=== PATIENT | male | born 1960 | race Caucasian/White ===

== ENCOUNTER 2023-11-18 19:12 | Emergency (ER) | payer MEDICAID, SELFPAY ==
--- NOTE | 2023-11-18 19:25 | PC.NURSE ---
SEEN LEAVING ER .
--- NOTE | 2023-11-18 19:45 | PC.NURSE ---
NO ANSWER AT ER LOBBY OR OUTSIDE TO BE V/S.
== END 2023-11-18 19:46 | disposition left against medical advice (07) ==
LOC: SERX 20:07
PROVIDERS: Emergency Provider Emergency Medicine
DX: Z53.21 Procedure and treatment not carried out due to patient leaving prior to being seen by health care provider (principal)

== ENCOUNTER 2024-02-22 01:50 | Emergency (ER) | payer MEDICAID, SELFPAY ==
[2024-02-22 01:51] VITALS: BMI 22.9
[2024-02-22 01:55] VITALS: BP 151/81; PULSE 88; RESP 20; TEMP 36.7; O2SAT 98
[2024-02-22] MEDS: LIDOCAINE JELLY 2% (Urojet) 10 ML TUBE TOP (02:23)
[2024-02-22 02:49] LABS: Collection Type, Urine Clean Catch; Squamous Epithelial Cell,Urine 0 /hpf (0-5)
[2024-02-22 02:54] LABS: Bilirubin,Urine Negative (Negative); Blood,Urine 3+ (Negative); Budding Yeast,Urine Present; Color,Urine Yellow (Lt Yel-Yel); Glucose, Urine Negative (Negative); Ketones,Urine Negative (Negative); Leukocyte Esterase,Urine Positive (Negative); Nitrite,Urine Negative (Negative); PH,Urine 7.5 (5.0-7.0); Protein,Urine 3+ (Neg - Trace); RBC,Urine 841 /hpf (0-3); Specific Gravity,Urine 1.021 (1.001-1.035); Urobilinogen,Urine Negative mg/dL (0.0-1.0); WBC,Urine 610 /hpf (0-5)
[2024-02-22 02:57] LABS: Clarity,Urine Turbid (Clear/Hazy)
--- NOTE | 2024-02-22 03:25 | EDNOTE_ITS ---
ED Male Genitalurinary RME/HPI General Chief complaint: Urogenital-Male Stated complaint: UNABLE TO URINATE Time Seen by Provider: 02/22/24 01:54 Arrival date/time: 02/22/24 01:50 RME / HPI RME / HPI Narrative: This section includes all my notes and documentations, including HPI, PE, and ED course. Naun Alexandra MD HPI: 63-year-old male here to be evaluated with urinary retention. Has indwelling Melgar catheter. He reports no output for about 10 hours. He reports worsening suprapubic pain. No other complaints. ROS: Gastrointestinal: negative except as documented in HPI. Genitourinary: negative except as documented in HPI. Musculoskeletal: negative except as documented in HPI. Skin: negative except as documented in HPI. Neurological: negative except as documented in HPI. Physical Exam: General: Alert and oriented. In severe pain. Eyes: Conjunctivae and lids clear. Lungs: No respiratory distress. Abdomen: Soft and nontender. Normal bowel sounds. No distension. No rebound or guarding. Back: No CVA tenderness. Skin: Warm and dry. Neuro: Alert and oriented X 3. UA remarkable for leukocyte Estrace, RBC, WBC, and yeast. At this point, diagnoses include urinary retention and UTI. Treatment here included Melgar catheter. Prescribed cefdinir and Diflucan and recommended more outpatient care. Based on my best medical judgment, made decision no further evaluation or treatment indicated at this time. Patient understands and agrees to the discharge instructions customized and printed, see below. Discharge instructions from Dr. Alexandra: 1. Unfortunately, new Melgar catheter relieves your urinary retention. But you have a urinary tract infection. 2. Take cefdinir and Diflucan to kill the germs causing the infection.? Increase oral fluid to flush it out.? Maintain clear urine.? If dark or yellow, increase oral fluid. 3. Care of the Melgar catheter as instructed in the attached handout. 4. See a private doctor on 02/25/24 for recheck.? Ask to check the final urine c ulture results from today to make sure cefdinir doesn't need to be changed due to resistance. 5. Seek immediate medical care with worsening, fever, or with any concerns. Naun Alexandra MD Related Data Home Medications ?Medication ?Instructions ?Recorded ?Confirmed tamsulosin 0.4 mg capsule 0.4 mg PO DAILY 01/19/21 07/02/21 Previous Rx's ?Medication ?Instructions ?Recorded sulfamethoxazole 800 1 tab PO BID #14 tabs 04/04/23 mg-trimethoprim 160 mg tablet acetaminophen 500 mg capsule 1,000 mg (2 x 500 mg) PO TID #30 04/23/23 caps tamsulosin 0.4 mg capsule 0.4 mg PO QDAY #14 caps 11/01/23 sulfamethoxazole 800 1 tab PO BID #14 tabs 12/28/23 mg-trimethoprim 160 mg tablet (Bactrim DS) cefdinir 300 mg capsule 300 mg PO BID #14 caps 02/22/24 fluconazole 200 mg tablet 200 mg PO QDAY #7 tabs 02/22/24 (Diflucan) Allergies Allergy/AdvReac Type Severity Reaction Status Date / Time No Known Allergies Allergy Verified 02/03/24 11:21 Course Quality Measures none Orders Category Date Time Status Melgar [Urinary Catheter, Remove] ONCE Care 02/22/24 02:35 Completed Melgar [Urinary Catheter] QS Care 02/22/24 02:35 Active Melgar to Leg Bag Routine Care 02/22/24 01:55 Ordered UA [Urinalysis] Stat Lab 02/22/24 02:30 Completed Lidocaine Jelly 2% Urojet [Xylocaine Jelly 2% Urojet] Med 02/22/24 02:18 Discontinued See Dose Instructions TOP X1 ONE Vital Signs Vital signs: Vital Signs Temperature 98.0 F 02/22/24 01:55 Pulse Rate 88 02/22/24 01:55 Respiratory Rate 20 02/22/24 01:55 Blood Pressure 151/81 H 02/22/24 01:55 Pulse Oximetry (%) 98 02/22/24 01:55 Oxygen Delivery Method Room Air 02/22/24 01:55 Urogenital - Male Patient data External records reviewed:: [facility] previous records Clinical information provided by:: patient Social determinants that could affect healthcare access:: none Patient has the following chronic illnesses:: Indwelling Melgar catheter How is presenting disease/condition affected by chronic disease/condition?: exacerbated by Evaluation data The following diagnostics were reviewed and interpreted by me:: lab results Lab and/or radiology exams considered but not ordered:: None Interpretation Summary: UTI Medications / Prescriptions Medications or Prescriptions considered but not ordered:: None Medication administrations:: Medication Administration History Discontinued Medications Lidocaine HCl (Lidocaine Jelly 2% (Urojet) 10 Ml Tube) 0 ml TOP X1 ONE Stop: 02/22/24 02:19 Last Admin: 02/22/24 02:23 Dose: 10 ml Documented By: DB None Consultations Consultation(s) initiated? (list below): No Diagnosis Urogenital Male Differential Diagnosis: urinary tract infection and acute retention of urine Most likely diagnosis given after review of the tests above:: Urinary retention and UTI Admission Indicated Admission indicated?: not indicated Explain why admission is indicated or not indicated:: Admission criteria not met Admission Request Was there a request for admission?: No Disposition Plan Disposition Plan: Discharge Discharge Attestation Discharge Attestation: The patient and all family members were given an opportunity to ask questions and understood the discharge instructions. Discharge instructions specifically effects, indications for sooner follow up or return to the emergency department, and the expected course of current diagnosis. Patient condition: Stable Discharge Plan Plan Patient Disposition: HOME (Self Care) Prescriptions/Referrals Prescriptions/Med Rec: New cefdinir 300 mg capsule 300 mg PO BID Qty: 14 0RF fluconazole [Diflucan] 200 mg tablet 200 mg PO QDAY Qty: 7 0RF No Action tamsulosin 0.4 mg capsule 0.4 mg PO DAILY sulfamethoxazole-trimethoprim [Bactrim DS] 800-160 mg tablet 1 tab PO BID Qty: 14 0RF sulfamethoxazole-trimethoprim 800-160 mg tablet 1 tab PO BID Qty: 14 0RF acetaminophen 500 mg capsule 1,000 mg PO TID Qty: 30 0RF tamsulosin 0.4 mg capsule 0.4 mg PO QDAY Qty: 14 0RF Problem List Clinical Impression: Acute urinary retention, Urinary tract infection Patient/Caregiver Discharge Instructions Discharge Activity: activity as tolerated Education Materials: ED Melgar Catheter, Care, ED Bladder Infection, Male (Adult) Additional Instructions: Discharge instructions from Dr. Alexandra: 1. Unfortunately, new Melgar catheter relieves your urinary retention. But you have a urinary tract infection. 2. Take cefdinir and Diflucan to kill the germs causing the infection.? Increase oral fluid to flush it out.? Maintain clear urine.? If dark or yellow, increase oral fluid. 3. Care of the Melgar catheter as instructed in the attached handout. 4. See a private doctor on 02/25/24 for recheck.? Ask to check the final urine culture results from today to make sure cefdinir doesn't need to be changed due to resistance. 5. Seek immediate medical care with worsening, fever, or with any concerns. Print Language: Polish Stand Alone Forms: Latoya Award Info., Patient Portal Info Letter
== END 2024-02-22 03:40 | disposition home or self-care (01) ==
LOC: SERX 03:54
PROVIDERS: Emergency Provider Emergency Medicine; PCP Family Medicine
DX: N39.0 Urinary tract infection, site not specified (principal)
CPT/HCPCS: 51702; 81001; 99283

== ENCOUNTER 2024-03-02 19:10 | Emergency (ER) | payer MEDICAID, SELFPAY ==
[2024-03-02 19:11] VITALS: BMI 22.9
[2024-03-02 19:47] VITALS: BP 143/68; PULSE 88; RESP 17; TEMP 37.1; O2SAT 96
--- NOTE | 2024-03-02 19:51 | PC.NURSE ---
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 PROVIDER MADE AWARE
== END 2024-03-02 19:50 | disposition left against medical advice (07) ==
LOC: SERX 19:55
PROVIDERS: Emergency Provider Emergency Medicine
DX: Z53.21 Procedure and treatment not carried out due to patient leaving prior to being seen by health care provider (principal)
CPT/HCPCS: 99281

== ENCOUNTER 2024-03-03 20:26 | Emergency (ER) | payer MEDICAID, SELFPAY ==
[2024-03-03 20:27] VITALS: BMI 24.1
--- NOTE | 2024-03-03 20:45 | PC.NURSE ---
no answer in lobby when called for vital signs
--- NOTE | 2024-03-03 21:00 | PC.NURSE ---
no answer in lobby when called for vital signs
--- NOTE | 2024-03-03 21:37 | PC.NURSE ---
no answer in lobby when called for vital signs
== END 2024-03-04 04:01 | disposition left against medical advice (07) ==
PROVIDERS: Emergency Provider Emergency Medicine
DX: Z53.21 Procedure and treatment not carried out due to patient leaving prior to being seen by health care provider (principal)

== ENCOUNTER 2024-03-14 18:49 | Emergency (ER) | payer MEDICAID, SELFPAY ==
[2024-03-14 18:50] VITALS: BMI 22.9
--- NOTE | 2024-03-14 19:18 | PC.NURSE ---
pt did not answer when name was called and was not found outside.
--- NOTE | 2024-03-14 19:53 | PC.NURSE ---
Pt called back to room and no answer
--- NOTE | 2024-03-14 20:10 | PC.NURSE ---
PT CALLED BACK TO A ROOM AND NO ANSWER
== END 2024-03-14 20:10 | disposition left against medical advice (07) ==
PROVIDERS: Emergency Provider Emergency Medicine
DX: Z53.21 Procedure and treatment not carried out due to patient leaving prior to being seen by health care provider (principal)

== ENCOUNTER 2024-03-15 12:52 | Emergency (ER) | payer MEDICAID, SELFPAY ==
[2024-03-15 12:53] VITALS: BMI 22.9
--- NOTE | 2024-03-15 13:05 | PD.EDMALE ---
ED Male Genitalurinary RME/HPI General Chief complaint: Medical Clearance Stated complaint: Needs turner catheter changed Time Seen by Provider: 03/15/24 13:00 Arrival date/time: 03/15/24 12:52 63-year-old male presents the emergency department today requesting Turner catheter change patient comes often for the same Limitations: no limitations Related Data Home Medications ?Medication ?Instructions ?Recorded ?Confirmed tamsulosin 0.4 mg capsule 0.4 mg PO DAILY 01/19/21 07/02/21 Previous Rx's ?Medication ?Instructions ?Recorded sulfamethoxazole 800 1 tab PO BID #14 tabs 04/04/23 mg-trimethoprim 160 mg tablet acetaminophen 500 mg capsule 1,000 mg (2 x 500 mg) PO TID #30 04/23/23 caps tamsulosin 0.4 mg capsule 0.4 mg PO QDAY #14 caps 11/01/23 sulfamethoxazole 800 1 tab PO BID #14 tabs 12/28/23 mg-trimethoprim 160 mg tablet (Bactrim DS) cefdinir 300 mg capsule 300 mg PO BID #14 caps 02/22/24 fluconazole 200 mg tablet 200 mg PO QDAY #7 tabs 02/22/24 (Diflucan) Allergies Allergy/AdvReac Type Severity Reaction Status Date / Time No Known Allergies Allergy Verified 03/14/24 18:52 Review of Systems Review of Systems Systems Reviewed: All systems reviewed, normal except as documented Constitutional Constitutional: Reports system reviewed and no additional complaints, except as documented, Denies fever(s) and Denies headache(s) Eyes Eyes: Reports system reviewed and no additional complaints, except as documented and Denies blurry vision ENT Ears, Nose, Mouth, and Throat: Reports system reviewed and no additional complaints, except as documented, Denies headache(s), Denies nasal congestion and Denies nasal discharge Cardiovascular Cardiovascular: Reports system reviewed and no additional complaints, except as documented, Denies chest pain and Denies dyspnea Respiratory Respiratory: Reports system reviewed and no additional complaints, except as documented, Denies chest congestion, Denies cough and Denies dyspnea Gastrointestinal Gastrointestinal: Reports system reviewed and no additional complaints, except as documented and Denies abdominal pain Genitourinary Genitourinary: Reports system reviewed and no additional complaints, except as documented and Reports other (Turner catheter problem) Integumentary/Breasts Skin/Breast: Reports system reviewed and no additional complaints, except as documented and Denies rash Neurologic Neurologic: Reports system reviewed and no additional complaints, except as documented, Reports as per HPI and Denies headache(s) Past Medical History Past Medical History NEUROLOGIC: Negative Neurological Disorders CARDIAC: Negative Cardiac Disorders ED Exam General Limitations: Present no limitations General appearance: Present alert and in no apparent distress Head Head exam: Present atraumatic Eye Eye exam: Present normal appearance, PERRL and EOMI ENT ENT exam: Present normal exam, normal oropharynx and mucous membranes moist Neck Neck exam: Present normal inspection, full ROM and trachea midline Chest Chest inspection: Present normal inspection and symmetric chest wall rise Respiratory Respiratory exam: Present normal lung sounds bilaterally; Absent respiratory distress Cardiovascular Cardiovascular exam: Present regular rate, normal rhythm and normal heart sounds Abdominal Exam Abdominal exam: Present soft and normal bowel sounds; Absent distention, tenderness, guarding, rebound or rigidity exam: Present other (Turner catheter in place) Extremities Exam Extremities exam: Present normal inspection and full ROM Back Exam Back exam: Present normal inspection and full ROM Neurological Exam Neurological exam: Present alert, oriented X3 and CN II-XII intact Psychiatric Psychiatric exam: Present normal affect and normal mood Skin Skin exam: Present warm, dry, intact and normal color Course Quality Measures none Orders Category Date Time Status Turner [Urinary Catheter] NOW Care 03/15/24 13:02 Active Lidocaine Jelly 2% Urojet [Xylocaine Jelly 2% Urojet] Med 03/15/24 13:02 Discontinued See Dose Instructions TOP X1 ONE Vital Signs Vital signs: O2 saturation 98% room air with normal Urogenital - Male MDM Narrative MDM Narrative:: 63-year-old male presents the emergency department today requesting Turner catheter change patient comes often for the same On exam patient well-appearing patient does not appear ill or toxic patient does not appear in any acute distress Patient reports no fever nausea or vomiting Patient's Turner catheter changed drains well Patient discharged home in no distress to follow-up with primary care doctor in the next 24 to 48 hours and for any worsening symptoms to return to the ER immediately Patient data External records reviewed:: [facility] previous records Clinical information provided by:: patient Social determinants that could affect healthcare access:: none Patient has the following chronic illnesses:: See history How is presenting disease/condition affected by chronic disease/condition?: caused by Evaluation data The following diagnostics were reviewed and interpreted by me:: other (specify) (N/A) Lab and/or radiology exams considered but not ordered:: Consider not ordered Interpretation Summary: N/A Medications / Prescriptions Medications or Prescriptions considered but not ordered:: Given Medication administrations:: Medication Administration History Discontinued Medications Lidocaine HCl (Lidocaine Jelly 2% (Urojet) 10 Ml Tube) 0 ml TOP X1 ONE Stop: 03/15/24 13:03 Last Admin: 03/15/24 13:29 Dose: 10 ml Documented By: PIOTR Given Consultations Consultation(s) initiated? (list below): No Diagnosis Urogenital Male Differential Diagnosis: urinary tract infection and acute retention of urine Most likely diagnosis given after review of the tests above:: Chronic urinary retention Admission Indicated Admission indicated?: not indicated Admission Request Was there a request for admission?: No Disposition Plan Disposition Plan: Discharge Discharge Attestation Discharge Attestation: The patient and all family members were given an opportunity to ask questions and understood the discharge instructions. Discharge instructions specifically effects, indications for sooner follow up or return to the emergency department, and the expected course of current diagnosis. Patient condition: Stable Discharge Plan Plan Patient Disposition: HOME (Self Care) Disposition Comment: Stable Prescriptions/Referrals Prescriptions/Med Rec: No Action tamsulosin 0.4 mg capsule 0.4 mg PO DAILY sulfamethoxazole-trimethoprim [Bactrim DS] 800-160 mg tablet 1 tab PO BID Qty: 14 0RF sulfamethoxazole-trimethoprim 800-160 mg tablet 1 tab PO BID Qty: 14 0RF acetaminophen 500 mg capsule 1,000 mg PO TID Qty: 30 0RF tamsulosin 0.4 mg capsule 0.4 mg PO QDAY Qty: 14 0RF cefdinir 300 mg capsule 300 mg PO BID Qty: 14 0RF fluconazole [Diflucan] 200 mg tablet 200 mg PO QDAY Qty: 7 0RF Problem List Clinical Impression: Acute on chronic urinary retention, Urinary catheter (Turner) change required Patient/Caregiver Discharge Instructions Education Materials: Self-Catheterization for Men Additional Instructions: Please follow up with your primary care doctor in the next 24-48hrs for any worsening symptoms return here immediately Print Language: Polish Stand Alone Forms: Latoya Award Info., Patient Portal Info Letter PA/FAMILY INDEPENDENCE CASE MANAGER Supervising Physician ALPHONSO/CECILIA Supervising Physician: Dr noel
[2024-03-15] MEDS: LIDOCAINE JELLY 2% (Urojet) 10 ML TUBE TOP (13:29)
== END 2024-03-15 13:42 | disposition home or self-care (01) ==
LOC: SERX 13:50
PROVIDERS: Emergency Provider Emergency Medicine
DX: Z46.6 Encounter for fitting and adjustment of urinary device (principal); R33.9 Retention of urine, unspecified
CPT/HCPCS: 51702; 99283

== ENCOUNTER 2024-03-21 21:38 | Emergency (ER) | payer MEDICAID, SELFPAY ==
[2024-03-21 21:39] VITALS: BMI 27.4
[2024-03-21 21:45] VITALS: BP 155/82; PULSE 107; RESP 17; TEMP 36.7; O2SAT 97
--- NOTE | 2024-03-21 22:50 | PD.EDMALE ---
ED Male Genitalurinary RME/HPI General Chief complaint: Urogenital-Male Stated complaint: MELGAR CAME OUT Time Seen by Provider: 03/21/24 21:41 Arrival date/time: 03/21/24 21:38 RME / HPI RME / HPI Narrative: This section includes all my notes and documentations, including HPI, PE, and ED course. Naun Alexandra MD HPI: 63-year-old male here to be evaluated with urinary retention. Has chronic indwelling urinary catheter, for about 2 years. Earlier today, the catheter pulled out. And he reports worsening suprapubic pain. No other complaints. ROS: All negative except as documented in HPI. Physical Exam: General: Alert and oriented. Appears uncomfortable. Eyes: Conjunctivae and lids clear. ENT: No nasal congestion. Neck: Supple. Lungs: No respiratory distress. Abdomen: Soft and nontender. Normal bowel sounds. No distension. No rebound or guarding. Back: No CVA tenderness. Skin: Warm and dry. Neuro: Alert and oriented X 3. Treatment here included new Melgar catheter insertion. He felt much better. Based on my best medical judgment, made decision no further evaluation or treatment indicated at this time. Patient understands and agrees to the discharge instructions customized and printed, see below. Discharge Instructions from Dr. Alexandra printed for you: 1. Melgar catheter was inserted for your urinary retention. 2. Care of the Melgar as instructed and attached handout. 3. See your private doctor on 03/23/2024 for recheck and further care. Ask to check the urine test results from today. 4. Seek immediate medical care with any concerns. Naun Alexandra MD Related Data Home Medications ?Medication ?Instructions ?Recorded ?Confirmed tamsulosin 0.4 mg capsule 0.4 mg PO DAILY 01/19/21 07/02/21 Previous Rx's ?Medication ?Instructions ?Recorded sulfamethoxazole 800 1 tab PO BID #14 tabs 04/04/23 mg-trimethoprim 160 mg tablet acetaminophen 500 mg capsule 1,000 mg (2 x 500 mg) PO TID #30 04/23/23 caps tamsulosin 0.4 mg capsule 0.4 mg PO QDAY #14 caps 11/01/23 sulfamethoxazole 800 1 tab PO BID #14 tabs 12/28/23 mg-trimethoprim 160 mg tablet (Bactrim DS) cefdinir 300 mg capsule 300 mg PO BID #14 caps 02/22/24 fluconazole 200 mg tablet 200 mg PO QDAY #7 tabs 02/22/24 (Diflucan) Allergies Allergy/AdvReac Type Severity Reaction Status Date / Time No Known Allergies Allergy Verified 03/21/24 21:40 Course Quality Measures none Orders Category Date Time Status Melgar to Leg Bag Routine Care 03/21/24 21:43 Ordered Lidocaine Jelly 2% Urojet [Xylocaine Jelly 2% Urojet] Med 03/21/24 21:42 Discontinued See Dose Instructions TOP X1 ONE Vital Signs Vital signs: Vital Signs Temperature 98.0 F 03/21/24 21:45 Pulse Rate 107 H 03/21/24 21:45 Respiratory Rate 17 03/21/24 21:45 Blood Pressure 155/82 H 03/21/24 21:45 Pulse Oximetry (%) 97 03/21/24 21:45 Oxygen Delivery Method Room Air 03/21/24 21:45 Urogenital - Male Patient data External records reviewed:: [facility] previous records Clinical information provided by:: patient Social determinants that could affect healthcare access:: none Patient has the following chronic illnesses:: Chronic indwelling Melgar catheter How is presenting disease/condition affected by chronic disease/condition?: exacerbated by Evaluation data The following diagnostics were reviewed and interpreted by me:: other (specify) (No diagnostic tests) Lab and/or radiology exams considered but not ordered:: None Interpretation Summary: Not applicable Medications / Prescriptions Medications or Prescriptions considered but not ordered:: None Medication administrations:: Medication Administration History Discontinued Medications Lidocaine HCl (Lidocaine Jelly 2% (Urojet) 10 Ml Tube) 0 ml TOP X1 ONE Stop: 03/21/24 21:43 Last Admin: 03/21/24 23:06 Dose: 10 ml Documented By: PEPE Topical lidocaine Consultations Consultation(s) initiated? (list below): No Diagnosis Urogenital Male Differential Diagnosis: acute retention of urine Most likely diagnosis given after review of the tests above:: Acute urinary retention Admission Indicated Admission indicated?: not indicated Explain why admission is indicated or not indicated:: Admission criteria not met Admission Request Was there a request for admission?: No Disposition Plan Disposition Plan: Discharge Discharge Attestation Discharge Attestation: The patient and all family members were given an opportunity to ask questions and understood the discharge instructions. Discharge instructions specifically effects, indications for sooner follow up or return to the emergency department, and the expected course of current diagnosis. Patient condition: Stable Discharge Plan Plan Patient Disposition: HOME (Self Care) Prescriptions/Referrals Prescriptions/Med Rec: No Action tamsulosin 0.4 mg capsule 0.4 mg PO DAILY sulfamethoxazole-trimethoprim [Bactrim DS] 800-160 mg tablet 1 tab PO BID Qty: 14 0RF sulfamethoxazole-trimethoprim 800-160 mg tablet 1 tab PO BID Qty: 14 0RF acetaminophen 500 mg capsule 1,000 mg PO TID Qty: 30 0RF tamsulosin 0.4 mg capsule 0.4 mg PO QDAY Qty: 14 0RF cefdinir 300 mg capsule 300 mg PO BID Qty: 14 0RF fluconazole [Diflucan] 200 mg tablet 200 mg PO QDAY Qty: 7 0RF Referrals: Parminder Lyles MD [Primary Care Provider] - In 1 week Problem List Clinical Impression: Acute urinary retention Patient/Caregiver Discharge Instructions Discharge Activity: activity as tolerated Education Materials: ED Melgar Catheter, Care, ED Urinary Retention, Male Additional Instructions: Discharge Instructions from Dr. Alexandra printed for you: 1. Melgar catheter was inserted for your urinary retention. 2. Care of the Melgar as instructed and attached handout. 3. See your private doctor on 03/23/2024 for recheck and further care. Ask to check the urine test results from today. 4. Seek immediate medical care with any concerns. Print Language: Liberian Stand Alone Forms: Latoya Award Info., Patient Portal Info Letter
[2024-03-21] MEDS: LIDOCAINE JELLY 2% (Urojet) 10 ML TUBE TOP (23:06)
== END 2024-03-21 23:30 | disposition home or self-care (01) ==
PROVIDERS: Emergency Provider Emergency Medicine; PCP Family Medicine
DX: R33.9 Retention of urine, unspecified (principal)
CPT/HCPCS: 51702; 81001; 99283

== ENCOUNTER 2024-03-24 18:23 | Emergency (ER) | payer MEDICAID, SELFPAY ==
[2024-03-24 18:24] VITALS: BMI 24.3
[2024-03-24 18:47] VITALS: BP 137/78; PULSE 89; RESP 19; TEMP 36.7; O2SAT 99
--- NOTE | 2024-03-24 19:11 | PD.EDMALE ---
ED Male Genitalurinary RME/HPI General Chief complaint: Urogenital-Male Stated complaint: F/C CAME OUT Time Seen by Provider: 03/24/24 19:05 Arrival date/time: 03/24/24 18:23 63M with history of BPH presents to ED for asking for Melgar replacement due to it falling out. Patient is finally getting surgery next month in [place]. Limitations: no limitations Related Data Home Medications ?Medication ?Instructions ?Recorded ?Confirmed tamsulosin 0.4 mg capsule 0.4 mg PO DAILY 01/19/21 07/02/21 Previous Rx's ?Medication ?Instructions ?Recorded sulfamethoxazole 800 1 tab PO BID #14 tabs 04/04/23 mg-trimethoprim 160 mg tablet acetaminophen 500 mg capsule 1,000 mg (2 x 500 mg) PO TID #30 04/23/23 caps tamsulosin 0.4 mg capsule 0.4 mg PO QDAY #14 caps 11/01/23 sulfamethoxazole 800 1 tab PO BID #14 tabs 12/28/23 mg-trimethoprim 160 mg tablet (Bactrim DS) cefdinir 300 mg capsule 300 mg PO BID #14 caps 02/22/24 fluconazole 200 mg tablet 200 mg PO QDAY #7 tabs 02/22/24 (Diflucan) Allergies Allergy/AdvReac Type Severity Reaction Status Date / Time No Known Allergies Allergy Verified 03/24/24 18:25 Review of Systems Review of Systems Systems Reviewed: All systems reviewed, normal except as documented Constitutional Constitutional: Reports system reviewed and no additional complaints, except as documented, Denies fever(s) and Denies headache(s) ENT Ears, Nose, Mouth, and Throat: Denies disequilibrium and Denies headache(s) Cardiovascular Cardiovascular: Reports system reviewed and no additional complaints, except as documented, Denies chest pain and Denies dyspnea Respiratory Respiratory: Reports system reviewed and no additional complaints, except as documented, Denies cough and Denies dyspnea Gastrointestinal Gastrointestinal: Reports system reviewed and no additional complaints, except as documented, Denies abdominal pain, Denies nausea and Denies vomiting Neurologic Neurologic: Reports system reviewed and no additional complaints, except as documented, Denies confusion, Denies disequilibrium and Denies headache(s) Psychiatric Psychiatric: Denies confusion Past Medical History Past Medical History NEUROLOGIC: Negative Neurological Disorders or Seizures CARDIAC: Negative Cardiac Disorders or Congestive Heart Failure RESPIRATORY: Negative Chronic Obstructive Pulmonary Disease (COPD) or Asthma GENITOURINARY: Positive Genitourinary Disorders, Kidney Stones and Benign Prostatic Hyperplasia; Negative Renal Disease MUSCULOSKELETAL: Positive Musculoskeletal Disorders and Degenerative Joint Disease ENDOCRINE: Negative Diabetes Mellitus Type 1 or Diabetes Mellitus Type 2 HEMATOLOGIC: Negative Sickle Cell Disease OTHER HISTORY: Negative Blood Transfusions, Blood Transfusion Reaction or Anesthesia Reactions Social History SMOKING STATUS: Current some day smoker SUBSTANCE USE: does not use ED Exam General Limitations: Present no limitations General appearance: Present alert and in no apparent distress Head Head exam: Present atraumatic Eye Eye exam: Present normal appearance, PERRL and EOMI ENT ENT exam: Present normal exam, normal oropharynx and mucous membranes moist Neck Neck exam: Present normal inspection, full ROM and trachea midline Chest Chest inspection: Present normal inspection and symmetric chest wall rise Respiratory Respiratory exam: Present normal lung sounds bilaterally Cardiovascular Cardiovascular exam: Present regular rate, normal rhythm and normal heart sounds Abdominal Exam Abdominal exam: Present soft and normal bowel sounds Extremities Exam Extremities exam: Present normal inspection and full ROM Back Exam Back exam: Present normal inspection and full ROM Neurological Exam Neurological exam: Present alert, oriented X3 and CN II-XII intact Psychiatric Psychiatric exam: Present normal affect and normal mood Skin Skin exam: Present warm, dry, intact and normal color Course Quality Measures none Orders Category Date Time Status Catheter [Urinary Catheter] QS Care 03/24/24 19:05 Active Melgar to Leg Bag Routine Care 03/24/24 19:05 Ordered Lidocaine Jelly 2% Urojet [Xylocaine Jelly 2% Urojet] Med 03/24/24 19:05 Discontinued See Dose Instructions TOP X1 ONE Vital Signs Vital signs: Vital Signs Temperature 98.0 F 03/24/24 18:47 Pulse Rate 89 03/24/24 18:47 Respiratory Rate 19 03/24/24 18:47 Blood Pressure 137/78 H 03/24/24 18:47 Pulse Oximetry (%) 99 03/24/24 18:47 Oxygen Delivery Method Room Air 03/24/24 18:47 O2 at 99% on RA and WNLs Urogenital - Male MDM Narrative MDM Narrative:: 63M with history of BPH presents to ED for asking for Melgar replacement due to it falling out. Patient is finally getting surgery next month in [place]. Physical exam reveals no ab tenderness. Patient is afebrile. Patient Melgar replaced. Urine flowed freely. Patient data External records reviewed:: [facility] previous records Clinical information provided by:: patient Social determinants that could affect healthcare access:: none Patient has the following chronic illnesses:: BPH How is presenting disease/condition affected by chronic disease/condition?: caused by Evaluation data The following diagnostics were reviewed and interpreted by me:: other (specify) (none) Lab and/or radiology exams considered but not ordered:: not ordered Interpretation Summary: n/a Medications / Prescriptions Medications or Prescriptions considered but not ordered:: ordered Medication administrations:: Medication Administration History Discontinued Medications Lidocaine HCl (Lidocaine Jelly 2% (Urojet) 10 Ml Tube) 0 ml TOP X1 ONE Stop: 03/24/24 19:06 above Consultations Consultation(s) initiated? (list below): No Diagnosis Urogenital Male Differential Diagnosis: urinary tract infection, priapism, urethritis, epididymitis, genital herpes simplex, prostatitis, acute retention of urine, inguinal hernia and other (Melgar replacement) Most likely diagnosis given after review of the tests above:: Melgar replacement Admission Indicated Admission indicated?: not indicated Admission Request Was there a request for admission?: No Disposition Plan Disposition Plan: Discharge Discharge Attestation Discharge Attestation: The patient and all family members were given an opportunity to ask questions and understood the discharge instructions. Discharge instructions specifically effects, indications for sooner follow up or return to the emergency department, and the expected course of current diagnosis. Patient condition: Stable Discharge Plan Plan Patient Disposition: HOME (Self Care) Disposition Comment: Stable Prescriptions/Referrals Prescriptions/Med Rec: No Action tamsulosin 0.4 mg capsule 0.4 mg PO DAILY sulfamethoxazole-trimethoprim [Bactrim DS] 800-160 mg tablet 1 tab PO BID Qty: 14 0RF sulfamethoxazole-trimethoprim 800-160 mg tablet 1 tab PO BID Qty: 14 0RF acetaminophen 500 mg capsule 1,000 mg PO TID Qty: 30 0RF tamsulosin 0.4 mg capsule 0.4 mg PO QDAY Qty: 14 0RF cefdinir 300 mg capsule 300 mg PO BID Qty: 14 0RF fluconazole [Diflucan] 200 mg tablet 200 mg PO QDAY Qty: 7 0RF Problem List Clinical Impression: Encounter for Melgar catheter replacement Patient/Caregiver Discharge Instructions Additional Instructions: Please follow-up with PCP within 24-48 hours and return immediately if symptoms worsen. Print Language: Luxembourgish Stand Alone Forms: Patient Portal Info Letter PA/CARDIOVASCULAR SURGEON Supervising Physician PA/CARDIOVASCULAR SURGEON Supervising Physician: Dr. Pavon
[2024-03-24] MEDS: LIDOCAINE JELLY 2% (Urojet) 10 ML TUBE TOP (19:29)
== END 2024-03-24 19:40 | disposition home or self-care (01) ==
LOC: SERX 19:36
PROVIDERS: Emergency Provider Emergency Medicine
DX: Z46.6 Encounter for fitting and adjustment of urinary device (principal); N40.0 Benign prostatic hyperplasia without lower urinary tract symptoms
CPT/HCPCS: 51702; 99283

== ENCOUNTER 2024-04-07 16:57 | Emergency (ER) | payer MEDICAID, SELFPAY ==
[2024-04-07 16:58] VITALS: BMI 21.5
--- NOTE | 2024-04-07 17:23 | EDNOTE_ITS ---
ED Male Genitalurinary RME/HPI General Chief complaint: Urogenital-Male Stated complaint: NEED SAINI CHANGED Time Seen by Provider: 04/07/24 17:15 Arrival date/time: 04/07/24 16:57 63-year-old male presents the emergency department today requesting Saini catheter change patient comes often for the same Limitations: no limitations Related Data Home Medications ?Medication ?Instructions ?Recorded ?Confirmed tamsulosin 0.4 mg capsule 0.4 mg PO DAILY 01/19/21 07/02/21 Previous Rx's ?Medication ?Instructions ?Recorded sulfamethoxazole 800 1 tab PO BID #14 tabs 04/04/23 mg-trimethoprim 160 mg tablet acetaminophen 500 mg capsule 1,000 mg (2 x 500 mg) PO TID #30 04/23/23 caps tamsulosin 0.4 mg capsule 0.4 mg PO QDAY #14 caps 11/01/23 sulfamethoxazole 800 1 tab PO BID #14 tabs 12/28/23 mg-trimethoprim 160 mg tablet (Bactrim DS) cefdinir 300 mg capsule 300 mg PO BID #14 caps 02/22/24 fluconazole 200 mg tablet 200 mg PO QDAY #7 tabs 02/22/24 (Diflucan) Allergies Allergy/AdvReac Type Severity Reaction Status Date / Time No Known Allergies Allergy Verified 04/07/24 16:59 Review of Systems Review of Systems Systems Reviewed: All systems reviewed, normal except as documented Constitutional Constitutional: Reports system reviewed and no additional complaints, except as documented, Denies fever(s) and Denies headache(s) Eyes Eyes: Reports system reviewed and no additional complaints, except as documented and Denies blurry vision ENT Ears, Nose, Mouth, and Throat: Reports system reviewed and no additional complaints, except as documented, Denies headache(s), Denies nasal congestion and Denies nasal discharge Cardiovascular Cardiovascular: Reports system reviewed and no additional complaints, except as documented, Denies chest pain and Denies dyspnea Respiratory Respiratory: Reports system reviewed and no additional complaints, except as documented, Denies chest congestion, Denies cough and Denies dyspnea Gastrointestinal Gastrointestinal: Reports system reviewed and no additional complaints, except as documented and Denies abdominal pain Genitourinary Genitourinary: Reports system reviewed and no additional complaints, except as documented and Reports other (Saini catheter in place) Integumentary/Breasts Skin/Breast: Reports system reviewed and no additional complaints, except as documented and Denies rash Neurologic Neurologic: Reports system reviewed and no additional complaints, except as documented, Reports as per HPI and Denies headache(s) Past Medical History Past Medical History NEUROLOGIC: Negative Neurological Disorders CARDIAC: Negative Cardiac Disorders ED Exam General Limitations: Present no limitations General appearance: Present alert and in no apparent distress Head Head exam: Present atraumatic Eye Eye exam: Present normal appearance, PERRL and EOMI ENT ENT exam: Present normal exam, normal oropharynx and mucous membranes moist Neck Neck exam: Present normal inspection, full ROM and trachea midline Chest Chest inspection: Present normal inspection and symmetric chest wall rise Respiratory Respiratory exam: Present normal lung sounds bilaterally Cardiovascular Cardiovascular exam: Present regular rate, normal rhythm and normal heart sounds Abdominal Exam Abdominal exam: Present soft and normal bowel sounds; Absent distention, tenderness, guarding, rebound or rigidity exam: Present normal testicular lie and other (Saini catheter in place); Absent urethral discharge or scrotal swelling Extremities Exam Extremities exam: Present normal inspection and full ROM Back Exam Back exam: Present normal inspection and full ROM Neurological Exam Neurological exam: Present alert, oriented X3, CN II-XII intact, normal gait and reflexes normal; Absent motor sensory deficit Psychiatric Psychiatric exam: Present normal affect and normal mood Skin Skin exam: Present warm, dry, intact and normal color; Absent rash Course Quality Measures none Orders Category Date Time Status Saini [Urinary Catheter, Remove] ONCE Care 04/07/24 17:19 Active Saini to Leg Bag NOW Care 04/07/24 17:20 Ordered Lidocaine Jelly 2% Urojet [Xylocaine Jelly 2% Urojet] Med 04/07/24 17:19 Discontinued See Dose Instructions TOP X1 ONE Vital Signs Vital signs: Vital Signs Temperature 97.5 F 04/07/24 17:38 Pulse Rate 88 04/07/24 17:38 Respiratory Rate 20 04/07/24 17:38 Blood Pressure 124/74 04/07/24 17:38 Pulse Oximetry (%) 96 04/07/24 17:38 Oxygen Delivery Method Room Air 04/07/24 17:38 O2 saturation 96% room air within normal limits Urogenital - Male MDM Narrative MDM Narrative:: 63-year-old male presents the emergency department today requesting Saini catheter change patient comes often for the same On exam patient well-appearing patient does not appear ill or toxic patient does not appear in any acute distress Patient reports no fever nausea or vomiting Patient's Saini catheter changed drains well Patient discharged home in no distress to follow-up with primary care doctor in the next 24 to 48 hours and for any worsening symptoms to return to the ER immediately Patient data External records reviewed:: [facility] previous records Clinical information provided by:: patient Social determinants that could affect healthcare access:: none Patient has the following chronic illnesses:: See history How is presenting disease/condition affected by chronic disease/condition?: caused by Evaluation data The following diagnostics were reviewed and interpreted by me:: other (specify) (N/A) Lab and/or radiology exams considered but not ordered:: N/A Interpretation Summary: N/A Medications / Prescriptions Medications or Prescriptions considered but not ordered:: Given Medication administrations:: Medication Administration History Discontinued Medications Lidocaine HCl (Lidocaine Jelly 2% (Urojet) 10 Ml Tube) 0 ml TOP X1 ONE Stop: 04/07/24 17:20 Given Consultations Consultation(s) initiated? (list below): No Diagnosis Urogenital Male Differential Diagnosis: urinary tract infection, urethritis and acute retention of urine Most likely diagnosis given after review of the tests above:: Saini catheter change, chronic urine retention Admission Indicated Admission indicated?: not indicated Admission Request Was there a request for admission?: No Disposition Plan Disposition Plan: Discharge Discharge Attestation Discharge Attestation: The patient and all family members were given an opportunity to ask questions and understood the discharge instructions. Discharge instructions specifically effects, indications for sooner follow up or return to the emergency department, and the expected course of current diagnosis. Patient condition: Stable Discharge Plan Plan Patient Disposition: HOME (Self Care) Disposition Comment: Stable Prescriptions/Referrals Prescriptions/Med Rec: No Action tamsulosin 0.4 mg capsule 0.4 mg PO DAILY sulfamethoxazole-trimethoprim [Bactrim DS] 800-160 mg tablet 1 tab PO BID Qty: 14 0RF sulfamethoxazole-trimethoprim 800-160 mg tablet 1 tab PO BID Qty: 14 0RF acetaminophen 500 mg capsule 1,000 mg PO TID Qty: 30 0RF tamsulosin 0.4 mg capsule 0.4 mg PO QDAY Qty: 14 0RF cefdinir 300 mg capsule 300 mg PO BID Qty: 14 0RF fluconazole [Diflucan] 200 mg tablet 200 mg PO QDAY Qty: 7 0RF Problem List Clinical Impression: Acute on chronic urinary retention, Urinary catheter (Saini) change required Patient/Caregiver Discharge Instructions Education Materials: [id number] Inserting a ... Additional Instructions: Please follow up with your primary care doctor in the next 24-48hrs for any worsening symptoms return here immediately Print Language: Botswanan Stand Alone Forms: Latoya Award Info., Patient Portal Info Letter PA/LOG HANDLER Supervising Physician PA/LOG HANDLER Supervising Physician: Dr. Alexandra
[2024-04-07 17:38] VITALS: BP 124/74; PULSE 88; RESP 20; TEMP 36.4; O2SAT 96
== END 2024-04-07 18:44 | disposition home or self-care (01) ==
LOC: SERX 18:45
PROVIDERS: Emergency Provider Emergency Medicine
DX: Z46.6 Encounter for fitting and adjustment of urinary device (principal); R33.9 Retention of urine, unspecified
CPT/HCPCS: 51702; 99283

== ENCOUNTER 2024-05-10 17:38 | Emergency (ER) | payer MEDICAID, SELFPAY ==
[2024-05-10 17:45] VITALS: BP 149/82; PULSE 96; RESP 16; TEMP 36.8; O2SAT 96; BMI 22.9
--- NOTE | 2024-05-10 17:50 | EDRME_ITS ---
Rapid Medical Screening Exam [facility] Arrival date/time: 05/10/24 17:38 63-year-old male with a history of BPH presents to the emergency room with a chief complaint of dysuria and needing his Melgar catheter replaced. Patient has a Melgar catheter in place due to acute urinary retention. Patient is going to see his urologist on the and states he just wants his Melgar catheter replaced to make sure he does not have urinary infection. I have greeted and performed a focused initial assessment of this patient. A comprehensive ED assessment and evaluation of the patient, analysis of all test results, and completion of the medical decision making process will be conducted by additional ED providers. Chief Complaint: Urogenital-Male Vital signs: Vital Signs Temperature 98.3 F 05/10/24 17:45 Pulse Rate 96 05/10/24 17:45 Respiratory Rate 16 05/10/24 17:45 Blood Pressure 149/82 H 05/10/24 17:45 Pulse Oximetry (%) 96 05/10/24 17:45 Oxygen Delivery Method Room Air 05/10/24 17:45 Vital signs reviewed by provider: Yes
[2024-05-10] MEDS: LIDOCAINE JELLY 2% (Urojet) 10 ML TUBE TOP (19:42)
--- NOTE | 2024-05-10 20:24 | PC.NURSE ---
AFTER SAINI INSERTED, PT INFORMED JOSE WERNER THAT HE IS LEAVING.
== END 2024-05-10 20:25 | disposition left against medical advice (07) ==
PROVIDERS: Emergency Provider Emergency Medicine; PCP Family Medicine
DX: Z46.6 Encounter for fitting and adjustment of urinary device (principal); N40.1 Benign prostatic hyperplasia with lower urinary tract symptoms; R33.8 Other retention of urine; Z53.29 Procedure and treatment not carried out because of patient's decision for other reasons
CPT/HCPCS: 51702; 81001; 99283

== ENCOUNTER 2024-05-13 13:15 | Emergency (ER) | payer MEDICAID, SELFPAY ==
--- NOTE | 2024-05-13 13:56 | PD.EDEYE ---
ED Eye Problem RME/HPI General Chief complaint: Eye Problems Stated complaint: METAL TO LEFT EYE Time Seen by Provider: 05/13/24 13:38 Arrival date/time: 05/13/24 13:15 RME / HPI RME / HPI Narrative: 63-year-old male patient came in for evaluation regarding foreign body left cornea. Patient was shaving metal 2 days ago and now complaining of foreign body sensation, left eye. Patient denies any blurry vision denies any visual changes denies any headache denies any fever denies any other complaints. Patient is ambulatory. Related Data Home Medications ?Medication ?Instructions ?Recorded ?Confirmed tamsulosin 0.4 mg capsule 0.4 mg PO DAILY 01/19/21 07/02/21 Previous Rx's ?Medication ?Instructions ?Recorded sulfamethoxazole 800 1 tab PO BID #14 tabs 04/04/23 mg-trimethoprim 160 mg tablet acetaminophen 500 mg capsule 1,000 mg (2 x 500 mg) PO TID #30 04/23/23 caps tamsulosin 0.4 mg capsule 0.4 mg PO QDAY #14 caps 11/01/23 sulfamethoxazole 800 1 tab PO BID #14 tabs 12/28/23 mg-trimethoprim 160 mg tablet (Bactrim DS) cefdinir 300 mg capsule 300 mg PO BID #14 caps 02/22/24 fluconazole 200 mg tablet 200 mg PO QDAY #7 tabs 02/22/24 (Diflucan) Allergies Allergy/AdvReac Type Severity Reaction Status Date / Time No Known Allergies Allergy Verified 05/13/24 13:17 Review of Systems Review of Systems Narrative Review of Systems: Review of system reviewed and within normal limits except mentioned in HPI ED Exam Narrative Physical exam: VITAL SIGNS: Reviewed. GENERAL APPEARANCE: Alert and interactive, follows commands, no acute distress, HEAD AND FACE: Non-traumatic. ENT: PERRL, pink conjunctivitis, eyelid no trauma, Mucous membrane moist. Foreign body noted on the left eye at 9 o'clock position in the cornea NECK: Supple, nontender, no nuchal rigidity. CHEST: No tenderness, no crepitus, no paradoxical movement, no retractions. LUNGS: Clear, well ventilated, symmetric, no rales, no wheezing, no ronchi, no stridor, good breath sounds bilaterally. HEART: Regular rate, regular rhythm, no murmur, no gallops. ABDOMEN: Soft, positive bowel sounds, nondistended, no guarding, nontender, no rebound, no masses, RECTAL: Deferred. GENITAL: Deferred. NEUROLOGICAL: Gross motor function intact sensory function intact, Appropriate for age. MUSCULOSKELETAL: low back nontender, full range of motion. EXTREMITIES: Nontender, full range of motion. SKIN: Color pink, dry, no rash, no lacerations, no abrasions, no contusions. LYMPHATICS: Deferred. Course Quality Measures none Orders Category Date Time Status MICAH/POLY/HC (Cortisporin) OP [Cortisporin Op Gabrielle] Med 05/13/24 13:56 Once See Dose Instructions LEFT EYE X1 ONE Eye MDM Narrative MDM Narrative:: 63-year-old male patient came in for evaluation regarding foreign body left cornea. Patient was shaving metal 2 days ago and now complaining of foreign body sensation, left eye. Patient denies any blurry vision denies any visual changes denies any headache denies any fever denies any other complaints. Patient is ambulatory. Eye was examined under the Dong lamp. Tetracaine ophthalmic drop was administered to the eye and fluorescein strip was applied and was then illustrated under the Dong lamp. Abrasion abrasion/foreign body noted at 9:00 o'clock, foreign body was removed gently with no difficulty., Eye was then irrigated with copious amounts of eye stream. Procedure was well tolerated by patient. Verbalized understanding. Patient was also given Cortisporin eyedrops Patient data External records reviewed:: None Clinical information provided by:: patient Social determinants that could affect healthcare access:: none Patient has the following chronic illnesses:: BPH How is presenting disease/condition affected by chronic disease/condition?: uneffected by Evaluation data The following diagnostics were reviewed and interpreted by me:: other (specify) (None) Lab and/or radiology exams considered but not ordered:: None Interpretation Summary: None Medications / Prescriptions Medications or Prescriptions considered but not ordered:: None Medication administrations:: None Consultations Consultation(s) initiated? (list below): No Diagnosis Eye Problem Differential Diagnosis: corneal abrasion and other (Foreign body cornea) Most likely diagnosis given after review of the tests above:: Foreign body cornea Admission Indicated Admission indicated?: not indicated Explain why admission is indicated or not indicated:: Stable Admission Request Was there a request for admission?: No Disposition Plan Disposition Plan: Discharge Discharge Attestation Discharge Attestation: The patient was given an opportunity to ask questions and understood the discharge instructions. Discharge instructions specifically effects, indications for sooner follow up or return to the emergency department, and the expected course of current diagnosis. Patient condition: Stable Discharge Plan Plan Patient Disposition: HOME (Self Care) Disposition Comment: Stable Prescriptions/Referrals Prescriptions/Med Rec: No Action tamsulosin 0.4 mg capsule 0.4 mg PO DAILY sulfamethoxazole-trimethoprim [Bactrim DS] 800-160 mg tablet 1 tab PO BID Qty: 14 0RF sulfamethoxazole-trimethoprim 800-160 mg tablet 1 tab PO BID Qty: 14 0RF acetaminophen 500 mg capsule 1,000 mg PO TID Qty: 30 0RF tamsulosin 0.4 mg capsule 0.4 mg PO QDAY Qty: 14 0RF cefdinir 300 mg capsule 300 mg PO BID Qty: 14 0RF fluconazole [Diflucan] 200 mg tablet 200 mg PO QDAY Qty: 7 0RF Problem List Clinical Impression: Corneal foreign body Patient/Caregiver Discharge Instructions Discharge Activity: activity as tolerated Education Materials: ED Corneal Foreign Body, Removed Additional Instructions: Thank you for the opportunity for serving you today. You are stable for discharged . You are advised to: Follow-up with your PCP in 1 to 2 days and as per referral to glazier artist for worsening of symptoms Return to ED for worsening of symptoms Increase oral fluids Continue Cortisporin eyedrops 1 drop every 6 hours for 5 days Print Language: Iranian Stand Alone Forms: Latoya Award Info., Patient Portal Info Letter ALPHONSO/CECILIA Supervising Physician WERNER Supervising Physician: MD Jennifer
[2024-05-13] MEDS: NEO/POLY/HC (Cortisporin) OP SUSP 7.5 ML BTL LEFT EYE (14:07)
== END 2024-05-13 14:24 | disposition home or self-care (01) ==
LOC: SERX 14:25
PROVIDERS: Emergency Provider Emergency Medicine
DX: T15.02XA Foreign body in cornea, left eye, initial encounter (principal); W44.8XXA Other foreign body entering into or through a natural orifice, initial encounter; Y93.89 Activity, other specified
CPT/HCPCS: 65220; 99283

== ENCOUNTER 2024-05-24 10:45 | Emergency (ER) | payer MEDICAID, SELFPAY ==
[2024-05-24] MEDS: LIDOCAINE JELLY 2% (Urojet) 10 ML TUBE TOP (11:00)
--- NOTE | 2024-05-24 11:02 | PD.EDMALE ---
ED Male Genitalurinary RME/HPI General Chief complaint: Urogenital-Male Stated complaint: NEEDS SAINI CHANGED Time Seen by Provider: 05/24/24 10:47 Arrival date/time: 05/24/24 10:45 63-year-old male well-known to me presents emergency department today requesting Saini catheter change patient presents the emergency department today multiple times for this Limitations: no limitations Related Data Home Medications ?Medication ?Instructions ?Recorded ?Confirmed tamsulosin 0.4 mg capsule 0.4 mg PO DAILY 01/19/21 07/02/21 Previous Rx's ?Medication ?Instructions ?Recorded sulfamethoxazole 800 1 tab PO BID #14 tabs 04/04/23 mg-trimethoprim 160 mg tablet acetaminophen 500 mg capsule 1,000 mg (2 x 500 mg) PO TID #30 04/23/23 caps tamsulosin 0.4 mg capsule 0.4 mg PO QDAY #14 caps 11/01/23 sulfamethoxazole 800 1 tab PO BID #14 tabs 12/28/23 mg-trimethoprim 160 mg tablet (Bactrim DS) cefdinir 300 mg capsule 300 mg PO BID #14 caps 02/22/24 fluconazole 200 mg tablet 200 mg PO QDAY #7 tabs 02/22/24 (Diflucan) Allergies Allergy/AdvReac Type Severity Reaction Status Date / Time No Known Allergies Allergy Verified 05/13/24 13:17 Review of Systems Review of Systems Systems Reviewed: All systems reviewed, normal except as documented Constitutional Constitutional: Reports system reviewed and no additional complaints, except as documented, Denies fever(s) and Denies headache(s) Eyes Eyes: Reports system reviewed and no additional complaints, except as documented and Denies blurry vision ENT Ears, Nose, Mouth, and Throat: Reports system reviewed and no additional complaints, except as documented, Denies headache(s), Denies nasal congestion and Denies nasal discharge Cardiovascular Cardiovascular: Reports system reviewed and no additional complaints, except as documented, Denies chest pain and Denies dyspnea Respiratory Respiratory: Reports system reviewed and no additional complaints, except as documented, Denies chest congestion, Denies cough and Denies dyspnea Gastrointestinal Gastrointestinal: Reports system reviewed and no additional complaints, except as documented and Denies abdominal pain Genitourinary Genitourinary: Reports system reviewed and no additional complaints, except as documented and Reports other (Saini catheter in place ) Integumentary/Breasts Skin/Breast: Reports system reviewed and no additional complaints, except as documented and Denies rash Neurologic Neurologic: Reports system reviewed and no additional complaints, except as documented, Reports as per HPI and Denies headache(s) Past Medical History Past Medical History NEUROLOGIC: Negative Neurological Disorders or Seizures CARDIAC: Negative Cardiac Disorders or Congestive Heart Failure RESPIRATORY: Negative Chronic Obstructive Pulmonary Disease (COPD) or Asthma GENITOURINARY: Positive Genitourinary Disorders, Kidney Stones and Benign Prostatic Hyperplasia; Negative Renal Disease MUSCULOSKELETAL: Positive Musculoskeletal Disorders and Degenerative Joint Disease ENDOCRINE: Negative Diabetes Mellitus Type 1 or Diabetes Mellitus Type 2 HEMATOLOGIC: Negative Sickle Cell Disease OTHER HISTORY: Negative Blood Transfusions, Blood Transfusion Reaction or Anesthesia Reactions Social History SMOKING STATUS: Light (< 1 pack/day) SUBSTANCE USE: does not use ED Exam General Limitations: Present no limitations General appearance: Present alert and in no apparent distress Head Head exam: Present atraumatic, normocephalic and normal inspection Eye Eye exam: Present normal appearance, PERRL and EOMI; Absent conjunctival injection ENT ENT exam: Present normal exam, normal oropharynx and mucous membranes moist Neck Neck exam: Present normal inspection, full ROM and trachea midline Chest Chest inspection: Present normal inspection and symmetric chest wall rise Respiratory Respiratory exam: Present normal lung sounds bilaterally; Absent respiratory distress, wheezes, stridor, accessory muscle use or prolonged expiratory phase Cardiovascular Cardiovascular exam: Present regular rate, normal rhythm and normal heart sounds Abdominal Exam Abdominal exam: Present soft and normal bowel sounds; Absent distention, tenderness, guarding, rebound or rigidity Extremities Exam Extremities exam: Present normal inspection and full ROM Back Exam Back exam: Present normal inspection and full ROM Neurological Exam Neurological exam: Present alert, oriented X3 and CN II-XII intact Psychiatric Psychiatric exam: Present normal affect and normal mood Skin Skin exam: Present warm, dry, intact and normal color Course Quality Measures none Orders Category Date Time Status Saini [Urinary Catheter] NOW Care 05/24/24 10:48 Active Lidocaine Jelly 2% Urojet [Xylocaine Jelly 2% Urojet] Med 05/24/24 10:48 Discontinued See Dose Instructions TOP X1 ONE Vital Signs Vital signs: O2 saturation 98% room air within normal limits Urogenital - Male MDM Narrative MDM Narrative:: 63-year-old male well-known to me presents emergency department today requesting Saini catheter change patient presents the emergency department today multiple times for this On exam patient well-appearing patient does not appear ill or toxic in no acute distress Saini catheter replaced patient tolerated well patient pleased with the care Patient discharged home in no distress to follow-up with primary care doctor in the next 24 to 48 hours and for any worsening symptoms to return to the ER immediately Patient data External records reviewed:: [facility] previous records Clinical information provided by:: patient Social determinants that could affect healthcare access:: none Patient has the following chronic illnesses:: See history How is presenting disease/condition affected by chronic disease/condition?: caused by Evaluation data The following diagnostics were reviewed and interpreted by me:: other (specify) (N/A) Lab and/or radiology exams considered but not ordered:: Consider not ordered Interpretation Summary: N/A Medications / Prescriptions Medications or Prescriptions considered but not ordered:: Given Medication administrations:: Medication Administration History Discontinued Medications Lidocaine HCl (Lidocaine Jelly 2% (Urojet) 10 Ml Tube) 0 ml TOP X1 ONE Stop: 05/24/24 10:49 Last Admin: 05/24/24 11:00 Dose: 10 ml Documented By: JETHRO Given Consultations Consultation(s) initiated? (list below): No Diagnosis Urogenital Male Differential Diagnosis: urinary tract infection Most likely diagnosis given after review of the tests above:: Acute on chronic urinary retention, Saini catheter problem Admission Indicated Admission indicated?: not indicated Admission Request Was there a request for admission?: No Disposition Plan Disposition Plan: Discharge Discharge Attestation Discharge Attestation: The patient and all family members were given an opportunity to ask questions and understood the discharge instructions. Discharge instructions specifically effects, indications for sooner follow up or return to the emergency department, and the expected course of current diagnosis. Patient condition: Stable Discharge Plan Plan Patient Disposition: HOME (Self Care) Disposition Comment: Stable Prescriptions/Referrals Prescriptions/Med Rec: No Action tamsulosin 0.4 mg capsule 0.4 mg PO DAILY sulfamethoxazole-trimethoprim [Bactrim DS] 800-160 mg tablet 1 tab PO BID Qty: 14 0RF sulfamethoxazole-trimethoprim 800-160 mg tablet 1 tab PO BID Qty: 14 0RF acetaminophen 500 mg capsule 1,000 mg PO TID Qty: 30 0RF tamsulosin 0.4 mg capsule 0.4 mg PO QDAY Qty: 14 0RF cefdinir 300 mg capsule 300 mg PO BID Qty: 14 0RF fluconazole [Diflucan] 200 mg tablet 200 mg PO QDAY Qty: 7 0RF Problem List Clinical Impression: Acute on chronic urinary retention, Saini catheter problem Patient/Caregiver Discharge Instructions Education Materials: ED Saini Catheter, Care Additional Instructions: Please follow up with your primary care doctor in the next 24-48hrs for any worsening symptoms return here immediately Print Language: Slovak Stand Alone Forms: Latoya Award Info., Patient Portal Info Letter PA/[employer] N[employer]ITION SCIENTIST Supervising Physician PA/[employer] N[employer]ITION SCIENTIST Supervising Physician: Dr noel
== END 2024-05-24 11:08 | disposition home or self-care (01) ==
LOC: SERX 11:10
PROVIDERS: Emergency Provider Internal Medicine Cardiovascular Disease; PCP Family Medicine
DX: R33.8 Other retention of urine (principal)
CPT/HCPCS: 51702; 99283

== ENCOUNTER 2024-06-02 02:55 | Emergency (ER) | payer MEDICAID, SELFPAY ==
[2024-06-02 02:58] VITALS: BP 156/104; PULSE 92; RESP 19; TEMP 36.7; O2SAT 98
--- NOTE | 2024-06-02 03:04 | PD.EDMALE ---
ED Male Genitalurinary RME/HPI General Chief complaint: Urogenital-Male Stated complaint: SAINI PROBLEM Time Seen by Provider: 06/02/24 03:00 Arrival date/time: 06/02/24 02:55 RME / HPI RME / HPI Narrative: This section includes all my notes and documentations, including HPI, PE, and ED course. Naun Alexandra MD HPI: 63yo male with a history of BPH, indwelling saini catheter presents to the ED for a chief complaint of lower abdominal and groin cramping. Patient states his saini catheter was last changed 2 weeks ago, reporting he initially wasn't taking his antibiotics for UTI but he is now. He states he has developed lower abdominal and groin cramping, reporting it's been progressively getting worse, so he came in for evaluation. He states his catheter is draining. He denies any fever, chills or any other associated symptoms. No other complaints reported. ROS: All negative except as documented in HPI. Physical Exam: General: Alert and oriented. No acute distress when remaining still. Eyes: Conjunctivae and lids clear. ENT: No nasal congestion. Neck: Supple. Heart: RRR. Lungs: No respiratory distress. Good air movement. No rhonchi, wheezing, rales. Abdomen: Soft and nontender. Legs: No clubbing, cyanosis, edema. Skin: Warm and dry. Neuro: Alert and oriented X 3. I reviewed all diagnostic test results. My review of the abdominal CT report is constipation and UTI. UA showed leukocyte esterase, RBC, WBC, and bacteria. At this point, diagnoses include constipation and UTI. I ordered oral cefdinir. Recommended a trial of outpatient treatment. Based on my best medical judgment, made decision no further evaluation or treatment indicated at this time. Patient understands and agrees to the discharge instructions customized and printed, see below. Discharge instructions from Dr. Alexandra printed for you: ?After evaluation, you have severe constipation. ?Take Senokot S (not plain Senokot, OTC so prescription not needed), four pills, at bedtime as needed. And milk of magnesia as prescribed. May take a few days but this will help clear out your bowels. ?To help current constipation and prevent future constipation, increase oral fluid because dehydration cause severe constipation. Maintain clear urine. If dark or yellow, increase oral fluid. ?And every day, increase fresh fruits and fresh vegetables and physical exercise. --Take cefdinir to kill the germs causing your UTI. ?See a private doctor on 06/05/2024 for recheck and further care. Ask to check the final urine culture results from today to make sure cefdinir doesn't need to be changed due to resistance. To make sure there is no serious intra-abdominal condition, ask for help with more investigation not available here in the ER. Such as EGD or scoping the stomach, colonoscopy or scoping the colon, and referral to see manager marketing sales. ?Seek immediate medical care with worsening or with any concerns. Naun Alexandra MD Related Data Home Medications ?Medication ?Instructions ?Recorded ?Confirmed tamsulosin 0.4 mg capsule 0.4 mg PO DAILY 01/19/21 07/02/21 Previous Rx's ?Medication ?Instructions ?Recorded sulfamethoxazole 800 1 tab PO BID #14 tabs 04/04/23 mg-trimethoprim 160 mg tablet acetaminophen 500 mg capsule 1,000 mg (2 x 500 mg) PO TID #30 04/23/23 caps tamsulosin 0.4 mg capsule 0.4 mg PO QDAY #14 caps 11/01/23 sulfamethoxazole 800 1 tab PO BID #14 tabs 12/28/23 mg-trimethoprim 160 mg tablet (Bactrim DS) cefdinir 300 mg capsule 300 mg PO BID #14 caps 02/22/24 fluconazole 200 mg tablet 200 mg PO QDAY #7 tabs 02/22/24 (Diflucan) cefdinir 300 mg capsule 300 mg PO BID #14 caps 06/02/24 magnesium hydroxide 2,400 mg/10 mL 30 ml PO QDAY PRN constipation #60 06/02/24 oral suspension (Milk Of Magnesia mL Concentrated) sennosides 8.6 mg-docusate sodium 4 tab-cap (4 x 8.6-50 mg) PO QDAY 06/02/24 50 mg tablet (Senokot-S) PRN constipation #20 tabs Allergies Allergy/AdvReac Type Severity Reaction Status Date / Time No Known Allergies Allergy Verified 06/02/24 02:57 Review of Systems Review of Systems Systems Reviewed: All systems reviewed, normal except as documented Past Medical History Past Medical History NEUROLOGIC: Negative Neurological Disorders or Seizures CARDIAC: Negative Cardiac Disorders or Congestive Heart Failure RESPIRATORY: Negative Chronic Obstructive Pulmonary Disease (COPD) or Asthma GENITOURINARY: Positive Genitourinary Disorders, Kidney Stones and Benign Prostatic Hyperplasia; Negative Renal Disease MUSCULOSKELETAL: Positive Musculoskeletal Disorders and Degenerative Joint Disease ENDOCRINE: Negative Diabetes Mellitus Type 1 or Diabetes Mellitus Type 2 HEMATOLOGIC: Negative Sickle Cell Disease OTHER HISTORY: Negative Blood Transfusions, Blood Transfusion Reaction or Anesthesia Reactions Social History SMOKING STATUS: Current every day smoker SUBSTANCE USE: does not use ED Exam Narrative Physical exam: As noted in HPI. Course Quality Measures none Orders Category Date Time Status Saini [Urinary Catheter] QS Care 06/02/24 03:10 Completed Saini to Leg Bag Routine Care 06/02/24 03:[address] abdomen pelvis wo con Stat Exams 06/02/24 03:17 Completed UA, C/S IF [Urinalysis, C/S if Indicated] Stat Lab 06/02/24 03:45 Completed Urine Culture Stat Lab 06/02/24 03:45 Received Cefdinir [Omnicef] Med 06/02/24 05:48 Discontinued 250 mg PO X1 ONE Lidocaine Jelly 2% Urojet [Xylocaine Jelly 2% Urojet] Med 06/02/24 03:09 Discontinued See Dose Instructions TOP X1 ONE Vital Signs Vital signs: Vital Signs Temperature 98.0 F 06/02/24 02:58 Pulse Rate 92 06/02/24 02:58 Respiratory Rate 19 06/02/24 02:58 Blood Pressure 156/104 H 06/02/24 02:58 Pulse Oximetry (%) 98 06/02/24 02:58 Oxygen Delivery Method Room Air 06/02/24 02:58 Urogenital - Male MDM Narrative MDM Narrative:: Scribe Attestation: 06/02/24 Hayley Cuenca am scribing for and in the presence of Dr. Alexandra. Patient data External records reviewed:: [facility] previous records (Per chart review, patient was seen here on 05/24/24 for acute on chronic urinary retention.) Clinical information provided by:: patient Social determinants that could affect healthcare access:: none Patient has the following chronic illnesses:: BPH, indwelling saini catheter How is presenting disease/condition affected by chronic disease/condition?: caused by Evaluation data The following diagnostics were reviewed and interpreted by me:: lab results and radiology exam(s) Lab and/or radiology exams considered but not ordered:: none Interpretation Summary: Constipation, UTI Medications / Prescriptions Medications or Prescriptions considered but not ordered:: none Medication administrations:: Medication Administration History Discontinued Medications Cefdinir (Cefdinir 250 Mg/5 Ml Ml) 250 mg PO X1 ONE Stop: 06/02/24 05:49 Last Admin: 06/02/24 06:05 Dose: Not Given Documented By: MESSI Non-Admin Reason: Discontinued Lidocaine HCl (Lidocaine Jelly 2% (Urojet) 10 Ml Tube) 0 ml TOP X1 ONE Stop: 06/02/24 03:10 Last Admin: 06/02/24 03:44 Dose: 10 ml Documented By: MESSI I ordered oral cefdinir Consultations Consultation(s) initiated? (list below): No Diagnosis Urogenital Male Differential Diagnosis: urinary tract infection, urethritis, acute retention of urine and other (Pyelonephritis, ureteral stone, constipation, SBO) Most likely diagnosis given after review of the tests above:: constipation, UTI Admission Indicated Admission indicated?: not indicated Explain why admission is indicated or not indicated:: No criteria for admission. Admission Request Was there a request for admission?: No Disposition Plan Disposition Plan: Discharge Discharge Attestation Discharge Attestation: The patient and all family members were given an opportunity to ask questions and understood the discharge instructions. Discharge instructions specifically effects, indications for sooner follow up or return to the emergency department, and the expected course of current diagnosis. Patient condition: Stable Discharge Plan Plan Patient Disposition: HOME (Self Care) Prescriptions/Referrals Prescriptions/Med Rec: New sennosides-docusate sodium [Senokot-S] 8.6-50 mg tablet 4 tab-cap PO QDAY PRN (Reason: constipation) Qty: 20 0RF cefdinir 300 mg capsule 300 mg PO BID Qty: 14 0RF magnesium hydroxide [Milk Of Magnesia Concentrated] 2,400 mg/10 mL suspension 30 ml PO QDAY PRN (Reason: constipation) Qty: 60 0RF No Action tamsulosin 0.4 mg capsule 0.4 mg PO DAILY sulfamethoxazole-trimethoprim [Bactrim DS] 800-160 mg tablet 1 tab PO BID Qty: 14 0RF sulfamethoxazole-trimethoprim 800-160 mg tablet 1 tab PO BID Qty: 14 0RF acetaminophen 500 mg capsule 1,000 mg PO TID Qty: 30 0RF tamsulosin 0.4 mg capsule 0.4 mg PO QDAY Qty: 14 0RF cefdinir 300 mg capsule 300 mg PO BID Qty: 14 0RF fluconazole [Diflucan] 200 mg tablet 200 mg PO QDAY Qty: 7 0RF Referrals: Parminder Lyles MD [Primary Care Provider] - In 1 week Problem List Clinical Impression: Constipation, UTI (urinary tract infection) Patient/Caregiver Discharge Instructions Discharge Activity: activity as tolerated Education Materials: ED Constipation (Adult), ED Urinary Tract Infections in Men Additional Instructions: Discharge instructions from Dr. Alexandra printed for you: ?After evaluation, you have severe constipation. ?Take Senokot S (not plain Senokot, OTC so prescription not needed), four pills, at bedtime as needed.? And milk of magnesia as prescribed. May take a few days but this will help clear out your bowels. ?To help current constipation and prevent future constipation, increase oral fluid because dehydration cause severe constipation.? Maintain clear urine.? If dark or yellow, increase oral fluid. ?And every day, increase fresh fruits and fresh vegetables and physical exercise. --Take cefdinir to kill the germs causing your UTI. ?See a private doctor on 06/05/2024 for recheck and further care. Ask to check the final urine culture results from today to make sure cefdinir doesn't need to be changed due to resistance. To make sure there is no serious intra-abdominal condition, ask for help with more investigation not available here in the ER. Such as EGD or scoping the stomach, colonoscopy or scoping the colon, and referral to see manager marketing sales. ?Seek immediate medical care with worsening or with any concerns. Print Language: Armenian Stand Alone Forms: Latoya Award Info., Patient Portal Info Letter
--- NOTE | 2024-06-02 03:17 | XR_ITS ---
Examination: CT abdomen and pelvis without contrast. Coronal 3-D reconstructions. Sagittal 2-D reconstructions. Date and time of exam:June 02, 2024 1536 hrs. Indications: Abdominal pain today, nonfunctioning urinary Melgar catheter CTDI: vol (mGy): 5.92 DLP: (mGycm): 325 Technique: Axial images of the abdomen have been obtained, 3 mm slice thickness Intravenous contrast material has not been administered. Low dose protocols were performed. One or more of the following dose reduction techniques were used; automated exposure control, adjustment of the mA and/or KV according to patient size, use of iterative reconstruction technique. Findings: No focal liver or splenic lesions No gallstones No pancreatic mass Mild left hydronephrosis, consider urinary tract infection Multiple very large bladder calculi including 3.8 and 2.8 cm Normal appendix No diverticulitis Urinary bladder wall is thickened Small fat-containing right inguinal hernia Lumbar L2-L4 with satisfactory alignment Impression: Mild left hydronephrosis, consider urinary tract infection Multiple large bladder calculi Thickening bladder wall, cystitis pattern
[2024-06-02] MEDS: LIDOCAINE JELLY 2% (Urojet) 10 ML TUBE TOP (03:44)
[2024-06-02 03:53] LABS: Collection Type, Urine Clean Catch
[2024-06-02 04:18] LABS: Bacteria,Urine 2+; Bilirubin,Urine Negative (Negative); Blood,Urine 2+ (Negative); Glucose, Urine Negative (Negative); Ketones,Urine Negative (Negative); Leukocyte Esterase,Urine Positive (Negative); Nitrite,Urine Positive (Negative); Protein,Urine 2+ (Neg - Trace); RBC,Urine 404 /hpf (0-3); Specific Gravity,Urine 1.019 (1.001-1.035); Squamous Epithelial Cell,Urine 2 /hpf (0-5); Urobilinogen,Urine Negative mg/dL (0.0-1.0); WBC,Urine 1623 /hpf (0-5)
[2024-06-02 04:27] LABS: Clarity,Urine Turbid (Clear/Hazy); Color,Urine Lt Orange (Lt Yel-Yel); Culture Indicated,Urine Yes
--- NOTE | 2024-06-02 05:33 | PRELIM_ITS ---
CT scan of the abdomen and pelvis without intravenous contrast (axial sections with sagittal and coronal reformats) June 02, 2024 at 0336 hours Clinical History: Abdominal pain. Comparison: Compared with the prior study dated August 12, 2020. Findings: Bibasilar streaky atelectasis is present. The liver,gallbladder, pancreas, spleen, right kidney and adrenals are unremarkableon this noncontrast study. There is mild hydroureteronephrosis on the left. No obstructing ureteric calculus. There is thickening versus underdistention of the stomach with mild perigastric fat stranding. No evidence of bowel obstruction. A large amount of fecal material is present in the colon. The appendix is within normal limits. There is no mesenteric or retroperitoneal adenopathy. A Melgar catheter is seen in the urinary bladder. Large bladder calculi are noted, measuring up to 3.3 cm.The urinary bladder is incompletely distended at the time of the examination and appears mildly thick walled.There is no free fluid or free air. There is developmental fusion of the left 1st and 2nd ribs. There is spinal fusion at L2 through L4 with a metallic spacer device, also seen on the prior examination. Degenerative changes are identified in the spine. Impression: 1. Mild hydroureteronephrosis on the left. No obstructing ureteric calculus. 2. Large bladder calculi. 3. Question of cystitis. 4. Severe constipation. Report Electronically Signed By: Paulie Hernandez 06/02/2024 5:32:07 AM [EST]
[2024-06-02 05:50] VITALS: BP 154/92; PULSE 88; RESP 18; TEMP 36.7; O2SAT 97
--- NOTE | 2024-06-02 06:06 | PC.NURSE ---
antibiotic ordered is not in stock. MD aware and med not given. Pt instructed to fill script this am and start then. Pt given leg bag for cath.. pt states feels much better. 300cc urine out of cath .
== END 2024-06-02 06:11 | disposition home or self-care (01) ==
PROVIDERS: Emergency Provider Emergency Medicine; PCP Family Medicine
DX: K59.00 Constipation, unspecified (principal); N39.0 Urinary tract infection, site not specified; Z46.6 Encounter for fitting and adjustment of urinary device; N40.0 Benign prostatic hyperplasia without lower urinary tract symptoms; F17.210 Nicotine dependence, cigarettes, uncomplicated
CPT/HCPCS: 51702; 74176; 81001; 87077; 87086; 87186; 99284; A9270

== ENCOUNTER 2024-06-23 20:23 | Emergency (ER) | payer MEDICAID, SELFPAY ==
[2024-06-23 20:23] VITALS: BMI 24.3
[2024-06-23 20:50] VITALS: BP 162/90; PULSE 84; RESP 18; TEMP 36.8; O2SAT 96
[2024-06-23] MEDS: LIDOCAINE JELLY 2% (Urojet) 10 ML TUBE TOP (21:03)
--- NOTE | 2024-06-24 03:23 | PD.EDMALE ---
ED Male Genitalurinary RME/HPI General Chief complaint: Urogenital-Male Stated complaint: SIANI NEEDS CHANGED Time Seen by Provider: 06/23/24 20:55 Arrival date/time: 06/23/24 20:23 63M with history of BPH presents to ED for asking for Saini replacement. Patient is supposed to get soon. Limitations: no limitations Related Data Home Medications ?Medication ?Instructions ?Recorded ?Confirmed tamsulosin 0.4 mg capsule 0.4 mg PO DAILY 01/19/21 07/02/21 Previous Rx's ?Medication ?Instructions ?Recorded sulfamethoxazole 800 1 tab PO BID #14 tabs 04/04/23 mg-trimethoprim 160 mg tablet acetaminophen 500 mg capsule 1,000 mg (2 x 500 mg) PO TID #30 04/23/23 caps tamsulosin 0.4 mg capsule 0.4 mg PO QDAY #14 caps 11/01/23 sulfamethoxazole 800 1 tab PO BID #14 tabs 12/28/23 mg-trimethoprim 160 mg tablet (Bactrim DS) cefdinir 300 mg capsule 300 mg PO BID #14 caps 02/22/24 fluconazole 200 mg tablet 200 mg PO QDAY #7 tabs 02/22/24 (Diflucan) cefdinir 300 mg capsule 300 mg PO BID #14 caps 06/02/24 magnesium hydroxide 2,400 mg/10 mL 30 ml PO QDAY PRN constipation #60 06/02/24 oral suspension (Milk Of Magnesia mL Concentrated) sennosides 8.6 mg-docusate sodium 4 tab-cap (4 x 8.6-50 mg) PO QDAY 06/02/24 50 mg tablet (Senokot-S) PRN constipation #20 tabs Allergies Allergy/AdvReac Type Severity Reaction Status Date / Time No Known Allergies Allergy Verified 06/02/24 02:57 Review of Systems Review of Systems Systems Reviewed: All systems reviewed, normal except as documented Constitutional Constitutional: Reports system reviewed and no additional complaints, except as documented, Denies fever(s) and Denies headache(s) ENT Ears, Nose, Mouth, and Throat: Denies disequilibrium and Denies headache(s) Cardiovascular Cardiovascular: Reports system reviewed and no additional complaints, except as documented, Denies chest pain and Denies dyspnea Respiratory Respiratory: Reports system reviewed and no additional complaints, except as documented, Denies cough and Denies dyspnea Gastrointestinal Gastrointestinal: Reports system reviewed and no additional complaints, except as documented, Denies abdominal pain, Denies nausea and Denies vomiting Neurologic Neurologic: Reports system reviewed and no additional complaints, except as documented, Denies confusion, Denies disequilibrium and Denies headache(s) Psychiatric Psychiatric: Denies confusion Past Medical History Past Medical History NEUROLOGIC: Negative Neurological Disorders or Seizures CARDIAC: Negative Cardiac Disorders or Congestive Heart Failure RESPIRATORY: Negative Chronic Obstructive Pulmonary Disease (COPD) or Asthma GENITOURINARY: Positive Genitourinary Disorders, Kidney Stones and Benign Prostatic Hyperplasia; Negative Renal Disease MUSCULOSKELETAL: Positive Musculoskeletal Disorders and Degenerative Joint Disease ENDOCRINE: Negative Diabetes Mellitus Type 1 or Diabetes Mellitus Type 2 HEMATOLOGIC: Negative Sickle Cell Disease OTHER HISTORY: Negative Blood Transfusions, Blood Transfusion Reaction or Anesthesia Reactions Social History SMOKING STATUS: Current every day smoker SUBSTANCE USE: does not use ED Exam General Limitations: Present no limitations General appearance: Present alert and in no apparent distress Head Head exam: Present atraumatic Eye Eye exam: Present normal appearance, PERRL and EOMI ENT ENT exam: Present normal exam, normal oropharynx and mucous membranes moist Neck Neck exam: Present normal inspection, full ROM and trachea midline Chest Chest inspection: Present normal inspection and symmetric chest wall rise Respiratory Respiratory exam: Present normal lung sounds bilaterally Cardiovascular Cardiovascular exam: Present regular rate, normal rhythm and normal heart sounds Abdominal Exam Abdominal exam: Present soft and normal bowel sounds Extremities Exam Extremities exam: Present normal inspection and full ROM Back Exam Back exam: Present normal inspection and full ROM Neurological Exam Neurological exam: Present alert, oriented X3 and CN II-XII intact Psychiatric Psychiatric exam: Present normal affect and normal mood Skin Skin exam: Present warm, dry, intact and normal color Course Quality Measures none Orders Category Date Time Status Saini to Leg Bag Routine Care 06/23/24 20:56 Ordered In and Out Catheter X1 Care 06/23/24 20:55 Completed Lidocaine Jelly 2% Urojet [Xylocaine Jelly 2% Urojet] Med 06/23/24 20:55 Discontinued See Dose Instructions TOP X1 ONE Vital Signs Vital signs: Vital Signs Temperature 98.3 F 06/23/24 20:50 Pulse Rate 84 06/23/24 20:50 Respiratory Rate 18 06/23/24 20:50 Blood Pressure 162/90 H 06/23/24 20:50 Pulse Oximetry (%) 96 06/23/24 20:50 Oxygen Delivery Method Room Air 06/23/24 20:50 O2 at 96% on RA and WNLs Urogenital - Male MDM Narrative MDM Narrative:: 63M with history of BPH presents to ED for asking for Saini replacement. Patient is supposed to get soon. Physical exam reveals no ab tenderness. Patient is afebrile, calm, and alert. Patient Saini replaced. Urine flowed freely. Patient data External records reviewed:: [facility] previous records Clinical information provided by:: patient Social determinants that could affect healthcare access:: none Patient has the following chronic illnesses:: BPH How is presenting disease/condition affected by chronic disease/condition?: exacerbated by Evaluation data The following diagnostics were reviewed and interpreted by me:: other (specify) (none) Lab and/or radiology exams considered but not ordered:: not ordered Interpretation Summary: n/a Medications / Prescriptions Medications or Prescriptions considered but not ordered:: ordered Medication administrations:: Medication Administration History Discontinued Medications Lidocaine HCl (Lidocaine Jelly 2% (Urojet) 10 Ml Tube) 0 ml TOP X1 ONE Stop: 06/23/24 20:56 Last Admin: 06/23/24 21:03 Dose: 10 ml Documented By: MS above Consultations Consultation(s) initiated? (list below): No Diagnosis Urogenital Male Differential Diagnosis: urinary tract infection, priapism, urethritis, epididymitis, genital herpes simplex, prostatitis, acute retention of urine, inguinal hernia and other (Saini replacement) Most likely diagnosis given after review of the tests above:: Saini replacement Admission Indicated Admission indicated?: not indicated Admission Request Was there a request for admission?: No Disposition Plan Disposition Plan: Discharge Discharge Attestation Discharge Attestation: The patient and all family members were given an opportunity to ask questions and understood the discharge instructions. Discharge instructions specifically effects, indications for sooner follow up or return to the emergency department, and the expected course of current diagnosis. Patient condition: Stable Discharge Plan Plan Patient Disposition: HOME (Self Care) Disposition Comment: Stable Prescriptions/Referrals Prescriptions/Med Rec: No Action tamsulosin 0.4 mg capsule 0.4 mg PO DAILY sulfamethoxazole-trimethoprim [Bactrim DS] 800-160 mg tablet 1 tab PO BID Qty: 14 0RF sennosides-docusate sodium [Senokot-S] 8.6-50 mg tablet 4 tab-cap PO QDAY PRN (Reason: constipation) Qty: 20 0RF cefdinir 300 mg capsule 300 mg PO BID Qty: 14 0RF magnesium hydroxide [Milk Of Magnesia Concentrated] 2,400 mg/10 mL suspension 30 ml PO QDAY PRN (Reason: constipation) Qty: 60 0RF sulfamethoxazole-trimethoprim 800-160 mg tablet 1 tab PO BID Qty: 14 0RF acetaminophen 500 mg capsule 1,000 mg PO TID Qty: 30 0RF tamsulosin 0.4 mg capsule 0.4 mg PO QDAY Qty: 14 0RF cefdinir 300 mg capsule 300 mg PO BID Qty: 14 0RF fluconazole [Diflucan] 200 mg tablet 200 mg PO QDAY Qty: 7 0RF Problem List Clinical Impression: Encounter for Saini catheter replacement Patient/Caregiver Discharge Instructions Additional Instructions: Please follow-up with PCP within 24-48 hours and return immediately if symptoms worsen. Print Language: Belarusian Stand Alone Forms: Patient Portal Info Letter ALPHONSO/INTERACTIVE PRODUCER Supervising Physician ALPHONSO/CECILIA Supervising Physician: Dr. Kumar
== END 2024-06-23 21:25 | disposition home or self-care (01) ==
LOC: SERX 21:26
PROVIDERS: Emergency Provider Emergency Medicine
DX: Z46.6 Encounter for fitting and adjustment of urinary device (principal); N40.0 Benign prostatic hyperplasia without lower urinary tract symptoms
CPT/HCPCS: 51702; 99283

== ENCOUNTER 2024-06-26 12:14 | Emergency (ER) | payer MEDICAID, SELFPAY ==
[2024-06-26 12:14] VITALS: BMI 29.2
[2024-06-26 12:23] VITALS: BP 157/93; PULSE 94; RESP 18; TEMP 36.7; O2SAT 100
--- NOTE | 2024-06-26 12:23 | PD.EDADULT ---
ED General RME/HPI General Chief complaint: General Adult/Misc Complain Stated complaint: WANTS A SAINI BAG Time Seen by Provider: 06/26/24 12:16 Arrival date/time: 06/26/24 12:14 63-year-old male with medical history significant for Saini catheter and urinary retention presents stating that he needs a new Saini catheter bag reports of Saini catheter itself is working he just needs a bag replacement Limitations: no limitations Related Data Home Medications ?Medication ?Instructions ?Recorded ?Confirmed tamsulosin 0.4 mg capsule 0.4 mg PO DAILY 01/19/21 07/02/21 Previous Rx's ?Medication ?Instructions ?Recorded sulfamethoxazole 800 1 tab PO BID #14 tabs 04/04/23 mg-trimethoprim 160 mg tablet acetaminophen 500 mg capsule 1,000 mg (2 x 500 mg) PO TID #30 04/23/23 caps tamsulosin 0.4 mg capsule 0.4 mg PO QDAY #14 caps 11/01/23 sulfamethoxazole 800 1 tab PO BID #14 tabs 12/28/23 mg-trimethoprim 160 mg tablet (Bactrim DS) cefdinir 300 mg capsule 300 mg PO BID #14 caps 02/22/24 fluconazole 200 mg tablet 200 mg PO QDAY #7 tabs 02/22/24 (Diflucan) cefdinir 300 mg capsule 300 mg PO BID #14 caps 06/02/24 magnesium hydroxide 2,400 mg/10 mL 30 ml PO QDAY PRN constipation #60 06/02/24 oral suspension (Milk Of Magnesia mL Concentrated) sennosides 8.6 mg-docusate sodium 4 tab-cap (4 x 8.6-50 mg) PO QDAY 06/02/24 50 mg tablet (Senokot-S) PRN constipation #20 tabs Allergies Allergy/AdvReac Type Severity Reaction Status Date / Time No Known Allergies Allergy Verified 06/26/24 12:15 Review of Systems Review of Systems Systems Reviewed: All systems reviewed, normal except as documented Constitutional Constitutional: Reports system reviewed and no additional complaints, except as documented, Denies fever(s) and Denies headache(s) Eyes Eyes: Reports system reviewed and no additional complaints, except as documented and Denies blurry vision ENT Ears, Nose, Mouth, and Throat: Reports system reviewed and no additional complaints, except as documented, Denies headache(s), Denies nasal congestion and Denies nasal discharge Cardiovascular Cardiovascular: Reports system reviewed and no additional complaints, except as documented, Denies chest pain and Denies dyspnea Respiratory Respiratory: Reports system reviewed and no additional complaints, except as documented, Denies chest congestion, Denies cough and Denies dyspnea Gastrointestinal Gastrointestinal: Reports system reviewed and no additional complaints, except as documented and Denies abdominal pain Integumentary/Breasts Skin/Breast: Reports system reviewed and no additional complaints, except as documented and Denies rash Neurologic Neurologic: Reports system reviewed and no additional complaints, except as documented, Reports as per HPI and Denies headache(s) Past Medical History Past Medical History NEUROLOGIC: Negative Neurological Disorders or Seizures CARDIAC: Negative Cardiac Disorders or Congestive Heart Failure RESPIRATORY: Negative Chronic Obstructive Pulmonary Disease (COPD) or Asthma GENITOURINARY: Positive Genitourinary Disorders, Kidney Stones and Benign Prostatic Hyperplasia; Negative Renal Disease MUSCULOSKELETAL: Positive Musculoskeletal Disorders and Degenerative Joint Disease ENDOCRINE: Negative Diabetes Mellitus Type 1 or Diabetes Mellitus Type 2 HEMATOLOGIC: Negative Sickle Cell Disease OTHER HISTORY: Negative Blood Transfusions, Blood Transfusion Reaction or Anesthesia Reactions Social History SMOKING STATUS: Current every day smoker SUBSTANCE USE: does not use ED Exam General Limitations: Present no limitations General appearance: Present alert and in no apparent distress Head Head exam: Present atraumatic, normocephalic and normal inspection Eye Eye exam: Present normal appearance, PERRL and EOMI; Absent conjunctival injection ENT ENT exam: Present normal exam, normal oropharynx and mucous membranes moist Neck Neck exam: Present normal inspection, full ROM and trachea midline Chest Chest inspection: Present normal inspection and symmetric chest wall rise Respiratory Respiratory exam: Present normal lung sounds bilaterally Cardiovascular Cardiovascular exam: Present regular rate, normal rhythm and normal heart sounds Abdominal Exam Abdominal exam: Present soft and normal bowel sounds; Absent distention, tenderness, guarding, rebound or rigidity Extremities Exam Extremities exam: Present normal inspection and full ROM Back Exam Back exam: Present normal inspection and full ROM Neurological Exam Neurological exam: Present alert, oriented X3 and CN II-XII intact Psychiatric Psychiatric exam: Present normal affect and normal mood Skin Skin exam: Present warm, dry, intact and normal color; Absent rash Course Quality Measures none Vital Signs Vital signs: Vital Signs Temperature 98.0 F 06/26/24 12:23 Pulse Rate 94 06/26/24 12:23 Respiratory Rate 18 06/26/24 12:23 Blood Pressure 157/93 H 06/26/24 12:23 Pulse Oximetry (%) 100 06/26/24 12:23 Oxygen Delivery Method Room Air 06/26/24 12:23 O2 saturation 100% room air within the limits [facility] Patient data External records reviewed:: [facility] previous records Clinical information provided by:: patient Social determinants that could affect healthcare access:: none Patient has the following chronic illnesses:: History How is presenting disease/condition affected by chronic disease/condition?: caused by Evaluation data The following diagnostics were reviewed and interpreted by me:: other (specify) (N/A) Lab and/or radiology exams considered but not ordered:: N/A Interpretation Summary: Consider not ordered Medications Medications considered but not ordered:: Given no meds Medication administrations:: Given no meds Consultations Consultation(s) initiated? (list below): No Diagnosis Differential Diagnosis ED Complaint MDM: Urinary retention, Saini catheter problem Most likely diagnosis given after review of the tests above:: Saini catheter problem Admission Indicated Admission indicated?: not indicated Explain why admission is indicated or not indicated:: No criteria Admission Request Was there a request for admission?: No Disposition Plan Disposition Plan: Discharge Discharge Attestation Discharge Attestation: The patient and all family members were given an opportunity to ask questions and understood the discharge instructions. Discharge instructions specifically effects, indications for sooner follow up or return to the emergency department, and the expected course of current diagnosis. Patient condition: Stable Medical Decision Making [facility] Narrative [facility] Narrative: 63-year-old male with medical history significant for Saini catheter and urinary retention presents stating that he needs a new Saini catheter bag reports of Saini catheter itself is working he just needs a bag replacement Patient given a new Saini bag and discharged home Patient thankful for the care Patient discharged home in no distress to follow-up with primary care doctor in the next 24 to 48 hours and for any worsening symptoms to return to the ER immediately Differential Diagnosis Differential Diagnosis: Urinary retention, Saini catheter problem Medical Records Medical records reviewed: Yes I reviewed the patient's medical records. Discharge Plan Plan Patient Disposition: HOME (Self Care) Disposition Comment: Stable Prescriptions/Referrals Prescriptions/Med Rec: No Action tamsulosin 0.4 mg capsule 0.4 mg PO DAILY sulfamethoxazole-trimethoprim [Bactrim DS] 800-160 mg tablet 1 tab PO BID Qty: 14 0RF sennosides-docusate sodium [Senokot-S] 8.6-50 mg tablet 4 tab-cap PO QDAY PRN (Reason: constipation) Qty: 20 0RF cefdinir 300 mg capsule 300 mg PO BID Qty: 14 0RF magnesium hydroxide [Milk Of Magnesia Concentrated] 2,400 mg/10 mL suspension 30 ml PO QDAY PRN (Reason: constipation) Qty: 60 0RF sulfamethoxazole-trimethoprim 800-160 mg tablet 1 tab PO BID Qty: 14 0RF acetaminophen 500 mg capsule 1,000 mg PO TID Qty: 30 0RF tamsulosin 0.4 mg capsule 0.4 mg PO QDAY Qty: 14 0RF cefdinir 300 mg capsule 300 mg PO BID Qty: 14 0RF fluconazole [Diflucan] 200 mg tablet 200 mg PO QDAY Qty: 7 0RF Problem List Clinical Impression: Malfunction of Saini catheter Patient/Caregiver Discharge Instructions Additional Instructions: Please follow up with your primary care doctor in the next 24-48hrs for any worsening symptoms return here immediately Print Language: Guamanian Stand Alone Forms: Latoya Award Info., Patient Portal Info Letter PA/WOOD REPATCHER Supervising Physician PA/WOOD REPATCHER Supervising Physician: MAYNOR
== END 2024-06-26 12:40 | disposition home or self-care (01) ==
LOC: SERX 12:30
PROVIDERS: Emergency Provider Emergency Medicine; PCP Family Medicine
DX: T83.091A Other mechanical complication of indwelling urethral catheter, initial encounter (principal); R33.9 Retention of urine, unspecified; Y84.6 Urinary catheterization as the cause of abnormal reaction of the patient, or of later complication, without mention of misadventure at the time of the procedure
CPT/HCPCS: 99281; A9270

== ENCOUNTER 2024-06-30 21:32 | Emergency (ER) | payer MEDICAID, SELFPAY ==
[2024-06-30 21:32] VITALS: BMI 22.9
[2024-06-30 23:05] VITALS: BP 148/84; PULSE 87; RESP 20; TEMP 36.8; O2SAT 96
--- NOTE | 2024-07-01 00:50 | PC.NURSE ---
Went to see the patient and explain that I would be changing out his turner. When I left room to get the turner patient was seen leaving the room and walking out of ER
--- NOTE | 2024-07-01 01:01 | PD.EDMALE ---
ED Male Genitalurinary RME/HPI General Chief complaint: Urogenital-Male Stated complaint: Melgar problems Time Seen by Provider: 06/30/24 23:44 Arrival date/time: 06/30/24 21:32 63M with history of BPH presents to ED for asking for Melgar replacement. Limitations: no limitations Related Data Home Medications ?Medication ?Instructions ?Recorded ?Confirmed tamsulosin 0.4 mg capsule 0.4 mg PO DAILY 01/19/21 07/02/21 Previous Rx's ?Medication ?Instructions ?Recorded sulfamethoxazole 800 1 tab PO BID #14 tabs 04/04/23 mg-trimethoprim 160 mg tablet acetaminophen 500 mg capsule 1,000 mg (2 x 500 mg) PO TID #30 04/23/23 caps tamsulosin 0.4 mg capsule 0.4 mg PO QDAY #14 caps 11/01/23 sulfamethoxazole 800 1 tab PO BID #14 tabs 12/28/23 mg-trimethoprim 160 mg tablet (Bactrim DS) cefdinir 300 mg capsule 300 mg PO BID #14 caps 02/22/24 fluconazole 200 mg tablet 200 mg PO QDAY #7 tabs 02/22/24 (Diflucan) cefdinir 300 mg capsule 300 mg PO BID #14 caps 06/02/24 magnesium hydroxide 2,400 mg/10 mL 30 ml PO QDAY PRN constipation #60 06/02/24 oral suspension (Milk Of Magnesia mL Concentrated) sennosides 8.6 mg-docusate sodium 4 tab-cap (4 x 8.6-50 mg) PO QDAY 06/02/24 50 mg tablet (Senokot-S) PRN constipation #20 tabs Allergies Allergy/AdvReac Type Severity Reaction Status Date / Time No Known Allergies Allergy Verified 06/26/24 12:15 Review of Systems Review of Systems Systems Reviewed: All systems reviewed, normal except as documented Constitutional Constitutional: Reports system reviewed and no additional complaints, except as documented, Denies fever(s) and Denies headache(s) ENT Ears, Nose, Mouth, and Throat: Denies disequilibrium and Denies headache(s) Cardiovascular Cardiovascular: Reports system reviewed and no additional complaints, except as documented, Denies chest pain and Denies dyspnea Respiratory Respiratory: Reports system reviewed and no additional complaints, except as documented, Denies cough and Denies dyspnea Gastrointestinal Gastrointestinal: Reports system reviewed and no additional complaints, except as documented, Denies abdominal pain, Denies nausea and Denies vomiting Neurologic Neurologic: Reports system reviewed and no additional complaints, except as documented, Denies confusion, Denies disequilibrium and Denies headache(s) Psychiatric Psychiatric: Denies confusion Past Medical History Past Medical History NEUROLOGIC: Negative Neurological Disorders or Seizures CARDIAC: Negative Cardiac Disorders or Congestive Heart Failure RESPIRATORY: Negative Chronic Obstructive Pulmonary Disease (COPD) or Asthma GENITOURINARY: Positive Genitourinary Disorders, Kidney Stones and Benign Prostatic Hyperplasia; Negative Renal Disease MUSCULOSKELETAL: Positive Musculoskeletal Disorders and Degenerative Joint Disease ENDOCRINE: Negative Diabetes Mellitus Type 1 or Diabetes Mellitus Type 2 HEMATOLOGIC: Negative Sickle Cell Disease OTHER HISTORY: Negative Blood Transfusions, Blood Transfusion Reaction or Anesthesia Reactions Social History SMOKING STATUS: Current some day smoker SUBSTANCE USE: does not use ED Exam General Limitations: Present no limitations General appearance: Present alert and in no apparent distress Head Head exam: Present atraumatic Eye Eye exam: Present normal appearance, PERRL and EOMI ENT ENT exam: Present normal exam, normal oropharynx and mucous membranes moist Neck Neck exam: Present normal inspection, full ROM and trachea midline Chest Chest inspection: Present normal inspection and symmetric chest wall rise Respiratory Respiratory exam: Present normal lung sounds bilaterally Cardiovascular Cardiovascular exam: Present regular rate, normal rhythm and normal heart sounds Abdominal Exam Abdominal exam: Present soft and normal bowel sounds Extremities Exam Extremities exam: Present normal inspection and full ROM Back Exam Back exam: Present normal inspection and full ROM Neurological Exam Neurological exam: Present alert, oriented X3 and CN II-XII intact Psychiatric Psychiatric exam: Present normal affect and normal mood Skin Skin exam: Present warm, dry, intact and normal color Course Quality Measures none Orders Category Date Time Status Catheter [Urinary Catheter] QS Care 06/30/24 23:44 Active Melgar to Leg Bag Routine Care 06/30/24 23:44 Ordered Ketorolac Inj [Toradol Inj] Med 06/30/24 23:44 Discontinued 60 mg IM X1 ONE Lidocaine Jelly 2% Urojet [Xylocaine Jelly 2% Urojet] Med 06/30/24 23:45 Discontinued See Dose Instructions TOP X1 ONE Vital Signs Vital signs: Vital Signs Temperature 98.2 F 06/30/24 23:05 Pulse Rate 87 06/30/24 23:05 Respiratory Rate 20 06/30/24 23:05 Blood Pressure 148/84 H 06/30/24 23:05 Pulse Oximetry (%) 96 06/30/24 23:05 O2 at 96% on RA and WNLs Urogenital - Male MDM Narrative MDM Narrative:: 63M with history of BPH presents to ED for asking for Melgar replacement. Physical exam reveals no ab tenderness. Patient is afebrile, calm, and alert. Patient eloped. Patient data External records reviewed:: [facility] previous records Clinical information provided by:: patient Social determinants that could affect healthcare access:: none Patient has the following chronic illnesses:: BPH How is presenting disease/condition affected by chronic disease/condition?: no chronic disease Evaluation data The following diagnostics were reviewed and interpreted by me:: other (specify) (none) Lab and/or radiology exams considered but not ordered:: not ordered Interpretation Summary: n/a Medications / Prescriptions Medications or Prescriptions considered but not ordered:: ordered Medication administrations:: Medication Administration History Discontinued Medications Ketorolac Tromethamine (Ketorolac Inj 60 Mg/2 Ml Vial) 60 mg IM X1 ONE Stop: 06/30/24 23:45 Lidocaine HCl (Lidocaine Jelly 2% (Urojet) 10 Ml Tube) 0 ml TOP X1 ONE Stop: 06/30/24 23:46 patient eloped Consultations Consultation(s) initiated? (list below): No Diagnosis Urogenital Male Differential Diagnosis: urinary tract infection, priapism, urethritis, epididymitis, genital herpes simplex, prostatitis, acute retention of urine, inguinal hernia and other (Melgar replacement) Most likely diagnosis given after review of the tests above:: Melgar replacement Admission Indicated Admission indicated?: not indicated Admission Request Was there a request for admission?: No Disposition Plan Disposition Plan: other (specify) (eloped) Discharge Plan Plan Patient Disposition: Elopement Prescriptions/Referrals Prescriptions/Med Rec: No Action tamsulosin 0.4 mg capsule 0.4 mg PO DAILY sulfamethoxazole-trimethoprim [Bactrim DS] 800-160 mg tablet 1 tab PO BID Qty: 14 0RF sennosides-docusate sodium [Senokot-S] 8.6-50 mg tablet 4 tab-cap PO QDAY PRN (Reason: constipation) Qty: 20 0RF cefdinir 300 mg capsule 300 mg PO BID Qty: 14 0RF magnesium hydroxide [Milk Of Magnesia Concentrated] 2,400 mg/10 mL suspension 30 ml PO QDAY PRN (Reason: constipation) Qty: 60 0RF sulfamethoxazole-trimethoprim 800-160 mg tablet 1 tab PO BID Qty: 14 0RF acetaminophen 500 mg capsule 1,000 mg PO TID Qty: 30 0RF tamsulosin 0.4 mg capsule 0.4 mg PO QDAY Qty: 14 0RF cefdinir 300 mg capsule 300 mg PO BID Qty: 14 0RF fluconazole [Diflucan] 200 mg tablet 200 mg PO QDAY Qty: 7 0RF Problem List Clinical Impression: Encounter for Melgar catheter replacement Patient/Caregiver Discharge Instructions Print Language: Wolof Stand Alone Forms: Patient Portal Info Letter PA/[employer] Supervising Physician PA/[employer] Supervising Physician: Dr. Pavon
--- NOTE | 2024-07-01 01:54 | PC.NURSE ---
pt a/o x 4 was here to get turner cather changed out. Pt left before turner was placed and vitals were done
== END 2024-07-01 01:56 | disposition left against medical advice (07) ==
PROVIDERS: Emergency Provider Emergency Medicine; PCP Family Medicine
DX: Z46.6 Encounter for fitting and adjustment of urinary device (principal); N40.0 Benign prostatic hyperplasia without lower urinary tract symptoms
CPT/HCPCS: 99281

== ENCOUNTER 2024-07-17 12:56 | Emergency (ER) | payer MEDICAID, SELFPAY ==
[2024-07-17 13:45] VITALS: BP 146/82; PULSE 98; RESP 20; TEMP 36.6; O2SAT 98
--- NOTE | 2024-07-17 14:00 | PD.EDRME ---
Rapid Medical Screening Exam RME Arrival date/time: 07/17/24 12:56 Chief Complaint: General Adult/Misc Complain Time Seen by Provider: 07/17/24 13:53 Vital signs: Vital Signs Temperature 97.9 F 07/17/24 13:45 Pulse Rate 98 07/17/24 13:45 Respiratory Rate 20 07/17/24 13:45 Blood Pressure 146/82 H 07/17/24 13:45 Pulse Oximetry (%) 98 07/17/24 13:45 Oxygen Delivery Method Room Air 07/17/24 13:45 Vital signs reviewed by provider: Yes RME Narrative: 63-year-old male presents to the ED with complaint of significant pain in the right pelvis area for the past 2 days, as well as stating he needs his Melgar changed. Melgar was placed approximately 3 weeks ago for apparent kidney stones. He sees a urologist across the street named Jarrett . He denies fever or chills. I have greeted and performed a focused initial assessment of this patient. A comprehensive ED assessment and evaluation of the patient, analysis of all test results, and completion of the medical decision making process will be conducted by myself. New Melgar catheter ordered with Uro-Jet lidocaine and urinalysis ordered, but will patient was waiting in order for, he left without any further intervention. Further chart investigation reveals the patient has actually had the Melgar catheter since July 2020 and comes here on a regular basis for catheter changes. He was initially told to follow-up with Dr. Li, Urologist. Unlikely he is followed up with any urologist due to the frequent visits for Melgar catheter changes here in the ED. LWBS
--- NOTE | 2024-07-17 14:48 | PC.NURSE ---
Per staff patient eloped at approx 1430. Provider notified and aware.
--- NOTE | 2024-07-17 18:23 | PC.NURSE ---
notified provider and charge nurse at 1815 that patient wants to leave and does not want to wait for a bed in the main ED
== END 2024-07-17 14:49 | disposition left against medical advice (07) ==
LOC: SERX 14:32
PROVIDERS: Emergency Provider Family Medicine; PCP Family Medicine
DX: R10.2 Pelvic and perineal pain (principal); Z53.29 Procedure and treatment not carried out because of patient's decision for other reasons
CPT/HCPCS: 99281

== ENCOUNTER 2024-07-18 08:37 | Emergency (ER) | payer MEDICAID, SELFPAY ==
[2024-07-18 08:57] VITALS: BP 152/90; PULSE 95; RESP 19; TEMP 36.7; O2SAT 95
--- NOTE | 2024-07-18 09:02 | PD.EDADULT ---
ED General RME/HPI General Chief complaint: General Adult/Misc Complain Stated complaint: NEEDS SAINI CHANGED Time Seen by Provider: 07/18/24 09:02 Source: patient Arrival date/time: 07/18/24 08:37 63-year-old male with a history of BPH presents to the emergency room with a chief complaint of needing his Saini catheter changed. Mode of arrival: ambulatory Limitations: no limitations Related Data Home Medications ?Medication ?Instructions ?Recorded ?Confirmed tamsulosin 0.4 mg capsule 0.4 mg PO DAILY 01/19/21 07/02/21 Previous Rx's ?Medication ?Instructions ?Recorded sulfamethoxazole 800 1 tab PO BID #14 tabs 04/04/23 mg-trimethoprim 160 mg tablet acetaminophen 500 mg capsule 1,000 mg (2 x 500 mg) PO TID #30 04/23/23 caps tamsulosin 0.4 mg capsule 0.4 mg PO QDAY #14 caps 11/01/23 sulfamethoxazole 800 1 tab PO BID #14 tabs 12/28/23 mg-trimethoprim 160 mg tablet (Bactrim DS) cefdinir 300 mg capsule 300 mg PO BID #14 caps 02/22/24 fluconazole 200 mg tablet 200 mg PO QDAY #7 tabs 02/22/24 (Diflucan) cefdinir 300 mg capsule 300 mg PO BID #14 caps 06/02/24 magnesium hydroxide 2,400 mg/10 mL 30 ml PO QDAY PRN constipation #60 06/02/24 oral suspension (Milk Of Magnesia mL Concentrated) sennosides 8.6 mg-docusate sodium 4 tab-cap (4 x 8.6-50 mg) PO QDAY 06/02/24 50 mg tablet (Senokot-S) PRN constipation #20 tabs Allergies Allergy/AdvReac Type Severity Reaction Status Date / Time No Known Allergies Allergy Verified 07/18/24 08:38 Review of Systems Review of Systems Systems Reviewed: All systems reviewed, normal except as documented Constitutional Constitutional: Reports system reviewed and no additional complaints, except as documented, Denies fatigue, Denies fever(s), Denies headache(s) and Denies weakness Eyes Eyes: Reports system reviewed and no additional complaints, except as documented, Denies blurry vision and Denies change in vision ENT Ears, Nose, Mouth, and Throat: Reports system reviewed and no additional complaints, except as documented, Denies otalgia, Denies headache(s), Denies nasal congestion, Denies throat swelling and Denies vertigo Cardiovascular Cardiovascular: Reports system reviewed and no additional complaints, except as documented, Denies chest pain, Denies dyspnea and Denies dyspnea on exertion Respiratory Respiratory: Reports system reviewed and no additional complaints, except as documented, Denies chest congestion, Denies cough, Denies dyspnea, Denies dyspnea on exertion and Denies wheezing Gastrointestinal Gastrointestinal: Reports system reviewed and no additional complaints, except as documented, Denies abdominal pain, Denies cramping, Denies nausea and Denies vomiting Genitourinary Genitourinary: Reports system reviewed and no additional complaints, except as documented, Denies dysuria and Denies hematuria Musculoskeletal Musculoskeletal: Reports system reviewed and no additional complaints, except as documented and Denies back pain Integumentary/Breasts Skin/Breast: Reports system reviewed and no additional complaints, except as documented and Denies wounds Neurologic Neurologic: Reports system reviewed and no additional complaints, except as documented, Denies confusion, Denies headache(s), Denies lack of coordination, Denies vertigo and Denies weakness Psychiatric Psychiatric: Reports system reviewed and no additional complaints, except as documented, Denies anxiety, Denies confusion, Denies depression, Denies paranoia, Denies suicidal ideation and Denies tactile hallucinations Endocrine Endocrine: Reports system reviewed and no additional complaints, except as documented and Denies fatigue Hematologic/Lymphatic Hematologic/Lymphatic: Reports system reviewed and no additional complaints, except as documented and Denies lymphadenopathy Allergic/Immunologic Allergic/Immunologic: Reports system reviewed and no additional complaints, except as documented, Denies throat swelling, Denies urticaria and Denies wheezing Past Medical History Past Medical History NEUROLOGIC: Negative Neurological Disorders or Seizures CARDIAC: Negative Cardiac Disorders or Congestive Heart Failure RESPIRATORY: Negative Chronic Obstructive Pulmonary Disease (COPD) or Asthma GENITOURINARY: Positive Genitourinary Disorders, Kidney Stones and Benign Prostatic Hyperplasia; Negative Renal Disease MUSCULOSKELETAL: Positive Musculoskeletal Disorders and Degenerative Joint Disease ENDOCRINE: Negative Diabetes Mellitus Type 1 or Diabetes Mellitus Type 2 HEMATOLOGIC: Negative Sickle Cell Disease OTHER HISTORY: Negative Blood Transfusions, Blood Transfusion Reaction or Anesthesia Reactions Social History SMOKING STATUS: Current every day smoker SUBSTANCE USE: does not use ED Exam General Limitations: Present no limitations General appearance: Present alert and in no apparent distress Head Head exam: Present atraumatic Eye Eye exam: Present normal appearance, PERRL and EOMI ENT ENT exam: Present normal exam, normal oropharynx and mucous membranes moist Neck Neck exam: Present normal inspection, full ROM and trachea midline Chest Chest inspection: Present normal inspection and symmetric chest wall rise Respiratory Respiratory exam: Present normal lung sounds bilaterally Cardiovascular Cardiovascular exam: Present regular rate, normal rhythm and normal heart sounds Abdominal Exam Abdominal exam: Present soft and normal bowel sounds Extremities Exam Extremities exam: Present normal inspection and full ROM Back Exam Back exam: Present normal inspection and full ROM Neurological Exam Neurological exam: Present alert, oriented X3 and CN II-XII intact Psychiatric Psychiatric exam: Present normal affect and normal mood Skin Skin exam: Present warm, dry, intact and normal color Course Quality Measures none Orders Category Date Time Status Saini [Urinary Catheter, Remove] ONCE Care 07/18/24 09:01 Completed Saini [Urinary Catheter] QS Care 07/18/24 09:01 Completed Saini to Leg Bag Routine Care 07/18/24 09:01 Ordered Lidocaine Jelly 2% Urojet [Xylocaine Jelly 2% Urojet] Med 07/18/24 09:01 Discontinued See Dose Instructions TOP X1 ONE Vital Signs Vital signs: Vital Signs Temperature 98.1 F 07/18/24 08:57 Pulse Rate 95 07/18/24 08:57 Respiratory Rate 19 07/18/24 08:57 Blood Pressure 152/90 H 07/18/24 08:57 Pulse Oximetry (%) 95 07/18/24 08:57 Oxygen Delivery Method Room Air 07/18/24 08:57 O2 saturation 95% within normal limits Discharge Plan Plan Patient Disposition: Elopement Disposition Comment: Stable Prescriptions/Referrals Prescriptions/Med Rec: No Action tamsulosin 0.4 mg capsule 0.4 mg PO DAILY sulfamethoxazole-trimethoprim [Bactrim DS] 800-160 mg tablet 1 tab PO BID Qty: 14 0RF sennosides-docusate sodium [Senokot-S] 8.6-50 mg tablet 4 tab-cap PO QDAY PRN (Reason: constipation) Qty: 20 0RF cefdinir 300 mg capsule 300 mg PO BID Qty: 14 0RF magnesium hydroxide [Milk Of Magnesia Concentrated] 2,400 mg/10 mL suspension 30 ml PO QDAY PRN (Reason: constipation) Qty: 60 0RF sulfamethoxazole-trimethoprim 800-160 mg tablet 1 tab PO BID Qty: 14 0RF acetaminophen 500 mg capsule 1,000 mg PO TID Qty: 30 0RF tamsulosin 0.4 mg capsule 0.4 mg PO QDAY Qty: 14 0RF cefdinir 300 mg capsule 300 mg PO BID Qty: 14 0RF fluconazole [Diflucan] 200 mg tablet 200 mg PO QDAY Qty: 7 0RF Referrals: Parminder Lyles MD [Primary Care Provider] - In 1 week Problem List Clinical Impression: Urinary catheter (Saini) change required Patient/Caregiver Discharge Instructions Print Language: Arabic MDM Patient Acuity Low Acuity (complete MDM as needed) Narrative: 63-year-old male with a history of BPH presents to the emergency room with a chief complaint of needing his Saini catheter changed Patient is hemodynamically stable and in no apparent distress The patient states he is only here for a Saini catheter change. Patient states he has an appointment with his urology the first week of next month. Patient told me that he would like to get his urine checked for any infection as he is having some dysuria. The patient did not leave a urine sample and patient eloped prior to final disposition Clinical Information Provided by: patient Medical Records reviewed None and EMS Meds/Rx considered, not ordered None Labs/Rad/Tests considered, not ordered None Chronic Illness/Social Conditions which may negatively complicate care or outcome(s)-explain: None or not applicable EKG EKG not done Labs Labs: none Imaging Imaging interpretation: none or see narrative above Medication Administration(s) Medication Administration History Discontinued Medications Lidocaine HCl (Lidocaine Jelly 2% (Urojet) 10 Ml Tube) 0 ml TOP X1 ONE Stop: 07/18/24 09:02 Last Admin: 07/18/24 09:12 Dose: 10 ml Documented By: ANNA Diagnosis Differential Diagnosis ED Complaint MDM: Saini catheter change/UTI
[2024-07-18] MEDS: LIDOCAINE JELLY 2% (Urojet) 10 ML TUBE TOP (09:12)
== END 2024-07-18 10:00 | disposition left against medical advice (07) ==
LOC: SERX 09:31
PROVIDERS: Emergency Provider Family Medicine; PCP Family Medicine
DX: Z46.6 Encounter for fitting and adjustment of urinary device (principal)
CPT/HCPCS: 81001; 99281

== ENCOUNTER 2024-07-19 10:37 | Emergency (ER) | payer MEDICAID, SELFPAY ==
[2024-07-19 11:17] VITALS: BP 137/89; PULSE 89; RESP 18; TEMP 36.9; O2SAT 97; BMI 22.9
--- NOTE | 2024-07-19 11:24 | XR_ITS ---
Examination: CT abdomen and pelvis without contrast. Coronal 3-D reconstructions. Sagittal 2-D reconstructions. Date and time of exam:July 18, 2024 1154 hours Comparison June 02, 2024 INDICATIONS: Right-sided flank pain with burning sensation with urination today CTDI: vol (mGy): 6.40 DLP: (mGycm): 364 Technique: Axial images of the abdomen have been obtained, 3 mm slice thickness Intravenous contrast material has not been administered. Low dose protocols were performed. One or more of the following dose reduction techniques were used; automated exposure control, adjustment of the mA and/or KV according to patient size, use of iterative reconstruction technique. Findings: No focal liver or splenic lesions No gallstones No pancreatic mass There is considerable patient motion on this study 2 mm calculus nonobstructing left kidney Minimal right perinephric stranding Abundant stool in the colon Normal appendix No bowel obstruction Multiple very large bladder calculi, including 35 mm, 30 mm, 27 mm, 24 mm with marked urinary bladder wall thickening Small fat-containing inguinal hernia Urinary Melgar catheter noted IMPRESSION: 2 mm nonobstructing left renal calculus Minimal right perinephric stranding consider right urinary tract infection, no hydronephrosis or ureteral calculi Multiple large bladder calculi Cystitis pattern
--- NOTE | 2024-07-19 11:24 | PD.EDRME ---
Rapid Medical Screening Exam RME Arrival date/time: 07/19/24 10:37 63-year-old male presents to the Emergency Department today for complaints of right flank pain patient does have indwelling catheter Chief Complaint: Urogenital-Male Time Seen by Provider: 07/19/24 11:07 Vital signs: Vital Signs Temperature 98.4 F 07/19/24 11:17 Pulse Rate 89 07/19/24 11:17 Respiratory Rate 18 07/19/24 11:17 Blood Pressure 137/89 H 07/19/24 11:17 Pulse Oximetry (%) 97 07/19/24 11:17 Oxygen Delivery Method Room Air 07/19/24 11:17
[2024-07-19] MEDS: HYDROcodone/APAP 5/325 TABLET 1 TAB PO (11:32)
[2024-07-19] MEDS: KETOROLAC INJ 30 MG/ML VIAL IM (11:32)
[2024-07-19 12:11] LABS: Bacteria,Urine 2+; Bilirubin,Urine Negative (Negative); Blood,Urine 2+ (Negative); Collection Type, Urine Clean Catch; Color,Urine Yellow (Lt Yel-Yel); Glucose, Urine Negative (Negative); Ketones,Urine Negative (Negative); Leukocyte Esterase,Urine Positive (Negative); Nitrite,Urine Positive (Negative); PH,Urine 6.5 (5.0-7.0); Protein,Urine 3+ (Neg - Trace); RBC,Urine 286 /hpf (0-3); Specific Gravity,Urine 1.024 (1.001-1.035); Squamous Epithelial Cell,Urine 0 /hpf (0-5); Urobilinogen,Urine Negative mg/dL (0.0-1.0); WBC,Urine 2243 /hpf (0-5)
[2024-07-19 12:18] LABS: Clarity,Urine Cloudy (Clear/Hazy); Culture Indicated,Urine Yes
[2024-07-19 12:49] LABS: Basophils % (Auto) 1 % (0-2.5); Eosinophils # (Auto) 0.3 Thou/mm3 (0.0-0.5); Eosinophils % (Auto) 3 % (0-10); Hematocrit 42.2 % (41.0-53.0); Hemoglobin 14.6 g/dL (13.5-16.0); Immature Granulocytes % (Auto) 0 % (0-0); Immature Granulocytes Auto 0.03 Thou/mm3 (0.00-0.00); Lymphocytes # (Auto) 1.5 Thou/mm3 (1.0-4.8); Lymphocytes % (Auto) 18 % (10-50); Mean Corpuscular HGB Conc 34.6 g/dl (31.0-37.0); Mean Corpuscular Hemoglobin 28.7 pg (25.0-35.0); Mean Corpuscular Volume 83 fL (80-100); Monocytes # (Auto) 0.7 Thou/mm3 (0.0-0.8); Monocytes % (Auto) 8 % (0-12); Neutrophils # (Auto) 6.1 Thou/mm3 (1.8-7.7); Neutrophils % (Auto) 70 % (37-80); Nucleated Red Blood Cell % 0 /100 WBC (0); Platelet Count 426 Thou/mm3 (140-440); RDW Standard Deviation 45.8 fL (35.1-43.9); Red Blood Count 5.08 Miln/mm3 (4.50-5.90); White Blood Count 8.7 Thou/mm3 (3.8-10.6)
[2024-07-19 13:11] LABS: Alanine Aminotransferase 20 U/L (10-49); Albumin, Serum 4.4 gm/dL (3.4-4.8); Albumin/Globulin Ratio 1.7 (1.2-2.2); Alkaline Phosphatase 89 U/L (46-116); Anion Gap 7 (7-16); Aspartate Amino Transferase 25 U/L (0-34); BUN/Creatinine Ratio 15 Ratio (12-20); Bilirubin,Total 0.3 mg/dL (0.3-1.2); Blood Urea Nitrogen 18 mg/dL (9-23); Calcium 9.7 mg/dL (8.3-10.6); Calcium (Corrected) 9.7 mg/dL (8.5-10.1); Carbon Dioxide 27.3 mMol/L (20.0-31.0); Chloride 106 mMol/L (98-107); Creatinine (Component) 1.2 mg/dL (0.6-1.3); Estimated Creatinine Clearance 66.4 mL/min (>60); Globulin 2.6 gm/dL (2.3-3.5); Glucose 109 mg/dL (74-106); Lipase 39 U/L (12-53); Osmolality,Calculated 282 (275-295); Potassium 4.7 mMol/L (3.4-5.1); Sodium 140 mMol/L (136-145); eGFR > 60 See Note
--- NOTE | 2024-07-19 16:43 | PC.NURSE ---
called patient from lobby/outside no answer at this time x1 at 0301
== END 2024-07-19 17:30 | disposition left against medical advice (07) ==
LOC: SERX 12:03
PROVIDERS: Nurse Practitioner Primary Care; Emergency Provider Emergency Medicine; PCP Family Medicine
DX: R10.9 Unspecified abdominal pain (principal); Z96.0 Presence of urogenital implants; Z53.29 Procedure and treatment not carried out because of patient's decision for other reasons
CPT/HCPCS: 36415; 74176; 80053; 81001; 83690; 85025; 87077; 87086; 87186; 96372; 99281; J1885; A9270

== ENCOUNTER 2024-07-26 23:06 | Emergency (ER) | payer MEDICAID, SELFPAY ==
[2024-07-26 23:07] VITALS: BMI 22.9
[2024-07-26 23:28] VITALS: BP 164/84; PULSE 94; RESP 16; TEMP 37; O2SAT 97
[2024-07-27] MEDS: LIDOCAINE JELLY 2% (Urojet) 10 ML TUBE TOP (01:04)
--- NOTE | 2024-07-27 03:00 | PD.EDMALE ---
ED Male Genitalurinary RME/HPI General Chief complaint: Urogenital-Male Stated complaint: SAINI CAME OUT Time Seen by Provider: 07/26/24 23:30 Arrival date/time: 07/26/24 23:06 63M with history of BPH and bladder/kidney stones presents to ED for asking for Saini replacement because his fell out. Patient is supposed to get surgery soon. Limitations: no limitations Related Data Home Medications ?Medication ?Instructions ?Recorded ?Confirmed tamsulosin 0.4 mg capsule 0.4 mg PO DAILY 01/19/21 07/02/21 Previous Rx's ?Medication ?Instructions ?Recorded sulfamethoxazole 800 1 tab PO BID #14 tabs 04/04/23 mg-trimethoprim 160 mg tablet acetaminophen 500 mg capsule 1,000 mg (2 x 500 mg) PO TID #30 04/23/23 caps tamsulosin 0.4 mg capsule 0.4 mg PO QDAY #14 caps 11/01/23 sulfamethoxazole 800 1 tab PO BID #14 tabs 12/28/23 mg-trimethoprim 160 mg tablet (Bactrim DS) cefdinir 300 mg capsule 300 mg PO BID #14 caps 02/22/24 fluconazole 200 mg tablet 200 mg PO QDAY #7 tabs 02/22/24 (Diflucan) cefdinir 300 mg capsule 300 mg PO BID #14 caps 06/02/24 magnesium hydroxide 2,400 mg/10 mL 30 ml PO QDAY PRN constipation #60 06/02/24 oral suspension (Milk Of Magnesia mL Concentrated) sennosides 8.6 mg-docusate sodium 4 tab-cap (4 x 8.6-50 mg) PO QDAY 06/02/24 50 mg tablet (Senokot-S) PRN constipation #20 tabs Allergies Allergy/AdvReac Type Severity Reaction Status Date / Time No Known Allergies Allergy Verified 07/19/24 10:40 Review of Systems Review of Systems Systems Reviewed: All systems reviewed, normal except as documented Constitutional Constitutional: Reports system reviewed and no additional complaints, except as documented, Denies fever(s) and Denies headache(s) ENT Ears, Nose, Mouth, and Throat: Denies disequilibrium and Denies headache(s) Cardiovascular Cardiovascular: Reports system reviewed and no additional complaints, except as documented, Denies chest pain and Denies dyspnea Respiratory Respiratory: Reports system reviewed and no additional complaints, except as documented, Denies cough and Denies dyspnea Gastrointestinal Gastrointestinal: Reports system reviewed and no additional complaints, except as documented, Denies abdominal pain, Denies nausea and Denies vomiting Genitourinary Genitourinary: Reports as per HPI and Reports difficulty urinating Neurologic Neurologic: Reports system reviewed and no additional complaints, except as documented, Denies confusion, Denies disequilibrium and Denies headache(s) Psychiatric Psychiatric: Denies confusion Past Medical History Past Medical History NEUROLOGIC: Negative Neurological Disorders or Seizures CARDIAC: Negative Cardiac Disorders or Congestive Heart Failure RESPIRATORY: Negative Chronic Obstructive Pulmonary Disease (COPD) or Asthma GENITOURINARY: Positive Genitourinary Disorders, Kidney Stones and Benign Prostatic Hyperplasia; Negative Renal Disease MUSCULOSKELETAL: Positive Musculoskeletal Disorders and Degenerative Joint Disease ENDOCRINE: Negative Diabetes Mellitus Type 1 or Diabetes Mellitus Type 2 HEMATOLOGIC: Negative Sickle Cell Disease OTHER HISTORY: Negative Blood Transfusions, Blood Transfusion Reaction or Anesthesia Reactions Social History SMOKING STATUS: Current every day smoker SUBSTANCE USE: does not use ED Exam General Limitations: Present no limitations General appearance: Present alert and in no apparent distress Head Head exam: Present atraumatic Eye Eye exam: Present normal appearance, PERRL and EOMI ENT ENT exam: Present normal exam, normal oropharynx and mucous membranes moist Neck Neck exam: Present normal inspection, full ROM and trachea midline Chest Chest inspection: Present normal inspection and symmetric chest wall rise Respiratory Respiratory exam: Present normal lung sounds bilaterally Cardiovascular Cardiovascular exam: Present regular rate, normal rhythm and normal heart sounds Abdominal Exam Abdominal exam: Present soft and normal bowel sounds Extremities Exam Extremities exam: Present normal inspection and full ROM Back Exam Back exam: Present normal inspection and full ROM Neurological Exam Neurological exam: Present alert, oriented X3 and CN II-XII intact Psychiatric Psychiatric exam: Present normal affect and normal mood Skin Skin exam: Present warm, dry, intact and normal color Course Quality Measures none Orders Category Date Time Status Catheter [Urinary Catheter] QS Care 07/26/24 23:31 Completed Saini to Leg Bag Routine Care 07/26/24 23:31 Ordered Lidocaine Jelly 2% Urojet [Xylocaine Jelly 2% Urojet] Med 07/26/24 23:31 Discontinued See Dose Instructions TOP X1 ONE Vital Signs Vital signs: Vital Signs Temperature 98.6 F 07/26/24 23:28 Pulse Rate 94 07/26/24 23:28 Respiratory Rate 16 07/26/24 23:28 Blood Pressure 164/84 H 07/26/24 23:28 Pulse Oximetry (%) 97 07/26/24 23:28 Oxygen Delivery Method Room Air 07/26/24 23:28 O2 at 97% on RA and WNLs Urogenital - Male MDM Narrative MDM Narrative:: 63M with history of BPH and bladder/kidney stones presents to ED for asking for Saini replacement because his fell out. Patient is supposed to get surgery soon. Physical exam reveals well-appearing male. Patient is afebrile, calm, and alert. Patient Saini inserted. Urine flowed freely. Patient data External records reviewed:: [facility] previous records Clinical information provided by:: patient Social determinants that could affect healthcare access:: none Patient has the following chronic illnesses:: BPH and bladder/kidney How is presenting disease/condition affected by chronic disease/condition?: caused by Evaluation data The following diagnostics were reviewed and interpreted by me:: other (specify) (none) Lab and/or radiology exams considered but not ordered:: not ordered Interpretation Summary: n/a Medications / Prescriptions Medications or Prescriptions considered but not ordered:: ordered Medication administrations:: Medication Administration History Discontinued Medications Lidocaine HCl (Lidocaine Jelly 2% (Urojet) 10 Ml Tube) 0 ml TOP X1 ONE Stop: 07/26/24 23:32 Last Admin: 07/27/24 01:04 Dose: 10 ml Documented By: above Consultations Consultation(s) initiated? (list below): No Diagnosis Urogenital Male Differential Diagnosis: urinary tract infection, priapism, urethritis, epididymitis, genital herpes simplex, prostatitis, acute retention of urine, inguinal hernia and other (Saini replacement) Most likely diagnosis given after review of the tests above:: Saini replacement Admission Indicated Admission indicated?: not indicated Admission Request Was there a request for admission?: No Disposition Plan Disposition Plan: Discharge Discharge Attestation Discharge Attestation: The patient and all family members were given an opportunity to ask questions and understood the discharge instructions. Discharge instructions specifically effects, indications for sooner follow up or return to the emergency department, and the expected course of current diagnosis. Patient condition: Stable Discharge Plan Plan Patient Disposition: HOME (Self Care) Disposition Comment: Stable Prescriptions/Referrals Prescriptions/Med Rec: No Action tamsulosin 0.4 mg capsule 0.4 mg PO DAILY sulfamethoxazole-trimethoprim [Bactrim DS] 800-160 mg tablet 1 tab PO BID Qty: 14 0RF sennosides-docusate sodium [Senokot-S] 8.6-50 mg tablet 4 tab-cap PO QDAY PRN (Reason: constipation) Qty: 20 0RF cefdinir 300 mg capsule 300 mg PO BID Qty: 14 0RF magnesium hydroxide [Milk Of Magnesia Concentrated] 2,400 mg/10 mL suspension 30 ml PO QDAY PRN (Reason: constipation) Qty: 60 0RF sulfamethoxazole-trimethoprim 800-160 mg tablet 1 tab PO BID Qty: 14 0RF acetaminophen 500 mg capsule 1,000 mg PO TID Qty: 30 0RF tamsulosin 0.4 mg capsule 0.4 mg PO QDAY Qty: 14 0RF cefdinir 300 mg capsule 300 mg PO BID Qty: 14 0RF fluconazole [Diflucan] 200 mg tablet 200 mg PO QDAY Qty: 7 0RF Problem List Clinical Impression: Encounter for Saini catheter replacement, Bladder calculi Patient/Caregiver Discharge Instructions Additional Instructions: Please follow-up with PCP within 24-48 hours and return immediately if symptoms worsen. Print Language: Amharic Stand Alone Forms: Patient Portal Info Letter PA/MAMMALOGY TEACHER Supervising Physician ALPHONSO/MAMMALOGY TEACHER Supervising Physician: Dr. Kumar
== END 2024-07-27 01:10 | disposition home or self-care (01) ==
LOC: SERX 07-27 01:16
PROVIDERS: Emergency Provider Emergency Medicine; PCP Family Medicine
DX: Z46.6 Encounter for fitting and adjustment of urinary device (principal); Z87.442 Personal history of urinary calculi; N40.0 Benign prostatic hyperplasia without lower urinary tract symptoms
CPT/HCPCS: 51702; 99283

== ENCOUNTER 2024-08-03 12:35 | Emergency (ER) | payer MEDICAID, SELFPAY ==
[2024-08-03 12:55] VITALS: BP 157/80; PULSE 96; RESP 20; TEMP 36.9; O2SAT 100; BMI 24.3
--- NOTE | 2024-08-03 13:18 | XR_ITS ---
Examination: CT abdomen and pelvis without contrast. Coronal 3-D reconstructions. Sagittal 2-D reconstructions. Date and time of exam:August 03, 2024 1327 hours Comparison July 19, 2024 INDICATIONS: Hematuria with right lower abdomen pain today, history left renal calculus and bladder calculi on CT study July 19, 2024 CTDI: vol (mGy): 5.64 DLP: (mGycm): 315 Technique: Axial images of the abdomen have been obtained, 3 mm slice thickness Intravenous contrast material has not been administered. Low dose protocols were performed. One or more of the following dose reduction techniques were used; automated exposure control, adjustment of the mA and/or KV according to patient size, use of iterative reconstruction technique. Findings: No focal liver or splenic lesions Contracted gallbladder No pancreatic or adrenal mass No renal or ureteral calculi, no hydronephrosis Aorta normal size Normal appendix Abundant stool in the rectosigmoid Large bladder calculi, including 3.6 cm, 2.9 cm, 3.2 cm and smaller calculi, urinary bladder contracted around a Melgar catheter IMPRESSION: No renal or ureteral calculi, no hydronephrosis Multiple bladder calculi Normal appendix
--- NOTE | 2024-08-03 13:19 | PD.EDRME ---
Rapid Medical Screening Exam RME Arrival date/time: 08/03/24 12:35 63-year-old male with a history of BPH presents to the emergency room with a chief complaint of right-sided flank pain that radiates down to his groin x 1 week. I have greeted and performed a focused initial assessment of this patient. A comprehensive ED assessment and evaluation of the patient, analysis of all test results, and completion of the medical decision making process will be conducted by additional ED providers. Chief Complaint: Urogenital-Male Time Seen by Provider: 08/03/24 12:41 Vital signs: Vital Signs Temperature 98.5 F 08/03/24 12:55 Pulse Rate 96 08/03/24 12:55 Respiratory Rate 20 08/03/24 12:55 Blood Pressure 157/80 H 08/03/24 12:55 Pulse Oximetry (%) 100 08/03/24 12:55 Oxygen Delivery Method Room Air 08/03/24 12:55 Vital signs reviewed by provider: Yes
[2024-08-03] MEDS: cefTRIAXone 1,000 MG, LIDOCAINE 1% 20 ML 2.1 ML IM (13:24)
[2024-08-03] MEDS: KETOROLAC INJ 60 MG/2 ML VIAL 30 MG IM (13:24)
[2024-08-03 15:31] LABS: Basophils % (Auto) 1 % (0-2.5); Eosinophils # (Auto) 0.3 Thou/mm3 (0.0-0.5); Eosinophils % (Auto) 5 % (0-10); Hematocrit 38.3 % (41.0-53.0); Hemoglobin 12.8 g/dL (13.5-16.0); Immature Granulocytes % (Auto) 0 % (0-0); Immature Granulocytes Auto 0.02 Thou/mm3 (0.00-0.00); Lymphocytes # (Auto) 1.4 Thou/mm3 (1.0-4.8); Lymphocytes % (Auto) 23 % (10-50); Mean Corpuscular HGB Conc 33.4 g/dl (31.0-37.0); Mean Corpuscular Hemoglobin 28.8 pg (25.0-35.0); Mean Corpuscular Volume 86 fL (80-100); Monocytes # (Auto) 0.7 Thou/mm3 (0.0-0.8); Monocytes % (Auto) 11 % (0-12); Neutrophils # (Auto) 3.7 Thou/mm3 (1.8-7.7); Neutrophils % (Auto) 60 % (37-80); Nucleated Red Blood Cell % 0 /100 WBC (0); Platelet Count 375 Thou/mm3 (140-440); RDW Standard Deviation 47.4 fL (35.1-43.9); Red Blood Count 4.45 Miln/mm3 (4.50-5.90); White Blood Count 6.1 Thou/mm3 (3.8-10.6)
[2024-08-03 15:40] LABS: Alanine Aminotransferase 18 U/L (10-49); Albumin, Serum 4.1 gm/dL (3.4-4.8); Albumin/Globulin Ratio 1.8 (1.2-2.2); Alkaline Phosphatase 78 U/L (46-116); Anion Gap 4 (7-16); Aspartate Amino Transferase 22 U/L (0-34); BUN/Creatinine Ratio 18 Ratio (12-20); Bilirubin,Total 0.2 mg/dL (0.3-1.2); Blood Urea Nitrogen 18 mg/dL (9-23); Calcium 9.2 mg/dL (8.3-10.6); Calcium (Corrected) 9.2 mg/dL (8.5-10.1); Carbon Dioxide 30.6 mMol/L (20.0-31.0); Chloride 105 mMol/L (98-107); Estimated Creatinine Clearance 75.1 mL/min (>60); Globulin 2.3 gm/dL (2.3-3.5); Glucose 99 mg/dL (74-106); Osmolality,Calculated 281 (275-295); Potassium 4.3 mMol/L (3.4-5.1); Sodium 140 mMol/L (136-145); Total Protein 6.4 gm/dL (5.7-8.2); eGFR > 60 See Note
--- NOTE | 2024-08-03 15:44 | PC.NURSE ---
CALLED PT BACK, NO ANSWER AT THIS TIME
[2024-08-03 15:50] LABS: INR 0.9 (0.9-1.3); Partial Thromboplastin Time 24.8 Seconds (22.0-36.0); Prothrombin Time 10.1 Seconds (9.0-12.2)
== END 2024-08-03 16:38 | disposition left against medical advice (07) ==
LOC: SERX 13:45
PROVIDERS: Nurse Practitioner Family; Emergency Provider Family Medicine
DX: R10.31 Right lower quadrant pain (principal); R31.9 Hematuria, unspecified; N40.0 Benign prostatic hyperplasia without lower urinary tract symptoms; Z53.29 Procedure and treatment not carried out because of patient's decision for other reasons
CPT/HCPCS: 36415; 74176; 80053; 81001; 85025; 85610; 85730; 87086; 96372; 99281; J0696; J1885; J3490

== ENCOUNTER 2024-08-04 12:24 | Emergency (ER) | payer MEDICAID, SELFPAY ==
[2024-08-04 12:46] VITALS: BP 151/80; PULSE 83; RESP 18; TEMP 37.1; O2SAT 98; BMI 22.7
--- NOTE | 2024-08-04 12:59 | PD.EDMALE ---
ED Male Genitalurinary RME/HPI General Chief complaint: Urogenital-Male Stated complaint: Clogged turner catheter Time Seen by Provider: 08/04/24 12:59 Source: patient Arrival date/time: 08/04/24 12:24 63-year-old male with a history of BPH presents to the emergency room with a chief complaint of a clogged Turner catheter. Mode of arrival: ambulatory Limitations: no limitations Related Data Home Medications ?Medication ?Instructions ?Recorded ?Confirmed tamsulosin 0.4 mg capsule 0.4 mg PO DAILY 01/19/21 07/02/21 Previous Rx's ?Medication ?Instructions ?Recorded sulfamethoxazole 800 1 tab PO BID #14 tabs 04/04/23 mg-trimethoprim 160 mg tablet acetaminophen 500 mg capsule 1,000 mg (2 x 500 mg) PO TID #30 04/23/23 caps tamsulosin 0.4 mg capsule 0.4 mg PO QDAY #14 caps 11/01/23 sulfamethoxazole 800 1 tab PO BID #14 tabs 12/28/23 mg-trimethoprim 160 mg tablet (Bactrim DS) cefdinir 300 mg capsule 300 mg PO BID #14 caps 02/22/24 fluconazole 200 mg tablet 200 mg PO QDAY #7 tabs 02/22/24 (Diflucan) cefdinir 300 mg capsule 300 mg PO BID #14 caps 06/02/24 magnesium hydroxide 2,400 mg/10 mL 30 ml PO QDAY PRN constipation #60 06/02/24 oral suspension (Milk Of Magnesia mL Concentrated) sennosides 8.6 mg-docusate sodium 4 tab-cap (4 x 8.6-50 mg) PO QDAY 06/02/24 50 mg tablet (Senokot-S) PRN constipation #20 tabs Allergies Allergy/AdvReac Type Severity Reaction Status Date / Time No Known Allergies Allergy Verified 08/04/24 12:26 Review of Systems Review of Systems Systems Reviewed: All systems reviewed, normal except as documented Constitutional Constitutional: Reports system reviewed and no additional complaints, except as documented, Denies fatigue, Denies fever(s), Denies headache(s) and Denies weakness Eyes Eyes: Reports system reviewed and no additional complaints, except as documented, Denies blurry vision and Denies change in vision ENT Ears, Nose, Mouth, and Throat: Reports system reviewed and no additional complaints, except as documented, Denies otalgia, Denies headache(s), Denies nasal congestion, Denies throat swelling and Denies vertigo Cardiovascular Cardiovascular: Reports system reviewed and no additional complaints, except as documented, Denies chest pain, Denies dyspnea and Denies dyspnea on exertion Respiratory Respiratory: Reports system reviewed and no additional complaints, except as documented, Denies chest congestion, Denies cough, Denies dyspnea, Denies dyspnea on exertion and Denies wheezing Gastrointestinal Gastrointestinal: Reports system reviewed and no additional complaints, except as documented, Denies abdominal pain, Denies cramping, Denies nausea and Denies vomiting Genitourinary Genitourinary: Reports system reviewed and no additional complaints, except as documented, Denies dysuria and Denies hematuria Musculoskeletal Musculoskeletal: Reports system reviewed and no additional complaints, except as documented and Denies back pain Integumentary/Breasts Skin/Breast: Reports system reviewed and no additional complaints, except as documented and Denies wounds Neurologic Neurologic: Reports system reviewed and no additional complaints, except as documented, Denies confusion, Denies headache(s), Denies lack of coordination, Denies vertigo and Denies weakness Psychiatric Psychiatric: Reports system reviewed and no additional complaints, except as documented, Denies anxiety, Denies confusion, Denies depression, Denies paranoia, Denies suicidal ideation and Denies tactile hallucinations Endocrine Endocrine: Reports system reviewed and no additional complaints, except as documented and Denies fatigue Hematologic/Lymphatic Hematologic/Lymphatic: Reports system reviewed and no additional complaints, except as documented and Denies lymphadenopathy Allergic/Immunologic Allergic/Immunologic: Reports system reviewed and no additional complaints, except as documented, Denies throat swelling, Denies urticaria and Denies wheezing Past Medical History Past Medical History NEUROLOGIC: Negative Neurological Disorders or Seizures CARDIAC: Negative Cardiac Disorders or Congestive Heart Failure RESPIRATORY: Negative Chronic Obstructive Pulmonary Disease (COPD) or Asthma GENITOURINARY: Positive Genitourinary Disorders, Kidney Stones and Benign Prostatic Hyperplasia; Negative Renal Disease MUSCULOSKELETAL: Positive Musculoskeletal Disorders and Degenerative Joint Disease ENDOCRINE: Negative Diabetes Mellitus Type 1 or Diabetes Mellitus Type 2 HEMATOLOGIC: Negative Sickle Cell Disease OTHER HISTORY: Negative Blood Transfusions, Blood Transfusion Reaction or Anesthesia Reactions Social History SMOKING STATUS: Current every day smoker SUBSTANCE USE: does not use ED Exam General Limitations: Present no limitations General appearance: Present alert and in no apparent distress Head Head exam: Present atraumatic Eye Eye exam: Present normal appearance, PERRL and EOMI ENT ENT exam: Present normal exam, normal oropharynx and mucous membranes moist Neck Neck exam: Present normal inspection, full ROM and trachea midline Chest Chest inspection: Present normal inspection and symmetric chest wall rise Respiratory Respiratory exam: Present normal lung sounds bilaterally Cardiovascular Cardiovascular exam: Present regular rate, normal rhythm and normal heart sounds Abdominal Exam Abdominal exam: Present soft and normal bowel sounds Extremities Exam Extremities exam: Present normal inspection and full ROM Back Exam Back exam: Present normal inspection and full ROM Neurological Exam Neurological exam: Present alert, oriented X3 and CN II-XII intact Psychiatric Psychiatric exam: Present normal affect and normal mood Skin Skin exam: Present warm, dry, intact and normal color Course Quality Measures none Orders Category Date Time Status Turner [Urinary Catheter, Remove] ONCE Care 08/04/24 12:55 Completed Turner [Urinary Catheter] QS Care 08/04/24 12:55 Completed Lidocaine Jelly 2% Urojet [Xylocaine Jelly 2% Urojet] Med 08/04/24 12:59 Discontinued See Dose Instructions TOP X1 ONE Vital Signs Vital signs: Vital Signs Temperature 98.8 F 08/04/24 12:46 Pulse Rate 83 08/04/24 12:46 Respiratory Rate 18 08/04/24 12:46 Blood Pressure 151/80 H 08/04/24 12:46 Pulse Oximetry (%) 98 08/04/24 12:46 Oxygen Delivery Method Room Air 08/04/24 12:46 O2 saturation 98% within normal limits Urogenital - Male MDM Narrative MDM Narrative:: 63-year-old male with a history of BPH presents to the emergency room with a chief complaint of a clogged Turner catheter. Patient is hemodynamically stable and in no apparent distress. The patient was seen yesterday and had a full workup which was negative. Today the patient states that he is not having any more pain and is only here because his catheter is clogged. Catheter was replaced and patient was discharged patient was educated to keep his appointment with his urologist as well as his primary care provider Patient was discharged and educated to follow-up with primary care provider in the next 24 to 48 hours and return to the emergency room for any evidence of worsening signs or symptoms Patient data External records reviewed:: [facility] previous records Clinical information provided by:: patient Social determinants that could affect healthcare access:: none Patient has the following chronic illnesses:: BPH How is presenting disease/condition affected by chronic disease/condition?: caused by Evaluation data The following diagnostics were reviewed and interpreted by me:: lab results and radiology exam(s) Lab and/or radiology exams considered but not ordered:: Labs and radiology exams considered in order Interpretation Summary: N/A Medications / Prescriptions Medications or Prescriptions considered but not ordered:: Medication given Medication administrations:: Medication Administration History Discontinued Medications Lidocaine HCl (Lidocaine Jelly 2% (Urojet) 10 Ml Tube) 0 ml TOP X1 ONE Stop: 08/04/24 13:00 Last Admin: 08/04/24 13:57 Dose: 10 ml Documented By: Medication given Consultations Consultation(s) initiated? (list below): No Diagnosis Urogenital Male Differential Diagnosis: urinary tract infection, urethritis and acute retention of urine Most likely diagnosis given after review of the tests above:: Acute urinary retention Admission Indicated Admission indicated?: not indicated Admission Request Was there a request for admission?: No Disposition Plan Disposition Plan: Discharge Discharge Attestation Discharge Attestation: The patient and all family members were given an opportunity to ask questions and understood the discharge instructions. Discharge instructions specifically effects, indications for sooner follow up or return to the emergency department, and the expected course of current diagnosis. Patient condition: Stable Discharge Plan Plan Patient Disposition: HOME (Self Care) Discharge Disposition comment: Stable Prescriptions/Referrals Prescriptions/Med Rec: No Action tamsulosin 0.4 mg capsule 0.4 mg PO DAILY sulfamethoxazole-trimethoprim [Bactrim DS] 800-160 mg tablet 1 tab PO BID Qty: 14 0RF sennosides-docusate sodium [Senokot-S] 8.6-50 mg tablet 4 tab-cap PO QDAY PRN (Reason: constipation) Qty: 20 0RF cefdinir 300 mg capsule 300 mg PO BID Qty: 14 0RF magnesium hydroxide [Milk Of Magnesia Concentrated] 2,400 mg/10 mL suspension 30 ml PO QDAY PRN (Reason: constipation) Qty: 60 0RF sulfamethoxazole-trimethoprim 800-160 mg tablet 1 tab PO BID Qty: 14 0RF acetaminophen 500 mg capsule 1,000 mg PO TID Qty: 30 0RF tamsulosin 0.4 mg capsule 0.4 mg PO QDAY Qty: 14 0RF cefdinir 300 mg capsule 300 mg PO BID Qty: 14 0RF fluconazole [Diflucan] 200 mg tablet 200 mg PO QDAY Qty: 7 0RF Problem List Clinical Impression: Acute urinary retention Patient/Caregiver Discharge Instructions Education Materials: ED Urinary Retention, Male Additional Instructions: Please follow-up with your primary care provider in the next 24 to 48 hours. You also need to keep your appointment with your urologist. For any evidence of worsening signs or symptoms return to emergency room immediately Print Language: Tajik Stand Alone Forms: Latoya Award Info., Patient Portal Info Letter PA/SIDE GUIDER Supervising Physician PA/SIDE GUIDER Supervising Physician: Dr. Oswald
[2024-08-04] MEDS: LIDOCAINE JELLY 2% (Urojet) 10 ML TUBE TOP (13:57)
== END 2024-08-04 14:06 | disposition home or self-care (01) ==
LOC: SERX 13:43
PROVIDERS: Emergency Provider Family Medicine
DX: N40.1 Benign prostatic hyperplasia with lower urinary tract symptoms (principal); R33.8 Other retention of urine
CPT/HCPCS: 51702; 99283

== ENCOUNTER 2024-08-04 21:05 | Emergency (ER) | payer MEDICAID, SELFPAY ==
[2024-08-04 21:06] VITALS: BMI 24.3
--- NOTE | 2024-08-04 22:02 | PD.EDMALE ---
ED Male Genitalurinary RME/HPI General Chief complaint: Urogenital-Male Stated complaint: SAINI CHANGE Time Seen by Provider: 08/04/24 21:11 Arrival date/time: 08/04/24 21:05 63-year-old male presents emergency department today stating that he would like to have his Saini catheter replaced patient is been here multiple times for the same. Patient ports no fever nausea vomiting no abdominal pain Limitations: no limitations Related Data Home Medications ?Medication ?Instructions ?Recorded ?Confirmed tamsulosin 0.4 mg capsule 0.4 mg PO DAILY 01/19/21 07/02/21 Previous Rx's ?Medication ?Instructions ?Recorded sulfamethoxazole 800 1 tab PO BID #14 tabs 04/04/23 mg-trimethoprim 160 mg tablet acetaminophen 500 mg capsule 1,000 mg (2 x 500 mg) PO TID #30 04/23/23 caps tamsulosin 0.4 mg capsule 0.4 mg PO QDAY #14 caps 11/01/23 sulfamethoxazole 800 1 tab PO BID #14 tabs 12/28/23 mg-trimethoprim 160 mg tablet (Bactrim DS) cefdinir 300 mg capsule 300 mg PO BID #14 caps 02/22/24 fluconazole 200 mg tablet 200 mg PO QDAY #7 tabs 02/22/24 (Diflucan) cefdinir 300 mg capsule 300 mg PO BID #14 caps 06/02/24 magnesium hydroxide 2,400 mg/10 mL 30 ml PO QDAY PRN constipation #60 06/02/24 oral suspension (Milk Of Magnesia mL Concentrated) sennosides 8.6 mg-docusate sodium 4 tab-cap (4 x 8.6-50 mg) PO QDAY 06/02/24 50 mg tablet (Senokot-S) PRN constipation #20 tabs Allergies Allergy/AdvReac Type Severity Reaction Status Date / Time No Known Allergies Allergy Verified 08/04/24 12:26 Review of Systems Review of Systems Systems Reviewed: All systems reviewed, normal except as documented Constitutional Constitutional: Reports system reviewed and no additional complaints, except as documented, Denies fever(s) and Denies headache(s) Eyes Eyes: Reports system reviewed and no additional complaints, except as documented and Denies blurry vision ENT Ears, Nose, Mouth, and Throat: Reports system reviewed and no additional complaints, except as documented, Denies headache(s), Denies nasal congestion and Denies nasal discharge Cardiovascular Cardiovascular: Reports system reviewed and no additional complaints, except as documented, Denies chest pain and Denies dyspnea Respiratory Respiratory: Reports system reviewed and no additional complaints, except as documented, Denies chest congestion, Denies cough and Denies dyspnea Gastrointestinal Gastrointestinal: Reports system reviewed and no additional complaints, except as documented and Denies abdominal pain Genitourinary Genitourinary: Reports system reviewed and no additional complaints, except as documented, Denies dysuria and Reports other (Saini catheter in place) Integumentary/Breasts Skin/Breast: Reports system reviewed and no additional complaints, except as documented and Denies rash Neurologic Neurologic: Reports system reviewed and no additional complaints, except as documented, Reports as per HPI and Denies headache(s) Past Medical History Past Medical History NEUROLOGIC: Negative Neurological Disorders or Seizures CARDIAC: Negative Cardiac Disorders or Congestive Heart Failure RESPIRATORY: Negative Chronic Obstructive Pulmonary Disease (COPD) or Asthma GENITOURINARY: Positive Genitourinary Disorders, Kidney Stones and Benign Prostatic Hyperplasia; Negative Renal Disease MUSCULOSKELETAL: Positive Musculoskeletal Disorders and Degenerative Joint Disease ENDOCRINE: Negative Diabetes Mellitus Type 1 or Diabetes Mellitus Type 2 HEMATOLOGIC: Negative Sickle Cell Disease OTHER HISTORY: Negative Blood Transfusions, Blood Transfusion Reaction or Anesthesia Reactions Social History SMOKING STATUS: Current every day smoker SUBSTANCE USE: does not use ED Exam General Limitations: Present no limitations General appearance: Present alert and in no apparent distress Head Head exam: Present atraumatic Eye Eye exam: Present normal appearance, PERRL and EOMI ENT ENT exam: Present normal exam, normal oropharynx and mucous membranes moist Neck Neck exam: Present normal inspection, full ROM and trachea midline Chest Chest inspection: Present normal inspection and symmetric chest wall rise Respiratory Respiratory exam: Present normal lung sounds bilaterally Cardiovascular Cardiovascular exam: Present regular rate, normal rhythm and normal heart sounds Abdominal Exam Abdominal exam: Present soft and normal bowel sounds; Absent distention or tenderness exam: Present other (Saini catheter in place); Absent testicular tenderness or urethral discharge Extremities Exam Extremities exam: Present normal inspection and full ROM Back Exam Back exam: Present normal inspection and full ROM Neurological Exam Neurological exam: Present alert, oriented X3 and CN II-XII intact Psychiatric Psychiatric exam: Present normal affect and normal mood Skin Skin exam: Present warm, dry, intact and normal color Course Quality Measures none Orders Category Date Time Status Saini [Urinary Catheter, Remove] NOW Care 08/04/24 21:15 Completed Saini [Urinary Catheter] QS Care 08/04/24 22:27 Completed Saini to Leg Bag NOW Care 08/04/24 21:15 Ordered Lidocaine Jelly 2% Urojet [Xylocaine Jelly 2% Urojet] Med 08/04/24 21:15 Discontinued See Dose Instructions TOP X1 ONE Vital Signs Vital signs: Vital Signs Temperature 98.1 F 08/04/24 22:09 Pulse Rate 94 08/04/24 22:09 Respiratory Rate 18 08/04/24 22:09 Blood Pressure 144/78 H 08/04/24 22:09 Pulse Oximetry (%) 99 08/04/24 22:09 Oxygen Delivery Method Room Air 08/04/24 22:09 O2 saturation 99% on room air with normal Urogenital - Male MDM Narrative MDM Narrative:: 63-year-old male presents emergency department today stating that he would like to have his Saini catheter replaced patient is been here multiple times for the same. Patient reports no fever nausea vomiting no abdominal pain On exam patient well-appearing patient does not appear toxic no acute acute distress patient's Saini catheter is replaced Patient discharged home in no distress to follow-up with primary care doctor in the next 24 to 48 hours and for any worsening symptoms to return to the ER immediately Patient data External records reviewed:: [facility] previous records Clinical information provided by:: patient Social determinants that could affect healthcare access:: none Patient has the following chronic illnesses:: See history How is presenting disease/condition affected by chronic disease/condition?: caused by Evaluation data The following diagnostics were reviewed and interpreted by me:: other (specify) (N/A) Lab and/or radiology exams considered but not ordered:: Consider not ordered Interpretation Summary: N/A Medications / Prescriptions Medications or Prescriptions considered but not ordered:: Given Medication administrations:: Medication Administration History Discontinued Medications Lidocaine HCl (Lidocaine Jelly 2% (Urojet) 10 Ml Tube) 0 ml TOP X1 ONE Stop: 08/04/24 21:16 Last Admin: 08/04/24 22:10 Dose: 10 ml Documented By: SE Given Consultations Consultation(s) initiated? (list below): No Diagnosis Urogenital Male Differential Diagnosis: urinary tract infection, urethritis and other (Cystitis) Most likely diagnosis given after review of the tests above:: Encounter for Saini catheter replacement Admission Indicated Admission indicated?: not indicated Admission Request Was there a request for admission?: No Disposition Plan Disposition Plan: Discharge Discharge Attestation Discharge Attestation: The patient and all family members were given an opportunity to ask questions and understood the discharge instructions. Discharge instructions specifically effects, indications for sooner follow up or return to the emergency department, and the expected course of current diagnosis. Patient condition: Stable Discharge Plan Plan Patient Disposition: HOME (Self Care) Discharge Disposition comment: Stable Prescriptions/Referrals Prescriptions/Med Rec: No Action tamsulosin 0.4 mg capsule 0.4 mg PO DAILY sulfamethoxazole-trimethoprim [Bactrim DS] 800-160 mg tablet 1 tab PO BID Qty: 14 0RF sennosides-docusate sodium [Senokot-S] 8.6-50 mg tablet 4 tab-cap PO QDAY PRN (Reason: constipation) Qty: 20 0RF cefdinir 300 mg capsule 300 mg PO BID Qty: 14 0RF magnesium hydroxide [Milk Of Magnesia Concentrated] 2,400 mg/10 mL suspension 30 ml PO QDAY PRN (Reason: constipation) Qty: 60 0RF sulfamethoxazole-trimethoprim 800-160 mg tablet 1 tab PO BID Qty: 14 0RF acetaminophen 500 mg capsule 1,000 mg PO TID Qty: 30 0RF tamsulosin 0.4 mg capsule 0.4 mg PO QDAY Qty: 14 0RF cefdinir 300 mg capsule 300 mg PO BID Qty: 14 0RF fluconazole [Diflucan] 200 mg tablet 200 mg PO QDAY Qty: 7 0RF Problem List Clinical Impression: Saini catheter problem Patient/Caregiver Discharge Instructions Additional Instructions: Please follow up with your primary care doctor in the next 24-48hrs for any worsening symptoms return here immediately Print Language: Amharic Stand Alone Forms: Latoya Award Info., Patient Portal Info Letter PA/VERIFY REP Supervising Physician PA/VERIFY REP Supervising Physician: Dr. berman
[2024-08-04 22:09] VITALS: BP 144/78; PULSE 94; RESP 18; TEMP 36.7; O2SAT 99
[2024-08-04] MEDS: LIDOCAINE JELLY 2% (Urojet) 10 ML TUBE TOP (22:10)
== END 2024-08-04 22:40 | disposition home or self-care (01) ==
LOC: SERX 22:44
PROVIDERS: Emergency Provider Emergency Medicine; PCP Family Medicine
DX: Z46.82 Encounter for fitting and adjustment of non-vascular catheter (principal)
CPT/HCPCS: 51702; 99283

== ENCOUNTER 2024-08-22 16:14 | Emergency (ER) | payer MEDICAID, SELFPAY ==
[2024-08-22 16:14] VITALS: BMI 22.9
[2024-08-22 17:00] VITALS: BP 160/83; PULSE 96; RESP 20; TEMP 36.8; O2SAT 98
--- NOTE | 2024-08-22 17:03 | EDNOTE_ITS ---
<Statement entered by Marylou Andersen MD - 08/23/24 17:06> As co-signing physician, I was present and available for consult prn. I concur with the plan and care as documented by the midlevel provider. ED Male Genitalurinary RME/HPI General Chief complaint: Urogenital-Male Stated complaint: MY SAINI NEEDS TO BE CHANGED Time Seen by Provider: 08/22/24 16:17 Source: patient Arrival date/time: 08/22/24 16:14 63-year-old male with a history of BPH presents to the emergency room with a chief complaint of urinary retention x 1 day. Mode of arrival: ambulatory Limitations: no limitations Related Data Home Medications ?Medication ?Instructions ?Recorded ?Confirmed tamsulosin 0.4 mg capsule 0.4 mg PO DAILY 01/19/2109/17 Previous Rx's ?Medication ?Instructions ?Recorded sulfamethoxazole 800 1 tab PO BID #14 tabs mg-trimethoprim 160 mg tablet acetaminophen 500 mg capsule 1,000 mg (2 x 500 mg) PO TID #30 04/23/23 caps tamsulosin 0.4 mg capsule 0.4 mg PO QDAY #14 caps 08/19 sulfamethoxazole 800 1 tab PO BID #14 tabs mg-trimethoprim 160 mg tablet (Bactrim DS) cefdinir 300 mg capsule 300 mg PO BID #14 caps 02/21 fluconazole 200 mg tablet 200 mg PO QDAY #7 tabs 02/21 (Diflucan) cefdinir 300 mg capsule 300 mg PO BID #14 caps 06/02 magnesium hydroxide 2,400 mg/10 mL 30 ml PO QDAY PRN c onstipation #60 06/02/24 oral suspension (Milk Of Magnesia mL Concentrated) sennosides 8.6 mg-docusate sodium 4 tab-cap (4 x 8.6-5 0 mg) PO QDAY 06/02/24 50 mg tablet (Senokot-S) PRN constipation #20 tabs Allergies Allergy/AdvReac Type Severity Reaction Status Date / Time No Known Allergies Allergy Verified 08/22/24 16:17 ED Exam General Limitations: Present no limitations Course Quality Measures none Orders Category Date Time Status Saini [Urinary Catheter, Remove] ONCE Care 08/22/24 17:02 Active Saini [Urinary Catheter] QS Care 08/22/24 17:02 Active Saini to Leg Bag Routine Care 08/22/24 17:02 Ordered Lidocaine Jelly 2% Urojet [Xylocaine Jelly 2% Urojet] Med 08/22/24 17:02 D iscontinued See Dose Instructions TOP X1 ONE Vital Signs Vital signs: Vital Signs Temperature 98.3 F 08/22/24 17:00 Pulse Rate 96 08/22/24 17:00 Respiratory Rate 20 08/22/24 17:00 Blood Pressure 160/83 H 08/22/24 17:00 Pulse Oximetry (%) 98 08/22/24 17:00 Oxygen Delivery Method Room Air 08/22/24 17:00 Urogenital - Male MDM Narrative MDM Narrative:: 63-year-old male with a history of BPH presents to the emergency room with a chief complaint of urinary retention x 1 day. Patient is hemodynamically stable and in no apparent distress. Patient denies any dysuria fevers or any flank pain Patient states he is only here for catheter change. Patient states he has an appointment with his urologist on 09/21/2024 where they were going to do surgery. The catheter was replaced. Patient was discharged and educated to follow-up with primary care provider in the next 24 to 48 hours and return to the emergency room for any evidence of worsening signs or symptoms Patient data External records reviewed:: [facility] previous records Clinical information provided by:: patient Social determinants that could affect healthcare access:: none Patient has the following chronic illnesses:: BPH How is presenting disease/condition affected by chronic disease/condition?: caused by Evaluation data The following diagnostics were reviewed and interpreted by me:: lab results and radiology exam(s) Lab and/or radiology exams considered but not ordered:: Labs and radiology exams considered and ordered Interpretation Summary: N/A Medications / Prescriptions Medications or Prescriptions considered but not ordered:: Medication given Medication administrations:: Medication Administration History Discontinued Medications Lidocaine HCl (Lidocaine Jelly 2% (Urojet) 10 Ml Tube) 0 ml TOP X1 ONE Stop: 08/22/24 17:03 Last Admin: 08/22/24 17:39 Dose: 5 ml Documented By: KF Medication given Consultations Consultation(s) initiated? (list below): No Diagnosis Urogenital Male Differential Diagnosis: urinary tract infection, urethritis, prostatitis and acute retention of urine Most likely diagnosis given after review of the tests above:: Acute retention of urine Admission Indicated Admission indicated?: not indicated Admission Request Was there a request for admission?: No Disposition Plan Disposition Plan: Discharge Discharge Attestation Discharge Attestation: The patient and all family members were given an opportunity to ask questions and understood the discharge instructions. Discharge instructions specifically effects, indications for sooner follow up or return to the emergency department, and the expected course of current diagnosis. Patient condition: Stable Discharge Plan Plan Patient Disposition: HOME (Self Care) Discharge Disposition comment: Stable Prescriptions/Referrals Prescriptions/Med Rec: No Action tamsulosin 0.4 mg capsule 0.4 mg PO DAILY sulfamethoxazole-trimethoprim [Bactrim DS] 800-160 mg tablet 1 tab PO BID Qty: 14 0RF sennosides-docusate sodium [Senokot-S] 8.6-50 mg tablet 4 tab-cap PO QDAY PRN (Reason: constipation) Qty: 20 0RF cefdinir 300 mg capsule 300 mg PO BID Qty: 14 0RF magnesium hydroxide [Milk Of Magnesia Concentrated] 2,400 mg/10 mL suspension 30 ml PO QDAY PRN (Reason: constipation) Qty: 60 0RF sulfamethoxazole-trimethoprim 800-160 mg tablet 1 tab PO BID Qty: 14 0RF acetaminophen 500 mg capsule 1,000 mg PO TID Qty: 30 0RF tamsulosin 0.4 mg capsule 0.4 mg PO QDAY Qty: 14 0RF cefdinir 300 mg capsule 300 mg PO BID Qty: 14 0RF fluconazole [Diflucan] 200 mg tablet 200 mg PO QDAY Qty: 7 0RF Problem List Clinical Impression: Acute urinary retention Patient/Caregiver Discharge Instructions Education Materials: ED Urinary Retention, Male Additional Instructions: Please keep your appointment with your urologist on 09/21/2024 Please follow-up with your primary care provider in the next 24 to 48 hours For any evidence of worsening signs or symptoms return to the emergency room immediately Print Language: Welsh Stand Alone Forms: Latoya Award Info., Patient Portal Info Letter PA/BAIL BOND AGENT Supervising Physician PA/BAIL BOND AGENT Supervising Physician: Dr. ANDERSEN
[2024-08-22] MEDS: LIDOCAINE JELLY 2% (Urojet) 10 ML TUBE TOP (17:39)
== END 2024-08-22 17:42 | disposition home or self-care (01) ==
LOC: SERX 17:41
PROVIDERS: Emergency Provider Emergency Medicine
DX: N40.1 Benign prostatic hyperplasia with lower urinary tract symptoms (principal); R33.8 Other retention of urine
CPT/HCPCS: 51702; 99283

== ENCOUNTER 2024-08-26 21:34 | Emergency (ER) | payer MEDICAID, SELFPAY ==
[2024-08-26 21:34] VITALS: BMI 22.9
--- NOTE | 2024-08-26 23:31 | PC.NURSE ---
CALLED PATIENT IN THE LOBBY AND OUTSIDE, NO ANSWER RECIEVED.
--- NOTE | 2024-08-26 23:34 | PD.EDADDENDU ---
Emergency Room Addendum Addendum Narrative: When I looked for the patient to start my evaluation, I was told he eloped. Naun Alexandra MD
== END 2024-08-26 23:38 | disposition left against medical advice (07) ==
PROVIDERS: Emergency Provider Emergency Medicine
DX: Z53.21 Procedure and treatment not carried out due to patient leaving prior to being seen by health care provider (principal)

== ENCOUNTER 2024-08-28 06:56 | Emergency (ER) | payer MEDICAID, SELFPAY ==
[2024-08-28 06:58] VITALS: BMI 22.9
[2024-08-28 07:06] VITALS: BP 141/79; PULSE 85; RESP 16; TEMP 36.7; O2SAT 98; BMI 22.9
--- NOTE | 2024-08-28 07:33 | XR_ITS ---
Examination: CT abdomen and pelvis without contrast. Coronal 3-D reconstructions. Sagittal 2-D reconstructions. Date and time of exam:August 28, 2024 0750 hours INDICATIONS: Abdominal pain and flank pain right lower abdomen pain beginning today COMPARISON: August 03, 2024 CTDI: vol (mGy): 5.68 DLP: (mGycm): 303 Technique: Axial images of the abdomen have been obtained, 3 mm slice thickness Intravenous contrast material has not been administered. Low dose protocols were performed. One or more of the following dose reduction techniques were used; automated exposure control, adjustment of the mA and/or KV according to patient size, use of iterative reconstruction technique. Findings: No focal liver or splenic lesions Contracted gallbladder No pancreatic or adrenal mass No renal or ureteral calculi, no hydronephrosis Aorta normal size Normal appendix Abundant stool throughout the colon Multiple very large bladder calculi, the largest measuring 4 cm Diffuse thickening of the urinary bladder wall Urinary Melgar catheter present. Lower lumbar fusion with severe osteopenia IMPRESSION: Multiple large bladder calculi Significant thickening of the urinary bladder wall, differential would include cystitis
[2024-08-28] MEDS: KETOROLAC INJ 30 MG/ML VIAL IM (08:00)
[2024-08-28 08:43] LABS: Basophils # (Auto) 0.1 Thou/mm3 (0.0-0.2); Basophils % (Auto) 1 % (0-2.5); Eosinophils # (Auto) 0.4 Thou/mm3 (0.0-0.5); Eosinophils % (Auto) 5 % (0-10); Hematocrit 40.1 % (41.0-53.0); Hemoglobin 13.4 g/dL (13.5-16.0); Immature Granulocytes % (Auto) 0 % (0-0); Immature Granulocytes Auto 0.02 Thou/mm3 (0.00-0.00); Lymphocytes # (Auto) 1.3 Thou/mm3 (1.0-4.8); Lymphocytes % (Auto) 18 % (10-50); Mean Corpuscular HGB Conc 33.4 g/dl (31.0-37.0); Mean Corpuscular Hemoglobin 28.9 pg (25.0-35.0); Mean Corpuscular Volume 86 fL (80-100); Monocytes # (Auto) 0.8 Thou/mm3 (0.0-0.8); Monocytes % (Auto) 11 % (0-12); Neutrophils % (Auto) 65 % (37-80); Nucleated Red Blood Cell % 0 /100 WBC (0); Platelet Count 342 Thou/mm3 (140-440); RDW Standard Deviation 47.7 fL (35.1-43.9); Red Blood Count 4.64 Miln/mm3 (4.50-5.90); White Blood Count 7.6 Thou/mm3 (3.8-10.6)
[2024-08-28 08:53] LABS: Alanine Aminotransferase 16 U/L (10-49); Albumin/Globulin Ratio 1.9 (1.2-2.2); Alkaline Phosphatase 84 U/L (46-116); Anion Gap 7 (7-16); Aspartate Amino Transferase 23 U/L (0-34); BUN/Creatinine Ratio 25 Ratio (12-20); Bilirubin,Total < 0.2 mg/dL (0.3-1.2); Blood Urea Nitrogen 25 mg/dL (9-23); Calcium 8.8 mg/dL (8.3-10.6); Calcium (Corrected) 8.8 mg/dL (8.5-10.1); Carbon Dioxide 30.1 mMol/L (20.0-31.0); Chloride 107 mMol/L (98-107); Estimated Creatinine Clearance 79.6 mL/min (>60); Globulin 2.1 gm/dL (2.3-3.5); Glucose 93 mg/dL (74-106); Osmolality,Calculated 291 (275-295); Potassium 4.7 mMol/L (3.4-5.1); Sodium 144 mMol/L (136-145); Total Protein 6.1 gm/dL (5.7-8.2); eGFR > 60 See Note
--- NOTE | 2024-08-28 09:17 | PD.EDADULT ---
ED General RME/HPI General Chief complaint: General Adult/Misc Complain Stated complaint: SAINI CATH NOT DRAINING Time Seen by Provider: 08/28/24 07:01 Arrival date/time: 08/28/24 06:56 63-year-old male presents emergency department today with concerns for his Saini catheter as well as right inguinal pain and constipation Limitations: no limitations Related Data Home Medications ?Medication ?Instructions ?Recorded ?Confirmed tamsulosin 0.4 mg capsule 0.4 mg PO DAILY 01/19/21 07/02/21 Previous Rx's ?Medication ?Instructions ?Recorded sulfamethoxazole 800 1 tab PO BID #14 tabs 04/04/23 mg-trimethoprim 160 mg tablet acetaminophen 500 mg capsule 1,000 mg (2 x 500 mg) PO TID #30 04/23/23 caps tamsulosin 0.4 mg capsule 0.4 mg PO QDAY #14 caps 11/01/23 sulfamethoxazole 800 1 tab PO BID #14 tabs 12/28/23 mg-trimethoprim 160 mg tablet (Bactrim DS) cefdinir 300 mg capsule 300 mg PO BID #14 caps 02/22/24 fluconazole 200 mg tablet 200 mg PO QDAY #7 tabs 02/22/24 (Diflucan) cefdinir 300 mg capsule 300 mg PO BID #14 caps 06/02/24 magnesium hydroxide 2,400 mg/10 mL 30 ml PO QDAY PRN constipation #60 06/02/24 oral suspension (Milk Of Magnesia mL Concentrated) sennosides 8.6 mg-docusate sodium 4 tab-cap (4 x 8.6-50 mg) PO QDAY 06/02/24 50 mg tablet (Senokot-S) PRN constipation #20 tabs docusate sodium 100 mg capsule 100 mg PO BID 7 days #14 caps 08/28/24 polyethylene glycol 3350 17 17 g PO QDAY 3 days #119 grams 08/28/24 gram/dose oral powder (Miralax) sodium phosphates 19 gram-7 118 ml RI QDAY PRN constipation 08/28/24 gram/118 mL enema (Enema) #133 mL Allergies Allergy/AdvReac Type Severity Reaction Status Date / Time No Known Allergies Allergy Verified 08/28/24 07:01 Review of Systems Review of Systems Systems Reviewed: All systems reviewed, normal except as documented Constitutional Constitutional: Reports system reviewed and no additional complaints, except as documented, Denies fever(s) and Denies headache(s) Eyes Eyes: Reports system reviewed and no additional complaints, except as documented and Denies blurry vision ENT Ears, Nose, Mouth, and Throat: Reports system reviewed and no additional complaints, except as documented, Denies headache(s), Denies nasal congestion and Denies nasal discharge Cardiovascular Cardiovascular: Reports system reviewed and no additional complaints, except as documented, Denies chest pain and Denies dyspnea Respiratory Respiratory: Reports system reviewed and no additional complaints, except as documented, Denies chest congestion, Denies cough and Denies dyspnea Gastrointestinal Gastrointestinal: Reports system reviewed and no additional complaints, except as documented and Denies abdominal pain Integumentary/Breasts Skin/Breast: Reports system reviewed and no additional complaints, except as documented and Denies rash Neurologic Neurologic: Reports system reviewed and no additional complaints, except as documented, Reports as per HPI and Denies headache(s) Past Medical History Past Medical History NEUROLOGIC: Negative Neurological Disorders or Seizures CARDIAC: Negative Cardiac Disorders or Congestive Heart Failure RESPIRATORY: Negative Chronic Obstructive Pulmonary Disease (COPD) or Asthma GENITOURINARY: Positive Genitourinary Disorders, Kidney Stones and Benign Prostatic Hyperplasia; Negative Renal Disease MUSCULOSKELETAL: Positive Musculoskeletal Disorders and Degenerative Joint Disease ENDOCRINE: Negative Diabetes Mellitus Type 1 or Diabetes Mellitus Type 2 HEMATOLOGIC: Negative Sickle Cell Disease OTHER HISTORY: Negative Blood Transfusions, Blood Transfusion Reaction or Anesthesia Reactions Social History SMOKING STATUS: Current some day smoker SUBSTANCE USE: does not use ED Exam General Limitations: Present no limitations General appearance: Present alert and in no apparent distress Head Head exam: Present atraumatic Eye Eye exam: Present normal appearance, PERRL and EOMI; Absent conjunctival injection ENT ENT exam: Present normal exam, normal oropharynx and mucous membranes moist Neck Neck exam: Present normal inspection, full ROM and trachea midline Chest Chest inspection: Present normal inspection and symmetric chest wall rise Respiratory Respiratory exam: Present normal lung sounds bilaterally; Absent respiratory distress Cardiovascular Cardiovascular exam: Present regular rate, normal rhythm and normal heart sounds Abdominal Exam Abdominal exam: Present soft, normal bowel sounds and other (Inguinal pain); Absent distention, tenderness, guarding, rebound or rigidity Extremities Exam Extremities exam: Present normal inspection and full ROM Back Exam Back exam: Present normal inspection and full ROM Neurological Exam Neurological exam: Present alert, oriented X3 and CN II-XII intact Psychiatric Psychiatric exam: Present normal affect and normal mood Skin Skin exam: Present warm, dry, intact and normal color Course Quality Measures none Orders Category Date Time Status Saini [Urinary Catheter] NOW Care 08/28/24 07:01 Active Saini to Leg Bag Routine Care 08/28/24 07:[address] abdomen pelvis wo con Stat Exams 08/28/24 07:33 Completed CBC Stat Lab 08/28/24 08:08 Completed CMP [Comprehensive Metabolic Panel] Stat Lab 08/28/24 08:08 Completed Ketorolac Inj [Toradol Inj] Med 08/28/24 07:34 Discontinued 30 mg IM X1 ONE Lidocaine 1% 20 ml [Xylocaine 1% 20 ML] Med 08/28/24 09:17 Discontinued 2.1 ml INFL X1 ONE Lidocaine Jelly 2% Urojet [Xylocaine Jelly 2% Urojet] Med 08/28/24 07:01 Discontinued See Dose Instructions TOP X1 ONE cefTRIAXone [Rocephin] Med 08/28/24 09:17 Discontinued 1,000 mg IM X1 ONE Vital Signs Vital signs: Vital Signs Temperature 98.1 F 08/28/24 07:06 Pulse Rate 85 08/28/24 07:06 Respiratory Rate 16 08/28/24 07:06 Blood Pressure 141/79 H 08/28/24 07:06 Pulse Oximetry (%) 98 08/28/24 07:06 Oxygen Delivery Method Room Air 08/28/24 07:06 O2 saturation 98% on room air within normal limits Discharge Plan Plan Patient Disposition: HOME (Self Care) Discharge Disposition comment: Stable Prescriptions/Referrals Prescriptions/Med Rec: New docusate sodium 100 mg capsule 100 mg PO BID 7 Days Qty: 14 0RF polyethylene glycol 3350 [Miralax] 17 gram/dose powder 17 g PO QDAY 3 Days Qty: 119 0RF Enema 19-7 gram/118 mL enema 118 ml RI QDAY PRN (Reason: constipation) Qty: 133 0RF No Action tamsulosin 0.4 mg capsule 0.4 mg PO DAILY sulfamethoxazole-trimethoprim [Bactrim DS] 800-160 mg tablet 1 tab PO BID Qty: 14 0RF sennosides-docusate sodium [Senokot-S] 8.6-50 mg tablet 4 tab-cap PO QDAY PRN (Reason: constipation) Qty: 20 0RF cefdinir 300 mg capsule 300 mg PO BID Qty: 14 0RF magnesium hydroxide [Milk Of Magnesia Concentrated] 2,400 mg/10 mL suspension 30 ml PO QDAY PRN (Reason: constipation) Qty: 60 0RF sulfamethoxazole-trimethoprim 800-160 mg tablet 1 tab PO BID Qty: 14 0RF acetaminophen 500 mg capsule 1,000 mg PO TID Qty: 30 0RF tamsulosin 0.4 mg capsule 0.4 mg PO QDAY Qty: 14 0RF cefdinir 300 mg capsule 300 mg PO BID Qty: 14 0RF fluconazole [Diflucan] 200 mg tablet 200 mg PO QDAY Qty: 7 0RF Referrals: Parminder Lyles MD [Primary Care Provider] - In 1 week Problem List Clinical Impression: Bladder calculi, Constipation Patient/Caregiver Discharge Instructions Additional Instructions: Please follow up with your urologist as discussed for worsening symptoms or concerns return immediately Print Language: Sinhala Stand Alone Forms: Latoya Award Info., Patient Portal Info Letter PA/CECILIA Supervising Physician PA/CECILIA Supervising Physician: Dr Michelle [facility] Narrative [facility] hospital course: 63-year-old male presents emergency department today with concerns for his Saini catheter as well as right inguinal pain and constipation On exam patient well-appearing patient does not appear toxic no acute distress Saini catheter appears to be draining at this time Lab work and imaging obtained Rocephin ordered patient appears to below prior to final disposition Medical Records Reviewed [facility] Meds/Rx Considered, not Ordered Describe details: Given Labs/Rad/Tests considered, not Ordered Describe details: Obtained Chronic Illness/Social Conditions which may negatively complicate care or outcome(s)-explain: None or not applicable EKG EKG not done Lab Interpretation Labs: interpreted by me Imaging Imaging interpretation: see narrative above (Reviewed by me) Medication Administration(s) Medication Administration History Discontinued Medications Ceftriaxone Sodium (Ceftriaxone Sod Inj 1,000 Mg Vial) 1,000 mg IM X1 ONE Stop: 08/28/24 09:18 Ketorolac Tromethamine (Ketorolac Inj 30 Mg/Ml Vial) 30 mg IM X1 ONE Stop: 08/28/24 07:35 Last Admin: 08/28/24 08:00 Dose: 30 mg Documented By: VG Lidocaine HCl (Lidocaine Jelly 2% (Urojet) 10 Ml Tube) 0 ml TOP X1 ONE Stop: 08/28/24 07:02 Last Admin: 08/28/24 07:48 Dose: Not Given Documented By: PIOTR Non-Admin Reason: Cancelled by Provider Lidocaine HCl (Lidocaine Hcl 1% 20 Ml Vial) 2.1 ml INFL X1 ONE Stop: 08/28/24 09:18 Given Diagnosis Differential diagnosis: Interstitial cystitis, UTI, inguinal hernia, abdominal pain, constipation Most likely dx, and/or detailed dx discussion: Constipation, cystitis Dispositon Disposition: Discharge Home
--- NOTE | 2024-08-28 09:30 | PC.NURSE ---
ATTEMPTED TO CALL BACK PT FOR D/C. PT SEEN LEAVING ER BY REGISTRATION.
== END 2024-08-28 09:48 | disposition left against medical advice (07) ==
PROVIDERS: Nurse Practitioner Primary Care; Emergency Provider Emergency Medicine; PCP Family Medicine
DX: N21.0 Calculus in bladder (principal); K59.00 Constipation, unspecified
CPT/HCPCS: 36415; 74176; 80053; 85025; 96372; 99283; J1885

== ENCOUNTER 2024-08-28 23:20 | Emergency (ER) | payer MEDICAID, SELFPAY ==
[2024-08-29 00:17] VITALS: BP 151/83; PULSE 86; RESP 20; TEMP 37.1; O2SAT 100
--- NOTE | 2024-08-29 00:36 | PD.EDRME ---
Rapid Medical Screening Exam RME Arrival date/time: 08/28/24 23:20 Chief Complaint: Urogenital-Male Time Seen by Provider: 08/29/24 00:21 Vital signs: Vital Signs Temperature 98.7 F 08/29/24 00:17 Pulse Rate 86 08/29/24 00:17 Respiratory Rate 20 08/29/24 00:17 Blood Pressure 151/83 H 08/29/24 00:17 Pulse Oximetry (%) 100 08/29/24 00:17 Oxygen Delivery Method Room Air 08/29/24 00:17 Vital signs reviewed by provider: Yes RME Narrative: 63-year-old male presents to the ED with a complaint of constipation and his Melgar catheter needing to be changed. He was seen here earlier this morning and given an injection of Rocephin.
--- NOTE | 2024-08-29 00:55 | PC.NURSE ---
Pt was being moved from E 2 to RME 4. While being moved rooms Pt stated If I cant get this pain under control I am going to go home and hang myself. I responded back to Pt I have to notify someone you said that. Pt then stated I am being serious I am ready to give up on myself. I notified triage nurse Campos, Charge nurse Willow and Provider Ronda what was stated by patient. Provider went back into room to asses Pt to determine if he needs to be on a 5150 hold.
--- NOTE | 2024-08-29 01:43 | PC.NURSE ---
patient refused enema. Notifed provider. Risks and benefits explained by provider.
[2024-08-29] MEDS: KETOROLAC INJ 60 MG/2 ML VIAL 30 MG IM (02:07)
[2024-08-29 02:17] LABS: Collection Type, Urine Catheter; Squamous Epithelial Cell,Urine 0 /hpf (0-5); WBC,Urine 0 /hpf (0-5)
--- NOTE | 2024-08-29 02:22 | PC.NURSE ---
patient eloped at 0212. provider aware.
[2024-08-29 02:29] LABS: Bilirubin,Urine Negative (Negative); Blood,Urine 2+ (Negative); Color,Urine Orange (Lt Yel-Yel); Glucose, Urine Negative (Negative); Ketones,Urine Negative (Negative); Leukocyte Esterase,Urine Positive (Negative); Nitrite,Urine Positive (Negative); PH,Urine 7.5 (5.0-7.0); Protein,Urine 2+ (Neg - Trace); RBC,Urine < 1 /hpf (0-3); Urobilinogen,Urine Negative mg/dL (0.0-1.0)
[2024-08-29 02:30] LABS: Clarity,Urine Turbid (Clear/Hazy)
== END 2024-08-29 02:23 | disposition left against medical advice (07) ==
LOC: SERX 08-29 00:51
PROVIDERS: Physician Assistant; Emergency Provider Emergency Medicine; PCP Family Medicine
DX: K59.00 Constipation, unspecified (principal); Z53.29 Procedure and treatment not carried out because of patient's decision for other reasons
CPT/HCPCS: 81001; 87077; 87086; 87186; 96372; 99281; J1885

== ENCOUNTER 2024-08-30 01:11 | Emergency (ER) | payer MEDICAID, SELFPAY ==
[2024-08-30 01:13] VITALS: BMI 22.9
[2024-08-30 01:41] VITALS: BP 156/79; PULSE 92; RESP 19; TEMP 36.6; O2SAT 98
[2024-08-30] MEDS: KETOROLAC INJ 60 MG/2 ML VIAL IM (02:12)
--- NOTE | 2024-08-30 02:13 | PD.EDMALE ---
ED Male Genitalurinary RME/HPI General Chief complaint: General Adult/Misc Complain Stated complaint: GROIN PAIN Time Seen by Provider: 08/30/24 02:00 Arrival date/time: 08/30/24 01:11 63M with history of BPH and bladder/kidney stones presents to ED for pain meds for his chronic dysuria/bladder stones. Patient was here several times in the past few days for this. CT from 2 days showed large bladder stones. Patient denies testicular pain. Limitations: no limitations Related Data Home Medications ?Medication ?Instructions ?Recorded ?Confirmed tamsulosin 0.4 mg capsule 0.4 mg PO DAILY 01/19/21 07/02/21 Previous Rx's ?Medication ?Instructions ?Recorded sulfamethoxazole 800 1 tab PO BID #14 tabs 04/04/23 mg-trimethoprim 160 mg tablet acetaminophen 500 mg capsule 1,000 mg (2 x 500 mg) PO TID #30 04/23/23 caps tamsulosin 0.4 mg capsule 0.4 mg PO QDAY #14 caps 11/01/23 sulfamethoxazole 800 1 tab PO BID #14 tabs 12/28/23 mg-trimethoprim 160 mg tablet (Bactrim DS) cefdinir 300 mg capsule 300 mg PO BID #14 caps 02/22/24 fluconazole 200 mg tablet 200 mg PO QDAY #7 tabs 02/22/24 (Diflucan) cefdinir 300 mg capsule 300 mg PO BID #14 caps 06/02/24 magnesium hydroxide 2,400 mg/10 mL 30 ml PO QDAY PRN constipation #60 06/02/24 oral suspension (Milk Of Magnesia mL Concentrated) sennosides 8.6 mg-docusate sodium 4 tab-cap (4 x 8.6-50 mg) PO QDAY 06/02/24 50 mg tablet (Senokot-S) PRN constipation #20 tabs docusate sodium 100 mg capsule 100 mg PO BID 7 days #14 caps 08/28/24 polyethylene glycol 3350 17 17 g PO QDAY 3 days #119 grams 08/28/24 gram/dose oral powder (Miralax) sodium phosphates 19 gram-7 118 ml RI QDAY PRN constipation 08/28/24 gram/118 mL enema (Enema) #133 mL Allergies Allergy/AdvReac Type Severity Reaction Status Date / Time No Known Allergies Allergy Verified 08/30/24 01:16 Review of Systems Review of Systems Systems Reviewed: All systems reviewed, normal except as documented Constitutional Constitutional: Reports system reviewed and no additional complaints, except as documented, Denies fever(s) and Denies headache(s) ENT Ears, Nose, Mouth, and Throat: Denies disequilibrium and Denies headache(s) Cardiovascular Cardiovascular: Reports system reviewed and no additional complaints, except as documented, Denies chest pain and Denies dyspnea Respiratory Respiratory: Reports system reviewed and no additional complaints, except as documented, Denies cough and Denies dyspnea Gastrointestinal Gastrointestinal: Reports system reviewed and no additional complaints, except as documented, Denies abdominal pain, Denies nausea and Denies vomiting Genitourinary Genitourinary: Reports as per HPI, Reports difficulty urinating and Reports dysuria Neurologic Neurologic: Reports system reviewed and no additional complaints, except as documented, Denies confusion, Denies disequilibrium and Denies headache(s) Psychiatric Psychiatric: Denies confusion Past Medical History Past Medical History NEUROLOGIC: Negative Neurological Disorders or Seizures CARDIAC: Negative Cardiac Disorders or Congestive Heart Failure RESPIRATORY: Negative Chronic Obstructive Pulmonary Disease (COPD) or Asthma GENITOURINARY: Positive Genitourinary Disorders, Kidney Stones and Benign Prostatic Hyperplasia; Negative Renal Disease MUSCULOSKELETAL: Positive Musculoskeletal Disorders and Degenerative Joint Disease ENDOCRINE: Negative Diabetes Mellitus Type 1 or Diabetes Mellitus Type 2 HEMATOLOGIC: Negative Sickle Cell Disease OTHER HISTORY: Negative Blood Transfusions, Blood Transfusion Reaction or Anesthesia Reactions Social History SMOKING STATUS: Current some day smoker SUBSTANCE USE: does not use ED Exam General Limitations: Present no limitations General appearance: Present alert and in no apparent distress Head Head exam: Present atraumatic Eye Eye exam: Present normal appearance, PERRL and EOMI ENT ENT exam: Present normal exam, normal oropharynx and mucous membranes moist Neck Neck exam: Present normal inspection, full ROM and trachea midline Chest Chest inspection: Present normal inspection and symmetric chest wall rise Respiratory Respiratory exam: Present normal lung sounds bilaterally Cardiovascular Cardiovascular exam: Present regular rate, normal rhythm and normal heart sounds Abdominal Exam Abdominal exam: Present soft and normal bowel sounds Extremities Exam Extremities exam: Present normal inspection and full ROM Back Exam Back exam: Present normal inspection and full ROM Neurological Exam Neurological exam: Present alert, oriented X3 and CN II-XII intact Psychiatric Psychiatric exam: Present normal affect and normal mood Skin Skin exam: Present warm, dry, intact and normal color Course Quality Measures none Orders Category Date Time Status Ketorolac Inj [Toradol Inj] Med 08/30/24 02:01 Discontinued 60 mg IM X1 ONE Vital Signs Vital signs: Vital Signs Temperature 98 F 08/30/24 01:41 Pulse Rate 92 08/30/24 01:41 Respiratory Rate 19 08/30/24 01:41 Blood Pressure 156/79 H 08/30/24 01:41 Pulse Oximetry (%) 98 08/30/24 01:41 Oxygen Delivery Method Room Air 08/30/24 01:41 O2 at 98% on RA and WNLs Urogenital - Male MDM Narrative MDM Narrative:: 63M with history of BPH and bladder/kidney stones presents to ED for pain meds for his chronic dysuria/bladder stones. Patient was here several times in the past few days for this. CT from 2 days showed large bladder stones. Patient denies testicular pain. Physical exam reveals well-appearing male. Patient is afebrile, calm, and alert. Meds and employee counselor. Patient data External records reviewed:: [facility] previous records Clinical information provided by:: patient Social determinants that could affect healthcare access:: none Patient has the following chronic illnesses:: BPH and bladder/kidney stones How is presenting disease/condition affected by chronic disease/condition?: caused by Evaluation data The following diagnostics were reviewed and interpreted by me:: other (specify) (none) Lab and/or radiology exams considered but not ordered:: not ordered Interpretation Summary: n/a Medications / Prescriptions Medications or Prescriptions considered but not ordered:: ordered Medication administrations:: Medication Administration History Discontinued Medications Ketorolac Tromethamine (Ketorolac Inj 60 Mg/2 Ml Vial) 60 mg IM X1 ONE Stop: 08/30/24 02:02 Last Admin: 08/30/24 02:12 Dose: 60 mg Documented By: MESSI above Consultations Consultation(s) initiated? (list below): No Diagnosis Urogenital Male Differential Diagnosis: urinary tract infection, priapism, urethritis, epididymitis, genital herpes simplex, prostatitis, acute retention of urine, inguinal hernia and other (dysuria) Most likely diagnosis given after review of the tests above:: dysuria Admission Indicated Admission indicated?: not indicated Admission Request Was there a request for admission?: No Disposition Plan Disposition Plan: Discharge Discharge Attestation Discharge Attestation: The patient and all family members were given an opportunity to ask questions and understood the discharge instructions. Discharge instructions specifically effects, indications for sooner follow up or return to the emergency department, and the expected course of current diagnosis. Patient condition: Stable Discharge Plan Plan Patient Disposition: HOME (Self Care) Discharge Disposition comment: Stable Prescriptions/Referrals Prescriptions/Med Rec: No Action tamsulosin 0.4 mg capsule 0.4 mg PO DAILY sulfamethoxazole-trimethoprim [Bactrim DS] 800-160 mg tablet 1 tab PO BID Qty: 14 0RF sennosides-docusate sodium [Senokot-S] 8.6-50 mg tablet 4 tab-cap PO QDAY PRN (Reason: constipation) Qty: 20 0RF cefdinir 300 mg capsule 300 mg PO BID Qty: 14 0RF magnesium hydroxide [Milk Of Magnesia Concentrated] 2,400 mg/10 mL suspension 30 ml PO QDAY PRN (Reason: constipation) Qty: 60 0RF docusate sodium 100 mg capsule 100 mg PO BID 7 Days Qty: 14 0RF polyethylene glycol 3350 [Miralax] 17 gram/dose powder 17 g PO QDAY 3 Days Qty: 119 0RF Enema 19-7 gram/118 mL enema 118 ml RI QDAY PRN (Reason: constipation) Qty: 133 0RF sulfamethoxazole-trimethoprim 800-160 mg tablet 1 tab PO BID Qty: 14 0RF acetaminophen 500 mg capsule 1,000 mg PO TID Qty: 30 0RF tamsulosin 0.4 mg capsule 0.4 mg PO QDAY Qty: 14 0RF cefdinir 300 mg capsule 300 mg PO BID Qty: 14 0RF fluconazole [Diflucan] 200 mg tablet 200 mg PO QDAY Qty: 7 0RF Problem List Clinical Impression: Dysuria Patient/Caregiver Discharge Instructions Education Materials: Dysuria Additional Instructions: Please follow-up with PCP within 24-48 hours and return immediately if symptoms worsen. Print Language: Belgian Stand Alone Forms: Patient Portal Info Letter PA/GLASS BENDER Supervising Physician ALPHONSO/CECILIA Supervising Physician: Dr. Pavon
== END 2024-08-30 02:30 | disposition home or self-care (01) ==
LOC: SERX 03:25
PROVIDERS: Emergency Provider Emergency Medicine; PCP Family Medicine
DX: R30.0 Dysuria (principal); N21.0 Calculus in bladder; N40.0 Benign prostatic hyperplasia without lower urinary tract symptoms
CPT/HCPCS: 96372; 99283; J1885

== ENCOUNTER 2024-08-30 19:59 | Emergency (ER) | payer MEDICAID, SELFPAY ==
[2024-08-30 20:01] VITALS: BMI 22.9
[2024-08-30 20:18] VITALS: BP 159/80; PULSE 99; RESP 18; TEMP 36.7; O2SAT 99
[2024-08-30] MEDS: MAGNESIUM CITRATE 300 ML BTL PO (21:23)
[2024-08-30] MEDS: KETOROLAC INJ 60 MG/2 ML VIAL IM (21:24)
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
== END 2024-08-31 01:01 | disposition home or self-care (01) ==
PROVIDERS: Emergency Provider Emergency Medicine; PCP Family Medicine
DX: N21.0 Calculus in bladder (principal); K59.00 Constipation, unspecified
CPT/HCPCS: 96372; 99283; J1885; A9270

== ENCOUNTER 2024-08-31 10:05 | Emergency (ER) | payer MEDICAID, SELFPAY ==
[2024-08-31 10:06] VITALS: BMI 22.9
[2024-08-31 10:18] VITALS: BP 148/84; PULSE 89; RESP 18; TEMP 36.6; O2SAT 100; BMI 22.9
--- NOTE | 2024-08-31 10:37 | PD.EDMALE ---
ED Male Genitalurinary RME/HPI General Chief complaint: Urogenital-Male Stated complaint: NEEDS SAINI CHANGED Time Seen by Provider: 08/31/24 10:24 Source: patient Arrival date/time: 08/31/24 10:05 63-year-old male with a history of BPH, and a chronic urinary catheter presents to the emergency room with a chief complaint of needing his Saini catheter changed. Mode of arrival: ambulatory Limitations: no limitations Related Data Home Medications ?Medication ?Instructions ?Recorded ?Confirmed tamsulosin 0.4 mg capsule 0.4 mg PO DAILY 01/19/21 07/02/21 Previous Rx's ?Medication ?Instructions ?Recorded sulfamethoxazole 800 1 tab PO BID #14 tabs 04/04/23 mg-trimethoprim 160 mg tablet acetaminophen 500 mg capsule 1,000 mg (2 x 500 mg) PO TID #30 04/23/23 caps tamsulosin 0.4 mg capsule 0.4 mg PO QDAY #14 caps 11/01/23 sulfamethoxazole 800 1 tab PO BID #14 tabs 12/28/23 mg-trimethoprim 160 mg tablet (Bactrim DS) cefdinir 300 mg capsule 300 mg PO BID #14 caps 02/22/24 fluconazole 200 mg tablet 200 mg PO QDAY #7 tabs 02/22/24 (Diflucan) cefdinir 300 mg capsule 300 mg PO BID #14 caps 06/02/24 magnesium hydroxide 2,400 mg/10 mL 30 ml PO QDAY PRN constipation #60 06/02/24 oral suspension (Milk Of Magnesia mL Concentrated) sennosides 8.6 mg-docusate sodium 4 tab-cap (4 x 8.6-50 mg) PO QDAY 06/02/24 50 mg tablet (Senokot-S) PRN constipation #20 tabs docusate sodium 100 mg capsule 100 mg PO BID 7 days #14 caps 08/28/24 polyethylene glycol 3350 17 17 g PO QDAY 3 days #119 grams 08/28/24 gram/dose oral powder (Miralax) sodium phosphates 19 gram-7 118 ml KS QDAY PRN constipation 08/28/24 gram/118 mL enema (Enema) #133 mL lactulose 10 gram/15 mL oral 10 g (15 mL) PO QDAY PRN 08/30/24 solution (Constulose) constipation #473 mL sodium phosphates 19 gram-7 118 ml KS QDAY PRN constipation 08/30/24 gram/118 mL enema (Fleet Enema) #266 mL Allergies Allergy/AdvReac Type Severity Reaction Status Date / Time No Known Allergies Allergy Verified 08/31/24 10:07 Review of Systems Review of Systems Systems Reviewed: All systems reviewed, normal except as documented Constitutional Constitutional: Reports system reviewed and no additional complaints, except as documented, Denies fatigue, Denies fever(s), Denies headache(s) and Denies weakness Eyes Eyes: Reports system reviewed and no additional complaints, except as documented, Denies blurry vision and Denies change in vision ENT Ears, Nose, Mouth, and Throat: Reports system reviewed and no additional complaints, except as documented, Denies otalgia, Denies headache(s), Denies nasal congestion, Denies throat swelling and Denies vertigo Cardiovascular Cardiovascular: Reports system reviewed and no additional complaints, except as documented, Denies chest pain, Denies dyspnea and Denies dyspnea on exertion Respiratory Respiratory: Reports system reviewed and no additional complaints, except as documented, Denies chest congestion, Denies cough, Denies dyspnea, Denies dyspnea on exertion and Denies wheezing Gastrointestinal Gastrointestinal: Reports system reviewed and no additional complaints, except as documented, Reports abdominal pain, Reports cramping, Denies nausea and Denies vomiting Genitourinary Genitourinary: Reports system reviewed and no additional complaints, except as documented, Reports difficulty urinating, Denies dysuria and Denies hematuria Musculoskeletal Musculoskeletal: Reports system reviewed and no additional complaints, except as documented and Denies back pain Integumentary/Breasts Skin/Breast: Reports system reviewed and no additional complaints, except as documented and Denies wounds Neurologic Neurologic: Reports system reviewed and no additional complaints, except as documented, Denies confusion, Denies headache(s), Denies lack of coordination, Denies vertigo and Denies weakness Psychiatric Psychiatric: Reports system reviewed and no additional complaints, except as documented, Denies anxiety, Denies confusion, Denies depression, Denies paranoia, Denies suicidal ideation and Denies tactile hallucinations Endocrine Endocrine: Reports system reviewed and no additional complaints, except as documented and Denies fatigue Hematologic/Lymphatic Hematologic/Lymphatic: Reports system reviewed and no additional complaints, except as documented and Denies lymphadenopathy Allergic/Immunologic Allergic/Immunologic: Reports system reviewed and no additional complaints, except as documented, Denies throat swelling, Denies urticaria and Denies wheezing Past Medical History Past Medical History NEUROLOGIC: Negative Neurological Disorders or Seizures CARDIAC: Negative Cardiac Disorders or Congestive Heart Failure RESPIRATORY: Negative Chronic Obstructive Pulmonary Disease (COPD) or Asthma GENITOURINARY: Positive Genitourinary Disorders, Kidney Stones and Benign Prostatic Hyperplasia; Negative Renal Disease MUSCULOSKELETAL: Positive Musculoskeletal Disorders and Degenerative Joint Disease ENDOCRINE: Negative Diabetes Mellitus Type 1 or Diabetes Mellitus Type 2 HEMATOLOGIC: Negative Sickle Cell Disease OTHER HISTORY: Negative Blood Transfusions, Blood Transfusion Reaction or Anesthesia Reactions Social History SMOKING STATUS: Current every day smoker SUBSTANCE USE: does not use ED Exam General Limitations: Present no limitations General appearance: Present alert and in no apparent distress Head Head exam: Present atraumatic Eye Eye exam: Present normal appearance, PERRL and EOMI ENT ENT exam: Present normal exam, normal oropharynx and mucous membranes moist Neck Neck exam: Present normal inspection, full ROM and trachea midline Chest Chest inspection: Present normal inspection and symmetric chest wall rise Respiratory Respiratory exam: Present normal lung sounds bilaterally Cardiovascular Cardiovascular exam: Present regular rate, normal rhythm and normal heart sounds Abdominal Exam Abdominal exam: Present soft and normal bowel sounds exam: Absent testicular tenderness, urethral discharge, scrotal swelling, normal testicular lie or circumcised Extremities Exam Extremities exam: Present normal inspection and full ROM Back Exam Back exam: Present normal inspection and full ROM Neurological Exam Neurological exam: Present alert, oriented X3 and CN II-XII intact Psychiatric Psychiatric exam: Present normal affect and normal mood Skin Skin exam: Present warm, dry, intact and normal color Course Quality Measures none Orders Category Date Time Status Saini [Urinary Catheter, Remove] ONCE Care 08/31/24 10:27 Active Saini [Urinary Catheter] QS Care 08/31/24 10:27 Active Ketorolac Inj [Toradol Inj] Med 08/31/24 10:27 Discontinued 30 mg IM X1 ONE Lidocaine Jelly 2% Urojet [Xylocaine Jelly 2% Urojet] Med 08/31/24 10:27 Discontinued See Dose Instructions TOP X1 ONE cefTRIAXone [Rocephin] 1,000 mg Med 08/31/24 10:27 Discontinued Lidocaine 1% 20 ml [Xylocaine 1% 20 ML] 2.1 ml IM X1 Vital Signs Vital signs: Vital Signs Temperature 97.9 F 08/31/24 10:18 Pulse Rate 89 08/31/24 10:18 Respiratory Rate 18 08/31/24 10:18 Blood Pressure 148/84 H 08/31/24 10:18 Pulse Oximetry (%) 100 08/31/24 10:18 Oxygen Delivery Method Room Air 08/31/24 10:18 Urogenital - Male MDM Narrative MDM Narrative:: 63-year-old male with a history of BPH, and a chronic urinary catheter presents to the emergency room with a chief complaint of needing his Saini catheter changed. Patient is hemodynamically stable and in no apparent distress. Patient has an appointment with his urologist on 09/21/2024 at 10 AM. Patient states he is just here to have a catheter removed and changed. Catheter was changed antibiotics were given and a shot of pain medication was given Patient was discharged and educated to follow-up with primary care provider in the next 24 to 48 hours and return to the emergency room for any evidence of worsening signs or symptoms Patient data External records reviewed:: [facility] previous records Clinical information provided by:: patient Social determinants that could affect healthcare access:: none Patient has the following chronic illnesses:: BPH How is presenting disease/condition affected by chronic disease/condition?: caused by Evaluation data The following diagnostics were reviewed and interpreted by me:: lab results and radiology exam(s) Lab and/or radiology exams considered but not ordered:: Labs and radiology exams considered and ordered Interpretation Summary: N/A Medications / Prescriptions Medications or Prescriptions considered but not ordered:: Medication given Medication administrations:: Medication Administration History Discontinued Medications Ceftriaxone Sodium 1,000 mg/ (Lidocaine HCl 2.1 ml) 0 mg IM X1 ONE Stop: 08/31/24 10:28 Ketorolac Tromethamine (Ketorolac Inj 60 Mg/2 Ml Vial) 30 mg IM X1 ONE Stop: 08/31/24 10:28 Lidocaine HCl (Lidocaine Jelly 2% (Urojet) 10 Ml Tube) 0 ml TOP X1 ONE Stop: 08/31/24 10:28 Medication given Consultations Consultation(s) initiated? (list below): No Diagnosis Urogenital Male Differential Diagnosis: urinary tract infection, urethritis, epididymitis, prostatitis and acute retention of urine Most likely diagnosis given after review of the tests above:: Acute retention of urine Admission Indicated Admission indicated?: not indicated Admission Request Was there a request for admission?: No Disposition Plan Disposition Plan: Discharge Discharge Attestation Discharge Attestation: The patient and all family members were given an opportunity to ask questions and understood the discharge instructions. Discharge instructions specifically effects, indications for sooner follow up or return to the emergency department, and the expected course of current diagnosis. Patient condition: Stable Discharge Plan Plan Patient Disposition: HOME (Self Care) Discharge Disposition comment: Stable Prescriptions/Referrals Prescriptions/Med Rec: No Action tamsulosin 0.4 mg capsule 0.4 mg PO DAILY sulfamethoxazole-trimethoprim [Bactrim DS] 800-160 mg tablet 1 tab PO BID Qty: 14 0RF sennosides-docusate sodium [Senokot-S] 8.6-50 mg tablet 4 tab-cap PO QDAY PRN (Reason: constipation) Qty: 20 0RF cefdinir 300 mg capsule 300 mg PO BID Qty: 14 0RF magnesium hydroxide [Milk Of Magnesia Concentrated] 2,400 mg/10 mL suspension 30 ml PO QDAY PRN (Reason: constipation) Qty: 60 0RF docusate sodium 100 mg capsule 100 mg PO BID 7 Days Qty: 14 0RF polyethylene glycol 3350 [Miralax] 17 gram/dose powder 17 g PO QDAY 3 Days Qty: 119 0RF Enema 19-7 gram/118 mL enema 118 ml KS QDAY PRN (Reason: constipation) Qty: 133 0RF sulfamethoxazole-trimethoprim 800-160 mg tablet 1 tab PO BID Qty: 14 0RF acetaminophen 500 mg capsule 1,000 mg PO TID Qty: 30 0RF tamsulosin 0.4 mg capsule 0.4 mg PO QDAY Qty: 14 0RF cefdinir 300 mg capsule 300 mg PO BID Qty: 14 0RF fluconazole [Diflucan] 200 mg tablet 200 mg PO QDAY Qty: 7 0RF lactulose [Constulose] 10 gram/15 mL solution 10 g PO QDAY PRN (Reason: constipation) Qty: 473 0RF Fleet Enema 19-7 gram/118 mL enema 118 ml KS QDAY PRN (Reason: constipation) Qty: 266 0RF Problem List Clinical Impression: Acute urinary retention Patient/Caregiver Discharge Instructions Education Materials: ED Urinary Retention, Male Additional Instructions: Please follow-up with your primary care provider in the next 24 to 48 hours Please do not miss your appointment with urologist on 09/21/2024 For any evidence of worsening signs or symptoms return to the emergency room immediately Print Language: Welsh Stand Alone Forms: Latoya Award Info., Patient Portal Info Letter PA/MICROCOMPUTER SUPPORT SPECIALIST Supervising Physician ALPHONSO/CECILIA Supervising Physician: Dr Michelle
[2024-08-31] MEDS: LIDOCAINE JELLY 2% (Urojet) 10 ML TUBE TOP (10:42)
[2024-08-31] MEDS: cefTRIAXone 1,000 MG, LIDOCAINE 1% 20 ML 2.1 ML IM (10:43)
[2024-08-31] MEDS: KETOROLAC INJ 60 MG/2 ML VIAL 30 MG IM (10:43)
== END 2024-08-31 12:06 | disposition home or self-care (01) ==
LOC: SERX 11:04
PROVIDERS: Emergency Provider Emergency Medicine; PCP Family Medicine
DX: N40.1 Benign prostatic hyperplasia with lower urinary tract symptoms (principal); R33.8 Other retention of urine
CPT/HCPCS: 51702; 96372; 99283; J0696; J1885; J3490

== ENCOUNTER 2024-09-01 02:23 | Emergency (ER) | payer MEDICAID, SELFPAY ==
[2024-09-01 02:24] VITALS: BMI 22.9
[2024-09-01 03:45] VITALS: BP 157/81; PULSE 87; RESP 16; TEMP 36.7; O2SAT 96
--- NOTE | 2024-09-01 05:29 | PD.EDADDENDU ---
Emergency Room Addendum Addendum Narrative: When I looked for the patient to start my evaluation, I was told the patient eloped. Naun Alexandra MD
== END 2024-09-01 05:00 | disposition left against medical advice (07) ==
LOC: SERX 05:00
PROVIDERS: Emergency Provider Emergency Medicine; PCP Family Medicine
DX: Z53.21 Procedure and treatment not carried out due to patient leaving prior to being seen by health care provider (principal)
CPT/HCPCS: 99281

== ENCOUNTER 2024-09-01 17:42 | Emergency (ER) | payer MEDICAID, SELFPAY ==
[2024-09-01 18:33] VITALS: BP 155/86; PULSE 93; RESP 18; TEMP 36.6; O2SAT 97; BMI 21.2
--- NOTE | 2024-09-01 18:43 | PD.EDMALE ---
ED Male Genitalurinary RME/HPI General Chief complaint: Urogenital-Male Stated complaint: CHRONIC SAINI, HAVING PAIN Time Seen by Provider: 09/01/24 18:39 Source: patient Arrival date/time: 09/01/24 17:42 63-year-old male with a history of BPH and chronic Saini catheter presents to the emergency room with a chief complaint of dysuria and pain around his catheter site. Mode of arrival: ambulatory Limitations: no limitations Related Data Home Medications ?Medication ?Instructions ?Recorded ?Confirmed tamsulosin 0.4 mg capsule 0.4 mg PO DAILY 01/19/21 07/02/21 Previous Rx's ?Medication ?Instructions ?Recorded sulfamethoxazole 800 1 tab PO BID #14 tabs 04/04/23 mg-trimethoprim 160 mg tablet acetaminophen 500 mg capsule 1,000 mg (2 x 500 mg) PO TID #30 04/23/23 caps tamsulosin 0.4 mg capsule 0.4 mg PO QDAY #14 caps 11/01/23 sulfamethoxazole 800 1 tab PO BID #14 tabs 12/28/23 mg-trimethoprim 160 mg tablet (Bactrim DS) cefdinir 300 mg capsule 300 mg PO BID #14 caps 02/22/24 fluconazole 200 mg tablet 200 mg PO QDAY #7 tabs 02/22/24 (Diflucan) cefdinir 300 mg capsule 300 mg PO BID #14 caps 06/02/24 magnesium hydroxide 2,400 mg/10 mL 30 ml PO QDAY PRN constipation #60 06/02/24 oral suspension (Milk Of Magnesia mL Concentrated) sennosides 8.6 mg-docusate sodium 4 tab-cap (4 x 8.6-50 mg) PO QDAY 06/02/24 50 mg tablet (Senokot-S) PRN constipation #20 tabs docusate sodium 100 mg capsule 100 mg PO BID 7 days #14 caps 08/28/24 sodium phosphates 19 gram-7 118 ml [place] QDAY PRN constipation 08/28/24 gram/118 mL enema (Enema) #133 mL lactulose 10 gram/15 mL oral 10 g (15 mL) PO QDAY PRN 08/30/24 solution (Constulose) constipation #473 mL sodium phosphates 19 gram-7 118 ml [place] QDAY PRN constipation 08/30/24 gram/118 mL enema (Fleet Enema) #266 mL Allergies Allergy/AdvReac Type Severity Reaction Status Date / Time No Known Allergies Allergy Verified 09/01/24 17:45 Review of Systems Review of Systems Systems Reviewed: All systems reviewed, normal except as documented Constitutional Constitutional: Reports system reviewed and no additional complaints, except as documented, Denies fatigue, Denies fever(s), Denies headache(s) and Denies weakness Eyes Eyes: Reports system reviewed and no additional complaints, except as documented, Denies blurry vision and Denies change in vision ENT Ears, Nose, Mouth, and Throat: Reports system reviewed and no additional complaints, except as documented, Denies otalgia, Denies headache(s), Denies nasal congestion, Denies throat swelling and Denies vertigo Cardiovascular Cardiovascular: Reports system reviewed and no additional complaints, except as documented, Denies chest pain, Denies dyspnea and Denies dyspnea on exertion Respiratory Respiratory: Reports system reviewed and no additional complaints, except as documented, Denies chest congestion, Denies cough, Denies dyspnea, Denies dyspnea on exertion and Denies wheezing Gastrointestinal Gastrointestinal: Reports system reviewed and no additional complaints, except as documented, Denies abdominal pain, Denies cramping, Denies nausea and Denies vomiting Genitourinary Genitourinary: Reports system reviewed and no additional complaints, except as documented, Reports dysuria and Denies hematuria Musculoskeletal Musculoskeletal: Reports system reviewed and no additional complaints, except as documented and Denies back pain Integumentary/Breasts Skin/Breast: Reports system reviewed and no additional complaints, except as documented and Denies wounds Neurologic Neurologic: Reports system reviewed and no additional complaints, except as documented, Denies confusion, Denies headache(s), Denies lack of coordination, Denies vertigo and Denies weakness Psychiatric Psychiatric: Reports system reviewed and no additional complaints, except as documented, Denies anxiety, Denies confusion, Denies depression, Denies paranoia, Denies suicidal ideation and Denies tactile hallucinations Endocrine Endocrine: Reports system reviewed and no additional complaints, except as documented and Denies fatigue Hematologic/Lymphatic Hematologic/Lymphatic: Reports system reviewed and no additional complaints, except as documented and Denies lymphadenopathy Allergic/Immunologic Allergic/Immunologic: Reports system reviewed and no additional complaints, except as documented, Denies throat swelling, Denies urticaria and Denies wheezing Past Medical History Past Medical History NEUROLOGIC: Negative Neurological Disorders or Seizures CARDIAC: Negative Cardiac Disorders or Congestive Heart Failure RESPIRATORY: Negative Chronic Obstructive Pulmonary Disease (COPD) or Asthma GENITOURINARY: Positive Genitourinary Disorders, Kidney Stones and Benign Prostatic Hyperplasia; Negative Renal Disease MUSCULOSKELETAL: Positive Musculoskeletal Disorders and Degenerative Joint Disease ENDOCRINE: Negative Diabetes Mellitus Type 1 or Diabetes Mellitus Type 2 HEMATOLOGIC: Negative Sickle Cell Disease OTHER HISTORY: Negative Blood Transfusions, Blood Transfusion Reaction or Anesthesia Reactions Social History SMOKING STATUS: Current every day smoker SUBSTANCE USE: does not use ED Exam General Limitations: Present no limitations General appearance: Present alert and in no apparent distress Head Head exam: Present atraumatic Eye Eye exam: Present normal appearance, PERRL and EOMI ENT ENT exam: Present normal exam, normal oropharynx and mucous membranes moist Neck Neck exam: Present normal inspection, full ROM and trachea midline Chest Chest inspection: Present normal inspection and symmetric chest wall rise Respiratory Respiratory exam: Present normal lung sounds bilaterally Cardiovascular Cardiovascular exam: Present regular rate, normal rhythm and normal heart sounds Abdominal Exam Abdominal exam: Present soft and normal bowel sounds; Absent distention, tenderness or guarding Extremities Exam Extremities exam: Present normal inspection and full ROM Back Exam Back exam: Present normal inspection and full ROM Neurological Exam Neurological exam: Present alert, oriented X3 and CN II-XII intact Psychiatric Psychiatric exam: Present normal affect and normal mood Skin Skin exam: Present warm, dry, intact and normal color Course Quality Measures none Orders Category Date Time Status 1,000 mg IM w/Lido* 1% Med 09/01/24 18:43 Ordered cefTRIAXone [Rocephin] 1,000 mg Lidocaine 1% 20 ml [Xylocaine 1% 20 ML] 2.1 ml IM X1 Ketorolac Inj [Toradol Inj] Med 09/01/24 18:43 Once 30 mg IM X1 ONE Vital Signs Vital signs: Vital Signs Temperature 97.9 F 09/01/24 18:33 Pulse Rate 93 09/01/24 18:33 Respiratory Rate 18 09/01/24 18:33 Blood Pressure 155/86 H 09/01/24 18:33 Pulse Oximetry (%) 97 09/01/24 18:33 Oxygen Delivery Method Room Air 09/01/24 18:33 O2 saturation 97% within normal limits Urogenital - Male MDM Narrative MDM Narrative:: 63-year-old male with a history of BPH and chronic Saini catheter presents to the emergency room with a chief complaint of dysuria and pain around his catheter site. Patient is hemodynamically stable and in no apparent distress Physical examination shows tenderness around the catheter site. The catheter is patent and there is no hematuria. The patient states he is just here for pain medication as he has an appointment with his urologist on 09/21/2024. Patient denies any discharge or any blood clots in his urine. Patient was discharged and educated to follow-up with primary care provider in the next 24 to 48 hours and return to the emergency room for any evidence of worsening signs or symptoms Patient data External records reviewed:: [facility] previous records Clinical information provided by:: patient Social determinants that could affect healthcare access:: none Patient has the following chronic illnesses:: BPH How is presenting disease/condition affected by chronic disease/condition?: exacerbated by Evaluation data The following diagnostics were reviewed and interpreted by me:: lab results and radiology exam(s) Lab and/or radiology exams considered but not ordered:: Labs and radiology exams considered and ordered Interpretation Summary: N/A Medications / Prescriptions Medications or Prescriptions considered but not ordered:: Medication given Medication administrations:: Medication given Consultations Consultation(s) initiated? (list below): No Diagnosis Urogenital Male Differential Diagnosis: urinary tract infection, urethritis, prostatitis, acute retention of urine and other (Dysuria) Most likely diagnosis given after review of the tests above:: Dysuria Admission Indicated Admission indicated?: not indicated Admission Request Was there a request for admission?: No Disposition Plan Disposition Plan: Discharge Discharge Attestation Discharge Attestation: The patient and all family members were given an opportunity to ask questions and understood the discharge instructions. Discharge instructions specifically effects, indications for sooner follow up or return to the emergency department, and the expected course of current diagnosis. Patient condition: Stable Discharge Plan Plan Patient Disposition: HOME (Self Care) Discharge Disposition comment: Stable Prescriptions/Referrals Prescriptions/Med Rec: No Action tamsulosin 0.4 mg capsule 0.4 mg PO DAILY sulfamethoxazole-trimethoprim [Bactrim DS] 800-160 mg tablet 1 tab PO BID Qty: 14 0RF sennosides-docusate sodium [Senokot-S] 8.6-50 mg tablet 4 tab-cap PO QDAY PRN (Reason: constipation) Qty: 20 0RF cefdinir 300 mg capsule 300 mg PO BID Qty: 14 0RF magnesium hydroxide [Milk Of Magnesia Concentrated] 2,400 mg/10 mL suspension 30 ml PO QDAY PRN (Reason: constipation) Qty: 60 0RF docusate sodium 100 mg capsule 100 mg PO BID 7 Days Qty: 14 0RF Enema 19-7 gram/118 mL enema 118 ml [place] QDAY PRN (Reason: constipation) Qty: 133 0RF sulfamethoxazole-trimethoprim 800-160 mg tablet 1 tab PO BID Qty: 14 0RF acetaminophen 500 mg capsule 1,000 mg PO TID Qty: 30 0RF tamsulosin 0.4 mg capsule 0.4 mg PO QDAY Qty: 14 0RF cefdinir 300 mg capsule 300 mg PO BID Qty: 14 0RF fluconazole [Diflucan] 200 mg tablet 200 mg PO QDAY Qty: 7 0RF lactulose [Constulose] 10 gram/15 mL solution 10 g PO QDAY PRN (Reason: constipation) Qty: 473 0RF Fleet Enema 19-7 gram/118 mL enema 118 ml [place] QDAY PRN (Reason: constipation) Qty: 266 0RF Problem List Clinical Impression: Dysuria Patient/Caregiver Discharge Instructions Education Materials: Dysuria, ED Dysuria, Uncertain Cause (Adult) Additional Instructions: Please follow-up with your primary care provider in the next 24 to 48 hours Please keep your appointment with urologist on 09/21/2024 For any evidence of worsening signs or symptoms return to the emergency room immediately Print Language: Telugu Stand Alone Forms: Latoya Award Info., Patient Portal Info Letter PA/RADIOCOMMUNICATIONS TECHNICIAN Supervising Physician PA/RADIOCOMMUNICATIONS TECHNICIAN Supervising Physician: Dr. Delaney
[2024-09-01] MEDS: KETOROLAC INJ 60 MG/2 ML VIAL 30 MG IM (18:56)
[2024-09-01] MEDS: cefTRIAXone 1,000 MG, LIDOCAINE 1% 20 ML 2.1 ML IM (18:57)
== END 2024-09-01 19:09 | disposition home or self-care (01) ==
LOC: SERX 19:01
PROVIDERS: Emergency Provider Emergency Medicine; PCP Family Medicine
DX: R30.0 Dysuria (principal); N40.0 Benign prostatic hyperplasia without lower urinary tract symptoms; Z96.0 Presence of urogenital implants
CPT/HCPCS: 96372; 99283; J0696; J1885; J3490

== ENCOUNTER 2024-09-15 12:57 | Emergency (ER) | payer MEDICAID, SELFPAY ==
[2024-09-15 13:08] VITALS: BP 138/91; PULSE 92; RESP 17; TEMP 37; O2SAT 97
--- NOTE | 2024-09-15 13:28 | PD.EDMALE ---
ED Male Genitalurinary RME/HPI General Chief complaint: Urogenital-Male Stated complaint: Urinary burn, turner, kidney stones Time Seen by Provider: 09/15/24 13:03 Arrival date/time: 09/15/24 12:57 63-year-old male presents with history of urinary retention requiring indwelling Turner catheter as well as history of kidney stones presents with concerns for dysuria. Patient requesting an injection of pain medication. Limitations: no limitations Related Data Previous Rx's ?Medication ?Instructions ?Recorded sulfamethoxazole 800 1 tab PO BID 7 days #14 tabs 09/15/24 mg-trimethoprim 160 mg tablet (Bactrim DS) Allergies Allergy/AdvReac Type Severity Reaction Status Date / Time No Known Allergies Allergy Verified 09/17/24 16:34 Review of Systems Review of Systems Systems Reviewed: All systems reviewed, normal except as documented Constitutional Constitutional: Reports system reviewed and no additional complaints, except as documented, Denies fever(s) and Denies headache(s) Eyes Eyes: Reports system reviewed and no additional complaints, except as documented and Denies blurry vision ENT Ears, Nose, Mouth, and Throat: Reports system reviewed and no additional complaints, except as documented, Denies headache(s), Denies nasal congestion and Denies nasal discharge Cardiovascular Cardiovascular: Reports system reviewed and no additional complaints, except as documented, Denies chest pain and Denies dyspnea Respiratory Respiratory: Reports system reviewed and no additional complaints, except as documented, Denies chest congestion, Denies cough and Denies dyspnea Gastrointestinal Gastrointestinal: Reports system reviewed and no additional complaints, except as documented and Denies abdominal pain Integumentary/Breasts Skin/Breast: Reports system reviewed and no additional complaints, except as documented and Denies rash Neurologic Neurologic: Reports system reviewed and no additional complaints, except as documented, Reports as per HPI and Denies headache(s) Past Medical History Past Medical History NEUROLOGIC: Negative Neurological Disorders or Seizures CARDIAC: Negative Cardiac Disorders or Congestive Heart Failure RESPIRATORY: Negative Chronic Obstructive Pulmonary Disease (COPD) or Asthma GENITOURINARY: Positive Genitourinary Disorders, Kidney Stones and Benign Prostatic Hyperplasia; Negative Renal Disease MUSCULOSKELETAL: Positive Musculoskeletal Disorders and Degenerative Joint Disease ENDOCRINE: Negative Diabetes Mellitus Type 1 or Diabetes Mellitus Type 2 HEMATOLOGIC: Negative Sickle Cell Disease OTHER HISTORY: Negative Blood Transfusions, Blood Transfusion Reaction or Anesthesia Reactions Social History SMOKING STATUS: Current every day smoker SUBSTANCE USE: does not use ED Exam General Limitations: Present no limitations General appearance: Present alert and in no apparent distress Head Head exam: Present atraumatic Eye Eye exam: Present normal appearance, PERRL and EOMI ENT ENT exam: Present normal exam, normal oropharynx and mucous membranes moist Neck Neck exam: Present normal inspection, full ROM and trachea midline Chest Chest inspection: Present normal inspection and symmetric chest wall rise Respiratory Respiratory exam: Present normal lung sounds bilaterally Cardiovascular Cardiovascular exam: Present regular rate, normal rhythm and normal heart sounds Abdominal Exam Abdominal exam: Present soft and normal bowel sounds; Absent distention or tenderness exam: Present other (Turner catheter in place) Extremities Exam Extremities exam: Present normal inspection and full ROM Back Exam Back exam: Present normal inspection and full ROM Neurological Exam Neurological exam: Present alert, oriented X3 and CN II-XII intact Psychiatric Psychiatric exam: Present normal affect and normal mood Skin Skin exam: Present warm, dry, intact and normal color Course Quality Measures none Orders Category Date Time Status HYDROcodone*/APAP 5/325 [[place] 5/325] Med 09/15/24 13:14 Discontinued 1 tab PO X1 ONE Ketorolac Inj [Toradol Inj] Med 09/15/24 13:14 Discontinued 30 mg IM X1 ONE Vital Signs Vital signs: Vital Signs Temperature 98.6 F 09/15/24 13:08 Pulse Rate 92 09/15/24 13:08 Respiratory Rate 17 09/15/24 13:08 Blood Pressure 138/91 H 09/15/24 13:08 Pulse Oximetry (%) 97 09/15/24 13:08 Oxygen Delivery Method Room Air 09/15/24 13:08 O2 saturation 97% on room air within normal limits Urogenital - Male MDM Narrative MDM Narrative:: 63-year-old male presents with history of urinary retention requiring indwelling Turner catheter as well as history of kidney stones presents with concerns for dysuria. Patient requesting an injection of pain medication. On exam patient well-appearing patient does not appear ill or toxic in no acute distress Patient given injection of pain medication prescribed Patient is well-appearing reports no nausea vomiting or fever Patient struck to follow-up with his specialist as discussed for worsening symptoms return immediately patient states understanding Patient data External records reviewed:: [facility] previous records Clinical information provided by:: patient Social determinants that could affect healthcare access:: none Patient has the following chronic illnesses:: See history How is presenting disease/condition affected by chronic disease/condition?: caused by Evaluation data The following diagnostics were reviewed and interpreted by me:: lab results and other (specify) Lab and/or radiology exams considered but not ordered:: Consider not ordered Interpretation Summary: N/A Medications / Prescriptions Medications or Prescriptions considered but not ordered:: Given Medication administrations:: Medication Administration History Discontinued Medications Hydrocodone Bitart/Acetaminophen (Hydrocodone/Apap 5/325 Tablet) 1 tab PO X1 ONE Stop: 09/15/24 13:15 Last Admin: 09/15/24 13:44 Dose: 1 tab Documented By: Ketorolac Tromethamine (Ketorolac Inj 30 Mg/Ml Vial) 30 mg IM X1 ONE Stop: 09/15/24 13:15 Last Admin: 09/15/24 13:45 Dose: 30 mg Documented By: Given Consultations Consultation(s) initiated? (list below): No Diagnosis Urogenital Male Differential Diagnosis: urinary tract infection and other (Kidney stones, urinary retention) Most likely diagnosis given after review of the tests above:: Kidney stones, urinary retention Admission Indicated Admission indicated?: not indicated Admission Request Was there a request for admission?: No Disposition Plan Disposition Plan: Discharge Discharge Attestation Discharge Attestation: The patient and all family members were given an opportunity to ask questions and understood the discharge instructions. Discharge instructions specifically effects, indications for sooner follow up or return to the emergency department, and the expected course of current diagnosis. Patient condition: Stable Discharge Plan Plan Patient Disposition: HOME (Self Care) Discharge Disposition comment: Stable Prescriptions/Referrals Prescriptions/Med Rec: New sulfamethoxazole-trimethoprim [Bactrim DS] 800-160 mg tablet 1 tab PO BID 7 Days Qty: 14 0RF Discontinued tamsulosin 0.4 mg capsule 0.4 mg PO DAILY sulfamethoxazole-trimethoprim [Bactrim DS] 800-160 mg tablet 1 tab PO BID Qty: 14 0RF sennosides-docusate sodium [Senokot-S] 8.6-50 mg tablet 4 tab-cap PO QDAY PRN (Reason: constipation) Qty: 20 0RF cefdinir 300 mg capsule 300 mg PO BID Qty: 14 0RF magnesium hydroxide [Milk Of Magnesia Concentrated] 2,400 mg/10 mL suspension 30 ml PO QDAY PRN (Reason: constipation) Qty: 60 0RF Enema 19-7 gram/118 mL enema 118 ml [place] QDAY PRN (Reason: constipation) Qty: 133 0RF sulfamethoxazole-trimethoprim 800-160 mg tablet 1 tab PO BID Qty: 14 0RF acetaminophen 500 mg capsule 1,000 mg PO TID Qty: 30 0RF tamsulosin 0.4 mg capsule 0.4 mg PO QDAY Qty: 14 0RF cefdinir 300 mg capsule 300 mg PO BID Qty: 14 0RF fluconazole [Diflucan] 200 mg tablet 200 mg PO QDAY Qty: 7 0RF lactulose [Constulose] 10 gram/15 mL solution 10 g PO QDAY PRN (Reason: constipation) Qty: 473 0RF Fleet Enema 19-7 gram/118 mL enema 118 ml [place] QDAY PRN (Reason: constipation) Qty: 266 0RF Problem List Clinical Impression: History of urinary retention, Dysuria Patient/Caregiver Discharge Instructions Education Materials: Dysuria Additional Instructions: Please follow up with your primary care doctor in the next 24-48hrs for any worsening symptoms return here immediately Print Language: Guatemalan Stand Alone Forms: Latoya Award Info., Patient Portal Info Letter PA/CABLE CUTTER AND SWAGER Supervising Physician PA/CABLE CUTTER AND SWAGER Supervising Physician: Dr noel
[2024-09-15] MEDS: HYDROcodone/APAP 5/325 TABLET 1 TAB PO (13:44)
[2024-09-15] MEDS: KETOROLAC INJ 30 MG/ML VIAL IM (13:45)
== END 2024-09-15 15:41 | disposition home or self-care (01) ==
LOC: SERX 13:21
PROVIDERS: Emergency Provider Emergency Medicine; PCP Family Medicine
DX: R33.9 Retention of urine, unspecified (principal); Z87.442 Personal history of urinary calculi; Z96.0 Presence of urogenital implants
CPT/HCPCS: 96372; 99283; J1885; A9270

== ENCOUNTER 2024-09-16 13:17 | Emergency (ER) | payer MEDICAID, SELFPAY ==
[2024-09-16 13:57] VITALS: BP 141/81; PULSE 78; RESP 16; TEMP 36.7; O2SAT 99; BMI 22.9
--- NOTE | 2024-09-16 14:20 | PD.EDMALE ---
ED Male Genitalurinary RME/HPI General Chief complaint: Urogenital-Male Stated complaint: Melgar draining but burning, SOB Time Seen by Provider: 09/16/24 13:20 Arrival date/time: 09/16/24 13:17 This is a 63-year-old male that comes in with complaints of Melgar catheter is burning. patient has a history of kidney stones. Patient had a catheter placed not too long ago and he states it is draining but he is having burning with urination. Related Data Previous Rx's ?Medication ?Instructions ?Recorded sulfamethoxazole 800 1 tab PO BID 7 days #14 tabs 09/15/24 mg-trimethoprim 160 mg tablet (Bactrim DS) Allergies Allergy/AdvReac Type Severity Reaction Status Date / Time No Known Allergies Allergy Verified 09/16/24 13:21 Course Orders Category Date Time Status CBC Stat Lab 09/16/24 14:14 Ordered Comprehensive Metabolic Panel Stat Lab 09/16/24 14:14 Ordered Urinalysis, C/S if Indicated Stat Lab 09/16/24 14:14 Ordered Ketorolac Inj [Toradol Inj] Med 09/16/24 14:14 Discontinued 60 mg IM X1 ONE Vital Signs Vital signs: Vital Signs Temperature 98.1 F 09/16/24 13:57 Pulse Rate 78 09/16/24 13:57 Respiratory Rate 16 09/16/24 13:57 Blood Pressure 141/81 H 09/16/24 13:57 Pulse Oximetry (%) 99 09/16/24 13:57 Oxygen Delivery Method Room Air 09/16/24 13:57 Urogenital - Male Medications / Prescriptions Medication administrations:: Medication Administration History Discontinued Medications Ketorolac Tromethamine (Ketorolac Inj 60 Mg/2 Ml Vial) 60 mg IM X1 ONE Stop: 09/16/24 14:15 Discharge Plan Prescriptions/Referrals Prescriptions/Med Rec: No Action sulfamethoxazole-trimethoprim [Bactrim DS] 800-160 mg tablet 1 tab PO BID 7 Days Qty: 14 0RF Patient/Caregiver Discharge Instructions Print Language: Bengali
[2024-09-16] MEDS: KETOROLAC INJ 60 MG/2 ML VIAL IM (14:35)
[2024-09-16 14:57] LABS: Basophils # (Auto) 0.1 Thou/mm3 (0.0-0.2); Basophils % (Auto) 1 % (0-2.5); Eosinophils # (Auto) 0.3 Thou/mm3 (0.0-0.5); Eosinophils % (Auto) 5 % (0-10); Hematocrit 39.5 % (41.0-53.0); Hemoglobin 13.5 g/dL (13.5-16.0); Immature Granulocytes % (Auto) 0 % (0-0); Immature Granulocytes Auto 0.02 Thou/mm3 (0.00-0.00); Lymphocytes # (Auto) 1.3 Thou/mm3 (1.0-4.8); Lymphocytes % (Auto) 19 % (10-50); Mean Corpuscular HGB Conc 34.2 g/dl (31.0-37.0); Mean Corpuscular Hemoglobin 29.4 pg (25.0-35.0); Mean Corpuscular Volume 86 fL (80-100); Monocytes # (Auto) 0.7 Thou/mm3 (0.0-0.8); Monocytes % (Auto) 11 % (0-12); Neutrophils # (Auto) 4.1 Thou/mm3 (1.8-7.7); Neutrophils % (Auto) 63 % (37-80); Nucleated Red Blood Cell % 0 /100 WBC (0); Platelet Count 357 Thou/mm3 (140-440); RDW Standard Deviation 46.5 fL (35.1-43.9); Red Blood Count 4.59 Miln/mm3 (4.50-5.90); White Blood Count 6.4 Thou/mm3 (3.8-10.6)
[2024-09-16 15:05] LABS: Alanine Aminotransferase 14 U/L (10-49); Alkaline Phosphatase 80 U/L (46-116); Anion Gap 7 (7-16); Aspartate Amino Transferase 18 U/L (0-34); BUN/Creatinine Ratio 17 Ratio (12-20); Bilirubin,Total 0.2 mg/dL (0.3-1.2); Blood Urea Nitrogen 15 mg/dL (9-23); Calcium 9.1 mg/dL (8.3-10.6); Calcium (Corrected) 9.1 mg/dL (8.5-10.1); Chloride 105 mMol/L (98-107); Creatinine (Component) 0.9 mg/dL (0.6-1.3); Estimated Creatinine Clearance 88.5 mL/min (>60); Glucose 98 mg/dL (74-106); Osmolality,Calculated 283 (275-295); Potassium 4.6 mMol/L (3.4-5.1); Sodium 142 mMol/L (136-145); eGFR > 60 See Note
--- NOTE | 2024-09-16 15:51 | PC.NURSE ---
no answer x 1 at 1550. checked outside and lobby.
--- NOTE | 2024-09-16 16:16 | PC.NURSE ---
no answer x 2 at 1615. checked outside and lobby.
--- NOTE | 2024-09-16 16:49 | PC.NURSE ---
no answer x 3 at 1648. checked outside and lobby. pt eloped. notified provider
--- NOTE | 2024-09-16 17:31 | PD.EDRME ---
Rapid Medical Screening Exam RME Arrival date/time: 09/16/24 13:17 This is a 63-year-old male that comes in with complaints of Melgar catheter is burning. patient has a history of kidney stones. Patient had a catheter placed not too long ago and he states it is draining but he is having burning with urination. I have greeted and performed a focused initial assessment of this patient. Initial appropriate labs ordered at this time. A comprehensive ED assessment and evaluation of the patient and analysis of all test and completion of medical decision making process will be conducted by additional ED provider. Chief Complaint: Urogenital-Male Time Seen by Provider: 09/16/24 13:20 Vital signs: Vital Signs Temperature 98.1 F 09/16/24 13:57 Pulse Rate 78 09/16/24 13:57 Respiratory Rate 16 09/16/24 13:57 Blood Pressure 141/81 H 09/16/24 13:57 Pulse Oximetry (%) 99 09/16/24 13:57 Oxygen Delivery Method Room Air 09/16/24 13:57
== END 2024-09-16 16:51 | disposition left against medical advice (07) ==
LOC: SERX 14:25
PROVIDERS: Nurse Practitioner Family; Emergency Provider Emergency Medicine; PCP Family Medicine
DX: R30.9 Painful micturition, unspecified (principal); Z96.0 Presence of urogenital implants; Z53.29 Procedure and treatment not carried out because of patient's decision for other reasons
CPT/HCPCS: 36415; 80053; 80061; 81001; 85025; 96372; 99281; J1885

== ENCOUNTER 2024-09-17 16:32 | Emergency (ER) | payer MEDICAID, SELFPAY ==
[2024-09-17 16:40] VITALS: BP 184/83; PULSE 98; RESP 17; TEMP 36.7; O2SAT 98
[2024-09-17 16:41] VITALS: BMI 22.9
--- NOTE | 2024-09-17 16:46 | PD.EDMALE ---
ED Male Genitalurinary RME/HPI General Chief complaint: Urogenital-Male Stated complaint: NEEDS SAINI CHANGED Time Seen by Provider: 09/17/24 16:33 Arrival date/time: 09/17/24 16:32 This is a 63-year-old male that comes in with complaints of needing Saini catheter change. Patient states that he thinks that urinary catheter is clogged. Patient states the catheter is also burning and not draining. Related Data Previous Rx's ?Medication ?Instructions ?Recorded hydrocodone 5 mg-acetaminophen 325 1 tab PO BID PRN pain #10 tabs 09/20/24 mg tablet ibuprofen 800 mg tablet 800 mg PO TID PRN pain #30 tabs 09/20/24 Allergies Allergy/AdvReac Type Severity Reaction Status Date / Time No Known Allergies Allergy Verified 09/20/24 12:57 Review of Systems Review of Systems Systems Reviewed: All systems reviewed, normal except as documented Past Medical History Past Medical History NEUROLOGIC: Negative Neurological Disorders or Seizures CARDIAC: Negative Cardiac Disorders or Congestive Heart Failure RESPIRATORY: Negative Chronic Obstructive Pulmonary Disease (COPD) or Asthma GENITOURINARY: Positive Genitourinary Disorders, Kidney Stones and Benign Prostatic Hyperplasia; Negative Renal Disease MUSCULOSKELETAL: Positive Musculoskeletal Disorders and Degenerative Joint Disease ENDOCRINE: Negative Diabetes Mellitus Type 1 or Diabetes Mellitus Type 2 HEMATOLOGIC: Negative Sickle Cell Disease OTHER HISTORY: Negative Blood Transfusions, Blood Transfusion Reaction or Anesthesia Reactions Social History SMOKING STATUS: Current every day smoker SUBSTANCE USE: does not use ED Exam Narrative Physical exam: VITAL SIGNS: Reviewed. GENERAL APPEARANCE: Alert and interactive, follows commands, no acute distress HEAD AND FACE: Non-traumatic. ENT: PERRL, conjuctiva pink and clear, eyelid no trauma, Mucous membrane moist. NECK: Supple, nontender, no nuchal rigidity. CHEST: No tenderness, no crepitus, no paradoxical movement, no retractions. LUNGS: breathing even and unlabored HEART: Regular rate, cap refill less than 2 seconds ABDOMEN: Soft, nondistended, no guarding, nontender, no rebound, no masses, NEUROLOGICAL: Gross motor function intact sensory function intact, Appropriate for age. MUSCULOSKELETAL: low back nontender, full range of motion. EXTREMITIES: No redness no swelling no skin breakdown on bilateral foot and leg. Distal neurovascular status intact bilateral foot SKIN: Color pink, dry, no rash, no lacerations, no abrasions, no contusions. Course Quality Measures none Orders Category Date Time Status Saini [Urinary Catheter, Remove] ONCE Care 09/17/24 16:51 Completed Saini [Urinary Catheter] QS Care 09/17/24 16:51 Completed Saini to Leg Bag Routine Care 09/17/24 16:51 Ordered Ketorolac Inj [Toradol Inj] Med 09/17/24 17:14 Discontinued 60 mg IM X1 ONE Lidocaine Jelly 2% Urojet [Xylocaine Jelly 2% Urojet] Med 09/17/24 16:51 Discontinued See Dose Instructions TOP X1 ONE cefTRIAXone [Rocephin] 1,000 mg Med 09/17/24 17:14 Discontinued Lidocaine 1% 20 ml [Xylocaine 1% 20 ML] 2.1 ml IM X1 Vital Signs Vital signs: Vital Signs Temperature 98.0 F 09/17/24 16:40 Pulse Rate 98 09/17/24 16:40 Respiratory Rate 17 09/17/24 16:40 Blood Pressure 184/83 H 09/17/24 16:40 Pulse Oximetry (%) 98 09/17/24 16:40 Oxygen Delivery Method Room Air 09/17/24 16:40 Urogenital - Male MDM Narrative MDM Narrative:: pt states he has a urology appoint 09/21/2024. Spoke to patient at length. Saini catheter changed. Patient's urine looks cloudy with foul smelling. Patient states he is already on antibiotics but I will give him a dose of Rocephin. Patient is also requesting pain medication. Will give patient a Toradol shot. Patient verbalized that he will follow-up with his urologist as scheduled. Come back to the emergency room symptoms change or worsen. Patient data External records reviewed:: [facility] previous records Clinical information provided by:: patient Social determinants that could affect healthcare access:: none Patient has the following chronic illnesses:: see hpi How is presenting disease/condition affected by chronic disease/condition?: no chronic disease Evaluation data The following diagnostics were reviewed and interpreted by me:: lab results Lab and/or radiology exams considered but not ordered:: none Interpretation Summary: see note Medications / Prescriptions Medications or Prescriptions considered but not ordered:: none Medication administrations:: Medication Administration History Discontinued Medications Ceftriaxone Sodium 1,000 mg/ (Lidocaine HCl 2.1 ml) 0 mg IM X1 ONE Stop: 09/17/24 17:15 Last Admin: 09/17/24 17:26 Dose: 1,000 mg Documented By: VASU Comments: 2.1 ml lido Ketorolac Tromethamine (Ketorolac Inj 60 Mg/2 Ml Vial) 60 mg IM X1 ONE Stop: 09/17/24 17:15 Last Admin: 09/17/24 17:26 Dose: 60 mg Documented By: VASU Lidocaine HCl (Lidocaine Jelly 2% (Urojet) 10 Ml Tube) 0 ml TOP X1 ONE Stop: 09/17/24 16:52 Last Admin: 09/17/24 17:02 Dose: 5 ml Documented By: VASU see mar Consultations Consultation(s) initiated? (list below): No Diagnosis Urogenital Male Differential Diagnosis: urinary tract infection, urethritis, epididymitis, prostatitis and acute retention of urine Most likely diagnosis given after review of the tests above:: urinary retension, uti Admission Indicated Admission indicated?: not indicated Admission Request Was there a request for admission?: No Disposition Plan Disposition Plan: Discharge Discharge Attestation Discharge Attestation: The patient and all family members were given an opportunity to ask questions and understood the discharge instructions. Discharge instructions specifically effects, indications for sooner follow up or return to the emergency department, and the expected course of current diagnosis. Patient condition: Stable Discharge Plan Plan Patient Disposition: HOME (Self Care) Patient condition on transfer: Stable Prescriptions/Referrals Prescriptions/Med Rec: No Action ibuprofen 800 mg tablet 800 mg PO TID PRN (Reason: pain) Qty: 30 0RF hydrocodone-acetaminophen 5-325 mg tablet 1 tab PO BID MDD 10 PRN (Reason: pain) Qty: 10 0RF Referrals: Parminder Lyles MD [Primary Care Provider] - In 1 week Problem List Clinical Impression: Encounter for assessment of Saini catheter, Encounter for Saini catheter removal, Encounter for Saini catheter replacement Patient/Caregiver Discharge Instructions Discharge Activity: activity as tolerated Education Materials: ED Bladder Infection, Male (Adult) Additional Instructions: Follow up with primary provider in 1-2 days. Come back to ED if symptoms change or worsen keep scheduled appointment with urologist. Print Language: Sammarinese Stand Alone Forms: Latoya Award Info., Patient Portal Info Letter PA/CECILIA Supervising Physician PA/CECILIA Supervising Physician: jose
[2024-09-17] MEDS: LIDOCAINE JELLY 2% (Urojet) 10 ML TUBE TOP (17:02)
[2024-09-17] MEDS: KETOROLAC INJ 60 MG/2 ML VIAL IM (17:26)
[2024-09-17] MEDS: cefTRIAXone 1,000 MG, LIDOCAINE 1% 20 ML 2.1 ML IM (17:26)
== END 2024-09-17 17:41 | disposition home or self-care (01) ==
PROVIDERS: Emergency Provider Family Medicine; PCP Family Medicine
DX: Z46.6 Encounter for fitting and adjustment of urinary device (principal)
CPT/HCPCS: 51702; 81001; 96372; 99283; A4314; J0696; J1885; J3490

== ENCOUNTER 2024-09-18 13:32 | Emergency (ER) | payer MEDICAID, SELFPAY ==
[2024-09-18 13:33] VITALS: BMI 22.9
[2024-09-18 14:16] VITALS: BP 139/79; PULSE 90; RESP 18; TEMP 36.7; O2SAT 97
--- NOTE | 2024-09-18 14:18 | PD.EDRME ---
Rapid Medical Screening Exam RME Arrival date/time: 09/18/24 13:32 Chief Complaint: General Adult/Misc Complain Time Seen by Provider: 09/18/24 13:49 Vital signs: Vital Signs Temperature 98.0 F 09/18/24 14:16 Pulse Rate 90 09/18/24 14:16 Respiratory Rate 18 09/18/24 14:16 Blood Pressure 139/79 H 09/18/24 14:16 Pulse Oximetry (%) 97 09/18/24 14:16 Oxygen Delivery Method Room Air 09/18/24 14:16 RME Narrative: Has going pain at his turner site. This was changed yesterday. Has a history of outlet obstruction. Turner is patent today.
--- NOTE | 2024-09-18 14:40 | EDNOTE_ITS ---
ED General RME/HPI General Chief complaint: General Adult/Misc Complain Stated complaint: PAIN FROM TURNER; WANTS PAIN MED Time Seen by Provider: 09/18/24 13:49 Arrival date/time: 09/18/24 13:32 63-year-old male well-known to me presents to the emergency department today for complaints of pain at his Turner site. Typically patient reports that he has his Turner catheter changed he does not want his catheter changed he reports he just wants a shot of pain medication would like to go home after that Limitations: no limitations RME / HPI RME / HPI narrative: Has going pain at his turner site. This was changed yesterday. Has a history of outlet obstruction. Turner is patent today. Related Data Previous Rx's ?Medication ?Instructions ?Recorded sulfamethoxazole 800 1 tab PO BID 7 days #14 tabs 09/15/24 mg-trimethoprim 160 mg tablet (Bactrim DS) Allergies Allergy/AdvReac Type Severity Reaction Status Date / Time No Known Allergies Allergy Verified 09/18/24 13:35 Review of Systems Review of Systems Systems Reviewed: All systems reviewed, normal except as documented Constitutional Constitutional: Reports system reviewed and no additional complaints, except as documented, Denies fever(s) and Denies headache(s) Eyes Eyes: Reports system reviewed and no additional complaints, except as documented and Denies blurry vision ENT Ears, Nose, Mouth, and Throat: Reports system reviewed and no additional complaints, except as documented, Denies headache(s), Denies nasal congestion and Denies nasal discharge Cardiovascular Cardiovascular: Reports system reviewed and no additional complaints, except as documented, Denies chest pain and Denies dyspnea Respiratory Respiratory: Reports system reviewed and no additional complaints, except as documented, Denies chest congestion, Denies cough and Denies dyspnea Gastrointestinal Gastrointestinal: Reports system reviewed and no additional complaints, except as documented and Denies abdominal pain Genitourinary Genitourinary: Reports system reviewed and no additional complaints, except as documented and Reports other (Turner catheter in place, burning) Integumentary/Breasts Skin/Breast: Reports system reviewed and no additional complaints, except as documented and Denies rash Neurologic Neurologic: Reports system reviewed and no additional complaints, except as documented, Reports as per HPI and Denies headache(s) Past Medical History Past Medical History NEUROLOGIC: Negative Neurological Disorders or Seizures CARDIAC: Negative Cardiac Disorders or Congestive Heart Failure RESPIRATORY: Negative Chronic Obstructive Pulmonary Disease (COPD) or Asthma GENITOURINARY: Positive Genitourinary Disorders, Kidney Stones and Benign Prostatic Hyperplasia; Negative Renal Disease MUSCULOSKELETAL: Positive Musculoskeletal Disorders and Degenerative Joint Disease ENDOCRINE: Negative Diabetes Mellitus Type 1 or Diabetes Mellitus Type 2 HEMATOLOGIC: Negative Sickle Cell Disease OTHER HISTORY: Negative Blood Transfusions, Blood Transfusion Reaction or Anesthesia Reactions Social History SMOKING STATUS: Current every day smoker SUBSTANCE USE: does not use ED Exam General Limitations: Present no limitations General appearance: Present alert and in no apparent distress Head Head exam: Present atraumatic Eye Eye exam: Present normal appearance, PERRL and EOMI ENT ENT exam: Present normal exam, normal oropharynx and mucous membranes moist Neck Neck exam: Present normal inspection, full ROM and trachea midline Chest Chest inspection: Present normal inspection and symmetric chest wall rise Respiratory Respiratory exam: Present normal lung sounds bilaterally Cardiovascular Cardiovascular exam: Present regular rate, normal rhythm and normal heart sounds Abdominal Exam Abdominal exam: Present soft and normal bowel sounds; Absent distention, tenderness, guarding, rebound or rigidity Extremities Exam Extremities exam: Present normal inspection and full ROM Back Exam Back exam: Present normal inspection and full ROM Neurological Exam Neurological exam: Present alert, oriented X3 and CN II-XII intact Psychiatric Psychiatric exam: Present normal affect and normal mood Skin Skin exam: Present warm, dry, intact and normal color Course Quality Measures none Orders Category Date Time Status Ketorolac Inj [Toradol Inj] Med 09/18/24 14:52 Discontinued 30 mg IM X1 ONE Vital Signs Vital signs: Vital Signs Temperature 98.0 F 09/18/24 14:16 Pulse Rate 90 09/18/24 14:16 Respiratory Rate 18 09/18/24 14:16 Blood Pressure 139/79 H 09/18/24 14:16 Pulse Oximetry (%) 97 09/18/24 14:16 Oxygen Delivery Method Room Air 09/18/24 14:16 O2 saturation 97% room air within normal limits Discharge Plan Plan Patient Disposition: HOME (Self Care) Discharge Disposition comment: Stable Prescriptions/Referrals Prescriptions/Med Rec: No Action sulfamethoxazole-trimethoprim [Bactrim DS] 800-160 mg tablet 1 tab PO BID 7 Days Qty: 14 0RF Referrals: No Primary/Family,Physician [Primary Care Provider] - 09/19/24 Problem List Clinical Impression: Acute on chronic retention of urine Patient/Caregiver Discharge Instructions Education Materials: ED Turner Catheter, Care Additional Instructions: Please follow up with your primary care doctor in the next 24-48hrs for any worsening symptoms return here immediately Print Language: Portuguese Stand Alone Forms: Latoya Award Info., Patient Portal Info Letter PA/CHOREOGRAPHY DIRECTOR Supervising Physician PA/CHOREOGRAPHY DIRECTOR Supervising Physician: Dr. garcia [facility] Narrative [facility] hospital course: 63-year-old male well-known to me presents to the emergency department today for complaints of pain at his Turner site. Typically patient reports that he has his Turner catheter changed he does not want his catheter changed he reports he just wants a shot of pain medication would like to go home after that On exam patient well-appearing patient does not appear ill or toxic in no acute distress Lab work and imaging has been completed multiple times patient reports no fever nausea or vomiting at this time Patient given injection of Toradol per his request Patient reports he is a follow-up appoint with his primary care doctor this week Explained to the patient should symptoms persist or worsen if he develops any nausea vomiting fever or significant pain to return immediately Clinical Information Provided by patient Medical Records Reviewed None Meds/Rx Considered, not Ordered None Labs/Rad/Tests considered, not Ordered None Chronic Illness/Social Conditions which may negatively complicate care or outcome(s)-explain: None or not applicable EKG EKG not done Lab Interpretation Labs: none Imaging Imaging interpretation: none Medication Administration(s) Medication Administration History Discontinued Medications Ketorolac Tromethamine (Ketorolac Inj 30 Mg/Ml Vial) 30 mg IM X1 ONE Stop: 09/18/24 14:53 Last Admin: 09/18/24 15:17 Dose: 30 mg Documented By: SCARLET Given Diagnosis Differential diagnosis: Dysuria, hematuria, acute on chronic urinary retention Most likely dx, and/or detailed dx discussion: Urinary retention Dispositon Disposition: Discharge Home
[2024-09-18 15:17] VITALS: TEMP 36.6
[2024-09-18] MEDS: KETOROLAC INJ 30 MG/ML VIAL IM (15:17)
== END 2024-09-18 15:18 | disposition home or self-care (01) ==
PROVIDERS: Emergency Provider Family Medicine
DX: N40.1 Benign prostatic hyperplasia with lower urinary tract symptoms (principal); R33.8 Other retention of urine; Z96.0 Presence of urogenital implants
CPT/HCPCS: 81001; 96372; 99283; J1885

== ENCOUNTER 2024-09-20 12:54 | Emergency (ER) | payer MEDICAID, SELFPAY ==
[2024-09-20 13:03] VITALS: BP 148/81; PULSE 87; RESP 18; TEMP 36.7; O2SAT 98; BMI 22.9
[2024-09-20] MEDS: KETOROLAC INJ 30 MG/ML VIAL IM (13:17)
[2024-09-20] MEDS: HYDROcodone/APAP 5/325 TABLET 1 TAB PO (13:17)
--- NOTE | 2024-09-20 17:14 | EDNOTE_ITS ---
ED Male Genitalurinary RME/HPI General Chief complaint: Urogenital-Male Stated complaint: Catheter draining and burning Time Seen by Provider: 09/20/24 13:04 Arrival date/time: 09/20/24 12:54 63-year-old male presents emergency department today for complaints of burning at the tip of his penis at the catheter site. Patient reports his catheter is draining well reports no abdominal pain Limitations: no limitations Related Data Previous Rx's ?Medication ?Instructions ?Recorded sulfamethoxazole 800 1 tab PO BID 7 days #14 tabs 09/15/24 mg-trimethoprim 160 mg tablet (Bactrim DS) hydrocodone 5 mg-acetaminophen 325 1 tab PO BID PRN pa in #10 tabs 09/20/24 mg tablet ibuprofen 800 mg tablet 800 mg PO TID PRN pain #30 t abs 09/20/24 Allergies Allergy/AdvReac Type Severity Reaction Status Date / Time No Known Allergies Allergy Verified 09/20/24 12:57 Review of Systems Review of Systems Systems Reviewed: All systems reviewed, normal except as documented Constitutional Constitutional: Reports system reviewed and no additional complaints, except as documented, Denies fever(s) and Denies headache(s) Eyes Eyes: Reports system reviewed and no additional complaints, except as documented and Denies blurry vision ENT Ears, Nose, Mouth, and Throat: Reports system reviewed and no additional complaints, except as documented, Denies headache(s), Denies nasal congestion and Denies nasal discharge Cardiovascular Cardiovascular: Reports system reviewed and no additional complaints, except as documented, Denies chest pain and Denies dyspnea Respiratory Respiratory: Reports system reviewed and no additional complaints, except as documented, Denies chest congestion, Denies cough and Denies dyspnea Gastrointestinal Gastrointestinal: Reports system reviewed and no additional complaints, except as documented and Denies abdominal pain Genitourinary Genitourinary: Reports system reviewed and no additional complaints, except as documented, Denies dysuria, Denies erectile dysfunction, Denies testicular mass, Denies testicular pain and Reports other (Penile pain) Integumentary/Breasts Skin/Breast: Reports system reviewed and no additional complaints, except as documented and Denies rash Neurologic Neurologic: Reports system reviewed and no additional complaints, except as documented, Reports as per HPI and Denies headache(s) Past Medical History Past Medical History NEUROLOGIC: Negative Neurological Disorders or Seizures CARDIAC: Negative Cardiac Disorders or Congestive Heart Failure RESPIRATORY: Negative Chronic Obstructive Pulmonary Disease (COPD) or Asthma GENITOURINARY: Positive Genitourinary Disorders, Kidney Stones and Benign Prostatic Hyperplasia; Negative Renal Disease MUSCULOSKELETAL: Positive Musculoskeletal Disorders and Degenerative Joint Disease ENDOCRINE: Negative Diabetes Mellitus Type 1 or Diabetes Mellitus Type 2 HEMATOLOGIC: Negative Sickle Cell Disease OTHER HISTORY: Negative Blood Transfusions, Blood Transfusion Reaction or Anesthesia Reactions Social History SMOKING STATUS: Current every day smoker SUBSTANCE USE: does not use ED Exam General Limitations: Present no limitations General appearance: Present alert and in no apparent distress Head Head exam: Present atraumatic, normocephalic and normal inspection Eye Eye exam: Present normal appearance, PERRL and EOMI; Absent conjunctival injection ENT ENT exam: Present normal exam, normal oropharynx and mucous membranes moist Neck Neck exam: Present normal inspection, full ROM and trachea midline Chest Chest inspection: Present normal inspection and symmetric chest wall rise Respiratory Respiratory exam: Present normal lung sounds bilaterally; Absent respiratory distress Cardiovascular Cardiovascular exam: Present regular rate, normal rhythm and normal heart sounds Abdominal Exam Abdominal exam: Present soft and normal bowel sounds; Absent distention, tenderness, guarding, rebound or rigidity Extremities Exam Extremities exam: Present normal inspection and full ROM Back Exam Back exam: Present normal inspection and full ROM Neurological Exam Neurological exam: Present alert, oriented X3 and CN II-XII intact Psychiatric Psychiatric exam: Present normal affect and normal mood Skin Skin exam: Present warm, dry, intact and normal color Course Quality Measures none Orders Category Date Time Status HYDROcodone*/APAP 5/325 [[place] 5/325] Med 09/20/24 13:06 Discontinued 1 tab PO X1 ONE Ketorolac Inj [Toradol Inj] Med 09/20/24 13:06 Discontinued 30 mg IM X1 ONE Vital Signs Vital signs: Vital Signs Temperature 98.0 F 09/20/24 13:03 Pulse Rate 87 09/20/24 13:03 Respiratory Rate 18 09/20/24 13:03 Blood Pressure 148/81 H 09/20/24 13:03 Pulse Oximetry (%) 98 09/20/24 13:03 Oxygen Delivery Method Room Air 09/20/24 13:03 O2 saturation 98% room air with normal Urogenital - Male MDM Narrative MDM Narrative:: 63-year-old male presents emergency department today for complaints of burning at the tip of his penis at the catheter site. Patient reports his catheter is draining well reports no abdominal pain On exam patient well-appearing patient does not appear ill or toxic no acute distress Patient given pain medication per his request patient presents to follow-up with his primary care doctor tomorrow Patient instructed to follow-up with his primary care doctor tomorrow for worsening symptoms return immediately Patient data External records reviewed:: [facility] previous records Clinical information provided by:: patient Social determinants that could affect healthcare access:: none Patient has the following chronic illnesses:: See history How is presenting disease/condition affected by chronic disease/condition?: caused by Evaluation data The following diagnostics were reviewed and interpreted by me:: other (specify) Lab and/or radiology exams considered but not ordered:: Considered not ordered Interpretation Summary: N/A Medications / Prescriptions Medications or Prescriptions considered but not ordered:: Given Medication administrations:: Medication Administration History Discontinued Medications Hydrocodone Bitart/Acetaminophen (Hydrocodone/Apap 5/325 Tablet) 1 tab PO X1 ONE Stop: 09/20/24 13:07 Last Admin: 09/20/24 13:17 Dose: 1 tab Documented By: Ketorolac Tromethamine (Ketorolac Inj 30 Mg/Ml Vial) 30 mg IM X1 ONE Stop: 09/20/24 13:07 Last Admin: 09/20/24 13:17 Dose: 30 mg Documented By: Given Consultations Consultation(s) initiated? (list below): No Diagnosis Urogenital Male Differential Diagnosis: urinary tract infection, acute retention of urine and inguinal hernia Most likely diagnosis given after review of the tests above:: Abdominal pain Admission Indicated Admission indicated?: not indicated Admission Request Was there a request for admission?: No Disposition Plan Disposition Plan: Discharge Discharge Attestation Discharge Attestation: The patient and all family members were given an opportunity to ask questions and understood the discharge instructions. Discharge instructions specifically effects, indications for sooner follow up or return to the emergency department, and the expected course of current diagnosis. Patient condition: Stable Discharge Plan Plan Patient Disposition: HOME (Self Care) Discharge Disposition comment: Stable Prescriptions/Referrals Prescriptions/Med Rec: New ibuprofen 800 mg tablet 800 mg PO TID PRN (Reason: pain) Qty: 30 0RF hydrocodone-acetaminophen 5-325 mg tablet 1 tab PO BID MDD 10 PRN (Reason: pain) Qty: 10 0RF No Action sulfamethoxazole-trimethoprim [Bactrim DS] 800-160 mg tablet 1 tab PO BID 7 Days Qty: 14 0RF Problem List Clinical Impression: Acute on chronic retention of urine Patient/Caregiver Discharge Instructions Education Materials: ED Urinary Retention, Male Additional Instructions: Please keep your appointment tomorrow as discussed for worsening symptoms or concerns return immediately Print Language: Gambian Stand Alone Forms: Latoya Award Info., Patient Portal Info Letter PA/SINGLE CORNER CUTTER Supervising Physician PA/SINGLE CORNER CUTTER Supervising Physician: Dr. griffin
== END 2024-09-20 13:35 | disposition home or self-care (01) ==
PROVIDERS: Emergency Provider Emergency Medicine; PCP Family Medicine
DX: R33.9 Retention of urine, unspecified (principal); Z96.0 Presence of urogenital implants
CPT/HCPCS: 96372; 99283; J1885; A9270

== ENCOUNTER 2024-10-01 15:41 | Emergency (ER) | payer MEDICAID, SELFPAY ==
[2024-10-01 15:49] VITALS: BP 129/81; PULSE 81; RESP 20; TEMP 36.7; O2SAT 95; BMI 22.9
--- NOTE | 2024-10-01 15:56 | EDNOTE_ITS ---
ED Male Genitalurinary RME/HPI General Chief complaint: Urogenital-Male Stated complaint: NEEDS SAINI CATHETER REPLACED Time Seen by Provider: 10/01/24 15:48 Arrival date/time: 10/01/24 15:41 This is a 63-year-old male that comes into the emergency room with complaints of needing a Saini catheter replaced. Patient states his previous Saini catheter came out. Patient states he has a specialist appointment coming up. Patient states he just needs a catheter till then. Patient states he otherwise has urinary retention. Related Data Previous Rx's ?Medication ?Instructions ?Recorded hydrocodone 5 mg-acetaminophen 325 1 tab PO BID PRN pa in #10 tabs 09/20/24 mg tablet ibuprofen 800 mg tablet 800 mg PO TID PRN pain #30 t abs 09/20/24 tamsulosin 0.4 mg capsule (Flomax) 0.4 mg PO QDAY #20 caps 10/01/24 Allergies Allergy/AdvReac Type Severity Reaction Status Date / Time No Known Allergies Allergy Verified 10/01/24 15:43 Course Orders Category Date Time Status Saini [Urinary Catheter] QS Care 10/01/24 15:57 Active Urinalysis, C/S if Indicated Stat Lab 10/01/24 16:23 Received Urine Culture Stat Lab 10/01/24 16:23 Received Lidocaine Jelly 2% Urojet [Xylocaine Jelly 2% Urojet] Med 10/01/24 16:01 Discontinued See Dose Instructions TOP X1 ONE Vital Signs Vital signs: Vital Signs Temperature 98.1 F 10/01/24 15:49 Pulse Rate 81 10/01/24 15:49 Respiratory Rate 20 10/01/24 15:49 Blood Pressure 129/81 10/01/24 15:49 Pulse Oximetry (%) 95 10/01/24 15:49 Oxygen Delivery Method Room Air 10/01/24 15:49 Urogenital - Male MDM Narrative MDM Narrative:: UA and urine culture ordered. Patient states he is on antibiotics right now. Patient states he does not want a wait for urinalysis or urine culture to be done. Patient placed in a leg bag. Patient told to come back to the emergency room symptoms change or worsen Medications / Prescriptions Medication administrations:: Medication Administration History Discontinued Medications Lidocaine HCl (Lidocaine Jelly 2% (Urojet) 10 Ml Tube) 0 ml TOP X1 ONE Stop: 10/01/24 16:02 Last Admin: 10/01/24 16:17 Dose: 10 ml Documented By: DELMY Discharge Plan Plan Patient Disposition: HOME (Self Care) Patient condition on transfer: Stable Prescriptions/Referrals Prescriptions/Med Rec: New tamsulosin [Flomax] 0.4 mg capsule 0.4 mg PO QDAY Qty: 20 0RF No Action ibuprofen 800 mg tablet 800 mg PO TID PRN (Reason: pain) Qty: 30 0RF hydrocodone-acetaminophen 5-325 mg tablet 1 tab PO BID MDD 10 PRN (Reason: pain) Qty: 10 0RF Referrals: Parminder Lyles MD [Primary Care Provider] - In 1 week Problem List Clinical Impression: Encounter for Saini catheter replacement Patient/Caregiver Discharge Instructions Discharge Activity: activity as tolerated Education Materials: ED Saini Catheter, Care Print Language: Cypriot Stand Alone Forms: Latoya Award Info., Patient Portal Info Letter PA/LOGISTICS ACCOUNT MANAGER Supervising Physician PA/LOGISTICS ACCOUNT MANAGER Supervising Physician: edwin
[2024-10-01] MEDS: LIDOCAINE JELLY 2% (Urojet) 10 ML TUBE TOP (16:17)
[2024-10-01 16:35] LABS: Collection Type, Urine Voided
[2024-10-01 16:45] LABS: Bacteria,Urine 2+; Bilirubin,Urine Negative (Negative); Blood,Urine 3+ (Negative); Glucose, Urine Negative (Negative); Ketones,Urine Negative (Negative); Leukocyte Esterase,Urine Positive (Negative); Nitrite,Urine Positive (Negative); PH,Urine 6.5 (5.0-7.0); Protein,Urine 3+ (Neg - Trace); RBC,Urine 441 /hpf (0-3); Specific Gravity,Urine 1.025 (1.001-1.035); Squamous Epithelial Cell,Urine 3 /hpf (0-5); Urobilinogen,Urine Negative mg/dL (0.0-1.0); WBC,Urine 1531 /hpf (0-5)
[2024-10-01 17:15] LABS: Clarity,Urine Cloudy (Clear/Hazy); Culture Indicated,Urine Yes
[2024-10-01 17:16] LABS: Color,Urine Lt Brown (Lt Yel-Yel)
== END 2024-10-01 17:08 | disposition home or self-care (01) ==
PROVIDERS: Nurse Practitioner Family; Emergency Provider Emergency Medicine; PCP Family Medicine
DX: Z46.6 Encounter for fitting and adjustment of urinary device (principal); R33.9 Retention of urine, unspecified
CPT/HCPCS: 51702; 81001; 87077; 87086; 87186; 99283; A4314

== ENCOUNTER 2024-10-10 16:44 | Emergency (ER) | payer MEDICAID, SELFPAY ==
[2024-10-10 17:15] VITALS: BP 153/87; PULSE 95; RESP 18; TEMP 36.9; O2SAT 96
[2024-10-10 17:16] VITALS: BMI 25.8
--- NOTE | 2024-10-10 17:39 | EDNOTE_ITS ---
ED General RME/HPI General Chief complaint: General Adult/Misc Complain Stated complaint: NEEDS SAINI CHANGED Time Seen by Provider: 10/10/24 17:13 Arrival date/time: 10/10/24 16:44 This is a case of 64-year-old male with history of urinary retention came in in the emergency room due to Saini catheter change patient states that his Saini is leaking and wanted to change the Saini no other symptoms noted denies any fever chills abdominal pain or any urinary symptoms Limitations: no limitations Related Data Previous Rx's ?Medication ?Instructions ?Recorded hydrocodone 5 mg-acetaminophen 325 1 tab PO BID PRN pa in #10 tabs 09/20/24 mg tablet ibuprofen 800 mg tablet 800 mg PO TID PRN pain #30 t abs 09/20/24 tamsulosin 0.4 mg capsule (Flomax) 0.4 mg PO QDAY #20 caps 10/01/24 cefuroxime axetil 500 mg tablet 500 mg PO BID 10 days #20 tabs 10/10/24 Allergies Allergy/AdvReac Type Severity Reaction Status Date / Time No Known Allergies Allergy Verified 10/10/24 16:45 Review of Systems Review of Systems Systems Reviewed: All systems reviewed, normal except as documented Constitutional Constitutional: Reports system reviewed and no additional complaints, except as documented and Reports as per HPI Cardiovascular Cardiovascular: Reports system reviewed and no additional complaints, except as documented and Reports as per HPI Gastrointestinal Gastrointestinal: Reports system reviewed and no additional complaints, except as documented and Reports as per HPI Genitourinary Genitourinary: Reports system reviewed and no additional complaints, except as documented and Reports as per HPI Integumentary/Breasts Skin/Breast: Reports system reviewed and no additional complaints, except as documented and Reports as per HPI Neurologic Neurologic: Reports system reviewed and no additional complaints, except as documented and Reports as per HPI Past Medical History Past Medical History NEUROLOGIC: Negative Neurological Disorders or Seizures CARDIAC: Negative Cardiac Disorders or Congestive Heart Failure RESPIRATORY: Negative Chronic Obstructive Pulmonary Disease (COPD) or Asthma GENITOURINARY: Positive Genitourinary Disorders, Kidney Stones and Benign Prostatic Hyperplasia; Negative Renal Disease MUSCULOSKELETAL: Positive Musculoskeletal Disorders and Degenerative Joint Disease ENDOCRINE: Negative Diabetes Mellitus Type 1 or Diabetes Mellitus Type 2 HEMATOLOGIC: Negative Sickle Cell Disease OTHER HISTORY: Negative Blood Transfusions, Blood Transfusion Reaction or Anesthesia Reactions Social History SMOKING STATUS: Current every day smoker SUBSTANCE USE: does not use ED Exam General Limitations: Present no limitations General appearance: Present alert, in no apparent distress and other (Patient is awake alert oriented not in distress nontoxic looking well-hydrated well- nourished) Head Head exam: Present atraumatic, normocephalic and normal inspection Eye Eye exam: Present normal appearance, PERRL and EOMI ENT ENT exam: Present normal exam, normal oropharynx and mucous membranes moist Neck Neck exam: Present normal inspection, full ROM and trachea midline; Absent tenderness, meningismus or lymphadenopathy Chest Chest inspection: Present normal inspection and symmetric chest wall rise Respiratory Respiratory exam: Present normal lung sounds bilaterally; Absent respiratory distress, wheezes, stridor, accessory muscle use or prolonged expiratory phase Cardiovascular Cardiovascular exam: Present regular rate, normal rhythm and normal heart sounds; Absent bradycardia, tachycardia, irregular rhythm, systolic murmur or diastolic murmur Abdominal Exam Abdominal exam: Present soft, normal bowel sounds and other (No CVA tenderness Saini catheter intact); Absent distention, tenderness, guarding, rebound, rigidity, diminished bowel sounds, hyperactive bowel sounds, hypoactive bowel sounds, organomegaly, trauma, psoas sign, obturator sign, Alvarenga's sign, Rovsing's sign, tenderness at McBurney's Point or hernia Extremities Exam Extremities exam: Present normal inspection and full ROM Back Exam Back exam: Present normal inspection and full ROM Neurological Exam Neurological exam: Present alert, oriented X3, CN II-XII intact, normal gait and reflexes normal; Absent motor sensory deficit Psychiatric Psychiatric exam: Present normal affect and normal mood Skin Skin exam: Present warm, dry, intact and normal color Course Quality Measures none Orders Category Date Time Status Saini [Urinary Catheter] QS Care 10/10/24 17:42 Active Urinalysis Stat Lab 10/10/24 18:55 Completed Urinalysis Stat Lab 10/10/24 19:45 Ordered Urine Culture Stat Lab 10/10/24 19:50 Ordered Ketorolac Inj [Toradol Inj] Med 10/10/24 18:16 Discontinued 30 mg IM X1 ONE Lidocaine Jelly 2% Urojet [Xylocaine Jelly 2% Urojet] Med 10/10/24 17:56 Discontinued See Dose Instructions TOP X1 ONE Vital Signs Vital signs: Vital Signs Temperature 98.5 F 10/10/24 17:15 Pulse Rate 95 10/10/24 17:15 Respiratory Rate 18 10/10/24 17:15 Blood Pressure 153/87 H 10/10/24 17:15 Pulse Oximetry (%) 96 10/10/24 17:15 Oxygen Delivery Method Room Air 10/10/24 17:15 Patient is afebrile not tachycardic not tachypneic BP stable not hypoxic oxygen saturation in room air 96% normal Discharge Plan Plan Patient Disposition: HOME (Self Care) Patient condition on transfer: Stable Prescriptions/Referrals Prescriptions/Med Rec: New cefuroxime axetil 500 mg tablet 500 mg PO BID 10 Days Qty: 20 0RF No Action tamsulosin [Flomax] 0.4 mg capsule 0.4 mg PO QDAY Qty: 20 0RF ibuprofen 800 mg tablet 800 mg PO TID PRN (Reason: pain) Qty: 30 0RF hydrocodone-acetaminophen 5-325 mg tablet 1 tab PO BID MDD 10 PRN (Reason: pain) Qty: 10 0RF Referrals: Parminder Lyles MD [Primary Care Provider] - In 1 week Problem List Clinical Impression: Malfunction of Saini catheter, Urinary tract infection, Urinary retention Patient/Caregiver Discharge Instructions Education Materials: Urinary Tract Infections in Men, ED Saini Catheter, Care, ED Urinary Retention, Male Additional Instructions: Follow-up with your primary care physician in 2 days for reevaluation and to be referred to urologist for further evaluation and treatment of urinary retention recurrence persistent worsening symptoms or any emergent concern call 911 or go to the nearest emergency room take your medication as directed finish the course of antibiotic increase water intake keep hydrated Saini catheter care advised Print Language: Tanzanian Stand Alone Forms: Latoya Award Info., Patient Portal Info Letter PA/FUNERAL HOME GENERAL MANAGER Supervising Physician PA/FUNERAL HOME GENERAL MANAGER Supervising Physician: DR singh MDM Narrative MDM hospital course: This is a case of 64-year-old male with history of urinary retention came in in the emergency room due to Saini catheter change patient states that his Saini is leaking and wanted to change the Saini no other symptoms noted denies any fever chills abdominal pain or any urinary symptoms physical examination patient is awake alert oriented not in distress nontoxic looking well-hydrated well- nourished excellent skin turgor abdominal exam is benign nonsurgical no guarding no rebound no rigidity negative psoas negative straight or negative Rovsing's negative Moffat's no Alvarenga sign negative CVA tenderness Saini catheter is intact noted some leaking does ordered Saini catheter change Saini catheter was changed patient tolerated well the procedure no complication noted no bleeding urinalysis was sent to the lab noted RBC and WBCs suggestive of urinary tract infection patient was advised to follow-up with PCP to be referred to urologist for urinary retention Saini catheter care was also advised patient was prescribed cefuroxime for urinary tract infection for any worsening symptoms or any emergent concern he will return in the emergency room immediately or call 911 Patient was discharged with comfortable condition walking with stable gait. Patient verbalized no further complains explained diagnosis and answered patient question. Patient is comfortable with the proposed management plan including the need to follow up with his/her primary care physician and any specialist if applicable Discussed patient for any urgent condition or worsening sx, He/She needed to go to emergency room immediately or call 911. Patient acknowledge the responsibility to follow up as instructed and to monitor her/his symptoms. For any persistence of the symptoms for more than 3-5 days return precaution advised. Discussed the result of the test and was given printed discharge instruction Clinical Information Provided by none Medical Records Reviewed [facility] Meds/Rx Considered, not Ordered Describe details: Given Labs/Rad/Tests considered, not Ordered Describe details: Reviewed Chronic Illness/Social Conditions which may negatively complicate care or outcome(s)-explain: None or not applicable EKG EKG Interpretation narrative: Not applicable Lab Interpretation Lab(s) interpretation(s): Urinalysis reviewed Imaging Imaging interpretation: other Provider imaging interpretation(s): Not applicable Radiology reports / interpretation(s): Not applicable Medication Administration(s) Medication Administration History Discontinued Medications Ketorolac Tromethamine (Ketorolac Inj 60 Mg/2 Ml Vial) 30 mg IM X1 ONE Stop: 10/10/24 18:17 Last Admin: 10/10/24 18:19 Dose: 30 mg Documented By: DELMY Lidocaine HCl (Lidocaine Jelly 2% (Urojet) 10 Ml Tube) 0 ml TOP X1 ONE Stop: 10/10/24 17:57 Last Admin: 10/10/24 18:20 Dose: 10 ml Documented By: DELMY Given Diagnosis Differential diagnosis: Urinary tract infection Saini catheter malfunction urinary retention Differential dx and/or dx ruled out: Urinary tract infection Saini catheter malfunction urinary retention Most likely dx, and/or detailed dx discussion: Urinary tract infection Saini catheter malfunction urinary retention Dispositon Disposition: Discharge Home
[2024-10-10] MEDS: KETOROLAC INJ 60 MG/2 ML VIAL 30 MG IM (18:19)
[2024-10-10] MEDS: LIDOCAINE JELLY 2% (Urojet) 10 ML TUBE TOP (18:20)
[2024-10-10 19:17] LABS: Collection Type, Urine Voided; Squamous Epithelial Cell,Urine 0 /hpf (0-5)
[2024-10-10 19:28] LABS: Amorphous Crystals,Urine Present (Absent); Bilirubin,Urine Negative (Negative); Blood,Urine 2+ (Negative); Glucose, Urine Negative (Negative); Ketones,Urine Negative (Negative); Leukocyte Esterase,Urine Positive (Negative); Nitrite,Urine Negative (Negative); PH,Urine 8.0 (5.0-7.0); Protein,Urine 3+ (Neg - Trace); RBC,Urine 552 /hpf (0-3); Specific Gravity,Urine 1.020 (1.001-1.035); Urobilinogen,Urine Negative mg/dL (0.0-1.0); WBC,Urine 647 /hpf (0-5)
[2024-10-10 19:33] LABS: Clarity,Urine Turbid (Clear/Hazy); Color,Urine Amber (Lt Yel-Yel)
== END 2024-10-10 20:01 | disposition home or self-care (01) ==
PROVIDERS: Nurse Practitioner Family; Emergency Provider Emergency Medicine; PCP Family Medicine
DX: N39.0 Urinary tract infection, site not specified (principal)
CPT/HCPCS: 51702; 81001; 87086; 96372; 99283; A4314; J1885

== ENCOUNTER 2024-10-18 20:17 | Emergency (ER) | payer MEDICAID, SELFPAY ==
[2024-10-18 20:18] VITALS: BMI 22.9
--- NOTE | 2024-10-18 21:44 | PC.NURSE ---
pt did not answer when name was called in the lobby and was not found outside.
[2024-10-18 21:47] LABS: Collection Type, Urine Catheter; Squamous Epithelial Cell,Urine 0 /hpf (0-5)
[2024-10-18 22:12] LABS: Amorphous Crystals,Urine Present (Absent); Bilirubin,Urine Negative (Negative); Blood,Urine Trace (Negative); Clarity,Urine Cloudy (Clear/Hazy); Color,Urine Orange (Lt Yel-Yel); Culture Indicated,Urine Yes; Glucose, Urine Negative (Negative); Ketones,Urine Trace (Negative); Leukocyte Esterase,Urine Positive (Negative); Nitrite,Urine Negative (Negative); PH,Urine 8.5 (5.0-7.0); Protein,Urine 4+ (Neg - Trace); RBC,Urine 230 /hpf (0-3); Specific Gravity,Urine 1.027 (1.001-1.035); Urobilinogen,Urine Negative mg/dL (0.0-1.0); WBC,Urine 14 /hpf (0-5)
== END 2024-10-18 22:00 | disposition left against medical advice (07) ==
LOC: SERX 21:50
PROVIDERS: Emergency Provider Emergency Medicine
DX: Z53.21 Procedure and treatment not carried out due to patient leaving prior to being seen by health care provider (principal)
CPT/HCPCS: 81001; 87077; 87086; 87186; 99283

== ENCOUNTER 2024-10-19 20:24 | Emergency (ER) | payer MEDICAID, SELFPAY ==
[2024-10-19 20:25] VITALS: BMI 22.9
[2024-10-19 21:21] VITALS: BP 163/75; PULSE 91; RESP 19; TEMP 36.4; O2SAT 98
[2024-10-19] MEDS: KETOROLAC INJ 60 MG/2 ML VIAL IM (22:15)
[2024-10-19] MEDS: LIDOCAINE JELLY 2% (Urojet) 10 ML TUBE TOP (22:16)
--- NOTE | 2024-10-19 22:52 | EDNOTE_ITS ---
ED Male Genitalurinary RME/HPI General Chief complaint: Urogenital-Male Stated complaint: SAINI CLOGGED X1 HOUR Time Seen by Provider: 10/19/24 21:51 Arrival date/time: 10/19/24 20:24 64M with history of BPH and bladder/kidney stones presents to ED for pain meds and Saini change for his chronic dysuria/bladder stones. Apparently, upcoming surgery. Limitations: no limitations Related Data Previous Rx's ?Medication ?Instructions ?Recorded hydrocodone 5 mg-acetaminophen 325 1 tab PO BID PRN pa in #10 tabs 09/20/24 mg tablet ibuprofen 800 mg tablet 800 mg PO TID PRN pain #30 t abs 09/20/24 tamsulosin 0.4 mg capsule (Flomax) 0.4 mg PO QDAY #20 caps 10/01/24 cefuroxime axetil 500 mg tablet 500 mg PO BID 10 days #20 tabs 10/10/24 Allergies Allergy/AdvReac Type Severity Reaction Status Date / Time No Known Allergies Allergy Verified 10/18/24 20:21 Review of Systems Review of Systems Systems Reviewed: All systems reviewed, normal except as documented Constitutional Constitutional: Reports system reviewed and no additional complaints, except as documented, Denies fever(s) and Denies headache(s) ENT Ears, Nose, Mouth, and Throat: Denies disequilibrium and Denies headache(s) Cardiovascular Cardiovascular: Reports system reviewed and no additional complaints, except as documented, Denies chest pain and Denies dyspnea Respiratory Respiratory: Reports system reviewed and no additional complaints, except as documented, Denies cough and Denies dyspnea Gastrointestinal Gastrointestinal: Reports system reviewed and no additional complaints, except as documented, Denies abdominal pain, Denies nausea and Denies vomiting Neurologic Neurologic: Reports system reviewed and no additional complaints, except as documented, Denies confusion, Denies disequilibrium and Denies headache(s) Psychiatric Psychiatric: Denies confusion Past Medical History Past Medical History NEUROLOGIC: Negative Neurological Disorders or Seizures CARDIAC: Negative Cardiac Disorders or Congestive Heart Failure RESPIRATORY: Negative Chronic Obstructive Pulmonary Disease (COPD) or Asthma GENITOURINARY: Positive Genitourinary Disorders, Kidney Stones and Benign Prostatic Hyperplasia; Negative Renal Disease MUSCULOSKELETAL: Positive Musculoskeletal Disorders and Degenerative Joint Disease ENDOCRINE: Negative Diabetes Mellitus Type 1 or Diabetes Mellitus Type 2 HEMATOLOGIC: Negative Sickle Cell Disease OTHER HISTORY: Negative Blood Transfusions, Blood Transfusion Reaction or Anesthesia Reactions Social History SMOKING STATUS: Current every day smoker SUBSTANCE USE: does not use ED Exam General Limitations: Present no limitations General appearance: Present alert and in no apparent distress Head Head exam: Present atraumatic Eye Eye exam: Present normal appearance, PERRL and EOMI ENT ENT exam: Present normal exam, normal oropharynx and mucous membranes moist Neck Neck exam: Present normal inspection, full ROM and trachea midline Chest Chest inspection: Present normal inspection and symmetric chest wall rise Respiratory Respiratory exam: Present normal lung sounds bilaterally Cardiovascular Cardiovascular exam: Present regular rate, normal rhythm and normal heart sounds Abdominal Exam Abdominal exam: Present soft and normal bowel sounds Extremities Exam Extremities exam: Present normal inspection and full ROM Back Exam Back exam: Present normal inspection and full ROM Neurological Exam Neurological exam: Present alert, oriented X3 and CN II-XII intact Psychiatric Psychiatric exam: Present normal affect and normal mood Skin Skin exam: Present warm, dry, intact and normal color Course Quality Measures none Orders Category Date Time Status Saini to Leg Bag Routine Care 10/19/24 21:51 Ordered Ketorolac Inj [Toradol Inj] Med 10/19/24 21:51 Discontinued 60 mg IM X1 ONE Lidocaine Jelly 2% Urojet [Xylocaine Jelly 2% Urojet] Med 10/19/24 21:51 Discontinued See Dose Instructions TOP X1 ONE Vital Signs Vital signs: Vital Signs Temperature 97.6 F 10/19/24 21:21 Pulse Rate 91 10/19/24 21:21 Respiratory Rate 19 10/19/24 21:21 Blood Pressure 163/75 H 10/19/24 21:21 Pulse Oximetry (%) 98 10/19/24 21:21 Oxygen Delivery Method Room Air 10/19/24 21:21 O2 at 98% on RA and WNLs Urogenital - Male MDM Narrative MDM Narrative:: 64M with history of BPH and bladder/kidney stones presents to ED for pain meds and Saini change for his chronic dysuria/bladder stones. Apparently, upcoming surgery. Physical exam reveals uncomfortable appearing male. Patient is afebrile and alert. Saini and meds given. Patient data External records reviewed:: [facility] previous records Clinical information provided by:: patient Social determinants that could affect healthcare access:: none Patient has the following chronic illnesses:: BPH and bladder/kidney stones How is presenting disease/condition affected by chronic disease/condition?: caused by Evaluation data The following diagnostics were reviewed and interpreted by me:: other (specify) (non) Lab and/or radiology exams considered but not ordered:: not ordered Interpretation Summary: n/a Medications / Prescriptions Medications or Prescriptions considered but not ordered:: ordered Medication administrations:: Medication Administration History Discontinued Medications Ketorolac Tromethamine (Ketorolac Inj 60 Mg/2 Ml Vial) 60 mg IM X1 ONE Stop: 10/19/24 21:52 Last Admin: 10/19/24 22:15 Dose: 60 mg Documented By: EF Lidocaine HCl (Lidocaine Jelly 2% (Urojet) 10 Ml Tube) 0 ml TOP X1 ONE Stop: 10/19/24 21:52 Last Admin: 10/19/24 22:16 Dose: 10 ml Documented By: EF above Consultations Consultation(s) initiated? (list below): No Diagnosis Urogenital Male Differential Diagnosis: urinary tract infection, priapism, urethritis, epididymitis, genital herpes simplex, prostatitis, acute retention of urine, inguinal hernia and other (Saini replacement and bladder calculi) Most likely diagnosis given after review of the tests above:: Saini replacement and bladder calculi Admission Indicated Admission indicated?: not indicated Admission Request Was there a request for admission?: No Disposition Plan Disposition Plan: Discharge Discharge Attestation Discharge Attestation: The patient and all family members were given an opportunity to ask questions and understood the discharge instructions. Discharge instructions specifically effects, indications for sooner follow up or return to the emergency department, and the expected course of current diagnosis. Patient condition: Stable Discharge Plan Plan Patient Disposition: HOME (Self Care) Discharge Disposition comment: Stable Prescriptions/Referrals Prescriptions/Med Rec: No Action tamsulosin [Flomax] 0.4 mg capsule 0.4 mg PO QDAY Qty: 20 0RF cefuroxime axetil 500 mg tablet 500 mg PO BID 10 Days Qty: 20 0RF ibuprofen 800 mg tablet 800 mg PO TID PRN (Reason: pain) Qty: 30 0RF hydrocodone-acetaminophen 5-325 mg tablet 1 tab PO BID MDD 10 PRN (Reason: pain) Qty: 10 0RF Referrals: Evan Lyles MD [Primary Care Provider] - In 1 week Problem List Clinical Impression: Bladder calculi, Encounter for Saini catheter replacement Patient/Caregiver Discharge Instructions Additional Instructions: Please follow-up with PCP within 24-48 hours and return immediately if symptoms worsen. Print Language: Chadian Stand Alone Forms: Patient Portal Info Letter PA/LICENSING REGISTRATION EXAMINER Supervising Physician PA/LICENSING REGISTRATION EXAMINER Supervising Physician: Dr. Jauregui
== END 2024-10-19 22:31 | disposition home or self-care (01) ==
PROVIDERS: Emergency Provider Emergency Medicine; PCP Family Medicine
DX: Z46.6 Encounter for fitting and adjustment of urinary device (principal); N21.0 Calculus in bladder
CPT/HCPCS: 51702; 96372; 99283; A4314; J1885

== ENCOUNTER 2024-10-23 14:22 | Emergency (ER) | payer MEDICAID, SELFPAY ==
[2024-10-23 14:23] VITALS: BMI 21.5
[2024-10-23 14:52] VITALS: BP 150/88; PULSE 100; RESP 18; TEMP 36.5; O2SAT 98
--- NOTE | 2024-10-23 15:05 | XR_ITS ---
Examination: CT abdomen and pelvis without contrast. Coronal 3-D reconstructions. Sagittal 2-D reconstructions. Date and time of exam:October 15, 2024 1547 hours INDICATIONS: Pelvic pain and hematuria today, history bladder calculi on CT study August 28, 2024 CTDI: vol (mGy): 5.65 DLP: (mGycm): 300 Technique: Axial images of the abdomen have been obtained, 3 mm slice thickness Intravenous contrast material has not been administered. Low dose protocols were performed. One or more of the following dose reduction techniques were used; automated exposure control, adjustment of the mA and/or KV according to patient size, use of iterative reconstruction technique. Findings: No focal liver or splenic lesions No gallstones No pancreatic or adrenal mass No renal or ureteral calculi, no hydronephrosis Abundant stool throughout the colon Normal appendix No bowel obstruction or diverticulitis Large bladder calculi, the largest 3.4 cm and 4.0 cm Urinary Melgar catheter satisfactory position Severe osteopenia with fusion L2-L4 with satisfactory alignment Advanced disc narrowing L4-L5 IMPRESSION: No renal or ureteral calculi, no hydronephrosis Multiple large bladder calculi
--- NOTE | 2024-10-23 15:19 | PD.EDRME ---
Rapid Medical Screening Exam RME Arrival date/time: 10/23/24 14:22 64-year-old male with a history of BPH, chronic urinary catheter, acute urinary retention, presents to the emergency room with a chief complaint dysuria. I have greeted and performed a focused initial assessment of this patient. A comprehensive ED assessment and evaluation of the patient, analysis of all test results, and completion of the medical decision making process will be conducted by additional ED providers. Chief Complaint: Abdominal Pain Time Seen by Provider: 10/23/24 14:38 Vital signs: Vital Signs Temperature 97.7 F 10/23/24 14:52 Pulse Rate 100 10/23/24 14:52 Respiratory Rate 18 10/23/24 14:52 Blood Pressure 150/88 H 10/23/24 14:52 Pulse Oximetry (%) 98 10/23/24 14:52 Oxygen Delivery Method Room Air 10/23/24 14:52 Vital signs reviewed by provider: Yes
[2024-10-23 15:34] LABS: Basophils # (Auto) 0.1 Thou/mm3 (0.0-0.2); Basophils % (Auto) 1 % (0-2.5); Eosinophils # (Auto) 0.4 Thou/mm3 (0.0-0.5); Eosinophils % (Auto) 5 % (0-10); Hematocrit 42.6 % (41.0-53.0); Hemoglobin 14.2 g/dL (13.5-16.0); Immature Granulocytes Auto 0.03 Thou/mm3 (0.00-0.00); Lymphocytes # (Auto) 1.9 Thou/mm3 (1.0-4.8); Lymphocytes % (Auto) 22 % (10-50); Mean Corpuscular HGB Conc 33.3 g/dl (31.0-37.0); Mean Corpuscular Hemoglobin 28.9 pg (25.0-35.0); Mean Corpuscular Volume 87 fL (80-100); Monocytes # (Auto) 0.9 Thou/mm3 (0.0-0.8); Monocytes % (Auto) 11 % (0-12); Neutrophils # (Auto) 5.3 Thou/mm3 (1.8-7.7); Neutrophils % (Auto) 62 % (37-80); Nucleated Red Blood Cell # 0.00 Thou/mm3 (0.00-0.00); Nucleated Red Blood Cell % 0 /100 WBC (0); Platelet Count 406 Thou/mm3 (140-440); RDW Standard Deviation 46.3 fL (35.1-43.9); Red Blood Count 4.92 Miln/mm3 (4.50-5.90); White Blood Count 8.5 Thou/mm3 (3.8-10.6)
[2024-10-23 15:59] LABS: Alanine Aminotransferase 13 U/L (10-49); Albumin, Serum 4.4 gm/dL (3.4-4.8); Albumin/Globulin Ratio 1.7 (1.2-2.2); Alkaline Phosphatase 86 U/L (46-116); Anion Gap 5 (7-16); Aspartate Amino Transferase 21 U/L (0-34); BUN/Creatinine Ratio 12 Ratio (12-20); Bilirubin,Total 0.3 mg/dL (0.3-1.2); Blood Urea Nitrogen 14 mg/dL (9-23); Calcium 9.7 mg/dL (8.3-10.6); Calcium (Corrected) 9.7 mg/dL (8.5-10.1); Carbon Dioxide 27.6 mMol/L (20.0-31.0); Chloride 108 mMol/L (98-107); Creatinine (Component) 1.2 mg/dL (0.6-1.3); Estimated Creatinine Clearance 61.4 mL/min (>60); Globulin 2.6 gm/dL (2.3-3.5); Glucose 94 mg/dL (74-106); Osmolality,Calculated 281 (275-295); Potassium 4.4 mMol/L (3.4-5.1); Sodium 141 mMol/L (136-145); Total Protein 7.0 gm/dL (5.7-8.2); eGFR > 60 See Note
--- NOTE | 2024-10-23 16:15 | PD.EDABDPN ---
ED Abdominal Pain RME/HPI General Chief Complaint: Abdominal Pain Stated complaint: LOWER ABD PAIN Time seen by provider: 10/23/24 14:38 Arrival date/time: 10/23/24 14:22 Limitations: no limitations RME / HPI RME / HPI narrative: 64-year-old male who is here today with chronic pelvic pain that has been occurring for approximately 5 years. He is followed by urology and has known bladder stones. He states he went to his urologist today, was referred here, is being asked to be transferred to [facility]. Denies any fevers or chills. He has a chronic Melgar catheter in place. He has no acute nausea and vomiting. He denies any other chronic medical history. He has no history of diabetes. He has no other acute complaints. Related Data Previous Rx's ?Medication ?Instructions ?Recorded hydrocodone 5 mg-acetaminophen 325 1 tab PO BID PRN pain #10 tabs 09/20/24 mg tablet ibuprofen 800 mg tablet 800 mg PO TID PRN pain #30 tabs 09/20/24 tamsulosin 0.4 mg capsule (Flomax) 0.4 mg PO QDAY #20 caps 10/01/24 Allergies Allergy/AdvReac Type Severity Reaction Status Date / Time No Known Allergies Allergy Verified 10/23/24 14:23 Review of Systems Review of Systems Systems Reviewed: All systems reviewed, normal except as documented ED Exam General Limitations: Present no limitations General appearance: Present alert and in no apparent distress Head Head exam: Present atraumatic Eye Eye exam: Present normal appearance, PERRL and EOMI ENT ENT exam: Present normal exam, normal oropharynx and mucous membranes moist Neck Neck exam: Present normal inspection, full ROM and trachea midline Chest Chest inspection: Present normal inspection and symmetric chest wall rise Respiratory Respiratory exam: Present normal lung sounds bilaterally Cardiovascular Cardiovascular exam: Present regular rate, normal rhythm and normal heart sounds Abdominal Exam Abdominal exam: Present soft and normal bowel sounds Extremities Exam Extremities exam: Present normal inspection and full ROM Back Exam Back exam: Present normal inspection and full ROM Neurological Exam Neurological exam: Present alert and oriented X3 Psychiatric Psychiatric exam: Present normal affect and normal mood Skin Skin exam: Present warm, dry, intact and normal color Course Quality Measures none Orders Category Date Time Status Melgar [Urinary Catheter] QS Care 10/23/24 15:[address] abdomen pelvis wo con Stat Exams 10/23/24 15:05 Completed CBC Stat Lab 10/23/24 15:17 Completed CMP [Comprehensive Metabolic Panel] Stat Lab 10/23/24 15:17 Completed HYDROcodone*/APAP 5/325 [[place] 5/325] Med 10/23/24 16:10 Discontinued 1 tab PO X1 ONE Lidocaine Jelly 2% Urojet [Xylocaine Jelly 2% Urojet] Med 10/23/24 17:31 Discontinued See Dose Instructions TOP X1 ONE Morphine Inj Med 10/23/24 16:50 Discontinued 5 mg IM X1 ONE Vital Signs Vital signs: Vital Signs Temperature 97.7 F 10/23/24 14:52 Pulse Rate 100 10/23/24 14:52 Respiratory Rate 18 10/23/24 14:52 Blood Pressure 150/88 H 10/23/24 14:52 Pulse Oximetry (%) 98 10/23/24 14:52 Oxygen Delivery Method Room Air 10/23/24 14:52 Abdominal Pain MDM MDM Narrative MDM Narrative:: 64-year-old male who is here today with chronic pelvic pain that has been occurring for approximately 5 years. He is followed by urology and has known bladder stones. He states he went to his urologist today, was referred here, is being asked to be transferred to [facility]. Denies any fevers or chills. He has a chronic Melgar catheter in place. He has no acute nausea and vomiting. He denies any other chronic medical history. He has no history of diabetes. He has no other acute complaints. I was able to speak to his urologist, Dr. Miner who believes the patient is needs a catheter exchange today. Patient would benefit from a referral for his bladder stones but this is not an emergent concern today. Catheter exchange was offered to the patient who declined this. He states he will follow-up with his primary doctor regarding referral to [place]. He we discussed return precautions. Agrees to return as needed for any worsening pain, fevers, or evidence of urinary outlet obstruction. He has a prescription that his urologist provided for him to start Macrobid that he will also initiate. Patient data External records reviewed:: None Clinical information provided by:: patient Social determinants that could affect healthcare access:: none Patient has the following chronic illnesses:: Bladder stone How is presenting disease/condition affected by chronic disease/condition?: no chronic disease Evaluation data The following diagnostics were reviewed and interpreted by me:: lab results (cbc, cmp, are unremarkable ) and radiology exam(s) (chronic bladder stones ) Lab and/or radiology exams considered but not ordered:: n/a Interpretation Summary: Chronic bladder stones Medications / Prescriptions Medications or Prescriptions considered but not ordered:: n/a Medication administrations:: Medication Administration History Discontinued Medications Hydrocodone Bitart/Acetaminophen (Hydrocodone/Apap 5/325 Tablet) 1 tab PO X1 ONE Stop: 10/23/24 16:11 Last Admin: 10/23/24 16:29 Dose: 1 tab Documented By: DELMY Lidocaine HCl (Lidocaine Jelly 2% (Urojet) 10 Ml Tube) 0 ml TOP X1 ONE Stop: 10/23/24 17:32 Last Admin: 10/23/24 17:36 Dose: Not Given Documented By: DELMY Non-Admin Reason: Cancelled by Provider Morphine Sulfate (Morphine Sulf Inj 10 Mg/Ml Vial) 5 mg IM X1 ONE Stop: 10/23/24 16:51 Last Admin: 10/23/24 17:34 Dose: 5 mg Documented By: DELMY See above Consultations Consultation(s) initiated? (list below): No Diagnosis Differential diagnosis abdominal pain: calculus of kidney and gastroenteritis Most likely diagnosis given after review of the tests above:: Chronic bladder stone Admission Indicated Admission indicated?: not indicated Admission Request Was there a request for admission?: No Disposition Plan Disposition Plan: Discharge Discharge Attestation Discharge Attestation: The patient and all family members were given an opportunity to ask questions and understood the discharge instructions. Discharge instructions specifically effects, indications for sooner follow up or return to the emergency department, and the expected course of current diagnosis. Patient condition: Stable Discharge Plan Plan Patient Disposition: HOME (Self Care) Patient condition on transfer: Stable Prescriptions/Referrals Prescriptions/Med Rec: No Action tamsulosin [Flomax] 0.4 mg capsule 0.4 mg PO QDAY Qty: 20 0RF ibuprofen 800 mg tablet 800 mg PO TID PRN (Reason: pain) Qty: 30 0RF hydrocodone-acetaminophen 5-325 mg tablet 1 tab PO BID MDD 10 PRN (Reason: pain) Qty: 10 0RF Referrals: Parminder Lyles MD [Primary Care Provider] - In 1 week Problem List Clinical Impression: Bladder calculi Patient/Caregiver Discharge Instructions Education Materials: Anatomy of the Male Urinary Tract, Understanding Bladder Stones Additional Instructions: - It is important that you follow-up with your primary doctor and obtain a referral to an appropriate urologist. - Please return to the emergency room as needed for any fevers, worsening pain, or evidence of outlet obstruction. Print Language: Turkish Stand Alone Forms: Latoya Award Info., Patient Portal Info Letter
[2024-10-23] MEDS: HYDROcodone/APAP 5/325 TABLET 1 TAB PO (16:29)
[2024-10-23] MEDS: MORPHINE SULF INJ 10 MG/ML VIAL 5 MG IM (17:34)
--- NOTE | 2024-10-23 17:38 | PC.NURSE ---
PT REFUSED INSERTION OF SAINI CATHETER STATING I DON'T NEED IT CHANGED! ITS DRAINING! . PROVIDER MADE AWARE, PAIN MEDICATION WAS ADMINISTERED
[2024-10-23 17:40] VITALS: BP 128/77; PULSE 77; RESP 18; TEMP 36.6; O2SAT 96
== END 2024-10-23 17:41 | disposition home or self-care (01) ==
PROVIDERS: Physician Assistant Medical; Emergency Provider Emergency Medicine; PCP Family Medicine
DX: N21.0 Calculus in bladder (principal); Z96.0 Presence of urogenital implants
CPT/HCPCS: 36415; 74176; 80053; 81001; 85025; 96372; 99283; A4314; J2270; A9270

== ENCOUNTER 2024-10-25 03:10 | Emergency (ER) | payer MEDICAID, SELFPAY ==
[2024-10-25 03:14] VITALS: BP 128/75; PULSE 85; RESP 18; TEMP 37.1; O2SAT 97
[2024-10-25 03:18] VITALS: PULSE 108; O2SAT 96
--- NOTE | 2024-10-25 04:10 | PD.EDRME ---
Rapid Medical Screening Exam RME Arrival date/time: 10/25/24 03:10 Chief Complaint: Abdominal Pain Time Seen by Provider: 10/25/24 04:10 Vital signs: Vital Signs Temperature 98.7 F 10/25/24 03:14 Pulse Rate 85 10/25/24 03:14 Respiratory Rate 18 10/25/24 03:14 Blood Pressure 128/75 10/25/24 03:14 Pulse Oximetry (%) 97 10/25/24 03:14 Oxygen Delivery Method Room Air 10/25/24 03:14 RME Narrative: 64yo male with a history of bladder stones, turner catheter BIBA from home presents to the ED for issues with his turner catheter.
[2024-10-25 04:37] VITALS: BP 132/70; PULSE 70; RESP 16; TEMP 36.7; O2SAT 98
[2024-10-25 06:09] VITALS: BP 108/56; PULSE 86; RESP 18; TEMP 36.6; O2SAT 96
[2024-10-25] MEDS: LIDOCAINE JELLY 2% (Urojet) 10 ML TUBE TOP (06:23)
--- NOTE | 2024-10-25 07:35 | PC.NURSE ---
Received report from Melissa PIERCE and assumed care of patient. Patient resting in bed with no complaints and responds appropriately.
[2024-10-25 08:00] VITALS: BP 125/69; PULSE 68; RESP 19; TEMP 36.6; O2SAT 98
--- NOTE | 2024-10-25 08:12 | PC.NURSE ---
Patient states pain 9/10. Received verbal order for 5mg morphine IM.
[2024-10-25] MEDS: MORPHINE SULF INJ 10 MG/ML VIAL 5 MG IM (08:21)
--- NOTE | 2024-10-25 08:26 | EDNOTE_ITS ---
ED Abdominal Pain RME/HPI General Chief Complaint: Abdominal Pain Stated complaint: ABD PAIN Time seen by provider: 10/25/24 04:10 Arrival date/time: 10/25/24 03:10 RME / HPI RME / HPI narrative: 64yo male with a history of bladder stones, turner catheter BIBA from home presents to the ED for issues with his turner catheter. DR. ANDERSEN MAIN ED EVALUATION 64 year old male patient with history of bladder stones, chronic turner in place presents to the ED for complaint of turner catheter malfunction and requesting a new turner. No other associated symptoms or complaints reported. Denies fever, chills, sweating. Denies nausea, vomiting. Denies blood in urine. Related Data Previous Rx's ?Medication ?Instructions ?Recorded hydrocodone 5 mg-acetaminophen 325 1 tab PO BID PRN pa in #10 tabs 09/20/24 mg tablet ibuprofen 800 mg tablet 800 mg PO TID PRN pain #30 t abs 09/20/24 tamsulosin 0.4 mg capsule (Flomax) 0.4 mg PO QDAY #20 caps 10/01/24 Allergies Allergy/AdvReac Type Severity Reaction Status Date / Time No Known Allergies Allergy Verified 10/25/24 11:10 Review of Systems Review of Systems Systems Reviewed: All systems reviewed, normal except as documented Past Medical History Past Medical History GENITOURINARY: Positive Genitourinary Disorders, Kidney Stones and Benign Prostatic Hyperplasia MUSCULOSKELETAL: Positive Musculoskeletal Disorders and Degenerative Joint Disease Social History SMOKING STATUS: Former smoker SUBSTANCE USE: does not use ED Exam Narrative Physical exam: GENERAL APPEARANCE: alert and oriented x 4, well-developed, well-nourished, disheveled, unkempt HEENT: Normocephalic, atraumatic; pupils equal, round, reactive to light; EOMI; mucous membranes pink, moist; oropharynx clear NECK: Supple LUNGS: CTABL; no wheezes, no rales, no rhonchi HEART: Regular rate, regular rhythm; normal S1, S2; no murmurs ABDOMEN: non distended; normal BS; soft, no tenderness, no guarding, no rebound; no masses, no organomegaly, no hernia BACK: no CVA tenderness EXTREMITIES: atraumatic; no edema NEUROLOGIC: awake; alert and oriented x4; cranial nerves II-XII grossly intact; no focal sensory or motor deficits PSYCHIATRIC: appropriate mood and affect SKIN: warm, dry, normal color; no rashes Course Quality Measures none Orders Category Date Time Status Turner [Urinary Catheter] QS Care 10/25/24 04:08 Completed Lidocaine Jelly 2% Urojet [Xylocaine Jelly 2% Urojet] Med 10/25/24 06:16 Discontinued See Dose Instructions TOP X1 ONE Morphine Inj Med 10/25/24 08:13 Discontinued 5 mg IM X1 ONE Vital Signs Vital signs: Vital Signs Temperature 98.7 F 10/25/24 03:14 Pulse Rate 85 10/25/24 03:14 Respiratory Rate 18 10/25/24 03:14 Blood Pressure 128/75 10/25/24 03:14 Pulse Oximetry (%) 97 10/25/24 03:14 Oxygen Delivery Method Room Air 10/25/24 03:14 Pulse ox is 97% on room air which is adequate. Abdominal Pain MDM MDM Narrative MDM Narrative:: Radha Dixon am scribing for and in the presence of Dr. Andersen. Patient data External records reviewed:: [facility] previous records (I reviewed ED visit on 10/23/2024 ) Clinical information provided by:: patient Social determinants that could affect healthcare access:: none Patient has the following chronic illnesses:: bladder stones, chronic turner in place How is presenting disease/condition affected by chronic disease/condition?: exacerbated by Evaluation data The following diagnostics were reviewed and interpreted by me:: other (specify) (No diagnostics ordered ) Lab and/or radiology exams considered but not ordered:: None Interpretation Summary: N/A Medications / Prescriptions Medications or Prescriptions considered but not ordered:: None Medication administrations:: Medication Administration History Discontinued Medications Lidocaine HCl (Lidocaine Jelly 2% (Urojet) 10 Ml Tube) 0 ml TOP X1 ONE Stop: 10/25/24 06:17 Last Admin: 10/25/24 06:23 Dose: 10 ml Documented By: PEPE Morphine Sulfate (Morphine Sulf Inj 10 Mg/Ml Vial) 5 mg IM X1 ONE Stop: 10/25/24 08:14 Last Admin: 10/25/24 08:21 Dose: 5 mg Documented By: LOCO See above Consultations Consultation(s) initiated? (list below): No Diagnosis Differential diagnosis abdominal pain: abdominal pain, calculus of kidney and other (turner catheter malfunction ) Most likely diagnosis given after review of the tests above:: Turner catheter problem Admission Indicated Admission indicated?: not indicated Admission Request Was there a request for admission?: No Disposition Plan Disposition Plan: Discharge Discharge Attestation Discharge Attestation: The patient and all family members were given an opportunity to ask questions and understood the discharge instructions. Discharge instructions specifically effects, indications for sooner follow up or return to the emergency department, and the expected course of current diagnosis. Patient condition: Stable Discharge Plan Plan Patient Disposition: HOME (Self Care) Patient condition on transfer: Stable Prescriptions/Referrals Prescriptions/Med Rec: No Action tamsulosin [Flomax] 0.4 mg capsule 0.4 mg PO QDAY Qty: 20 0RF ibuprofen 800 mg tablet 800 mg PO TID PRN (Reason: pain) Qty: 30 0RF hydrocodone-acetaminophen 5-325 mg tablet 1 tab PO BID MDD 10 PRN (Reason: pain) Qty: 10 0RF Referrals: Parminder Lyles MD [Primary Care Provider] - In 1 week Problem List Clinical Impression: Turner catheter problem Patient/Caregiver Discharge Instructions Education Materials: ED Turner Catheter, Care Print Language: Occitan Stand Alone Forms: Latoya Award Info., Patient Portal Info Letter
--- NOTE | 2024-10-25 08:29 | PC.NURSE ---
Replaced turner bag with leg bag.
== END 2024-10-25 08:51 | disposition home or self-care (01) ==
PROVIDERS: Emergency Provider Emergency Medicine; PCP Family Medicine
DX: T83.091A Other mechanical complication of indwelling urethral catheter, initial encounter (principal); N40.0 Benign prostatic hyperplasia without lower urinary tract symptoms; Y84.6 Urinary catheterization as the cause of abnormal reaction of the patient, or of later complication, without mention of misadventure at the time of the procedure; Z87.442 Personal history of urinary calculi
CPT/HCPCS: 51702; 96372; 99283; A4314; J2270

== ENCOUNTER 2024-10-25 11:07 | Emergency (ER) | payer MEDICAID, SELFPAY ==
[2024-10-25 11:08] VITALS: BMI 21.5
[2024-10-25 11:16] VITALS: BP 147/86; PULSE 93; RESP 18; TEMP 36.7; O2SAT 99
--- NOTE | 2024-10-25 11:28 | EDNOTE_ITS ---
<Statement entered by Marylou Andersen MD - 10/25/24 13:41> As co-signing physician, I was present and available for consult prn. I concur with the plan and care as documented by the midlevel provider. ED Male Genitalurinary RME/HPI General Chief complaint: General Adult/Misc Complain Stated complaint: NEEDS SOMETHING FOR PAIN Time Seen by Provider: 10/25/24 11:08 Source: patient Arrival date/time: 10/25/24 11:07 64-year-old male with a history of BPH and a chronic Melgar catheter presents to the emergency room with a chief complaint of urethral pain. Patient was seen here this morning and discharged with a new catheter but states he needs pain medication for pain in the urethra. Mode of arrival: ambulatory Limitations: no limitations Related Data Previous Rx's ?Medication ?Instructions ?Recorded hydrocodone 5 mg-acetaminophen 325 1 tab PO BID PRN pa in #10 tabs 09/20/24 mg tablet ibuprofen 800 mg tablet 800 mg PO TID PRN pain #30 t abs 09/20/24 tamsulosin 0.4 mg capsule (Flomax) 0.4 mg PO QDAY #20 caps 10/01/24 Allergies Allergy/AdvReac Type Severity Reaction Status Date / Time No Known Allergies Allergy Verified 10/25/24 11:10 Review of Systems Review of Systems Systems Reviewed: All systems reviewed, normal except as documented Constitutional Constitutional: Reports system reviewed and no additional complaints, except as documented, Denies fatigue, Denies fever(s), Denies headache(s) and Denies weakness Eyes Eyes: Reports system reviewed and no additional complaints, except as documented, Denies blurry vision and Denies change in vision ENT Ears, Nose, Mouth, and Throat: Reports system reviewed and no additional complaints, except as documented, Denies otalgia, Denies headache(s), Denies nasal congestion, Denies throat swelling and Denies vertigo Cardiovascular Cardiovascular: Reports system reviewed and no additional complaints, except as documented, Denies chest pain, Denies dyspnea and Denies dyspnea on exertion Respiratory Respiratory: Reports system reviewed and no additional complaints, except as documented, Denies chest congestion, Denies cough, Denies dyspnea, Denies dyspnea on exertion and Denies wheezing Gastrointestinal Gastrointestinal: Reports system reviewed and no additional complaints, except as documented, Denies abdominal pain, Denies cramping, Denies nausea and Denies vomiting Genitourinary Genitourinary: Reports system reviewed and no additional complaints, except as documented, Denies dysuria and Denies hematuria Musculoskeletal Musculoskeletal: Reports system reviewed and no additional complaints, except as documented and Denies back pain Integumentary/Breasts Skin/Breast: Reports system reviewed and no additional complaints, except as documented and Denies wounds Neurologic Neurologic: Reports system reviewed and no additional complaints, except as documented, Denies confusion, Denies headache(s), Denies lack of coordination, Denies vertigo and Denies weakness Psychiatric Psychiatric: Reports system reviewed and no additional complaints, except as documented, Denies anxiety, Denies confusion, Denies depression, Denies paranoia, Denies suicidal ideation and Denies tactile hallucinations Endocrine Endocrine: Reports system reviewed and no additional complaints, except as documented and Denies fatigue Hematologic/Lymphatic Hematologic/Lymphatic: Reports system reviewed and no additional complaints, except as documented and Denies lymphadenopathy Allergic/Immunologic Allergic/Immunologic: Reports system reviewed and no additional complaints, except as documented, Denies throat swelling, Denies urticaria and Denies wheezing ED Exam General Limitations: Present no limitations General appearance: Present alert and in no apparent distress Head Head exam: Present atraumatic Eye Eye exam: Present normal appearance, PERRL and EOMI ENT ENT exam: Present normal exam, normal oropharynx and mucous membranes moist Neck Neck exam: Present normal inspection, full ROM and trachea midline Chest Chest inspection: Present normal inspection and symmetric chest wall rise Respiratory Respiratory exam: Present normal lung sounds bilaterally Cardiovascular Cardiovascular exam: Present regular rate, normal rhythm and normal heart sounds Abdominal Exam Abdominal exam: Present soft and normal bowel sounds Extremities Exam Extremities exam: Present normal inspection and full ROM Back Exam Back exam: Present normal inspection and full ROM Neurological Exam Neurological exam: Present alert, oriented X3 and CN II-XII intact Psychiatric Psychiatric exam: Present normal affect and normal mood Skin Skin exam: Present warm, dry, intact and normal color Course Quality Measures none Orders Category Date Time Status Ketorolac Inj [Toradol Inj] Med 10/25/24 11:25 Discontinued 30 mg IM X1 ONE Vital Signs Vital signs: Vital Signs Temperature 98.0 F 10/25/24 11:16 Pulse Rate 93 10/25/24 11:16 Respiratory Rate 18 10/25/24 11:16 Blood Pressure 147/86 H 10/25/24 11:16 Pulse Oximetry (%) 99 10/25/24 11:16 Oxygen Delivery Method Room Air 10/25/24 11:16 Urogenital - Male MDM Narrative MDM Narrative:: 64-year-old male with a history of BPH and a chronic Melgar catheter presents to the emergency room with a chief complaint of urethral pain. Patient was seen here this morning and discharged with a new catheter but states he needs pain medication for pain in the urethra. Patient is hemodynamically stable and in no apparent distress. Melgar catheter is draining with no complications Pain medication was given with significant improvement to the patient's symptoms The patient has an appointment this Wednesday with urologist at [facility] who will do a procedure to break up the stones Patient was discharged and educated to follow-up with primary care provider in the next 24 to 48 hours and return to the emergency room for any evidence of worsening signs or symptoms Patient data External records reviewed:: [facility] previous records Clinical information provided by:: patient Social determinants that could affect healthcare access:: none Patient has the following chronic illnesses:: BPH How is presenting disease/condition affected by chronic disease/condition?: no chronic disease Evaluation data The following diagnostics were reviewed and interpreted by me:: lab results and radiology exam(s) Lab and/or radiology exams considered but not ordered:: Labs and radiology exams considered and ordered Interpretation Summary: N/A Medications / Prescriptions Medications or Prescriptions considered but not ordered:: Medication given Medication administrations:: Medication Administration History Discontinued Medications Ketorolac Tromethamine (Ketorolac Inj 60 Mg/2 Ml Vial) 30 mg IM X1 ONE Stop: 10/25/24 11:26 Medication given Consultations Consultation(s) initiated? (list below): No Diagnosis Urogenital Male Differential Diagnosis: urinary tract infection, prostatitis, acute retention of urine and other (Urethral pain) Most likely diagnosis given after review of the tests above:: Urethral pain Admission Indicated Admission indicated?: not indicated Admission Request Was there a request for admission?: No Disposition Plan Disposition Plan: Discharge Discharge Attestation Discharge Attestation: The patient and all family members were given an opportunity to ask questions and understood the discharge instructions. Discharge instructions specifically effects, indications for sooner follow up or return to the emergency department, and the expected course of current diagnosis. Patient condition: Stable Discharge Plan Plan Patient Disposition: HOME (Self Care) Discharge Disposition comment: Stable Prescriptions/Referrals Prescriptions/Med Rec: No Action tamsulosin [Flomax] 0.4 mg capsule 0.4 mg PO QDAY Qty: 20 0RF ibuprofen 800 mg tablet 800 mg PO TID PRN (Reason: pain) Qty: 30 0RF hydrocodone-acetaminophen 5-325 mg tablet 1 tab PO BID MDD 10 PRN (Reason: pain) Qty: 10 0RF Problem List Clinical Impression: Urethral pain Patient/Caregiver Discharge Instructions Additional Instructions: Please follow-up with your urologist in the next 24 to 48 hours For any evidence of worsening signs or symptoms return to the emergency room immediately Print Language: Burkinan Stand Alone Forms: Latoya Award Info., Patient Portal Info Letter PA/[employer] Supervising Physician PA/[employer] Supervising Physician: Dr. ANDERSEN
[2024-10-25] MEDS: KETOROLAC INJ 60 MG/2 ML VIAL 30 MG IM (11:30)
== END 2024-10-25 11:41 | disposition home or self-care (01) ==
LOC: SERX 11:37
PROVIDERS: Emergency Provider Nurse Practitioner Family; PCP Family Medicine
DX: N36.8 Other specified disorders of urethra (principal); Z96.0 Presence of urogenital implants
CPT/HCPCS: 96372; 99283; J1885

== ENCOUNTER 2024-10-26 13:08 | Emergency (ER) | payer MEDICAID, SELFPAY ==
[2024-10-26 13:18] VITALS: BP 118/74; PULSE 96; RESP 20; TEMP 36.6; O2SAT 97; BMI 21.1
--- NOTE | 2024-10-26 13:34 | EDNOTE_ITS ---
ED Male Genitalurinary RME/HPI General Chief complaint: Abdominal Pain Stated complaint: ABD / GROIN / SAINI PAIN Time Seen by Provider: 10/26/24 13:31 Arrival date/time: 10/26/24 13:08 RME / HPI RME / HPI Narrative: 64-year-old male patient with significant history of BPH, chronic Saini catheter, came in for evaluation regarding ureteral pain. Patient came here 2 days ago, for a ureteral pain. Patient is asking if I can give him a Toradol shot. Patient denies any abdominal pain. Denies any fever denies any other complaints no medication was taken prior to arrival. Patient told me that he is scheduled for surgery in [place] next week, he is going there this coming Wednesday. Patient denies any vomiting denies any fever. Related Data Previous Rx's ?Medication ?Instructions ?Recorded hydrocodone 5 mg-acetaminophen 325 1 tab PO BID PRN pa in #10 tabs 09/20/24 mg tablet ibuprofen 800 mg tablet 800 mg PO TID PRN pain #30 t abs 09/20/24 tamsulosin 0.4 mg capsule (Flomax) 0.4 mg PO QDAY #20 caps 10/01/24 acetaminophen 300 mg-codeine 30 mg 1 tab PO Q8H PRN pa in #20 tabs 10/26/24 tablet acetaminophen 300 mg-codeine 30 mg 1 tab PO Q8H PRN pa in #20 tabs 10/26/24 tablet Allergies Allergy/AdvReac Type Severity Reaction Status Date / Time No Known Allergies Allergy Verified 10/26/24 13:11 Review of Systems Review of Systems Narrative Review of Systems: Review of system reviewed and within normal limits except mentioned in HPI ED Exam Narrative Physical exam: VITAL SIGNS: Reviewed. GENERAL APPEARANCE: Alert and interactive, follows commands, no acute distress, HEAD AND FACE: Non-traumatic. ENT: PERRL, pink conjunctivitis, eyelid no trauma, Mucous membrane moist. NECK: Supple, nontender, no nuchal rigidity. CHEST: No tenderness, no crepitus, no paradoxical movement, no retractions. LUNGS: Clear, well ventilated, symmetric, no rales, no wheezing, no ronchi, no stridor, good breath sounds bilaterally. HEART: Regular rate, regular rhythm, no murmur, no gallops. ABDOMEN: Soft, positive bowel sounds, nondistended, no guarding, nontender, no rebound, no masses, RECTAL: Deferred. GENITAL: Saini catheter intact, draining clear urine, no swelling to the penis not NEUROLOGICAL: Gross motor function intact sensory function intact, Appropriate for age. MUSCULOSKELETAL: low back nontender, full range of motion. EXTREMITIES: Nontender, full range of motion. SKIN: Color pink, dry, no rash, no lacerations, no abrasions, no contusions. LYMPHATICS: Deferred. Course Quality Measures none Orders Category Date Time Status HYDROcodone*/APAP 5/325 [Worden 5/325] Med 10/26/24 13:33 Discontinued 1 tab PO X1 ONE Ketorolac Inj [Toradol Inj] Med 10/26/24 13:33 Discontinued 30 mg IM X1 ONE Vital Signs Vital signs: Vital Signs Temperature 97.9 F 10/26/24 13:18 Pulse Rate 96 10/26/24 13:18 Respiratory Rate 20 10/26/24 13:18 Blood Pressure 118/74 10/26/24 13:18 Pulse Oximetry (%) 97 10/26/24 13:18 Oxygen Delivery Method Room Air 10/26/24 13:18 Urogenital - Male MDM Narrative MDM Narrative:: 64-year-old male patient with significant history of BPH, chronic Saini catheter, came in for evaluation regarding ureteral pain. Patient came here 2 days ago, for a ureteral pain. Patient is asking if I can give him a Toradol shot. Patient denies any abdominal pain. Denies any fever denies any other complaints no medication was taken prior to arrival. Patient told me that he is scheduled for surgery in [place] next week, he is going there this coming Wednesday. Patient denies any vomiting denies any fever. Imaging workup is not needed at this time. Patient just changed his catheter 2 days ago. he was here yesterday also for the same. Was given Toradol and Worden with significant for pain. Patient data External records reviewed:: None Clinical information provided by:: patient Social determinants that could affect healthcare access:: none Patient has the following chronic illnesses:: Chronic Saini catheter How is presenting disease/condition affected by chronic disease/condition?: exacerbated by Evaluation data The following diagnostics were reviewed and interpreted by me:: other (specify) (None none) Lab and/or radiology exams considered but not ordered:: None Interpretation Summary: None Medications / Prescriptions Medications or Prescriptions considered but not ordered:: None Medication administrations:: Medication Administration History Discontinued Medications Hydrocodone Bitart/Acetaminophen (Hydrocodone/Apap 5/325 Tablet) 1 tab PO X1 ONE Stop: 10/26/24 13:34 Last Admin: 10/26/24 13:55 Dose: 1 tab Documented By: Ketorolac Tromethamine (Ketorolac Inj 60 Mg/2 Ml Vial) 30 mg IM X1 ONE Stop: 10/26/24 13:34 Last Admin: 10/26/24 13:54 Dose: 30 mg Documented By: Toradol and Worden Consultations Consultation(s) initiated? (list below): No Diagnosis Urogenital Male Differential Diagnosis: other (Pain in the urethra. Chronic penile pain, chronic Saini catheter.) Most likely diagnosis given after review of the tests above:: Chronic penile pain Admission Indicated Admission indicated?: not indicated Admission Request Was there a request for admission?: No Disposition Plan Disposition Plan: Discharge Discharge Attestation Discharge Attestation: The patient and all family members were given an opportunity to ask questions and understood the discharge instructions. Discharge instructions specifically effects, indications for sooner follow up or return to the emergency department, and the expected course of current diagnosis. Patient condition: Stable Discharge Plan Plan Patient Disposition: HOME (Self Care) Discharge Disposition comment: stable Prescriptions/Referrals Prescriptions/Med Rec: New acetaminophen-codeine 300-30 mg tablet 1 tab PO Q8H PRN (Reason: pain) Qty: 20 0RF acetaminophen-codeine 300-30 mg tablet 1 tab PO Q8H PRN (Reason: pain) Qty: 20 0RF No Action tamsulosin [Flomax] 0.4 mg capsule 0.4 mg PO QDAY Qty: 20 0RF ibuprofen 800 mg tablet 800 mg PO TID PRN (Reason: pain) Qty: 30 0RF hydrocodone-acetaminophen 5-325 mg tablet 1 tab PO BID MDD 10 PRN (Reason: pain) Qty: 10 0RF Problem List Clinical Impression: Chronic pain in penis Patient/Caregiver Discharge Instructions Discharge Activity: activity as tolerated Education Materials: ED Chronic Pain Additional Instructions: Thank you for the opportunity for serving you today. You are stable for discharged . You are advised to: Follow-up with your PCP in 1 to 2 days Return to ED for worsening of symptoms Increase oral fluids Take medication as prescribed Print Language: Greenlandic Stand Alone Forms: Latoya Gilbert Info., Patient Portal Info Letter PA/EVENT PLANNING MANAGER Supervising Physician PA/EVENT PLANNING MANAGER Supervising Physician: MD Darek
[2024-10-26] MEDS: KETOROLAC INJ 60 MG/2 ML VIAL 30 MG IM (13:54)
[2024-10-26] MEDS: HYDROcodone/APAP 5/325 TABLET 1 TAB PO (13:55)
== END 2024-10-26 14:00 | disposition home or self-care (01) ==
LOC: SERX 14:05
PROVIDERS: Emergency Provider Nurse Practitioner Family; PCP Family Medicine
DX: N48.89 Other specified disorders of penis (principal); G89.29 Other chronic pain; N40.0 Benign prostatic hyperplasia without lower urinary tract symptoms; Z96.0 Presence of urogenital implants
CPT/HCPCS: 96372; 99283; J1885; A9270

== ENCOUNTER 2024-10-28 07:54 | Emergency (ER) | payer MEDICAID, SELFPAY ==
[2024-10-28 07:58] VITALS: BMI 23.6
[2024-10-28 07:59] VITALS: BP 149/73; PULSE 90; RESP 19; TEMP 36.7; O2SAT 95
--- NOTE | 2024-10-28 08:11 | EDNOTE_ITS ---
ED Male Genitalurinary RME/HPI General Chief complaint: Urogenital-Male Stated complaint: NEEDS PAIN SHOT Time Seen by Provider: 10/28/24 08:00 Arrival date/time: 10/28/24 07:54 64-year-old male with chronic indwelling catheter presents to the emergency department today for complaints of penile pain patient requesting a Toradol shot and he reports he is going to [place] today to see a specialist Limitations: no limitations Related Data Previous Rx's ?Medication ?Instructions ?Recorded hydrocodone 5 mg-acetaminophen 325 1 tab PO BID PRN pa in #10 tabs 09/20/24 mg tablet ibuprofen 800 mg tablet 800 mg PO TID PRN pain #30 t abs 09/20/24 tamsulosin 0.4 mg capsule (Flomax) 0.4 mg PO QDAY #20 caps 10/01/24 acetaminophen 300 mg-codeine 30 mg 1 tab PO Q8H PRN pa in #20 tabs 10/26/24 tablet acetaminophen 300 mg-codeine 30 mg 1 tab PO Q8H PRN pa in #20 tabs 10/26/24 tablet Allergies Allergy/AdvReac Type Severity Reaction Status Date / Time No Known Allergies Allergy Verified 10/28/24 07:56 Review of Systems Review of Systems Systems Reviewed: All systems reviewed, normal except as documented Constitutional Constitutional: Reports system reviewed and no additional complaints, except as documented, Denies fever(s) and Denies headache(s) Eyes Eyes: Reports system reviewed and no additional complaints, except as documented and Denies blurry vision ENT Ears, Nose, Mouth, and Throat: Reports system reviewed and no additional complaints, except as documented, Denies headache(s), Denies nasal congestion and Denies nasal discharge Cardiovascular Cardiovascular: Reports system reviewed and no additional complaints, except as documented, Denies chest pain and Denies dyspnea Respiratory Respiratory: Reports system reviewed and no additional complaints, except as documented, Denies chest congestion, Denies cough and Denies dyspnea Gastrointestinal Gastrointestinal: Reports system reviewed and no additional complaints, except as documented and Denies abdominal pain Genitourinary Genitourinary: Reports system reviewed and no additional complaints, except as documented, Denies difficulty urinating, Denies erectile dysfunction, Denies flank pain, Reports genital pain, Denies hematuria and Reports other (Melgar catheter in place) Integumentary/Breasts Skin/Breast: Reports system reviewed and no additional complaints, except as documented and Denies rash Neurologic Neurologic: Reports system reviewed and no additional complaints, except as documented, Reports as per HPI and Denies headache(s) Past Medical History Past Medical History NEUROLOGIC: Negative Neurological Disorders or Seizures CARDIAC: Negative Cardiac Disorders or Congestive Heart Failure RESPIRATORY: Negative Chronic Obstructive Pulmonary Disease (COPD) or Asthma GENITOURINARY: Positive Genitourinary Disorders, Kidney Stones and Benign Prostatic Hyperplasia; Negative Renal Disease MUSCULOSKELETAL: Positive Musculoskeletal Disorders and Degenerative Joint Disease ENDOCRINE: Negative Diabetes Mellitus Type 1 or Diabetes Mellitus Type 2 HEMATOLOGIC: Negative Sickle Cell Disease OTHER HISTORY: Negative Blood Transfusions, Blood Transfusion Reaction or Anesthesia Reactions Social History SMOKING STATUS: Current every day smoker SUBSTANCE USE: does not use ED Exam General Limitations: Present no limitations General appearance: Present alert and in no apparent distress Head Head exam: Present atraumatic, normocephalic and normal inspection Eye Eye exam: Present normal appearance, PERRL and EOMI; Absent conjunctival injection ENT ENT exam: Present normal exam, normal oropharynx and mucous membranes moist Neck Neck exam: Present normal inspection, full ROM and trachea midline Chest Chest inspection: Present normal inspection and symmetric chest wall rise Respiratory Respiratory exam: Present normal lung sounds bilaterally; Absent respiratory distress Cardiovascular Cardiovascular exam: Present regular rate, normal rhythm and normal heart sounds Abdominal Exam Abdominal exam: Present soft and normal bowel sounds Extremities Exam Extremities exam: Present normal inspection and full ROM Back Exam Back exam: Present normal inspection and full ROM Neurological Exam Neurological exam: Present alert, oriented X3, CN II-XII intact, normal gait and reflexes normal; Absent motor sensory deficit Psychiatric Psychiatric exam: Present normal affect and normal mood Skin Skin exam: Present warm, dry, intact and normal color Course Quality Measures none Orders Category Date Time Status HYDROcodone*/APAP 5/325 [[place] 5/325] Med 10/28/24 08:00 Discontinued 1 tab PO X1 ONE Ketorolac Inj [Toradol Inj] Med 10/28/24 08:00 Discontinued 30 mg IM X1 ONE Vital Signs Vital signs: Vital Signs Temperature 98.1 F 10/28/24 07:59 Pulse Rate 90 10/28/24 07:59 Respiratory Rate 19 10/28/24 07:59 Blood Pressure 149/73 H 10/28/24 07:59 Pulse Oximetry (%) 95 10/28/24 07:59 Oxygen Delivery Method Room Air 10/28/24 07:59 O2 saturation 95% on room air with normal limits Urogenital - Male MDM Narrative MDM Narrative:: 64-year-old male with chronic indwelling catheter presents to the emergency department today for complaints of penile pain patient requesting a Toradol shot and he reports he is going to [place] today to see a specialist on exam patient well-appearing patient does not appear ill or toxic no acute distress Patient given Toradol shot And [place] for pain Patient discharged home in no distress to follow-up with specialist in the next 24 to 48 hours and for any worsening symptoms to return to the ER immediately Patient data External records reviewed:: [facility] previous records Clinical information provided by:: patient Social determinants that could affect healthcare access:: none Patient has the following chronic illnesses:: none How is presenting disease/condition affected by chronic disease/condition?: no chronic disease Evaluation data The following diagnostics were reviewed and interpreted by me:: other (specify) (na ) Lab and/or radiology exams considered but not ordered:: considered not ordered Interpretation Summary: n.a Medications / Prescriptions Medications or Prescriptions considered but not ordered:: given Medication administrations:: Medication Administration History Discontinued Medications Hydrocodone Bitart/Acetaminophen (Hydrocodone/Apap 5/325 Tablet) 1 tab PO X1 ONE Stop: 10/28/24 08:01 Last Admin: 10/28/24 08:15 Dose: 1 tab Documented By: YENIFER Ketorolac Tromethamine (Ketorolac Inj 30 Mg/Ml Vial) 30 mg IM X1 ONE Stop: 10/28/24 08:01 Last Admin: 10/28/24 08:15 Dose: 30 mg Documented By: YENIFER given Consultations Consultation(s) initiated? (list below): No Diagnosis Urogenital Male Differential Diagnosis: urinary tract infection, urethritis, epididymitis and prostatitis Most likely diagnosis given after review of the tests above:: penile pain Admission Indicated Admission indicated?: not indicated Admission Request Was there a request for admission?: No Disposition Plan Disposition Plan: Discharge Discharge Attestation Discharge Attestation: The patient and all family members were given an opportunity to ask questions and understood the discharge instructions. Discharge instructions specifically effects, indications for sooner follow up or return to the emergency department, and the expected course of current diagnosis. Patient condition: Stable Discharge Plan Plan Patient Disposition: HOME (Self Care) Discharge Disposition comment: Stable Prescriptions/Referrals Prescriptions/Med Rec: No Action tamsulosin [Flomax] 0.4 mg capsule 0.4 mg PO QDAY Qty: 20 0RF acetaminophen-codeine 300-30 mg tablet 1 tab PO Q8H PRN (Reason: pain) Qty: 20 0RF acetaminophen-codeine 300-30 mg tablet 1 tab PO Q8H PRN (Reason: pain) Qty: 20 0RF ibuprofen 800 mg tablet 800 mg PO TID PRN (Reason: pain) Qty: 30 0RF hydrocodone-acetaminophen 5-325 mg tablet 1 tab PO BID MDD 10 PRN (Reason: pain) Qty: 10 0RF Problem List Clinical Impression: Urethral pain Patient/Caregiver Discharge Instructions Additional Instructions: Please follow-up with specialist as discussed for worsening symptoms return immediately Print Language: Pashto Stand Alone Forms: Latoya Award Info., Patient Portal Info Letter PA/CARTON FORMING MACHINE HELPER Supervising Physician PA/CARTON FORMING MACHINE HELPER Supervising Physician: Dr garcia
[2024-10-28] MEDS: KETOROLAC INJ 30 MG/ML VIAL IM (08:15)
[2024-10-28] MEDS: HYDROcodone/APAP 5/325 TABLET 1 TAB PO (08:15)
== END 2024-10-28 08:41 | disposition home or self-care (01) ==
PROVIDERS: Emergency Provider Family Medicine
DX: N36.8 Other specified disorders of urethra (principal)
CPT/HCPCS: 96372; 99283; J1885; A9270

== ENCOUNTER 2024-10-29 02:34 | Emergency (ER) | payer MEDICAID, SELFPAY ==
[2024-10-29 02:38] VITALS: BP 149/81; PULSE 74; RESP 18; TEMP 36.7; O2SAT 96
--- NOTE | 2024-10-29 02:59 | EDNOTE_ITS ---
ED Abdominal Pain RME/HPI General Chief Complaint: Abdominal Pain Stated complaint: ABD PAIN Time seen by provider: 10/29/24 02:59 Arrival date/time: 10/29/24 02:34 RME / HPI RME / HPI narrative: This section includes all my notes and documentations, including HPI, PE, and ED course. Naun Alexandra MD HPI: 64 y/o male with Hx of Kidney Stones presents with abdominal pain. Patient was discharged from [place] ED for kidney stones a few hours ago. He is requesting Morphine for pain management and no other treatment. No other complaints. ROS: All negative except as documented in HPI. Physical Exam: General: Alert and oriented. No acute distress when remaining still. Eyes: Conjunctivae and lids clear. ENT: No nasal congestion. Neck: Supple. Heart: RRR. Lungs: No respiratory distress. Good air movement. No rhonchi, wheezing, rales. Abdomen: Soft and nontender. Normal bowel sounds. No distension. No rebound or guarding. Back: No CVA tenderness. Skin: Warm and dry. Neuro: Alert and oriented X 3. At this point, diagnoses include: Abdominal pain Treatment here included: Morphine 6 mg IM. He felt better. Recommended diagnostic tests. Patient declined. Saying they were all done at [place] 6 hours ago. Discussed potential risks. We couldn't change his mind. Recommended outpatient follow-up. Based on my best medical judgment, made decision no further evaluation or treatment indicated at this time. Patient understands and agrees to the discharge instructions customized and printed, see below. Discharge Instructions from Dr. Alexandra printed for you: 1. As you requested, you are being discharged after morphine injection with no diagnostic tests. 2. We couldn't convince you to agree to diagnostic tests. 3. Follow the instructions given to you at [place] ER 6 hours ago for kidney stone, as you told us. 4. See a private doctor on 10/30/2024 for recheck and further care. Ask to review all test results and official radiology reports from [place], to make sure you receive all necessary follow-ups and monitoring. Ask for help until you are completely better. 5. Seek immediate medical care with worsening or with any concerns. Naun Alexandra MD Related Data Previous Rx's ?Medication ?Instructions ?Recorded hydrocodone 5 mg-acetaminophen 325 1 tab PO BID PRN pa in #10 tabs 09/20/24 mg tablet ibuprofen 800 mg tablet 800 mg PO TID PRN pain #30 t abs 09/20/24 tamsulosin 0.4 mg capsule (Flomax) 0.4 mg PO QDAY #20 caps 10/01/24 acetaminophen 300 mg-codeine 30 mg 1 tab PO Q8H PRN pa in #20 tabs 10/26/24 tablet acetaminophen 300 mg-codeine 30 mg 1 tab PO Q8H PRN pa in #20 tabs 10/26/24 tablet Allergies Allergy/AdvReac Type Severity Reaction Status Date / Time No Known Allergies Allergy Verified 10/29/24 02:41 Review of Systems Review of Systems Systems Reviewed: All systems reviewed, normal except as documented Past Medical History Past Medical History GENITOURINARY: Positive Genitourinary Disorders, Kidney Stones and Benign Prostatic Hyperplasia MUSCULOSKELETAL: Positive Musculoskeletal Disorders and Degenerative Joint Disease Social History SMOKING STATUS: Current every day smoker ED Exam Narrative Physical exam: Refer to [facility] Course Quality Measures none Orders Category Date Time Status Morphine Inj Med 10/29/24 02:58 Discontinued 6 mg IM X1 ONE Vital Signs Vital signs: Vital Signs Temperature 98.1 F 10/29/24 02:38 Pulse Rate 74 10/29/24 02:38 Respiratory Rate 18 10/29/24 02:38 Blood Pressure 149/81 H 10/29/24 02:38 Pulse Oximetry (%) 96 10/29/24 02:38 Oxygen Delivery Method Room Air 10/29/24 02:38 Abdominal Pain MDM MDM Narrative MDM Narrative:: Scribe Attestation: Marie Dixon am scribing for and in the presence of Dr. Alexandra. Provider Notation: Although this document has been carefully reviewed, there may still be some phonetic and other typographical errors.? These errors are purely grammatical due to imperfections in the software program and should not be construed in any way to? compromise the substance of the patient's medical care during this visit. 64 y/o male with Hx of Kidney Stones presents with abdominal pain. Patient was discharged from [place] ED for kidney stones a few hours ago. He is requesting Morphine for pain management and no other treatment. No other complaints. Patient data External records reviewed:: [facility] previous records (Reviewed prior ED records from 10/26/24. Patient was seen for Chronic pain in penis.) Clinical information provided by:: patient Social determinants that could affect healthcare access:: none Patient has the following chronic illnesses:: Kidney Stones, Benign Prostatic Hyperplasia, Degenerative Joint Disease How is presenting disease/condition affected by chronic disease/condition?: exacerbated by Evaluation data The following diagnostics were reviewed and interpreted by me:: other (specify) (N/A) Lab and/or radiology exams considered but not ordered:: None Interpretation Summary: N/A Medications / Prescriptions Medications or Prescriptions considered but not ordered:: None Medication administrations:: Medication Administration History Discontinued Medications Morphine Sulfate (Morphine Sulf Inj 10 Mg/Ml Vial) 6 mg IM X1 ONE Stop: 10/29/24 02:59 Last Admin: 10/29/24 03:27 Dose: 6 mg Documented By: MESSI Morphine 6 mg IM. Consultations Consultation(s) initiated? (list below): No Diagnosis Differential diagnosis abdominal pain: abdominal pain, acute appendicitis, calculus of kidney, constipation and gastroenteritis Most likely diagnosis given after review of the tests above:: Abdominal pain Admission Indicated Admission indicated?: not indicated Explain why admission is indicated or not indicated:: With patient declining all diagnostic tests, there was no indication for admission. Admission Request Was there a request for admission?: No Disposition Plan Disposition Plan: Discharge Discharge Attestation Discharge Attestation: The patient and all family members were given an opportunity to ask questions and understood the discharge instructions. Discharge instructions specifically effects, indications for sooner follow up or return to the emergency department, and the expected course of current diagnosis. Patient condition: Stable Discharge Plan Plan Patient Disposition: HOME (Self Care) Prescriptions/Referrals Prescriptions/Med Rec: No Action tamsulosin [Flomax] 0.4 mg capsule 0.4 mg PO QDAY Qty: 20 0RF acetaminophen-codeine 300-30 mg tablet 1 tab PO Q8H PRN (Reason: pain) Qty: 20 0RF acetaminophen-codeine 300-30 mg tablet 1 tab PO Q8H PRN (Reason: pain) Qty: 20 0RF ibuprofen 800 mg tablet 800 mg PO TID PRN (Reason: pain) Qty: 30 0RF hydrocodone-acetaminophen 5-325 mg tablet 1 tab PO BID MDD 10 PRN (Reason: pain) Qty: 10 0RF Referrals: No Primary/Family,Physician [Primary Care Provider] - In 1 week Problem List Clinical Impression: Abdominal pain Patient/Caregiver Discharge Instructions Discharge Activity: activity as tolerated Education Materials: ED Flank Pain, Uncertain Cause, ED Kidney Stone w/ Colic, ED Abdominal Pain Unknown Cause ... Additional Instructions: Discharge Instructions from Dr. Alexandra printed for you: 1. As you requested, you are being discharged after morphine injection with no diagnostic tests. 2. We couldn't convince you to agree to diagnostic tests. 3. Follow the instructions given to you at [facility] ER 6 hours ago for kidney stone, as you told us. 4. See a private doctor on 10/30/2024 for recheck and further care. Ask to review all test results and official radiology reports from [place], to make sure you receive all necessary follow-ups and monitoring. Ask for help until you are completely better. 5. Seek immediate medical care with worsening or with any concerns. Print Language: Kazakh Stand Alone Forms: Latoya Award Info., Patient Portal Info Letter
[2024-10-29] MEDS: MORPHINE SULF INJ 10 MG/ML VIAL 6 MG IM (03:27)
== END 2024-10-29 03:34 | disposition home or self-care (01) ==
PROVIDERS: Emergency Provider Emergency Medicine
DX: R10.9 Unspecified abdominal pain (principal); Z87.442 Personal history of urinary calculi
CPT/HCPCS: 96372; 99282; J2270

== ENCOUNTER 2024-10-29 17:07 | Emergency (ER) | payer MEDICAID, SELFPAY ==
[2024-10-29 17:19] VITALS: BP 142/83; PULSE 95; RESP 18; TEMP 36.7; O2SAT 96
--- NOTE | 2024-10-29 17:46 | EDNOTE_ITS ---
<Statement entered by Marylou Andersen MD - 10/30/24 17:24> As co-signing physician, I was present and available for consult prn. I concur with the plan and care as documented by the midlevel provider. ED Male Genitalurinary RME/HPI General Chief complaint: General Adult/Misc Complain Stated complaint: SUPRAPUBIC PAIN, 01/05 Time Seen by Provider: 10/29/24 17:10 Source: patient Arrival date/time: 10/29/24 17:07 64-year-old male with a history of BPH presents to the emergency room with a chief complaint of suprapubic pain x 2 days Mode of arrival: ambulatory Limitations: no limitations Related Data Previous Rx's ?Medication ?Instructions ?Recorded hydrocodone 5 mg-acetaminophen 325 1 tab PO BID PRN pa in #10 tabs 09/20/24 mg tablet ibuprofen 800 mg tablet 800 mg PO TID PRN pain #30 t abs 09/20/24 tamsulosin 0.4 mg capsule (Flomax) 0.4 mg PO QDAY #20 caps 10/01/24 acetaminophen 300 mg-codeine 30 mg 1 tab PO Q8H PRN pa in #20 tabs 10/26/24 tablet acetaminophen 300 mg-codeine 30 mg 1 tab PO Q8H PRN pa in #20 tabs 10/26/24 tablet hydrocodone 5 mg-acetaminophen 325 1 tab PO BID PRN pa in #6 tabs 10/29/24 mg tablet Allergies Allergy/AdvReac Type Severity Reaction Status Date / Time No Known Allergies Allergy Verified 10/29/24 17:09 Review of Systems Review of Systems Systems Reviewed: All systems reviewed, normal except as documented Constitutional Constitutional: Reports system reviewed and no additional complaints, except as documented, Denies fatigue, Denies fever(s), Denies headache(s) and Denies weakness Eyes Eyes: Reports system reviewed and no additional complaints, except as documented, Denies blurry vision and Denies change in vision ENT Ears, Nose, Mouth, and Throat: Reports system reviewed and no additional complaints, except as documented, Denies otalgia, Denies headache(s), Denies nasal congestion, Denies throat swelling and Denies vertigo Cardiovascular Cardiovascular: Reports system reviewed and no additional complaints, except as documented, Denies chest pain, Denies dyspnea and Denies dyspnea on exertion Respiratory Respiratory: Reports system reviewed and no additional complaints, except as documented, Denies chest congestion, Denies cough, Denies dyspnea, Denies dyspnea on exertion and Denies wheezing Gastrointestinal Gastrointestinal: Reports system reviewed and no additional complaints, except as documented, Denies abdominal pain, Denies cramping, Denies nausea and Denies vomiting Genitourinary Genitourinary: Reports system reviewed and no additional complaints, except as documented, Reports dysuria and Denies hematuria Musculoskeletal Musculoskeletal: Reports system reviewed and no additional complaints, except as documented and Denies back pain Integumentary/Breasts Skin/Breast: Reports system reviewed and no additional complaints, except as documented and Denies wounds Neurologic Neurologic: Reports system reviewed and no additional complaints, except as documented, Denies confusion, Denies headache(s), Denies lack of coordination, Denies vertigo and Denies weakness Psychiatric Psychiatric: Reports system reviewed and no additional complaints, except as documented, Denies anxiety, Denies confusion, Denies depression, Denies paranoia, Denies suicidal ideation and Denies tactile hallucinations Endocrine Endocrine: Reports system reviewed and no additional complaints, except as documented and Denies fatigue Hematologic/Lymphatic Hematologic/Lymphatic: Reports system reviewed and no additional complaints, except as documented and Denies lymphadenopathy Allergic/Immunologic Allergic/Immunologic: Reports system reviewed and no additional complaints, except as documented, Denies throat swelling, Denies urticaria and Denies wheezing Past Medical History Past Medical History NEUROLOGIC: Negative Neurological Disorders or Seizures CARDIAC: Negative Cardiac Disorders or Congestive Heart Failure RESPIRATORY: Negative Chronic Obstructive Pulmonary Disease (COPD) or Asthma GENITOURINARY: Positive Genitourinary Disorders, Kidney Stones and Benign Prostatic Hyperplasia; Negative Renal Disease MUSCULOSKELETAL: Positive Musculoskeletal Disorders and Degenerative Joint Disease ENDOCRINE: Negative Diabetes Mellitus Type 1 or Diabetes Mellitus Type 2 HEMATOLOGIC: Negative Sickle Cell Disease OTHER HISTORY: Negative Blood Transfusions, Blood Transfusion Reaction or Anesthesia Reactions Social History SMOKING STATUS: Current every day smoker SUBSTANCE USE: does not use ED Exam General Limitations: Present no limitations General appearance: Present alert and in no apparent distress Head Head exam: Present atraumatic Eye Eye exam: Present normal appearance, PERRL and EOMI ENT ENT exam: Present normal exam, normal oropharynx and mucous membranes moist Neck Neck exam: Present normal inspection, full ROM and trachea midline Chest Chest inspection: Present normal inspection and symmetric chest wall rise Respiratory Respiratory exam: Present normal lung sounds bilaterally Cardiovascular Cardiovascular exam: Present regular rate, normal rhythm and normal heart sounds Abdominal Exam Abdominal exam: Present soft and normal bowel sounds Extremities Exam Extremities exam: Present normal inspection and full ROM Back Exam Back exam: Present normal inspection and full ROM Neurological Exam Neurological exam: Present alert, oriented X3 and CN II-XII intact Psychiatric Psychiatric exam: Present normal affect and normal mood Skin Skin exam: Present warm, dry, intact and normal color Course Quality Measures none Orders Category Date Time Status Ketorolac Inj [Toradol Inj] Med 10/29/24 17:36 Discontinued 30 mg IM X1 ONE Vital Signs Vital signs: Vital Signs Temperature 98.1 F 10/29/24 17:19 Pulse Rate 95 10/29/24 17:19 Respiratory Rate 18 10/29/24 17:19 Blood Pressure 142/83 H 10/29/24 17:19 Pulse Oximetry (%) 96 10/29/24 17:19 Oxygen Delivery Method Room Air 10/29/24 17:19 Urogenital - Male MDM Narrative MDM Narrative:: 64-year-old male with a history of BPH presents to the emergency room with a chief complaint of suprapubic pain x 2 days Patient is hemodynamically stable and in no apparent distress Physical examination shows pain and tenderness to the patient's urethra. The patient tells me that his pain is not a dysuria pain but more of a pain from the chronic catheter wheezing and of the urethra. Patient states he drove to [place] to see urology help but was discharged and told to follow-up as an outpatient. Patient has his urology appointment here with Dr. De Jesus Wednesday. The patient's catheter is draining and there are no signs of hematuria or any urinary tract infections. The patient does not want a catheter changed instead he just wants a shot of Toradol to help him with this pain. Medication was given and the patient was discharged and educated to follow-up with his urologist on Wednesday Patient was discharged and educated to follow-up with primary care provider in the next 24 to 48 hours and return to the emergency room for any evidence of worsening signs or symptoms Patient data External records reviewed:: [facility] previous records Clinical information provided by:: patient Social determinants that could affect healthcare access:: none Patient has the following chronic illnesses:: BPH How is presenting disease/condition affected by chronic disease/condition?: caused by Evaluation data The following diagnostics were reviewed and interpreted by me:: lab results and radiology exam(s) Lab and/or radiology exams considered but not ordered:: Labs and radiology exams considered in order Interpretation Summary: N/A Medications / Prescriptions Medications or Prescriptions considered but not ordered:: Medication given Medication administrations:: Medication Administration History Discontinued Medications Ketorolac Tromethamine (Ketorolac Inj 60 Mg/2 Ml Vial) 30 mg IM X1 ONE Stop: 10/29/24 17:37 Last Admin: 10/29/24 17:51 Dose: 30 mg Documented By: MF Medication given Consultations Consultation(s) initiated? (list below): No Diagnosis Urogenital Male Differential Diagnosis: urinary tract infection, urethritis, prostatitis, acute retention of urine and other (Urethral pain) Most likely diagnosis given after review of the tests above:: Urethral pain Admission Indicated Admission indicated?: not indicated Admission Request Was there a request for admission?: No Disposition Plan Disposition Plan: Discharge Discharge Attestation Discharge Attestation: The patient and all family members were given an opportunity to ask questions and understood the discharge instructions. Discharge instructions specifically effects, indications for sooner follow up or return to the emergency department, and the expected course of current diagnosis. Patient condition: Stable Discharge Plan Plan Patient Disposition: HOME (Self Care) Discharge Disposition comment: Stable Prescriptions/Referrals Prescriptions/Med Rec: New hydrocodone-acetaminophen 5-325 mg tablet 1 tab PO BID MDD 10mg PRN (Reason: pain) Qty: 6 0RF No Action tamsulosin [Flomax] 0.4 mg capsule 0.4 mg PO QDAY Qty: 20 0RF acetaminophen-codeine 300-30 mg tablet 1 tab PO Q8H PRN (Reason: pain) Qty: 20 0RF acetaminophen-codeine 300-30 mg tablet 1 tab PO Q8H PRN (Reason: pain) Qty: 20 0RF ibuprofen 800 mg tablet 800 mg PO TID PRN (Reason: pain) Qty: 30 0RF hydrocodone-acetaminophen 5-325 mg tablet 1 tab PO BID MDD 10 PRN (Reason: pain) Qty: 10 0RF Referrals: No Primary/Family,Physician [Primary Care Provider] - In 1 week Problem List Clinical Impression: Urethral pain Patient/Caregiver Discharge Instructions Additional Instructions: Please follow-up with your urologist tomorrow as planned Medication was sent to your pharmacy please pick it up and take it as indicated For any evidence of worsening signs or symptoms return the emergency room immediately Print Language: Djiboutian Stand Alone Forms: Latoya Award Info., Patient Portal Info Letter PA/CLINICAL BIOCHEMICAL GENETICIST Supervising Physician PA/CLINICAL BIOCHEMICAL GENETICIST Supervising Physician: Dr. Oswald
[2024-10-29] MEDS: KETOROLAC INJ 60 MG/2 ML VIAL 30 MG IM (17:51)
== END 2024-10-29 18:20 | disposition home or self-care (01) ==
PROVIDERS: Emergency Provider Family Medicine
DX: N36.8 Other specified disorders of urethra (principal); N40.0 Benign prostatic hyperplasia without lower urinary tract symptoms
CPT/HCPCS: 96372; 99282; J1885

== ENCOUNTER 2024-10-30 16:12 | Emergency (ER) | payer MEDICAID, SELFPAY ==
[2024-10-30 16:32] VITALS: BP 139/86; PULSE 114; RESP 20; TEMP 36.6; O2SAT 97; BMI 29.7
--- NOTE | 2024-10-30 16:32 | EDNOTE_ITS ---
<Statement entered by Marylou Andersen MD - 10/30/24 17:21> As co-signing physician, I was present and available for consult prn. I concur with the plan and care as documented by the midlevel provider. ED Abdominal Pain RME/HPI General Chief Complaint: Abdominal Pain Stated complaint: ABD PAIN X 4 HOURS, HISTORY OF BLADDER STONES Arrival date/time: 10/30/24 16:12 64-year-old male with a history of bladder stones and kidney stones presents to the emergency room with a chief complaint of abdominal pain x 4 hours Source: patient Mode of arrival: ambulatory Limitations: no limitations Related Data Previous Rx's ?Medication ?Instructions ?Recorded hydrocodone 5 mg-acetaminophen 325 1 tab PO BID PRN pa in #10 tabs 09/20/24 mg tablet ibuprofen 800 mg tablet 800 mg PO TID PRN pain #30 t abs 09/20/24 tamsulosin 0.4 mg capsule (Flomax) 0.4 mg PO QDAY #20 caps 10/01/24 acetaminophen 300 mg-codeine 30 mg 1 tab PO Q8H PRN pa in #20 tabs 10/26/24 tablet acetaminophen 300 mg-codeine 30 mg 1 tab PO Q8H PRN pa in #20 tabs 10/26/24 tablet hydrocodone 5 mg-acetaminophen 325 1 tab PO BID PRN pa in #6 tabs 10/29/24 mg tablet Allergies Allergy/AdvReac Type Severity Reaction Status Date / Time No Known Allergies Allergy Verified 10/30/24 16:14 Review of Systems Review of Systems Systems Reviewed: All systems reviewed, normal except as documented Constitutional Constitutional: Reports system reviewed and no additional complaints, except as documented, Denies fatigue, Denies fever(s), Denies headache(s) and Denies weakness Eyes Eyes: Reports system reviewed and no additional complaints, except as documented, Denies blurry vision and Denies change in vision ENT Ears, Nose, Mouth, and Throat: Reports system reviewed and no additional complaints, except as documented, Denies otalgia, Denies headache(s), Denies nasal congestion, Denies throat swelling and Denies vertigo Cardiovascular Cardiovascular: Reports system reviewed and no additional complaints, except as documented, Denies chest pain, Denies dyspnea and Denies dyspnea on exertion Respiratory Respiratory: Reports system reviewed and no additional complaints, except as documented, Denies chest congestion, Denies cough, Denies dyspnea, Denies dyspnea on exertion and Denies wheezing Gastrointestinal Gastrointestinal: Reports system reviewed and no additional complaints, except as documented, Reports abdominal pain, Denies cramping, Denies nausea and Denies vomiting Genitourinary Genitourinary: Reports system reviewed and no additional complaints, except as documented, Denies dysuria and Denies hematuria Musculoskeletal Musculoskeletal: Reports system reviewed and no additional complaints, except as documented and Denies back pain Integumentary/Breasts Skin/Breast: Reports system reviewed and no additional complaints, except as documented and Denies wounds Neurologic Neurologic: Reports system reviewed and no additional complaints, except as documented, Denies confusion, Denies headache(s), Denies lack of coordination, Denies vertigo and Denies weakness Psychiatric Psychiatric: Reports system reviewed and no additional complaints, except as documented, Denies anxiety, Denies confusion, Denies depression, Denies paranoia, Denies suicidal ideation and Denies tactile hallucinations Endocrine Endocrine: Reports system reviewed and no additional complaints, except as documented and Denies fatigue Hematologic/Lymphatic Hematologic/Lymphatic: Reports system reviewed and no additional complaints, except as documented and Denies lymphadenopathy Allergic/Immunologic Allergic/Immunologic: Reports system reviewed and no additional complaints, except as documented, Denies throat swelling, Denies urticaria and Denies wheezing Past Medical History Past Medical History NEUROLOGIC: Negative Neurological Disorders or Seizures CARDIAC: Negative Cardiac Disorders or Congestive Heart Failure RESPIRATORY: Negative Chronic Obstructive Pulmonary Disease (COPD) or Asthma GENITOURINARY: Positive Genitourinary Disorders, Kidney Stones and Benign Prostatic Hyperplasia; Negative Renal Disease MUSCULOSKELETAL: Positive Musculoskeletal Disorders and Degenerative Joint Disease ENDOCRINE: Negative Diabetes Mellitus Type 1 or Diabetes Mellitus Type 2 HEMATOLOGIC: Negative Sickle Cell Disease OTHER HISTORY: Negative Blood Transfusions, Blood Transfusion Reaction or Anesthesia Reactions Social History SMOKING STATUS: Heavy (> 1 pack/day) SUBSTANCE USE: does not use ED Exam General Limitations: Present no limitations General appearance: Present alert and in no apparent distress Head Head exam: Present atraumatic Eye Eye exam: Present normal appearance, PERRL and EOMI ENT ENT exam: Present normal exam, normal oropharynx and mucous membranes moist Neck Neck exam: Present normal inspection, full ROM and trachea midline Chest Chest inspection: Present normal inspection and symmetric chest wall rise Respiratory Respiratory exam: Present normal lung sounds bilaterally Cardiovascular Cardiovascular exam: Present regular rate, normal rhythm and normal heart sounds Abdominal Exam Abdominal exam: Present soft and normal bowel sounds; Absent distention, tenderness, guarding or rebound Extremities Exam Extremities exam: Present normal inspection and full ROM Back Exam Back exam: Present normal inspection and full ROM Neurological Exam Neurological exam: Present alert, oriented X3 and CN II-XII intact Psychiatric Psychiatric exam: Present normal affect and normal mood Skin Skin exam: Present warm, dry, intact and normal color Course Quality Measures none Orders Category Date Time Status Ketorolac Inj [Toradol Inj] Med 10/30/24 16:30 Discontinued 30 mg IM X1 ONE Vital Signs Vital signs: Vital Signs Temperature 97.9 F 10/30/24 16:32 Pulse Rate 114 H 10/30/24 16:32 Respiratory Rate 20 10/30/24 16:32 Blood Pressure 139/86 H 10/30/24 16:32 Pulse Oximetry (%) 97 10/30/24 16:32 Oxygen Delivery Method Room Air 10/30/24 16:32 Abdominal Pain MDM MDM Narrative MDM Narrative:: 64-year-old male with a history of bladder stones and kidney stones presents to the emergency room with a chief complaint of abdominal pain x 4 hours Patient is hemodynamically stable and in no apparent distress. Patient states he is here due to his lower pelvic cramping. Patient states he has a history of bladder stones as well as kidney stones. Patient recently went to [place] to see a urologist. The urologist made him an appointment on February 10. The patient states that he is still in pain and would like medication for it. Patient denies any dysuria or any urinary retention in his catheter. Patient states he just wants a shot of Toradol and he will go home and follow-up with his primary care provider tomorrow Patient was discharged and educated to follow-up with primary care provider in the next 24 to 48 hours and return to the emergency room for any evidence of worsening signs or symptoms Patient data External records reviewed:: [facility] previous records Clinical information provided by:: patient Social determinants that could affect healthcare access:: none Patient has the following chronic illnesses:: BPH How is presenting disease/condition affected by chronic disease/condition?: caused by Evaluation data The following diagnostics were reviewed and interpreted by me:: lab results and radiology exam(s) Lab and/or radiology exams considered but not ordered:: Labs and radiology exams considered and ordered Interpretation Summary: N/A Medications / Prescriptions Medications or Prescriptions considered but not ordered:: Medication given Medication administrations:: Medication Administration History Discontinued Medications Ketorolac Tromethamine (Ketorolac Inj 60 Mg/2 Ml Vial) 30 mg IM X1 ONE Stop: 10/30/24 16:31 Medication given Consultations Consultation(s) initiated? (list below): No Diagnosis Differential diagnosis abdominal pain: calculus of kidney and other (Chronic pelvic pain) Most likely diagnosis given after review of the tests above:: Chronic pelvic pain Admission Indicated Admission indicated?: not indicated Admission Request Was there a request for admission?: No Disposition Plan Disposition Plan: Discharge Discharge Attestation Discharge Attestation: The patient and all family members were given an opportunity to ask questions and understood the discharge instructions. Discharge instructions specifically effects, indications for sooner follow up or return to the emergency department, and the expected course of current diagnosis. Patient condition: Stable Discharge Plan Plan Patient Disposition: HOME (Self Care) Discharge Disposition comment: Stable Prescriptions/Referrals Prescriptions/Med Rec: No Action tamsulosin [Flomax] 0.4 mg capsule 0.4 mg PO QDAY Qty: 20 0RF acetaminophen-codeine 300-30 mg tablet 1 tab PO Q8H PRN (Reason: pain) Qty: 20 0RF acetaminophen-codeine 300-30 mg tablet 1 tab PO Q8H PRN (Reason: pain) Qty: 20 0RF ibuprofen 800 mg tablet 800 mg PO TID PRN (Reason: pain) Qty: 30 0RF hydrocodone-acetaminophen 5-325 mg tablet 1 tab PO BID MDD 10 PRN (Reason: pain) Qty: 10 0RF hydrocodone-acetaminophen 5-325 mg tablet 1 tab PO BID MDD 10mg PRN (Reason: pain) Qty: 6 0RF Problem List Clinical Impression: Chronic male pelvic pain Patient/Caregiver Discharge Instructions Education Materials: ED Chronic Pain Additional Instructions: Please follow-up with your urologist appointment on February 10. Please follow-up with your primary care provider in the next 24 to 48 hours Please picker / packer your pain medication that was sent to your pharmacy yesterday. For any evidence of worsening signs or symptoms return to the emergency room immediately Print Language: Guamanian Stand Alone Forms: Latoya Award Info., Patient Portal Info Letter PA/CECILIA Supervising Physician PA/CECILIA Supervising Physician: Dr. ANDERSEN
[2024-10-30] MEDS: KETOROLAC INJ 60 MG/2 ML VIAL 30 MG IM (16:49)
== END 2024-10-30 17:00 | disposition home or self-care (01) ==
LOC: SERX 16:34
PROVIDERS: Emergency Provider Emergency Medicine
DX: R10.2 Pelvic and perineal pain (principal); G89.29 Other chronic pain
CPT/HCPCS: 96372; 99282; J1885

== ENCOUNTER 2024-11-01 07:51 | Emergency (ER) | payer MEDICAID, SELFPAY ==
[2024-11-01 08:00] VITALS: BP 148/75; PULSE 77; RESP 18; TEMP 37.1; O2SAT 98; BMI 22.8
--- NOTE | 2024-11-01 08:06 | EDRME_ITS ---
Rapid Medical Screening Exam RME Arrival date/time: 11/01/24 07:51 Chief Complaint: Urogenital-Male Vital signs: Vital Signs Temperature 98.7 F 11/01/24 08:00 Pulse Rate 77 11/01/24 08:00 Respiratory Rate 18 11/01/24 08:00 Blood Pressure 148/75 H 11/01/24 08:00 Pulse Oximetry (%) 98 11/01/24 08:00 Oxygen Delivery Method Room Air 11/01/24 08:00 Pulse ox is 98% Vital signs reviewed by provider: Yes RME Narrative: 64-year-old male presents to emergency department with complaint of kidney stones. Patient was seen in [place] and is to have an appointment in January for removal of the kidney stones. Patient tells me that he is in pain as is requesting pain medication.
[2024-11-01 08:24] LABS: Collection Type, Urine Clean Catch
[2024-11-01 08:36] LABS: Bacteria,Urine 2+; Bilirubin,Urine Negative (Negative); Blood,Urine 3+ (Negative); Budding Yeast,Urine Present; Color,Urine Yellow (Lt Yel-Yel); Glucose, Urine Negative (Negative); Hyaline Casts,Urine 1 /hpf (0-1); Ketones,Urine Negative (Negative); Leukocyte Esterase,Urine Positive (Negative); Nitrite,Urine Negative (Negative); PH,Urine 6.5 (5.0-7.0); Protein,Urine 2+ (Neg - Trace); RBC,Urine 461 /hpf (0-3); Specific Gravity,Urine 1.020 (1.001-1.035); Squamous Epithelial Cell,Urine 5 /hpf (0-5); Urobilinogen,Urine Negative mg/dL (0.0-1.0); WBC,Urine 1695 /hpf (0-5)
[2024-11-01 08:37] LABS: Clarity,Urine Hazy (Clear/Hazy)
[2024-11-01 08:46] LABS: Basophils # (Auto) 0.1 Thou/mm3 (0.0-0.2); Basophils % (Auto) 1 % (0-2.5); Eosinophils # (Auto) 0.3 Thou/mm3 (0.0-0.5); Eosinophils % (Auto) 4 % (0-10); Hematocrit 39.6 % (41.0-53.0); Hemoglobin 13.3 g/dL (13.5-16.0); Immature Granulocytes Auto 0.03 Thou/mm3 (0.00-0.00); Lymphocytes # (Auto) 1.6 Thou/mm3 (1.0-4.8); Lymphocytes % (Auto) 18 % (10-50); Mean Corpuscular HGB Conc 33.6 g/dl (31.0-37.0); Mean Corpuscular Hemoglobin 29.1 pg (25.0-35.0); Mean Corpuscular Volume 87 fL (80-100); Monocytes # (Auto) 0.8 Thou/mm3 (0.0-0.8); Monocytes % (Auto) 9 % (0-12); Neutrophils # (Auto) 6.0 Thou/mm3 (1.8-7.7); Neutrophils % (Auto) 69 % (37-80); Nucleated Red Blood Cell # 0.00 Thou/mm3 (0.00-0.00); Nucleated Red Blood Cell % 0 /100 WBC (0); Platelet Count 406 Thou/mm3 (140-440); RDW Standard Deviation 45.9 fL (35.1-43.9); Red Blood Count 4.57 Miln/mm3 (4.50-5.90); White Blood Count 8.7 Thou/mm3 (3.8-10.6)
--- NOTE | 2024-11-01 08:55 | EDNOTE_ITS ---
<Statement entered by Marylou Andersen MD - 11/01/24 09:45> I, Marylou Andersen MD, have reviewed the history, exam, and assessment of the patient. I have evaluated the patient independently and agree with the plan of care documented by [ ]. All diagnostic studies were reviewed and discussed. I confirm the diagnosis as documented by the Resident. I was present during the Medical Decision Making for this patient. The patient's plan of care was created between myself and the Resident and consistent with our discussion of the patient's case. ED General RME/HPI General Chief complaint: Urogenital-Male Stated complaint: Kidney stones (8), pain Time Seen by Provider: 11/01/24 08:36 Arrival date/time: 11/01/24 07:51 RME / HPI RME / HPI narrative: 64-year-old male presents to emergency department with complaint of kidney stones. Patient was seen in [place] and is to have an appointment in January for removal of the kidney stones. Patient tells me that he is in pain as is req uesting pain medication. 64-year-old male with past medical history of bladder stones comes into the ED with a chief complaint of lower abdominal pain and cramping. Patient states that he has a history of bladder stones and he saw a specialist at [place] who told him that he would not have surgery for removal on January. Patient was prescribed multiple medications, but he has not taking any at this time given that he was told that these could give him some fever and chills and he did not want to run the risk of spiking a fever or chills. Denies having any chest pain, shortness of breath, changes in bowel movement, wheezing, dizziness, or nausea and vomiting. Otherwise no other complaints Patient admits smoking, denies any illicit drugs, denies any alcohol Patient has only had lower back surgery Related Data Previous Rx's ?Medication ?Instructions ?Recorded hydrocodone 5 mg-acetaminophen 325 1 tab PO BID PRN pa in #10 tabs 09/20/24 mg tablet ibuprofen 800 mg tablet 800 mg PO TID PRN pain #30 t abs 09/20/24 tamsulosin 0.4 mg capsule (Flomax) 0.4 mg PO QDAY #20 caps 10/01/24 acetaminophen 300 mg-codeine 30 mg 1 tab PO Q8H PRN pa in #20 tabs 10/26/24 tablet acetaminophen 300 mg-codeine 30 mg 1 tab PO Q8H PRN pa in #20 tabs 10/26/24 tablet hydrocodone 5 mg-acetaminophen 325 1 tab PO BID PRN pa in #6 tabs 10/29/24 mg tablet Allergies Allergy/AdvReac Type Severity Reaction Status Date / Time No Known Allergies Allergy Verified 11/01/24 07:57 Review of Systems Review of Systems Systems Reviewed: All systems reviewed, normal except as documented Past Medical History Past Medical History NEUROLOGIC: Negative Neurological Disorders or Seizures CARDIAC: Negative Cardiac Disorders or Congestive Heart Failure RESPIRATORY: Negative Chronic Obstructive Pulmonary Disease (COPD) or Asthma GENITOURINARY: Positive Genitourinary Disorders, Kidney Stones and Benign Prostatic Hyperplasia; Negative Renal Disease MUSCULOSKELETAL: Positive Musculoskeletal Disorders and Degenerative Joint Disease ENDOCRINE: Negative Diabetes Mellitus Type 1 or Diabetes Mellitus Type 2 HEMATOLOGIC: Negative Sickle Cell Disease OTHER HISTORY: Negative Blood Transfusions, Blood Transfusion Reaction or Anesthesia Reactions Social History SMOKING STATUS: Heavy (> 1 pack/day) SUBSTANCE USE: does not use ED Exam Narrative Physical exam: Gen: A&O X 3, in mild distress due to pain HEENT: NCAT, EOMI, Pupils reactive TOM, not icteric. External ears normal. No rhinorrhea. Moist mucous membranes. Neck: Supple, full range of motion, no observable masses, No meningeal sign. Lungs: No Respiratory distress, clear bilateral. CV: RRR, no murmurs. Abdomen: Soft, nondistended, tenderness in the suprapubic region, no rebound tenderness. MSK: No joint swelling, no redness, peripheral pulses presents, lumbar with no edema. Skin: No rashes, petechiae, lesions.. Neuro: No focal neurological deficits appreciated, sensory and motor intact. Psych: Cooperative, appropriate mood and effect. Course Quality Measures none Orders Category Date Time Status CBC Stat Lab 11/01/24 08:30 Completed Comprehensive Metabolic Panel Stat Lab 11/01/24 08:30 Completed Lipase Stat Lab 11/01/24 08:30 Completed Urinalysis Stat Lab 11/01/24 08:19 Completed Dicyclomine Inj [Bentyl Inj] Med 11/01/24 08:50 Discontinued 10 mg IM X1 ONE Dicyclomine [Bentyl] Med 11/01/24 09:01 Discontinued 10 mg PO X1 ONE Ketorolac Inj [Toradol Inj] Med 11/01/24 08:12 Discontinued 30 mg IM X1 ONE Vital Signs Vital signs: Vital Signs Temperature 98.7 F 11/01/24 08:00 Pulse Rate 77 11/01/24 08:00 Respiratory Rate 18 11/01/24 08:00 Blood Pressure 148/75 H 11/01/24 08:00 Pulse Oximetry (%) 98 11/01/24 08:00 Oxygen Delivery Method Room Air 11/01/24 08:00 Discharge Plan Plan Patient Disposition: HOME (Self Care) Prescriptions/Referrals Prescriptions/Med Rec: No Action tamsulosin [Flomax] 0.4 mg capsule 0.4 mg PO QDAY Qty: 20 0RF acetaminophen-codeine 300-30 mg tablet 1 tab PO Q8H PRN (Reason: pain) Qty: 20 0RF acetaminophen-codeine 300-30 mg tablet 1 tab PO Q8H PRN (Reason: pain) Qty: 20 0RF ibuprofen 800 mg tablet 800 mg PO TID PRN (Reason: pain) Qty: 30 0RF hydrocodone-acetaminophen 5-325 mg tablet 1 tab PO BID MDD 10 PRN (Reason: pain) Qty: 10 0RF hydrocodone-acetaminophen 5-325 mg tablet 1 tab PO BID MDD 10mg PRN (Reason: pain) Qty: 6 0RF Referrals: Parminder Lyles MD [Primary Care Provider] - In 1 week Problem List Clinical Impression: Suprapubic abdominal pain Patient/Caregiver Discharge Instructions Other Activity Instructions:: Follow-up primary care physician within 5 days Would recommend to see primary care physician so that he can prescribe an antispasmodic to help alleviate your pain Would recommend to continue taking medication as prescribed by [place] Come back to the ER if you experience worsening pain, fevers, chills, nausea, vomiting, or severe constipation. Education Materials: Abdominal Pain, Measuring Your Pain, Complementary Care for Pain, Communicating About Pain Print Language: Divehi Stand Alone Forms: Latoya Award Info., Patient Portal Info Letter MDM Narrative MDM hospital course: Patient was greeted and assessed by myself upon arrival to the room. Patient stated he does have a follow-up for surgery for removal of the bladder stones in January at [place]. His chief complaint at this time is only suprapubic pain which is cramping in nature. 8: 50: Ordered dicyclomine PO x 1 and ketorolac IM x1 9: 15: Labs were reviewed UA did show some bacteria, but patient was prescribed antibiotics at [place] therefore we will recommend to continue those upon discharge. 9: 40: Patient reassessed and states that his pain is a lot better. Feels he wants to go home now. At this time labs were unremarkable therefore we will discharge patient home with follow-up with primary care physician and recommended to continue all medications as prescribed presents transferred Case disclosed with Attending Dr. Ganesh Henson PGY2 Disclaimer: Even though this this note was dictated by speech recognition and even though it was carefully revised there may still be minor errors in commercial relationship manager due to voice recognition software. Medication Administration(s) Medication Administration History Discontinued Medications Dicyclomine HCl (Dicyclomine Inj 10 Mg/Ml 2ml Amp) 10 mg IM X1 ONE Stop: 11/01/24 08:51 Last Admin: 11/01/24 09:13 Dose: Not Given Documented By: LEOLA Non-Admin Reason: Cancelled by Provider Dicyclomine HCl (Dicyclomine 10 Mg Capsule) 10 mg PO X1 ONE Stop: 11/01/24 09:02 Last Admin: 11/01/24 09:24 Dose: 10 mg Documented By: LEOLA Ketorolac Tromethamine (Ketorolac Inj 60 Mg/2 Ml Vial) 30 mg IM X1 ONE Stop: 11/01/24 08:13 Last Admin: 11/01/24 08:59 Dose: 30 mg Documented By: GOGO
[2024-11-01] MEDS: KETOROLAC INJ 60 MG/2 ML VIAL 30 MG IM (08:59)
[2024-11-01 09:09] LABS: Alanine Aminotransferase 32 U/L (10-49); Albumin, Serum 4.2 gm/dL (3.4-4.8); Albumin/Globulin Ratio 1.8 (1.2-2.2); Alkaline Phosphatase 91 U/L (46-116); Anion Gap 8 (7-16); Aspartate Amino Transferase 30 U/L (0-34); BUN/Creatinine Ratio 17 Ratio (12-20); Bilirubin,Total < 0.2 mg/dL (0.3-1.2); Blood Urea Nitrogen 15 mg/dL (9-23); Calcium 9.9 mg/dL (8.3-10.6); Calcium (Corrected) 9.9 mg/dL (8.5-10.1); Carbon Dioxide 31.3 mMol/L (20.0-31.0); Chloride 104 mMol/L (98-107); Creatinine (Component) 0.9 mg/dL (0.6-1.3); Estimated Creatinine Clearance 81.9 mL/min (>60); Globulin 2.4 gm/dL (2.3-3.5); Glucose 95 mg/dL (74-106); Lipase 45 U/L (12-53); Osmolality,Calculated 285 (275-295); Potassium 4.2 mMol/L (3.4-5.1); Sodium 143 mMol/L (136-145); Total Protein 6.6 gm/dL (5.7-8.2); eGFR > 60 See Note
[2024-11-01] MEDS: DICYCLOMINE 10 MG CAPSULE PO (09:24)
[2024-11-01 09:55] VITALS: BP 155/73; PULSE 67; RESP 16; TEMP 36.8; O2SAT 98
== END 2024-11-01 10:03 | disposition home or self-care (01) ==
PROVIDERS: Physician Assistant; PCP Family Medicine
DX: R10.2 Pelvic and perineal pain (principal)
CPT/HCPCS: 36415; 80053; 81001; 83690; 85025; 96372; 99283; J1885; A9270

== ENCOUNTER 2024-11-02 10:01 | Emergency (ER) | payer MEDICAID, SELFPAY ==
--- NOTE | 2024-11-02 10:20 | EDNOTE_ITS ---
<Statement entered by Marylou Andersen MD - 11/02/24 15:00> As co-signing physician, I was present and available for consult prn. I concur with the plan and care as documented by the midlevel provider. ED General RME/HPI General Chief complaint: Urogenital-Male Stated complaint: PAINFUL URINATION Time Seen by Provider: 11/02/24 10:04 Arrival date/time: 11/02/24 10:01 CC: Urinary catheter related pain HPI patient is here after complete workup yesterday, the patient has greater than 15 visits in the last 6 weeks for the same complaint. Currently the patient is afebrile nontoxic-appearing not in any acute distress draining clear yellow urine in his Melgar catheter into his bag. The last time the bag was drain was approximately 2 hours ago for a full bag. Patient denies nausea vomiting diarrhea headache shortness of breath or difficulty breathing. Patient states he has an appointment in the coming days for a referral to a urologist in [place] as he cannot return to [place]. Patient has no other complaints patient states clearly the shot from yesterday wore off , and that is why he is here today. Related Data Previous Rx's ?Medication ?Instructions ?Recorded hydrocodone 5 mg-acetaminophen 325 1 tab PO BID PRN pa in #10 tabs 09/20/24 mg tablet ibuprofen 800 mg tablet 800 mg PO TID PRN pain #30 t abs 09/20/24 tamsulosin 0.4 mg capsule (Flomax) 0.4 mg PO QDAY #20 caps 10/01/24 acetaminophen 300 mg-codeine 30 mg 1 tab PO Q8H PRN pa in #20 tabs 10/26/24 tablet acetaminophen 300 mg-codeine 30 mg 1 tab PO Q8H PRN pa in #20 tabs 10/26/24 tablet hydrocodone 5 mg-acetaminophen 325 1 tab PO BID PRN pa in #6 tabs 10/29/24 mg tablet ketorolac 10 mg tablet 10 mg PO Q8H #10 tabs Allergies Allergy/AdvReac Type Severity Reaction Status Date / Time No Known Allergies Allergy Verified 11/01/24 07:57 Review of Systems Review of Systems Narrative Review of Systems: GEN: No fever, no chills, no weight loss EYES: No discharge, no visual changes, no pain HEENT: No ear pain, no congestion, no sore throat PULM: No shortness of breath, no cough, no congestion CV: No chest pain, no dyspnea on exertion, no palpitations GI: No nausea, no vomiting, no diarrhea, + pain, no constipation : No frequency, no urgency, no dysuria MUSC/SKEL: No joint pain, no back pain SKIN: No rash PSYCH: No hallucinations, no depression HEME/LYMPH: No easy bleeding or bruising tendencies NEURO: No weakness, no headache Past Medical History Past Medical History NEUROLOGIC: Negative Neurological Disorders or Seizures CARDIAC: Negative Cardiac Disorders or Congestive Heart Failure RESPIRATORY: Negative Chronic Obstructive Pulmonary Disease (COPD) or Asthma GENITOURINARY: Positive Genitourinary Disorders, Kidney Stones and Benign Prostatic Hyperplasia; Negative Renal Disease MUSCULOSKELETAL: Positive Musculoskeletal Disorders and Degenerative Joint Disease ENDOCRINE: Negative Diabetes Mellitus Type 1 or Diabetes Mellitus Type 2 HEMATOLOGIC: Negative Sickle Cell Disease OTHER HISTORY: Negative Blood Transfusions, Blood Transfusion Reaction or Anesthesia Reactions Social History SMOKING STATUS: Current every day smoker SUBSTANCE USE: does not use ED Exam Narrative Physical exam: [General: Anxious but not in any acute distress Head normocephalic HEENT: Within acceptable limits Neck is supple nontender Chest equal chest rise nontender to palpation Respiratory: Clear to auscultation no wheezes crackles or rubs CV: Rate rhythm is regular no murmurs rubs or clicks Abdomen is flat, soft nontender no masses positive bowel sounds all 4 quadrants , Melgar catheter clean dry and intact site, draining yellow urine. Back: No CVA tenderness no spinous process tenderness from cervical spine thoracic and lumbar spine Skin: Intact no petechiae rash induration ulceration or crepitus Extremities: Moving all extremity against resistance cap refill less than 2 seconds neurosensory intact Neuro: Awake alert oriented x3 Glascow coma 15 no focal deficits] Course Quality Measures none Orders Category Date Time Status Ketorolac Inj [Toradol Inj] Med 11/02/24 10:20 Once 30 mg IM X1 ONE Discharge Plan Plan Patient Disposition: HOME (Self Care) Patient condition on transfer: Stable Prescriptions/Referrals Prescriptions/Med Rec: New ketorolac 10 mg tablet 10 mg PO Q8H Qty: 10 0RF Rx Instructions: maximum total duration of 5 days from all oral, intranasal, or parenteral formulations No Action tamsulosin [Flomax] 0.4 mg capsule 0.4 mg PO QDAY Qty: 20 0RF acetaminophen-codeine 300-30 mg tablet 1 tab PO Q8H PRN (Reason: pain) Qty: 20 0RF acetaminophen-codeine 300-30 mg tablet 1 tab PO Q8H PRN (Reason: pain) Qty: 20 0RF ibuprofen 800 mg tablet 800 mg PO TID PRN (Reason: pain) Qty: 30 0RF hydrocodone-acetaminophen 5-325 mg tablet 1 tab PO BID MDD 10 PRN (Reason: pain) Qty: 10 0RF hydrocodone-acetaminophen 5-325 mg tablet 1 tab PO BID MDD 10mg PRN (Reason: pain) Qty: 6 0RF Referrals: Luis Fernando Rodrigues MD [Physician] - In 1 week Problem List Clinical Impression: Chronic male pelvic pain Patient/Caregiver Discharge Instructions Education Materials: ED Pain Management: Chronic Print Language: Honduran Stand Alone Forms: Latoya Award Info., Patient Portal Info Letter PA/CECILIA Supervising Physician PA/PRINT PRODUCTION ASSOCIATE Supervising Physician: Nicolás Martini ENP [facility] Clinical Information Provided by patient Medical Records Reviewed [facility] Meds/Rx Considered, not Ordered None Labs/Rad/Tests considered, not Ordered None Chronic Illness/Social Conditions Add or document further as needed: 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 prescription of Toradol. Patient states he has a follow-up appointment and should follow-up with them.
[2024-11-02 10:24] VITALS: BP 165/80; PULSE 91; RESP 20; TEMP 36.7; O2SAT 99; BMI 21.5
[2024-11-02] MEDS: KETOROLAC INJ 60 MG/2 ML VIAL 30 MG IM (10:28)
== END 2024-11-02 10:55 | disposition home or self-care (01) ==
LOC: SERX 10:40
PROVIDERS: Emergency Provider Emergency Medicine; PCP Family Medicine
DX: R10.2 Pelvic and perineal pain (principal); G89.29 Other chronic pain; Z96.0 Presence of urogenital implants
CPT/HCPCS: 96372; 99282; J1885

== ENCOUNTER 2024-11-09 11:47 | Emergency (ER) | payer MEDICAID, SELFPAY ==
[2024-11-09 12:09] VITALS: BP 128/82; PULSE 88; RESP 16; TEMP 36.8; O2SAT 99; BMI 23.5
--- NOTE | 2024-11-09 12:23 | EDNOTE_ITS ---
ED Male Genitalurinary RME/HPI General Chief complaint: Urogenital-Male Stated complaint: Melgar draining, pain Time Seen by Provider: 11/09/24 11:52 Arrival date/time: 11/09/24 11:47 64-year-old male presents to the emergency department today for complaints of penile pain patient has Melgar catheter in place. Patient has bladder stones patient reports he recently went to [facility] and he is scheduled appointment to have intervention for his bladder stones in January. Patient was no fever nausea or vomiting Limitations: no limitations Related Data Previous Rx's ?Medication ?Instructions ?Recorded hydrocodone 5 mg-acetaminophen 325 1 tab PO BID PRN pa in #10 tabs 09/20/ mg tablet ibuprofen 800 mg tablet 800 mg PO TID PRN pain #30 t abs 09/20/24 tamsulosin 0.4 mg capsule (Flomax) 0.4 mg PO QDAY #20 caps 10/01/24 acetaminophen 300 mg-codeine 30 mg 1 tab PO Q8H PRN pa in #20 tabs 10/26/24 tablet acetaminophen 300 mg-codeine 30 mg 1 tab PO Q8H PRN pa in #20 tabs 10/26/24 tablet hydrocodone 5 mg-acetaminophen 325 1 tab PO BID PRN pa in #6 tabs 10/29/24 mg tablet ketorolac 10 mg tablet 10 mg PO Q8H #10 tabs hydrocodone 5 mg-acetaminophen 325 1 tab PO BID PRN pa in #14 tabs 11/09/24 mg tablet acetaminophen 300 mg-codeine 30 mg 1 tab PO Q8H PRN pa in #20 tabs 11/11/24 tablet ibuprofen 600 mg tablet 600 mg PO Q6H PRN pain #30 t abs 11/11/24 Allergies Allergy/AdvReac Type Severity Reaction Status Date / Time No Known Allergies Allergy Verified 11/13/24 13:43 Review of Systems Review of Systems Systems Reviewed: All systems reviewed, normal except as documented Constitutional Constitutional: Reports system reviewed and no additional complaints, except as documented, Denies fever(s) and Denies headache(s) Eyes Eyes: Reports system reviewed and no additional complaints, except as documented and Denies blurry vision ENT Ears, Nose, Mouth, and Throat: Reports system reviewed and no additional complaints, except as documented, Denies headache(s), Denies nasal congestion and Denies nasal discharge Cardiovascular Cardiovascular: Reports system reviewed and no additional complaints, except as documented, Denies chest pain and Denies dyspnea Respiratory Respiratory: Reports system reviewed and no additional complaints, except as documented, Denies chest congestion, Denies cough and Denies dyspnea Gastrointestinal Gastrointestinal: Reports system reviewed and no additional complaints, except as documented and Denies abdominal pain Genitourinary Genitourinary: Reports system reviewed and no additional complaints, except as documented, Denies dysuria and Reports other (Melgar catheter in place penile pain) Integumentary/Breasts Skin/Breast: Reports system reviewed and no additional complaints, except as documented and Denies rash Neurologic Neurologic: Reports system reviewed and no additional complaints, except as documented, Reports as per HPI and Denies headache(s) Past Medical History Past Medical History NEUROLOGIC: Negative Neurological Disorders or Seizures CARDIAC: Negative Cardiac Disorders or Congestive Heart Failure RESPIRATORY: Negative Chronic Obstructive Pulmonary Disease (COPD) or Asthma GENITOURINARY: Positive Genitourinary Disorders, Kidney Stones and Benign Prostatic Hyperplasia; Negative Renal Disease MUSCULOSKELETAL: Positive Musculoskeletal Disorders and Degenerative Joint Disease ENDOCRINE: Negative Diabetes Mellitus Type 1 or Diabetes Mellitus Type 2 HEMATOLOGIC: Negative Sickle Cell Disease OTHER HISTORY: Negative Blood Transfusions, Blood Transfusion Reaction or Anesthesia Reactions Social History SMOKING STATUS: Current every day smoker SUBSTANCE USE: does not use ED Exam General Limitations: Present no limitations General appearance: Present alert and in no apparent distress Head Head exam: Present atraumatic Eye Eye exam: Present normal appearance, PERRL and EOMI ENT ENT exam: Present normal exam, normal oropharynx and mucous membranes moist Neck Neck exam: Present normal inspection, full ROM and trachea midline Chest Chest inspection: Present normal inspection and symmetric chest wall rise Respiratory Respiratory exam: Present normal lung sounds bilaterally Cardiovascular Cardiovascular exam: Present regular rate, normal rhythm and normal heart sounds Abdominal Exam Abdominal exam: Present soft and normal bowel sounds exam: Present other (Melgar catheter in place penile pain) Extremities Exam Extremities exam: Present normal inspection and full ROM Back Exam Back exam: Present normal inspection and full ROM Neurological Exam Neurological exam: Present alert, oriented X3, CN II-XII intact, normal gait and reflexes normal; Absent motor sensory deficit Psychiatric Psychiatric exam: Present normal affect and normal mood Skin Skin exam: Present warm, dry, intact and normal color Course Quality Measures none Orders Category Date Time Status HYDROcodone*/APAP 5325 [[place] 5/325] Med 11/09/24 12:23 Discontinued 1 tab PO X1 ONE Vital Signs Vital signs: Vital Signs Temperature 98.2 F 11/09/24 12:09 Pulse Rate 88 11/09/24 12:09 Respiratory Rate 16 11/09/24 12:09 Blood Pressure 128/82 11/09/24 12:09 Pulse Oximetry (%) 99 11/09/24 12:09 Oxygen Delivery Method Room Air 11/09/24 12:09 O2 saturation 99% room air with normal limits Urogenital - Male MDM Narrative MDM Narrative:: 64-year-old male presents to the emergency department today for complaints of penile pain patient has Melgar catheter in place. Patient has bladder stones patient reports he recently went to [facility] and he is scheduled appointment to have intervention for his bladder stones in January. Patient was no fever nausea or vomiting On exam patient well-appearing patient does not appear ill or toxic no acute distress Patient given [place] discharged home with [place] Patient is instructed to follow-up with his PCP in order to get pain management till he follows up with specialist For emergent concerns patient is instructed return for reevaluation Patient data External records reviewed:: [facility] previous records Clinical information provided by:: patient Social determinants that could affect healthcare access:: none Patient has the following chronic illnesses:: See history How is presenting disease/condition affected by chronic disease/condition?: caused by Evaluation data The following diagnostics were reviewed and interpreted by me:: other (specify) Lab and/or radiology exams considered but not ordered:: N/A Interpretation Summary: N/A Medications / Prescriptions Medications or Prescriptions considered but not ordered:: Given Medication administrations:: Medication Administration History Discontinued Medications Hydrocodone Bitart/Acetaminophen (Hydrocodone/Apap 5/325 Tablet) 1 tab PO X1 ONE Stop: 11/09/24 12:24 Last Admin: 11/09/24 12:31 Dose: 1 tab Documented By: Given Consultations Consultation(s) initiated? (list below): No Diagnosis Urogenital Male Differential Diagnosis: urinary tract infection, urethritis and inguinal hernia Most likely diagnosis given after review of the tests above:: Female pain Admission Indicated Admission indicated?: not indicated Admission Request Was there a request for admission?: No Disposition Plan Disposition Plan: Discharge Discharge Attestation Discharge Attestation: The patient and all family members were given an opportunity to ask questions and understood the discharge instructions. Discharge instructions specifically effects, indications for sooner follow up or return to the emergency department, and the expected course of current diagnosis. Patient condition: Stable Discharge Plan Plan Patient Disposition: HOME (Self Care) Discharge Disposition comment: Stable Prescriptions/Referrals Prescriptions/Med Rec: New hydrocodone-acetaminophen 5-325 mg tablet 1 tab PO BID MDD 10 PRN (Reason: pain) Qty: 14 0RF No Action tamsulosin [Flomax] 0.4 mg capsule 0.4 mg PO QDAY Qty: 20 0RF acetaminophen-codeine 300-30 mg tablet 1 tab PO Q8H PRN (Reason: pain) Qty: 20 0RF acetaminophen-codeine 300-30 mg tablet 1 tab PO Q8H PRN (Reason: pain) Qty: 20 0RF ibuprofen 600 mg tablet 600 mg PO Q6H PRN (Reason: pain) Qty: 30 0RF acetaminophen-codeine 300-30 mg tablet 1 tab PO Q8H PRN (Reason: pain) Qty: 20 0RF ibuprofen 800 mg tablet 800 mg PO TID PRN (Reason: pain) Qty: 30 0RF hydrocodone-acetaminophen 5-325 mg tablet 1 tab PO BID MDD 10 PRN (Reason: pain) Qty: 10 0RF hydrocodone-acetaminophen 5-325 mg tablet 1 tab PO BID MDD 10mg PRN (Reason: pain) Qty: 6 0RF ketorolac 10 mg tablet 10 mg PO Q8H Qty: 10 0RF Rx Instructions: maximum total duration of 5 days from all oral, intranasal, or parenteral formulations Problem List Clinical Impression: Pain in penis, Melgar catheter in place Patient/Caregiver Discharge Instructions Education Materials: ED Melgar Catheter, Care Additional Instructions: Please follow up with your primary care doctor in the next 24-48hrs for any worsening symptoms return here immediately Print Language: Latvian Stand Alone Forms: Latoya Award Info., Patient Portal Info Letter PA/PROFILING MACHINE SET UP OPERATOR TOOL Supervising Physician PA/PROFILING MACHINE SET UP OPERATOR TOOL Supervising Physician: Dr. payne
[2024-11-09] MEDS: HYDROcodone/APAP 5/325 TABLET 1 TAB PO (12:31)
== END 2024-11-09 12:33 | disposition home or self-care (01) ==
PROVIDERS: Emergency Provider Family Medicine
DX: N48.89 Other specified disorders of penis (principal); N21.0 Calculus in bladder
CPT/HCPCS: 99282; A9270

== ENCOUNTER 2024-11-11 00:18 | Emergency (ER) | payer MEDICAID, SELFPAY ==
[2024-11-11 00:19] VITALS: PULSE 76; RESP 20; O2SAT 99
[2024-11-11 00:27] VITALS: BP 127/78; PULSE 90; RESP 19; TEMP 36.3; O2SAT 97; BMI 22.8
--- NOTE | 2024-11-11 00:36 | EDNOTE_ITS ---
ED Male Genitalurinary RME/HPI General Chief complaint: General Adult/Misc Complain Stated complaint: LOW ABD LOW BACK PAIN Time Seen by Provider: 11/11/24 00:36 Source: patient, RN notes reviewed and old records reviewed Arrival date/time: 11/11/24 00:18 Mode of arrival: wheelchair Limitations: no limitations RME / HPI RME / HPI Narrative: 64yom with history of large bladder stones presents to the ED for penile pain. Patient has been seen multiple times in ED for similar complaint. Today he is requesting pain medicine and Melgar catheter placement. No fever, nausea/vomiting, abdominal/flank or dysuria reported. 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 Related Data Previous Rx's ?Medication ?Instructions ?Recorded hydrocodone 5 mg-acetaminophen 325 1 tab PO BID PRN pa in #10 tabs 09/20/24 mg tablet ibuprofen 800 mg tablet 800 mg PO TID PRN pain #30 t abs 09/20/24 tamsulosin 0.4 mg capsule (Flomax) 0.4 mg PO QDAY #20 caps 10/01/24 acetaminophen 300 mg-codeine 30 mg 1 tab PO Q8H PRN pa in #20 tabs 10/26/24 tablet acetaminophen 300 mg-codeine 30 mg 1 tab PO Q8H PRN pa in #20 tabs 10/26/24 tablet hydrocodone 5 mg-acetaminophen 325 1 tab PO BID PRN pa in #6 tabs 10/29/24 mg tablet ketorolac 10 mg tablet 10 mg PO Q8H #10 tabs hydrocodone 5 mg-acetaminophen 325 1 tab PO BID PRN pa in #14 tabs 11/09/24 mg tablet acetaminophen 300 mg-codeine 30 mg 1 tab PO Q8H PRN pa in #20 tabs 11/11/24 tablet ibuprofen 600 mg tablet 600 mg PO Q6H PRN pain #30 t abs 11/11/24 Allergies Allergy/AdvReac Type Severity Reaction Status Date / Time No Known Allergies Allergy Verified 11/11/24 13:22 Review of Systems Review of Systems Systems Reviewed: All systems reviewed, normal except as documented Genitourinary Genitourinary: Reports genital pain Past Medical History Past Medical History NEUROLOGIC: Negative Neurological Disorders or Seizures CARDIAC: Negative Cardiac Disorders or Congestive Heart Failure RESPIRATORY: Negative Chronic Obstructive Pulmonary Disease (COPD) or Asthma GENITOURINARY: Positive Genitourinary Disorders, Kidney Stones and Benign Prostatic Hyperplasia; Negative Renal Disease MUSCULOSKELETAL: Positive Musculoskeletal Disorders and Degenerative Joint Disease ENDOCRINE: Negative Diabetes Mellitus Type 1 or Diabetes Mellitus Type 2 HEMATOLOGIC: Negative Sickle Cell Disease OTHER HISTORY: Negative Blood Transfusions, Blood Transfusion Reaction or Anesthesia Reactions Social History SMOKING STATUS: Current every day smoker SUBSTANCE USE: does not use ED Exam General Limitations: Present no limitations General appearance: Present alert, in no apparent distress and other (poor hygiene) Head Head exam: Present atraumatic and normocephalic Eye Eye exam: Present normal appearance, PERRL and EOMI ENT ENT exam: Present normal exam and mucous membranes moist Neck Neck exam: Present normal inspection and full ROM Chest Chest inspection: Present normal inspection and symmetric chest wall rise Respiratory Respiratory exam: Present normal lung sounds bilaterally; Absent respiratory distress Cardiovascular Cardiovascular exam: Present regular rate and normal rhythm Abdominal Exam Abdominal exam: Present soft; Absent distention, tenderness, guarding or rebound Extremities Exam Extremities exam: Present normal inspection and full ROM Back Exam Back exam: Absent CVA tenderness (R) or CVA tenderness (L) Neurological Exam Neurological exam: Present alert and oriented X3 Psychiatric Psychiatric exam: Present normal affect and normal mood Skin Skin exam: Present warm, dry and intact Course Quality Measures none Orders Category Date Time Status HYDROcodone*/APAP 5/325 [[place] 5/325] Med 11/11/24 00:35 Discontinued 1 tab PO X1 ONE Ketorolac Inj [Toradol Inj] Med 11/11/24 00:35 Discontinued 30 mg IM X1 ONE Lidocaine Jelly 2% Urojet [Xylocaine Jelly 2% Urojet] Med 11/11/24 00:49 Discontinued See Dose Instructions TOP X1 ONE Vital Signs Vital signs: Vital Signs Temperature 97.4 F 11/11/24 00:27 Pulse Rate 90 11/11/24 00:27 Respiratory Rate 19 11/11/24 00:27 Blood Pressure 127/78 11/11/24 00:27 Pulse Oximetry (%) 97 11/11/24 00:27 Oxygen Delivery Method Room Air 11/11/24 00:27 Urogenital - Male MDM Narrative MDM Narrative:: 64yom with history of large bladder stones presents to the ED for penile pain. Patient has been seen multiple times in ED for similar complaint. Today he is requesting pain medicine and Melgar catheter placement. No fever, nausea/vomiting, abdominal/flank or dysuria reported. 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 Melgar catheter placed in ED. Strongly encouraged follow-up at scheduled appointment. Stable for discharge, RTED precautions given Patient data External records reviewed:: [facility] previous records (11/09/2024 ED visit for penile pain) Clinical information provided by:: patient Social determinants that could affect healthcare access:: other (specify) (Poor access to healthcare) Patient has the following chronic illnesses:: Bladder stones How is presenting disease/condition affected by chronic disease/condition?: caused by Evaluation data The following diagnostics were reviewed and interpreted by me:: other (specify) (None) Lab and/or radiology exams considered but not ordered:: None Interpretation Summary: na Medications / Prescriptions Medications or Prescriptions considered but not ordered:: No antibiotics recommended at this time Medication administrations:: Medication Administration History Discontinued Medications Hydrocodone Bitart/Acetaminophen (Hydrocodone/Apap 5/325 Tablet) 1 tab PO X1 ONE Stop: 11/11/24 00:36 Last Admin: 11/11/24 00:46 Dose: 1 tab Documented By: GABY Ketorolac Tromethamine (Ketorolac Inj 60 Mg/2 Ml Vial) 30 mg IM X1 ONE Stop: 11/11/24 00:36 Last Admin: 11/11/24 00:47 Dose: 30 mg Documented By: GABY Lidocaine HCl (Lidocaine Jelly 2% (Urojet) 10 Ml Tube) 0 ml TOP X1 ONE Stop: 11/11/24 00:50 Last Admin: 11/11/24 01:03 Dose: 10 ml Documented By: GABY Above medications administered in ED Consultations Consultation(s) initiated? (list below): No Diagnosis Urogenital Male Differential Diagnosis: urinary tract infection, urethritis, epididymitis and acute retention of urine Most likely diagnosis given after review of the tests above:: Penile pain, Melgar catheter placement Admission Indicated Admission indicated?: not indicated Admission Request Was there a request for admission?: No Disposition Plan Disposition Plan: Discharge Discharge Attestation Discharge Attestation: The patient and all family members were given an opportunity to ask questions and understood the discharge instructions. Discharge instructions specifically effects, indications for sooner follow up or return to the emergency department, and the expected course of current diagnosis. Patient condition: Stable Discharge Plan Plan Patient Disposition: HOME (Self Care) Patient condition on transfer: Stable Prescriptions/Referrals Prescriptions/Med Rec: New ibuprofen 600 mg tablet 600 mg PO Q6H PRN (Reason: pain) Qty: 30 0RF No Action tamsulosin [Flomax] 0.4 mg capsule 0.4 mg PO QDAY Qty: 20 0RF acetaminophen-codeine 300-30 mg tablet 1 tab PO Q8H PRN (Reason: pain) Qty: 20 0RF acetaminophen-codeine 300-30 mg tablet 1 tab PO Q8H PRN (Reason: pain) Qty: 20 0RF hydrocodone-acetaminophen 5-325 mg tablet 1 tab PO BID MDD 10 PRN (Reason: pain) Qty: 14 0RF acetaminophen-codeine 300-30 mg tablet 1 tab PO Q8H PRN (Reason: pain) Qty: 20 0RF ibuprofen 800 mg tablet 800 mg PO TID PRN (Reason: pain) Qty: 30 0RF hydrocodone-acetaminophen 5-325 mg tablet 1 tab PO BID MDD 10 PRN (Reason: pain) Qty: 10 0RF hydrocodone-acetaminophen 5-325 mg tablet 1 tab PO BID MDD 10mg PRN (Reason: pain) Qty: 6 0RF ketorolac 10 mg tablet 10 mg PO Q8H Qty: 10 0RF Rx Instructions: maximum total duration of 5 days from all oral, intranasal, or parenteral formulations Problem List Clinical Impression: Encounter for Melgar catheter replacement, Penile pain Patient/Caregiver Discharge Instructions Print Language: Danish Stand Alone Forms: Latoya Award Info., Patient Portal Info Letter PA/UNDERWRITING SPECIALIST Supervising Physician PA/UNDERWRITING SPECIALIST Supervising Physician: Juventino
[2024-11-11] MEDS: HYDROcodone/APAP 5/325 TABLET 1 TAB PO (00:46)
[2024-11-11] MEDS: KETOROLAC INJ 60 MG/2 ML VIAL 30 MG IM (00:47)
[2024-11-11] MEDS: LIDOCAINE JELLY 2% (Urojet) 10 ML TUBE TOP (01:03)
== END 2024-11-11 02:49 | disposition home or self-care (01) ==
LOC: SERX 04:03
PROVIDERS: Emergency Provider Emergency Medicine; PCP Family Medicine
DX: N48.89 Other specified disorders of penis (principal)
CPT/HCPCS: 96372; 99283; J1885; A9270

== ENCOUNTER 2024-11-11 13:19 | Emergency (ER) | payer MEDICAID, SELFPAY ==
[2024-11-11 13:41] VITALS: BP 138/79; PULSE 92; RESP 20; TEMP 36.7; O2SAT 98
--- NOTE | 2024-11-11 13:59 | EDNOTE_ITS ---
<Statement entered by Marylou Andersen MD - 11/12/24 06:28> As co-signing physician, I was present and available for consult prn. I concur with the plan and care as documented by the midlevel provider. ED Male Genitalurinary RME/HPI General Chief complaint: Urogenital-Male Stated complaint: Melgar catheter pain Time Seen by Provider: 11/11/24 13:34 Arrival date/time: 11/11/24 13:19 RME / HPI RME / HPI Narrative: 65-year-old male patient came in for evaluation regarding ureteral pain. Patient is known to this emergency room coming for penile pain/urethral pain, patient had a Melgar catheter changed yesterday. Patient is waiting to be seen by urologist for further evaluation. He had a chronic Melgar catheter for a while now. Denies any fever denies any vomiting denies any other complaints patient not taking any medication. Related Data Previous Rx's ?Medication ?Instructions ?Recorded hydrocodone 5 mg-acetaminophen 325 1 tab PO BID PRN pa in #10 tabs 09/20/24 mg tablet ibuprofen 800 mg tablet 800 mg PO TID PRN pain #30 t abs 09/20/24 tamsulosin 0.4 mg capsule (Flomax) 0.4 mg PO QDAY #20 caps 10/01/24 acetaminophen 300 mg-codeine 30 mg 1 tab PO Q8H PRN pa in #20 tabs 10/26/24 tablet acetaminophen 300 mg-codeine 30 mg 1 tab PO Q8H PRN pa in #20 tabs 10/26/24 tablet hydrocodone 5 mg-acetaminophen 325 1 tab PO BID PRN pa in #6 tabs 10/29/24 mg tablet ketorolac 10 mg tablet 10 mg PO Q8H #10 tabs hydrocodone 5 mg-acetaminophen 325 1 tab PO BID PRN pa in #14 tabs 11/09/24 mg tablet acetaminophen 300 mg-codeine 30 mg 1 tab PO Q8H PRN pa in #20 tabs 11/11/24 tablet ibuprofen 600 mg tablet 600 mg PO Q6H PRN pain #30 t abs 11/11/24 Allergies Allergy/AdvReac Type Severity Reaction Status Date / Time No Known Allergies Allergy Verified 11/11/24 13:22 Review of Systems Review of Systems Narrative Review of Systems: Review of system reviewed and within normal limits except mentioned in HPI ED Exam Narrative Physical exam: VITAL SIGNS: Reviewed. GENERAL APPEARANCE: Alert and interactive, follows commands, no acute distress, HEAD AND FACE: Non-traumatic. ENT: PERRL, pink conjunctivitis, eyelid no trauma, Mucous membrane moist. NECK: Supple, nontender, no nuchal rigidity. CHEST: No tenderness, no crepitus, no paradoxical movement, no retractions. LUNGS: Clear, well ventilated, symmetric, no rales, no wheezing, no ronchi, no stridor, good breath sounds bilaterally. HEART: Regular rate, regular rhythm, no murmur, no gallops. ABDOMEN: Soft, positive bowel sounds, nondistended, no guarding, nontender, no rebound, no masses, RECTAL: Deferred. GENITAL: Melgar catheter intact, I did not notice any redness on the penis, Melgar catheter is working and draining well NEUROLOGICAL: Gross motor function intact sensory function intact, Appropriate for age. MUSCULOSKELETAL: low back nontender, full range of motion. EXTREMITIES: Nontender, full range of motion. SKIN: Color pink, dry, no rash, no lacerations, no abrasions, no contusions. LYMPHATICS: Deferred. Course Quality Measures none Orders Category Date Time Status ACETAMINOPHEN w/COD 300-30 [Tylenol w/Cod #3] Med 11/11/24 13:58 Once 1 tab PO X1 ONE Ketorolac Inj [Toradol Inj] Med 11/11/24 13:58 Once 30 mg IM X1 ONE Vital Signs Vital signs: Vital Signs Temperature 98.0 F 11/11/24 13:41 Pulse Rate 92 11/11/24 13:41 Respiratory Rate 20 11/11/24 13:41 Blood Pressure 138/79 H 11/11/24 13:41 Pulse Oximetry (%) 98 11/11/24 13:41 Oxygen Delivery Method Room Air 11/11/24 13:41 Urogenital - Male MDM Narrative MDM Narrative:: 65-year-old male patient came in for evaluation regarding ureteral pain. Patient is known to this emergency room coming for penile pain/urethral pain, patient had a Melgar catheter changed yesterday. Patient is waiting to be seen by urologist for further evaluation. He had a chronic Melgar catheter for a while now. Denies any fever denies any vomiting denies any other complaints patient not taking any medication. Patient received Toradol and Tylenol with codeine. Patient was advised to keep calling the urologist to be seen for ureteral pain. Patient agrees with the plan. Patient appears nontoxic and hemodynamically stable .Decision to discharge the patient. The patient/family was given an opportunity to ask questions and understood their discharge instructions. Discharge instructions specifically included follow up provider and time frame, current and/or new medications and possible side effects, indications for sooner follow up or return to the emergency department, and the expected course of current diagnosis. Patient reports feeling better as well and giving evidence of significant clinical improvement, I believe patient is now a candidate for discharge. Patient data External records reviewed:: None Clinical information provided by:: patient and family Social determinants that could affect healthcare access:: none Patient has the following chronic illnesses:: BPH How is presenting disease/condition affected by chronic disease/condition?: exacerbated by Evaluation data The following diagnostics were reviewed and interpreted by me:: other (specify) (None) Lab and/or radiology exams considered but not ordered:: None Interpretation Summary: None Medications / Prescriptions Medications or Prescriptions considered but not ordered:: None Medication administrations:: Toradol IM and Tylenol codeine Consultations Consultation(s) initiated? (list below): No Diagnosis Urogenital Male Differential Diagnosis: urethritis and other (Penile pain urethral pain) Most likely diagnosis given after review of the tests above:: Ureteral pain status post Melgar catheter chronic Admission Indicated Admission indicated?: not indicated Admission Request Was there a request for admission?: No Disposition Plan Disposition Plan: Discharge Discharge Attestation Discharge Attestation: The patient and all family members were given an opportunity to ask questions and understood the discharge instructions. Discharge instructions specifically effects, indications for sooner follow up or return to the emergency department, and the expected course of current diagnosis. Patient condition: Stable Discharge Plan Plan Patient Disposition: HOME (Self Care) Discharge Disposition comment: Stable Prescriptions/Referrals Prescriptions/Med Rec: New acetaminophen-codeine 300-30 mg tablet 1 tab PO Q8H PRN (Reason: pain) Qty: 20 0RF No Action tamsulosin [Flomax] 0.4 mg capsule 0.4 mg PO QDAY Qty: 20 0RF acetaminophen-codeine 300-30 mg tablet 1 tab PO Q8H PRN (Reason: pain) Qty: 20 0RF acetaminophen-codeine 300-30 mg tablet 1 tab PO Q8H PRN (Reason: pain) Qty: 20 0RF hydrocodone-acetaminophen 5-325 mg tablet 1 tab PO BID MDD 10 PRN (Reason: pain) Qty: 14 0RF ibuprofen 600 mg tablet 600 mg PO Q6H PRN (Reason: pain) Qty: 30 0RF ibuprofen 800 mg tablet 800 mg PO TID PRN (Reason: pain) Qty: 30 0RF hydrocodone-acetaminophen 5-325 mg tablet 1 tab PO BID MDD 10 PRN (Reason: pain) Qty: 10 0RF hydrocodone-acetaminophen 5-325 mg tablet 1 tab PO BID MDD 10mg PRN (Reason: pain) Qty: 6 0RF ketorolac 10 mg tablet 10 mg PO Q8H Qty: 10 0RF Rx Instructions: maximum total duration of 5 days from all oral, intranasal, or parenteral formulations Problem List Clinical Impression: Chronic pain in penis, Melgar catheter in place Patient/Caregiver Discharge Instructions Discharge Activity: activity as tolerated Education Materials: Medicine for Pain Additional Instructions: Thank you for the opportunity for serving you today. You are stable for discharged . You are advised to: Follow-up with your PCP in 1 to 2 days Follow-up with your referral to urologist Return to ED for worsening of symptoms Increase oral fluids Take medication as prescribed Print Language: Swedish Stand Alone Forms: Latoya Award Info., Patient Portal Info Letter ALPHONSO/CECILIA Supervising Physician ALPHONSO/CECILIA Supervising Physician: MD Ganesh
[2024-11-11] MEDS: KETOROLAC INJ 60 MG/2 ML VIAL 30 MG IM (14:05)
[2024-11-11] MEDS: ACETAMINOPHEN w/COD 300-30 TABLET 1 TAB PO (14:05)
== END 2024-11-11 14:47 | disposition home or self-care (01) ==
PROVIDERS: Emergency Provider Emergency Medicine; PCP Family Medicine
DX: T83.84XA Pain due to genitourinary prosthetic devices, implants and grafts, initial encounter (principal); G89.28 Other chronic postprocedural pain; Y73.1 Therapeutic (nonsurgical) and rehabilitative gastroenterology and urology devices associated with adverse incidents; Y84.6 Urinary catheterization as the cause of abnormal reaction of the patient, or of later complication, without mention of misadventure at the time of the procedure
CPT/HCPCS: 96372; 99283; J1885; A9270

== ENCOUNTER 2024-11-12 10:23 | Emergency (ER) | payer MEDICAID, SELFPAY ==
[2024-11-12 10:23] VITALS: BMI 21.5
[2024-11-12 10:43] VITALS: BP 162/82; PULSE 83; RESP 18; TEMP 36.6; O2SAT 98
--- NOTE | 2024-11-12 10:59 | EDNOTE_ITS ---
<Statement entered by Marylou Andersen MD - 11/27/24 06:26> As co-signing physician, I was present and available for consult prn. I concur with the plan and care as documented by the midlevel provider. ED Male Genitalurinary RME/HPI General Chief complaint: General Adult/Misc Complain Stated complaint: GROIN PAIN, 01/05 Time Seen by Provider: 11/12/24 10:43 Source: patient Arrival date/time: 11/12/24 10:23 64-year-old male with a history of BPH and a chronic catheter presents to the emergency room with a chief complaint of urethral pain. Mode of arrival: ambulatory Limitations: no limitations Related Data Previous Rx's ?Medication ?Instructions ?Recorded hydrocodone 5 mg-acetaminophen 325 1 tab PO BID PRN pa in #10 tabs 09/20/24 mg tablet ibuprofen 800 mg tablet 800 mg PO TID PRN pain #30 t abs 09/20/24 tamsulosin 0.4 mg capsule (Flomax) 0.4 mg PO QDAY #20 caps 10/01/24 acetaminophen 300 mg-codeine 30 mg 1 tab PO Q8H PRN pa in #20 tabs 10/26/24 tablet acetaminophen 300 mg-codeine 30 mg 1 tab PO Q8H PRN pa in #20 tabs 10/26/24 tablet hydrocodone 5 mg-acetaminophen 325 1 tab PO BID PRN pa in #6 tabs 10/29/24 mg tablet ketorolac 10 mg tablet 10 mg PO Q8H #10 tabs hydrocodone 5 mg-acetaminophen 325 1 tab PO BID PRN pa in #14 tabs 11/09/24 mg tablet acetaminophen 300 mg-codeine 30 mg 1 tab PO Q8H PRN pa in #20 tabs 11/11/24 tablet ibuprofen 600 mg tablet 600 mg PO Q6H PRN pain #30 t abs 11/11/24 Allergies Allergy/AdvReac Type Severity Reaction Status Date / Time No Known Allergies Allergy Verified 11/12/24 10:25 Review of Systems Review of Systems Systems Reviewed: All systems reviewed, normal except as documented Constitutional Constitutional: Reports system reviewed and no additional complaints, except as documented, Denies fatigue, Denies fever(s), Denies headache(s) and Denies weakness Eyes Eyes: Reports system reviewed and no additional complaints, except as documented, Denies blurry vision and Denies change in vision ENT Ears, Nose, Mouth, and Throat: Reports system reviewed and no additional complaints, except as documented, Denies otalgia, Denies headache(s), Denies nasal congestion, Denies throat swelling and Denies vertigo Cardiovascular Cardiovascular: Reports system reviewed and no additional complaints, except as documented, Denies chest pain, Denies dyspnea and Denies dyspnea on exertion Respiratory Respiratory: Reports system reviewed and no additional complaints, except as documented, Denies chest congestion, Denies cough, Denies dyspnea, Denies dyspnea on exertion and Denies wheezing Gastrointestinal Gastrointestinal: Reports system reviewed and no additional complaints, except as documented, Denies abdominal pain, Denies cramping, Denies nausea and Denies vomiting Genitourinary Genitourinary: Reports system reviewed and no additional complaints, except as documented, Denies dysuria and Denies hematuria Musculoskeletal Musculoskeletal: Reports system reviewed and no additional complaints, except as documented and Denies back pain Integumentary/Breasts Skin/Breast: Reports system reviewed and no additional complaints, except as documented and Denies wounds Neurologic Neurologic: Reports system reviewed and no additional complaints, except as documented, Denies confusion, Denies headache(s), Denies lack of coordination, Denies vertigo and Denies weakness Psychiatric Psychiatric: Reports system reviewed and no additional complaints, except as documented, Denies anxiety, Denies confusion, Denies depression, Denies paranoia, Denies suicidal ideation and Denies tactile hallucinations Endocrine Endocrine: Reports system reviewed and no additional complaints, except as documented and Denies fatigue Hematologic/Lymphatic Hematologic/Lymphatic: Reports system reviewed and no additional complaints, except as documented and Denies lymphadenopathy Allergic/Immunologic Allergic/Immunologic: Reports system reviewed and no additional complaints, except as documented, Denies throat swelling, Denies urticaria and Denies wheezing Past Medical History Past Medical History NEUROLOGIC: Negative Neurological Disorders or Seizures CARDIAC: Negative Cardiac Disorders or Congestive Heart Failure RESPIRATORY: Negative Chronic Obstructive Pulmonary Disease (COPD) or Asthma GENITOURINARY: Positive Genitourinary Disorders, Kidney Stones and Benign Prostatic Hyperplasia; Negative Renal Disease MUSCULOSKELETAL: Positive Musculoskeletal Disorders and Degenerative Joint Disease ENDOCRINE: Negative Diabetes Mellitus Type 1 or Diabetes Mellitus Type 2 HEMATOLOGIC: Negative Sickle Cell Disease OTHER HISTORY: Negative Blood Transfusions, Blood Transfusion Reaction or Ane sthesia Reactions Social History SMOKING STATUS: Current every day smoker SUBSTANCE USE: does not use ED Exam General Limitations: Present no limitations General appearance: Present alert and in no apparent distress Head Head exam: Present atraumatic Eye Eye exam: Present normal appearance, PERRL and EOMI ENT ENT exam: Present normal exam, normal oropharynx and mucous membranes moist Neck Neck exam: Present normal inspection, full ROM and trachea midline Chest Chest inspection: Present normal inspection and symmetric chest wall rise Respiratory Respiratory exam: Present normal lung sounds bilaterally Cardiovascular Cardiovascular exam: Present regular rate, normal rhythm and normal heart sounds Abdominal Exam Abdominal exam: Present soft and normal bowel sounds Extremities Exam Extremities exam: Present normal inspection and full ROM Back Exam Back exam: Present normal inspection and full ROM Neurological Exam Neurological exam: Present alert, oriented X3 and CN II-XII intact Psychiatric Psychiatric exam: Present normal affect and normal mood Skin Skin exam: Present warm, dry, intact and normal color Course Quality Measures none Orders Category Date Time Status HYDROcodone*/APAP 5/325 [[place] 5/325] Med 11/12/24 10:55 Discontinued 1 tab PO X1 ONE Ketorolac Inj [Toradol Inj] Med 11/12/24 10:50 Discontinued 30 mg IM X1 ONE Vital Signs Vital signs: Vital Signs Temperature 97.9 F 11/12/24 10:43 Pulse Rate 83 11/12/24 10:43 Respiratory Rate 18 11/12/24 10:43 Blood Pressure 162/82 H 11/12/24 10:43 Pulse Oximetry (%) 98 11/12/24 10:43 Oxygen Delivery Method Room Air 11/12/24 10:43 O2 saturation 90% within normal limits Urogenital - Male MDM Narrative MDM Narrative:: 64-year-old male with a history of BPH and a chronic catheter presents to the emergency room with a chief complaint of urethral pain. Patient is hemodynamically stable and in no apparent distress. Patient was seen here yesterday and is here multiple times a week for urethral pain or change of a [place] catheter. Patient states he has seen his primary care provider and is awaiting to see another urologist. Patient states he is here for Toradol shot as that is only thing that calms his pain. A Toradol shot was given and the patient was discharged Patient was discharged and educated to follow-up with primary care provider in the next 24 to 48 hours and return to the emergency room for any evidence of worsening signs or symptoms Patient data External records reviewed:: [facility] previous records Clinical information provided by:: patient Social determinants that could affect healthcare access:: none Patient has the following chronic illnesses:: No chronic illness How is presenting disease/condition affected by chronic disease/condition?: no chronic disease Evaluation data The following diagnostics were reviewed and interpreted by me:: lab results and radiology exam(s) Lab and/or radiology exams considered but not ordered:: Labs and radiology exams considered and ordered Interpretation Summary: N/A Medications / Prescriptions Medications or Prescriptions considered but not ordered:: Medication given Medication administrations:: Medication Administration History Discontinued Medications Hydrocodone Bitart/Acetaminophen (Hydrocodone/Apap 5/325 Tablet) 1 tab PO X1 ONE Stop: 11/12/24 10:56 Last Admin: 11/12/24 11:02 Dose: 1 tab Documented By: LEOLA Ketorolac Tromethamine (Ketorolac Inj 60 Mg/2 Ml Vial) 30 mg IM X1 ONE Stop: 11/12/24 10:51 Last Admin: 11/12/24 11:02 Dose: 30 mg Documented By: LEOLA Medication given Consultations Consultation(s) initiated? (list below): No Diagnosis Urogenital Male Differential Diagnosis: urinary tract infection, urethritis, p rostatitis, acute retention of urine and other (Urethral pain) Most likely diagnosis given after review of the tests above:: Urethral pain Admission Indicated Admission indicated?: not indicated Admission Request Was there a request for admission?: No Disposition Plan Disposition Plan: Discharge Discharge Attestation Discharge Attestation: The patient and all family members were given an opportunity to ask questions and understood the discharge instructions. Discharge instructions specifically effects, indications for sooner follow up or return to the emergency department, and the expected course of current diagnosis. Patient condition: Stable Discharge Plan Plan Patient Disposition: HOME (Self Care) Discharge Disposition comment: Stable Prescriptions/Referrals Prescriptions/Med Rec: No Action tamsulosin [Flomax] 0.4 mg capsule 0.4 mg PO QDAY Qty: 20 0RF acetaminophen-codeine 300-30 mg tablet 1 tab PO Q8H PRN (Reason: pain) Qty: 20 0RF acetaminophen-codeine 300-30 mg tablet 1 tab PO Q8H PRN (Reason: pain) Qty: 20 0RF hydrocodone-acetaminophen 5-325 mg tablet 1 tab PO BID MDD 10 PRN (Reason: pain) Qty: 14 0RF ibuprofen 600 mg tablet 600 mg PO Q6H PRN (Reason: pain) Qty: 30 0RF acetaminophen-codeine 300-30 mg tablet 1 tab PO Q8H PRN (Reason: pain) Qty: 20 0RF ibuprofen 800 mg tablet 800 mg PO TID PRN (Reason: pain) Qty: 30 0RF hydrocodone-acetaminophen 5-325 mg tablet 1 tab PO BID MDD 10 PRN (Reason: pain) Qty: 10 0RF hydrocodone-acetaminophen 5-325 mg tablet 1 tab PO BID MDD 10mg PRN (Reason: pain) Qty: 6 0RF ketorolac 10 mg tablet 10 mg PO Q8H Qty: 10 0RF Rx Instructions: maximum total duration of 5 days from all oral, intranasal, or parenteral formulations Problem List Clinical Impression: Urethral pain Patient/Caregiver Discharge Instructions Additional Instructions: Please follow-up with your urologist in the next 24 to 48 hours Medication was given to you to help you with your symptoms. For any evidence of worsening signs or symptoms return to the emergency room immediately Print Language: Burundian Stand Alone Forms: Latoya Award Info., Patient Portal Info Letter PA/INDUSTRIAL ROOFER Supervising Physician PA/INDUSTRIAL ROOFER Supervising Physician: Dr. ANDERSEN
[2024-11-12] MEDS: HYDROcodone/APAP 5/325 TABLET 1 TAB PO (11:02)
[2024-11-12] MEDS: KETOROLAC INJ 60 MG/2 ML VIAL 30 MG IM (11:02)
== END 2024-11-12 11:19 | disposition home or self-care (01) ==
LOC: SERX 11:09
PROVIDERS: Emergency Provider Emergency Medicine; PCP Family Medicine
DX: N36.8 Other specified disorders of urethra (principal); N40.0 Benign prostatic hyperplasia without lower urinary tract symptoms; F17.210 Nicotine dependence, cigarettes, uncomplicated; Z96.0 Presence of urogenital implants
CPT/HCPCS: 96372; 99283; J1885; A9270

== ENCOUNTER 2024-11-13 13:42 | Emergency (ER) | payer MEDICAID, SELFPAY ==
--- NOTE | 2024-11-13 14:01 | PC.NURSE ---
CALL PT BACK TO BE SEEN BY PROVIDER AND VITALS. PT DID NOT ANSWER AT THIS TIME.
[2024-11-13 14:17] VITALS: BP 137/84; PULSE 80; RESP 18; TEMP 37.1; O2SAT 98
--- NOTE | 2024-11-13 14:43 | EKG_ITS ---
[facility] Test Date: 2024-11-13 Pat Name: SACHIN COELHO Department: Room: - Gender: Male [employer] Worker: : 1960 Requested By: Latoya Gao Order Number: [id number] Reading MD: Latoya Gao Measurements Intervals [place] Rate: 73 P: 61 OK: 156 QRS: 7 QRSD: 81 T: 84 QT: 333 QTc: 368 Interpretive Statements SINUS RHYTHM WITH SINUS ARRHYTHMIA No previous ECG available for comparison /store/S0/[id number]/ecg/[id number].pdf
[2024-11-13] MEDS: KETOROLAC INJ 60 MG/2 ML VIAL 15 MG IM (14:49)
--- NOTE | 2024-11-13 16:39 | EDNOTE_ITS ---
ED Back Injury Pain RME/HPI General Chief Complaint: Chest Pain Stated Complaint: CHEST PAIN, FEVER Time Seen by Provider: 11/13/24 13:50 Arrival date/time: 11/13/24 13:42 Limitations: no limitations RME / HPI RME / HPI Narrative: 64-year-old male who is here today with chronic pelvic pain. He has chronic bladder stones and is here today requesting Toradol. He denies any fevers or chills. He states he is urinating and has no obstruction. Patient states he has an appointment with a urologist in [place] in 2 days for this. He states he has seen multiple urologist in the past and it is unclear if he has a therapy plan in place. He has no other acute complaints or concerns at this time. Related Data Previous Rx's ?Medication ?Instructions ?Recorded hydrocodone 5 mg-acetaminophen 325 1 tab PO BID PRN pa in #10 tabs 09/20/24 mg tablet ibuprofen 800 mg tablet 800 mg PO TID PRN pain #30 t abs 09/20/24 tamsulosin 0.4 mg capsule (Flomax) 0.4 mg PO QDAY #20 caps 10/01/24 acetaminophen 300 mg-codeine 30 mg 1 tab PO Q8H PRN pa in #20 tabs 10/26/24 tablet acetaminophen 300 mg-codeine 30 mg 1 tab PO Q8H PRN pa in #20 tabs 10/26/24 tablet hydrocodone 5 mg-acetaminophen 325 1 tab PO BID PRN pa in #6 tabs 10/29/24 mg tablet ketorolac 10 mg tablet 10 mg PO Q8H #10 tabs hydrocodone 5 mg-acetaminophen 325 1 tab PO BID PRN pa in #14 tabs 11/09/24 mg tablet acetaminophen 300 mg-codeine 30 mg 1 tab PO Q8H PRN pa in #20 tabs 11/11/24 tablet ibuprofen 600 mg tablet 600 mg PO Q6H PRN pain #30 t abs 11/11/24 Allergies Allergy/AdvReac Type Severity Reaction Status Date / Time No Known Allergies Allergy Verified 11/13/24 13:43 Review of Systems Review of Systems Systems Reviewed: All systems reviewed, normal except as documented ED Exam General Limitations: Present no limitations General appearance: Present alert and in no apparent distress Head Head exam: Present atraumatic Eye Eye exam: Present normal appearance, PERRL and EOMI ENT ENT exam: Present normal exam, normal oropharynx and mucous membranes moist Neck Neck exam: Present normal inspection, full ROM and trachea midline Chest Chest inspection: Present normal inspection and symmetric chest wall rise Respiratory Respiratory exam: Present normal lung sounds bilaterally Cardiovascular Cardiovascular exam: Present regular rate, normal rhythm and normal heart sounds Abdominal Exam Abdominal exam: Present soft and normal bowel sounds Extremities Exam Extremities exam: Present normal inspection and full ROM Back Exam Back exam: Present normal inspection and full ROM Neurological Exam Neurological exam: Present alert and oriented X3 Psychiatric Psychiatric exam: Present normal affect and normal mood Skin Skin exam: Present warm, dry, intact and normal color Course Course Course Narrative: Patient later stated he had it active chest pain. Workup was initiated from this however is reporting that the patient eloped shortly afterwards. Quality Measures none Orders Category Date Time Status EKG (ED ONLY) *Do not use* NOW Care 11/13/24 14:43 Completed EKG (ED Only) Stat Exams 11/13/24 14:43 Draft Ketorolac Inj [Toradol Inj] Med 11/13/24 14:13 Discontinued 15 mg IM X1 ONE Vital Signs Vital signs: Vital Signs Temperature 98.7 F 11/13/24 14:17 Pulse Rate 80 11/13/24 14:17 Respiratory Rate 18 11/13/24 14:17 Blood Pressure 137/84 H 11/13/24 14:17 Pulse Oximetry (%) 98 11/13/24 14:17 Oxygen Delivery Method Room Air 11/13/24 14:17 Back Pain / Injury MDM Narrative MDM Narrative:: 64-year-old male who is here today with chronic pelvic pain. He has chronic bladder stones and is here today requesting Toradol. He denies any fevers or chills. He states he is urinating and has no obstruction. Patient states he has an appointment with a urologist in [place] in 2 days for this. He states he has seen multiple urologist in the past and it is unclear if he has a therapy plan in place. He has no other acute complaints or concerns at this time. On exam, patient is ill-appearing but nontoxic-appearing. Vital signs are stable. A dose of Toradol was requested. While the patient was waiting for this, he developed chest pain, additional workup was requested however the patient then eloped from the emergency room Patient data External records reviewed:: [facility] previous records Clinical information provided by:: patient Social determinants that could affect healthcare access:: none Patient has the following chronic illnesses:: Chronic pelvic pain secondary to bladder stones How is presenting disease/condition affected by chronic disease/condition?: caused by Evaluation data The following diagnostics were reviewed and interpreted by me:: lab results Lab and/or radiology exams considered but not ordered:: n/a Interpretation Summary: n/a Medications / Prescriptions Medications or Prescriptions considered but not ordered:: See above Medication administrations:: Medication Administration History Discontinued Medications Ketorolac Tromethamine (Ketorolac Inj 60 Mg/2 Ml Vial) 15 mg IM X1 ONE Stop: 11/13/24 14:14 Last Admin: 11/13/24 14:49 Dose: 15 mg Documented By: See above Consultations Consultation(s) initiated? (list below): No Diagnosis Differential diagnosis back pain/injury: renal colic and pyelonephritis Most likely diagnosis given after review of the tests above:: Chronic pelvic pain Admission Indicated Admission indicated?: not indicated Admission Request Was there a request for admission?: No Disposition Plan Disposition Plan: other (specify) (eloped ) Discharge Plan Plan Patient Disposition: Elopement Patient condition on transfer: Stable Prescriptions/Referrals Prescriptions/Med Rec: No Action tamsulosin [Flomax] 0.4 mg capsule 0.4 mg PO QDAY Qty: 20 0RF acetaminophen-codeine 300-30 mg tablet 1 tab PO Q8H PRN (Reason: pain) Qty: 20 0RF acetaminophen-codeine 300-30 mg tablet 1 tab PO Q8H PRN (Reason: pain) Qty: 20 0RF hydrocodone-acetaminophen 5-325 mg tablet 1 tab PO BID MDD 10 PRN (Reason: pain) Qty: 14 0RF ibuprofen 600 mg tablet 600 mg PO Q6H PRN (Reason: pain) Qty: 30 0RF acetaminophen-codeine 300-30 mg tablet 1 tab PO Q8H PRN (Reason: pain) Qty: 20 0RF ibuprofen 800 mg tablet 800 mg PO TID PRN (Reason: pain) Qty: 30 0RF hydrocodone-acetaminophen 5-325 mg tablet 1 tab PO BID MDD 10 PRN (Reason: pain) Qty: 10 0RF hydrocodone-acetaminophen 5-325 mg tablet 1 tab PO BID MDD 10mg PRN (Reason: pain) Qty: 6 0RF ketorolac 10 mg tablet 10 mg PO Q8H Qty: 10 0RF Rx Instructions: maximum total duration of 5 days from all oral, intranasal, or parenteral formulations Referrals: Parminder Lyles MD [Primary Care Provider] - In 1 week Problem List Clinical Impression: Chest pain, Chronic male pelvic pain Patient/Caregiver Discharge Instructions Print Language: Ethiopian
== END 2024-11-13 15:42 | disposition left against medical advice (07) ==
LOC: SERX 15:41
PROVIDERS: Emergency Provider Emergency Medicine; PCP Family Medicine
DX: R10.2 Pelvic and perineal pain (principal); N21.0 Calculus in bladder
CPT/HCPCS: 80053; 83690; 83735; 83880; 84484; 85025; 87400; 87811; 93005; 96372; 99283; J1885

== ENCOUNTER 2024-11-14 12:45 | Emergency (ER) | payer MEDICAID, SELFPAY ==
[2024-11-14 13:50] VITALS: BP 137/68; PULSE 86; RESP 20; TEMP 36.5; O2SAT 98; BMI 24.2
--- NOTE | 2024-11-14 14:03 | EDNOTE_ITS ---
ED Male Genitalurinary RME/HPI General Chief complaint: Urogenital-Male Stated complaint: turner catheter pain Time Seen by Provider: 11/14/24 13:24 Arrival date/time: 11/14/24 12:45 Limitations: no limitations RME / HPI RME / HPI Narrative: 64 year old male with history of BPH, bladder stones presents to the ED for evaluation of penile pain he reports is due to the turner catheter. States he consulted with PCP today who prescribed Levofloxacin, Tylenol #3, and Motrin. However, has taken the medications and continues to have pain. In the ED, patient is requesting a shot . Per EMR review, the patient was evaluated here a few weeks ago and CT abdomen showed several bladder stones. Evidently had been transferred to [place] in the past for the bladder stones and has an appointment scheduled 01/2025. No other associated symptoms or complaints reported. Related Data Previous Rx's ?Medication ?Instructions ?Recorded hydrocodone 5 mg-acetaminophen 325 1 tab PO BID PRN pa in #10 tabs 09/20/24 mg tablet ibuprofen 800 mg tablet 800 mg PO TID PRN pain #30 t abs 09/20/24 tamsulosin 0.4 mg capsule (Flomax) 0.4 mg PO QDAY #20 caps 10/01/24 acetaminophen 300 mg-codeine 30 mg 1 tab PO Q8H PRN pa in #20 tabs 10/26/24 tablet acetaminophen 300 mg-codeine 30 mg 1 tab PO Q8H PRN pa in #20 tabs 10/26/24 tablet hydrocodone 5 mg-acetaminophen 325 1 tab PO BID PRN pa in #6 tabs 10/29/24 mg tablet ketorolac 10 mg tablet 10 mg PO Q8H #10 tabs hydrocodone 5 mg-acetaminophen 325 1 tab PO BID PRN pa in #14 tabs 11/09/24 mg tablet acetaminophen 300 mg-codeine 30 mg 1 tab PO Q8H PRN pa in #20 tabs 11/11/24 tablet ibuprofen 600 mg tablet 600 mg PO Q6H PRN pain #30 t abs 11/11/24 Allergies Allergy/AdvReac Type Severity Reaction Status Date / Time No Known Allergies Allergy Verified 11/14/24 12:48 Review of Systems Review of Systems Systems Reviewed: All systems reviewed, normal except as documented Past Medical History Past Medical History GENITOURINARY: Positive Genitourinary Disorders, Kidney Stones and Benign Prostatic Hyperplasia MUSCULOSKELETAL: Positive Musculoskeletal Disorders and Degenerative Joint Disease Social History SMOKING STATUS: Current every day smoker SUBSTANCE USE: does not use ED Exam General Limitations: Present no limitations General appearance: Present alert and in no apparent distress Head Head exam: Present atraumatic, normocephalic and normal inspection Eye Eye exam: Present normal appearance, PERRL and EOMI ENT ENT exam: Present normal exam, normal oropharynx and mucous membranes moist Neck Neck exam: Present normal inspection, full ROM and trachea midline Chest Chest inspection: Present normal inspection and symmetric chest wall rise Respiratory Respiratory exam: Present normal lung sounds bilaterally Cardiovascular Cardiovascular exam: Present regular rate, normal rhythm and normal heart sounds Abdominal Exam Abdominal exam: Present soft and normal bowel sounds exam: Present other (Turner catheter in place) Extremities Exam Extremities exam: Present normal inspection and full ROM Back Exam Back exam: Present normal inspection and full ROM Neurological Exam Neurological exam: Present alert, oriented X3 and CN II-XII intact Psychiatric Psychiatric exam: Present normal affect and normal mood Skin Skin exam: Present warm, dry, intact and normal color Course Quality Measures none Orders Category Date Time Status Morphine Inj Med 11/14/24 13:44 Discontinued 2 mg IM X1 ONE Ondansetron Inj [Zofran Inj] Med 11/14/24 13:44 Discontinued 4 mg IM X1 ONE Vital Signs Vital signs: Vital Signs Temperature 97.7 F 11/14/24 13:50 Pulse Rate 86 11/14/24 13:50 Respiratory Rate 20 11/14/24 13:50 Blood Pressure 137/68 H 11/14/24 13:50 Pulse Oximetry (%) 98 11/14/24 13:50 Oxygen Delivery Method Room Air 11/14/24 13:50 Pulse ox is 98% on room air which is adequate. Urogenital - Male MDM Narrative MDM Narrative:: Radha Dixon am scribing for and in the presence of Dr. Oswald. Patient data External records reviewed:: [facility] previous records (I reviewed ED visit on 11/13/2024 for chest pain. ) Clinical information provided by:: patient Social determinants that could affect healthcare access:: none Patient has the following chronic illnesses:: BPH, bladder stones How is presenting disease/condition affected by chronic disease/condition?: exacerbated by Evaluation data The following diagnostics were reviewed and interpreted by me:: other (specify) (No diagnostics ordered ) Lab and/or radiology exams considered but not ordered:: None Interpretation Summary: N/A Medications / Prescriptions Medications or Prescriptions considered but not ordered:: None Medication administrations:: Medication Administration History Discontinued Medications Morphine Sulfate (Morphine Sulf Inj 10 Mg/Ml Vial) 2 mg IM X1 ONE Stop: 11/14/24 13:45 Last Admin: 11/14/24 16:50 Dose: 2 mg Documented By: Ondansetron HCl (Ondansetron Inj 2 Mg/Ml Inj 2 Ml) 4 mg IM X1 ONE; Protocol Stop: 11/14/24 13:45 Last Admin: 11/14/24 16:51 Dose: 4 mg Documented By: See above Consultations Consultation(s) initiated? (list below): No Diagnosis Urogenital Male Differential Diagnosis: urinary tract infection, acute retention of urine and other (bladder stones ) Most likely diagnosis given after review of the tests above:: Bladder stones Chronic pain Admission Indicated Admission indicated?: not indicated Admission Request Was there a request for admission?: No Disposition Plan Disposition Plan: Discharge Discharge Attestation Discharge Attestation: The patient and all family members were given an opportunity to ask questions and understood the discharge instructions. Discharge instructions specifically effects, indications for sooner follow up or return to the emergency department, and the expected course of current diagnosis. Patient condition: Stable Discharge Plan Plan Patient Disposition: HOME (Self Care) Prescriptions/Referrals Prescriptions/Med Rec: No Action tamsulosin [Flomax] 0.4 mg capsule 0.4 mg PO QDAY Qty: 20 0RF acetaminophen-codeine 300-30 mg tablet 1 tab PO Q8H PRN (Reason: pain) Qty: 20 0RF acetaminophen-codeine 300-30 mg tablet 1 tab PO Q8H PRN (Reason: pain) Qty: 20 0RF hydrocodone-acetaminophen 5-325 mg tablet 1 tab PO BID MDD 10 PRN (Reason: pain) Qty: 14 0RF ibuprofen 600 mg tablet 600 mg PO Q6H PRN (Reason: pain) Qty: 30 0RF acetaminophen-codeine 300-30 mg tablet 1 tab PO Q8H PRN (Reason: pain) Qty: 20 0RF ibuprofen 800 mg tablet 800 mg PO TID PRN (Reason: pain) Qty: 30 0RF hydrocodone-acetaminophen 5-325 mg tablet 1 tab PO BID MDD 10 PRN (Reason: pain) Qty: 10 0RF hydrocodone-acetaminophen 5-325 mg tablet 1 tab PO BID MDD 10mg PRN (Reason: pain) Qty: 6 0RF ketorolac 10 mg tablet 10 mg PO Q8H Qty: 10 0RF Rx Instructions: maximum total duration of 5 days from all oral, intranasal, or parenteral formulations Referrals: Parminder Lyles MD [Primary Care Provider] - In 1 week Problem List Clinical Impression: Bladder stones, Chronic pain syndrome Patient/Caregiver Discharge Instructions Education Materials: Understanding Bladder Stones, ED Chronic Pain Additional Instructions: Follow up with your urologist in 3 to 5 days for recheck. You can return to the emergency department sooner if symptoms worsen or if you notice any new, donny rning issues. Print Language: Portuguese Stand Alone Forms: [employer] Award Info., Patient Portal Info Letter
[2024-11-14] MEDS: MORPHINE SULF INJ 10 MG/ML VIAL 2 MG IM (16:50)
[2024-11-14] MEDS: ONDANSETRON INJ 2 MG/ML INJ 2 ML 4 MG IM (16:51)
== END 2024-11-14 17:01 | disposition home or self-care (01) ==
PROVIDERS: Emergency Provider Family Medicine; PCP Family Medicine
DX: N21.0 Calculus in bladder (principal); G89.4 Chronic pain syndrome
CPT/HCPCS: 96372; 99283; J2270; J2405

== ENCOUNTER 2024-11-23 21:10 | Emergency (ER) | payer MEDICAID, SELFPAY ==
[2024-11-23 21:13] VITALS: BMI 22.9
--- NOTE | 2024-11-23 21:32 | PD.EDMALE ---
ED Male Genitalurinary RME/HPI General Chief complaint: Abdominal Pain Stated complaint: MALFUNCTIONING CATH Time Seen by Provider: 11/23/24 21:15 Arrival date/time: 11/23/24 21:10 RME / HPI RME / HPI Narrative: 64-year-old male patient with significant history of acute urinary retention, on chronic Melgar catheter, came in for evaluation regarding urine leaking on the side of the Melgar catheter. Patient also complaining of penile pain and discomfort. Patient was seen in [facility], and was advised to follow-up with local urologist, he had a scheduled appointment in [place] next month. Patient denies any vomiting denies any fever denies any other complaints. Related Data Previous Rx's ?Medication ?Instructions ?Recorded hydrocodone 5 mg-acetaminophen 325 1 tab PO BID PRN pain #10 tabs 09/20/ mg tablet ibuprofen 800 mg tablet 800 mg PO TID PRN pain #30 tabs 09/20/24 tamsulosin 0.4 mg capsule (Flomax) 0.4 mg PO QDAY #20 caps 10/01/24 acetaminophen 300 mg-codeine 30 mg 1 tab PO Q8H PRN pain #20 tabs 10/26/24 tablet acetaminophen 300 mg-codeine 30 mg 1 tab PO Q8H PRN pain #20 tabs 10/26/24 tablet hydrocodone 5 mg-acetaminophen 325 1 tab PO BID PRN pain #6 tabs 10/29/25 mg tablet ketorolac 10 mg tablet 10 mg PO Q8H #10 tabs 11/02/24 hydrocodone 5 mg-acetaminophen 325 1 tab PO BID PRN pain #14 tabs 25 mg tablet acetaminophen 300 mg-codeine 30 mg 1 tab PO Q8H PRN pain #20 tabs 11/11/24 tablet ibuprofen 600 mg tablet 600 mg PO Q6H PRN pain #30 tabs 11/11/24 Allergies Allergy/AdvReac Type Severity Reaction Status Date / Time No Known Allergies Allergy Verified 11/23/24 21:16 Review of Systems Review of Systems Narrative Review of Systems: Review of system reviewed and within normal limits except mentioned in HPI ED Exam Narrative Physical exam: VITAL SIGNS: Reviewed. GENERAL APPEARANCE: Alert and interactive, follows commands, no acute distress, HEAD AND FACE: Non-traumatic. ENT: PERRL, pink conjunctivitis, eyelid no trauma, Mucous membrane moist. NECK: Supple, nontender, no nuchal rigidity. CHEST: No tenderness, no crepitus, no paradoxical movement, no retractions. LUNGS: Clear, well ventilated, symmetric, no rales, no wheezing, no ronchi, no stridor, good breath sounds bilaterally. HEART: Regular rate, regular rhythm, no murmur, no gallops. ABDOMEN: Soft, positive bowel sounds, nondistended, no guarding, nontender, no rebound, no masses, RECTAL: Deferred. GENITAL: Melgar catheter, intact dry Melgar catheter tubing, urine noted on the side of the Melgar catheter. Suprapubic distention tenderness. NEUROLOGICAL: Gross motor function intact sensory function intact, Appropriate for age. MUSCULOSKELETAL: low back nontender, full range of motion. EXTREMITIES: Nontender, full range of motion. SKIN: Color pink, dry, no rash, no lacerations, no abrasions, no contusions. LYMPHATICS: Deferred. Course Quality Measures none Orders Category Date Time Status Melgar [Urinary Catheter, Remove] ONCE Care 11/23/24 21:29 Active Melgar [Urinary Catheter] QS Care 11/23/24 21:29 Active Ketorolac Inj [Toradol Inj] Med 11/23/24 21:29 Discontinued 30 mg IM X1 ONE Lidocaine Jelly 2% Urojet [Xylocaine Jelly 2% Urojet] Med 11/23/24 21:29 Discontinued See Dose Instructions TOP X1 ONE Vital Signs Vital signs: Vital Signs Temperature 98.8 F 11/23/24 21:34 Pulse Rate 94 11/23/24 21:34 Respiratory Rate 18 11/23/24 21:34 Blood Pressure 147/81 H 11/23/24 21:34 Pulse Oximetry (%) 95 11/23/24 21:34 Oxygen Delivery Method Room Air 11/23/24 21:34 Urogenital - Male MDM Narrative MDM Narrative:: 64-year-old male patient with significant history of acute urinary retention, on chronic Melgar catheter, came in for evaluation regarding urine leaking on the side of the Melgar catheter. Patient also complaining of penile pain and discomfort. Patient was seen in [facility], and was advised to follow-up with local urologist, he had a scheduled appointment in [place] next month. Patient denies any vomiting denies any fever denies any other complaints. Melgar catheter was removed, and new Melgar catheter was inserted without any difficulty. Patient tolerated the procedure well. Patient was also given Toradol IM. Stable for discharge home. Patient data External records reviewed:: None Clinical information provided by:: patient Social determinants that could affect healthcare access:: none Patient has the following chronic illnesses:: BPH How is presenting disease/condition affected by chronic disease/condition?: exacerbated by Evaluation data The following diagnostics were reviewed and interpreted by me:: other (specify) (None) Lab and/or radiology exams considered but not ordered:: None Interpretation Summary: None Medications / Prescriptions Medications or Prescriptions considered but not ordered:: none Medication administrations:: Medication Administration History Discontinued Medications Ketorolac Tromethamine (Ketorolac Inj 60 Mg/2 Ml Vial) 30 mg IM X1 ONE Stop: 11/23/24 21:30 Last Admin: 11/23/24 21:48 Dose: 30 mg Documented By: GABY Lidocaine HCl (Lidocaine Jelly 2% (Urojet) 10 Ml Tube) 0 ml TOP X1 ONE Stop: 11/23/24 21:30 Last Admin: 11/23/24 21:48 Dose: 10 ml Documented By: GABY toradol and urojet Consultations Consultation(s) initiated? (list below): No Diagnosis Urogenital Male Differential Diagnosis: acute retention of urine Most likely diagnosis given after review of the tests above:: Acute urinary retention due to Melgar catheter malfunction Admission Indicated Admission indicated?: not indicated Explain why admission is indicated or not indicated:: Stable Admission Request Was there a request for admission?: No Disposition Plan Disposition Plan: Discharge Discharge Attestation Discharge Attestation: The patient was given an opportunity to ask questions and understood the discharge instructions. Discharge instructions specifically effects, indications for sooner follow up or return to the emergency department, and the expected course of current diagnosis. Patient condition: Stable Discharge Plan Plan Patient Disposition: HOME (Self Care) Discharge Disposition comment: Stable Prescriptions/Referrals Prescriptions/Med Rec: No Action tamsulosin [Flomax] 0.4 mg capsule 0.4 mg PO QDAY Qty: 20 0RF acetaminophen-codeine 300-30 mg tablet 1 tab PO Q8H PRN (Reason: pain) Qty: 20 0RF acetaminophen-codeine 300-30 mg tablet 1 tab PO Q8H PRN (Reason: pain) Qty: 20 0RF hydrocodone-acetaminophen 5-325 mg tablet 1 tab PO BID MDD 10 PRN (Reason: pain) Qty: 14 0RF ibuprofen 600 mg tablet 600 mg PO Q6H PRN (Reason: pain) Qty: 30 0RF acetaminophen-codeine 300-30 mg tablet 1 tab PO Q8H PRN (Reason: pain) Qty: 20 0RF ibuprofen 800 mg tablet 800 mg PO TID PRN (Reason: pain) Qty: 30 0RF hydrocodone-acetaminophen 5-325 mg tablet 1 tab PO BID MDD 10 PRN (Reason: pain) Qty: 10 0RF hydrocodone-acetaminophen 5-325 mg tablet 1 tab PO BID MDD 10mg PRN (Reason: pain) Qty: 6 0RF ketorolac 10 mg tablet 10 mg PO Q8H Qty: 10 0RF Rx Instructions: maximum total duration of 5 days from all oral, intranasal, or parenteral formulations Referrals: No Primary/Family,Physician [Primary Care Provider] - In 1 week Problem List Clinical Impression: Acute urinary retention, Malfunction of Melgar catheter Patient/Caregiver Discharge Instructions Discharge Activity: activity as tolerated Education Materials: ED Urinary Retention, Male Additional Instructions: Thank you for the opportunity for serving you today. You are stable for discharged . You are advised to: Follow-up with your PCP in 1 to 2 days Return to ED for worsening of symptoms Increase oral fluids Follow-up with your urologist next week Print Language: Syrian Stand Alone Forms: [employer] Award Info., Patient Portal Info Letter
[2024-11-23 21:34] VITALS: BP 147/81; PULSE 94; RESP 18; TEMP 37.1; O2SAT 95
[2024-11-23] MEDS: LIDOCAINE JELLY 2% (Urojet) 10 ML TUBE TOP (21:48)
[2024-11-23] MEDS: KETOROLAC INJ 60 MG/2 ML VIAL 30 MG IM (21:48)
== END 2024-11-23 23:47 | disposition home or self-care (01) ==
PROVIDERS: Emergency Provider Emergency Medicine
DX: T83.091A Other mechanical complication of indwelling urethral catheter, initial encounter (principal); N40.1 Benign prostatic hyperplasia with lower urinary tract symptoms; R33.8 Other retention of urine; Y84.6 Urinary catheterization as the cause of abnormal reaction of the patient, or of later complication, without mention of misadventure at the time of the procedure
CPT/HCPCS: 51702; 96372; 99284; A4314; J1885

== ENCOUNTER 2024-11-25 21:30 | Emergency (ER) | payer MEDICAID, SELFPAY ==
[2024-11-25 21:31] VITALS: BMI 22.9
[2024-11-25 21:42] VITALS: BP 159/79; PULSE 97; RESP 18; TEMP 36.9; O2SAT 98
--- NOTE | 2024-11-25 23:17 | PC.NURSE ---
Addendum entered by Luisana Grande RN 11/25/24 23:21: Notified Provider Brayden Original Note: Pt left without tx, ambulated out of the ER with steady gait-alert oriented times 4, notified ALPHONSO Viveros.
--- NOTE | 2024-11-25 23:20 | PD.EDRME ---
Rapid Medical Screening Exam RME Arrival date/time: 11/25/24 21:30 This is a case of 65-year-old male who had history of urinary retention came in in the emergency room due to Melgar catheter malfunction patient wanted to change the Melgar catheter and wanted to be treated for urinary tract infection patient denies any fever chills abdominal pain or any symptoms Chief Complaint: General Adult/Misc Complain Time Seen by Provider: 11/25/24 21:52 Vital signs: Vital Signs Temperature 98.4 F 11/25/24 21:42 Pulse Rate 97 11/25/24 21:42 Respiratory Rate 18 11/25/24 21:42 Blood Pressure 159/79 H 11/25/24 21:42 Pulse Oximetry (%) 98 11/25/24 21:42 Oxygen Delivery Method Room Air 11/25/24 21:42
--- NOTE | 2024-11-25 23:22 | PC.NURSE ---
PT REQUESTING PAIN MEDS, INFORMED SAINI WOULD BE CHANGED AND UROJET WAS ORDERED. PT WANTED PAIN MEDS AND WALKED OUT OF ER.
== END 2024-11-25 23:21 | disposition left against medical advice (07) ==
PROVIDERS: Emergency Provider Emergency Medicine
DX: T83.011A Breakdown (mechanical) of indwelling urethral catheter, initial encounter (principal); Y84.6 Urinary catheterization as the cause of abnormal reaction of the patient, or of later complication, without mention of misadventure at the time of the procedure; Z53.29 Procedure and treatment not carried out because of patient's decision for other reasons
CPT/HCPCS: 81001; 99282; A4314

== ENCOUNTER 2024-11-28 10:48 | Emergency (ER) | payer MEDICAID, SELFPAY ==
[2024-11-28 10:48] VITALS: BMI 21.5
[2024-11-28 11:40] VITALS: BP 116/91; PULSE 78; RESP 18; TEMP 36.7; O2SAT 97
--- NOTE | 2024-11-28 11:52 | EDNOTE_ITS ---
<Statement entered by Marylou Andersen MD - 12/09/24 11:13> As co-signing physician, I was present and available for consult prn. I concur with the plan and care as documented by the midlevel provider. ED Male Genitalurinary RME/HPI General Chief complaint: General Adult/Misc Complain Stated complaint: GROIN PAIN 01/05 Time Seen by Provider: 11/28/24 11:16 Source: patient Arrival date/time: 11/28/24 10:48 64-year-old male with a history of BPH and of a chronic urinary catheter presents to the emergency room with a chief complaint of groin pain x 2 days Mode of arrival: ambulatory Limitations: no limitations Related Data Previous Rx's ?Medication ?Instructions ?Recorded hydrocodone 5 mg-acetaminophen 325 1 tab PO BID PRN pa in #10 tabs 09/20/ mg tablet ibuprofen 800 mg tablet 800 mg PO TID PRN pain #30 t abs 09/20/24 tamsulosin 0.4 mg capsule (Flomax) 0.4 mg PO QDAY #20 caps 10/01/24 acetaminophen 300 mg-codeine 30 mg 1 tab PO Q8H PRN pa in #20 tabs 10/26/24 tablet acetaminophen 300 mg-codeine 30 mg 1 tab PO Q8H PRN pa in #20 tabs 10/26/24 tablet hydrocodone 5 mg-acetaminophen 325 1 tab PO BID PRN pa in #6 tabs 10/29/24 mg tablet ketorolac 10 mg tablet 10 mg PO Q8H #10 tabs hydrocodone 5 mg-acetaminophen 325 1 tab PO BID PRN pa in #14 tabs 11/09/24 mg tablet acetaminophen 300 mg-codeine 30 mg 1 tab PO Q8H PRN pa in #20 tabs 11/11/24 tablet ibuprofen 600 mg tablet 600 mg PO Q6H PRN pain #30 t abs 11/11/24 Allergies Allergy/AdvReac Type Severity Reaction Status Date / Time No Known Allergies Allergy Verified 11/28/24 10:50 Review of Systems Review of Systems Systems Reviewed: All systems reviewed, normal except as documented Constitutional Constitutional: Reports system reviewed and no additional complaints, except as documented, Denies fatigue, Denies fever(s), Denies headache(s) and Denies weakness Eyes Eyes: Reports system reviewed and no additional complaints, except as documented, Denies blurry vision and Denies change in vision ENT Ears, Nose, Mouth, and Throat: Reports system reviewed and no additional complaints, except as documented, Denies otalgia, Denies headache(s), Denies nasal congestion, Denies throat swelling and Denies vertigo Cardiovascular Cardiovascular: Reports system reviewed and no additional complaints, except as documented, Denies chest pain, Denies dyspnea and Denies dyspnea on exertion Respiratory Respiratory: Reports system reviewed and no additional complaints, except as documented, Denies chest congestion, Denies cough, Denies dyspnea, Denies dyspnea on exertion and Denies wheezing Gastrointestinal Gastrointestinal: Reports system reviewed and no additional complaints, except as documented, Denies abdominal pain, Denies cramping, Denies nausea and Denies vomiting Genitourinary Genitourinary: Reports system reviewed and no additional complaints, except as documented, Denies dysuria and Denies hematuria Musculoskeletal Musculoskeletal: Reports system reviewed and no additional complaints, except as documented and Denies back pain Integumentary/Breasts Skin/Breast: Reports system reviewed and no additional complaints, except as documented and Denies wounds Neurologic Neurologic: Reports system reviewed and no additional complaints, except as documented, Denies confusion, Denies headache(s), Denies lack of coordination, Denies vertigo and Denies weakness Psychiatric Psychiatric: Reports system reviewed and no additional complaints, except as d ocumented, Denies anxiety, Denies confusion, Denies depression, Denies paranoia, Denies suicidal ideation and Denies tactile hallucinations Endocrine Endocrine: Reports system reviewed and no additional complaints, except as documented and Denies fatigue Hematologic/Lymphatic Hematologic/Lymphatic: Reports system reviewed and no additional complaints, except as documented and Denies lymphadenopathy Allergic/Immunologic Allergic/Immunologic: Reports system reviewed and no additional complaints, except as documented, Denies throat swelling, Denies urticaria and Denies wheezing ED Exam General Limitations: Present no limitations General appearance: Present alert and in no apparent distress Head Head exam: Present atraumatic Eye Eye exam: Present normal appearance, PERRL and EOMI ENT ENT exam: Present normal exam, normal oropharynx and mucous membranes moist Neck Neck exam: Present normal inspection, full ROM and trachea midline Chest Chest inspection: Present normal inspection and symmetric chest wall rise Respiratory Respiratory exam: Present normal lung sounds bilaterally Cardiovascular Cardiovascular exam: Present regular rate, normal rhythm and normal heart sounds Abdominal Exam Abdominal exam: Present soft and normal bowel sounds Extremities Exam Extremities exam: Present normal inspection and full ROM Back Exam Back exam: Present normal inspection and full ROM Neurological Exam Neurological exam: Present alert, oriented X3 and CN II-XII intact Psychiatric Psychiatric exam: Present normal affect and normal mood Skin Skin exam: Present warm, dry, intact and normal color Course Quality Measures none Orders Category Date Time Status HYDROcodone*/APAP 5/325 [[place] 5/325] Med 11/28/24 11:29 Discontinued 1 tab PO X1 ONE Ketorolac Inj [Toradol Inj] Med 11/28/24 11:29 Discontinued 30 mg IM X1 ONE Vital Signs Vital signs: Vital Signs Temperature 98.0 F 11/28/24 11:40 Pulse Rate 78 11/28/24 11:40 Respiratory Rate 18 11/28/24 11:40 Blood Pressure 116/91 H 11/28/24 11:40 Pulse Oximetry (%) 97 11/28/24 11:40 Oxygen Delivery Method Room Air 11/28/24 11:40 Urogenital - Male MDM Narrative MDM Narrative:: 64-year-old male with a history of BPH and of a chronic urinary catheter presents to the emergency room with a chief complaint of groin pain x 2 days Patient is hemodynamically stable and in no apparent distress Physical examination shows a soft nontender abdomen. The patient states that he is here only for breakthrough pain due to his chronic groin and pelvic pain. Patient states he has an appointment with his urologist in [place] tomorrow. A shot of Toradol medication was given to the patient and the patient was discharged Patient was discharged and educated to follow-up with primary care provider in the next 24 to 48 hours and return to the emergency room for any evidence of worsening signs or symptoms Patient data External records reviewed:: [facility] previous records Clinical information provided by:: patient Social determinants that could affect healthcare access:: none Patient has the following chronic illnesses:: BPH How is presenting disease/condition affected by chronic disease/condition?: exacerbated by Evaluation data The following diagnostics were reviewed and interpreted by me:: lab results and radiology exam(s) Lab and/or radiology exams considered but not ordered:: Labs and radiology exams considered and ordered Interpretation Summary: N/A Medications / Prescriptions Medications or Prescriptions considered but not ordered:: Medication given Medication administrations:: Medication Administration History Discontinued Medications Hydrocodone Bitart/Acetaminophen (Hydrocodone/Apap 5/325 Tablet) 1 tab PO X1 ONE Stop: 11/28/24 11:30 Last Admin: 11/28/24 11:55 Dose: 1 tab Documented By: OA Ketorolac Tromethamine (Ketorolac Inj 60 Mg/2 Ml Vial) 30 mg IM X1 ONE Stop: 11/28/24 11:30 Last Admin: 11/28/24 11:54 Dose: 30 mg Documented By: OA Medication given Consultations Consultation(s) initiated? (list below): No Diagnosis Urogenital Male Differential Diagnosis: urinary tract infection, acute retention of urine and other (Chronic male pelvic pain) Most likely diagnosis given after review of the tests above:: Chronic male pelvic pain Admission Indicated Admission indicated?: not indicated Admission Request Was there a request for admission?: No Disposition Plan Disposition Plan: Discharge Discharge Attestation Discharge Attestation: The patient and all family members were given an opportunity to ask questions and understood the discharge instructions. Discharge instructions specifically effects, indications for sooner follow up or return to the emergency department, and the expected course of current diagnosis. Patient condition: Stable Discharge Plan Plan Patient Disposition: HOME (Self Care) Discharge Disposition comment: Stable Prescriptions/Referrals Prescriptions/Med Rec: No Action tamsulosin [Flomax] 0.4 mg capsule 0.4 mg PO QDAY Qty: 20 0RF acetaminophen-codeine 300-30 mg tablet 1 tab PO Q8H PRN (Reason: pain) Qty: 20 0RF acetaminophen-codeine 300-30 mg tablet 1 tab PO Q8H PRN (Reason: pain) Qty: 20 0RF hydrocodone-acetaminophen 5-325 mg tablet 1 tab PO BID MDD 10 PRN (Reason: pain) Qty: 14 0RF ibuprofen 600 mg tablet 600 mg PO Q6H PRN (Reason: pain) Qty: 30 0RF acetaminophen-codeine 300-30 mg tablet 1 tab PO Q8H PRN (Reason: pain) Qty: 20 0RF ibuprofen 800 mg tablet 800 mg PO TID PRN (Reason: pain) Qty: 30 0RF hydrocodone-acetaminophen 5-325 mg tablet 1 tab PO BID MDD 10 PRN (Reason: pain) Qty: 10 0RF hydrocodone-acetaminophen 5-325 mg tablet 1 tab PO BID MDD 10mg PRN (Reason: pain) Qty: 6 0RF ketorolac 10 mg tablet 10 mg PO Q8H Qty: 10 0RF Rx Instructions: maximum total duration of 5 days from all oral, intranasal, or parenteral formulations Referrals: Parminder Lyles MD [Primary Care Provider] - In 1 week Problem List Clinical Impression: Chronic male pelvic pain Patient/Caregiver Discharge Instructions Education Materials: ED Chronic Pain Additional Instructions: Please follow-up with your primary care provider in the next 24 to 48 hours Please keep your appointment with your urologist tomorrow in [place]. For any evidence of worsening signs or symptoms return to the emergency room immediately Print Language: Lao Stand Alone Forms: Latoya Award Info., Patient Portal Info Letter PA/LIVE SOURCE OPERATOR Supervising Physician PA/LIVE SOURCE OPERATOR Supervising Physician: Dr. ANDERSEN
[2024-11-28] MEDS: KETOROLAC INJ 60 MG/2 ML VIAL 30 MG IM (11:54)
[2024-11-28] MEDS: HYDROcodone/APAP 5/325 TABLET 1 TAB PO (11:55)
== END 2024-11-28 12:27 | disposition home or self-care (01) ==
PROVIDERS: Emergency Provider Emergency Medicine; PCP Family Medicine
DX: R10.2 Pelvic and perineal pain (principal); G89.29 Other chronic pain
CPT/HCPCS: 96372; 99283; J1885; A9270

== ENCOUNTER 2024-11-29 06:31 | Emergency (ER) | payer MEDICAID, SELFPAY ==
[2024-11-29 06:32] VITALS: BMI 21.5
[2024-11-29 06:37] VITALS: BP 156/74; PULSE 88; RESP 18; TEMP 36.8; O2SAT 97
--- NOTE | 2024-11-29 07:03 | EDNOTE_ITS ---
<Statement entered by Marylou Andersen MD - 12/09/24 11:19> As co-signing physician, I was present and available for consult prn. I concur with the plan and care as documented by the midlevel provider. ED Male Genitalurinary RME/HPI General Chief complaint: Urogenital-Male Stated complaint: PAIN IN GROIN AREA Time Seen by Provider: 11/29/24 06:55 Arrival date/time: 11/29/24 06:31 64-year-old male with medical history significant for bladder calculi presents to the emergency department for complaints of pelvic pain and penile pain patient reports a follow-up appointment with specialist at 1:30 PM in [place] patient would like pain medication before heading up to [place]. Patient reports no fever nausea or vomiting patient reports that this is his typical pain Limitations: no limitations Related Data Previous Rx's ?Medication ?Instructions ?Recorded hydrocodone 5 mg-acetaminophen 325 1 tab PO BID PRN pa in #10 tabs 09/20/24 mg tablet ibuprofen 800 mg tablet 800 mg PO TID PRN pain #30 t abs 09/20/24 tamsulosin 0.4 mg capsule (Flomax) 0.4 mg PO QDAY #20 caps 10/01/24 acetaminophen 300 mg-codeine 30 mg 1 tab PO Q8H PRN pa in #20 tabs 10/26/24 tablet acetaminophen 300 mg-codeine 30 mg 1 tab PO Q8H PRN pa in #20 tabs 10/26/24 tablet hydrocodone 5 mg-acetaminophen 325 1 tab PO BID PRN pa in #6 tabs 10/29/24 mg tablet ketorolac 10 mg tablet 10 mg PO Q8H #10 tabs hydrocodone 5 mg-acetaminophen 325 1 tab PO BID PRN pa in #14 tabs 11/09/24 mg tablet acetaminophen 300 mg-codeine 30 mg 1 tab PO Q8H PRN pa in #20 tabs 11/11/24 tablet ibuprofen 600 mg tablet 600 mg PO Q6H PRN pain #30 t abs 11/11/24 Allergies Allergy/AdvReac Type Severity Reaction Status Date / Time No Known Allergies Allergy Verified 11/28/24 10:50 Review of Systems Review of Systems Systems Reviewed: All systems reviewed, normal except as documented Constitutional Constitutional: Reports system reviewed and no additional complaints, except as documented, Denies fever(s) and Denies headache(s) Eyes Eyes: Reports system reviewed and no additional complaints, except as documented and Denies blurry vision ENT Ears, Nose, Mouth, and Throat: Reports system reviewed and no additional complaints, except as documented, Denies headache(s), Denies nasal congestion and Denies nasal discharge Cardiovascular Cardiovascular: Reports system reviewed and no additional complaints, except as documented, Denies chest pain and Denies dyspnea Respiratory Respiratory: Reports system reviewed and no additional complaints, except as documented, Denies chest congestion, Denies cough and Denies dyspnea Gastrointestinal Gastrointestinal: Reports system reviewed and no additional complaints, except as documented and Denies abdominal pain Genitourinary Genitourinary: Reports system reviewed and no additional complaints, except as documented, Denies difficulty urinating, Denies hematuria and Reports other (Melgar cath in place) Integumentary/Breasts Skin/Breast: Reports system reviewed and no additional complaints, except as documented and Denies rash Neurologic Neurologic: Reports system reviewed and no additional complaints, except as documented, Reports as per HPI and Denies headache(s) Past Medical History Past Medical History NEUROLOGIC: Negative Neurological Disorders or Seizures CARDIAC: Negative Cardiac Disorders or Congestive Heart Failure RESPIRATORY: Negative Chronic Obstructive Pulmonary Disease (COPD) or Asthma GENITOURINARY: Positive Genitourinary Disorders, Kidney Stones and Benign Prostatic Hyperplasia; Negative Renal Disease MUSCULOSKELETAL: Positive Musculoskeletal Disorders and Degenerative Joint Disease ENDOCRINE: Negative Diabetes Mellitus Type 1 or Diabetes Mellitus Type 2 HEMATOLOGIC: Negative Sickle Cell Disease OTHER HISTORY: Negative Blood Transfusions, Blood Transfusion Reaction or Anesthesia Reactions Social History SMOKING STATUS: Current every day smoker SUBSTANCE USE: does not use ED Exam General Limitations: Present no limitations General appearance: Present alert and in no apparent distress Head Head exam: Present atraumatic Eye Eye exam: Present normal appearance, PERRL and EOMI ENT ENT exam: Present normal exam, normal oropharynx and mucous membranes moist Neck Neck exam: Present normal inspection, full ROM and trachea midline Chest Chest inspection: Present normal inspection and symmetric chest wall rise Respiratory Respiratory exam: Present normal lung sounds bilaterally Cardiovascular Cardiovascular exam: Present regular rate, normal rhythm and normal heart sounds Abdominal Exam Abdominal exam: Present soft and normal bowel sounds; Absent distention, tenderness, guarding or rebound exam: Present other (Melgar catheter in place) Extremities Exam Extremities exam: Present normal inspection and full ROM Back Exam Back exam: Present normal inspection and full ROM Neurological Exam Neurological exam: Present alert, oriented X3 and CN II-XII intact Psychiatric Psychiatric exam: Present normal affect and normal mood Skin Skin exam: Present warm, dry, intact and normal color Course Quality Measures none Orders Category Date Time Status HYDROcodone*/APAP 5/325 [[place] 5/325] Med 11/29/24 06:58 Discontinued 1 tab PO X1 ONE Ketorolac Inj [Toradol Inj] Med 11/29/24 06:58 Discontinued 30 mg IM X1 ONE Vital Signs Vital signs: Vital Signs Temperature 98.2 F 11/29/24 06:37 Pulse Rate 88 11/29/24 06:37 Respiratory Rate 18 11/29/24 06:37 Blood Pressure 156/74 H 11/29/24 06:37 Pulse Oximetry (%) 97 11/29/24 06:37 Oxygen Delivery Method Room Air 11/29/24 06:37 O2 saturation 97% room air within normal limits Urogenital - Male MDM Narrative MDM Narrative:: 64-year-old male with medical history significant for bladder calculi presents to the emergency department for complaints of pelvic pain and penile pain patient reports a follow-up appointment with specialist at 1:30 PM in [place] patient would like pain medication before heading up to [place]. Patient reports no fever nausea or vomiting patient reports that this is his typical pain This is an ongoing recurrent problem for the patient patient reports he has follow-up in [place] and [place] Patient given pain medication per his request Patient does not want a lab work or imaging at this time patient reports he wants to go to [place] Patient structured to follow-up in [place] soon as possible for worsening symptoms return immediately Patient data External records reviewed:: [facility] previous records Clinical information provided by:: patient Social determinants that could affect healthcare access:: none Patient has the following chronic illnesses:: See history How is presenting disease/condition affected by chronic disease/condition?: caused by Evaluation data The following diagnostics were reviewed and interpreted by me:: other (specify) (na ) Lab and/or radiology exams considered but not ordered:: Considered and not ordered Interpretation Summary: N/A Medications / Prescriptions Medications or Prescriptions considered but not ordered:: Given Medication administrations:: Medication Administration History Discontinued Medications Hydrocodone Bitart/Acetaminophen (Hydrocodone/Apap 5/325 Tablet) 1 tab PO X1 ONE Stop: 11/29/24 06:59 Last Admin: 11/29/24 07:12 Dose: 1 tab Documented By: LISA Ketorolac Tromethamine (Ketorolac Inj 30 Mg/Ml Vial) 30 mg IM X1 ONE Stop: 11/29/24 06:59 Last Admin: 11/29/24 07:12 Dose: 30 mg Documented By: LISA Given Consultations Consultation(s) initiated? (list below): No Diagnosis Urogenital Male Differential Diagnosis: urinary tract infection, epididymitis and other Most likely diagnosis given after review of the tests above:: Bladder calculi Admission Indicated Admission indicated?: not indicated Admission Request Was there a request for admission?: No Disposition Plan Disposition Plan: Discharge Discharge Attestation Discharge Attestation: The patient and all family members were given an opportunity to ask questions and understood the discharge instructions. Discharge instructions specifically effects, indications for sooner follow up or return to the emergency department, and the expected course of current diagnosis. Patient condition: Stable Discharge Plan Plan Patient Disposition: HOME (Self Care) Discharge Disposition comment: Stable Prescriptions/Referrals Prescriptions/Med Rec: No Action tamsulosin [Flomax] 0.4 mg capsule 0.4 mg PO QDAY Qty: 20 0RF acetaminophen-codeine 300-30 mg tablet 1 tab PO Q8H PRN (Reason: pain) Qty: 20 0RF acetaminophen-codeine 300-30 mg tablet 1 tab PO Q8H PRN (Reason: pain) Qty: 20 0RF hydrocodone-acetaminophen 5-325 mg tablet 1 tab PO BID MDD 10 PRN (Reason: pain) Qty: 14 0RF ibuprofen 600 mg tablet 600 mg PO Q6H PRN (Reason: pain) Qty: 30 0RF acetaminophen-codeine 300-30 mg tablet 1 tab PO Q8H PRN (Reason: pain) Qty: 20 0RF ibuprofen 800 mg tablet 800 mg PO TID PRN (Reason: pain) Qty: 30 0RF hydrocodone-acetaminophen 5-325 mg tablet 1 tab PO BID MDD 10 PRN (Reason: pain) Qty: 10 0RF hydrocodone-acetaminophen 5-325 mg tablet 1 tab PO BID MDD 10mg PRN (Reason: pain) Qty: 6 0RF ketorolac 10 mg tablet 10 mg PO Q8H Qty: 10 0RF Rx Instructions: maximum total duration of 5 days from all oral, intranasal, or parenteral formulations Problem List Clinical Impression: Bladder calculi, Pain in penis Patient/Caregiver Discharge Instructions Education Materials: Anatomy of the Male Urinary Tract Additional Instructions: Please keep your appointment today at 130 in [place] for worsening symptoms or concerns return immediately Print Language: Serbian Stand Alone Forms: Latoya Award Info., Patient Portal Info Letter PA/BUSINESS DEVELOPMENT INTERN Supervising Physician PA/BUSINESS DEVELOPMENT INTERN Supervising Physician: dr andersen
[2024-11-29] MEDS: KETOROLAC INJ 30 MG/ML VIAL IM (07:12)
[2024-11-29] MEDS: HYDROcodone/APAP 5/325 TABLET 1 TAB PO (07:12)
== END 2024-11-29 07:15 | disposition home or self-care (01) ==
PROVIDERS: Emergency Provider Emergency Medicine; PCP Family Medicine
DX: N21.0 Calculus in bladder (principal); N48.89 Other specified disorders of penis
CPT/HCPCS: 96372; 99283; J1885; A9270

== ENCOUNTER 2024-12-01 09:44 | Emergency (ER) | payer MEDICAID, SELFPAY ==
[2024-12-01 10:10] VITALS: BP 149/81; PULSE 80; RESP 18; TEMP 36.7; O2SAT 98
--- NOTE | 2024-12-01 10:16 | EDNOTE_ITS ---
ED Male Genitalurinary RME/HPI General Chief complaint: Urogenital-Male Stated complaint: SAINI NEEDS TO BE CHANGED, GROIN PAIN, UTI Time Seen by Provider: 12/01/24 10:05 Source: patient Arrival date/time: 12/01/24 09:44 64-year-old male with a history of BPH presents to the emergency room with a chief complaint of a Saini that needs to be changed due to leaking from his leg bag. Mode of arrival: ambulatory Limitations: no limitations Related Data Previous Rx's ?Medication ?Instructions ?Recorded hydrocodone 5 mg-acetaminophen 325 1 tab PO BID PRN pa in #10 tabs 09/20/ mg tablet ibuprofen 800 mg tablet 800 mg PO TID PRN pain #30 t abs 09/20/24 tamsulosin 0.4 mg capsule (Flomax) 0.4 mg PO QDAY #20 caps 10/01/24 acetaminophen 300 mg-codeine 30 mg 1 tab PO Q8H PRN pa in #20 tabs 10/26/24 tablet acetaminophen 300 mg-codeine 30 mg 1 tab PO Q8H PRN pa in #20 tabs 10/26/24 tablet hydrocodone 5 mg-acetaminophen 325 1 tab PO BID PRN pa in #6 tabs 10/29/24 mg tablet ketorolac 10 mg tablet 10 mg PO Q8H #10 tabs hydrocodone 5 mg-acetaminophen 325 1 tab PO BID PRN pa in #14 tabs 11/09/24 mg tablet acetaminophen 300 mg-codeine 30 mg 1 tab PO Q8H PRN pa in #20 tabs 11/11/24 tablet ibuprofen 600 mg tablet 600 mg PO Q6H PRN pain #30 t abs 11/11/24 Allergies Allergy/AdvReac Type Severity Reaction Status Date / Time No Known Allergies Allergy Verified 12/01/24 09:48 Review of Systems Review of Systems Systems Reviewed: All systems reviewed, normal except as documented Constitutional Constitutional: Reports system reviewed and no additional complaints, except as documented, Denies fatigue, Denies fever(s), Denies headache(s) and Denies weakness Eyes Eyes: Reports system reviewed and no additional complaints, except as documented, Denies blurry vision and Denies change in vision ENT Ears, Nose, Mouth, and Throat: Reports system reviewed and no additional complaints, except as documented, Denies otalgia, Denies headache(s), Denies nasal congestion, Denies throat swelling and Denies vertigo Cardiovascular Cardiovascular: Reports system reviewed and no additional complaints, except as documented, Denies chest pain, Denies dyspnea and Denies dyspnea on exertion Respiratory Respiratory: Reports system reviewed and no additional complaints, except as documented, Denies chest congestion, Denies cough, Denies dyspnea, Denies dyspnea on exertion and Denies wheezing Gastrointestinal Gastrointestinal: Reports system reviewed and no additional complaints, except as documented, Denies abdominal pain, Denies cramping, Denies nausea and Denies vomiting Genitourinary Genitourinary: Reports system reviewed and no additional complaints, except as documented, Denies dysuria and Denies hematuria Musculoskeletal Musculoskeletal: Reports system reviewed and no additional complaints, except as documented and Denies back pain Integumentary/Breasts Skin/Breast: Reports system reviewed and no additional complaints, except as documented and Denies wounds Neurologic Neurologic: Reports system reviewed and no additional complaints, except as documented, Denies confusion, Denies headache(s), Denies lack of coordination, Denies vertigo and Denies weakness Psychiatric Psychiatric: Reports system reviewed and no additional complaints, except as documented, Denies anxiety, Denies confusion, Denies depression, Denies paranoia, Denies suicidal ideation and Denies tactile hallucinations Endocrine Endocrine: Reports system reviewed and no additional complaints, except as documented and Denies fatigue Hematologic/Lymphatic Hematologic/Lymphatic: Reports system reviewed and no additional complaints, except as documented and Denies lymphadenopathy Allergic/Immunologic Allergic/Immunologic: Reports system reviewed and no additional complaints, except as documented, Denies throat swelling, Denies urticaria and Denies wheezing Past Medical History Past Medical History NEUROLOGIC: Negative Neurological Disorders or Seizures CARDIAC: Negative Cardiac Disorders or Congestive Heart Failure RESPIRATORY: Negative Chronic Obstructive Pulmonary Disease (COPD) or Asthma GENITOURINARY: Positive Genitourinary Disorders, Kidney Stones and Benign Prostatic Hyperplasia; Negative Renal Disease MUSCULOSKELETAL: Positive Musculoskeletal Disorders and Degenerative Joint Disease ENDOCRINE: Negative Diabetes Mellitus Type 1 or Diabetes Mellitus Type 2 HEMATOLOGIC: Negative Sickle Cell Disease OTHER HISTORY: Negative Blood Transfusions, Blood Transfusion Reaction or Anesthesia Reactions Social History SMOKING STATUS: Current every day smoker SUBSTANCE USE: does not use ED Exam General Limitations: Present no limitations General appearance: Present alert and in no apparent distress Head Head exam: Present atraumatic Eye Eye exam: Present normal appearance, PERRL and EOMI ENT ENT exam: Present normal exam, normal oropharynx and mucous membranes moist Neck Neck exam: Present normal inspection, full ROM and trachea midline Chest Chest inspection: Present normal inspection and symmetric chest wall rise Respiratory Respiratory exam: Present normal lung sounds bilaterally Cardiovascular Cardiovascular exam: Present regular rate, normal rhythm and normal heart sounds Abdominal Exam Abdominal exam: Present soft and normal bowel sounds Extremities Exam Extremities exam: Present normal inspection and full ROM Back Exam Back exam: Present normal inspection and full ROM Neurological Exam Neurological exam: Present alert, oriented X3 and CN II-XII intact Psychiatric Psychiatric exam: Present normal affect and normal mood Skin Skin exam: Present warm, dry, intact and normal color Course Quality Measures none Vital Signs Vital signs: Vital Signs Temperature 98.1 F 12/01/24 10:10 Pulse Rate 80 12/01/24 10:10 Respiratory Rate 18 12/01/24 10:10 Blood Pressure 149/81 H 12/01/24 10:10 Pulse Oximetry (%) 98 12/01/24 10:10 Oxygen Delivery Method Room Air 12/01/24 10:10 Urogenital - Male MDM Narrative MDM Narrative:: 64-year-old male with a history of BPH presents to the emergency room with a chief complaint of a Saini that needs to be changed due to leaking from his leg bag. Patient is hemodynamically stable and in no apparent distress Patient states he is only here for a leaking leg bag from his Saini catheter. The patients leg bag was replaced. Patient was seen by his urologist yesterday and was discharged with antibiotics and he has a follow-up appointment with them next week Patient was discharged and educated to follow-up with primary care provider in the next 24 to 48 hours and return to the emergency room for any evidence of worsening signs or symptoms Patient data External records reviewed:: [facility] previous records Clinical information provided by:: patient Social determinants that could affect healthcare access:: none Patient has the following chronic illnesses:: No chronic illness How is presenting disease/condition affected by chronic disease/condition?: no chronic disease Evaluation data The following diagnostics were reviewed and interpreted by me:: lab results and radiology exam(s) Lab and/or radiology exams considered but not ordered:: Labs and radiology exams considered and ordered 1 Interpretation Summary: N/A Medications / Prescriptions Medications or Prescriptions considered but not ordered:: No medication given Medication administrations:: No medication given Consultations Consultation(s) initiated? (list below): No Diagnosis Urogenital Male Differential Diagnosis: other (Complications of Saini catheter) Most likely diagnosis given after review of the tests above:: Complications of Saini catheter Admission Indicated Admission indicated?: not indicated Admission Request Was there a request for admission?: No Disposition Plan Disposition Plan: Discharge Discharge Attestation Discharge Attestation: The patient and all family members were given an opportunity to ask questions and understood the discharge instructions. Discharge instructions specifically effects, indications for sooner follow up or return to the emergency department, and the expected course of current diagnosis. Patient condition: Stable Discharge Plan Plan Patient Disposition: HOME (Self Care) Discharge Disposition comment: Stable Prescriptions/Referrals Prescriptions/Med Rec: No Action tamsulosin [Flomax] 0.4 mg capsule 0.4 mg PO QDAY Qty: 20 0RF acetaminophen-codeine 300-30 mg tablet 1 tab PO Q8H PRN (Reason: pain) Qty: 20 0RF acetaminophen-codeine 300-30 mg tablet 1 tab PO Q8H PRN (Reason: pain) Qty: 20 0RF hydrocodone-acetaminophen 5-325 mg tablet 1 tab PO BID MDD 10 PRN (Reason: pain) Qty: 14 0RF ibuprofen 600 mg tablet 600 mg PO Q6H PRN (Reason: pain) Qty: 30 0RF acetaminophen-codeine 300-30 mg tablet 1 tab PO Q8H PRN (Reason: pain) Qty: 20 0RF ibuprofen 800 mg tablet 800 mg PO TID PRN (Reason: pain) Qty: 30 0RF hydrocodone-acetaminophen 5-325 mg tablet 1 tab PO BID MDD 10 PRN (Reason: pain) Qty: 10 0RF hydrocodone-acetaminophen 5-325 mg tablet 1 tab PO BID MDD 10mg PRN (Reason: pain) Qty: 6 0RF ketorolac 10 mg tablet 10 mg PO Q8H Qty: 10 0RF Rx Instructions: maximum total duration of 5 days from all oral, intranasal, or parenteral formulations Problem List Clinical Impression: Urinary catheter complication Patient/Caregiver Discharge Instructions Additional Instructions: Please follow-up with your primary care provider in the next 24 to 48 hours Please continue to take your antibiotics that were prescribed by your urologist. Please keep your urologist appointment For any evidence of worsening signs or symptoms return to the emergency room immediately Print Language: Chinese Stand Alone Forms: Latoya Award Info., Patient Portal Info Letter PA/INTAKE WORKER Supervising Physician PA/INTAKE WORKER Supervising Physician: Dr. Oswald
--- NOTE | 2024-12-01 10:19 | PC.NURSE ---
FC intact and patent draining to gravity. Urine cloudy dark yellow with sediment. Patient on ABX currently. Leg bag and cath secure changed.
== END 2024-12-01 10:20 | disposition home or self-care (01) ==
LOC: SERX 10:22
PROVIDERS: Emergency Provider Family Medicine; PCP Family Medicine
DX: T83.038A Leakage of other urinary catheter, initial encounter (principal); N40.0 Benign prostatic hyperplasia without lower urinary tract symptoms; F17.210 Nicotine dependence, cigarettes, uncomplicated; Y73.2 Prosthetic and other implants, materials and accessory gastroenterology and urology devices associated with adverse incidents; Y84.6 Urinary catheterization as the cause of abnormal reaction of the patient, or of later complication, without mention of misadventure at the time of the procedure
CPT/HCPCS: 99281

== ENCOUNTER 2024-12-02 07:04 | Emergency (ER) | payer MEDICAID, SELFPAY ==
[2024-12-02 07:05] VITALS: BMI 21.5
[2024-12-02 07:16] VITALS: BP 128/68; PULSE 97; RESP 19; TEMP 36.5; O2SAT 98
--- NOTE | 2024-12-02 07:31 | EDNOTE_ITS ---
ED Abdominal Pain RME/HPI General Chief Complaint: Abdominal Pain Stated complaint: KIDNEY STONE PAIN x 2 HOURS Time seen by provider: 12/02/24 07:06 Arrival date/time: 12/02/24 07:04 This is a 64-year-old male with a history of BPH and history of kidney stones presents to the emergency room with a chief complaint of abdominal pain and back pain. Patient states his pain is not different than it was previously. Patient states that she he was seen here yesterday to have his Melgar that needs to be changed due to leaking from his leg bag. Patient states that 2 days ago he was seen in [place] by urologist. Patient reports that he supposed to have surgery in a week patient cannot tell me the urologist's name. Patient states he is on antibiotics currently. Patient denies fever chills or any other new symptoms. Related Data Previous Rx's ?Medication ?Instructions ?Recorded hydrocodone 5 mg-acetaminophen 325 1 tab PO BID PRN pa in #10 tabs 09/20/24 mg tablet ibuprofen 800 mg tablet 800 mg PO TID PRN pain #30 t abs 09/20/24 tamsulosin 0.4 mg capsule (Flomax) 0.4 mg PO QDAY #20 caps 10/01/24 acetaminophen 300 mg-codeine 30 mg 1 tab PO Q8H PRN pa in #20 tabs 10/26/24 tablet acetaminophen 300 mg-codeine 30 mg 1 tab PO Q8H PRN pa in #20 tabs 10/26/24 tablet hydrocodone 5 mg-acetaminophen 325 1 tab PO BID PRN pa in #6 tabs 10/29/24 mg tablet ketorolac 10 mg tablet 10 mg PO Q8H #10 tabs hydrocodone 5 mg-acetaminophen 325 1 tab PO BID PRN pa in #14 tabs 11/09/24 mg tablet acetaminophen 300 mg-codeine 30 mg 1 tab PO Q8H PRN pa in #20 tabs 11/11/24 tablet ibuprofen 600 mg tablet 600 mg PO Q6H PRN pain #30 t abs 11/11/24 acetaminophen 300 mg-codeine 30 mg 1 tab PO Q8H PRN pa in #20 tabs 12/14/24 tablet tamsulosin 0.4 mg capsule (Flomax) 0.4 mg PO QDAY #20 caps 12/14/24 ketorolac 10 mg tablet 10 mg PO Q6H PRN pain #30 ta bs 12/18/24 Allergies Allergy/AdvReac Type Severity Reaction Status Date / Time No Known Allergies Allergy Verified 12/18/24 20:23 Review of Systems Review of Systems Systems Reviewed: All systems reviewed, normal except as documented Past Medical History Past Medical History NEUROLOGIC: Negative Neurological Disorders or Seizures CARDIAC: Negative Cardiac Disorders or Congestive Heart Failure RESPIRATORY: Negative Chronic Obstructive Pulmonary Disease (COPD) or Asthma GENITOURINARY: Positive Genitourinary Disorders, Kidney Stones and Benign Prostatic Hyperplasia; Negative Renal Disease MUSCULOSKELETAL: Positive Musculoskeletal Disorders and Degenerative Joint Disease ENDOCRINE: Negative Diabetes Mellitus Type 1 or Diabetes Mellitus Type 2 HEMATOLOGIC: Negative Sickle Cell Disease OTHER HISTORY: Negative Blood Transfusions, Blood Transfusion Reaction or Anesthesia Reactions Social History SMOKING STATUS: Current every day smoker SUBSTANCE USE: does not use ED Exam Narrative Physical exam: VITAL SIGNS: Reviewed. GENERAL APPEARANCE: Alert and interactive, follows commands, no acute distress HEAD AND FACE: Non-traumatic. ENT: PERRL, conjuctiva pink and clear, eyelid no trauma, Mucous membrane moist. NECK: Supple, nontender, no nuchal rigidity. CHEST: No tenderness, no crepitus, no paradoxical movement, no retractions. LUNGS: breathing even and unlabored HEART: Regular rate, cap refill less than 2 seconds ABDOMEN: Soft, nondistended, no guarding, nontender, leg bag Melgar catheter NEUROLOGICAL: Gross motor function intact sensory function intact, Appropriate for age. MUSCULOSKELETAL: low back nontender, full range of motion. EXTREMITIES: No redness no swelling no skin breakdown on bilateral foot and leg. Distal neurovascular status intact bilateral foot SKIN: Color pink, dry Course Quality Measures none Orders Category Date Time Status HYDROcodone*/APAP 5/325 [[place] 5/325] Med 12/02/24 07:29 Discontinued 1 tab PO X1 ONE Ketorolac Inj [Toradol Inj] Med 12/02/24 07:29 Discontinued 30 mg IM X1 ONE Ondansetron Odt [Zofran Odt] Med 12/02/24 07:29 Discontinued 4 mg PO X1 ONE Vital Signs Vital signs: Vital Signs Temperature 97.7 F 12/02/24 07:16 Pulse Rate 97 12/02/24 07:16 Respiratory Rate 19 12/02/24 07:16 Blood Pressure 128/68 12/02/24 07:16 Pulse Oximetry (%) 98 12/02/24 07:16 Oxygen Delivery Method Room Air 12/02/24 07:16 Abdominal Pain MDM MDM Narrative MDM Narrative:: I spoke to patient at length. He cannot tell me his urologist's name and he can also not tell me what antibiotics he is currently taking. He does not remember the name of the medication he is taking for pain. Patient states he was in [place] and saw his urologist 2 days ago. Patient states he supposed to have surgery with him in a week. Patient does not want any labs and states he just needs something for pain. I explained to patient at length that if symptoms change or worsen to come back to the emergency room. Patient verbalized understanding. Will give patient [place] Toradol and Zofran. Dragon dictation: Although this document has been carefully reviewed, there may still be some phonetic and other typographical errors. These errors are purely grammatical due to imperfections in the software program and should not be construed in any way to compromise the substance of the patient's medical care during this visit. Patient data External records reviewed:: [facility] previous records Clinical information provided by:: patient Social determinants that could affect healthcare access:: none Patient has the following chronic illnesses:: see hpi How is presenting disease/condition affected by chronic disease/condition?: no chronic disease Evaluation data The following diagnostics were reviewed and interpreted by me:: lab results Lab and/or radiology exams considered but not ordered:: none Interpretation Summary: see note Medications / Prescriptions Medications or Prescriptions considered but not ordered:: none Medication administrations:: Medication Administration History Discontinued Medications Hydrocodone Bitart/Acetaminophen (Hydrocodone/Apap 5/325 Tablet) 1 tab PO X1 ONE Stop: 12/02/24 07:30 Last Admin: 12/02/24 08:05 Dose: 1 tab Documented By: CATALINA Ketorolac Tromethamine (Ketorolac Inj 60 Mg/2 Ml Vial) 30 mg IM X1 ONE Stop: 12/02/24 07:30 Last Admin: 12/02/24 08:06 Dose: 30 mg Documented By: CATALINA Ondansetron HCl (Ondansetron Odt 4 Mg Tabrap) 4 mg PO X1 ONE; Protocol Stop: 12/02/24 07:30 Last Admin: 12/02/24 08:06 Dose: 4 mg Documented By: CATALINA see [facility] Consultations Consultation(s) initiated? (list below): No Diagnosis Differential diagnosis abdominal pain: abdominal pain, calculus of kidney, constipation and other (uti) Most likely diagnosis given after review of the tests above:: bph, urinary retention Admission Indicated Admission indicated?: not indicated Admission Request Was there a request for admission?: No Disposition Plan Disposition Plan: Discharge Discharge Attestation Discharge Attestation: The patient and all family members were given an opportunity to ask questions and understood the discharge instructions. Discharge instructions specifically effects, indications for sooner follow up or return to the emergency department, and the expected course of current diagnosis. Patient condition: Stable Discharge Plan Plan Patient Disposition: HOME (Self Care) Patient condition on transfer: Stable Prescriptions/Referrals Prescriptions/Med Rec: No Action tamsulosin [Flomax] 0.4 mg capsule 0.4 mg PO QDAY Qty: 20 0RF acetaminophen-codeine 300-30 mg tablet 1 tab PO Q8H PRN (Reason: pain) Qty: 20 0RF acetaminophen-codeine 300-30 mg tablet 1 tab PO Q8H PRN (Reason: pain) Qty: 20 0RF hydrocodone-acetaminophen 5-325 mg tablet 1 tab PO BID MDD 10 PRN (Reason: pain) Qty: 14 0RF ibuprofen 600 mg tablet 600 mg PO Q6H PRN (Reason: pain) Qty: 30 0RF acetaminophen-codeine 300-30 mg tablet 1 tab PO Q8H PRN (Reason: pain) Qty: 20 0RF ibuprofen 800 mg tablet 800 mg PO TID PRN (Reason: pain) Qty: 30 0RF hydrocodone-acetaminophen 5-325 mg tablet 1 tab PO BID MDD 10 PRN (Reason: pain) Qty: 10 0RF hydrocodone-acetaminophen 5-325 mg tablet 1 tab PO BID MDD 10mg PRN (Reason: pain) Qty: 6 0RF ketorolac 10 mg tablet 10 mg PO Q8H Qty: 10 0RF Rx Instructions: maximum total duration of 5 days from all oral, intranasal, or parenteral formulations acetaminophen-codeine 300-30 mg tablet 1 tab PO Q8H PRN (Reason: pain) Qty: 20 0RF tamsulosin [Flomax] 0.4 mg capsule 0.4 mg PO QDAY Qty: 20 0RF ketorolac 10 mg tablet 10 mg PO Q6H PRN (Reason: pain) Qty: 30 0RF Rx Instructions: maximum total duration of 5 days from all oral, intranasal, or parenteral formulations Problem List Clinical Impression: Abdominal pain, BPH (benign prostatic hyperplasia), Kidney calculi Patient/Caregiver Discharge Instructions Discharge Activity: activity as tolerated Education Materials: Abdominal Pain, ED BPH (Enlarged Prostate) Additional Instructions: follow up with primary provider in 1-2 days. Come back to ED if symptoms change or worsen. Keep scheduled appointment with primary doctor and urologist. Print Language: Croatian Stand Alone Forms: Latoya Award Info., Patient Portal Info Letter PA/FURNACE CLERK Supervising Physician PA/FURNACE CLERK Supervising Physician: dave
[2024-12-02] MEDS: HYDROcodone/APAP 5/325 TABLET 1 TAB PO (08:05)
[2024-12-02] MEDS: KETOROLAC INJ 60 MG/2 ML VIAL 30 MG IM (08:06)
[2024-12-02] MEDS: ONDANSETRON ODT 4 MG TABRAP PO (08:06)
== END 2024-12-02 08:10 | disposition home or self-care (01) ==
PROVIDERS: Emergency Provider Emergency Medicine; PCP Family Medicine
DX: N20.0 Calculus of kidney (principal); N40.0 Benign prostatic hyperplasia without lower urinary tract symptoms
CPT/HCPCS: 96372; 99283; J1885; Q0162; A9270

== ENCOUNTER 2024-12-02 23:58 | Emergency (ER) | payer MEDICAID, SELFPAY ==
--- NOTE | 2024-12-03 00:35 | EDNOTE_ITS ---
ED General RME/HPI General Chief complaint: General Adult/Misc Complain Stated complaint: LOWER ABD PAIN Time Seen by Provider: 12/03/24 00:05 Arrival date/time: 12/02/24 23:58 This is a 64-year-old male with a history of BPH and history of kidney stones presents to the emergency room with a chief complaint of abdominal pain requesting a Toradol injection for pain. Patient states his pain is not different than it was previously. Patient states that she he was seen here yesterday morning due to pain on the lower abdomen patient had Melgar catheter and was inserted 2 days ago patient history was reviewed yesterday patient refused any test and imaging and only wanted to have Toradol injection thus the provider yesterday was given medication and the patient was discharged patient states that 2 days ago he was seen in [place] by urologist. Patient reports that he supposed to have surgery in a week patient cannot tell me the urologist's name. Patient states he is on antibiotics currently. Patient denies fever chills or any other new symptom today patient came back for Toradol injection again for pain and states that show he will see the urologist as scheduled and refused any blood test and imaging same way yesterday Limitations: no limitations Related Data Previous Rx's ?Medication ?Instructions ?Recorded hydrocodone 5 mg-acetaminophen 325 1 tab PO BID PRN pa in #10 tabs 09/20/24 mg tablet ibuprofen 800 mg tablet 800 mg PO TID PRN pain #30 t abs 09/20/24 tamsulosin 0.4 mg capsule (Flomax) 0.4 mg PO QDAY #20 caps 10/01/24 acetaminophen 300 mg-codeine 30 mg 1 tab PO Q8H PRN pa in #20 tabs 10/26/24 tablet acetaminophen 300 mg-codeine 30 mg 1 tab PO Q8H PRN pa in #20 tabs 10/26/24 tablet hydrocodone 5 mg-acetaminophen 325 1 tab PO BID PRN pa in #6 tabs 10/29/24 mg tablet ketorolac 10 mg tablet 10 mg PO Q8H #10 tabs hydrocodone 5 mg-acetaminophen 325 1 tab PO BID PRN pa in #14 tabs 11/09/24 mg tablet acetaminophen 300 mg-codeine 30 mg 1 tab PO Q8H PRN pa in #20 tabs 11/11/24 tablet ibuprofen 600 mg tablet 600 mg PO Q6H PRN pain #30 t abs 11/11/24 Allergies Allergy/AdvReac Type Severity Reaction Status Date / Time No Known Allergies Allergy Verified 12/03/24 00:01 Review of Systems Review of Systems Systems Reviewed: All systems reviewed, normal except as documented Constitutional Constitutional: Reports system reviewed and no additional complaints, except as documented and Reports as per HPI Cardiovascular Cardiovascular: Reports system reviewed and no additional complaints, except as documented and Reports as per HPI Gastrointestinal Gastrointestinal: Reports system reviewed and no additional complaints, except as documented and Reports as per HPI Musculoskeletal Musculoskeletal: Reports system reviewed and no additional complaints, except as documented and Reports as per HPI Neurologic Neurologic: Reports system reviewed and no additional complaints, except as documented and Reports as per HPI Past Medical History Past Medical History NEUROLOGIC: Negative Neurological Disorders or Seizures CARDIAC: Negative Cardiac Disorders or Congestive Heart Failure RESPIRATORY: Negative Chronic Obstructive Pulmonary Disease (COPD) or Asthma GENITOURINARY: Positive Genitourinary Disorders, Kidney Stones and Benign Prostatic Hyperplasia; Negative Renal Disease MUSCULOSKELETAL: Positive Musculoskeletal Disorders and Degenerative Joint Disease ENDOCRINE: Negative Diabetes Mellitus Type 1 or Diabetes Mellitus Type 2 HEMATOLOGIC: Negative Sickle Cell Disease OTHER HISTORY: Negative Blood Transfusions, Blood Transfusion Reaction or Anesthesia Reactions Social History SMOKING STATUS: Current every day smoker SUBSTANCE USE: does not use ED Exam General Limitations: Present no limitations General appearance: Present alert, in no apparent distress and other (Patient is awake alert oriented not in distress nontoxic looking well-hydrated well- nourished) Head Head exam: Present atraumatic, normocephalic and normal inspection Eye Eye exam: Present normal appearance, PERRL and EOMI ENT ENT exam: Present normal exam, normal oropharynx and mucous membranes moist Neck Neck exam: Present normal inspection, full ROM and trachea midline Chest Chest inspection: Present normal inspection and symmetric chest wall rise; Absent tenderness Respiratory Respiratory exam: Present normal lung sounds bilaterally; Absent respiratory distress, wheezes, stridor, accessory muscle use or prolonged expiratory phase Cardiovascular Cardiovascular exam: Present regular rate, normal rhythm and normal heart sounds; Absent bradycardia, tachycardia, irregular rhythm, systolic murmur or diastolic murmur Abdominal Exam Abdominal exam: Present soft and normal bowel sounds; Absent distention, tenderness, guarding, rebound, rigidity, diminished bowel sounds, hyperactive bowel sounds, hypoactive bowel sounds, organomegaly, psoas sign, obturator sign, Alvarenga's sign, Rovsing's sign, tenderness at McBurney's Point or hernia Extremities Exam Extremities exam: Present normal inspection and full ROM Back Exam Back exam: Present normal inspection and full ROM Neurological Exam Neurological exam: Present alert, oriented X3, CN II-XII intact, normal gait and reflexes normal; Absent motor sensory deficit Psychiatric Psychiatric exam: Present normal affect, normal mood and other (Patient is uncooperative on monotherapy only wanted to have injection shot refused blood test and in) Skin Skin exam: Present warm, dry, intact and normal color Course Quality Measures none Orders Category Date Time Status Ketorolac Inj [Toradol Inj] Med 12/03/24 00:19 Discontinued 15 mg IM X1 ONE Vital Signs Vital signs: Patient vital signs the stable Discharge Plan Plan Patient Disposition: HOME (Self Care) Patient condition on transfer: Stable Prescriptions/Referrals Prescriptions/Med Rec: No Action tamsulosin [Flomax] 0.4 mg capsule 0.4 mg PO QDAY Qty: 20 0RF acetaminophen-codeine 300-30 mg tablet 1 tab PO Q8H PRN (Reason: pain) Qty: 20 0RF acetaminophen-codeine 300-30 mg tablet 1 tab PO Q8H PRN (Reason: pain) Qty: 20 0RF hydrocodone-acetaminophen 5-325 mg tablet 1 tab PO BID MDD 10 PRN (Reason: pain) Qty: 14 0RF ibuprofen 600 mg tablet 600 mg PO Q6H PRN (Reason: pain) Qty: 30 0RF acetaminophen-codeine 300-30 mg tablet 1 tab PO Q8H PRN (Reason: pain) Qty: 20 0RF ibuprofen 800 mg tablet 800 mg PO TID PRN (Reason: pain) Qty: 30 0RF hydrocodone-acetaminophen 5-325 mg tablet 1 tab PO BID MDD 10 PRN (Reason: pain) Qty: 10 0RF hydrocodone-acetaminophen 5-325 mg tablet 1 tab PO BID MDD 10mg PRN (Reason: pain) Qty: 6 0RF ketorolac 10 mg tablet 10 mg PO Q8H Qty: 10 0RF Rx Instructions: maximum total duration of 5 days from all oral, intranasal, or parenteral formulations Problem List Clinical Impression: Abdominal pain, Chronic pain, BPH (benign prostatic hyperplasia) Patient/Caregiver Discharge Instructions Education Materials: Abdominal Pain, ED BPH (Enlarged Prostate), ED Chronic Pain Additional Instructions: Follow-up with your primary care physician in 2 days for reevaluation it is very important to see your urologist for further evaluation and treatment of your kidney stone BPH and urinary retention for any recurrence persistent worsening symptoms or any emergent concern call 911 or go to the nearest emergency room follow-up with your PCP to be referred to pain management doctor for your c hronic pain and pain control Print Language: Czech Stand Alone Forms: Latoya Award Info., Patient Portal Info Letter PA/FARM APPRAISER Supervising Physician PA/FARM APPRAISER Supervising Physician: Dr. Jauregui [facility] Narrative Sign out note: This is a 64-year-old male with a history of BPH and history of kidney stones presents to the emergency room with a chief complaint of abdominal pain requesting a Toradol injection for pain. Patient states his pain is not diff erent than it was previously. Patient states that she he was seen here yesterday morning due to pain on the lower abdomen patient had Melgar catheter and was inserted 2 days ago patient history was reviewed yesterday patient refused any test and imaging and only wanted to have Toradol injection thus the provider yesterday was given medication and the patient was discharged patient states that 2 days ago he was seen in [place] by urologist. Patient reports that he supposed to have surgery in a week patient cannot tell me the urologist's name. Patient states he is on antibiotics currently. Patient denies fever chills or any other new symptom today patient came back for Toradol injection again for pain and states that show he will see the urologist as scheduled and refused any blood test and imaging same way yesterday patient is awake alert oriented not in distress nontoxic looking well-hydrated well-nourished abdominal exam is benign nonsurgical no guarding no rebound no rigidity no tenderness negative psoas negative straight or negative Rovsing's negative McBurney's negative Alvarenga sign negative CVA tenderness patient refused any imaging and blood test only wanted to have Toradol shot patient was given Toradol 15 mg IM and patient was discharged patient will follow-up with urologist as scheduled for any worsening symptoms or any emergent condition return precaution in the ER was advised patient was also advised that he cannot take anymore Toradol today patient will just continue the medication that was prescribed from the previous visit Clinical Information Provided by none Medical Records Reviewed None Meds/Rx Considered, not Ordered None (Given) Describe details: Given Labs/Rad/Tests considered, not Ordered None Chronic Illness/Social Conditions which may negatively complicate care or outcome(s)-explain: None or not applicable EKG EKG not done Lab Interpretation Labs: none Imaging Imaging interpretation: none Medication Administration(s) none (Given) Medication Administration History Discontinued Medications Ketorolac Tromethamine (Ketorolac Inj 60 Mg/2 Ml Vial) 15 mg IM X1 ONE Stop: 12/03/24 00:20 Diagnosis Differential diagnosis: Chronic pain abdominal pain Differential dx and/or dx ruled out: Chronic pain abdominal pain Most likely dx, and/or detailed dx discussion: Chronic pain abdominal pain Dispositon Disposition: Discharge Home
[2024-12-03] MEDS: KETOROLAC INJ 60 MG/2 ML VIAL 15 MG IM (00:37)
[2024-12-03 00:39] VITALS: BP 136/91; PULSE 99; RESP 18; TEMP 36.6; O2SAT 99
== END 2024-12-03 00:41 | disposition home or self-care (01) ==
LOC: SERX 12-03 00:43
PROVIDERS: Emergency Provider Family Medicine
DX: R10.30 Lower abdominal pain, unspecified (principal); N40.0 Benign prostatic hyperplasia without lower urinary tract symptoms; Z87.442 Personal history of urinary calculi
CPT/HCPCS: 96372; 99282; J1885

== ENCOUNTER 2024-12-14 18:49 | Emergency (ER) | payer MEDICAID, SELFPAY ==
[2024-12-14 19:31] VITALS: BP 160/68; PULSE 89; RESP 16; TEMP 37.1; O2SAT 97
--- NOTE | 2024-12-14 19:51 | PD.EDADULT ---
ED General RME/HPI General Chief complaint: Abdominal Pain Stated complaint: ABD PAIN Time Seen by Provider: 12/14/24 19:43 Arrival date/time: 12/14/24 18:49 RME / HPI RME / HPI narrative: 64-year-old male patient who is known to us/ coming to us for evaluation regarding regarding pelvic pain. Patient has been having pelvic pain, has been chronic, due to Melgar catheter, also complaining of penile pain. Severity moderate. Patient was seen in [place], and scheduled for surgery in 12 days. Regarding kidney stones and bladder stones. He was recently seen by his urologist, and was prescribed Flomax and oxycodone. Patient ran out of his oxycodone that is why patient came to us for pain. Patient is denying any fever denies any abdominal pain denies any other complaints no medication was taken prior to arrival. He told me that his catheter is working fine. He is also currently taking antibiotic. Related Data Previous Rx's ?Medication ?Instructions ?Recorded hydrocodone 5 mg-acetaminophen 325 1 tab PO BID PRN pain #10 tabs 09/20/ mg tablet ibuprofen 800 mg tablet 800 mg PO TID PRN pain #30 tabs 09/20/24 tamsulosin 0.4 mg capsule (Flomax) 0.4 mg PO QDAY #20 caps 10/01/24 acetaminophen 300 mg-codeine 30 mg 1 tab PO Q8H PRN pain #20 tabs 10/26/24 tablet acetaminophen 300 mg-codeine 30 mg 1 tab PO Q8H PRN pain #20 tabs 10/26/24 tablet hydrocodone 5 mg-acetaminophen 325 1 tab PO BID PRN pain #6 tabs 10/29/24 mg tablet ketorolac 10 mg tablet 10 mg PO Q8H #10 tabs 11/02/24 hydrocodone 5 mg-acetaminophen 325 1 tab PO BID PRN pain #14 tabs 11/09/24 mg tablet acetaminophen 300 mg-codeine 30 mg 1 tab PO Q8H PRN pain #20 tabs 11/11/24 tablet ibuprofen 600 mg tablet 600 mg PO Q6H PRN pain #30 tabs 11/11/24 acetaminophen 300 mg-codeine 30 mg 1 tab PO Q8H PRN pain #20 tabs 12/14/24 tablet tamsulosin 0.4 mg capsule (Flomax) 0.4 mg PO QDAY #20 caps 12/14/24 Allergies Allergy/AdvReac Type Severity Reaction Status Date / Time No Known Allergies Allergy Verified 12/03/24 00:01 Review of Systems Review of Systems Narrative Review of Systems: Review of system reviewed and within normal limits except mentioned in HPI ED Exam Narrative Physical exam: VITAL SIGNS: Reviewed. GENERAL APPEARANCE: Alert and interactive, follows commands, no acute distress, HEAD AND FACE: Non-traumatic. ENT: PERRL, pink conjunctivitis, eyelid no trauma, Mucous membrane moist. NECK: Supple, nontender, no nuchal rigidity. CHEST: No tenderness, no crepitus, no paradoxical movement, no retractions. LUNGS: Clear, well ventilated, symmetric, no rales, no wheezing, no ronchi, no stridor, good breath sounds bilaterally. HEART: Regular rate, regular rhythm, no murmur, no gallops. ABDOMEN: Soft, positive bowel sounds, nondistended, no guarding, nontender, no rebound, no masses, RECTAL: Deferred. GENITAL: Melgar catheter intact, draining, pelvic tenderness, penile tenderness no redness no swelling noted of the penis NEUROLOGICAL: Gross motor function intact sensory function intact, Appropriate for age. MUSCULOSKELETAL: low back nontender, full range of motion. EXTREMITIES: Nontender, full range of motion. SKIN: Color pink, dry, no rash, no lacerations, no abrasions, no contusions. LYMPHATICS: Deferred. Course Quality Measures none Orders Category Date Time Status Ketorolac Inj [Toradol Inj] Med 12/14/24 19:50 Discontinued 30 mg IM X1 ONE Vital Signs Vital signs: Vital Signs Temperature 98.8 F 12/14/24 19:31 Pulse Rate 89 12/14/24 19:31 Respiratory Rate 16 12/14/24 19:31 Blood Pressure 160/68 H 12/14/24 19:31 Pulse Oximetry (%) 97 12/14/24 19:31 Oxygen Delivery Method Room Air 12/14/24 19:31 Discharge Plan Plan Patient Disposition: HOME (Self Care) Discharge Disposition comment: stable Prescriptions/Referrals Prescriptions/Med Rec: New acetaminophen-codeine 300-30 mg tablet 1 tab PO Q8H PRN (Reason: pain) Qty: 20 0RF tamsulosin [Flomax] 0.4 mg capsule 0.4 mg PO QDAY Qty: 20 0RF No Action tamsulosin [Flomax] 0.4 mg capsule 0.4 mg PO QDAY Qty: 20 0RF acetaminophen-codeine 300-30 mg tablet 1 tab PO Q8H PRN (Reason: pain) Qty: 20 0RF acetaminophen-codeine 300-30 mg tablet 1 tab PO Q8H PRN (Reason: pain) Qty: 20 0RF hydrocodone-acetaminophen 5-325 mg tablet 1 tab PO BID MDD 10 PRN (Reason: pain) Qty: 14 0RF ibuprofen 600 mg tablet 600 mg PO Q6H PRN (Reason: pain) Qty: 30 0RF acetaminophen-codeine 300-30 mg tablet 1 tab PO Q8H PRN (Reason: pain) Qty: 20 0RF ibuprofen 800 mg tablet 800 mg PO TID PRN (Reason: pain) Qty: 30 0RF hydrocodone-acetaminophen 5-325 mg tablet 1 tab PO BID MDD 10 PRN (Reason: pain) Qty: 10 0RF hydrocodone-acetaminophen 5-325 mg tablet 1 tab PO BID MDD 10mg PRN (Reason: pain) Qty: 6 0RF ketorolac 10 mg tablet 10 mg PO Q8H Qty: 10 0RF Rx Instructions: maximum total duration of 5 days from all oral, intranasal, or parenteral formulations Referrals: Parminder Lyles MD [Primary Care Provider, Family Practice] - In 1 week Problem List Clinical Impression: Pain in penis, Male pelvic pain Patient/Caregiver Discharge Instructions Discharge Activity: activity as tolerated Education Materials: Measuring Your Pain Additional Instructions: Thank you for the opportunity for serving you today. You are stable for discharged . You are advised to: Follow-up with your PCP in 1 to 2 days Return to ED for worsening of symptoms Increase oral fluids Take medication as prescribed Print Language: Serbian Stand Alone Forms: Latoya Award Info., Patient Portal Info Letter ALPHONSO/CECILIA Supervising Physician ALPHONSO/CECILIA Supervising Physician: MD Juventino MDM Narrative MDM hospital course (for use when minimal MDM required): 64-year-old male patient who is known to us/ coming to us for evaluation regarding regarding pelvic pain. Patient has been having pelvic pain, has been chronic, due to Melgar catheter, also complaining of penile pain. Severity moderate. Patient was seen in [place], and scheduled for surgery in 12 days. Regarding kidney stones and bladder stones. He was recently seen by his urologist, and was prescribed Flomax and oxycodone. Patient ran out of his oxycodone that is why patient came to us for pain. Patient is denying any fever denies any abdominal pain denies any other complaints no medication was taken prior to arrival. He told me that his catheter is working fine. He is also currently taking antibiotic. Patient received Toradol IM with significant proving of pain. I will send him home on Tylenol with codeine and Flomax. Patient was advised to follow-up with his urologist in [place] for worsening of pain. Patient agrees with the plan. Imaging or workup is not needed at this time. Medication Administration(s) Medication Administration History Discontinued Medications Ketorolac Tromethamine (Ketorolac Inj 60 Mg/2 Ml Vial) 30 mg IM X1 ONE Stop: 12/14/24 19:51 Last Admin: 12/14/24 20:05 Dose: 30 mg Documented By: DELMY Diagnosis Differential Diagnosis ED Complaint MDM: Penile pain, chronic pelvic pain, drug-seeking behavior, Diagnoses ruled out and/or further discussions: Penile pain, chronic pelvic pain, history of kidney stone and bladder stone
[2024-12-14] MEDS: KETOROLAC INJ 60 MG/2 ML VIAL 30 MG IM (20:05)
== END 2024-12-14 20:26 | disposition home or self-care (01) ==
PROVIDERS: Emergency Provider Emergency Medicine; PCP Family Medicine
DX: N48.89 Other specified disorders of penis (principal); R10.2 Pelvic and perineal pain
CPT/HCPCS: 96372; 99282; J1885

== ENCOUNTER 2024-12-18 20:20 | Emergency (ER) | payer MEDICAID, SELFPAY ==
[2024-12-18 20:21] VITALS: BP 135/77; PULSE 77; RESP 18; TEMP 36.7; O2SAT 100
--- NOTE | 2024-12-18 21:26 | EDNOTE_ITS ---
ED Male Genitalurinary RME/HPI General Chief complaint: Urogenital-Male Stated complaint: PENIS PAIN Time Seen by Provider: 12/18/24 20:32 Source: patient, RN notes reviewed and old records reviewed Arrival date/time: 12/18/24 20:20 Mode of arrival: ambulatory Limitations: no limitations RME / HPI RME / HPI Narrative: 64yom presents to ED for suprapubic pain. Chronic history of bladder stones with multiple ED visits for same complaint. Patient states he is having surgery this Wednesday to remove the stones. He is requesting a shot of Toradol. No other complaints at this time. No fever, nausea/vomiting, flank pain or dysuria reported Related Data Previous Rx's ?Medication ?Instructions ?Recorded hydrocodone 5 mg-acetaminophen 325 1 tab PO BID PRN pa in #10 tabs 09/20/24 mg tablet ibuprofen 800 mg tablet 800 mg PO TID PRN pain #30 t abs 09/20/24 tamsulosin 0.4 mg capsule (Flomax) 0.4 mg PO QDAY #20 caps 10/01/24 acetaminophen 300 mg-codeine 30 mg 1 tab PO Q8H PRN pa in #20 tabs 10/26/24 tablet acetaminophen 300 mg-codeine 30 mg 1 tab PO Q8H PRN pa in #20 tabs 10/26/24 tablet hydrocodone 5 mg-acetaminophen 325 1 tab PO BID PRN pa in #6 tabs 10/29/24 mg tablet ketorolac 10 mg tablet 10 mg PO Q8H #10 tabs hydrocodone 5 mg-acetaminophen 325 1 tab PO BID PRN pa in #14 tabs 11/09/24 mg tablet acetaminophen 300 mg-codeine 30 mg 1 tab PO Q8H PRN pa in #20 tabs 11/11/24 tablet ibuprofen 600 mg tablet 600 mg PO Q6H PRN pain #30 t abs 11/11/24 acetaminophen 300 mg-codeine 30 mg 1 tab PO Q8H PRN pa in #20 tabs 12/14/24 tablet tamsulosin 0.4 mg capsule (Flomax) 0.4 mg PO QDAY #20 caps 12/14/24 ketorolac 10 mg tablet 10 mg PO Q6H PRN pain #30 ta bs 12/18/24 Allergies Allergy/AdvReac Type Severity Reaction Status Date / Time No Known Allergies Allergy Verified 12/18/24 20:23 Review of Systems Review of Systems Systems Reviewed: All systems reviewed, normal except as documented Constitutional Constitutional: Denies chills and Denies fever(s) Gastrointestinal Gastrointestinal: Reports abdominal pain, Denies nausea and Denies vomiting Genitourinary Genitourinary: Denies dysuria, Denies flank pain and Denies hematuria ED Exam General Limitations: Present no limitations General appearance: Present alert and in no apparent distress Head Head exam: Present atraumatic and normocephalic Eye Eye exam: Present normal appearance, PERRL and EOMI ENT ENT exam: Present normal exam and mucous membranes moist Neck Neck exam: Present normal inspection and full ROM Chest Chest inspection: Present normal inspection and symmetric chest wall rise Respiratory Respiratory exam: Present normal lung sounds bilaterally; Absent respiratory distress Cardiovascular Cardiovascular exam: Present regular rate and normal rhythm Abdominal Exam Abdominal exam: Present soft and tenderness (Suprapubic); Absent distention, guarding or rebound Extremities Exam Extremities exam: Present normal inspection and full ROM Back Exam Back exam: Absent CVA tenderness (R) or CVA tenderness (L) Neurological Exam Neurological exam: Present alert and oriented X3 Psychiatric Psychiatric exam: Present normal affect and normal mood Skin Skin exam: Present warm, dry, intact and normal color Course Quality Measures none Orders Category Date Time Status HYDROcodone*/APAP 7.5/325 [[place] 7.5/325] Med 12/18/24 21:26 Discontinued 1 tab PO X1 ONE Ketorolac Inj [Toradol Inj] Med 12/18/24 21:26 Discontinued 30 mg IM X1 ONE Vital Signs Vital signs: Vital Signs Temperature 98.1 F 12/18/24 20:21 Pulse Rate 77 12/18/24 20:21 Respiratory Rate 18 12/18/24 20:21 Blood Pressure 135/77 H 12/18/24 20:21 Pulse Oximetry (%) 100 12/18/24 20:21 Oxygen Delivery Method Room Air 12/18/24 20:21 Urogenital - Male MDM Narrative MDM Narrative:: 64yom presents to ED for suprapubic pain. Chronic history of bladder stones with multiple ED visits for same complaint. Patient states he is having surgery this Wednesday to remove the stones. He is requesting a shot of Toradol. No other complaints at this time. No fever, nausea/vomiting, flank pain or dysuria reported Patient eloped after pain medication, prior to receiving discharge paperwork Patient data External records reviewed:: [facility] previous records (12/14/2024 ED visit for mild pelvic pain) Clinical information provided by:: patient Social determinants that could affect healthcare access:: other (specify) (Poor access to healthcare) Patient has the following chronic illnesses:: Bladder stones How is presenting disease/condition affected by chronic disease/condition?: caused by Evaluation data The following diagnostics were reviewed and interpreted by me:: other (specify) (None) Lab and/or radiology exams considered but not ordered:: UA: Denies dysuria or hematuria Interpretation Summary: None Medications / Prescriptions Medications or Prescriptions considered but not ordered:: No antibiotics recommended at this time Medication administrations:: Medication Administration History Discontinued Medications Hydrocodone Bitart/Acetaminophen (Hydrocodone/Apap 7.5/325 Tablet) 1 tab PO X1 ONE Stop: 12/18/24 21:27 Last Admin: 12/18/24 21:41 Dose: 1 tab Documented By: PEPE Ketorolac Tromethamine (Ketorolac Inj 30 Mg/Ml Vial) 30 mg IM X1 ONE Stop: 12/18/24 21:27 Last Admin: 12/18/24 21:41 Dose: 30 mg Documented By: PEPE Above medications administered in ED Consultations Consultation(s) initiated? (list below): No Diagnosis Urogenital Male Differential Diagnosis: urinary tract infection, urethritis, prostatitis, acute retention of urine and other (Bladder pain) Most likely diagnosis given after review of the tests above:: Bladder pain/stones Admission Indicated Admission indicated?: not indicated Admission Request Was there a request for admission?: No Disposition Plan Disposition Plan: Discharge Discharge Attestation Discharge Attestation: The patient and all family members were given an opportunity to ask questions and understood the discharge instructions. Discharge instructions specifically effects, indications for sooner follow up or return to the emergency department, and the expected course of current diagnosis. Patient condition: Stable Discharge Plan Plan Patient Disposition: Elopement Patient condition on transfer: Stable Prescriptions/Referrals Prescriptions/Med Rec: New ketorolac 10 mg tablet 10 mg PO Q6H PRN (Reason: pain) Qty: 30 0RF Rx Instructions: maximum total duration of 5 days from all oral, intranasal, or parenteral formulations No Action tamsulosin [Flomax] 0.4 mg capsule 0.4 mg PO QDAY Qty: 20 0RF acetaminophen-codeine 300-30 mg tablet 1 tab PO Q8H PRN (Reason: pain) Qty: 20 0RF acetaminophen-codeine 300-30 mg tablet 1 tab PO Q8H PRN (Reason: pain) Qty: 20 0RF hydrocodone-acetaminophen 5-325 mg tablet 1 tab PO BID MDD 10 PRN (Reason: pain) Qty: 14 0RF ibuprofen 600 mg tablet 600 mg PO Q6H PRN (Reason: pain) Qty: 30 0RF acetaminophen-codeine 300-30 mg tablet 1 tab PO Q8H PRN (Reason: pain) Qty: 20 0RF ibuprofen 800 mg tablet 800 mg PO TID PRN (Reason: pain) Qty: 30 0RF hydrocodone-acetaminophen 5-325 mg tablet 1 tab PO BID MDD 10 PRN (Reason: pain) Qty: 10 0RF hydrocodone-acetaminophen 5-325 mg tablet 1 tab PO BID MDD 10mg PRN (Reason: pain) Qty: 6 0RF ketorolac 10 mg tablet 10 mg PO Q8H Qty: 10 0RF Rx Instructions: maximum total duration of 5 days from all oral, intranasal, or parenteral formulations acetaminophen-codeine 300-30 mg tablet 1 tab PO Q8H PRN (Reason: pain) Qty: 20 0RF tamsulosin [Flomax] 0.4 mg capsule 0.4 mg PO QDAY Qty: 20 0RF Problem List Clinical Impression: Bladder pain, History of bladder stone Patient/Caregiver Discharge Instructions Print Language: Somali PA/SOFTWARE SYSTEMS ARCHITECT Supervising Physician PA/SOFTWARE SYSTEMS ARCHITECT Supervising Physician: Juventino
[2024-12-18] MEDS: KETOROLAC INJ 30 MG/ML VIAL IM (21:41)
[2024-12-18] MEDS: HYDROcodone/APAP 7.5/325 TABLET 1 TAB PO (21:41)
--- NOTE | 2024-12-18 21:50 | PC.NURSE ---
PT TOOK OFF AFTER GETTING PAIN MED.
== END 2024-12-18 21:51 | disposition left against medical advice (07) ==
LOC: SERX 22:12
PROVIDERS: Emergency Provider Emergency Medicine; PCP Family Medicine
DX: R10.2 Pelvic and perineal pain (principal); Z87.442 Personal history of urinary calculi; Z53.29 Procedure and treatment not carried out because of patient's decision for other reasons
CPT/HCPCS: 96372; 99283; J1885; A9270

== ENCOUNTER 2024-12-19 19:55 | Emergency (ER) | payer MEDICAID, SELFPAY ==
[2024-12-19 20:08] VITALS: BP 153/74; PULSE 94; RESP 18; TEMP 36.6; O2SAT 98
--- NOTE | 2024-12-19 20:16 | EDNOTE_ITS ---
ED Male Genitalurinary RME/HPI General Chief complaint: General Adult/Misc Complain Stated complaint: PENILE PAIN Time Seen by Provider: 12/19/24 20:06 Arrival date/time: 12/19/24 19:55 64M with history of BPH and bladder/kidney stones presents to ED for pain meds his chronic dysuria/bladder stones. Apparently, upcoming surgery. Limitations: no limitations Related Data Previous Rx's ?Medication ?Instructions ?Recorded hydrocodone 5 mg-acetaminophen 325 1 tab PO BID PRN pa in #10 tabs 09/20/ mg tablet ibuprofen 800 mg tablet 800 mg PO TID PRN pain #30 t abs 09/20/24 tamsulosin 0.4 mg capsule (Flomax) 0.4 mg PO QDAY #20 caps 10/01/24 acetaminophen 300 mg-codeine 30 mg 1 tab PO Q8H PRN pa in #20 tabs 10/26/24 tablet acetaminophen 300 mg-codeine 30 mg 1 tab PO Q8H PRN pa in #20 tabs 10/26/24 tablet hydrocodone 5 mg-acetaminophen 325 1 tab PO BID PRN pa in #6 tabs 10/29/24 mg tablet ketorolac 10 mg tablet 10 mg PO Q8H #10 tabs hydrocodone 5 mg-acetaminophen 325 1 tab PO BID PRN pa in #14 tabs 11/09/24 mg tablet acetaminophen 300 mg-codeine 30 mg 1 tab PO Q8H PRN pa in #20 tabs 11/11/24 tablet ibuprofen 600 mg tablet 600 mg PO Q6H PRN pain #30 t abs 11/11/24 acetaminophen 300 mg-codeine 30 mg 1 tab PO Q8H PRN pa in #20 tabs 12/14/24 tablet tamsulosin 0.4 mg capsule (Flomax) 0.4 mg PO QDAY #20 caps 12/14/24 ketorolac 10 mg tablet 10 mg PO Q6H PRN pain #30 ta bs 12/18/24 Allergies Allergy/AdvReac Type Severity Reaction Status Date / Time No Known Allergies Allergy Verified 12/19/24 19:56 Review of Systems Review of Systems Systems Reviewed: All systems reviewed, normal except as documented Musculoskeletal Musculoskeletal: Reports as per HPI and Reports arthralgias Past Medical History Past Medical History NEUROLOGIC: Negative Neurological Disorders or Seizures CARDIAC: Negative Cardiac Disorders or Congestive Heart Failure RESPIRATORY: Negative Chronic Obstructive Pulmonary Disease (COPD) or Asthma GENITOURINARY: Positive Genitourinary Disorders, Kidney Stones and Benign Prostatic Hyperplasia; Negative Renal Disease MUSCULOSKELETAL: Positive Musculoskeletal Disorders and Degenerative Joint Disease ENDOCRINE: Negative Diabetes Mellitus Type 1 or Diabetes Mellitus Type 2 HEMATOLOGIC: Negative Sickle Cell Disease OTHER HISTORY: Negative Blood Transfusions, Blood Transfusion Reaction or Anesthesia Reactions Social History SMOKING STATUS: Current every day smoker SUBSTANCE USE: does not use ED Exam General Limitations: Present no limitations General appearance: Present alert and in no apparent distress Head Head exam: Present atraumatic Neck Neck exam: Present normal inspection, full ROM and trachea midline Chest Chest inspection: Present normal inspection and symmetric chest wall rise Neurological Exam Neurological exam: Present alert and oriented X3 Psychiatric Psychiatric exam: Present normal affect and normal mood Skin Skin exam: Present warm, dry, intact and normal color Course Quality Measures none Orders Category Date Time Status Ketorolac Inj [Toradol Inj] Med 12/19/24 20:13 Discontinued 60 mg IM X1 ONE Vital Signs Vital signs: Vital Signs Temperature 97.8 F 12/19/24 20:08 Pulse Rate 94 12/19/24 20:08 Respiratory Rate 18 12/19/24 20:08 Blood Pressure 153/74 H 12/19/24 20:08 Pulse Oximetry (%) 98 12/19/24 20:08 Oxygen Delivery Method Room Air 12/19/24 20:08 O2 at 98% on RA and WNLs Urogenital - Male MDM Narrative MDM Narrative:: 64M with history of BPH and bladder/kidney stones presents to ED for pain meds his chronic dysuria/bladder stones. Apparently, upcoming surgery. Physical exam reveals uncomfortable appearing male. Patient is afebrile and alert. Meds given. Patient data External records reviewed:: [facility] previous records Clinical information provided by:: patient Social determinants that could affect healthcare access:: none Patient has the following chronic illnesses:: BPH and bladder/kidney stones How is presenting disease/condition affected by chronic disease/condition?: caused by Evaluation data The following diagnostics were reviewed and interpreted by me:: other (specify) (none) Lab and/or radiology exams considered but not ordered:: not ordered Interpretation Summary: n/a Medications / Prescriptions Medications or Prescriptions considered but not ordered:: ordered Medication administrations:: Medication Administration History Discontinued Medications Ketorolac Tromethamine (Ketorolac Inj 60 Mg/2 Ml Vial) 60 mg IM X1 ONE Stop: 12/19/24 20:14 above Consultations Consultation(s) initiated? (list below): No Diagnosis Urogenital Male Differential Diagnosis: urinary tract infection, priapism, urethritis, epididymitis, genital herpes simplex, prostatitis, acute retention of urine, inguinal hernia and other (bladder stones) Most likely diagnosis given after review of the tests above:: bladder stones Admission Indicated Admission indicated?: not indicated Admission Request Was there a request for admission?: No Disposition Plan Disposition Plan: Discharge Discharge Attestation Discharge Attestation: The patient and all family members were given an opportunity to ask questions and understood the discharge instructions. Discharge instructions specifically effects, indications for sooner follow up or return to the emergency department, and the expected course of current diagnosis. Patient condition: Stable Discharge Plan Plan Patient Disposition: HOME (Self Care) Discharge Disposition comment: Stable Prescriptions/Referrals Prescriptions/Med Rec: No Action tamsulosin [Flomax] 0.4 mg capsule 0.4 mg PO QDAY Qty: 20 0RF acetaminophen-codeine 300-30 mg tablet 1 tab PO Q8H PRN (Reason: pain) Qty: 20 0RF acetaminophen-codeine 300-30 mg tablet 1 tab PO Q8H PRN (Reason: pain) Qty: 20 0RF hydrocodone-acetaminophen 5-325 mg tablet 1 tab PO BID MDD 10 PRN (Reason: pain) Qty: 14 0RF ibuprofen 600 mg tablet 600 mg PO Q6H PRN (Reason: pain) Qty: 30 0RF acetaminophen-codeine 300-30 mg tablet 1 tab PO Q8H PRN (Reason: pain) Qty: 20 0RF ibuprofen 800 mg tablet 800 mg PO TID PRN (Reason: pain) Qty: 30 0RF hydrocodone-acetaminophen 5-325 mg tablet 1 tab PO BID MDD 10 PRN (Reason: pain) Qty: 10 0RF hydrocodone-acetaminophen 5-325 mg tablet 1 tab PO BID MDD 10mg PRN (Reason: pain) Qty: 6 0RF ketorolac 10 mg tablet 10 mg PO Q8H Qty: 10 0RF Rx Instructions: maximum total duration of 5 days from all oral, intranasal, or parenteral formulations acetaminophen-codeine 300-30 mg tablet 1 tab PO Q8H PRN (Reason: pain) Qty: 20 0RF tamsulosin [Flomax] 0.4 mg capsule 0.4 mg PO QDAY Qty: 20 0RF ketorolac 10 mg tablet 10 mg PO Q6H PRN (Reason: pain) Qty: 30 0RF Rx Instructions: maximum total duration of 5 days from all oral, intranasal, or parenteral formulations Referrals: Parminder Lyles MD [Primary Care Provider, Family Practice] - In 1 week Problem List Clinical Impression: Bladder stone Patient/Caregiver Discharge Instructions Additional Instructions: Please follow-up with PCP within 24-48 hours and return immediately if symptoms worsen. Good luck on Wednesday. Make sure to go. Print Language: Kenyan Stand Alone Forms: Patient Portal Info Letter ALPHONSO/CECILIA Supervising Physician ALPHONSO/CECILIA Supervising Physician: Dr. Jauregui
[2024-12-19] MEDS: KETOROLAC INJ 60 MG/2 ML VIAL IM (20:22)
== END 2024-12-19 20:25 | disposition home or self-care (01) ==
PROVIDERS: Emergency Provider Emergency Medicine; PCP Family Medicine
DX: N21.0 Calculus in bladder (principal); N40.0 Benign prostatic hyperplasia without lower urinary tract symptoms
CPT/HCPCS: 96372; 99282; J1885

== ENCOUNTER 2024-12-20 20:42 | Emergency (ER) | payer MEDICAID, SELFPAY ==
[2024-12-20 20:43] VITALS: BMI 22.8
[2024-12-20 21:32] VITALS: BP 122/70; PULSE 87; RESP 20; TEMP 37; O2SAT 99
--- NOTE | 2024-12-20 21:45 | EDNOTE_ITS ---
ED Male Genitalurinary RME/HPI General Chief complaint: General Adult/Misc Complain Stated complaint: SAINI CATH PENIS PAIN BLADDER PAIN Time Seen by Provider: 12/20/24 21:35 Arrival date/time: 12/20/24 20:42 64M with history of BPH and bladder/kidney stones presents to ED for pain meds his chronic dysuria/bladder stones. Apparently, upcoming surgery. Limitations: no limitations Related Data Previous Rx's ?Medication ?Instructions ?Recorded hydrocodone 5 mg-acetaminophen 325 1 tab PO BID PRN pa in #10 tabs 09/20/ mg tablet ibuprofen 800 mg tablet 800 mg PO TID PRN pain #30 t abs 09/20/24 tamsulosin 0.4 mg capsule (Flomax) 0.4 mg PO QDAY #20 caps 10/01/24 acetaminophen 300 mg-codeine 30 mg 1 tab PO Q8H PRN pa in #20 tabs 10/26/24 tablet acetaminophen 300 mg-codeine 30 mg 1 tab PO Q8H PRN pa in #20 tabs 10/26/24 tablet hydrocodone 5 mg-acetaminophen 325 1 tab PO BID PRN pa in #6 tabs 10/29/24 mg tablet ketorolac 10 mg tablet 10 mg PO Q8H #10 tabs hydrocodone 5 mg-acetaminophen 325 1 tab PO BID PRN pa in #14 tabs 11/09/24 mg tablet acetaminophen 300 mg-codeine 30 mg 1 tab PO Q8H PRN pa in #20 tabs 11/11/24 tablet ibuprofen 600 mg tablet 600 mg PO Q6H PRN pain #30 t abs 11/11/24 acetaminophen 300 mg-codeine 30 mg 1 tab PO Q8H PRN pa in #20 tabs 12/14/24 tablet tamsulosin 0.4 mg capsule (Flomax) 0.4 mg PO QDAY #20 caps 12/14/24 ketorolac 10 mg tablet 10 mg PO Q6H PRN pain #30 ta bs 12/18/24 Allergies Allergy/AdvReac Type Severity Reaction Status Date / Time No Known Allergies Allergy Verified 12/20/24 20:45 Review of Systems Review of Systems Systems Reviewed: All systems reviewed, normal except as documented Genitourinary Genitourinary: Reports as per HPI and Reports flank pain Past Medical History Past Medical History NEUROLOGIC: Negative Neurological Disorders or Seizures CARDIAC: Negative Cardiac Disorders or Congestive Heart Failure RESPIRATORY: Negative Chronic Obstructive Pulmonary Disease (COPD) or Asthma GENITOURINARY: Positive Genitourinary Disorders, Kidney Stones and Benign Prostatic Hyperplasia; Negative Renal Disease MUSCULOSKELETAL: Positive Musculoskeletal Disorders and Degenerative Joint Disease ENDOCRINE: Negative Diabetes Mellitus Type 1 or Diabetes Mellitus Type 2 HEMATOLOGIC: Negative Sickle Cell Disease OTHER HISTORY: Negative Blood Transfusions, Blood Transfusion Reaction or Anesthesia Reactions Social History SMOKING STATUS: Current every day smoker SUBSTANCE USE: does not use ED Exam General Limitations: Present no limitations General appearance: Present alert and in no apparent distress Head Head exam: Present atraumatic Neck Neck exam: Present normal inspection, full ROM and trachea midline Chest Chest inspection: Present normal inspection and symmetric chest wall rise Extremities Exam Extremities exam: Present normal inspection and full ROM Back Exam Back exam: Present normal inspection and full ROM Neurological Exam Neurological exam: Present alert and oriented X3 Psychiatric Psychiatric exam: Present normal affect and normal mood Skin Skin exam: Present warm, dry, intact and normal color Course Quality Measures none Orders Category Date Time Status Ketorolac Inj [Toradol Inj] Med 12/20/24 21:35 Discontinued 60 mg IM X1 ONE Vital Signs Vital signs: Vital Signs Temperature 98.6 F 12/20/24 21:32 Pulse Rate 87 12/20/24 21:32 Respiratory Rate 20 12/20/24 21:32 Blood Pressure 122/70 12/20/24 21:32 Pulse Oximetry (%) 99 12/20/24 21:32 Oxygen Delivery Method Room Air 12/20/24 21:32 O2 at 99% on RA and WNLs Urogenital - Male MDM Narrative MDM Narrative:: 64M with history of BPH and bladder/kidney stones presents to ED for pain meds his chronic dysuria/bladder stones. Apparently, upcoming surgery. Physical exam reveals uncomfortable appearing male. Patient is afebrile and alert. Meds given. Patient data External records reviewed:: [facility] previous records Clinical information provided by:: patient Social determinants that could affect healthcare access:: none Patient has the following chronic illnesses:: BPH and bladder/kidney stones How is presenting disease/condition affected by chronic disease/condition?: caused by Evaluation data The following diagnostics were reviewed and interpreted by me:: other (specify) (none) Lab and/or radiology exams considered but not ordered:: not ordered Interpretation Summary: n/a Medications / Prescriptions Medications or Prescriptions considered but not ordered:: ordered Medication administrations:: Medication Administration History Discontinued Medications Ketorolac Tromethamine (Ketorolac Inj 60 Mg/2 Ml Vial) 60 mg IM X1 ONE Stop: 12/20/24 21:36 above Consultations Consultation(s) initiated? (list below): No Diagnosis Urogenital Male Differential Diagnosis: urinary tract infection, priapism, urethritis, epididymitis, genital herpes simplex, prostatitis, acute retention of urine, inguinal hernia and other (bladder pain) Most likely diagnosis given after review of the tests above:: bladder pain Admission Indicated Admission indicated?: not indicated Admission Request Was there a request for admission?: No Disposition Plan Disposition Plan: Discharge Discharge Attestation Discharge Attestation: The patient and all family members were given an opportunity to ask questions and understood the discharge instructions. Discharge instructions specifically effects, indications for sooner follow up or return to the emergency department, and the expected course of current diagnosis. Patient condition: Stable Discharge Plan Plan Patient Disposition: HOME (Self Care) Discharge Disposition comment: Stable Prescriptions/Referrals Prescriptions/Med Rec: No Action tamsulosin [Flomax] 0.4 mg capsule 0.4 mg PO QDAY Qty: 20 0RF acetaminophen-codeine 300-30 mg tablet 1 tab PO Q8H PRN (Reason: pain) Qty: 20 0RF acetaminophen-codeine 300-30 mg tablet 1 tab PO Q8H PRN (Reason: pain) Qty: 20 0RF hydrocodone-acetaminophen 5-325 mg tablet 1 tab PO BID MDD 10 PRN (Reason: pain) Qty: 14 0RF ibuprofen 600 mg tablet 600 mg PO Q6H PRN (Reason: pain) Qty: 30 0RF acetaminophen-codeine 300-30 mg tablet 1 tab PO Q8H PRN (Reason: pain) Qty: 20 0RF ibuprofen 800 mg tablet 800 mg PO TID PRN (Reason: pain) Qty: 30 0RF hydrocodone-acetaminophen 5-325 mg tablet 1 tab PO BID MDD 10 PRN (Reason: pain) Qty: 10 0RF hydrocodone-acetaminophen 5-325 mg tablet 1 tab PO BID MDD 10mg PRN (Reason: pain) Qty: 6 0RF ketorolac 10 mg tablet 10 mg PO Q8H Qty: 10 0RF Rx Instructions: maximum total duration of 5 days from all oral, intranasal, or parenteral formulations acetaminophen-codeine 300-30 mg tablet 1 tab PO Q8H PRN (Reason: pain) Qty: 20 0RF tamsulosin [Flomax] 0.4 mg capsule 0.4 mg PO QDAY Qty: 20 0RF ketorolac 10 mg tablet 10 mg PO Q6H PRN (Reason: pain) Qty: 30 0RF Rx Instructions: maximum total duration of 5 days from all oral, intranasal, or parenteral formulations Problem List Clinical Impression: Bladder pain Patient/Caregiver Discharge Instructions Additional Instructions: Please follow-up with PCP within 24-48 hours and return immediately if symptoms worsen. Print Language: Turkmen Stand Alone Forms: Patient Portal Info Letter ALPHONSO/CECILIA Supervising Physician ALPHONSO/CECILIA Supervising Physician: Dr. Jauregui
[2024-12-20] MEDS: KETOROLAC INJ 60 MG/2 ML VIAL IM (21:48)
== END 2024-12-20 22:43 | disposition home or self-care (01) ==
LOC: SERX 21:51
PROVIDERS: Emergency Provider Emergency Medicine; PCP Family Medicine
DX: R39.89 Other symptoms and signs involving the genitourinary system (principal); N40.0 Benign prostatic hyperplasia without lower urinary tract symptoms
CPT/HCPCS: 96372; 99282; J1885

== ENCOUNTER 2024-12-21 20:03 | Emergency (ER) | payer MEDICAID, SELFPAY ==
[2024-12-21 20:04] VITALS: BMI 22.8
[2024-12-21 21:19] VITALS: BP 146/74; PULSE 96; RESP 17; TEMP 36.9; O2SAT 100
--- NOTE | 2024-12-21 21:28 | EDNOTE_ITS ---
ED Male Genitalurinary RME/HPI General Chief complaint: Urogenital-Male Stated complaint: A LOT OF PAIN DOWN THERE Time Seen by Provider: 12/21/24 21:23 Arrival date/time: 12/21/24 20:03 64M with history of BPH and bladder/kidney stones presents to ED for pain meds his chronic dysuria/bladder stones. Apparently, upcoming surgery. Limitations: no limitations Related Data Previous Rx's ?Medication ?Instructions ?Recorded hydrocodone 5 mg-acetaminophen 325 1 tab PO BID PRN pa in #10 tabs 09/20/24 mg tablet ibuprofen 800 mg tablet 800 mg PO TID PRN pain #30 t abs 09/20/24 tamsulosin 0.4 mg capsule (Flomax) 0.4 mg PO QDAY #20 caps 10/01/24 acetaminophen 300 mg-codeine 30 mg 1 tab PO Q8H PRN pa in #20 tabs 10/26/24 tablet acetaminophen 300 mg-codeine 30 mg 1 tab PO Q8H PRN pa in #20 tabs 10/26/24 tablet hydrocodone 5 mg-acetaminophen 325 1 tab PO BID PRN pa in #6 tabs 10/29/24 mg tablet ketorolac 10 mg tablet 10 mg PO Q8H #10 tabs hydrocodone 5 mg-acetaminophen 325 1 tab PO BID PRN pa in #14 tabs 11/09/24 mg tablet acetaminophen 300 mg-codeine 30 mg 1 tab PO Q8H PRN pa in #20 tabs 11/11/24 tablet ibuprofen 600 mg tablet 600 mg PO Q6H PRN pain #30 t abs 11/11/24 acetaminophen 300 mg-codeine 30 mg 1 tab PO Q8H PRN pa in #20 tabs 12/14/24 tablet tamsulosin 0.4 mg capsule (Flomax) 0.4 mg PO QDAY #20 caps 12/14/24 ketorolac 10 mg tablet 10 mg PO Q6H PRN pain #30 ta bs 12/18/24 Allergies Allergy/AdvReac Type Severity Reaction Status Date / Time No Known Allergies Allergy Verified 12/21/24 20:04 Review of Systems Review of Systems Systems Reviewed: All systems reviewed, normal except as documented Genitourinary Genitourinary: Reports as per HPI and Reports flank pain Past Medical History Past Medical History NEUROLOGIC: Negative Neurological Disorders or Seizures CARDIAC: Negative Cardiac Disorders or Congestive Heart Failure RESPIRATORY: Negative Chronic Obstructive Pulmonary Disease (COPD) or Asthma GENITOURINARY: Positive Genitourinary Disorders, Kidney Stones and Benign Prostatic Hyperplasia; Negative Renal Disease MUSCULOSKELETAL: Positive Musculoskeletal Disorders and Degenerative Joint Disease ENDOCRINE: Negative Diabetes Mellitus Type 1 or Diabetes Mellitus Type 2 HEMATOLOGIC: Negative Sickle Cell Disease OTHER HISTORY: Negative Blood Transfusions, Blood Transfusion Reaction or Anesthesia Reactions Social History SMOKING STATUS: Current every day smoker SUBSTANCE USE: does not use ED Exam General Limitations: Present no limitations General appearance: Present alert and in no apparent distress Head Head exam: Present atraumatic Neck Neck exam: Present normal inspection, full ROM and trachea midline Chest Chest inspection: Present normal inspection and symmetric chest wall rise Neurological Exam Neurological exam: Present alert and oriented X3 Psychiatric Psychiatric exam: Present normal affect and normal mood Skin Skin exam: Present warm, dry, intact and normal color Course Quality Measures none Orders Category Date Time Status Ketorolac Inj [Toradol Inj] Med 12/21/24 21:24 Discontinued 60 mg IM X1 ONE Vital Signs Vital signs: Vital Signs Temperature 98.4 F 12/21/24 21:19 Pulse Rate 96 12/21/24 21:19 Respiratory Rate 17 12/21/24 21:19 Blood Pressure 146/74 H 12/21/24 21:19 Pulse Oximetry (%) 100 12/21/24 21:19 Oxygen Delivery Method Room Air 12/21/24 21:19 O2 at 100% on RA and WNLs Urogenital - Male MDM Narrative MDM Narrative:: 64M with history of BPH and bladder/kidney stones presents to ED for pain meds his chronic dysuria/bladder stones. Apparently, upcoming surgery. Physical exam reveals uncomfortable appearing male. Patient is afebrile and alert. Meds given. Patient data External records reviewed:: [facility] previous records Clinical information provided by:: patient Social determinants that could affect healthcare access:: none Patient has the following chronic illnesses:: BPH and bladder/kidney stones How is presenting disease/condition affected by chronic disease/condition?: caused by Evaluation data The following diagnostics were reviewed and interpreted by me:: other (specify) (none) Lab and/or radiology exams considered but not ordered:: not ordered Interpretation Summary: n/a Medications / Prescriptions Medications or Prescriptions considered but not ordered:: ordered Medication administrations:: Medication Administration History Discontinued Medications Ketorolac Tromethamine (Ketorolac Inj 60 Mg/2 Ml Vial) 60 mg IM X1 ONE Stop: 12/21/24 21:25 above Consultations Consultation(s) initiated? (list below): No Diagnosis Urogenital Male Differential Diagnosis: urinary tract infection, priapism, urethritis, epididymitis, genital herpes simplex, prostatitis, acute retention of urine and inguinal hernia Most likely diagnosis given after review of the tests above:: bladder stone Admission Indicated Admission indicated?: not indicated Admission Request Was there a request for admission?: No Disposition Plan Disposition Plan: Discharge Discharge Attestation Discharge Attestation: The patient and all family members were given an opportunity to ask questions and understood the discharge instructions. Discharge instructions specifically effects, indications for sooner follow up or return to the emergency department, and the expected course of current diagnosis. Patient condition: Stable Discharge Plan Plan Patient Disposition: HOME (Self Care) Discharge Disposition comment: Stable Prescriptions/Referrals Prescriptions/Med Rec: No Action tamsulosin [Flomax] 0.4 mg capsule 0.4 mg PO QDAY Qty: 20 0RF acetaminophen-codeine 300-30 mg tablet 1 tab PO Q8H PRN (Reason: pain) Qty: 20 0RF acetaminophen-codeine 300-30 mg tablet 1 tab PO Q8H PRN (Reason: pain) Qty: 20 0RF hydrocodone-acetaminophen 5-325 mg tablet 1 tab PO BID MDD 10 PRN (Reason: pain) Qty: 14 0RF ibuprofen 600 mg tablet 600 mg PO Q6H PRN (Reason: pain) Qty: 30 0RF acetaminophen-codeine 300-30 mg tablet 1 tab PO Q8H PRN (Reason: pain) Qty: 20 0RF ibuprofen 800 mg tablet 800 mg PO TID PRN (Reason: pain) Qty: 30 0RF hydrocodone-acetaminophen 5-325 mg tablet 1 tab PO BID MDD 10 PRN (Reason: pain) Qty: 10 0RF hydrocodone-acetaminophen 5-325 mg tablet 1 tab PO BID MDD 10mg PRN (Reason: pain) Qty: 6 0RF ketorolac 10 mg tablet 10 mg PO Q8H Qty: 10 0RF Rx Instructions: maximum total duration of 5 days from all oral, intranasal, or parenteral formulations acetaminophen-codeine 300-30 mg tablet 1 tab PO Q8H PRN (Reason: pain) Qty: 20 0RF tamsulosin [Flomax] 0.4 mg capsule 0.4 mg PO QDAY Qty: 20 0RF ketorolac 10 mg tablet 10 mg PO Q6H PRN (Reason: pain) Qty: 30 0RF Rx Instructions: maximum total duration of 5 days from all oral, intranasal, or parenteral formulations Referrals: Paula Fernandez MD [Primary Care Provider, Nephrology] - In 1 week Problem List Clinical Impression: Bladder stone Patient/Caregiver Discharge Instructions Additional Instructions: Please follow-up with PCP within 24-48 hours and return immediately if symptoms worsen. Print Language: Maldivian Stand Alone Forms: Patient Portal Info Letter PA/[employer] Supervising Physician ALPHONSO/CECILIA Supervising Physician: Dr. Mcwilliams
[2024-12-21] MEDS: KETOROLAC INJ 60 MG/2 ML VIAL IM (21:39)
== END 2024-12-21 21:41 | disposition home or self-care (01) ==
PROVIDERS: Emergency Provider Emergency Medicine; PCP Internal Medicine
DX: N21.0 Calculus in bladder (principal)
CPT/HCPCS: 96372; 99282; J1885

== ENCOUNTER 2024-12-22 17:23 | Emergency (ER) | payer MEDICAID, SELFPAY ==
[2024-12-22 18:06] VITALS: BP 152/82; PULSE 96; RESP 18; TEMP 36.6; O2SAT 99; BMI 22.8
--- NOTE | 2024-12-22 18:28 | EDNOTE_ITS ---
ED Male Genitalurinary RME/HPI General Chief complaint: Urogenital-Male Stated complaint: Melgar is draining, looks nasty Time Seen by Provider: 12/22/24 18:19 Arrival date/time: 12/22/24 17:23 RME / HPI RME / HPI Narrative: 64-year-old male patient with significant history of bladder stone and kidney stone, came in for pain in the penile area, and bladder area, has been chronic, patient told me that he just went to his urologist in [place] today and scheduled for surgery this coming December 29. Patient denies any other complaint. Patient has no bladder. He had a chronic Melgar catheter and just recently changed. Related Data Previous Rx's ?Medication ?Instructions ?Recorded hydrocodone 5 mg-acetaminophen 325 1 tab PO BID PRN pa in #10 tabs 09/20/24 mg tablet ibuprofen 800 mg tablet 800 mg PO TID PRN pain #30 t abs 09/20/24 tamsulosin 0.4 mg capsule (Flomax) 0.4 mg PO QDAY #20 caps 10/01/24 acetaminophen 300 mg-codeine 30 mg 1 tab PO Q8H PRN pa in #20 tabs 10/26/24 tablet acetaminophen 300 mg-codeine 30 mg 1 tab PO Q8H PRN pa in #20 tabs 10/26/24 tablet hydrocodone 5 mg-acetaminophen 325 1 tab PO BID PRN pa in #6 tabs 10/29/24 mg tablet ketorolac 10 mg tablet 10 mg PO Q8H #10 tabs hydrocodone 5 mg-acetaminophen 325 1 tab PO BID PRN pa in #14 tabs 11/09/24 mg tablet acetaminophen 300 mg-codeine 30 mg 1 tab PO Q8H PRN pa in #20 tabs 11/11/24 tablet ibuprofen 600 mg tablet 600 mg PO Q6H PRN pain #30 t abs 11/11/24 acetaminophen 300 mg-codeine 30 mg 1 tab PO Q8H PRN pa in #20 tabs 12/14/24 tablet tamsulosin 0.4 mg capsule (Flomax) 0.4 mg PO QDAY #20 caps 12/14/24 ketorolac 10 mg tablet 10 mg PO Q6H PRN pain #30 ta bs 12/18/24 Allergies Allergy/AdvReac Type Severity Reaction Status Date / Time No Known Allergies Allergy Verified 12/22/24 17:27 Review of Systems Review of Systems Narrative Review of Systems: Review of system reviewed and within normal limits except mentioned in HPI ED Exam Narrative Physical exam: VITAL SIGNS: Reviewed. GENERAL APPEARANCE: Alert and interactive, follows commands, no acute distress, HEAD AND FACE: Non-traumatic. ENT: PERRL, pink conjunctivitis, eyelid no trauma, Mucous membrane moist. NECK: Supple, nontender, no nuchal rigidity. CHEST: No tenderness, no crepitus, no paradoxical movement, no retractions. LUNGS: Clear, well ventilated, symmetric, no rales, no wheezing, no ronchi, no stridor, good breath sounds bilaterally. HEART: Regular rate, regular rhythm, no murmur, no gallops. ABDOMEN: Soft, positive bowel sounds, nondistended, no guarding, nontender, no rebound, no masses, RECTAL: Deferred. GENITAL: Melgar catheter intact, draining well., Penile tenderness no swelling no redness NEUROLOGICAL: Gross motor function intact sensory function intact, Appropriate for age. MUSCULOSKELETAL: low back nontender, full range of motion. EXTREMITIES: Nontender, full range of motion. SKIN: Color pink, dry, no rash, no lacerations, no abrasions, no contusions. LYMPHATICS: Deferred. Course Quality Measures none Orders Category Date Time Status HYDROcodone*/APAP 5/325 [[place] 5/325] Med 12/22/24 18:27 Discontinued 1 tab PO X1 ONE Ketorolac Inj [Toradol Inj] Med 12/22/24 18:27 Discontinued 30 mg IM X1 ONE Vital Signs Vital signs: Vital Signs Temperature 97.9 F 12/22/24 18:06 Pulse Rate 96 12/22/24 18:06 Respiratory Rate 18 12/22/24 18:06 Blood Pressure 152/82 H 12/22/24 18:06 Pulse Oximetry (%) 99 12/22/24 18:06 Oxygen Delivery Method Room Air 12/22/24 18:06 Urogenital - Male MDM Narrative MDM Narrative:: 64-year-old male patient with significant history of bladder stone and kidney stone, came in for pain in the penile area, and bladder area, has been chronic, patient told me that he just went to his urologist in [place] today and scheduled for surgery this coming December 29. Patient denies any other complaint. Patient has no bladder. He had a chronic Melgar catheter and just recently changed. Patient received Toradol and [place] prior to discharge. Patient was advised to pick and shovel man his prescription of Tylenol with codeine from the last visit which the patient did not pick and shovel man in the pharmacy. Stable for discharge plan. Patient data External records reviewed:: None Clinical information provided by:: patient Social determinants that could affect healthcare access:: none Patient has the following chronic illnesses:: Bladder stone, kidney stones, chronic Melgar, chronic pain How is presenting disease/condition affected by chronic disease/condition?: exacerbated by Evaluation data The following diagnostics were reviewed and interpreted by me:: other (specify) (None) Lab and/or radiology exams considered but not ordered:: None Interpretation Summary: None Medications / Prescriptions Medications or Prescriptions considered but not ordered:: None Medication administrations:: Medication Administration History Discontinued Medications Hydrocodone Bitart/Acetaminophen (Hydrocodone/Apap 5/325 Tablet) 1 tab PO X1 ONE Stop: 12/22/24 18:28 Ketorolac Tromethamine (Ketorolac Inj 60 Mg/2 Ml Vial) 30 mg IM X1 ONE Stop: 12/22/24 18:28 Toradol [place] Consultations Consultation(s) initiated? (list below): No Diagnosis Urogenital Male Differential Diagnosis: other ( penile pain, bladder pain, chronic Melgar) Most likely diagnosis given after review of the tests above:: Bladder pain, penile pain, chronic indwelling Melgar, history of bladder stone Admission Indicated Admission indicated?: not indicated Admission Request Was there a request for admission?: No Disposition Plan Disposition Plan: Discharge Discharge Attestation Discharge Attestation: The patient and all family members were given an opportunity to ask questions and understood the discharge instructions. Discharge instructions specifically effects, indications for sooner follow up or return to the emergency department, and the expected course of current diagnosis. Patient condition: Stable Discharge Plan Plan Patient Disposition: HOME (Self Care) Discharge Disposition comment: Stable Prescriptions/Referrals Prescriptions/Med Rec: No Action tamsulosin [Flomax] 0.4 mg capsule 0.4 mg PO QDAY Qty: 20 0RF acetaminophen-codeine 300-30 mg tablet 1 tab PO Q8H PRN (Reason: pain) Qty: 20 0RF acetaminophen-codeine 300-30 mg tablet 1 tab PO Q8H PRN (Reason: pain) Qty: 20 0RF hydrocodone-acetaminophen 5-325 mg tablet 1 tab PO BID MDD 10 PRN (Reason: pain) Qty: 14 0RF ibuprofen 600 mg tablet 600 mg PO Q6H PRN (Reason: pain) Qty: 30 0RF acetaminophen-codeine 300-30 mg tablet 1 tab PO Q8H PRN (Reason: pain) Qty: 20 0RF ibuprofen 800 mg tablet 800 mg PO TID PRN (Reason: pain) Qty: 30 0RF hydrocodone-acetaminophen 5-325 mg tablet 1 tab PO BID MDD 10 PRN (Reason: pain) Qty: 10 0RF hydrocodone-acetaminophen 5-325 mg tablet 1 tab PO BID MDD 10mg PRN (Reason: pain) Qty: 6 0RF ketorolac 10 mg tablet 10 mg PO Q8H Qty: 10 0RF Rx Instructions: maximum total duration of 5 days from all oral, intranasal, or parenteral formulations acetaminophen-codeine 300-30 mg tablet 1 tab PO Q8H PRN (Reason: pain) Qty: 20 0RF tamsulosin [Flomax] 0.4 mg capsule 0.4 mg PO QDAY Qty: 20 0RF ketorolac 10 mg tablet 10 mg PO Q6H PRN (Reason: pain) Qty: 30 0RF Rx Instructions: maximum total duration of 5 days from all oral, intranasal, or parenteral formulations Referrals: Parminder Lyles MD [Primary Care Provider, Family Practice] - In 1 week Problem List Clinical Impression: Bladder pain, Chronic pain in penis, Chronic indwelling Melgar catheter, History of bladder stone Patient/Caregiver Discharge Instructions Discharge Activity: activity as tolerated Education Materials: ED Chronic Pain Additional Instructions: Thank you for the opportunity for serving you today. You are stable for discharged . You are advised to: Follow-up with your PCP in 1 to 2 days Return to ED for worsening of symptoms Increase oral fluids Please pick and shovel man the Tylenol with codeine that was prescribed to you last week. In your pharmacy Print Language: Emirati Stand Alone Forms: [employer] Award Info., Patient Portal Info Letter PA/[employer] Supervising Physician PA/[employer] Supervising Physician: MD Poppy
[2024-12-22] MEDS: HYDROcodone/APAP 5/325 TABLET 1 TAB PO (19:22)
[2024-12-22] MEDS: KETOROLAC INJ 60 MG/2 ML VIAL 30 MG IM (19:23)
== END 2024-12-22 19:29 | disposition home or self-care (01) ==
PROVIDERS: Emergency Provider Emergency Medicine; PCP Family Medicine
DX: N48.89 Other specified disorders of penis (principal); G89.29 Other chronic pain; Z87.442 Personal history of urinary calculi; Z96.0 Presence of urogenital implants
CPT/HCPCS: 99283; J1885; A9270

== ENCOUNTER 2024-12-23 18:46 | Emergency (ER) | payer MEDICAID, SELFPAY ==
[2024-12-23 18:48] VITALS: BMI 22.8
[2024-12-23 19:03] VITALS: BP 143/75; PULSE 104; RESP 20; TEMP 36.8; O2SAT 97
--- NOTE | 2024-12-23 19:15 | EDNOTE_ITS ---
ED Back Injury Pain RME/HPI General Chief Complaint: Back Pain/Injury Stated Complaint: R FLANK WITH RADIATING TO R GROIN X2 HRS Time Seen by Provider: 12/23/24 19:04 Arrival date/time: 12/23/24 18:46 This is a case of 65-year-old male with history of chronic right flank pain and kidney stone and bladder stone patient have multiple visit here in the emergency room asking only for Toradol injection for his pain patient states that he is seeing urologist in [place] and was scheduled to have a surgery on his kidney stone on December 29, 2024 history reviewed patient was here every day since December 18, 2024 only for Toradol injection patient keeps refusing any imaging and blood test patient have his Melgar catheter inserted which seems functioning well and no leakage patient denies any fever chills abdominal pain nausea vomiting Limitations: no limitations Related Data Previous Rx's ?Medication ?Instructions ?Recorded hydrocodone 5 mg-acetaminophen 325 1 tab PO BID PRN pa in #10 tabs 09/20/24 mg tablet ibuprofen 800 mg tablet 800 mg PO TID PRN pain #30 t abs 09/20/24 tamsulosin 0.4 mg capsule (Flomax) 0.4 mg PO QDAY #20 caps 10/01/24 acetaminophen 300 mg-codeine 30 mg 1 tab PO Q8H PRN pa in #20 tabs 10/26/24 tablet acetaminophen 300 mg-codeine 30 mg 1 tab PO Q8H PRN pa in #20 tabs 10/26/24 tablet hydrocodone 5 mg-acetaminophen 325 1 tab PO BID PRN pa in #6 tabs 10/29/24 mg tablet ketorolac 10 mg tablet 10 mg PO Q8H #10 tabs hydrocodone 5 mg-acetaminophen 325 1 tab PO BID PRN pa in #14 tabs 11/09/24 mg tablet acetaminophen 300 mg-codeine 30 mg 1 tab PO Q8H PRN pa in #20 tabs 11/11/24 tablet ibuprofen 600 mg tablet 600 mg PO Q6H PRN pain #30 t abs 11/11/24 acetaminophen 300 mg-codeine 30 mg 1 tab PO Q8H PRN pa in #20 tabs 12/14/24 tablet tamsulosin 0.4 mg capsule (Flomax) 0.4 mg PO QDAY #20 caps 12/14/24 ketorolac 10 mg tablet 10 mg PO Q6H PRN pain #30 ta bs 12/18/24 Allergies Allergy/AdvReac Type Severity Reaction Status Date / Time No Known Allergies Allergy Verified 12/23/24 18:51 Review of Systems Review of Systems Systems Reviewed: All systems reviewed, normal except as documented Constitutional Constitutional: Reports system reviewed and no additional complaints, except as documented and Reports as per HPI Cardiovascular Cardiovascular: Reports system reviewed and no additional complaints, except as documented and Reports as per HPI Respiratory Respiratory: Reports system reviewed and no additional complaints, except as documented and Reports as per HPI Gastrointestinal Gastrointestinal: Reports system reviewed and no additional complaints, except as documented and Reports as per HPI Genitourinary Genitourinary: Reports system reviewed and no additional complaints, except as documented and Reports as per HPI Musculoskeletal Musculoskeletal: Reports as per HPI Neurologic Neurologic: Reports system reviewed and no additional complaints, except as documented and Reports as per HPI Past Medical History Past Medical History NEUROLOGIC: Negative Neurological Disorders or Seizures CARDIAC: Negative Cardiac Disorders or Congestive Heart Failure RESPIRATORY: Negative Chronic Obstructive Pulmonary Disease (COPD) or Asthma GENITOURINARY: Positive Genitourinary Disorders, Kidney Stones and Benign Prostatic Hyperplasia; Negative Renal Disease MUSCULOSKELETAL: Positive Musculoskeletal Disorders and Degenerative Joint Disease ENDOCRINE: Negative Diabetes Mellitus Type 1 or Diabetes Mellitus Type 2 HEMATOLOGIC: Negative Sickle Cell Disease OTHER HISTORY: Negative Blood Transfusions, Blood Transfusion Reaction or Anesthesia Reactions Social History SMOKING STATUS: Heavy (> 1 pack/day) SUBSTANCE USE: does not use ED Exam General Limitations: Present no limitations General appearance: Present alert, in no apparent distress and other (Patient is awake alert oriented not in distress manipulative nontoxic looking demanding well-hydrated well-nourished) Head Head exam: Present atraumatic, normocephalic and normal inspection Eye Eye exam: Present normal appearance, PERRL and EOMI ENT ENT exam: Present normal exam, normal oropharynx and mucous membranes moist Neck Neck exam: Present normal inspection, full ROM and trachea midline; Absent tenderness, meningismus, lymphadenopathy or thyromegaly Chest Chest inspection: Present normal inspection and symmetric chest wall rise; Absent tenderness Respiratory Respiratory exam: Present normal lung sounds bilaterally; Absent respiratory distress, wheezes, stridor, accessory muscle use or prolonged expiratory phase Cardiovascular Cardiovascular exam: Present regular rate, normal rhythm and normal heart sounds; Absent bradycardia, tachycardia, irregular rhythm, systolic murmur or diastolic murmur Abdominal Exam Abdominal exam: Present soft, normal bowel sounds and other (Noted Melgar catheter intact no leaking no CVA tenderness no bladder distention no tenderness); Absent distention, tenderness, guarding, rebound, rigidity, diminished bowel sounds, hyperactive bowel sounds, hypoactive bowel sounds, organomegaly, psoas sign, obturator sign, Alvarenga's sign, Rovsing's sign, tenderness at McBurney's Point or hernia Extremities Exam Extremities exam: Present normal inspection and full ROM Back Exam Back exam: Present normal inspection and full ROM; Absent tenderness, CVA tenderness (R), CVA tenderness (L), muscle spasm, paraspinal tenderness, vertebral tenderness, sciatic notch tenderness (R), sciatic notch tenderness (L), straight leg raise (R) or straight leg raise (L) Neurological Exam Neurological exam: Present alert, oriented X3, CN II-XII intact, normal gait and reflexes normal; Absent motor sensory deficit Psychiatric Psychiatric exam: Present normal affect, normal mood and other (Banding and manipulative) Skin Skin exam: Present warm, dry, intact and normal color Course Quality Measures none Orders Category Date Time Status Ketorolac Inj [Toradol Inj] Med 12/23/24 19:14 Once 15 mg IM X1 ONE Vital Signs Vital signs: Vital Signs Temperature 98.3 F 12/23/24 19:03 Pulse Rate 104 H 12/23/24 19:03 Respiratory Rate 20 12/23/24 19:03 Blood Pressure 143/75 H 12/23/24 19:03 Pulse Oximetry (%) 97 12/23/24 19:03 Oxygen Delivery Method Room Air 12/23/24 19:03 Oxygen saturation is 97% in room air normal Back Pain / Injury MDM Narrative MDM Narrative:: This is a case of 65-year-old male with history of chronic right flank pain and kidney stone and bladder stone patient have multiple visit here in the emergency room asking only for Toradol injection for his pain patient states that he is seeing urologist in [place] and was scheduled to have a surgery on his kidney stone on December 29, 2024 history reviewed patient was here every day since December 18, 2024 only for Toradol injection patient keeps refusing any imaging and blood test patient have his Melgar catheter inserted which seems functioning well and no leakage patient denies any fever chills abdominal pain nausea vomiting physical examination patient is awake alert oriented not in distress nontoxic looking well-hydrated well-nourished patient is manipulative and demanding persistent treat refusing all blood test and imaging only wanted to have Toradol injection patient abdominal exam is benign nonsurgical no guarding no rebound no rigidity negative psoas negative straight or negative Rovsing's negative McBurney's no Alvarenga sign negative CVA tenderness patient has no generalized tenderness no bladder distention no bladder tenderness Melgar catheter is intact no leaking since patient was refusing all test Toradol was given only 15 mg IM she he was advised to see his urologist tomorrow morning for further evaluation and treatment of chronic right flank pain and for any worsening symptoms he will return in the emergency room immediately or call 911 at the time of exam no signs and symptoms of dehydration sepsis or acute abdomen Patient was discharged with comfortable condition walking with stable gait. Patient verbalized no further complains explained diagnosis and answered patient question. Patient is comfortable with the proposed management plan including the need to follow up with his/her primary care physician and any specialist if applicable Discussed patient for any urgent condition or worsening sx, He/She needed to go to emergency room immediately or call 911. Patient acknowledge the responsibility to follow up as instructed and to monitor her/his symptoms. For any persistence of the symptoms for more than 3-5 days return precaution advised. Discussed the result of the test and was given printed discharge instruction Patient data External records reviewed:: [facility] previous records Clinical information provided by:: patient Social determinants that could affect healthcare access:: none Patient has the following chronic illnesses:: None How is presenting disease/condition affected by chronic disease/condition?: no chronic disease Evaluation data The following diagnostics were reviewed and interpreted by me:: other (specify) (None) Lab and/or radiology exams considered but not ordered:: None Interpretation Summary: None Medications / Prescriptions Medications or Prescriptions considered but not ordered:: Given Medication administrations:: Medication Administration History Ketorolac Tromethamine (Ketorolac Inj 60 Mg/2 Ml Vial) 15 mg IM X1 ONE Stop: 12/23/24 19:15 Given Consultations Consultation(s) initiated? (list below): No Diagnosis Differential diagnosis back pain/injury: other (Kidney stone) Most likely diagnosis given after review of the tests above:: Kidney stone Admission Indicated Admission indicated?: not indicated Explain why admission is indicated or not indicated:: Not indicated Admission Request Was there a request for admission?: No Admission Attestation Admission request attestation: Not indicated Disposition Plan Disposition Plan: Discharge Discharge Attestation Discharge Attestation: The patient and all family members were given an opportunity to ask questions and understood the discharge instructions. Discharge instructions specifically effects, indications for sooner follow up or return to the emergency department, and the expected course of current diagnosis. Patient condition: Stable Discharge Plan Plan Patient Disposition: HOME (Self Care) Patient condition on transfer: Stable Prescriptions/Referrals Prescriptions/Med Rec: No Action tamsulosin [Flomax] 0.4 mg capsule 0.4 mg PO QDAY Qty: 20 0RF acetaminophen-codeine 300-30 mg tablet 1 tab PO Q8H PRN (Reason: pain) Qty: 20 0RF acetaminophen-codeine 300-30 mg tablet 1 tab PO Q8H PRN (Reason: pain) Qty: 20 0RF hydrocodone-acetaminophen 5-325 mg tablet 1 tab PO BID MDD 10 PRN (Reason: pain) Qty: 14 0RF ibuprofen 600 mg tablet 600 mg PO Q6H PRN (Reason: pain) Qty: 30 0RF acetaminophen-codeine 300-30 mg tablet 1 tab PO Q8H PRN (Reason: pain) Qty: 20 0RF ibuprofen 800 mg tablet 800 mg PO TID PRN (Reason: pain) Qty: 30 0RF hydrocodone-acetaminophen 5-325 mg tablet 1 tab PO BID MDD 10 PRN (Reason: pain) Qty: 10 0RF hydrocodone-acetaminophen 5-325 mg tablet 1 tab PO BID MDD 10mg PRN (Reason: pain) Qty: 6 0RF ketorolac 10 mg tablet 10 mg PO Q8H Qty: 10 0RF Rx Instructions: maximum total duration of 5 days from all oral, intranasal, or parenteral formulations acetaminophen-codeine 300-30 mg tablet 1 tab PO Q8H PRN (Reason: pain) Qty: 20 0RF tamsulosin [Flomax] 0.4 mg capsule 0.4 mg PO QDAY Qty: 20 0RF ketorolac 10 mg tablet 10 mg PO Q6H PRN (Reason: pain) Qty: 30 0RF Rx Instructions: maximum total duration of 5 days from all oral, intranasal, or parenteral formulations Problem List Clinical Impression: Right flank pain, Kidney stone, Chronic pain Patient/Caregiver Discharge Instructions Education Materials: Kidney Stones: Your Evaluation, ED Chronic Pain, ED Flank Pain, Uncertain Cause Additional Instructions: Follow-up with your primary care physician in 2 days for reevaluation worsening symptoms or any emergent concern call 911 or go to the nearest emergency room it is very important to call to your urologist tomorrow morning for reevaluation of your chronic right flank pain and for your kidney stone take your medication as directed keep hydrated Print Language: Angolan Stand Alone Forms: Latoya Award Info., Patient Portal Info Letter PA/ANIMAL SITTER Supervising Physician PA/ANIMAL SITTER Supervising Physician: Dr carlos eduardo parson
[2024-12-23] MEDS: KETOROLAC INJ 60 MG/2 ML VIAL 15 MG IM (19:24)
== END 2024-12-23 19:29 | disposition home or self-care (01) ==
LOC: SERX 19:32
PROVIDERS: Emergency Provider Emergency Medicine
DX: N20.0 Calculus of kidney (principal)
CPT/HCPCS: 96372; 99282; J1885

== ENCOUNTER 2024-12-24 11:14 | Emergency (ER) | payer MEDICAID, SELFPAY ==
[2024-12-24 11:30] VITALS: BP 154/89; PULSE 83; RESP 16; TEMP 36.7; O2SAT 98
[2024-12-24] MEDS: ONDANSETRON ODT 4 MG TABRAP PO (12:24)
[2024-12-24] MEDS: KETOROLAC INJ 30 MG/ML VIAL IM (12:24)
--- NOTE | 2024-12-24 12:24 | PD.EDBACK ---
ED Back Injury Pain RME/HPI General Chief Complaint: General Adult/Misc Complain Stated Complaint: NEEDS TURNER CHANGED Time Seen by Provider: 12/24/24 11:28 Arrival date/time: 12/24/24 11:14 This is a case of 65-year-old male with history of chronic right flank pain and bladder stones and kidney stones. Patient have multiple visit here in the emergency room asking only for Toradol injection for his pain patient states that he is seeing urologist in [place] and is scheduled to have a surgery on his kidney stone on January 16, 2025. Patient refusing any imaging and blood test or imaging. patient has his Turner catheter inserted which seems functioning well and no leakage. patient denies any fever chills abdominal pain nausea vomiting Related Data Previous Rx's ?Medication ?Instructions ?Recorded hydrocodone 5 mg-acetaminophen 325 1 tab PO BID PRN pain #10 tabs 09/20/ mg tablet ibuprofen 800 mg tablet 800 mg PO TID PRN pain #30 tabs 09/20/24 tamsulosin 0.4 mg capsule (Flomax) 0.4 mg PO QDAY #20 caps 10/01/24 acetaminophen 300 mg-codeine 30 mg 1 tab PO Q8H PRN pain #20 tabs 10/26/24 tablet acetaminophen 300 mg-codeine 30 mg 1 tab PO Q8H PRN pain #20 tabs 10/26/24 tablet hydrocodone 5 mg-acetaminophen 325 1 tab PO BID PRN pain #6 tabs 10/29/24 mg tablet ketorolac 10 mg tablet 10 mg PO Q8H #10 tabs 11/02/24 hydrocodone 5 mg-acetaminophen 325 1 tab PO BID PRN pain #14 tabs 11/09/24 mg tablet acetaminophen 300 mg-codeine 30 mg 1 tab PO Q8H PRN pain #20 tabs 11/11/24 tablet ibuprofen 600 mg tablet 600 mg PO Q6H PRN pain #30 tabs 11/11/24 acetaminophen 300 mg-codeine 30 mg 1 tab PO Q8H PRN pain #20 tabs 12/14/24 tablet tamsulosin 0.4 mg capsule (Flomax) 0.4 mg PO QDAY #20 caps 12/14/24 ketorolac 10 mg tablet 10 mg PO Q6H PRN pain #30 tabs 12/18/24 hydrocodone 5 mg-acetaminophen 325 1 tab PO BID PRN pain #10 tabs 12/26/25 mg tablet hydrocodone 5 mg-acetaminophen 325 1 tab PO BID PRN pain #10 tabs 12/27/25 mg tablet ciprofloxacin HCl 500 mg tablet 500 mg PO BID #14 tabs 12/28/24 (Cipro) hydrocodone 5 mg-acetaminophen 325 2 tab PO Q8H PRN pain #20 tabs 12/29/25 mg tablet Allergies Allergy/AdvReac Type Severity Reaction Status Date / Time No Known Allergies Allergy Verified 01/09/25 14:41 Review of Systems Review of Systems Systems Reviewed: All systems reviewed, normal except as documented Past Medical History Past Medical History NEUROLOGIC: Negative Neurological Disorders or Seizures CARDIAC: Negative Cardiac Disorders or Congestive Heart Failure RESPIRATORY: Negative Chronic Obstructive Pulmonary Disease (COPD) or Asthma GENITOURINARY: Positive Genitourinary Disorders, Kidney Stones and Benign Prostatic Hyperplasia; Negative Renal Disease MUSCULOSKELETAL: Positive Musculoskeletal Disorders and Degenerative Joint Disease ENDOCRINE: Negative Diabetes Mellitus Type 1 or Diabetes Mellitus Type 2 HEMATOLOGIC: Negative Sickle Cell Disease OTHER HISTORY: Negative Blood Transfusions, Blood Transfusion Reaction or Anesthesia Reactions Social History SMOKING STATUS: Heavy (> 1 pack/day) SUBSTANCE USE: does not use ED Exam Narrative Physical exam: VITAL SIGNS: Reviewed. GENERAL APPEARANCE: Alert and interactive, follows commands, no acute distress HEAD AND FACE: Non-traumatic. ENT: PERRL, conjuctiva pink and clear, eyelid no trauma, Mucous membrane moist. NECK: Supple, nontender, no nuchal rigidity. CHEST: No tenderness, no crepitus, no paradoxical movement, no retractions. LUNGS: breathing even and unlabored HEART: Regular rate, cap refill less than 2 seconds ABDOMEN: Soft, nondistended, no guarding, nontender NEUROLOGICAL: Gross motor function intact sensory function intact, Appropriate for age. MUSCULOSKELETAL: low back nontender, full range of motion. EXTREMITIES: No redness no swelling no skin breakdown on bilateral foot and leg. Distal neurovascular status intact bilateral foot SKIN: Color pink, dry Course Quality Measures none Orders Category Date Time Status HYDROcodone*/APAP 5/325 [[place] 5/325] Med 12/24/24 12:03 Discontinued 1 tab PO X1 ONE Ibuprofen Tab [Motrin Tab] Med 12/24/24 12:03 Discontinued 800 mg PO X1 ONE Ketorolac Inj [Toradol Inj] Med 12/24/24 12:11 Discontinued 30 mg IM X1 ONE Ondansetron Odt [Zofran Odt] Med 12/24/24 12:11 Discontinued 4 mg PO X1 ONE Vital Signs Vital signs: Vital Signs Temperature 98.0 F 12/24/24 11:30 Pulse Rate 83 12/24/24 11:30 Respiratory Rate 16 12/24/24 11:30 Blood Pressure 154/89 H 12/24/24 11:30 Pulse Oximetry (%) 98 12/24/24 11:30 Oxygen Delivery Method Room Air 12/24/24 11:30 Back Pain / Injury MDM Narrative MDM Narrative:: Patient refuses to have his urinary catheter changed. Patient states he just wanted pain medication. Patient refused any blood tests or imaging. Patient states he has surgery scheduled January 16 with a urologist in [place]. follow up with primary provider in 1-2 days. Come back to ED if symptoms change or worsen Dragon dictation: Although this document has been carefully reviewed, there may still be some phonetic and other typographical errors. These errors are purely grammatical due to imperfections in the software program and should not be construed in any way to compromise the substance of the patient's medical care during this visit. Patient data External records reviewed:: [facility] previous records Clinical information provided by:: patient Social determinants that could affect healthcare access:: none Patient has the following chronic illnesses:: nonr How is presenting disease/condition affected by chronic disease/condition?: no chronic disease Evaluation data The following diagnostics were reviewed and interpreted by me:: other (specify) (none ) Lab and/or radiology exams considered but not ordered:: ua, cbc rp Interpretation Summary: see note Medications / Prescriptions Medications or Prescriptions considered but not ordered:: none Medication administrations:: Medication Administration History Discontinued Medications Hydrocodone Bitart/Acetaminophen (Hydrocodone/Apap 5/325 Tablet) 1 tab PO X1 ONE Stop: 12/24/24 12:04 Last Admin: 12/24/24 12:08 Dose: Not Given Documented By: DELMY Non-Admin Reason: Patient Refused Ibuprofen (Ibuprofen Tab 400 Mg Tablet) 800 mg PO X1 ONE Stop: 12/24/24 12:04 Last Admin: 12/24/24 12:08 Dose: Not Given Documented By: DELMY Non-Admin Reason: Patient Refused Ketorolac Tromethamine (Ketorolac Inj 30 Mg/Ml Vial) 30 mg IM X1 ONE Stop: 12/24/24 12:12 Last Admin: 12/24/24 12:24 Dose: 30 mg Documented By: DELMY Ondansetron HCl (Ondansetron Odt 4 Mg Tabrap) 4 mg PO X1 ONE; Protocol Stop: 12/24/24 12:12 Last Admin: 12/24/24 12:24 Dose: 4 mg Documented By: DELMY see mar Consultations Consultation(s) initiated? (list below): No Diagnosis Most likely diagnosis given after review of the tests above:: chronic turner catheter, kidney stone pain Admission Indicated Admission indicated?: not indicated Admission Request Was there a request for admission?: No Disposition Plan Disposition Plan: Discharge Discharge Attestation Discharge Attestation: The patient and all family members were given an opportunity to ask questions and understood the discharge instructions. Discharge instructions specifically effects, indications for sooner follow up or return to the emergency department, and the expected course of current diagnosis. Patient condition: Stable Discharge Plan Plan Patient Disposition: HOME (Self Care) Patient condition on transfer: Stable Prescriptions/Referrals Prescriptions/Med Rec: No Action tamsulosin [Flomax] 0.4 mg capsule 0.4 mg PO QDAY Qty: 20 0RF acetaminophen-codeine 300-30 mg tablet 1 tab PO Q8H PRN (Reason: pain) Qty: 20 0RF acetaminophen-codeine 300-30 mg tablet 1 tab PO Q8H PRN (Reason: pain) Qty: 20 0RF hydrocodone-acetaminophen 5-325 mg tablet 1 tab PO BID MDD 10 PRN (Reason: pain) Qty: 14 0RF ibuprofen 600 mg tablet 600 mg PO Q6H PRN (Reason: pain) Qty: 30 0RF acetaminophen-codeine 300-30 mg tablet 1 tab PO Q8H PRN (Reason: pain) Qty: 20 0RF hydrocodone-acetaminophen 5-325 mg tablet 1 tab PO BID MDD 10 PRN (Reason: pain) Qty: 10 0RF ibuprofen 800 mg tablet 800 mg PO TID PRN (Reason: pain) Qty: 30 0RF hydrocodone-acetaminophen 5-325 mg tablet 1 tab PO BID MDD 10 PRN (Reason: pain) Qty: 10 0RF hydrocodone-acetaminophen 5-325 mg tablet 1 tab PO BID MDD 10mg PRN (Reason: pain) Qty: 6 0RF ketorolac 10 mg tablet 10 mg PO Q8H Qty: 10 0RF Rx Instructions: maximum total duration of 5 days from all oral, intranasal, or parenteral formulations acetaminophen-codeine 300-30 mg tablet 1 tab PO Q8H PRN (Reason: pain) Qty: 20 0RF tamsulosin [Flomax] 0.4 mg capsule 0.4 mg PO QDAY Qty: 20 0RF ketorolac 10 mg tablet 10 mg PO Q6H PRN (Reason: pain) Qty: 30 0RF Rx Instructions: maximum total duration of 5 days from all oral, intranasal, or parenteral formulations hydrocodone-acetaminophen 5-325 mg tablet 1 tab PO BID MDD 10mg PRN (Reason: pain) Qty: 10 0RF ciprofloxacin HCl [Cipro] 500 mg tablet 500 mg PO BID Qty: 14 0RF hydrocodone-acetaminophen 5-325 mg tablet 2 tab PO Q8H MDD 6 PRN (Reason: pain) Qty: 20 0RF Referrals: Parminder Lyles MD [Primary Care Provider, Family Practice] - In 1 week Problem List Clinical Impression: Chronic indwelling Turner catheter Patient/Caregiver Discharge Instructions Discharge Activity: activity as tolerated Education Materials: ED Turner Catheter, Care Additional Instructions: follow up with primary provider in 1-2 days. Come back to ED if symptoms change or worsen follow-up with urologist as scheduled. Print Language: Guamanian Stand Alone Forms: Latoya Award Info., Patient Portal Info Letter PA/CECILIA Supervising Physician PA/PROGRAM REP Supervising Physician: dave
== END 2024-12-24 13:15 | disposition home or self-care (01) ==
PROVIDERS: Emergency Provider Emergency Medicine; PCP Family Medicine
DX: R10.9 Unspecified abdominal pain (principal); Z96.0 Presence of urogenital implants
CPT/HCPCS: 96372; 99283; J1885; Q0162

== ENCOUNTER 2024-12-25 05:05 | Emergency (ER) | payer MEDICAID, SELFPAY ==
[2024-12-25 05:06] VITALS: BMI 22.8
--- NOTE | 2024-12-25 05:43 | PD.EDRME ---
Rapid Medical Screening Exam RME Arrival date/time: 12/25/24 05:05 This is a case of 65-year-old male with history of kidney stone and urinary retention came in in the emergency room due to lower abdominal pain radiating to both flanks patient had Melgar catheter patient have multiple visit here due to pain and asking for Toradol shot patient have surgery on December 29 for kidney stone in [place] Chief Complaint: Urogenital-Male Time Seen by Provider: 12/25/24 05:43
[2024-12-25 05:44] VITALS: BP 147/77; PULSE 82; RESP 17; TEMP 37.2; O2SAT 98
--- NOTE | 2024-12-25 06:21 | PD.EDMALE ---
ED Male Genitalurinary RME/HPI General Chief complaint: Urogenital-Male Stated complaint: PAIN AT SAINI SITE Time Seen by Provider: 12/25/24 05:43 Source: patient Arrival date/time: 12/25/24 05:05 64-year-old male with a history of BPH, and a kidney stone presents to the emergency room with a chief complaint of urethral pain. Mode of arrival: ambulatory Limitations: no limitations RME / HPI RME / HPI Narrative: 12/25/24 05:05 This is a case of 65-year-old male with history of kidney stone and urinary retention came in in the emergency room due to lower abdominal pain radiating to both flanks patient had Saini catheter patient have multiple visit here due to pain and asking for Toradol shot patient have surgery on December 29 for kidney stone in [place] Related Data Previous Rx's ?Medication ?Instructions ?Recorded hydrocodone 5 mg-acetaminophen 325 1 tab PO BID PRN pain #10 tabs 09/20/24 mg tablet ibuprofen 800 mg tablet 800 mg PO TID PRN pain #30 tabs 09/20/24 tamsulosin 0.4 mg capsule (Flomax) 0.4 mg PO QDAY #20 caps 10/01/24 acetaminophen 300 mg-codeine 30 mg 1 tab PO Q8H PRN pain #20 tabs 10/26/24 tablet acetaminophen 300 mg-codeine 30 mg 1 tab PO Q8H PRN pain #20 tabs 10/26/24 tablet hydrocodone 5 mg-acetaminophen 325 1 tab PO BID PRN pain #6 tabs 10/29/24 mg tablet ketorolac 10 mg tablet 10 mg PO Q8H #10 tabs 11/02/24 hydrocodone 5 mg-acetaminophen 325 1 tab PO BID PRN pain #14 tabs 11/09/24 mg tablet acetaminophen 300 mg-codeine 30 mg 1 tab PO Q8H PRN pain #20 tabs 11/11/24 tablet ibuprofen 600 mg tablet 600 mg PO Q6H PRN pain #30 tabs 11/11/24 acetaminophen 300 mg-codeine 30 mg 1 tab PO Q8H PRN pain #20 tabs 12/14/24 tablet tamsulosin 0.4 mg capsule (Flomax) 0.4 mg PO QDAY #20 caps 12/14/24 ketorolac 10 mg tablet 10 mg PO Q6H PRN pain #30 tabs 12/18/24 Allergies Allergy/AdvReac Type Severity Reaction Status Date / Time No Known Allergies Allergy Verified 12/24/24 11:15 Review of Systems Review of Systems Systems Reviewed: All systems reviewed, normal except as documented Constitutional Constitutional: Reports system reviewed and no additional complaints, except as documented, Denies fatigue, Denies fever(s), Denies headache(s) and Denies weakness Eyes Eyes: Reports system reviewed and no additional complaints, except as documented, Denies blurry vision and Denies change in vision ENT Ears, Nose, Mouth, and Throat: Reports system reviewed and no additional complaints, except as documented, Denies otalgia, Denies headache(s), Denies nasal congestion, Denies throat swelling and Denies vertigo Cardiovascular Cardiovascular: Reports system reviewed and no additional complaints, except as documented, Denies chest pain, Denies dyspnea and Denies dyspnea on exertion Respiratory Respiratory: Reports system reviewed and no additional complaints, except as documented, Denies chest congestion, Denies cough, Denies dyspnea, Denies dyspnea on exertion and Denies wheezing Gastrointestinal Gastrointestinal: Reports system reviewed and no additional complaints, except as documented, Denies abdominal pain, Denies cramping, Denies nausea and Denies vomiting Genitourinary Genitourinary: Reports system reviewed and no additional complaints, except as documented, Denies dysuria and Denies hematuria Musculoskeletal Musculoskeletal: Reports system reviewed and no additional complaints, except as documented and Denies back pain Integumentary/Breasts Skin/Breast: Reports system reviewed and no additional complaints, except as documented and Denies wounds Neurologic Neurologic: Reports system reviewed and no additional complaints, except as documented, Denies confusion, Denies headache(s), Denies lack of coordination, Denies vertigo and Denies weakness Psychiatric Psychiatric: Reports system reviewed and no additional complaints, except as documented, Denies anxiety, Denies confusion, Denies depression, Denies paranoia, Denies suicidal ideation and Denies tactile hallucinations Endocrine Endocrine: Reports system reviewed and no additional complaints, except as documented and Denies fatigue Hematologic/Lymphatic Hematologic/Lymphatic: Reports system reviewed and no additional complaints, except as documented and Denies lymphadenopathy Allergic/Immunologic Allergic/Immunologic: Reports system reviewed and no additional complaints, except as documented, Denies throat swelling, Denies urticaria and Denies wheezing ED Exam General Limitations: Present no limitations General appearance: Present alert and in no apparent distress Head Head exam: Present atraumatic Eye Eye exam: Present normal appearance, PERRL and EOMI ENT ENT exam: Present normal exam, normal oropharynx and mucous membranes moist Neck Neck exam: Present normal inspection, full ROM and trachea midline Chest Chest inspection: Present normal inspection and symmetric chest wall rise Respiratory Respiratory exam: Present normal lung sounds bilaterally Cardiovascular Cardiovascular exam: Present regular rate, normal rhythm and normal heart sounds Abdominal Exam Abdominal exam: Present soft and normal bowel sounds Extremities Exam Extremities exam: Present normal inspection and full ROM Back Exam Back exam: Present normal inspection and full ROM Neurological Exam Neurological exam: Present alert, oriented X3 and CN II-XII intact Psychiatric Psychiatric exam: Present normal affect and normal mood Skin Skin exam: Present warm, dry, intact and normal color Course Quality Measures none Orders Category Date Time Status US renal BI Stat Exams 12/25/24 05:43 Stop Req HYDROcodone*/APAP 5/325 [[place] 5/325] Med 12/25/24 06:17 Discontinued 1 tab PO X1 ONE Ketorolac Inj [Toradol Inj] Med 12/25/24 06:17 Discontinued 30 mg IM X1 ONE Vital Signs Vital signs: Vital Signs Temperature 99.0 F 12/25/24 05:44 Pulse Rate 82 12/25/24 05:44 Respiratory Rate 17 12/25/24 05:44 Blood Pressure 147/77 H 12/25/24 05:44 Pulse Oximetry (%) 98 12/25/24 05:44 Oxygen Delivery Method Room Air 12/25/24 05:44 Urogenital - Male MDM Narrative MDM Narrative:: 64-year-old male with a history of BPH, and a kidney stone presents to the emergency room with a chief complaint of urethral pain. Patient is hemodynamically stable and in no apparent distress Physical examination shows pain and tenderness near the urethral site where his Saini catheter hangs from. Patient states he recently had his urinary catheter replaced and that he is just here today for pain medication as he ran out. Patient states he has his BPH surgery scheduled for January 16, 2025. Patient refused any ultrasound any blood work and states he just wants to control his pain. There is no urinary retention. Patient was discharged and educated to follow-up with primary care provider in the next 24 to 48 hours and return to the emergency room for any evidence of worsening signs or symptoms Patient data External records reviewed:: [facility] previous records Clinical information provided by:: patient Social determinants that could affect healthcare access:: none Patient has the following chronic illnesses:: BPH How is presenting disease/condition affected by chronic disease/condition?: exacerbated by Evaluation data The following diagnostics were reviewed and interpreted by me:: lab results and radiology exam(s) Lab and/or radiology exams considered but not ordered:: Labs and radiology exams considered and ordered Interpretation Summary: N/A Medications / Prescriptions Medications or Prescriptions considered but not ordered:: Medication given Medication administrations:: Medication Administration History Discontinued Medications Hydrocodone Bitart/Acetaminophen (Hydrocodone/Apap 5/325 Tablet) 1 tab PO X1 ONE Stop: 12/25/24 06:18 Ketorolac Tromethamine (Ketorolac Inj 60 Mg/2 Ml Vial) 30 mg IM X1 ONE Stop: 12/25/24 06:18 Medication given Consultations Consultation(s) initiated? (list below): No Diagnosis Urogenital Male Differential Diagnosis: urinary tract infection, prostatitis, acute retention of urine and other (Urethral pain) Most likely diagnosis given after review of the tests above:: Urethral pain Admission Indicated Admission indicated?: not indicated Admission Request Was there a request for admission?: No Disposition Plan Disposition Plan: Discharge Discharge Attestation Discharge Attestation: The patient and all family members were given an opportunity to ask questions and understood the discharge instructions. Discharge instructions specifically effects, indications for sooner follow up or return to the emergency department, and the expected course of current diagnosis. Patient condition: Stable Discharge Plan Plan Patient Disposition: HOME (Self Care) Discharge Disposition comment: Stable Prescriptions/Referrals Prescriptions/Med Rec: No Action tamsulosin [Flomax] 0.4 mg capsule 0.4 mg PO QDAY Qty: 20 0RF acetaminophen-codeine 300-30 mg tablet 1 tab PO Q8H PRN (Reason: pain) Qty: 20 0RF acetaminophen-codeine 300-30 mg tablet 1 tab PO Q8H PRN (Reason: pain) Qty: 20 0RF hydrocodone-acetaminophen 5-325 mg tablet 1 tab PO BID MDD 10 PRN (Reason: pain) Qty: 14 0RF ibuprofen 600 mg tablet 600 mg PO Q6H PRN (Reason: pain) Qty: 30 0RF acetaminophen-codeine 300-30 mg tablet 1 tab PO Q8H PRN (Reason: pain) Qty: 20 0RF ibuprofen 800 mg tablet 800 mg PO TID PRN (Reason: pain) Qty: 30 0RF hydrocodone-acetaminophen 5-325 mg tablet 1 tab PO BID MDD 10 PRN (Reason: pain) Qty: 10 0RF hydrocodone-acetaminophen 5-325 mg tablet 1 tab PO BID MDD 10mg PRN (Reason: pain) Qty: 6 0RF ketorolac 10 mg tablet 10 mg PO Q8H Qty: 10 0RF Rx Instructions: maximum total duration of 5 days from all oral, intranasal, or parenteral formulations acetaminophen-codeine 300-30 mg tablet 1 tab PO Q8H PRN (Reason: pain) Qty: 20 0RF tamsulosin [Flomax] 0.4 mg capsule 0.4 mg PO QDAY Qty: 20 0RF ketorolac 10 mg tablet 10 mg PO Q6H PRN (Reason: pain) Qty: 30 0RF Rx Instructions: maximum total duration of 5 days from all oral, intranasal, or parenteral formulations Referrals: Parminder Lyles MD [Primary Care Provider, Family Practice] - In 1 week Problem List Clinical Impression: Urethral pain Patient/Caregiver Discharge Instructions Additional Instructions: Please follow-up with your primary care provider in the next 24 to 48 hours Please follow-up with urology in the next 24 to 48 hours. Please keep your appointment for your surgery on January 16, 2025 For any evidence of worsening signs or symptoms return to the emergency room immediately Print Language: Upper Sorbian Stand Alone Forms: Latoya Award Info., Patient Portal Info Letter ALPHONSO/CECILIA Supervising Physician ALPHONSO/CECILIA Supervising Physician: Dr. Spaulding
[2024-12-25] MEDS: KETOROLAC INJ 60 MG/2 ML VIAL 30 MG IM (06:34)
[2024-12-25] MEDS: HYDROcodone/APAP 5/325 TABLET 1 TAB PO (06:37)
== END 2024-12-25 06:42 | disposition home or self-care (01) ==
PROVIDERS: Emergency Provider Family Medicine; PCP Family Medicine
DX: N36.8 Other specified disorders of urethra (principal)
CPT/HCPCS: 80053; 85025; 96372; 99283; J1885; A9270

== ENCOUNTER 2024-12-26 10:02 | Emergency (ER) | payer MEDICAID, SELFPAY ==
[2024-12-26 10:03] VITALS: BMI 23.6
[2024-12-26 10:09] VITALS: BP 154/67; PULSE 100; RESP 18; TEMP 36.6; O2SAT 97
[2024-12-26] MEDS: KETOROLAC INJ 60 MG/2 ML VIAL 30 MG IM (10:22)
--- NOTE | 2025-01-02 17:35 | EDNOTE_ITS ---
<Statement entered by Marylou Andersen MD - 01/03/25 06:48> As co-signing physician, I was present and available for consult prn. I concur with the plan and care as documented by the midlevel provider. ED Male Genitalurinary RME/HPI General Stated complaint: GROIN PAIN Source: patient Arrival date/time: 12/26/24 10:02 64-year-old male with no known medical history presents to the emergency room with a chief complaint of chronic groin pain Mode of arrival: ambulatory Limitations: no limitations Related Data Previous Rx's ?Medication ?Instructions ?Recorded hydrocodone 5 mg-acetaminophen 325 1 tab PO BID PRN pa in #10 tabs 09/20/ mg tablet ibuprofen 800 mg tablet 800 mg PO TID PRN pain #30 t abs 09/20/24 tamsulosin 0.4 mg capsule (Flomax) 0.4 mg PO QDAY #20 caps 10/01/24 acetaminophen 300 mg-codeine 30 mg 1 tab PO Q8H PRN pa in #20 tabs 10/26/24 tablet acetaminophen 300 mg-codeine 30 mg 1 tab PO Q8H PRN pa in #20 tabs 10/26/24 tablet hydrocodone 5 mg-acetaminophen 325 1 tab PO BID PRN pa in #6 tabs 10/29/24 mg tablet ketorolac 10 mg tablet 10 mg PO Q8H #10 tabs hydrocodone 5 mg-acetaminophen 325 1 tab PO BID PRN pa in #14 tabs 11/09/24 mg tablet acetaminophen 300 mg-codeine 30 mg 1 tab PO Q8H PRN pa in #20 tabs 11/11/24 tablet ibuprofen 600 mg tablet 600 mg PO Q6H PRN pain #30 t abs 11/11/24 acetaminophen 300 mg-codeine 30 mg 1 tab PO Q8H PRN pa in #20 tabs 12/14/24 tablet tamsulosin 0.4 mg capsule (Flomax) 0.4 mg PO QDAY #20 caps 12/14/24 ketorolac 10 mg tablet 10 mg PO Q6H PRN pain #30 ta bs 12/18/24 hydrocodone 5 mg-acetaminophen 325 1 tab PO BID PRN pa in #10 tabs 12/26/24 mg tablet hydrocodone 5 mg-acetaminophen 325 1 tab PO BID PRN pa in #10 tabs 12/27/24 mg tablet ciprofloxacin HCl 500 mg tablet 500 mg PO BID #14 tabs 12/28/24 (Cipro) hydrocodone 5 mg-acetaminophen 325 2 tab PO Q8H PRN pa in #20 tabs 12/29/24 mg tablet sulfamethoxazole 800 1 tab PO BID 1 week #14 tabs 12/29/24 mg-trimethoprim 160 mg tablet (Bactrim DS) Allergies Allergy/AdvReac Type Severity Reaction Status Date / Time No Known Allergies Allergy Verified 12/30/24 12:08 Review of Systems Review of Systems Systems Reviewed: All systems reviewed, normal except as documented Constitutional Constitutional: Reports system reviewed and no additional complaints, except as documented, Denies fatigue, Denies fever(s), Denies headache(s) and Denies weakness Eyes Eyes: Reports system reviewed and no additional complaints, except as documented, Denies blurry vision and Denies change in vision ENT Ears, Nose, Mouth, and Throat: Reports system reviewed and no additional complaints, except as documented, Denies otalgia, Denies headache(s), Denies nasal congestion, Denies throat swelling and Denies vertigo Cardiovascular Cardiovascular: Reports system reviewed and no additional complaints, except as documented, Denies chest pain, Denies dyspnea and Denies dyspnea on exertion Respiratory Respiratory: Reports system reviewed and no additional complaints, except as documented, Denies chest congestion, Denies cough, Denies dyspnea, Denies dyspnea on exertion and Denies wheezing Gastrointestinal Gastrointestinal: Reports system reviewed and no additional complaints, except as documented, Denies abdominal pain, Denies cramping, Denies nausea and Denies vomiting Genitourinary Genitourinary: Reports system reviewed and no additional complaints, except as documented, Denies dysuria and Denies hematuria Musculoskeletal Musculoskeletal: Reports system reviewed and no additional complaints, except as documented and Denies back pain Integumentary/Breasts Skin/Breast: Reports system reviewed and no additional complaints, except as documented and Denies wounds Neurologic Neurologic: Reports system reviewed and no additional complaints, except as documented, Denies confusion, Denies headache(s), Denies lack of coordination, Denies vertigo and Denies weakness Psychiatric Psychiatric: Reports system reviewed and no additional complaints, except as documented, Denies anxiety, Denies confusion, Denies depression, Denies paranoia, Denies suicidal ideation and Denies tactile hallucinations Endocrine Endocrine: Reports system reviewed and no additional complaints, except as documented and Denies fatigue Hematologic/Lymphatic Hematologic/Lymphatic: Reports system reviewed and no additional complaints, except as documented and Denies lymphadenopathy Allergic/Immunologic Allergic/Immunologic: Reports system reviewed and no additional complaints, except as documented, Denies throat swelling, Denies urticaria and Denies wheezing Past Medical History Past Medical History NEUROLOGIC: Negative Neurological Disorders or Seizures CARDIAC: Negative Cardiac Disorders or Congestive Heart Failure RESPIRATORY: Negative Chronic Obstructive Pulmonary Disease (COPD) or Asthma GENITOURINARY: Positive Genitourinary Disorders, Kidney Stones and Benign Prostatic Hyperplasia; Negative Renal Disease MUSCULOSKELETAL: Positive Musculoskeletal Disorders and Degenerative Joint Disease ENDOCRINE: Negative Diabetes Mellitus Type 1 or Diabetes Mellitus Type 2 HEMATOLOGIC: Negative Sickle Cell Disease OTHER HISTORY: Negative Blood Transfusions, Blood Transfusion Reaction or An esthesia Reactions Social History SMOKING STATUS: Light (< 1 pack/day) SUBSTANCE USE: does not use ED Exam General Limitations: Present no limitations General appearance: Present alert and in no apparent distress Head Head exam: Present atraumatic Eye Eye exam: Present normal appearance, PERRL and EOMI ENT ENT exam: Present normal exam, normal oropharynx and mucous membranes moist Neck Neck exam: Present normal inspection, full ROM and trachea midline Chest Chest inspection: Present normal inspection and symmetric chest wall rise Respiratory Respiratory exam: Present normal lung sounds bilaterally Cardiovascular Cardiovascular exam: Present regular rate, normal rhythm and normal heart sounds Abdominal Exam Abdominal exam: Present soft and normal bowel sounds Extremities Exam Extremities exam: Present normal inspection and full ROM Back Exam Back exam: Present normal inspection and full ROM Neurological Exam Neurological exam: Present alert, oriented X3 and CN II-XII intact Psychiatric Psychiatric exam: Present normal affect and normal mood Skin Skin exam: Present warm, dry, intact and normal color Course Quality Measures none Orders Category Date Time Status Ketorolac Inj [Toradol Inj] Med 12/26/24 10:17 Discontinued 30 mg IM X1 ONE Vital Signs Vital signs: Vital Signs Temperature 97.9 F 12/26/24 10:09 Pulse Rate 100 12/26/24 10:09 Respiratory Rate 18 12/26/24 10:09 Blood Pressure 154/67 H 12/26/24 10:09 Pulse Oximetry (%) 97 12/26/24 10:09 Oxygen Delivery Method Room Air 12/26/24 10:09 Urogenital - Male MDM Narrative MDM Narrative:: 64-year-old male with no known medical history presents to the emergency room with a chief complaint of chronic groin pain Patient is hemodynamically stable and in no apparent distress Patient has a history of chronic groin pain due to bladder stones. Patient has an appointment with a urologist coming up on 16 January. Patient states he is just here for pain management as he is out of his pain medication. Pain medication was given and the patient was educated to follow-up with his urologist Patient was discharged and educated to follow-up with primary care provider in the next 24 to 48 hours and return to the emergency room for any evidence of worsening signs or symptoms Patient data External records reviewed:: [facility] previous records Clinical information provided by:: patient Social determinants that could affect healthcare access:: none Patient has the following chronic illnesses:: BPH How is presenting disease/condition affected by chronic disease/condition?: no chronic disease Evaluation data The following diagnostics were reviewed and interpreted by me:: lab results and radiology exam(s) Lab and/or radiology exams considered but not ordered:: Labs and radiology exams considered and ordered Interpretation Summary: N/A Medications / Prescriptions Medications or Prescriptions considered but not ordered:: Medication given Medication administrations:: Medication Administration History Discontinued Medications Ketorolac Tromethamine (Ketorolac Inj 60 Mg/2 Ml Vial) 30 mg IM X1 ONE Stop: 12/26/24 10:18 Last Admin: 12/26/24 10:22 Dose: 30 mg Documented By: Medication given Consultations Consultation(s) initiated? (list below): No Diagnosis Urogenital Male Differential Diagnosis: urinary tract infection, acute retention of urine and other Most likely diagnosis given after review of the tests above:: Groin pain Admission Indicated Admission indicated?: not indicated Admission Request Was there a request for admission?: No Disposition Plan Disposition Plan: Discharge Discharge Attestation Discharge Attestation: The patient and all family members were given an opportunity to ask questions and understood the discharge instructions. Discharge instructions specifically effects, indications for sooner follow up or return to the emergency department, and the expected course of current diagnosis. Patient condition: Stable Discharge Plan Plan Patient Disposition: HOME (Self Care) Discharge Disposition comment: Stable Prescriptions/Referrals Prescriptions/Med Rec: New hydrocodone-acetaminophen 5-325 mg tablet 1 tab PO BID MDD 10mg PRN (Reason: pain) Qty: 10 0RF No Action tamsulosin [Flomax] 0.4 mg capsule 0.4 mg PO QDAY Qty: 20 0RF acetaminophen-codeine 300-30 mg tablet 1 tab PO Q8H PRN (Reason: pain) Qty: 20 0RF acetaminophen-codeine 300-30 mg tablet 1 tab PO Q8H PRN (Reason: pain) Qty: 20 0RF hydrocodone-acetaminophen 5-325 mg tablet 1 tab PO BID MDD 10 PRN (Reason: pain) Qty: 14 0RF ibuprofen 600 mg tablet 600 mg PO Q6H PRN (Reason: pain) Qty: 30 0RF acetaminophen-codeine 300-30 mg tablet 1 tab PO Q8H PRN (Reason: pain) Qty: 20 0RF hydrocodone-acetaminophen 5-325 mg tablet 1 tab PO BID MDD 10 PRN (Reason: pain) Qty: 10 0RF ibuprofen 800 mg tablet 800 mg PO TID PRN (Reason: pain) Qty: 30 0RF hydrocodone-acetaminophen 5-325 mg tablet 1 tab PO BID MDD 10 PRN (Reason: pain) Qty: 10 0RF hydrocodone-acetaminophen 5-325 mg tablet 1 tab PO BID MDD 10mg PRN (Reason: pain) Qty: 6 0RF ketorolac 10 mg tablet 10 mg PO Q8H Qty: 10 0RF Rx Instructions: maximum total duration of 5 days from all oral, intranasal, or parenteral formulations acetaminophen-codeine 300-30 mg tablet 1 tab PO Q8H PRN (Reason: pain) Qty: 20 0RF tamsulosin [Flomax] 0.4 mg capsule 0.4 mg PO QDAY Qty: 20 0RF ketorolac 10 mg tablet 10 mg PO Q6H PRN (Reason: pain) Qty: 30 0RF Rx Instructions: maximum total duration of 5 days from all oral, intranasal, or parenteral formulations ciprofloxacin HCl [Cipro] 500 mg tablet 500 mg PO BID Qty: 14 0RF sulfamethoxazole-trimethoprim [Bactrim DS] 800-160 mg tablet 1 tab PO BID 7 Days Qty: 14 0RF Rx Instructions: Take one tablet by mouth twice a day hydrocodone-acetaminophen 5-325 mg tablet 2 tab PO Q8H MDD 6 PRN (Reason: pain) Qty: 20 0RF Problem List Clinical Impression: Urethral pain Patient/Caregiver Discharge Instructions Additional Instructions: Please follow-up with your primary care provider in the next 24 to 48 hours Medication was sent to your pharmacy please pick it up and take it as indicated For any evidence of worsening signs or symptoms return to the emergency room immediately Print Language: Divehi Stand Alone Forms: Latoya Award Info., Patient Portal Info Letter PA/WATER JET LOOM FIXER Supervising Physician PA/WATER JET LOOM FIXER Supervising Physician: Dr. Spaulding
== END 2024-12-26 10:40 | disposition home or self-care (01) ==
LOC: SERX 10:39
PROVIDERS: Emergency Provider Family Medicine; PCP Family Medicine
DX: N36.8 Other specified disorders of urethra (principal)
CPT/HCPCS: 96372; 99283; J1885

== ENCOUNTER 2024-12-27 06:23 | Emergency (ER) | payer MEDICAID, SELFPAY ==
[2024-12-27 06:23] VITALS: BMI 22.8
[2024-12-27 06:29] VITALS: BP 162/84; PULSE 94; RESP 18; TEMP 36.8; O2SAT 98
--- NOTE | 2024-12-27 06:35 | EDNOTE_ITS ---
ED Male Genitalurinary RME/HPI General Chief complaint: Urogenital-Male Stated complaint: BLADDER PAIN Time Seen by Provider: 12/27/24 06:27 Arrival date/time: 12/27/24 06:23 64-year-old male with a history of BPH, and a kidney stone presents to the emergency room with a chief complaint of urethral pain. Limitations: no limitations Related Data Previous Rx's ?Medication ?Instructions ?Recorded hydrocodone 5 mg-acetaminophen 325 1 tab PO BID PRN pa in #10 tabs 09/20/ mg tablet ibuprofen 800 mg tablet 800 mg PO TID PRN pain #30 t abs 09/20/24 tamsulosin 0.4 mg capsule (Flomax) 0.4 mg PO QDAY #20 caps 10/01/24 acetaminophen 300 mg-codeine 30 mg 1 tab PO Q8H PRN pa in #20 tabs 10/26/24 tablet acetaminophen 300 mg-codeine 30 mg 1 tab PO Q8H PRN pa in #20 tabs 10/26/24 tablet hydrocodone 5 mg-acetaminophen 325 1 tab PO BID PRN pa in #6 tabs 10/29/24 mg tablet ketorolac 10 mg tablet 10 mg PO Q8H #10 tabs hydrocodone 5 mg-acetaminophen 325 1 tab PO BID PRN pa in #14 tabs 11/09/24 mg tablet acetaminophen 300 mg-codeine 30 mg 1 tab PO Q8H PRN pa in #20 tabs 11/11/24 tablet ibuprofen 600 mg tablet 600 mg PO Q6H PRN pain #30 t abs 11/11/24 acetaminophen 300 mg-codeine 30 mg 1 tab PO Q8H PRN pa in #20 tabs 12/14/24 tablet tamsulosin 0.4 mg capsule (Flomax) 0.4 mg PO QDAY #20 caps 12/14/24 ketorolac 10 mg tablet 10 mg PO Q6H PRN pain #30 ta bs 12/18/24 hydrocodone 5 mg-acetaminophen 325 1 tab PO BID PRN pa in #10 tabs 12/26/24 mg tablet hydrocodone 5 mg-acetaminophen 325 1 tab PO BID PRN pa in #10 tabs 12/27/24 mg tablet ketorolac 10 mg tablet 10 mg PO BID PRN pain 5 days #10 12/27/24 tabs Allergies Allergy/AdvReac Type Severity Reaction Status Date / Time No Known Allergies Allergy Verified 12/26/24 10:04 Review of Systems Review of Systems Systems Reviewed: All systems reviewed, normal except as documented Constitutional Constitutional: Reports system reviewed and no additional complaints, except as documented, Denies fever(s) and Denies headache(s) Eyes Eyes: Reports system reviewed and no additional complaints, except as documented and Denies blurry vision ENT Ears, Nose, Mouth, and Throat: Reports system reviewed and no additional complaints, except as documented, Denies headache(s), Denies nasal congestion and Denies nasal discharge Cardiovascular Cardiovascular: Reports system reviewed and no additional complaints, except as documented, Denies chest pain and Denies dyspnea Respiratory Respiratory: Reports system reviewed and no additional complaints, except as documented, Denies chest congestion, Denies cough and Denies dyspnea Gastrointestinal Gastrointestinal: Reports system reviewed and no additional complaints, except as documented and Denies abdominal pain Genitourinary Genitourinary: Reports system reviewed and no additional complaints, except as documented and Reports other (Penile pain, catheter in place) Integumentary/Breasts Skin/Breast: Reports system reviewed and no additional complaints, except as documented and Denies rash Neurologic Neurologic: Reports system reviewed and no additional complaints, except as documented, Reports as per HPI and Denies headache(s) Past Medical History Past Medical History NEUROLOGIC: Negative Neurological Disorders or Seizures CARDIAC: Negative Cardiac Disorders or Congestive Heart Failure RESPIRATORY: Negative Chronic Obstructive Pulmonary Disease (COPD) or Asthma GENITOURINARY: Positive Genitourinary Disorders, Kidney Stones and Benign Prostatic Hyperplasia; Negative Renal Disease MUSCULOSKELETAL: Positive Musculoskeletal Disorders and Degenerative Joint Disease ENDOCRINE: Negative Diabetes Mellitus Type 1 or Diabetes Mellitus Type 2 HEMATOLOGIC: Negative Sickle Cell Disease OTHER HISTORY: Negative Blood Transfusions, Blood Transfusion Reaction or Anesthesia Reactions Social History SMOKING STATUS: Current every day smoker SUBSTANCE USE: does not use ED Exam General Limitations: Present no limitations General appearance: Present alert and in no apparent distress Head Head exam: Present atraumatic, normocephalic and normal inspection Eye Eye exam: Present normal appearance, PERRL and EOMI; Absent conjunctival injection ENT ENT exam: Present normal exam, normal oropharynx and mucous membranes moist Neck Neck exam: Present normal inspection, full ROM and trachea midline Chest Chest inspection: Present normal inspection and symmetric chest wall rise Respiratory Respiratory exam: Present normal lung sounds bilaterally; Absent respiratory distress, wheezes, stridor, accessory muscle use or prolonged expiratory phase Cardiovascular Cardiovascular exam: Present regular rate, normal rhythm and normal heart sounds Abdominal Exam Abdominal exam: Present soft and normal bowel sounds; Absent distention, tenderness, guarding, rebound or rigidity Abdominal tenderness: Absent RUQ or RLQ Extremities Exam Extremities exam: Present normal inspection and full ROM Back Exam Back exam: Present normal inspection and full ROM Neurological Exam Neurological exam: Present alert, oriented X3 and CN II-XII intact Psychiatric Psychiatric exam: Present normal affect and normal mood Skin Skin exam: Present warm, dry, intact and normal color Course Quality Measures none Orders Category Date Time Status HYDROcodone*/APAP 5/325 [[place] 5/325] Med 12/27/24 06:28 Discontinued 1 tab PO X1 ONE Ketorolac Inj [Toradol Inj] Med 12/27/24 06:28 Discontinued 30 mg IM X1 ONE Vital Signs Vital signs: Vital Signs Temperature 98.3 F 12/27/24 06:29 Pulse Rate 94 12/27/24 06:29 Respiratory Rate 18 12/27/24 06:29 Blood Pressure 162/84 H 12/27/24 06:29 Pulse Oximetry (%) 98 12/27/24 06:29 Oxygen Delivery Method Room Air 12/27/24 06:29 O2 saturation 98% room air within normal limits Urogenital - Male MDM Narrative MDM Narrative:: 64-year-old male with a history of BPH, and a kidney stone presents to the emergency room with a chief complaint of urethral pain. Clinically patient is hemodynamically stable and in no apparent distress Patient has acute on chronic pain Patient states he has his BPH surgery scheduled for January 16, 2025. Patient refused any imaging or blood work and states he just wants to control his pain. There is no urinary retention. Patient given pain control thankful for the care Patient was discharged and educated to follow-up with primary care provider in the next 24 to 48 hours and return to the emergency room for any evidence of w orsening signs or symptoms Patient data External records reviewed:: [facility] previous records Clinical information provided by:: patient Social determinants that could affect healthcare access:: none Patient has the following chronic illnesses:: See history How is presenting disease/condition affected by chronic disease/condition?: caused by Evaluation data The following diagnostics were reviewed and interpreted by me:: lab results and radiology exam(s) Lab and/or radiology exams considered but not ordered:: Labs radiology obtained Interpretation Summary: Reviewed by me Medications / Prescriptions Medications or Prescriptions considered but not ordered:: Given Medication administrations:: Medication Administration History Discontinued Medications Hydrocodone Bitart/Acetaminophen (Hydrocodone/Apap 5/325 Tablet) 1 tab PO X1 ONE Stop: 12/27/24 06:29 Last Admin: 12/27/24 06:39 Dose: 1 tab Documented By: HECTOR Ketorolac Tromethamine (Ketorolac Inj 30 Mg/Ml Vial) 30 mg IM X1 ONE Stop: 12/27/24 06:29 Last Admin: 12/27/24 06:39 Dose: 30 mg Documented By: HECTOR given Consultations Consultation(s) initiated? (list below): No Diagnosis Urogenital Male Differential Diagnosis: other (Bladder pain, penile pain) Most likely diagnosis given after review of the tests above:: Bladder pain, penile pain Admission Indicated Admission indicated?: not indicated Admission Request Was there a request for admission?: No Disposition Plan Disposition Plan: Discharge Discharge Attestation Discharge Attestation: The patient and all family members were given an opportunity to ask questions and understood the discharge instructions. Discharge instructions specifically effects, indications for sooner follow up or return to the emergency department, and the expected course of current diagnosis. Patient condition: Stable Discharge Plan Plan Patient Disposition: HOME (Self Care) Discharge Disposition comment: Stable Prescriptions/Referrals Prescriptions/Med Rec: New ketorolac 10 mg tablet 10 mg PO BID PRN (Reason: pain) 5 Days Qty: 10 0RF hydrocodone-acetaminophen 5-325 mg tablet 1 tab PO BID MDD 10 PRN (Reason: pain) Qty: 10 0RF No Action tamsulosin [Flomax] 0.4 mg capsule 0.4 mg PO QDAY Qty: 20 0RF acetaminophen-codeine 300-30 mg tablet 1 tab PO Q8H PRN (Reason: pain) Qty: 20 0RF acetaminophen-codeine 300-30 mg tablet 1 tab PO Q8H PRN (Reason: pain) Qty: 20 0RF hydrocodone-acetaminophen 5-325 mg tablet 1 tab PO BID MDD 10 PRN (Reason: pain) Qty: 14 0RF ibuprofen 600 mg tablet 600 mg PO Q6H PRN (Reason: pain) Qty: 30 0RF acetaminophen-codeine 300-30 mg tablet 1 tab PO Q8H PRN (Reason: pain) Qty: 20 0RF ibuprofen 800 mg tablet 800 mg PO TID PRN (Reason: pain) Qty: 30 0RF hydrocodone-acetaminophen 5-325 mg tablet 1 tab PO BID MDD 10 PRN (Reason: pain) Qty: 10 0RF hydrocodone-acetaminophen 5-325 mg tablet 1 tab PO BID MDD 10mg PRN (Reason: pain) Qty: 6 0RF ketorolac 10 mg tablet 10 mg PO Q8H Qty: 10 0RF Rx Instructions: maximum total duration of 5 days from all oral, intranasal, or parenteral formulations acetaminophen-codeine 300-30 mg tablet 1 tab PO Q8H PRN (Reason: pain) Qty: 20 0RF tamsulosin [Flomax] 0.4 mg capsule 0.4 mg PO QDAY Qty: 20 0RF ketorolac 10 mg tablet 10 mg PO Q6H PRN (Reason: pain) Qty: 30 0RF Rx Instructions: maximum total duration of 5 days from all oral, intranasal, or parenteral formulations hydrocodone-acetaminophen 5-325 mg tablet 1 tab PO BID MDD 10mg PRN (Reason: pain) Qty: 10 0RF Problem List Clinical Impression: Bladder pain Patient/Caregiver Discharge Instructions Additional Instructions: Please please keep your appoint with your surgeon as discussed for worsening symptoms return immediately Print Language: Syriac Stand Alone Forms: Latoya Award Info., Patient Portal Info Letter PA/MANUSCRIPT READER Supervising Physician PA/MANUSCRIPT READER Supervising Physician: dr payne
[2024-12-27] MEDS: KETOROLAC INJ 30 MG/ML VIAL IM (06:39)
[2024-12-27] MEDS: HYDROcodone/APAP 5/325 TABLET 1 TAB PO (06:39)
== END 2024-12-27 06:45 | disposition home or self-care (01) ==
LOC: SERX 06:46
PROVIDERS: Emergency Provider Emergency Medicine; PCP Family Medicine
DX: R39.89 Other symptoms and signs involving the genitourinary system (principal); Z98.890 Other specified postprocedural states
CPT/HCPCS: 96372; 99283; J1885; A9270

== ENCOUNTER 2024-12-28 13:09 | Emergency (ER) | payer MEDICAID, SELFPAY ==
[2024-12-28 13:25] VITALS: BP 154/78; PULSE 95; RESP 23; TEMP 36.7; O2SAT 98
[2024-12-28] MEDS: KETOROLAC INJ 30 MG/ML VIAL IM (13:40)
--- NOTE | 2024-12-28 14:03 | EDNOTE_ITS ---
ED Abdominal Pain RME/HPI General Chief Complaint: Abdominal Pain Stated complaint: BLADDER STONES HURT Time seen by provider: 12/28/24 13:24 Arrival date/time: 12/28/24 13:09 RME / HPI RME / HPI narrative: 64-year-old male patient came in for evaluation regarding bladder pain. Patient has been having worsening bladder pain for the last several months, scheduled for bladder stone surgery in [place] in 19 days. Patient been coming to this emergency room several times for the same complaints. However today patient notes these puslike urine drainage. Patient had a chronic Melgar catheter. Went to [facility] 2 days ago and he changed the Melgar catheter. Patient denies any fever denies any other complaints. Been taking Burdett with no relief. Related Data Previous Rx's ?Medication ?Instructions ?Recorded hydrocodone 5 mg-acetaminophen 325 1 tab PO BID PRN pa in #10 tabs 09/20/24 mg tablet ibuprofen 800 mg tablet 800 mg PO TID PRN pain #30 t abs 09/20/24 tamsulosin 0.4 mg capsule (Flomax) 0.4 mg PO QDAY #20 caps 10/01/24 acetaminophen 300 mg-codeine 30 mg 1 tab PO Q8H PRN pa in #20 tabs 10/26/24 tablet acetaminophen 300 mg-codeine 30 mg 1 tab PO Q8H PRN pa in #20 tabs 10/26/24 tablet hydrocodone 5 mg-acetaminophen 325 1 tab PO BID PRN pa in #6 tabs 10/29/24 mg tablet ketorolac 10 mg tablet 10 mg PO Q8H #10 tabs hydrocodone 5 mg-acetaminophen 325 1 tab PO BID PRN pa in #14 tabs 11/09/24 mg tablet acetaminophen 300 mg-codeine 30 mg 1 tab PO Q8H PRN pa in #20 tabs 11/11/24 tablet ibuprofen 600 mg tablet 600 mg PO Q6H PRN pain #30 t abs 11/11/24 acetaminophen 300 mg-codeine 30 mg 1 tab PO Q8H PRN pa in #20 tabs 12/14/24 tablet tamsulosin 0.4 mg capsule (Flomax) 0.4 mg PO QDAY #20 caps 12/14/24 ketorolac 10 mg tablet 10 mg PO Q6H PRN pain #30 ta bs 12/18/24 hydrocodone 5 mg-acetaminophen 325 1 tab PO BID PRN pa in #10 tabs 12/26/25 mg tablet hydrocodone 5 mg-acetaminophen 325 1 tab PO BID PRN pa in #10 tabs 12/27/24 mg tablet ketorolac 10 mg tablet 10 mg PO BID PRN pain 5 days #10 12/27/24 tabs ciprofloxacin HCl 500 mg tablet 500 mg PO BID #14 tabs 12/28/24 (Cipro) Allergies Allergy/AdvReac Type Severity Reaction Status Date / Time No Known Allergies Allergy Verified 12/28/24 13:11 Review of Systems Review of Systems Narrative Review of Systems: Review of system reviewed and within normal limits except mentioned in HPI ED Exam Narrative Physical exam: VITAL SIGNS: Reviewed. GENERAL APPEARANCE: Alert and interactive, follows commands, no acute distress, HEAD AND FACE: Non-traumatic. ENT: PERRL, pink conjunctivitis, eyelid no trauma, Mucous membrane moist. NECK: Supple, nontender, no nuchal rigidity. CHEST: No tenderness, no crepitus, no paradoxical movement, no retractions. LUNGS: Clear, well ventilated, symmetric, no rales, no wheezing, no ronchi, no stridor, good breath sounds bilaterally. HEART: Regular rate, regular rhythm, no murmur, no gallops. ABDOMEN: Soft, positive bowel sounds, nondistended, no guarding, nontender, no rebound, no masses, RECTAL: Deferred. GENITAL: Melgar catheter intact, puslike drainage noted on the catheter bag, tenderness to the suprapubic area nondistended NEUROLOGICAL: Gross motor function intact sensory function intact, Appropriate for age. MUSCULOSKELETAL: low back nontender, full range of motion. EXTREMITIES: Nontender, full range of motion. SKIN: Color pink, dry, no rash, no lacerations, no abrasions, no contusions. LYMPHATICS: Deferred. Course Quality Measures none Orders Category Date Time Status CT abdomen pelvis wo con Stat Exams 12/28/24 13:36 Ordered Urinalysis Stat Lab 12/28/24 14:22 Completed Urine Culture Stat Lab 12/28/24 14:28 Received Ketorolac Inj [Toradol Inj] Med 12/28/24 13:36 Discontinued 30 mg IM X1 ONE Vital Signs Vital signs: Vital Signs Temperature 98.1 F 12/28/24 13:25 Pulse Rate 95 12/28/24 13:25 Respiratory Rate 23 H 12/28/24 13:25 Blood Pressure 154/78 H 12/28/24 13:25 Pulse Oximetry (%) 98 12/28/24 13:25 Oxygen Delivery Method Room Air 12/28/24 13:25 Abdominal Pain MDM MDM Narrative MDM Narrative:: 64-year-old male patient came in for evaluation regarding bladder pain. Patient has been having worsening bladder pain for the last several months, scheduled for bladder stone surgery in [place] in 19 days. Patient been coming to this emergency room several times for the same complaints. However today patient notes these puslike urine drainage. Patient had a chronic Melgar catheter. Went to [facility] 2 days ago and he changed the Melgar catheter. Patient denies any fever denies any other complaints. Been taking Burdett with no relief. Patient refused blood draw. 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 If he decided to change his mind he can come back anytime. Patient data External records reviewed:: None Clinical information provided by:: patient Social determinants that could affect healthcare access:: none Patient has the following chronic illnesses:: History of bladder stones, chronic Melgar How is presenting disease/condition affected by chronic disease/condition?: exacerbated by Evaluation data The following diagnostics were reviewed and interpreted by me:: lab results and radiology exam(s) Lab and/or radiology exams considered but not ordered:: None Interpretation Summary: Refused blood draw Medications / Prescriptions Medications or Prescriptions considered but not ordered:: None Toradol IM Medication administrations:: Medication Administration History Discontinued Medications Ketorolac Tromethamine (Ketorolac Inj 30 Mg/Ml Vial) 30 mg IM X1 ONE Stop: 12/28/24 13:37 Last Admin: 12/28/24 13:40 Dose: 30 mg Documented By: DELMY Toradol IM Consultations Consultation(s) initiated? (list below): No Diagnosis Differential diagnosis abdominal pain: abdominal pain and calculus of kidney Most likely diagnosis given after review of the tests above:: Bladder pain, UTI Admission Indicated Admission indicated?: not indicated Admission Request Was there a request for admission?: No Disposition Plan Disposition Plan: other (specify) Discharge Attestation Discharge Attestation: Elopement Discharge Plan Plan Patient Disposition: Elopement Prescriptions/Referrals Prescriptions/Med Rec: New ciprofloxacin HCl [Cipro] 500 mg tablet 500 mg PO BID Qty: 14 0RF No Action tamsulosin [Flomax] 0.4 mg capsule 0.4 mg PO QDAY Qty: 20 0RF acetaminophen-codeine 300-30 mg tablet 1 tab PO Q8H PRN (Reason: pain) Qty: 20 0RF acetaminophen-codeine 300-30 mg tablet 1 tab PO Q8H PRN (Reason: pain) Qty: 20 0RF hydrocodone-acetaminophen 5-325 mg tablet 1 tab PO BID MDD 10 PRN (Reason: pain) Qty: 14 0RF ibuprofen 600 mg tablet 600 mg PO Q6H PRN (Reason: pain) Qty: 30 0RF acetaminophen-codeine 300-30 mg tablet 1 tab PO Q8H PRN (Reason: pain) Qty: 20 0RF ketorolac 10 mg tablet 10 mg PO BID PRN (Reason: pain) 5 Days Qty: 10 0RF hydrocodone-acetaminophen 5-325 mg tablet 1 tab PO BID MDD 10 PRN (Reason: pain) Qty: 10 0RF ibuprofen 800 mg tablet 800 mg PO TID PRN (Reason: pain) Qty: 30 0RF hydrocodone-acetaminophen 5-325 mg tablet 1 tab PO BID MDD 10 PRN (Reason: pain) Qty: 10 0RF hydrocodone-acetaminophen 5-325 mg tablet 1 tab PO BID MDD 10mg PRN (Reason: pain) Qty: 6 0RF ketorolac 10 mg tablet 10 mg PO Q8H Qty: 10 0RF Rx Instructions: maximum total duration of 5 days from all oral, intranasal, or parenteral formulations acetaminophen-codeine 300-30 mg tablet 1 tab PO Q8H PRN (Reason: pain) Qty: 20 0RF tamsulosin [Flomax] 0.4 mg capsule 0.4 mg PO QDAY Qty: 20 0RF ketorolac 10 mg tablet 10 mg PO Q6H PRN (Reason: pain) Qty: 30 0RF Rx Instructions: maximum total duration of 5 days from all oral, intranasal, or parenteral formulations hydrocodone-acetaminophen 5-325 mg tablet 1 tab PO BID MDD 10mg PRN (Reason: pain) Qty: 10 0RF Referrals: Parminder Lyles MD [Primary Care Provider, Family Practice] - In 1 week Problem List Clinical Impression: Bladder pain Patient/Caregiver Discharge Instructions Print Language: Palestinian
[2024-12-28 14:42] LABS: Collection Type, Urine Clean Catch; Squamous Epithelial Cell,Urine 0 /hpf (0-5)
[2024-12-28 15:08] LABS: Bacteria,Urine 4+; RBC,Urine 1000 /hpf (0-3); WBC,Urine 2933 /hpf (0-5)
[2024-12-28 15:09] LABS: Bilirubin,Urine Negative (Negative); Clarity,Urine Turbid (Clear/Hazy); Color,Urine Lt-Brown (Lt Yel-Yel); Glucose, Urine Negative (Negative); Ketones,Urine 1+ (Negative); Specific Gravity,Urine 1.010 (1.001-1.035)
[2024-12-28 15:10] LABS: Blood,Urine Trace-Intact (Negative); Leukocyte Esterase,Urine 4+ (Negative); Nitrite,Urine Positive (Negative); PH,Urine 8.5 (5.0-7.0); Protein,Urine 4+ (Neg - Trace); Urobilinogen,Urine 0.2 mg/dL (0.0-1.0)
--- NOTE | 2024-12-28 15:33 | PC.NURSE ---
PT REFUSED BLOOD WORK. DAXA CHOUDHURY INFORMED
--- NOTE | 2024-12-28 15:46 | PC.NURSE ---
CALLED AT THIS TIME, NO ANSWER
--- NOTE | 2024-12-28 16:07 | PC.NURSE ---
NA X2 @ 1600
--- NOTE | 2024-12-28 16:33 | PC.NURSE ---
NA X3 PT ELOPED
== END 2024-12-28 16:34 | disposition left against medical advice (07) ==
PROVIDERS: Nurse Practitioner Primary Care; Emergency Provider Family Medicine; PCP Family Medicine
DX: R39.89 Other symptoms and signs involving the genitourinary system (principal); Z53.29 Procedure and treatment not carried out because of patient's decision for other reasons
CPT/HCPCS: 80053; 81001; 83605; 84145; 85025; 87040; 87077; 87086; 87186; 96372; 99283; J1885

== ENCOUNTER 2024-12-29 04:36 | Emergency (ER) | payer MEDICAID, SELFPAY ==
[2024-12-29 04:37] VITALS: PULSE 98; O2SAT 98
[2024-12-29 05:03] VITALS: BP 136/70; PULSE 98; RESP 17; TEMP 36.6; O2SAT 97
--- NOTE | 2024-12-29 05:19 | EDNOTE_ITS ---
ED General RME/HPI General Chief complaint: Abdominal Pain Stated complaint: GROIN PAIN Time Seen by Provider: 12/29/24 05:18 Arrival date/time: 12/29/24 04:36 RME / HPI RME / HPI narrative: 64 y/o male with extensive PMHx who comes in for evaluation for bladder pain. Pt has come to the ED for similar episodes in the past. Of note patient was in the emergency room about 12 hours prior and had eloped. He is requesting pain medicine and reports that he is going to get surgery in 19 days in [place]. Related Data Previous Rx's ?Medication ?Instructions ?Recorded hydrocodone 5 mg-acetaminophen 325 1 tab PO BID PRN pa in #10 tabs 09/20/ mg tablet ibuprofen 800 mg tablet 800 mg PO TID PRN pain #30 t abs 09/20/24 tamsulosin 0.4 mg capsule (Flomax) 0.4 mg PO QDAY #20 caps 10/01/24 acetaminophen 300 mg-codeine 30 mg 1 tab PO Q8H PRN pa in #20 tabs 10/26/24 tablet acetaminophen 300 mg-codeine 30 mg 1 tab PO Q8H PRN pa in #20 tabs 10/26/24 tablet hydrocodone 5 mg-acetaminophen 325 1 tab PO BID PRN pa in #6 tabs 10/29/24 mg tablet ketorolac 10 mg tablet 10 mg PO Q8H #10 tabs hydrocodone 5 mg-acetaminophen 325 1 tab PO BID PRN pa in #14 tabs 11/09/24 mg tablet acetaminophen 300 mg-codeine 30 mg 1 tab PO Q8H PRN pa in #20 tabs 11/11/24 tablet ibuprofen 600 mg tablet 600 mg PO Q6H PRN pain #30 t abs 11/11/24 acetaminophen 300 mg-codeine 30 mg 1 tab PO Q8H PRN pa in #20 tabs 12/14/24 tablet tamsulosin 0.4 mg capsule (Flomax) 0.4 mg PO QDAY #20 caps 12/14/24 ketorolac 10 mg tablet 10 mg PO Q6H PRN pain #30 ta bs 12/18/24 hydrocodone 5 mg-acetaminophen 325 1 tab PO BID PRN pa in #10 tabs 12/26/24 mg tablet hydrocodone 5 mg-acetaminophen 325 1 tab PO BID PRN pa in #10 tabs 12/27/24 mg tablet ketorolac 10 mg tablet 10 mg PO BID PRN pain 5 days #10 12/27/24 tabs ciprofloxacin HCl 500 mg tablet 500 mg PO BID #14 tabs 12/28/24 (Cipro) Allergies Allergy/AdvReac Type Severity Reaction Status Date / Time No Known Allergies Allergy Verified 12/29/24 04:39 Review of Systems Review of Systems Narrative Review of Systems: Constitutional: No fever, chills, fatigue, weakness, weight loss HEENT: No eye pain, vision loss, ear pain, hearing loss, dysphagia, Cardiovascular: No chest pain, palpitations, edema, pain with walking Respiratory: No cough, shortness of breath, wheezing GI: No NVD, abdominal pain, constipation, blood in stool, loss of appetite, heartburn : + Bladder pain Extremities: No presence of pitting edema MSK: No back pain, joint pain, joint swelling Neuro: No dizziness, numbness, weakness, headaches, seizures, tremors Psych: No anxiety, depression ED Exam Narrative Physical exam: General: AAOx3, NAD, disheleved, HEENT: Moist mucous membranes, conjunctiva clear, EOMI, PERRLA, poor dentition Cardiovascular: S1, S2, radial pulses +2 bilat, RRR Pulmonary: CTAB bilat no cough, no wheezing GI: No tenderness to light or deep palpitation, no guarding, rigidity, rebound tenderness or distension : Melgar catheter intact, puslike drainage noted on the catheter bag, tenderness to the suprapubic area nondistended Extremities: No presence of trace or pitting edema in lower extremities bilaterally, dorsalis pedis pulses +2 bilaterally Neuro: AAOx3, no focal motor or sensory deficits in the UE or LE bilat Psych: Somewhat cooperative Course Quality Measures none Orders Category Date Time Status CBC Stat Lab 12/29/24 05:24 Ordered CMP [Comprehensive Metabolic Panel] Stat Lab 12/29/24 05:25 Ordered Ketorolac Inj [Toradol Inj] Med 12/29/24 05:24 Discontinued 30 mg IM X1 ONE cefTRIAXone [Rocephin] 1,000 mg Med 12/29/24 05:25 Discontinued Lidocaine 1% 20 ml [Xylocaine 1% 20 ML] 2.1 ml IM X1 Vital Signs Vital signs: Vital Signs Temperature 97.9 F 12/29/24 05:03 Pulse Rate 98 12/29/24 05:03 Respiratory Rate 17 12/29/24 05:03 Blood Pressure 136/70 H 12/29/24 05:03 Pulse Oximetry (%) 97 12/29/24 05:03 Oxygen Delivery Method Room Air 12/29/24 05:03 Discharge Plan Plan Patient Disposition: Elopement Prescriptions/Referrals Prescriptions/Med Rec: No Action tamsulosin [Flomax] 0.4 mg capsule 0.4 mg PO QDAY Qty: 20 0RF acetaminophen-codeine 300-30 mg tablet 1 tab PO Q8H PRN (Reason: pain) Qty: 20 0RF acetaminophen-codeine 300-30 mg tablet 1 tab PO Q8H PRN (Reason: pain) Qty: 20 0RF hydrocodone-acetaminophen 5-325 mg tablet 1 tab PO BID MDD 10 PRN (Reason: pain) Qty: 14 0RF ibuprofen 600 mg tablet 600 mg PO Q6H PRN (Reason: pain) Qty: 30 0RF acetaminophen-codeine 300-30 mg tablet 1 tab PO Q8H PRN (Reason: pain) Qty: 20 0RF ketorolac 10 mg tablet 10 mg PO BID PRN (Reason: pain) 5 Days Qty: 10 0RF hydrocodone-acetaminophen 5-325 mg tablet 1 tab PO BID MDD 10 PRN (Reason: pain) Qty: 10 0RF ibuprofen 800 mg tablet 800 mg PO TID PRN (Reason: pain) Qty: 30 0RF hydrocodone-acetaminophen 5-325 mg tablet 1 tab PO BID MDD 10 PRN (Reason: pain) Qty: 10 0RF hydrocodone-acetaminophen 5-325 mg tablet 1 tab PO BID MDD 10mg PRN (Reason: pain) Qty: 6 0RF ketorolac 10 mg tablet 10 mg PO Q8H Qty: 10 0RF Rx Instructions: maximum total duration of 5 days from all oral, intranasal, or parenteral formulations acetaminophen-codeine 300-30 mg tablet 1 tab PO Q8H PRN (Reason: pain) Qty: 20 0RF tamsulosin [Flomax] 0.4 mg capsule 0.4 mg PO QDAY Qty: 20 0RF ketorolac 10 mg tablet 10 mg PO Q6H PRN (Reason: pain) Qty: 30 0RF Rx Instructions: maximum total duration of 5 days from all oral, intranasal, or parenteral formulations hydrocodone-acetaminophen 5-325 mg tablet 1 tab PO BID MDD 10mg PRN (Reason: pain) Qty: 10 0RF ciprofloxacin HCl [Cipro] 500 mg tablet 500 mg PO BID Qty: 14 0RF Problem List Clinical Impression: At risk for elopement Patient/Caregiver Discharge Instructions Print Language: Sinhala MDM Narrative MDM hospital course (for use when minimal MDM required): 0531: CBC and CMP ordered, Rocephin 1g IM and Toradol 30 mg IM. Pt has urine culture pending from earlier visit. 0548: We informed that pt had eloped. Medication Administration(s) Medication Administration History Discontinued Medications Ceftriaxone Sodium 1,000 mg/ (Lidocaine HCl 2.1 ml) 0 mg IM X1 ONE Stop: 12/29/24 05:26 Last Admin: 12/29/24 05:34 Dose: 1,000 mg Documented By: AYSHA Ketorolac Tromethamine (Ketorolac Inj 30 Mg/Ml Vial) 30 mg IM X1 ONE Stop: 12/29/24 05:25 Last Admin: 12/29/24 05:34 Dose: 30 mg Documented By: AYSHA
[2024-12-29] MEDS: KETOROLAC INJ 30 MG/ML VIAL IM (05:34)
[2024-12-29] MEDS: cefTRIAXone 1,000 MG, LIDOCAINE 1% 20 ML 2.1 ML IM (05:34)
== END 2024-12-29 05:50 | disposition left against medical advice (07) ==
LOC: SERX 05:49
PROVIDERS: Emergency Provider Emergency Medicine; PCP Family Medicine
DX: R39.89 Other symptoms and signs involving the genitourinary system (principal); Z53.21 Procedure and treatment not carried out due to patient leaving prior to being seen by health care provider
CPT/HCPCS: 80053; 85025; 96372; 99283; J0696; J1885; J3490

== ENCOUNTER 2024-12-29 14:02 | Emergency (ER) | payer MEDICAID, SELFPAY ==
[2024-12-29 14:04] VITALS: BMI 22.8
[2024-12-29 14:23] VITALS: BP 145/76; PULSE 99; RESP 18; TEMP 36.9; O2SAT 100
--- NOTE | 2024-12-29 14:33 | XR_ITS ---
Examination: CT abdomen and pelvis without contrast. Coronal 3-D reconstructions. Sagittal 2-D reconstructions. Date and time of exam:December 29, 2024, 1448 hours, comparison October 15, 2024 INDICATIONS: Lower abdominal pain back pain flank pain today, history kidney stones CTDI: vol (mGy): 5.72 DLP: (mGycm): 316 Technique: Axial images of the abdomen have been obtained, 3 mm slice thickness Intravenous contrast material has not been administered. Low dose protocols were performed. One or more of the following dose reduction techniques were used; automated exposure control, adjustment of the mA and/or KV according to patient size, use of iterative reconstruction technique. Findings: No focal liver or splenic lesions Contracted gallbladder No pancreatic mass Normal adrenal glands No renal or ureteral calculi, no hydronephrosis Aorta normal size Normal appendix No bowel obstruction No diverticulitis Diffuse urinary bladder wall thickening Transverse prostate dimension 3.7 cm 4 cm 3.4 cm 1.8 cm and 3.3 cm bladder calculi Severe osteopenia, lumbar fusion L2-L4, advanced disc narrowing L1-L2, L4-L5 Moderate narrowing hip joints IMPRESSION: No renal or ureteral calculi, no hydronephrosis Large bladder calculi
--- NOTE | 2024-12-29 14:35 | PD.EDRME ---
Rapid Medical Screening Exam RME Arrival date/time: 12/29/24 14:02 64-year-old male with a history of a chronic urinary catheter due to a large bladder kidney stone presents to the emergency room with a chief complaint of 10 out of 10 pelvic pain, and dysuria x 4 days. Patient was seen here earlier this morning and eloped I have greeted and performed a focused initial assessment of this patient. A comprehensive ED assessment and evaluation of the patient, analysis of all test results, and completion of the medical decision making process will be conducted by additional ED providers. Chief Complaint: Urogenital-Male Time Seen by Provider: 12/29/24 14:26 Vital signs: Vital Signs Temperature 98.5 F 12/29/24 14:23 Pulse Rate 99 12/29/24 14:23 Respiratory Rate 18 12/29/24 14:23 Blood Pressure 145/76 H 12/29/24 14:23 Pulse Oximetry (%) 100 12/29/24 14:23 Oxygen Delivery Method Room Air 12/29/24 14:23 Vital signs reviewed by provider: Yes
[2024-12-29 14:47] LABS: Basophils # (Auto) 0.1 Thou/mm3 (0.0-0.2); Basophils % (Auto) 1 % (0-2.5); Eosinophils # (Auto) 0.4 Thou/mm3 (0.0-0.5); Eosinophils % (Auto) 5 % (0-10); Hematocrit 33.8 % (41.0-53.0); Hemoglobin 11.0 g/dL (13.5-16.0); Immature Granulocytes Auto 0.02 Thou/mm3 (0.00-0.00); Lymphocytes # (Auto) 1.4 Thou/mm3 (1.0-4.8); Lymphocytes % (Auto) 17 % (10-50); Mean Corpuscular HGB Conc 32.5 g/dl (31.0-37.0); Mean Corpuscular Hemoglobin 28.1 pg (25.0-35.0); Mean Corpuscular Volume 86 fL (80-100); Monocytes # (Auto) 0.9 Thou/mm3 (0.0-0.8); Monocytes % (Auto) 11 % (0-12); Neutrophils # (Auto) 5.5 Thou/mm3 (1.8-7.7); Neutrophils % (Auto) 67 % (37-80); Nucleated Red Blood Cell # 0.00 Thou/mm3 (0.00-0.00); Nucleated Red Blood Cell % 0 /100 WBC (0); Platelet Count 407 Thou/mm3 (140-440); RDW Standard Deviation 47.7 fL (35.1-43.9); Red Blood Count 3.92 Miln/mm3 (4.50-5.90); White Blood Count 8.2 Thou/mm3 (3.8-10.6)
[2024-12-29] MEDS: cefTRIAXone 1,000 MG, LIDOCAINE 1% 20 ML 2.1 ML IM (14:56)
[2024-12-29 15:20] LABS: Alanine Aminotransferase 21 U/L (10-49); Albumin, Serum 4.4 gm/dL (3.4-4.8); Albumin/Globulin Ratio 1.8 (1.2-2.2); Alkaline Phosphatase 98 U/L (46-116); Anion Gap 6 (7-16); Aspartate Amino Transferase 25 U/L (0-34); BUN/Creatinine Ratio 24 Ratio (12-20); Bilirubin,Total 0.2 mg/dL (0.3-1.2); Blood Urea Nitrogen 24 mg/dL (9-23); Calcium 9.6 mg/dL (8.3-10.6); Calcium (Corrected) 9.6 mg/dL (8.5-10.1); Carbon Dioxide 26.6 mMol/L (20.0-31.0); Chloride 111 mMol/L (98-107); Creatinine (Component) 1.0 mg/dL (0.6-1.3); Estimated Creatinine Clearance 73.7 mL/min (>60); Globulin 2.4 gm/dL (2.3-3.5); Glucose 98 mg/dL (74-106); Lipase 48 U/L (12-53); Osmolality,Calculated 290 (275-295); Potassium 4.8 mMol/L (3.4-5.1); Sodium 144 mMol/L (136-145); Total Protein 6.8 gm/dL (5.7-8.2); eGFR > 60 See Note
[2024-12-29] MEDS: HYDROcodone/APAP 5/325 TABLET 1 TAB PO (17:27)
--- NOTE | 2024-12-29 18:59 | PD.EDADULT ---
ED General RME/HPI General Chief complaint: Urogenital-Male Stated complaint: NEED PAIN MEDICATION, URINE LIKE SYRUP Time Seen by Provider: 12/29/24 14:26 Arrival date/time: 12/29/24 14:02 RME / HPI RME / HPI narrative: 64 y/o male with extensive PMHx who comes in for evaluation for bladder pain. Pt has come to the ED for similar episodes in the past. Of note patient was in the emergency room about 12 hours prior and had eloped. He is requesting pain medicine he apparently has a urology appointment in [place] in about 2 weeks. He is requesting pain medicine at this time. Denies any fever or chills. He says that he is going to stay and not leave the emergency room. Related Data Previous Rx's ?Medication ?Instructions ?Recorded hydrocodone 5 mg-acetaminophen 325 1 tab PO BID PRN pain #10 tabs 09/20/24 mg tablet ibuprofen 800 mg tablet 800 mg PO TID PRN pain #30 tabs 09/20/24 tamsulosin 0.4 mg capsule (Flomax) 0.4 mg PO QDAY #20 caps 10/01/24 acetaminophen 300 mg-codeine 30 mg 1 tab PO Q8H PRN pain #20 tabs 10/26/24 tablet acetaminophen 300 mg-codeine 30 mg 1 tab PO Q8H PRN pain #20 tabs 10/26/24 tablet hydrocodone 5 mg-acetaminophen 325 1 tab PO BID PRN pain #6 tabs 10/29/24 mg tablet ketorolac 10 mg tablet 10 mg PO Q8H #10 tabs 11/02/24 hydrocodone 5 mg-acetaminophen 325 1 tab PO BID PRN pain #14 tabs 11/09/24 mg tablet acetaminophen 300 mg-codeine 30 mg 1 tab PO Q8H PRN pain #20 tabs 11/11/24 tablet ibuprofen 600 mg tablet 600 mg PO Q6H PRN pain #30 tabs 11/11/24 acetaminophen 300 mg-codeine 30 mg 1 tab PO Q8H PRN pain #20 tabs 12/14/24 tablet tamsulosin 0.4 mg capsule (Flomax) 0.4 mg PO QDAY #20 caps 12/14/24 ketorolac 10 mg tablet 10 mg PO Q6H PRN pain #30 tabs 12/18/24 hydrocodone 5 mg-acetaminophen 325 1 tab PO BID PRN pain #10 tabs 12/26/24 mg tablet hydrocodone 5 mg-acetaminophen 325 1 tab PO BID PRN pain #10 tabs 12/27/24 mg tablet ketorolac 10 mg tablet 10 mg PO BID PRN pain 5 days #10 12/27/24 tabs ciprofloxacin HCl 500 mg tablet 500 mg PO BID #14 tabs 12/28/24 (Cipro) sulfamethoxazole 800 1 tab PO BID 1 week #14 tabs 12/29/24 mg-trimethoprim 160 mg tablet (Bactrim DS) Allergies Allergy/AdvReac Type Severity Reaction Status Date / Time No Known Allergies Allergy Verified 12/29/24 14:04 Review of Systems Review of Systems Narrative Review of Systems: Constitutional: No fever, chills, fatigue, weakness, weight loss HEENT: No eye pain, vision loss, ear pain, hearing loss, dysphagia, Cardiovascular: No chest pain, palpitations, edema, pain with walking Respiratory: No cough, shortness of breath, wheezing GI: No NVD, abdominal pain, constipation, blood in stool, loss of appetite, heartburn : + Bladder pain Extremities: No presence of pitting edema MSK: No back pain, joint pain, joint swelling Neuro: No dizziness, numbness, weakness, headaches, seizures, tremors Psych: No anxiety, depression ED Exam Narrative Physical exam: General: AAOx3, NAD, disheleved, HEENT: Moist mucous membranes, conjunctiva clear, EOMI, PERRLA, poor dentition Cardiovascular: S1, S2, radial pulses +2 bilat, RRR Pulmonary: CTAB bilat no cough, no wheezing GI: No tenderness to light or deep palpitation, no guarding, rigidity, rebound tenderness or distension : Melgar catheter intact, puslike drainage noted on the catheter bag, tenderness to the suprapubic area nondistended Extremities: No presence of trace or pitting edema in lower extremities bilaterally, dorsalis pedis pulses +2 bilaterally Neuro: AAOx3, no focal motor or sensory deficits in the UE or LE bilat Psych: Somewhat cooperative Course Quality Measures none Orders Category Date Time Status CT abdomen pelvis wo con Stat Exams 12/29/24 14:33 Completed CBC Stat Lab 12/29/24 14:40 Completed CMP [Comprehensive Metabolic Panel] Stat Lab 12/29/24 14:40 Completed Drug Screen,Urine Stat Lab 12/29/24 19:57 Ordered Lipase Stat Lab 12/29/24 14:40 Completed HYDROcodone*/APAP 5/325 [[place] 5/325] Med 12/29/24 16:21 Discontinued 1 tab PO X1 ONE Ketorolac Inj [Toradol Inj] Med 12/29/24 18:57 Discontinued 30 mg IM X1 ONE cefTRIAXone [Rocephin] 1,000 mg Med 12/29/24 14:34 Discontinued Lidocaine 1% 20 ml [Xylocaine 1% 20 ML] 2.1 ml IM X1 Vital Signs Vital signs: Vital Signs Temperature 98.5 F 12/29/24 14:23 Pulse Rate 99 12/29/24 14:23 Respiratory Rate 18 12/29/24 14:23 Blood Pressure 145/76 H 12/29/24 14:23 Pulse Oximetry (%) 100 12/29/24 14:23 Oxygen Delivery Method Room Air 12/29/24 14:23 Discharge Plan Plan Patient Disposition: HOME (Self Care) Patient condition on transfer: Stable Prescriptions/Referrals Prescriptions/Med Rec: New sulfamethoxazole-trimethoprim [Bactrim DS] 800-160 mg tablet 1 tab PO BID 7 Days Qty: 14 0RF Rx Instructions: Take one tablet by mouth twice a day No Action tamsulosin [Flomax] 0.4 mg capsule 0.4 mg PO QDAY Qty: 20 0RF acetaminophen-codeine 300-30 mg tablet 1 tab PO Q8H PRN (Reason: pain) Qty: 20 0RF acetaminophen-codeine 300-30 mg tablet 1 tab PO Q8H PRN (Reason: pain) Qty: 20 0RF hydrocodone-acetaminophen 5-325 mg tablet 1 tab PO BID MDD 10 PRN (Reason: pain) Qty: 14 0RF ibuprofen 600 mg tablet 600 mg PO Q6H PRN (Reason: pain) Qty: 30 0RF acetaminophen-codeine 300-30 mg tablet 1 tab PO Q8H PRN (Reason: pain) Qty: 20 0RF ketorolac 10 mg tablet 10 mg PO BID PRN (Reason: pain) 5 Days Qty: 10 0RF hydrocodone-acetaminophen 5-325 mg tablet 1 tab PO BID MDD 10 PRN (Reason: pain) Qty: 10 0RF ibuprofen 800 mg tablet 800 mg PO TID PRN (Reason: pain) Qty: 30 0RF hydrocodone-acetaminophen 5-325 mg tablet 1 tab PO BID MDD 10 PRN (Reason: pain) Qty: 10 0RF hydrocodone-acetaminophen 5-325 mg tablet 1 tab PO BID MDD 10mg PRN (Reason: pain) Qty: 6 0RF ketorolac 10 mg tablet 10 mg PO Q8H Qty: 10 0RF Rx Instructions: maximum total duration of 5 days from all oral, intranasal, or parenteral formulations acetaminophen-codeine 300-30 mg tablet 1 tab PO Q8H PRN (Reason: pain) Qty: 20 0RF tamsulosin [Flomax] 0.4 mg capsule 0.4 mg PO QDAY Qty: 20 0RF ketorolac 10 mg tablet 10 mg PO Q6H PRN (Reason: pain) Qty: 30 0RF Rx Instructions: maximum total duration of 5 days from all oral, intranasal, or parenteral formulations hydrocodone-acetaminophen 5-325 mg tablet 1 tab PO BID MDD 10mg PRN (Reason: pain) Qty: 10 0RF ciprofloxacin HCl [Cipro] 500 mg tablet 500 mg PO BID Qty: 14 0RF Referrals: Parminder Lyles MD [Primary Care Provider, [facility]] - In 1 week Problem List Clinical Impression: Bladder pain, Chronic indwelling Melgar catheter, Cystitis Patient/Caregiver Discharge Instructions Discharge Activity: activity as tolerated Print Language: Romanian Stand Alone Forms: Latoya Award Info., Patient Portal Info Letter MDM Narrative MDM hospital course (for use when minimal MDM required): 2023 reviewed labs: Including CMP and CBC. CT abdomen pelvis shows large bladder calculi. Urinalysis shows signs of infection including pyuria, leukocyte esterase. At this point, patient is not septic and requiring emergent urologic services, will recommend patient to follow-up outpatient urology and to go to his urology appointment in [place]. Will give patient antibiotic upon discharge patient will need to follow-up with PCP for resulting of urine culture that was taken yesterday. Medication Administration(s) Medication Administration History Discontinued Medications Hydrocodone Bitart/Acetaminophen (Hydrocodone/Apap 5/325 Tablet) 1 tab PO X1 ONE Stop: 12/29/24 16:22 Last Admin: 12/29/24 17:27 Dose: 1 tab Documented By: Ceftriaxone Sodium 1,000 mg/ (Lidocaine HCl 2.1 ml) 0 mg IM X1 ONE Stop: 12/29/24 14:35 Last Admin: 12/29/24 14:56 Dose: 1,000 mg Documented By: Ketorolac Tromethamine (Ketorolac Inj 30 Mg/Ml Vial) 30 mg IM X1 ONE Stop: 12/29/24 18:58 Last Admin: 12/29/24 19:29 Dose: 30 mg Documented By: Diagnosis Diagnoses ruled out and/or further discussions: Cystitis, bladder calculus, pyelonephritis
[2024-12-29] MEDS: KETOROLAC INJ 30 MG/ML VIAL IM (19:29)
== END 2024-12-29 21:11 | disposition home or self-care (01) ==
PROVIDERS: Nurse Practitioner Family; Emergency Provider Emergency Medicine; PCP Family Medicine
DX: N30.90 Cystitis, unspecified without hematuria (principal); N21.0 Calculus in bladder; Z96.0 Presence of urogenital implants
CPT/HCPCS: 36415; 74176; 80053; 80307; 81001; 83690; 85025; 87086; 96372; 99284; J0696; J1885; J3490; A9270

== ENCOUNTER 2024-12-30 12:06 | Emergency (ER) | payer MEDICAID, SELFPAY ==
[2024-12-30 12:06] VITALS: BMI 22.8
[2024-12-30 13:33] VITALS: BP 123/65; PULSE 83; RESP 20; TEMP 36.6; O2SAT 99
--- NOTE | 2024-12-30 13:38 | PD.EDBACK ---
ED Back Injury Pain RME/HPI General Chief Complaint: Back Pain/Injury Stated Complaint: R BACK PAIN RADIATNG TO R GROIN Time Seen by Provider: 12/30/24 13:07 Arrival date/time: 12/30/24 12:06 This is a 64-year-old male that comes into the emergency room with complaints of back pain rating to his groin. Patient has a chronic Melgar catheter. Patient has been here several times but recently on December 28 had a workup again and had another CT scan. Patient supposed to have a follow-up with a urologist in [place] however he is having trouble with his insurance. Patient requesting pain medication. Patient states he does not want a more labs as he got labs done a day or 2 ago. Patient also had a CT scan. Related Data Previous Rx's ?Medication ?Instructions ?Recorded hydrocodone 5 mg-acetaminophen 325 1 tab PO BID PRN pain #10 tabs 09/20/24 mg tablet ibuprofen 800 mg tablet 800 mg PO TID PRN pain #30 tabs 09/20/24 tamsulosin 0.4 mg capsule (Flomax) 0.4 mg PO QDAY #20 caps 10/01/24 acetaminophen 300 mg-codeine 30 mg 1 tab PO Q8H PRN pain #20 tabs 10/26/24 tablet acetaminophen 300 mg-codeine 30 mg 1 tab PO Q8H PRN pain #20 tabs 10/26/24 tablet hydrocodone 5 mg-acetaminophen 325 1 tab PO BID PRN pain #6 tabs 10/29/24 mg tablet ketorolac 10 mg tablet 10 mg PO Q8H #10 tabs 11/02/24 hydrocodone 5 mg-acetaminophen 325 1 tab PO BID PRN pain #14 tabs 11/09/24 mg tablet acetaminophen 300 mg-codeine 30 mg 1 tab PO Q8H PRN pain #20 tabs 11/11/24 tablet ibuprofen 600 mg tablet 600 mg PO Q6H PRN pain #30 tabs 11/11/24 acetaminophen 300 mg-codeine 30 mg 1 tab PO Q8H PRN pain #20 tabs 12/14/24 tablet tamsulosin 0.4 mg capsule (Flomax) 0.4 mg PO QDAY #20 caps 12/14/24 ketorolac 10 mg tablet 10 mg PO Q6H PRN pain #30 tabs 12/18/24 hydrocodone 5 mg-acetaminophen 325 1 tab PO BID PRN pain #10 tabs 12/26/25 mg tablet hydrocodone 5 mg-acetaminophen 325 1 tab PO BID PRN pain #10 tabs 12/27/24 mg tablet ciprofloxacin HCl 500 mg tablet 500 mg PO BID #14 tabs 12/28/24 (Cipro) hydrocodone 5 mg-acetaminophen 325 2 tab PO Q8H PRN pain #20 tabs 12/29/25 mg tablet Allergies Allergy/AdvReac Type Severity Reaction Status Date / Time No Known Allergies Allergy Verified 01/09/25 14:41 Review of Systems Review of Systems Systems Reviewed: All systems reviewed, normal except as documented Past Medical History Past Medical History NEUROLOGIC: Negative Neurological Disorders or Seizures CARDIAC: Negative Cardiac Disorders or Congestive Heart Failure RESPIRATORY: Negative Chronic Obstructive Pulmonary Disease (COPD) or Asthma GENITOURINARY: Positive Genitourinary Disorders, Kidney Stones and Benign Prostatic Hyperplasia; Negative Renal Disease MUSCULOSKELETAL: Positive Musculoskeletal Disorders and Degenerative Joint Disease ENDOCRINE: Negative Diabetes Mellitus Type 1 or Diabetes Mellitus Type 2 HEMATOLOGIC: Negative Sickle Cell Disease OTHER HISTORY: Negative Blood Transfusions, Blood Transfusion Reaction or Anesthesia Reactions Social History SMOKING STATUS: Current every day smoker SUBSTANCE USE: does not use ED Exam Narrative Physical exam: VITAL SIGNS: Reviewed. GENERAL APPEARANCE: Alert and interactive, follows commands, no acute distress HEAD AND FACE: Non-traumatic. ENT: PERRL, conjuctiva pink and clear, eyelid no trauma, Mucous membrane moist. NECK: Supple, nontender, no nuchal rigidity. CHEST: No tenderness, no crepitus, no paradoxical movement, no retractions. LUNGS: breathing even and unlabored HEART: Regular rate, cap refill less than 2 seconds ABDOMEN: Soft, nondistended, no guarding, nontender NEUROLOGICAL: Gross motor function intact sensory function intact, Appropriate for age. MUSCULOSKELETAL: low back nontender, full range of motion. EXTREMITIES: No redness no swelling no skin breakdown on bilateral foot and leg. Distal neurovascular status intact bilateral foot SKIN: Color pink, dry Course Quality Measures none Orders Category Date Time Status HYDROcodone*/APAP 5/325 [[place] 5/325] Med 12/30/24 13:37 Discontinued 1 tab PO X1 ONE Ketorolac Inj [Toradol Inj] Med 12/30/24 13:37 Discontinued 30 mg IM X1 ONE Vital Signs Vital signs: Vital Signs Temperature 97.9 F 12/30/24 13:33 Pulse Rate 83 12/30/24 13:33 Respiratory Rate 20 12/30/24 13:33 Blood Pressure 123/65 12/30/24 13:33 Pulse Oximetry (%) 99 12/30/24 13:33 Oxygen Delivery Method Room Air 12/30/24 13:33 Back Pain / Injury MDM Narrative MDM Narrative:: pt given norco and toradol. Patient refuses to have his urinary catheter changed. Patient states he just wanted pain medication. Patient refused any blood tests or imaging. Patient states he has surgery scheduled January 16 with a urologist in [place]. he was instructed to follow up with primary provider in 1-2 days. Come back to ED if symptoms change or worsen Audieon dictation: Although this document has been carefully reviewed, there may still be some phonetic and other typographical errors. These errors are purely grammatical due to imperfections in the software program and should not be construed in any way to compromise the substance of the patient's medical care during this visit. Patient data External records reviewed:: [facility] previous records Clinical information provided by:: patient Social determinants that could affect healthcare access:: none Patient has the following chronic illnesses:: see note How is presenting disease/condition affected by chronic disease/condition?: no chronic disease Evaluation data The following diagnostics were reviewed and interpreted by me:: other (specify) (none ) Lab and/or radiology exams considered but not ordered:: none Interpretation Summary: see note Medications / Prescriptions Medications or Prescriptions considered but not ordered:: none Medication administrations:: Medication Administration History Discontinued Medications Hydrocodone Bitart/Acetaminophen (Hydrocodone/Apap 5/325 Tablet) 1 tab PO X1 ONE Stop: 12/30/24 13:38 Last Admin: 12/30/24 13:56 Dose: 1 tab Documented By: GABY Ketorolac Tromethamine (Ketorolac Inj 30 Mg/Ml Vial) 30 mg IM X1 ONE Stop: 12/30/24 13:38 Last Admin: 12/30/24 13:55 Dose: 30 mg Documented By: GABY see [facility] Consultations Consultation(s) initiated? (list below): No Diagnosis Most likely diagnosis given after review of the tests above:: chronic pain/kidney stone Admission Indicated Admission indicated?: not indicated Admission Request Was there a request for admission?: No Disposition Plan Disposition Plan: Discharge Discharge Attestation Discharge Attestation: The patient and all family members were given an opportunity to ask questions and understood the discharge instructions. Discharge instructions specifically effects, indications for sooner follow up or return to the emergency department, and the expected course of current diagnosis. Patient condition: Stable Discharge Plan Plan Patient Disposition: HOME (Self Care) Patient condition on transfer: Stable Prescriptions/Referrals Prescriptions/Med Rec: No Action tamsulosin [Flomax] 0.4 mg capsule 0.4 mg PO QDAY Qty: 20 0RF acetaminophen-codeine 300-30 mg tablet 1 tab PO Q8H PRN (Reason: pain) Qty: 20 0RF acetaminophen-codeine 300-30 mg tablet 1 tab PO Q8H PRN (Reason: pain) Qty: 20 0RF hydrocodone-acetaminophen 5-325 mg tablet 1 tab PO BID MDD 10 PRN (Reason: pain) Qty: 14 0RF ibuprofen 600 mg tablet 600 mg PO Q6H PRN (Reason: pain) Qty: 30 0RF acetaminophen-codeine 300-30 mg tablet 1 tab PO Q8H PRN (Reason: pain) Qty: 20 0RF hydrocodone-acetaminophen 5-325 mg tablet 1 tab PO BID MDD 10 PRN (Reason: pain) Qty: 10 0RF ibuprofen 800 mg tablet 800 mg PO TID PRN (Reason: pain) Qty: 30 0RF hydrocodone-acetaminophen 5-325 mg tablet 1 tab PO BID MDD 10 PRN (Reason: pain) Qty: 10 0RF hydrocodone-acetaminophen 5-325 mg tablet 1 tab PO BID MDD 10mg PRN (Reason: pain) Qty: 6 0RF ketorolac 10 mg tablet 10 mg PO Q8H Qty: 10 0RF Rx Instructions: maximum total duration of 5 days from all oral, intranasal, or parenteral formulations acetaminophen-codeine 300-30 mg tablet 1 tab PO Q8H PRN (Reason: pain) Qty: 20 0RF tamsulosin [Flomax] 0.4 mg capsule 0.4 mg PO QDAY Qty: 20 0RF ketorolac 10 mg tablet 10 mg PO Q6H PRN (Reason: pain) Qty: 30 0RF Rx Instructions: maximum total duration of 5 days from all oral, intranasal, or parenteral formulations hydrocodone-acetaminophen 5-325 mg tablet 1 tab PO BID MDD 10mg PRN (Reason: pain) Qty: 10 0RF ciprofloxacin HCl [Cipro] 500 mg tablet 500 mg PO BID Qty: 14 0RF hydrocodone-acetaminophen 5-325 mg tablet 2 tab PO Q8H MDD 6 PRN (Reason: pain) Qty: 20 0RF Referrals: Parminder Lyles MD [Primary Care Provider, [facility]] - In 1 week Problem List Clinical Impression: Chronic indwelling Melgar catheter, Bladder calculi Patient/Caregiver Discharge Instructions Discharge Activity: activity as tolerated Education Materials: Anatomy of the Male Urinary Tract, ED Melgar Catheter, Care Additional Instructions: Sinew current antibiotics. Please follow-up with urologist as scheduled. Come back to the emergency room symptoms change or worsen. Make a follow-up appointment with primary provider. Print Language: Latvian Stand Alone Forms: Latoya Award Info., Patient Portal Info Letter PA/[employer] Supervising Physician ALPHONSO/[employer] Supervising Physician: dave
[2024-12-30] MEDS: KETOROLAC INJ 30 MG/ML VIAL IM (13:55)
[2024-12-30] MEDS: HYDROcodone/APAP 5/325 TABLET 1 TAB PO (13:56)
== END 2024-12-30 14:09 | disposition home or self-care (01) ==
PROVIDERS: Emergency Provider Emergency Medicine; PCP Family Medicine
DX: N21.0 Calculus in bladder (principal); F17.210 Nicotine dependence, cigarettes, uncomplicated; Z96.0 Presence of urogenital implants
CPT/HCPCS: 96372; 99283; J1885; A9270

== ENCOUNTER 2025-01-07 05:47 | Emergency (ER) | payer MEDICAID, SELFPAY ==
[2025-01-07 05:51] VITALS: PULSE 102; RESP 16; O2SAT 98; BMI 22.8
[2025-01-07 06:00] VITALS: BP 149/76; PULSE 96; RESP 18; TEMP 36.7; O2SAT 98
--- NOTE | 2025-01-07 06:18 | PD.EDRME ---
Rapid Medical Screening Exam E Arrival date/time: 01/07/25 05:47 Chief Complaint: Abdominal Pain Time Seen by Provider: 01/07/25 06:07 Vital signs: Vital Signs Temperature 98.0 F 01/07/25 06:00 Pulse Rate 96 01/07/25 06:00 Respiratory Rate 18 01/07/25 06:00 Blood Pressure 149/76 H 01/07/25 06:00 Pulse Oximetry (%) 98 01/07/25 06:00 Oxygen Delivery Method Room Air 01/07/25 06:00 Patient states he has got an acute exacerbation of his chronic abdominal pain denies nausea vomiting diarrhea urinary symptoms. Patient states that his Melgar bag is only half full as well. Vital signs reviewed by provider: Yes
[2025-01-07] MEDS: KETOROLAC INJ 30 MG/ML VIAL IM (06:26)
--- NOTE | 2025-01-07 06:33 | PC.NURSE ---
WHILE THIS NURSE WAS SPEAKING WITH ANOTHER PATIENT, THIS PATIENT STATED I'M GOING TO GO AHEAD AND GO. PATIENT PROCEED TO EXIT THE ED LOBBY AND WALKED AWAY.
== END 2025-01-07 06:46 | disposition left against medical advice (07) ==
LOC: SERX 06:30
PROVIDERS: Emergency Provider Family Medicine; PCP Family Medicine
DX: Z53.21 Procedure and treatment not carried out due to patient leaving prior to being seen by health care provider (principal)
CPT/HCPCS: 80053; 81001; 83690; 85025; 96372; 99282; J1885

== ENCOUNTER 2025-01-07 06:53 | Emergency (ER) | payer MEDICAID, SELFPAY ==
[2025-01-07 06:54] VITALS: BMI 22.8
[2025-01-07 07:07] VITALS: BP 146/78; PULSE 95; RESP 19; TEMP 36.7; O2SAT 97
[2025-01-07] MEDS: LIDOCAINE JELLY 2% (Urojet) 10 ML TUBE TOP (07:48)
--- NOTE | 2025-01-07 08:03 | PC.NURSE ---
SAINI CATHETER CHANGED. SAINI 16FR 10ML BALLOON INSERTED W/O DIFFICULTY; UROGEL INJECTED INTO PENIS PRIOR TO SAINI INSERTION. PT TOLERATED WELL. SAINI DRAINING CLOUDY YELLOW URINE W/ SEDIMENT.
--- NOTE | 2025-01-07 08:08 | PC.NURSE ---
PT DID NOT WANT TO WAIT FOR DISCHARGE INSTRUCTIONS. PT LEFT W/O LAB WORK BEING DONE. HE SAID ONLY 9 MORE DAYS UNTIL MY SURGERY.
--- NOTE | 2025-01-07 08:21 | EDNOTE_ITS ---
ED Male Genitalurinary RME/HPI General Chief complaint: Urogenital-Male Stated complaint: NEEDS TURNER CHANGED, TURNER LEAKING Time Seen by Provider: 01/07/25 07:06 Arrival date/time: 01/07/25 06:53 RME / HPI RME / HPI Narrative: 64-year-old male presents to the ER requesting Turner catheter change, patient was seen about 2 hours prior requesting a pain shot , as well as his bladder feels full and like its not draining appropriately. Denies fever, vomit, hematuria. Patient has a urology appointment tomorrow for his existing bladder calculi which were noted on 12/29/24. Related Data Previous Rx's ?Medication ?Instructions ?Recorded hydrocodone 5 mg-acetaminophen 325 1 tab PO BID PRN pa in #10 tabs 09/20/24 mg tablet ibuprofen 800 mg tablet 800 mg PO TID PRN pain #30 t abs 09/20/24 tamsulosin 0.4 mg capsule (Flomax) 0.4 mg PO QDAY #20 caps 10/01/24 acetaminophen 300 mg-codeine 30 mg 1 tab PO Q8H PRN pa in #20 tabs 10/26/24 tablet acetaminophen 300 mg-codeine 30 mg 1 tab PO Q8H PRN pa in #20 tabs 10/26/24 tablet hydrocodone 5 mg-acetaminophen 325 1 tab PO BID PRN pa in #6 tabs 10/29/24 mg tablet ketorolac 10 mg tablet 10 mg PO Q8H #10 tabs hydrocodone 5 mg-acetaminophen 325 1 tab PO BID PRN pa in #14 tabs 11/09/24 mg tablet acetaminophen 300 mg-codeine 30 mg 1 tab PO Q8H PRN pa in #20 tabs 11/11/24 tablet ibuprofen 600 mg tablet 600 mg PO Q6H PRN pain #30 t abs 11/11/24 acetaminophen 300 mg-codeine 30 mg 1 tab PO Q8H PRN pa in #20 tabs 12/14/24 tablet tamsulosin 0.4 mg capsule (Flomax) 0.4 mg PO QDAY #20 caps 12/14/24 ketorolac 10 mg tablet 10 mg PO Q6H PRN pain #30 ta bs 12/18/24 hydrocodone 5 mg-acetaminophen 325 1 tab PO BID PRN pa in #10 tabs 12/26/ mg tablet hydrocodone 5 mg-acetaminophen 325 1 tab PO BID PRN pa in #10 tabs 12/27/24 mg tablet ciprofloxacin HCl 500 mg tablet 500 mg PO BID #14 tabs 12/28/24 (Cipro) hydrocodone 5 mg-acetaminophen 325 2 tab PO Q8H PRN pa in #20 tabs 12/29/ mg tablet Allergies Allergy/AdvReac Type Severity Reaction Status Date / Time No Known Allergies Allergy Verified 01/07/25 06:54 ED Exam Narrative Physical exam: Constitutional: Vital Signs Reviewed. Well appearing. No acute distress. Not toxic appearing. Head: Normocephalic, atraumatic. Eyes: Conjunctiva clear. ENT: Mucous membranes moist. Neck: Trachea midline. Normal range of motion. No nuchal rigidity. Respiratory: Normal effort. No respiratory distress or accessory muscle use. Abdomen: Bladder distention. No gaurding or rebound, soft, NTTP through out. No CVA TTP B/L. Neuro: Alert and oriented. Speech normal. No focal gross motor or sensory deficits observed. Skin: Warm, dry, normal color. :Urine in turner bag is yellow Psych: Pleasant. Normal affect. Cooperative. Course Quality Measures none Orders Category Date Time Status CMP [Comprehensive Metabolic Panel] Stat Lab 01/07/25 07:57 Ordered Lipase Stat Lab 01/07/25 07:57 Ordered Lidocaine Jelly 2% Urojet [Xylocaine Jelly 2% Urojet] Med 01/07/25 07:38 Discontinued See Dose Instructions TOP X1 ONE Vital Signs Vital signs: Vital Signs Temperature 98.0 F 01/07/25 07:07 Pulse Rate 95 01/07/25 07:07 Respiratory Rate 19 01/07/25 07:07 Blood Pressure 146/78 H 01/07/25 07:07 Pulse Oximetry (%) 97 01/07/25 07:07 Oxygen Delivery Method Room Air 01/07/25 07:07 Urogenital - Male Patient data External records reviewed:: [facility] previous records Clinical information provided by:: patient Social determinants that could affect healthcare access:: other (specify) Patient has the following chronic illnesses:: CT scan on ? ? which did not have any hydronephrosis at that time however it showed large bladder calculi. Patient's lab work at that time additionally noted a minimally elevated BUN at 25 however creatinine was within normal limits, UA was concerning for a UTI which grew out Staph saprophyticus. Pt was given a shot of cetriaxone at that time and advised to f/u with PCP. How is presenting disease/condition affected by chronic disease/condition?: caused by Evaluation data The following diagnostics were reviewed and interpreted by me:: other (specify) Lab and/or radiology exams considered but not ordered:: Patient refused labs and imaging Interpretation Summary: Patient refused Medications / Prescriptions Medications or Prescriptions considered but not ordered:: Patient eloped Medication administrations:: Medication Administration History Discontinued Medications Lidocaine HCl (Lidocaine Jelly 2% (Urojet) 10 Ml Tube) 0 ml TOP X1 ONE Stop: 01/07/25 07:39 Last Admin: 01/07/25 07:48 Dose: 10 ml Documented By: LP As noted Consultations Consultation(s) initiated? (list below): No Diagnosis Urogenital Male Differential Diagnosis: urinary tract infection, prostatitis and acute retention of urine Most likely diagnosis given after review of the tests above:: Acute urinary retention secondary to Turner catheter malposition versus bladder calculi Admission Indicated Admission indicated?: not indicated Admission Request Was there a request for admission?: No Disposition Plan Disposition Plan: other (specify) Discharge Plan Plan Patient Disposition: Elopement Prescriptions/Referrals Prescriptions/Med Rec: No Action tamsulosin [Flomax] 0.4 mg capsule 0.4 mg PO QDAY Qty: 20 0RF acetaminophen-codeine 300-30 mg tablet 1 tab PO Q8H PRN (Reason: pain) Qty: 20 0RF acetaminophen-codeine 300-30 mg tablet 1 tab PO Q8H PRN (Reason: pain) Qty: 20 0RF hydrocodone-acetaminophen 5-325 mg tablet 1 tab PO BID MDD 10 PRN (Reason: pain) Qty: 14 0RF ibuprofen 600 mg tablet 600 mg PO Q6H PRN (Reason: pain) Qty: 30 0RF acetaminophen-codeine 300-30 mg tablet 1 tab PO Q8H PRN (Reason: pain) Qty: 20 0RF hydrocodone-acetaminophen 5-325 mg tablet 1 tab PO BID MDD 10 PRN (Reason: pain) Qty: 10 0RF ibuprofen 800 mg tablet 800 mg PO TID PRN (Reason: pain) Qty: 30 0RF hydrocodone-acetaminophen 5-325 mg tablet 1 tab PO BID MDD 10 PRN (Reason: pain) Qty: 10 0RF hydrocodone-acetaminophen 5-325 mg tablet 1 tab PO BID MDD 10mg PRN (Reason: pain) Qty: 6 0RF ketorolac 10 mg tablet 10 mg PO Q8H Qty: 10 0RF Rx Instructions: maximum total duration of 5 days from all oral, intranasal, or parenteral formulations acetaminophen-codeine 300-30 mg tablet 1 tab PO Q8H PRN (Reason: pain) Qty: 20 0RF tamsulosin [Flomax] 0.4 mg capsule 0.4 mg PO QDAY Qty: 20 0RF ketorolac 10 mg tablet 10 mg PO Q6H PRN (Reason: pain) Qty: 30 0RF Rx Instructions: maximum total duration of 5 days from all oral, intranasal, or parenteral formulations hydrocodone-acetaminophen 5-325 mg tablet 1 tab PO BID MDD 10mg PRN (Reason: pain) Qty: 10 0RF ciprofloxacin HCl [Cipro] 500 mg tablet 500 mg PO BID Qty: 14 0RF hydrocodone-acetaminophen 5-325 mg tablet 2 tab PO Q8H MDD 6 PRN (Reason: pain) Qty: 20 0RF Referrals: Parminder Lyles MD [Primary Care Provider, Family Practice] - In 1 week Problem List Clinical Impression: Acute urinary retention Patient/Caregiver Discharge Instructions Print Language: Lao Stand Alone Forms: Latoya Award Info., Patient Portal Info Letter
== END 2025-01-07 08:10 | disposition left against medical advice (07) ==
PROVIDERS: Emergency Provider Family Medicine; PCP Family Medicine
DX: R33.9 Retention of urine, unspecified (principal)
CPT/HCPCS: 80053; 81001; 83690; 85025; 87086; 99282

== ENCOUNTER 2025-01-07 19:06 | Emergency (ER) | payer MEDICAID, SELFPAY ==
[2025-01-07 19:07] VITALS: BMI 22.8
[2025-01-07 19:23] VITALS: BP 141/83; PULSE 99; RESP 20; TEMP 37; O2SAT 97
--- NOTE | 2025-01-07 19:37 | EDNOTE_ITS ---
ED Male Genitalurinary RME/HPI General Chief complaint: Urogenital-Male Stated complaint: NEEDS SAINI REPLACED Time Seen by Provider: 01/07/25 19:07 Arrival date/time: 01/07/25 19:06 This is a case of 65-year-old male with history of urinary retention and kidney stone with multiple visit due to Saini catheter malfunction patient stated that his Saini catheter was pulled out and asking to replace the Saini catheter patient denies any urinary symptoms denies any dysuria or blood in the urine abdominal pain flank pain fever chills nausea vomiting Limitations: no limitations Related Data Previous Rx's ?Medication ?Instructions ?Recorded hydrocodone 5 mg-acetaminophen 325 1 tab PO BID PRN pa in #10 tabs 09/20/ mg tablet ibuprofen 800 mg tablet 800 mg PO TID PRN pain #30 t abs 09/20/24 tamsulosin 0.4 mg capsule (Flomax) 0.4 mg PO QDAY #20 caps 10/01/24 acetaminophen 300 mg-codeine 30 mg 1 tab PO Q8H PRN pa in #20 tabs 10/26/24 tablet acetaminophen 300 mg-codeine 30 mg 1 tab PO Q8H PRN pa in #20 tabs 10/26/24 tablet hydrocodone 5 mg-acetaminophen 325 1 tab PO BID PRN pa in #6 tabs 10/29/24 mg tablet ketorolac 10 mg tablet 10 mg PO Q8H #10 tabs hydrocodone 5 mg-acetaminophen 325 1 tab PO BID PRN pa in #14 tabs 11/09/24 mg tablet acetaminophen 300 mg-codeine 30 mg 1 tab PO Q8H PRN pa in #20 tabs 11/11/24 tablet ibuprofen 600 mg tablet 600 mg PO Q6H PRN pain #30 t abs 11/11/24 acetaminophen 300 mg-codeine 30 mg 1 tab PO Q8H PRN pa in #20 tabs 12/14/24 tablet tamsulosin 0.4 mg capsule (Flomax) 0.4 mg PO QDAY #20 caps 12/14/24 ketorolac 10 mg tablet 10 mg PO Q6H PRN pain #30 ta bs 12/18/24 hydrocodone 5 mg-acetaminophen 325 1 tab PO BID PRN pa in #10 tabs 12/26/24 mg tablet hydrocodone 5 mg-acetaminophen 325 1 tab PO BID PRN pa in #10 tabs 12/27/24 mg tablet ciprofloxacin HCl 500 mg tablet 500 mg PO BID #14 tabs 12/28/24 (Cipro) hydrocodone 5 mg-acetaminophen 325 2 tab PO Q8H PRN pa in #20 tabs 12/29/24 mg tablet Allergies Allergy/AdvReac Type Severity Reaction Status Date / Time No Known Allergies Allergy Verified 01/07/25 06:54 Review of Systems Review of Systems Systems Reviewed: All systems reviewed, normal except as documented Constitutional Constitutional: Reports system reviewed and no additional complaints, except as documented and Reports as per HPI Cardiovascular Cardiovascular: Reports system reviewed and no additional complaints, except as documented and Reports as per HPI Respiratory Respiratory: Reports system reviewed and no additional complaints, except as documented and Reports as per HPI Gastrointestinal Gastrointestinal: Reports system reviewed and no additional complaints, except as documented and Reports as per HPI Genitourinary Genitourinary: Reports system reviewed and no additional complaints, except as documented and Reports as per HPI Neurologic Neurologic: Reports system reviewed and no additional complaints, except as documented and Reports as per HPI Past Medical History Past Medical History NEUROLOGIC: Negative Neurological Disorders or Seizures CARDIAC: Negative Cardiac Disorders or Congestive Heart Failure RESPIRATORY: Negative Chronic Obstructive Pulmonary Disease (COPD) or Asthma GENITOURINARY: Positive Genitourinary Disorders, Kidney Stones and Benign Prostatic Hyperplasia; Negative Renal Disease MUSCULOSKELETAL: Positive Musculoskeletal Disorders and Degenerative Joint Disease ENDOCRINE: Negative Diabetes Mellitus Type 1 or Diabetes Mellitus Type 2 HEMATOLOGIC: Negative Sickle Cell Disease OTHER HISTORY: Negative Blood Transfusions, Blood Transfusion Reaction or Anesthesia Reactions Social History SMOKING STATUS: Current some day smoker SUBSTANCE USE: does not use ED Exam General Limitations: Present no limitations General appearance: Present alert, in no apparent distress and other Head Head exam: Present atraumatic, normocephalic and normal inspection Eye Eye exam: Present normal appearance, PERRL and EOMI ENT ENT exam: Present normal exam, normal oropharynx and mucous membranes moist Neck Neck exam: Present normal inspection, full ROM and trachea midline; Absent tenderness, meningismus, lymphadenopathy or thyromegaly Chest Chest inspection: Present normal inspection and symmetric chest wall rise; Absent tenderness Respiratory Respiratory exam: Present normal lung sounds bilaterally; Absent respiratory distress, wheezes, stridor, accessory muscle use or prolonged expiratory phase Cardiovascular Cardiovascular exam: Present regular rate, normal rhythm and normal heart sounds; Absent bradycardia, tachycardia, irregular rhythm, systolic murmur or diastolic murmur Abdominal Exam Abdominal exam: Present soft, normal bowel sounds and other (No CVA tenderness bladder is not distended nor tender); Absent distention, tenderness, guarding, rebound, rigidity, diminished bowel sounds, hyperactive bowel sounds, hypoactive bowel sounds, organomegaly or hernia Extremities Exam Extremities exam: Present normal inspection and full ROM Back Exam Back exam: Present normal inspection and full ROM Neurological Exam Neurological exam: Present alert, oriented X3, CN II-XII intact, normal gait and reflexes normal; Absent motor sensory deficit Psychiatric Psychiatric exam: Present normal affect and normal mood Skin Skin exam: Present warm, dry, intact and normal color Course Quality Measures none Orders Category Date Time Status Saini [Urinary Catheter] QS Care 01/07/25 19:35 Active Vital Signs Vital signs: Vital Signs Temperature 98.6 F 01/07/25 19:23 Pulse Rate 99 01/07/25 19:23 Respiratory Rate 20 01/07/25 19:23 Blood Pressure 141/83 H 01/07/25 19:23 Pulse Oximetry (%) 97 01/07/25 19:23 Oxygen Delivery Method Room Air 01/07/25 19:23 Oxygen saturation is 97% in room air Urogenital - Male MDM Narrative MDM Narrative:: This is a case of 65-year-old male with history of urinary retention and kidney stone with multiple visit due to Saini catheter malfunction patient stated that his Saini catheter was pulled out and asking to replace the Saini catheter patient denies any urinary symptoms denies any dysuria or blood in the urine abdominal pain flank pain fever chills nausea vomiting physical examination patient is awake alert oriented not in distress nontoxic looking well-hydrated well-nourished abdominal exam is benign send nonsurgical no guarding no rebound no rigidity no CVA tenderness bladder is not distended nor distended tender Saini catheter was inserted with no complication no blood in the Saini catheter noted output of urine 200 cc patient will follow-up with PCP and urologist for further evaluation and treatment of urinary retention recurrence persistent worsening symptoms ER return precaution is advised Saini catheter care was also advised Patient was discharged with comfortable condition walking with stable gait. Patient verbalized no further complains explained diagnosis and answered patient question. Patient is comfortable with the proposed management plan including the need to follow up with his/her primary care physician and any specialist if applicable Discussed patient for any urgent condition or worsening sx, He/She needed to go to emergency room immediately or call 911. Patient acknowledge the responsibility to follow up as instructed and to monitor her/his symptoms. For any persistence of the symptoms for more than 3-5 days return precaution advised. Discussed the result of the test and was given printed discharge instruction Patient data External records reviewed:: [facility] previous records Clinical information provided by:: patient Social determinants that could affect healthcare access:: none Patient has the following chronic illnesses:: None How is presenting disease/condition affected by chronic disease/condition?: no chronic disease Evaluation data The following diagnostics were reviewed and interpreted by me:: other (specify) (None) Lab and/or radiology exams considered but not ordered:: None Interpretation Summary: None Medications / Prescriptions Medications or Prescriptions considered but not ordered:: Given Medication administrations:: Given Consultations Consultation(s) initiated? (list below): No Diagnosis Urogenital Male Differential Diagnosis: acute retention of urine Most likely diagnosis given after review of the tests above:: Urinary retention Saini catheter malfunction Admission Indicated Admission indicated?: not indicated Explain why admission is indicated or not indicated:: Not indicated Admission Request Was there a request for admission?: No Admission Attestation Admission request attestation: Not indicated Disposition Plan Disposition Plan: Discharge Discharge Attestation Discharge Attestation: The patient and all family members were given an opportunity to ask questions and understood the discharge instructions. Discharge instructions specifically effects, indications for sooner follow up or return to the emergency department, and the expected course of current diagnosis. Patient condition: Stable Discharge Plan Plan Patient Disposition: HOME (Self Care) Prescriptions/Referrals Prescriptions/Med Rec: No Action tamsulosin [Flomax] 0.4 mg capsule 0.4 mg PO QDAY Qty: 20 0RF acetaminophen-codeine 300-30 mg tablet 1 tab PO Q8H PRN (Reason: pain) Qty: 20 0RF acetaminophen-codeine 300-30 mg tablet 1 tab PO Q8H PRN (Reason: pain) Qty: 20 0RF hydrocodone-acetaminophen 5-325 mg tablet 1 tab PO BID MDD 10 PRN (Reason: pain) Qty: 14 0RF ibuprofen 600 mg tablet 600 mg PO Q6H PRN (Reason: pain) Qty: 30 0RF acetaminophen-codeine 300-30 mg tablet 1 tab PO Q8H PRN (Reason: pain) Qty: 20 0RF hydrocodone-acetaminophen 5-325 mg tablet 1 tab PO BID MDD 10 PRN (Reason: pain) Qty: 10 0RF ibuprofen 800 mg tablet 800 mg PO TID PRN (Reason: pain) Qty: 30 0RF hydrocodone-acetaminophen 5-325 mg tablet 1 tab PO BID MDD 10 PRN (Reason: pain) Qty: 10 0RF hydrocodone-acetaminophen 5-325 mg tablet 1 tab PO BID MDD 10mg PRN (Reason: pain) Qty: 6 0RF ketorolac 10 mg tablet 10 mg PO Q8H Qty: 10 0RF Rx Instructions: maximum total duration of 5 days from all oral, intranasal, or parenteral formulations acetaminophen-codeine 300-30 mg tablet 1 tab PO Q8H PRN (Reason: pain) Qty: 20 0RF tamsulosin [Flomax] 0.4 mg capsule 0.4 mg PO QDAY Qty: 20 0RF ketorolac 10 mg tablet 10 mg PO Q6H PRN (Reason: pain) Qty: 30 0RF Rx Instructions: maximum total duration of 5 days from all oral, intranasal, or parenteral formulations hydrocodone-acetaminophen 5-325 mg tablet 1 tab PO BID MDD 10mg PRN (Reason: pain) Qty: 10 0RF ciprofloxacin HCl [Cipro] 500 mg tablet 500 mg PO BID Qty: 14 0RF hydrocodone-acetaminophen 5-325 mg tablet 2 tab PO Q8H MDD 6 PRN (Reason: pain) Qty: 20 0RF Referrals: Zoila Fournier PA-C [Primary Care Provider] - In 1 week Problem List Clinical Impression: Malfunction of Saini catheter, Urinary retention Patient/Caregiver Discharge Instructions Education Materials: ED Saini Catheter, Care, ED Urinary Retention, Male Additional Instructions: Follow-up with your primary care physician in 2 days for reevaluation and to be referred to urologist for further evaluation and treatment of your urinary retention recurrence persistent worsening symptoms or any emergent concern call 911 or go to the nearest emergency room Saini catheter care is advised Print Language: Yakut Stand Alone Forms: Latoya Award Info., Patient Portal Info Letter PA/CECILIA Supervising Physician PA/CECILIA Supervising Physician: Dr. Celina Morgan
[2025-01-07] MEDS: LIDOCAINE JELLY 2% (Urojet) 10 ML TUBE TOP (20:08)
== END 2025-01-07 20:19 | disposition home or self-care (01) ==
PROVIDERS: Emergency Provider Emergency Medicine; PCP Physician Assistant Medical
DX: T83.091A Other mechanical complication of indwelling urethral catheter, initial encounter (principal); Y73.8 Miscellaneous gastroenterology and urology devices associated with adverse incidents, not elsewhere classified; R33.9 Retention of urine, unspecified
CPT/HCPCS: 51702; 99284; A4314

== ENCOUNTER 2025-01-08 10:27 | Emergency (ER) | payer MEDICAID, SELFPAY ==
[2025-01-08 10:32] VITALS: BMI 22.8
[2025-01-08 10:51] VITALS: BP 149/90; PULSE 89; RESP 18; TEMP 36.6; O2SAT 100
--- NOTE | 2025-01-08 10:56 | EDNOTE_ITS ---
ED Male Genitalurinary RME/HPI General Chief complaint: Urogenital-Male Stated complaint: KIDNEY STONES FOR A LONG TIME PENDING SURGERY Time Seen by Provider: 01/08/25 10:42 Source: patient Arrival date/time: 01/08/25 10:27 64-year-old male with a history of bladder stones and kidney stones presents to the emergency room with a chief complaint of urethral pain. Patient has a scheduled urology surgery on 01/16/2025. Mode of arrival: ambulatory Limitations: no limitations Related Data Previous Rx's ?Medication ?Instructions ?Recorded hydrocodone 5 mg-acetaminophen 325 1 tab PO BID PRN pa in #10 tabs 09/20/ mg tablet ibuprofen 800 mg tablet 800 mg PO TID PRN pain #30 t abs 09/20/24 tamsulosin 0.4 mg capsule (Flomax) 0.4 mg PO QDAY #20 caps 10/01/24 acetaminophen 300 mg-codeine 30 mg 1 tab PO Q8H PRN pa in #20 tabs 10/26/24 tablet acetaminophen 300 mg-codeine 30 mg 1 tab PO Q8H PRN pa in #20 tabs 10/26/24 tablet hydrocodone 5 mg-acetaminophen 325 1 tab PO BID PRN pa in #6 tabs 10/29/24 mg tablet ketorolac 10 mg tablet 10 mg PO Q8H #10 tabs hydrocodone 5 mg-acetaminophen 325 1 tab PO BID PRN pa in #14 tabs 11/09/24 mg tablet acetaminophen 300 mg-codeine 30 mg 1 tab PO Q8H PRN pa in #20 tabs 11/11/24 tablet ibuprofen 600 mg tablet 600 mg PO Q6H PRN pain #30 t abs 11/11/24 acetaminophen 300 mg-codeine 30 mg 1 tab PO Q8H PRN pa in #20 tabs 12/14/24 tablet tamsulosin 0.4 mg capsule (Flomax) 0.4 mg PO QDAY #20 caps 12/14/24 ketorolac 10 mg tablet 10 mg PO Q6H PRN pain #30 ta bs 12/18/24 hydrocodone 5 mg-acetaminophen 325 1 tab PO BID PRN pa in #10 tabs 12/26/24 mg tablet hydrocodone 5 mg-acetaminophen 325 1 tab PO BID PRN pa in #10 tabs 12/27/24 mg tablet ciprofloxacin HCl 500 mg tablet 500 mg PO BID #14 tabs 12/28/24 (Cipro) hydrocodone 5 mg-acetaminophen 325 2 tab PO Q8H PRN pa in #20 tabs 12/29/24 mg tablet Allergies Allergy/AdvReac Type Severity Reaction Status Date / Time No Known Allergies Allergy Verified 01/08/25 10:33 Review of Systems Review of Systems Systems Reviewed: All systems reviewed, normal except as documented Constitutional Constitutional: Reports system reviewed and no additional complaints, except as documented, Denies fatigue, Denies fever(s), Denies headache(s) and Denies weakness Eyes Eyes: Reports system reviewed and no additional complaints, except as documented, Denies blurry vision and Denies change in vision ENT Ears, Nose, Mouth, and Throat: Reports system reviewed and no additional complaints, except as documented, Denies otalgia, Denies headache(s), Denies nasal congestion, Denies throat swelling and Denies vertigo Cardiovascular Cardiovascular: Reports system reviewed and no additional complaints, except as documented, Denies chest pain, Denies dyspnea and Denies dyspnea on exertion Respiratory Respiratory: Reports system reviewed and no additional complaints, except as documented, Denies chest congestion, Denies cough, Denies dyspnea, Denies dyspnea on exertion and Denies wheezing Gastrointestinal Gastrointestinal: Reports system reviewed and no additional complaints, except as documented, Denies abdominal pain, Denies cramping, Denies nausea and Denies vomiting Genitourinary Genitourinary: Reports system reviewed and no additional complaints, except as documented, Denies dysuria and Denies hematuria Musculoskeletal Musculoskeletal: Reports system reviewed and no additional complaints, except as documented and Denies back pain Integumentary/Breasts Skin/Breast: Reports system reviewed and no additional complaints, except as documented and Denies wounds Neurologic Neurologic: Reports system reviewed and no additional complaints, except as documented, Denies confusion, Denies headache(s), Denies lack of coordination, Denies vertigo and Denies weakness Psychiatric Psychiatric: Reports system reviewed and no additional complaints, except as documented, Denies anxiety, Denies confusion, Denies depression, Denies paranoia, Denies suicidal ideation and Denies tactile hallucinations Endocrine Endocrine: Reports system reviewed and no additional complaints, except as documented and Denies fatigue Hematologic/Lymphatic Hematologic/Lymphatic: Reports system reviewed and no additional complaints, except as documented and Denies lymphadenopathy Allergic/Immunologic Allergic/Immunologic: Reports system reviewed and no additional complaints, except as documented, Denies throat swelling, Denies urticaria and Denies wheezing Past Medical History Past Medical History NEUROLOGIC: Negative Neurological Disorders or Seizures CARDIAC: Negative Cardiac Disorders or Congestive Heart Failure RESPIRATORY: Negative Chronic Obstructive Pulmonary Disease (COPD) or Asthma GENITOURINARY: Positive Genitourinary Disorders, Kidney Stones and Benign Prostatic Hyperplasia; Negative Renal Disease MUSCULOSKELETAL: Positive Musculoskeletal Disorders and Degenerative Joint Disease ENDOCRINE: Negative Diabetes Mellitus Type 1 or Diabetes Mellitus Type 2 HEMATOLOGIC: Negative Sickle Cell Disease OTHER HISTORY: Negative Blood Transfusions, Blood Transfusion Reaction or Anesthesia Reactions Social History SMOKING STATUS: Current every day smoker SUBSTANCE USE: does not use ED Exam General Limitations: Present no limitations General appearance: Present alert and in no apparent distress Head Head exam: Present atraumatic Eye Eye exam: Present normal appearance, PERRL and EOMI ENT ENT exam: Present normal exam, normal oropharynx and mucous membranes moist Neck Neck exam: Present normal inspection, full ROM and trachea midline Chest Chest inspection: Present normal inspection and symmetric chest wall rise Respiratory Respiratory exam: Present normal lung sounds bilaterally Cardiovascular Cardiovascular exam: Present regular rate, normal rhythm and normal heart sounds Abdominal Exam Abdominal exam: Present soft and normal bowel sounds Extremities Exam Extremities exam: Present normal inspection and full ROM Back Exam Back exam: Present normal inspection and full ROM Neurological Exam Neurological exam: Present alert, oriented X3 and CN II-XII intact Psychiatric Psychiatric exam: Present normal affect and normal mood Skin Skin exam: Present warm, dry, intact and normal color Course Quality Measures none Orders Category Date Time Status Ketorolac Inj [Toradol Inj] Med 01/08/25 10:53 Discontinued 30 mg IM X1 ONE Vital Signs Vital signs: Vital Signs Temperature 98 F 01/08/25 10:51 Pulse Rate 89 01/08/25 10:51 Respiratory Rate 18 01/08/25 10:51 Blood Pressure 149/90 H 01/08/25 10:51 Pulse Oximetry (%) 100 01/08/25 10:51 Oxygen Delivery Method Room Air 01/08/25 10:51 Urogenital - Male MDM Narrative MDM Narrative:: 64-year-old male with a history of bladder stones and kidney stones presents to the emergency room with a chief complaint of urethral pain. Patient has a scheduled urology surgery on 01/16/2025. Patient is hemodynamically stable and in no apparent distress. Patient is afebrile nontachycardic not tachypneic Physical examination shows pain and tenderness to the patient's urethral site. Patient states he recently had a Melgar catheter changed. Patient states he has a scheduled urology surgery where they will fix the bladder stones and prostate issues. Patient states his surgery is on 01/16/2025 and he is just here to get some pain medication until that day. A shot of Toradol was given with significant improvement Patient was discharged and educated to follow-up with primary care provider in the next 24 to 48 hours and return to the emergency room for any evidence of worsening signs or symptoms Patient data External records reviewed:: [facility] previous records Clinical information provided by:: patient Social determinants that could affect healthcare access:: none Patient has the following chronic illnesses:: No chronic illness How is presenting disease/condition affected by chronic disease/condition?: no chronic disease Evaluation data The following diagnostics were reviewed and interpreted by me:: lab results and radiology exam(s) Lab and/or radiology exams considered but not ordered:: Labs and radiology exams considered and ordered Interpretation Summary: N/A Medications / Prescriptions Medications or Prescriptions considered but not ordered:: Medication given Medication administrations:: Medication Administration History Discontinued Medications Ketorolac Tromethamine (Ketorolac Inj 60 Mg/2 Ml Vial) 30 mg IM X1 ONE Stop: 01/08/25 10:54 Last Admin: 01/08/25 11:15 Dose: 30 mg Documented By: Medication given Consultations Consultation(s) initiated? (list below): No Diagnosis Urogenital Male Differential Diagnosis: urinary tract infection, prostatitis, acute retention of urine and other (Urethral pain) Most likely diagnosis given after review of the tests above:: Urethral pain Admission Indicated Admission indicated?: not indicated Admission Request Was there a request for admission?: No Disposition Plan Disposition Plan: Discharge Discharge Attestation Discharge Attestation: The patient and all family members were given an opportunity to ask questions and understood the discharge instructions. Discharge instructions specifically effects, indications for sooner follow up or return to the emergency department, and the expected course of current diagnosis. Patient condition: Stable Discharge Plan Plan Patient Disposition: HOME (Self Care) Discharge Disposition comment: Stable Prescriptions/Referrals Prescriptions/Med Rec: No Action tamsulosin [Flomax] 0.4 mg capsule 0.4 mg PO QDAY Qty: 20 0RF acetaminophen-codeine 300-30 mg tablet 1 tab PO Q8H PRN (Reason: pain) Qty: 20 0RF acetaminophen-codeine 300-30 mg tablet 1 tab PO Q8H PRN (Reason: pain) Qty: 20 0RF hydrocodone-acetaminophen 5-325 mg tablet 1 tab PO BID MDD 10 PRN (Reason: pain) Qty: 14 0RF ibuprofen 600 mg tablet 600 mg PO Q6H PRN (Reason: pain) Qty: 30 0RF acetaminophen-codeine 300-30 mg tablet 1 tab PO Q8H PRN (Reason: pain) Qty: 20 0RF hydrocodone-acetaminophen 5-325 mg tablet 1 tab PO BID MDD 10 PRN (Reason: pain) Qty: 10 0RF ibuprofen 800 mg tablet 800 mg PO TID PRN (Reason: pain) Qty: 30 0RF hydrocodone-acetaminophen 5-325 mg tablet 1 tab PO BID MDD 10 PRN (Reason: pain) Qty: 10 0RF hydrocodone-acetaminophen 5-325 mg tablet 1 tab PO BID MDD 10mg PRN (Reason: pain) Qty: 6 0RF ketorolac 10 mg tablet 10 mg PO Q8H Qty: 10 0RF Rx Instructions: maximum total duration of 5 days from all oral, intranasal, or parenteral formulations acetaminophen-codeine 300-30 mg tablet 1 tab PO Q8H PRN (Reason: pain) Qty: 20 0RF tamsulosin [Flomax] 0.4 mg capsule 0.4 mg PO QDAY Qty: 20 0RF ketorolac 10 mg tablet 10 mg PO Q6H PRN (Reason: pain) Qty: 30 0RF Rx Instructions: maximum total duration of 5 days from all oral, intranasal, or parenteral formulations hydrocodone-acetaminophen 5-325 mg tablet 1 tab PO BID MDD 10mg PRN (Reason: pain) Qty: 10 0RF ciprofloxacin HCl [Cipro] 500 mg tablet 500 mg PO BID Qty: 14 0RF hydrocodone-acetaminophen 5-325 mg tablet 2 tab PO Q8H MDD 6 PRN (Reason: pain) Qty: 20 0RF Problem List Clinical Impression: Pain in urethra Patient/Caregiver Discharge Instructions Additional Instructions: Please follow-up with your urologist in the next 24 to 48 hours Please keep your appointment for your surgery on 01/16/2025 For any evidence of worsening signs or symptoms return to the emergency room immediately Print Language: Senegalese Stand Alone Forms: Latoya Award Info., Work/School Release, Patient Portal Info Letter PA/CUSTOMER RESPONSE REPRESENTATIVE Supervising Physician ALPHONSO/CECILIA Supervising Physician: Dr. Spaulding
[2025-01-08] MEDS: KETOROLAC INJ 60 MG/2 ML VIAL 30 MG IM (11:15)
== END 2025-01-08 11:18 | disposition home or self-care (01) ==
LOC: SERX 11:28
PROVIDERS: Emergency Provider Nurse Practitioner Family; PCP Family Medicine
DX: N36.8 Other specified disorders of urethra (principal)
CPT/HCPCS: 96372; 99282; J1885

== ENCOUNTER 2025-01-09 14:39 | Emergency (ER) | payer MEDICAID, SELFPAY ==
[2025-01-09 14:47] VITALS: BP 129/74; PULSE 99; RESP 18; TEMP 37; O2SAT 98; BMI 22.8
[2025-01-09] MEDS: KETOROLAC INJ 60 MG/2 ML VIAL 30 MG IM (14:59)
[2025-01-09] MEDS: HYDROcodone/APAP 5/325 TABLET 1 TAB PO (15:00)
--- NOTE | 2025-01-09 15:06 | EDNOTE_ITS ---
ED Male Genitalurinary RME/HPI General Chief complaint: Urogenital-Male Stated complaint: SEVERE SUPRAPUBIC PAIN C/B BLADDER STONES Time Seen by Provider: 01/09/25 14:47 Source: patient Arrival date/time: 01/09/25 14:39 64-year-old male with a history of bladder stones presents to the emergency room with a chief complaint of urethral pain Mode of arrival: ambulatory Limitations: no limitations Related Data Previous Rx's ?Medication ?Instructions ?Recorded hydrocodone 5 mg-acetaminophen 325 1 tab PO BID PRN pa in #10 tabs 09/20/ mg tablet ibuprofen 800 mg tablet 800 mg PO TID PRN pain #30 t abs 09/20/24 tamsulosin 0.4 mg capsule (Flomax) 0.4 mg PO QDAY #20 caps 10/01/24 acetaminophen 300 mg-codeine 30 mg 1 tab PO Q8H PRN pa in #20 tabs 10/26/24 tablet acetaminophen 300 mg-codeine 30 mg 1 tab PO Q8H PRN pa in #20 tabs 10/26/24 tablet hydrocodone 5 mg-acetaminophen 325 1 tab PO BID PRN pa in #6 tabs 10/29/24 mg tablet ketorolac 10 mg tablet 10 mg PO Q8H #10 tabs hydrocodone 5 mg-acetaminophen 325 1 tab PO BID PRN pa in #14 tabs 11/09/24 mg tablet acetaminophen 300 mg-codeine 30 mg 1 tab PO Q8H PRN pa in #20 tabs 11/11/24 tablet ibuprofen 600 mg tablet 600 mg PO Q6H PRN pain #30 t abs 11/11/24 acetaminophen 300 mg-codeine 30 mg 1 tab PO Q8H PRN pa in #20 tabs 12/14/24 tablet tamsulosin 0.4 mg capsule (Flomax) 0.4 mg PO QDAY #20 caps 12/14/24 ketorolac 10 mg tablet 10 mg PO Q6H PRN pain #30 ta bs 12/18/24 hydrocodone 5 mg-acetaminophen 325 1 tab PO BID PRN pa in #10 tabs 12/26/24 mg tablet hydrocodone 5 mg-acetaminophen 325 1 tab PO BID PRN pa in #10 tabs 12/27/24 mg tablet ciprofloxacin HCl 500 mg tablet 500 mg PO BID #14 tabs 12/28/24 (Cipro) hydrocodone 5 mg-acetaminophen 325 2 tab PO Q8H PRN pa in #20 tabs 12/29/24 mg tablet Allergies Allergy/AdvReac Type Severity Reaction Status Date / Time No Known Allergies Allergy Verified 01/09/25 14:41 Review of Systems Review of Systems Systems Reviewed: All systems reviewed, normal except as documented Constitutional Constitutional: Reports system reviewed and no additional complaints, except as documented, Denies fatigue, Denies fever(s), Denies headache(s) and Denies weakness Eyes Eyes: Reports system reviewed and no additional complaints, except as documented, Denies blurry vision and Denies change in vision ENT Ears, Nose, Mouth, and Throat: Reports system reviewed and no additional complaints, except as documented, Denies otalgia, Denies headache(s), Denies nasal congestion, Denies throat swelling and Denies vertigo Cardiovascular Cardiovascular: Reports system reviewed and no additional complaints, except as documented, Denies chest pain, Denies dyspnea and Denies dyspnea on exertion Respiratory Respiratory: Reports system reviewed and no additional complaints, except as documented, Denies chest congestion, Denies cough, Denies dyspnea, Denies dyspnea on exertion and Denies wheezing Gastrointestinal Gastrointestinal: Reports system reviewed and no additional complaints, except as documented, Denies abdominal pain, Denies cramping, Denies nausea and Denies vomiting Genitourinary Genitourinary: Reports system reviewed and no additional complaints, except as documented, Denies dysuria and Denies hematuria Musculoskeletal Musculoskeletal: Reports system reviewed and no additional complaints, except as documented and Denies back pain Integumentary/Breasts Skin/Breast: Reports system reviewed and no additional complaints, except as documented and Denies wounds Neurologic Neurologic: Reports system reviewed and no additional complaints, except as documented, Denies confusion, Denies headache(s), Denies lack of coordination, Denies vertigo and Denies weakness Psychiatric Psychiatric: Reports system reviewed and no additional complaints, except as documented, Denies anxiety, Denies confusion, Denies depression, Denies paranoia, Denies suicidal ideation and Denies tactile hallucinations Endocrine Endocrine: Reports system reviewed and no additional complaints, except as documented and Denies fatigue Hematologic/Lymphatic Hematologic/Lymphatic: Reports system reviewed and no additional complaints, except as documented and Denies lymphadenopathy Allergic/Immunologic Allergic/Immunologic: Reports system reviewed and no additional complaints, except as documented, Denies throat swelling, Denies urticaria and Denies wheezing Past Medical History Past Medical History NEUROLOGIC: Negative Neurological Disorders or Seizures CARDIAC: Negative Cardiac Disorders or Congestive Heart Failure RESPIRATORY: Negative Chronic Obstructive Pulmonary Disease (COPD) or Asthma GENITOURINARY: Positive Genitourinary Disorders, Kidney Stones and Benign Prostatic Hyperplasia; Negative Renal Disease MUSCULOSKELETAL: Positive Musculoskeletal Disorders and Degenerative Joint Disease ENDOCRINE: Negative Diabetes Mellitus Type 1 or Diabetes Mellitus Type 2 HEMATOLOGIC: Negative Sickle Cell Disease OTHER HISTORY: Negative Blood Transfusions, Blood Transfusion Reaction or Anesthesia Reactions Social History SMOKING STATUS: Current every day smoker SUBSTANCE USE: does not use ED Exam General Limitations: Present no limitations General appearance: Present alert and in no apparent distress Head Head exam: Present atraumatic Eye Eye exam: Present normal appearance, PERRL and EOMI ENT ENT exam: Present normal exam, normal oropharynx and mucous membranes moist Neck Neck exam: Present normal inspection, full ROM and trachea midline Chest Chest inspection: Present normal inspection and symmetric chest wall rise Respiratory Respiratory exam: Present normal lung sounds bilaterally Cardiovascular Cardiovascular exam: Present regular rate, normal rhythm and normal heart sounds Abdominal Exam Abdominal exam: Present soft and normal bowel sounds Extremities Exam Extremities exam: Present normal inspection and full ROM Back Exam Back exam: Present normal inspection and full ROM Neurological Exam Neurological exam: Present alert, oriented X3 and CN II-XII intact Psychiatric Psychiatric exam: Present normal affect and normal mood Skin Skin exam: Present warm, dry, intact and normal color Course Quality Measures none Orders Category Date Time Status HYDROcodone*/APAP 5/325 [Rescue 5/325] Med 01/09/25 14:57 Discontinued 1 tab PO X1 ONE Ketorolac Inj [Toradol Inj] Med 01/09/25 14:49 Discontinued 30 mg IM X1 ONE Vital Signs Vital signs: Vital Signs Temperature 98.6 F 01/09/25 14:47 Pulse Rate 99 01/09/25 14:47 Respiratory Rate 18 01/09/25 14:47 Blood Pressure 129/74 01/09/25 14:47 Pulse Oximetry (%) 98 01/09/25 14:47 Oxygen Delivery Method Room Air 01/09/25 14:47 Urogenital - Male MDM Narrative MDM Narrative:: 64-year-old male with a history of bladder stones presents to the emergency room with a chief complaint of urethral pain Patient is hemodynamically stable and in no apparent distress Physical examination shows pain and tenderness to the urethra. The patient has an appointment with his urologist tomorrow as well as a scheduled surgery on 01/16/2025. Patient states he is just here to get some pain medication Patient was discharged and educated to follow-up with primary care provider in the next 24 to 48 hours and return to the emergency room for any evidence of worsening signs or symptoms Patient data External records reviewed:: [facility] previous records Clinical information provided by:: patient Social determinants that could affect healthcare access:: none Patient has the following chronic illnesses:: No chronic illness How is presenting disease/condition affected by chronic disease/condition?: no chronic disease Evaluation data The following diagnostics were reviewed and interpreted by me:: lab results and radiology exam(s) Lab and/or radiology exams considered but not ordered:: Labs and radiology exams considered and ordered Interpretation Summary: N/A Medications / Prescriptions Medications or Prescriptions considered but not ordered:: Medication given Medication administrations:: Medication Administration History Discontinued Medications Hydrocodone Bitart/Acetaminophen (Hydrocodone/Apap 5/325 Tablet) 1 tab PO X1 ONE Stop: 01/09/25 14:58 Last Admin: 01/09/25 15:00 Dose: 1 tab Documented By: LEOLA Ketorolac Tromethamine (Ketorolac Inj 60 Mg/2 Ml Vial) 30 mg IM X1 ONE Stop: 01/09/25 14:50 Last Admin: 01/09/25 14:59 Dose: 30 mg Documented By: GAGAN Medication given Consultations Consultation(s) initiated? (list below): No Diagnosis Urogenital Male Differential Diagnosis: urinary tract infection, prostatitis, acute retention of urine and other Most likely diagnosis given after review of the tests above:: Urethral pain Admission Indicated Admission indicated?: not indicated Admission Request Was there a request for admission?: No Disposition Plan Disposition Plan: Discharge Discharge Attestation Discharge Attestation: The patient and all family members were given an opportunity to ask questions and understood the discharge instructions. Discharge instructions specifically effects, indications for sooner follow up or return to the emergency department, and the expected course of current diagnosis. Patient condition: Stable Discharge Plan Plan Patient Disposition: HOME (Self Care) Discharge Disposition comment: Stable Prescriptions/Referrals Prescriptions/Med Rec: No Action tamsulosin [Flomax] 0.4 mg capsule 0.4 mg PO QDAY Qty: 20 0RF acetaminophen-codeine 300-30 mg tablet 1 tab PO Q8H PRN (Reason: pain) Qty: 20 0RF acetaminophen-codeine 300-30 mg tablet 1 tab PO Q8H PRN (Reason: pain) Qty: 20 0RF hydrocodone-acetaminophen 5-325 mg tablet 1 tab PO BID MDD 10 PRN (Reason: pain) Qty: 14 0RF ibuprofen 600 mg tablet 600 mg PO Q6H PRN (Reason: pain) Qty: 30 0RF acetaminophen-codeine 300-30 mg tablet 1 tab PO Q8H PRN (Reason: pain) Qty: 20 0RF hydrocodone-acetaminophen 5-325 mg tablet 1 tab PO BID MDD 10 PRN (Reason: pain) Qty: 10 0RF ibuprofen 800 mg tablet 800 mg PO TID PRN (Reason: pain) Qty: 30 0RF hydrocodone-acetaminophen 5-325 mg tablet 1 tab PO BID MDD 10 PRN (Reason: pain) Qty: 10 0RF hydrocodone-acetaminophen 5-325 mg tablet 1 tab PO BID MDD 10mg PRN (Reason: pain) Qty: 6 0RF ketorolac 10 mg tablet 10 mg PO Q8H Qty: 10 0RF Rx Instructions: maximum total duration of 5 days from all oral, intranasal, or parenteral formulations acetaminophen-codeine 300-30 mg tablet 1 tab PO Q8H PRN (Reason: pain) Qty: 20 0RF tamsulosin [Flomax] 0.4 mg capsule 0.4 mg PO QDAY Qty: 20 0RF ketorolac 10 mg tablet 10 mg PO Q6H PRN (Reason: pain) Qty: 30 0RF Rx Instructions: maximum total duration of 5 days from all oral, intranasal, or parenteral formulations hydrocodone-acetaminophen 5-325 mg tablet 1 tab PO BID MDD 10mg PRN (Reason: pain) Qty: 10 0RF ciprofloxacin HCl [Cipro] 500 mg tablet 500 mg PO BID Qty: 14 0RF hydrocodone-acetaminophen 5-325 mg tablet 2 tab PO Q8H MDD 6 PRN (Reason: pain) Qty: 20 0RF Problem List Clinical Impression: Pain in urethra Patient/Caregiver Discharge Instructions Additional Instructions: Please follow-up with your urologist tomorrow For any evidence of worsening signs or symptoms return to the emergency room immediately Print Language: Japanese Stand Alone Forms: Latoya Award Info., Patient Portal Info Letter PA/IMPORT EXPORT MANAGER Supervising Physician PA/IMPORT EXPORT MANAGER Supervising Physician: Dr. Gracia
== END 2025-01-09 15:05 | disposition home or self-care (01) ==
PROVIDERS: Emergency Provider Emergency Medicine; PCP Family Medicine
DX: N21.0 Calculus in bladder (principal)
CPT/HCPCS: 96372; 99282; J1885; A9270

== ENCOUNTER 2025-01-10 09:06 | Emergency (ER) | payer MEDICAID, SELFPAY ==
[2025-01-10 09:06] VITALS: BMI 22.8
[2025-01-10 09:15] VITALS: BP 153/79; PULSE 81; RESP 18; TEMP 36.6; O2SAT 99
[2025-01-10 09:16] VITALS: BMI 22.8
[2025-01-10] MEDS: KETOROLAC INJ 30 MG/ML VIAL 15 MG IM (09:34)
--- NOTE | 2025-01-10 09:48 | EDNOTE_ITS ---
ED Male Genitalurinary RME/HPI General Chief complaint: Abdominal Pain Stated complaint: I got kidney stones Time Seen by Provider: 01/10/25 09:13 Arrival date/time: 01/10/25 09:06 64-year-old male with a history of bladder stones presents to the emergency room with a chief complaint of urethral pain Limitations: no limitations Related Data Previous Rx's ?Medication ?Instructions ?Recorded hydrocodone 5 mg-acetaminophen 325 1 tab PO BID PRN pa in #10 tabs 09/20/ mg tablet ibuprofen 800 mg tablet 800 mg PO TID PRN pain #30 t abs 09/20/24 tamsulosin 0.4 mg capsule (Flomax) 0.4 mg PO QDAY #20 caps 10/01/24 acetaminophen 300 mg-codeine 30 mg 1 tab PO Q8H PRN pa in #20 tabs 10/26/24 tablet acetaminophen 300 mg-codeine 30 mg 1 tab PO Q8H PRN pa in #20 tabs 10/26/24 tablet hydrocodone 5 mg-acetaminophen 325 1 tab PO BID PRN pa in #6 tabs 10/29/24 mg tablet ketorolac 10 mg tablet 10 mg PO Q8H #10 tabs hydrocodone 5 mg-acetaminophen 325 1 tab PO BID PRN pa in #14 tabs 11/09/24 mg tablet acetaminophen 300 mg-codeine 30 mg 1 tab PO Q8H PRN pa in #20 tabs 11/11/24 tablet ibuprofen 600 mg tablet 600 mg PO Q6H PRN pain #30 t abs 11/11/24 acetaminophen 300 mg-codeine 30 mg 1 tab PO Q8H PRN pa in #20 tabs 12/14/24 tablet tamsulosin 0.4 mg capsule (Flomax) 0.4 mg PO QDAY #20 caps 12/14/24 ketorolac 10 mg tablet 10 mg PO Q6H PRN pain #30 ta bs 12/18/24 hydrocodone 5 mg-acetaminophen 325 1 tab PO BID PRN pa in #10 tabs 12/26/24 mg tablet hydrocodone 5 mg-acetaminophen 325 1 tab PO BID PRN pa in #10 tabs 12/27/24 mg tablet ciprofloxacin HCl 500 mg tablet 500 mg PO BID #14 tabs 12/28/24 (Cipro) hydrocodone 5 mg-acetaminophen 325 2 tab PO Q8H PRN pa in #20 tabs 12/29/24 mg tablet Allergies Allergy/AdvReac Type Severity Reaction Status Date / Time No Known Allergies Allergy Verified 01/09/25 14:41 Review of Systems Review of Systems Systems Reviewed: All systems reviewed, normal except as documented Constitutional Constitutional: Reports system reviewed and no additional complaints, except as documented, Denies fever(s) and Denies headache(s) Eyes Eyes: Reports system reviewed and no additional complaints, except as documented and Denies blurry vision ENT Ears, Nose, Mouth, and Throat: Reports system reviewed and no additional compla ints, except as documented, Denies headache(s), Denies nasal congestion and Denies nasal discharge Cardiovascular Cardiovascular: Reports system reviewed and no additional complaints, except as documented, Denies chest pain and Denies dyspnea Respiratory Respiratory: Reports system reviewed and no additional complaints, except as documented, Denies chest congestion, Denies cough and Denies dyspnea Gastrointestinal Gastrointestinal: Reports system reviewed and no additional complaints, except as documented and Denies abdominal pain Genitourinary Genitourinary: Reports system reviewed and no additional complaints, except as documented and Reports other (Urethral pain, bladder pain) Integumentary/Breasts Skin/Breast: Reports system reviewed and no additional complaints, except as documented and Denies rash Neurologic Neurologic: Reports system reviewed and no additional complaints, except as docu mented, Reports as per HPI and Denies headache(s) Past Medical History Past Medical History NEUROLOGIC: Negative Neurological Disorders or Seizures CARDIAC: Negative Cardiac Disorders or Congestive Heart Failure RESPIRATORY: Negative Chronic Obstructive Pulmonary Disease (COPD) or Asthma GENITOURINARY: Positive Genitourinary Disorders, Kidney Stones and Benign Prostatic Hyperplasia; Negative Renal Disease MUSCULOSKELETAL: Positive Musculoskeletal Disorders and Degenerative Joint Disease ENDOCRINE: Negative Diabetes Mellitus Type 1 or Diabetes Mellitus Type 2 HEMATOLOGIC: Negative Sickle Cell Disease OTHER HISTORY: Negative Blood Transfusions, Blood Transfusion Reaction or Anesthesia Reactions Social History SMOKING STATUS: Current every day smoker SUBSTANCE USE: does not use ED Exam General Limitations: Present no limitations General appearance: Present alert and in no apparent distress Head Head exam: Present atraumatic, normocephalic and normal inspection Eye Eye exam: Present normal appearance, PERRL and EOMI; Absent conjunctival injection ENT ENT exam: Present normal exam, normal oropharynx and mucous membranes moist Neck Neck exam: Present normal inspection, full ROM and trachea midline Chest Chest inspection: Present normal inspection and symmetric chest wall rise Respiratory Respiratory exam: Present normal lung sounds bilaterally Cardiovascular Cardiovascular exam: Present regular rate, normal rhythm and normal heart sounds Abdominal Exam Abdominal exam: Present soft and normal bowel sounds Extremities Exam Extremities exam: Present normal inspection and full ROM Back Exam Back exam: Present normal inspection and full ROM Neurological Exam Neurological exam: Present alert, oriented X3, CN II-XII intact, normal gait and reflexes normal; Absent motor sensory deficit Psychiatric Psychiatric exam: Present normal affect and normal mood Skin Skin exam: Present warm, dry, intact and normal color Course Quality Measures none Orders Category Date Time Status Ketorolac Inj [Toradol Inj] Med 01/10/25 09:24 Discontinued 15 mg IM X1 ONE Vital Signs Vital signs: Vital Signs Temperature 97.9 F 01/10/25 09:15 Pulse Rate 81 01/10/25 09:15 Respiratory Rate 18 01/10/25 09:15 Blood Pressure 153/79 H 01/10/25 09:15 Pulse Oximetry (%) 99 01/10/25 09:15 Oxygen Delivery Method Room Air 01/10/25 09:15 O2 saturation 99% room air within normal limits okay Urogenital - Male MDM Narrative MDM Narrative:: 64-year-old male with a history of bladder stones presents to the emergency room with a chief complaint of urethral pain Patient is hemodynamically stable and in no apparent distress The patient has an appointment with his urologist tomorrow as well as a scheduled surgery on 01/16/2025. Patient states he is just here to get some pain medication patient also reports he going to [facility] today to speak with scheduling staff Patient discharged home no distress follow-up with specialist and for worsening symptoms return immediately Patient data External records reviewed:: [facility] previous records Clinical information provided by:: patient Social determinants that could affect healthcare access:: substance use Patient has the following chronic illnesses:: See history How is presenting disease/condition affected by chronic disease/condition?: caused by Evaluation data The following diagnostics were reviewed and interpreted by me:: other (specify) Lab and/or radiology exams considered but not ordered:: Considered and not ordered Interpretation Summary: N/A Medications / Prescriptions Medications or Prescriptions considered but not ordered:: Given Medication administrations:: Medication Administration History Discontinued Medications Ketorolac Tromethamine (Ketorolac Inj 30 Mg/Ml Vial) 15 mg IM X1 ONE Stop: 01/10/25 09:25 Last Admin: 01/10/25 09:34 Dose: 15 mg Documented By: EF Given Consultations Consultation(s) initiated? (list below): No Diagnosis Urogenital Male Differential Diagnosis: urinary tract infection and inguinal hernia Most likely diagnosis given after review of the tests above:: Ureteral pain, bladder stones Admission Indicated Admission indicated?: not indicated Admission Request Was there a request for admission?: No Disposition Plan Disposition Plan: Discharge Discharge Attestation Discharge Attestation: The patient and all family members were given an opportunity to ask questions and understood the discharge instructions. Discharge instructions specifically effects, indications for sooner follow up or return to the emergency department, and the expected course of current diagnosis. Patient condition: Stable Discharge Plan Plan Patient Disposition: HOME (Self Care) Discharge Disposition comment: stable Prescriptions/Referrals Prescriptions/Med Rec: No Action tamsulosin [Flomax] 0.4 mg capsule 0.4 mg PO QDAY Qty: 20 0RF acetaminophen-codeine 300-30 mg tablet 1 tab PO Q8H PRN (Reason: pain) Qty: 20 0RF acetaminophen-codeine 300-30 mg tablet 1 tab PO Q8H PRN (Reason: pain) Qty: 20 0RF hydrocodone-acetaminophen 5-325 mg tablet 1 tab PO BID MDD 10 PRN (Reason: pain) Qty: 14 0RF ibuprofen 600 mg tablet 600 mg PO Q6H PRN (Reason: pain) Qty: 30 0RF acetaminophen-codeine 300-30 mg tablet 1 tab PO Q8H PRN (Reason: pain) Qty: 20 0RF hydrocodone-acetaminophen 5-325 mg tablet 1 tab PO BID MDD 10 PRN (Reason: pain) Qty: 10 0RF ibuprofen 800 mg tablet 800 mg PO TID PRN (Reason: pain) Qty: 30 0RF hydrocodone-acetaminophen 5-325 mg tablet 1 tab PO BID MDD 10 PRN (Reason: pain) Qty: 10 0RF hydrocodone-acetaminophen 5-325 mg tablet 1 tab PO BID MDD 10mg PRN (Reason: pain) Qty: 6 0RF ketorolac 10 mg tablet 10 mg PO Q8H Qty: 10 0RF Rx Instructions: maximum total duration of 5 days from all oral, intranasal, or parenteral formulations acetaminophen-codeine 300-30 mg tablet 1 tab PO Q8H PRN (Reason: pain) Qty: 20 0RF tamsulosin [Flomax] 0.4 mg capsule 0.4 mg PO QDAY Qty: 20 0RF ketorolac 10 mg tablet 10 mg PO Q6H PRN (Reason: pain) Qty: 30 0RF Rx Instructions: maximum total duration of 5 days from all oral, intranasal, or parenteral formulations hydrocodone-acetaminophen 5-325 mg tablet 1 tab PO BID MDD 10mg PRN (Reason: pain) Qty: 10 0RF ciprofloxacin HCl [Cipro] 500 mg tablet 500 mg PO BID Qty: 14 0RF hydrocodone-acetaminophen 5-325 mg tablet 2 tab PO Q8H MDD 6 PRN (Reason: pain) Qty: 20 0RF Problem List Clinical Impression: Pain in urethra, Bladder stone Patient/Caregiver Discharge Instructions Education Materials: Anatomy of the Male Urinary Tract Additional Instructions: Please follow up with your specialist today for worsening symptoms return immediately Print Language: Malawian Stand Alone Forms: Latoya Award Info., Patient Portal Info Letter PA/DIRECTOR OF CASEWORK Supervising Physician ALPHONSO/CECILIA Supervising Physician: dr foote
== END 2025-01-10 09:56 | disposition home or self-care (01) ==
LOC: SERX 09:27
PROVIDERS: Emergency Provider Emergency Medicine
DX: N21.0 Calculus in bladder (principal)
CPT/HCPCS: 96372; 99283; J1885

== ENCOUNTER 2025-01-29 23:44 | Emergency (ER) | payer MEDICAID, SELFPAY ==
[2025-01-29 23:44] VITALS: BMI 22.8
[2025-01-30 00:02] VITALS: BP 134/80; PULSE 100; RESP 18; TEMP 36.7; O2SAT 99
--- NOTE | 2025-01-30 00:05 | EDNOTE_ITS ---
ED Male Genitalurinary RME/HPI General Chief complaint: Urogenital-Male Stated complaint: CHANGE SAINI Time Seen by Provider: 01/29/25 23:49 Source: patient, RN notes reviewed and old records reviewed Arrival date/time: 01/29/25 23:44 Mode of arrival: ambulatory Limitations: no limitations RME / HPI RME / HPI Narrative: 64yom presents to ED for bladder pain. Patient s/p bladder stone removal on 01/16/25, surgery performed in [place]. Patient has follow-up appointment this . He reports he is out of pain medications at home. No fever, nausea/vomiting or flank pain reported. Related Data Previous Rx's ?Medication ?Instructions ?Recorded hydrocodone 5 mg-acetaminophen 325 1 tab PO BID PRN pa in #10 tabs 09/20/24 mg tablet ibuprofen 800 mg tablet 800 mg PO TID PRN pain #30 t abs 09/20/24 tamsulosin 0.4 mg capsule (Flomax) 0.4 mg PO QDAY #20 caps 10/01/24 acetaminophen 300 mg-codeine 30 mg 1 tab PO Q8H PRN pa in #20 tabs 10/26/24 tablet acetaminophen 300 mg-codeine 30 mg 1 tab PO Q8H PRN pa in #20 tabs 10/26/24 tablet hydrocodone 5 mg-acetaminophen 325 1 tab PO BID PRN pa in #6 tabs 10/29/24 mg tablet ketorolac 10 mg tablet 10 mg PO Q8H #10 tabs hydrocodone 5 mg-acetaminophen 325 1 tab PO BID PRN pa in #14 tabs 11/09/24 mg tablet acetaminophen 300 mg-codeine 30 mg 1 tab PO Q8H PRN pa in #20 tabs 11/11/24 tablet ibuprofen 600 mg tablet 600 mg PO Q6H PRN pain #30 t abs 11/11/24 acetaminophen 300 mg-codeine 30 mg 1 tab PO Q8H PRN pa in #20 tabs 12/14/24 tablet tamsulosin 0.4 mg capsule (Flomax) 0.4 mg PO QDAY #20 caps 12/14/24 ketorolac 10 mg tablet 10 mg PO Q6H PRN pain #30 ta bs 12/18/24 hydrocodone 5 mg-acetaminophen 325 1 tab PO BID PRN pa in #10 tabs 12/26/25 mg tablet hydrocodone 5 mg-acetaminophen 325 1 tab PO BID PRN pa in #10 tabs 12/27/ mg tablet ciprofloxacin HCl 500 mg tablet 500 mg PO BID #14 tabs 12/28/24 (Cipro) hydrocodone 5 mg-acetaminophen 325 2 tab PO Q8H PRN pa in #20 tabs 12/29/ mg tablet acetaminophen 500 mg tablet 1,000 mg (2 x 500 mg) PO Q 6H PRN 01/30/25 (Tylenol Extra Strength) pain #30 tabs Allergies Allergy/AdvReac Type Severity Reaction Status Date / Time No Known Allergies Allergy Verified 01/30/25 19:24 Review of Systems Review of Systems Systems Reviewed: All systems reviewed, normal except as documented Constitutional Constitutional: Denies chills and Denies fever(s) Gastrointestinal Gastrointestinal: Denies nausea and Denies vomiting Genitourinary Genitourinary: Denies flank pain Comments: Reports bladder pain Past Medical History Past Medical History NEUROLOGIC: Negative Neurological Disorders or Seizures CARDIAC: Negative Cardiac Disorders or Congestive Heart Failure RESPIRATORY: Negative Chronic Obstructive Pulmonary Disease (COPD) or Asthma GENITOURINARY: Positive Genitourinary Disorders, Kidney Stones and Benign Prostatic Hyperplasia; Negative Renal Disease MUSCULOSKELETAL: Positive Musculoskeletal Disorders and Degenerative Joint Disease ENDOCRINE: Negative Diabetes Mellitus Type 1 or Diabetes Mellitus Type 2 HEMATOLOGIC: Negative Sickle Cell Disease OTHER HISTORY: Negative Blood Transfusions, Blood Transfusion Reaction or Anesthesia Reactions Social History SMOKING STATUS: Current every day smoker SUBSTANCE USE: does not use ED Exam General Limitations: Present no limitations General appearance: Present alert and in no apparent distress Head Head exam: Present atraumatic and normocephalic Eye Eye exam: Present normal appearance, PERRL and EOMI ENT ENT exam: Present normal exam and mucous membranes moist Neck Neck exam: Present normal inspection and full ROM Chest Chest inspection: Present normal inspection and symmetric chest wall rise Respiratory Respiratory exam: Present normal lung sounds bilaterally; Absent respiratory distress Cardiovascular Cardiovascular exam: Present regular rate and normal rhythm Abdominal Exam Abdominal exam: Present soft and tenderness (Mild, suprapubic); Absent distention, guarding or rebound Extremities Exam Extremities exam: Present normal inspection and full ROM Back Exam Back exam: Absent CVA tenderness (R) or CVA tenderness (L) Neurological Exam Neurological exam: Present alert and oriented X3 Psychiatric Psychiatric exam: Present normal affect and normal mood Skin Skin exam: Present warm, dry and intact Course Quality Measures none Orders Category Date Time Status HYDROcodone/APAP 10/325 [Glen 10/325] Med 01/30/25 00:05 Discontinued 1 tab PO X1 ONE Vital Signs Vital signs: Vital Signs Temperature 98.0 F 01/30/25 00:02 Pulse Rate 100 01/30/25 00:02 Respiratory Rate 18 01/30/25 00:02 Blood Pressure 134/80 H 01/30/25 00:02 Pulse Oximetry (%) 99 01/30/25 00:02 Oxygen Delivery Method Room Air 01/30/25 00:02 Urogenital - Male MDM Narrative MDM Narrative:: 64yom presents to ED for bladder pain. Patient s/p bladder stone removal on 01/16/25, surgery performed in [place]. Patient has follow-up appointment this . He reports he is out of pain medications at home. No fever, nausea/vomiting or flank pain reported. Glen administered in ED. Patient declined both flushing/irrigation and exchange of Sanii at this time. Recommended follow-up with urologist as scheduled. Stable for discharge, RTED precautions given. Patient data External records reviewed:: [facility] previous records (01/10/2025 ED visit for bladder stone) Clinical information provided by:: patient Social determinants that could affect healthcare access:: none Patient has the following chronic illnesses:: Bladder stones How is presenting disease/condition affected by chronic disease/condition?: caused by Evaluation data The following diagnostics were reviewed and interpreted by me:: other (specify) (None) Lab and/or radiology exams considered but not ordered:: UA Interpretation Summary: none Medications / Prescriptions Medications or Prescriptions considered but not ordered:: No antibiotics recommended at this time Medication administrations:: Medication Administration History Discontinued Medications Hydrocodone Bitart/Acetaminophen (Hydrocodone/Apap 10/325 Tab) 1 tab PO X1 ONE Stop: 01/30/25 00:06 Last Admin: 01/30/25 00:12 Dose: 1 tab Documented By: AM Above medication administered in ED Consultations Consultation(s) initiated? (list below): No Diagnosis Urogenital Male Differential Diagnosis: urinary tract infection, urethritis, acute retention of urine and other (Postop pain) Most likely diagnosis given after review of the tests above:: Postop pain Admission Indicated Admission indicated?: not indicated Admission Request Was there a request for admission?: No Disposition Plan Disposition Plan: Discharge Discharge Attestation Discharge Attestation: The patient and all family members were given an opportunity to ask questions and understood the discharge instructions. Discharge instructions specifically effects, indications for sooner follow up or return to the emergency department, and the expected course of current diagnosis. Patient condition: Stable Discharge Plan Plan Patient Disposition: HOME (Self Care) Patient condition on transfer: Stable Prescriptions/Referrals Prescriptions/Med Rec: New acetaminophen [Tylenol Extra Strength] 500 mg tablet 1,000 mg PO Q6H PRN (Reason: pain) Qty: 30 0RF No Action tamsulosin [Flomax] 0.4 mg capsule 0.4 mg PO QDAY Qty: 20 0RF acetaminophen-codeine 300-30 mg tablet 1 tab PO Q8H PRN (Reason: pain) Qty: 20 0RF acetaminophen-codeine 300-30 mg tablet 1 tab PO Q8H PRN (Reason: pain) Qty: 20 0RF hydrocodone-acetaminophen 5-325 mg tablet 1 tab PO BID MDD 10 PRN (Reason: pain) Qty: 14 0RF ibuprofen 600 mg tablet 600 mg PO Q6H PRN (Reason: pain) Qty: 30 0RF acetaminophen-codeine 300-30 mg tablet 1 tab PO Q8H PRN (Reason: pain) Qty: 20 0RF hydrocodone-acetaminophen 5-325 mg tablet 1 tab PO BID MDD 10 PRN (Reason: pain) Qty: 10 0RF ibuprofen 800 mg tablet 800 mg PO TID PRN (Reason: pain) Qty: 30 0RF hydrocodone-acetaminophen 5-325 mg tablet 1 tab PO BID MDD 10 PRN (Reason: pain) Qty: 10 0RF hydrocodone-acetaminophen 5-325 mg tablet 1 tab PO BID MDD 10mg PRN (Reason: pain) Qty: 6 0RF ketorolac 10 mg tablet 10 mg PO Q8H Qty: 10 0RF Rx Instructions: maximum total duration of 5 days from all oral, intranasal, or parenteral formulations acetaminophen-codeine 300-30 mg tablet 1 tab PO Q8H PRN (Reason: pain) Qty: 20 0RF tamsulosin [Flomax] 0.4 mg capsule 0.4 mg PO QDAY Qty: 20 0RF ketorolac 10 mg tablet 10 mg PO Q6H PRN (Reason: pain) Qty: 30 0RF Rx Instructions: maximum total duration of 5 days from all oral, intranasal, or parenteral formulations hydrocodone-acetaminophen 5-325 mg tablet 1 tab PO BID MDD 10mg PRN (Reason: pain) Qty: 10 0RF ciprofloxacin HCl [Cipro] 500 mg tablet 500 mg PO BID Qty: 14 0RF hydrocodone-acetaminophen 5-325 mg tablet 2 tab PO Q8H MDD 6 PRN (Reason: pain) Qty: 20 0RF Referrals: Temporary Provider,ED [Physician, Emergency Medicine] - In 1 week Problem List Clinical Impression: Post-op pain Patient/Caregiver Discharge Instructions Education Materials: Managing Post-Op Pain at Home Print Language: Libyan Stand Alone Forms: Latoya Award Info., Patient Portal Info Letter PA/ACCREDITED LEGAL SECRETARY Supervising Physician PA/ACCREDITED LEGAL SECRETARY Supervising Physician: Nasrin
== END 2025-01-30 00:21 | disposition home or self-care (01) ==
LOC: SERX 01-30 00:17
PROVIDERS: Emergency Provider Emergency Medicine; PCP Family Medicine
DX: G89.18 Other acute postprocedural pain (principal)
CPT/HCPCS: 99281; A9270

== ENCOUNTER 2025-01-30 11:30 | Emergency (ER) | payer MEDICAID, SELFPAY ==
[2025-01-30 12:07] VITALS: BP 135/71; PULSE 79; RESP 18; TEMP 36.7; O2SAT 99
--- NOTE | 2025-01-30 13:44 | PC.NURSE ---
patient s/p bladder calculi removal surgery. FC flushed with Sterile NS. FC intact and patent , draining to gravity with leg bag.
--- NOTE | 2025-01-30 15:10 | EDNOTE_ITS ---
<Statement entered by Marylou Andersen MD - 01/31/25 09:35> As co-signing physician, I was present and available for consult prn. I concur with the plan and care as documented by the midlevel provider. ED General RME/HPI General Chief complaint: General Adult/Misc Complain Stated complaint: SAINI IS CLOGGED Time Seen by Provider: 01/30/25 11:56 Arrival date/time: 01/30/25 11:30 64-year-old male presents to the Emergency Department today stating he recently had surgery in [place] for a bladder stone patient currently has a Saini catheter in place and reports he is a follow-up appointment in 2 days from now with his specialist patient reports he feels like his Saini catheter is clogged. Patient reports his pain is significantly better than has been in the past since having surgery Limitations: no limitations Related Data Previous Rx's ?Medication ?Instructions ?Recorded hydrocodone 5 mg-acetaminophen 325 1 tab PO BID PRN pa in #10 tabs 09/20/24 mg tablet ibuprofen 800 mg tablet 800 mg PO TID PRN pain #30 t abs 09/20/24 tamsulosin 0.4 mg capsule (Flomax) 0.4 mg PO QDAY #20 caps 10/01/24 acetaminophen 300 mg-codeine 30 mg 1 tab PO Q8H PRN pa in #20 tabs 10/26/24 tablet acetaminophen 300 mg-codeine 30 mg 1 tab PO Q8H PRN pa in #20 tabs 10/26/24 tablet hydrocodone 5 mg-acetaminophen 325 1 tab PO BID PRN pa in #6 tabs 10/29/24 mg tablet ketorolac 10 mg tablet 10 mg PO Q8H #10 tabs hydrocodone 5 mg-acetaminophen 325 1 tab PO BID PRN pa in #14 tabs 11/09/24 mg tablet acetaminophen 300 mg-codeine 30 mg 1 tab PO Q8H PRN pa in #20 tabs 11/11/24 tablet ibuprofen 600 mg tablet 600 mg PO Q6H PRN pain #30 t abs 11/11/24 acetaminophen 300 mg-codeine 30 mg 1 tab PO Q8H PRN pa in #20 tabs 12/14/24 tablet tamsulosin 0.4 mg capsule (Flomax) 0.4 mg PO QDAY #20 caps 12/14/24 ketorolac 10 mg tablet 10 mg PO Q6H PRN pain #30 ta bs 12/18/24 hydrocodone 5 mg-acetaminophen 325 1 tab PO BID PRN pa in #10 tabs 12/26/24 mg tablet hydrocodone 5 mg-acetaminophen 325 1 tab PO BID PRN pa in #10 tabs 12/27/24 mg tablet ciprofloxacin HCl 500 mg tablet 500 mg PO BID #14 tabs 12/28/24 (Cipro) hydrocodone 5 mg-acetaminophen 325 2 tab PO Q8H PRN pa in #20 tabs 12/29/24 mg tablet acetaminophen 500 mg tablet 1,000 mg (2 x 500 mg) PO Q 6H PRN 01/30/25 (Tylenol Extra Strength) pain #30 tabs Allergies Allergy/AdvReac Type Severity Reaction Status Date / Time No Known Allergies Allergy Verified 01/30/25 11:32 Review of Systems Review of Systems Systems Reviewed: All systems reviewed, normal except as documented Constitutional Constitutional: Reports system reviewed and no additional complaints, except as documented, Denies fever(s) and Denies headache(s) Eyes Eyes: Reports system reviewed and no additional complaints, except as documented and Denies blurry vision ENT Ears, Nose, Mouth, and Throat: Reports system reviewed and no additional complaints, except as documented, Denies headache(s), Denies nasal congestion and Denies nasal discharge Cardiovascular Cardiovascular: Reports system reviewed and no additional complaints, except as documented, Denies chest pain and Denies dyspnea Respiratory Respiratory: Reports system reviewed and no additional complaints, except as documented, Denies chest congestion, Denies cough and Denies dyspnea Gastrointestinal Gastrointestinal: Reports system reviewed and no additional complaints, except as documented and Denies abdominal pain Genitourinary Genitourinary: Reports system reviewed and no additional complaints, except as documented and Reports other (Saini catheter clogged) Integumentary/Breasts Skin/Breast: Reports system reviewed and no additional complaints, except as documented and Denies rash Neurologic Neurologic: Reports system reviewed and no additional complaints, except as documented, Reports as per HPI and Denies headache(s) Past Medical History Past Medical History NEUROLOGIC: Negative Neurological Disorders or Seizures CARDIAC: Negative Cardiac Disorders or Congestive Heart Failure RESPIRATORY: Negative Chronic Obstructive Pulmonary Disease (COPD) or Asthma GENITOURINARY: Positive Genitourinary Disorders, Kidney Stones and Benign Prostatic Hyperplasia; Negative Renal Disease MUSCULOSKELETAL: Positive Musculoskeletal Disorders and Degenerative Joint Disease ENDOCRINE: Negative Diabetes Mellitus Type 1 or Diabetes Mellitus Type 2 HEMATOLOGIC: Negative Sickle Cell Disease OTHER HISTORY: Negative Blood Transfusions, Blood Transfusion Reaction or Anesthesia Reactions Social History SMOKING STATUS: Current every day smoker SUBSTANCE USE: does not use ED Exam General Limitations: Present no limitations General appearance: Present alert and in no apparent distress Head Head exam: Present atraumatic, normocephalic and normal inspection Eye Eye exam: Present normal appearance, PERRL and EOMI; Absent conjunctival injection ENT ENT exam: Present normal exam, normal oropharynx and mucous membranes moist Neck Neck exam: Present normal inspection, full ROM and trachea midline Chest Chest inspection: Present normal inspection and symmetric chest wall rise Respiratory Respiratory exam: Present normal lung sounds bilaterally; Absent respiratory distress Cardiovascular Cardiovascular exam: Present regular rate, normal rhythm and normal heart sounds Abdominal Exam Abdominal exam: Present soft and normal bowel sounds; Absent distention, tenderness, guarding, rebound or rigidity exam: Present other (Saini catheter) Extremities Exam Extremities exam: Present normal inspection and full ROM Back Exam Back exam: Present normal inspection and full ROM Neurological Exam Neurological exam: Present alert, oriented X3 and CN II-XII intact Psychiatric Psychiatric exam: Present normal affect and normal mood Skin Skin exam: Present warm, dry, intact and normal color Course Quality Measures none Orders Category Date Time Status HYDROcodone/APAP /325 [Kila 10/325] Med 01/30/25 12:10 Discontinued 1 tab PO X1 ONE Vital Signs Vital signs: Vital Signs Temperature 98.0 F 01/30/25 12:07 Pulse Rate 79 01/30/25 12:07 Respiratory Rate 18 01/30/25 12:07 Blood Pressure 135/71 H 01/30/25 12:07 Pulse Oximetry (%) 99 01/30/25 12:07 Oxygen Delivery Method Room Air 01/30/25 12:07 O2 saturation 99% room air within months Discharge Plan Plan Patient Disposition: HOME (Self Care) Discharge Disposition comment: Stable Prescriptions/Referrals Prescriptions/Med Rec: No Action tamsulosin [Flomax] 0.4 mg capsule 0.4 mg PO QDAY Qty: 20 0RF acetaminophen-codeine 300-30 mg tablet 1 tab PO Q8H PRN (Reason: pain) Qty: 20 0RF acetaminophen-codeine 300-30 mg tablet 1 tab PO Q8H PRN (Reason: pain) Qty: 20 0RF hydrocodone-acetaminophen 5-325 mg tablet 1 tab PO BID MDD 10 PRN (Reason: pain) Qty: 14 0RF ibuprofen 600 mg tablet 600 mg PO Q6H PRN (Reason: pain) Qty: 30 0RF acetaminophen-codeine 300-30 mg tablet 1 tab PO Q8H PRN (Reason: pain) Qty: 20 0RF hydrocodone-acetaminophen 5-325 mg tablet 1 tab PO BID MDD 10 PRN (Reason: pain) Qty: 10 0RF ibuprofen 800 mg tablet 800 mg PO TID PRN (Reason: pain) Qty: 30 0RF hydrocodone-acetaminophen 5-325 mg tablet 1 tab PO BID MDD 10 PRN (Reason: pain) Qty: 10 0RF hydrocodone-acetaminophen 5-325 mg tablet 1 tab PO BID MDD 10mg PRN (Reason: pain) Qty: 6 0RF ketorolac 10 mg tablet 10 mg PO Q8H Qty: 10 0RF Rx Instructions: maximum total duration of 5 days from all oral, intranasal, or parenteral formulations acetaminophen-codeine 300-30 mg tablet 1 tab PO Q8H PRN (Reason: pain) Qty: 20 0RF tamsulosin [Flomax] 0.4 mg capsule 0.4 mg PO QDAY Qty: 20 0RF ketorolac 10 mg tablet 10 mg PO Q6H PRN (Reason: pain) Qty: 30 0RF Rx Instructions: maximum total duration of 5 days from all oral, intranasal, or parenteral formulations hydrocodone-acetaminophen 5-325 mg tablet 1 tab PO BID MDD 10mg PRN (Reason: pain) Qty: 10 0RF ciprofloxacin HCl [Cipro] 500 mg tablet 500 mg PO BID Qty: 14 0RF hydrocodone-acetaminophen 5-325 mg tablet 2 tab PO Q8H MDD 6 PRN (Reason: pain) Qty: 20 0RF acetaminophen [Tylenol Extra Strength] 500 mg tablet 1,000 mg PO Q6H PRN (Reason: pain) Qty: 30 0RF Problem List Clinical Impression: Saini catheter in place Patient/Caregiver Discharge Instructions Education Materials: ED Saini Catheter, Care Additional Instructions: Please keep your doctor appointment on for worsening symptoms return immediately Print Language: Kiswahili Stand Alone Forms: Latoya Award Info., Patient Portal Info Letter ALPHONSO/CECILIA Supervising Physician ALPHONSO/CECILIA Supervising Physician: Dr. Andersen MDM Narrative MDM hospital course (for use when minimal MDM required): 64-year-old male presents to the Emergency Department today stating he recently had surgery in [place] for a bladder stone patient currently has a Saini catheter in place and reports he is a follow-up appointment in 2 days from now with his specialist patient reports he feels like his Saini catheter is clogged. Patient reports his pain is significantly better than has been in the past since having surgery On exam patient is Saini catheter in place Saini catheter is flushed Patient reports relief Patient instructed to follow-up in 2 days with specialist worsening symptoms for immediately Medical Records reviewed None Meds/Rx considered, not ordered None Labs/Rad/Tests considered, not ordered None Chronic Illness/Social Conditions which may negatively complicate care or outcome(s)-explain: None or not applicable EKG EKG not done Labs Labs: none Imaging Imaging interpretation: none Medication Administration(s) Medication Administration History Discontinued Medications Hydrocodone Bitart/Acetaminophen (Hydrocodone/Apap 10/325 Tab) 1 tab PO X1 ONE Stop: 01/30/25 12:11 Last Admin: 01/30/25 12:48 Dose: 1 tab Documented By: Given Diagnosis Differential Diagnosis ED Complaint MDM: Cystitis, UTI, urine retention
== END 2025-01-30 13:47 | disposition home or self-care (01) ==
LOC: SERX 12:33
PROVIDERS: Emergency Provider Nurse Practitioner Primary Care; PCP Family Medicine
DX: Z46.6 Encounter for fitting and adjustment of urinary device (principal); Z96.0 Presence of urogenital implants; Z98.890 Other specified postprocedural states
CPT/HCPCS: 99281; A9270

== ENCOUNTER 2025-01-30 19:23 | Emergency (ER) | payer MEDICAID, SELFPAY ==
[2025-01-30 19:24] VITALS: BMI 22.8
[2025-01-30 20:09] VITALS: BP 132/77; PULSE 82; RESP 18; TEMP 36.7; O2SAT 99
--- NOTE | 2025-01-30 20:12 | EDRME_ITS ---
Rapid Medical Screening Exam RME Arrival date/time: 01/30/25 19:23 Chief Complaint: Urogenital-Male Time Seen by Provider: 01/30/25 19:33 Vital signs: Vital Signs Temperature 98.1 F 01/30/25 20:09 Pulse Rate 82 01/30/25 20:09 Respiratory Rate 18 01/30/25 20:09 Blood Pressure 132/77 H 01/30/25 20:09 Pulse Oximetry (%) 99 01/30/25 20:09 Oxygen Delivery Method Room Air 01/30/25 20:09 RME Narrative: Melgar not draining. hx bladder stone removal in [place] 01/16. F/u appt scheduled for Exam: Nontoxic-appearing, no acute distress Clinical Impression: Melgra problem
[2025-01-30] MEDS: LIDOCAINE JELLY 2% (Urojet) 10 ML TUBE TOP (22:00)
--- NOTE | 2025-01-30 23:06 | EDNOTE_ITS ---
ED Male Genitalurinary RME/HPI General Chief complaint: Urogenital-Male Stated complaint: NEED SAINI CHANGED Time Seen by Provider: 01/30/25 19:33 Source: patient, RN notes reviewed and old records reviewed Arrival date/time: 01/30/25 19:23 Mode of arrival: ambulatory Limitations: no limitations RME / HPI RME / HPI Narrative: 64yom presents to ED for Saini issue. Patient states Saini catheter has not been draining today. Hx of bladder stone removal in [place] 01/16/25. Patient has follow-up scheduled for this . Exam: Nontoxic-appearing, no acute distress Impression: Saini problem Related Data Previous Rx's ?Medication ?Instructions ?Recorded hydrocodone 5 mg-acetaminophen 325 1 tab PO BID PRN pa in #10 tabs 09/20/24 mg tablet ibuprofen 800 mg tablet 800 mg PO TID PRN pain #30 t abs 09/20/24 tamsulosin 0.4 mg capsule (Flomax) 0.4 mg PO QDAY #20 caps 10/01/24 acetaminophen 300 mg-codeine 30 mg 1 tab PO Q8H PRN pa in #20 tabs 10/26/24 tablet acetaminophen 300 mg-codeine 30 mg 1 tab PO Q8H PRN pa in #20 tabs 10/26/24 tablet hydrocodone 5 mg-acetaminophen 325 1 tab PO BID PRN pa in #6 tabs 10/29/24 mg tablet ketorolac 10 mg tablet 10 mg PO Q8H #10 tabs hydrocodone 5 mg-acetaminophen 325 1 tab PO BID PRN pa in #14 tabs 11/09/24 mg tablet acetaminophen 300 mg-codeine 30 mg 1 tab PO Q8H PRN pa in #20 tabs 11/11/24 tablet ibuprofen 600 mg tablet 600 mg PO Q6H PRN pain #30 t abs 11/11/24 acetaminophen 300 mg-codeine 30 mg 1 tab PO Q8H PRN pa in #20 tabs 12/14/24 tablet tamsulosin 0.4 mg capsule (Flomax) 0.4 mg PO QDAY #20 caps 12/14/24 ketorolac 10 mg tablet 10 mg PO Q6H PRN pain #30 ta bs 12/18/24 hydrocodone 5 mg-acetaminophen 325 1 tab PO BID PRN pa in #10 tabs 12/26/ mg tablet hydrocodone 5 mg-acetaminophen 325 1 tab PO BID PRN pa in #10 tabs 12/27/24 mg tablet ciprofloxacin HCl 500 mg tablet 500 mg PO BID #14 tabs 12/28/24 (Cipro) hydrocodone 5 mg-acetaminophen 325 2 tab PO Q8H PRN pa in #20 tabs 12/29/24 mg tablet acetaminophen 500 mg tablet 1,000 mg (2 x 500 mg) PO Q 6H PRN 01/30/25 (Tylenol Extra Strength) pain #30 tabs Allergies Allergy/AdvReac Type Severity Reaction Status Date / Time No Known Allergies Allergy Verified 01/30/25 19:24 Review of Systems Review of Systems Systems Reviewed: All systems reviewed, normal except as documented Past Medical History Past Medical History NEUROLOGIC: Negative Neurological Disorders or Seizures CARDIAC: Negative Cardiac Disorders or Congestive Heart Failure RESPIRATORY: Negative Chronic Obstructive Pulmonary Disease (COPD) or Asthma GENITOURINARY: Positive Genitourinary Disorders, Kidney Stones and Benign Prostatic Hyperplasia; Negative Renal Disease MUSCULOSKELETAL: Positive Musculoskeletal Disorders and Degenerative Joint Disease ENDOCRINE: Negative Diabetes Mellitus Type 1 or Diabetes Mellitus Type 2 HEMATOLOGIC: Negative Sickle Cell Disease OTHER HISTORY: Negative Blood Transfusions, Blood Transfusion Reaction or An esthesia Reactions Social History SMOKING STATUS: Current every day smoker SUBSTANCE USE: does not use ED Exam General Limitations: Present no limitations General appearance: Present alert and in no apparent distress Head Head exam: Present atraumatic and normocephalic Eye Eye exam: Present normal appearance, PERRL and EOMI ENT ENT exam: Present normal exam and mucous membranes moist Neck Neck exam: Present normal inspection and full ROM Chest Chest inspection: Present normal inspection and symmetric chest wall rise Respiratory Respiratory exam: Present normal lung sounds bilaterally; Absent respiratory distress Cardiovascular Cardiovascular exam: Present regular rate and normal rhythm Abdominal Exam Abdominal exam: Present soft; Absent distention, tenderness, guarding or rebound Extremities Exam Extremities exam: Present normal inspection and full ROM Back Exam Back exam: Absent CVA tenderness (R) or CVA tenderness (L) Neurological Exam Neurological exam: Present alert and oriented X3 Psychiatric Psychiatric exam: Present normal affect and normal mood Skin Skin exam: Present warm, dry, intact and normal color Course Quality Measures none Orders Category Date Time Status Saini [Urinary Catheter, Remove] ONCE Care 01/30/25 20:12 Completed Saini [Urinary Catheter] QS Care 01/30/25 20:12 Completed HYDROcodone/APAP 10/325 [[place] 10/325] Med 01/30/25 20:12 Discontinued 1 tab PO X1 ONE Lidocaine Jelly 2% Urojet [Xylocaine Jelly 2% Urojet] Med 01/30/25 20:12 Discontinued See Dose Instructions TOP X1 ONE Vital Signs Vital signs: Vital Signs Temperature 98.1 F 01/30/25 20:09 Pulse Rate 82 01/30/25 20:09 Respiratory Rate 18 01/30/25 20:09 Blood Pressure 132/77 H 01/30/25 20:09 Pulse Oximetry (%) 99 01/30/25 20:09 Oxygen Delivery Method Room Air 01/30/25 20:09 Urogenital - Male MDM Narrative MDM Narrative:: 64yom presents to ED for Saini issue. Patient states Saini catheter has not been draining today. Hx of bladder stone removal in [place] 01/16/25. Patient has follow-up scheduled for this . Saini successfully replaced in ED. Patient tolerated well, condition improved. Strongly encouraged urology follow-up as scheduled in 2 days. Stable for discharge, RTED precautions given. Patient data External records reviewed:: [facility] previous records (ED visit yesterday for bladder/postop pain) Clinical information provided by:: patient Social determinants that could affect healthcare access:: none Patient has the following chronic illnesses:: Bladder stones How is presenting disease/condition affected by chronic disease/condition?: caused by Evaluation data The following diagnostics were reviewed and interpreted by me:: other (specify) (None) Lab and/or radiology exams considered but not ordered:: UA Interpretation Summary: na Medications / Prescriptions Medications or Prescriptions considered but not ordered:: No antibiotics recommended at this time Medication administrations:: Medication Administration History Discontinued Medications Hydrocodone Bitart/Acetaminophen (Hydrocodone/Apap 10/325 Tab) 1 tab PO X1 ONE Stop: 01/30/25 20:13 Last Admin: 01/30/25 22:00 Dose: 1 tab Documented By: FLOYD Lidocaine HCl (Lidocaine Jelly 2% (Urojet) 10 Ml Tube) 0 ml TOP X1 ONE Stop: 01/30/25 20:13 Last Admin: 01/30/25 22:00 Dose: 10 ml Documented By: FLOYD Above medications administered in ED Consultations Consultation(s) initiated? (list below): No Diagnosis Urogenital Male Differential Diagnosis: urinary tract infection, urethritis, epididymitis, acute retention of urine and other (Saini replacement, Saini issue) Most likely diagnosis given after review of the tests above:: Saini problem/replacement Admission Indicated Admission indicated?: not indicated Admission Request Was there a request for admission?: No Disposition Plan Disposition Plan: Discharge Discharge Attestation Discharge Attestation: The patient and all family members were given an opportunity to ask questions and understood the discharge instructions. Discharge instructions specifically effects, indications for sooner follow up or return to the emergency department, and the expected course of current diagnosis. Patient condition: Stable Discharge Plan Plan Patient Disposition: HOME (Self Care) Patient condition on transfer: Stable Prescriptions/Referrals Prescriptions/Med Rec: No Action tamsulosin [Flomax] 0.4 mg capsule 0.4 mg PO QDAY Qty: 20 0RF acetaminophen-codeine 300-30 mg tablet 1 tab PO Q8H PRN (Reason: pain) Qty: 20 0RF acetaminophen-codeine 300-30 mg tablet 1 tab PO Q8H PRN (Reason: pain) Qty: 20 0RF hydrocodone-acetaminophen 5-325 mg tablet 1 tab PO BID MDD 10 PRN (Reason: pain) Qty: 14 0RF ibuprofen 600 mg tablet 600 mg PO Q6H PRN (Reason: pain) Qty: 30 0RF acetaminophen-codeine 300-30 mg tablet 1 tab PO Q8H PRN (Reason: pain) Qty: 20 0RF hydrocodone-acetaminophen 5-325 mg tablet 1 tab PO BID MDD 10 PRN (Reason: pain) Qty: 10 0RF ibuprofen 800 mg tablet 800 mg PO TID PRN (Reason: pain) Qty: 30 0RF hydrocodone-acetaminophen 5-325 mg tablet 1 tab PO BID MDD 10 PRN (Reason: pain) Qty: 10 0RF hydrocodone-acetaminophen 5-325 mg tablet 1 tab PO BID MDD 10mg PRN (Reason: pain) Qty: 6 0RF ketorolac 10 mg tablet 10 mg PO Q8H Qty: 10 0RF Rx Instructions: maximum total duration of 5 days from all oral, intranasal, or parenteral formulations acetaminophen-codeine 300-30 mg tablet 1 tab PO Q8H PRN (Reason: pain) Qty: 20 0RF tamsulosin [Flomax] 0.4 mg capsule 0.4 mg PO QDAY Qty: 20 0RF ketorolac 10 mg tablet 10 mg PO Q6H PRN (Reason: pain) Qty: 30 0RF Rx Instructions: maximum total duration of 5 days from all oral, intranasal, or parenteral formulations hydrocodone-acetaminophen 5-325 mg tablet 1 tab PO BID MDD 10mg PRN (Reason: pain) Qty: 10 0RF ciprofloxacin HCl [Cipro] 500 mg tablet 500 mg PO BID Qty: 14 0RF hydrocodone-acetaminophen 5-325 mg tablet 2 tab PO Q8H MDD 6 PRN (Reason: pain) Qty: 20 0RF acetaminophen [Tylenol Extra Strength] 500 mg tablet 1,000 mg PO Q6H PRN (Reason: pain) Qty: 30 0RF Referrals: Parminder Lyles MD [Primary Care Provider, Family Practice] - In 1 week Problem List Clinical Impression: Encounter for Saini catheter replacement Patient/Caregiver Discharge Instructions Print Language: Croatian Stand Alone Forms: Latoya Award Info., Patient Portal Info Letter PA/EMBEDDED FIRMWARE ENGINEER Supervising Physician PA/EMBEDDED FIRMWARE ENGINEER Supervising Physician: Juventino
== END 2025-01-30 23:11 | disposition home or self-care (01) ==
PROVIDERS: Emergency Provider Emergency Medicine; PCP Family Medicine
DX: Z46.6 Encounter for fitting and adjustment of urinary device (principal)
CPT/HCPCS: 51702; 99282; A4314; A9270

== ENCOUNTER 2025-02-03 17:11 | Emergency (ER) | payer MEDICAID, SELFPAY ==
--- NOTE | 2025-02-03 17:57 | PC.NURSE ---
CALLED PT BACK, NO ANSWER AT THIS TIME
== END 2025-02-03 19:42 | disposition left against medical advice (07) ==
LOC: SERX 20:11
PROVIDERS: Emergency Provider Emergency Medicine
DX: Z53.21 Procedure and treatment not carried out due to patient leaving prior to being seen by health care provider (principal)
CPT/HCPCS: 99281

== ENCOUNTER 2025-02-05 09:14 | Emergency (ER) | payer MEDICAID, SELFPAY ==
[2025-02-05 09:15] VITALS: BMI 22.8
[2025-02-05 09:43] VITALS: BP 150/82; PULSE 84; RESP 18; TEMP 36.8; O2SAT 100
--- NOTE | 2025-02-05 09:50 | EDNOTE_ITS ---
<Statement entered by Marylou Andersen MD - 02/05/25 17:56> As co-signing physician, I was present and available for consult prn. I concur with the plan and care as documented by the midlevel provider. ED Abdominal Pain RME/HPI General Chief Complaint: Abdominal Pain Stated complaint: abd pain s/p kidney stone removal surgery Time seen by provider: 02/05/25 09:36 Arrival date/time: 02/05/25 09:14 64-year-old male with a recent surgery to remove a bladder stone presents to the emergency room with a chief complaint of lower pelvic pain x 4 days Source: patient Mode of arrival: ambulatory Limitations: no limitations Related Data Previous Rx's ?Medication ?Instructions ?Recorded hydrocodone 5 mg-acetaminophen 325 1 tab PO BID PRN pa in #10 tabs 09/20/ mg tablet ibuprofen 800 mg tablet 800 mg PO TID PRN pain #30 t abs 09/20/24 tamsulosin 0.4 mg capsule (Flomax) 0.4 mg PO QDAY #20 caps 10/01/24 acetaminophen 300 mg-codeine 30 mg 1 tab PO Q8H PRN pa in #20 tabs 10/26/24 tablet acetaminophen 300 mg-codeine 30 mg 1 tab PO Q8H PRN pa in #20 tabs 10/26/24 tablet hydrocodone 5 mg-acetaminophen 325 1 tab PO BID PRN pa in #6 tabs 10/29/24 mg tablet ketorolac 10 mg tablet 10 mg PO Q8H #10 tabs hydrocodone 5 mg-acetaminophen 325 1 tab PO BID PRN pa in #14 tabs 11/09/24 mg tablet acetaminophen 300 mg-codeine 30 mg 1 tab PO Q8H PRN pa in #20 tabs 11/11/24 tablet ibuprofen 600 mg tablet 600 mg PO Q6H PRN pain #30 t abs 11/11/24 acetaminophen 300 mg-codeine 30 mg 1 tab PO Q8H PRN pa in #20 tabs 12/14/24 tablet tamsulosin 0.4 mg capsule (Flomax) 0.4 mg PO QDAY #20 caps 12/14/24 ketorolac 10 mg tablet 10 mg PO Q6H PRN pain #30 ta bs 12/18/24 hydrocodone 5 mg-acetaminophen 325 1 tab PO BID PRN pa in #10 tabs 12/26/ mg tablet hydrocodone 5 mg-acetaminophen 325 1 tab PO BID PRN pa in #10 tabs 12/27/ mg tablet ciprofloxacin HCl 500 mg tablet 500 mg PO BID #14 tabs 12/28/24 (Cipro) hydrocodone 5 mg-acetaminophen 325 2 tab PO Q8H PRN pa in #20 tabs 12/29/ mg tablet acetaminophen 500 mg tablet 1,000 mg (2 x 500 mg) PO Q 6H PRN 01/30/25 (Tylenol Extra Strength) pain #30 tabs Allergies Allergy/AdvReac Type Severity Reaction Status Date / Time No Known Allergies Allergy Verified 02/03/25 17:15 Review of Systems Review of Systems Systems Reviewed: All systems reviewed, normal except as documented Constitutional Constitutional: Reports system reviewed and no additional complaints, except as documented, Denies fatigue, Denies fever(s), Denies headache(s) and Denies weakness Eyes Eyes: Reports system reviewed and no additional complaints, except as documented, Denies blurry vision and Denies change in vision ENT Ears, Nose, Mouth, and Throat: Reports system reviewed and no additional complaints, except as documented, Denies otalgia, Denies headache(s), Denies nasal congestion, Denies throat swelling and Denies vertigo Cardiovascular Cardiovascular: Reports system reviewed and no additional complaints, except as documented, Denies chest pain, Denies dyspnea and Denies dyspnea on exertion Respiratory Respiratory: Reports system reviewed and no additional complaints, except as documented, Denies chest congestion, Denies cough, Denies dyspnea, Denies dyspnea on exertion and Denies wheezing Gastrointestinal Gastrointestinal: Reports system reviewed and no additional complaints, except as documented, Denies abdominal pain, Denies cramping, Denies nausea and Denies vomiting Genitourinary Genitourinary: Reports system reviewed and no additional complaints, except as documented, Denies dysuria and Denies hematuria Musculoskeletal Musculoskeletal: Reports system reviewed and no additional complaints, except as documented and Denies back pain Integumentary/Breasts Skin/Breast: Reports system reviewed and no additional complaints, except as documented, Reports pruritus, Reports rash, Reports skin pain and Reports wounds Neurologic Neurologic: Reports system reviewed and no additional complaints, except as documented, Denies confusion, Denies headache(s), Denies lack of coordination, Denies vertigo and Denies weakness Psychiatric Psychiatric: Reports system reviewed and no additional complaints, except as documented, Denies anxiety, Denies confusion, Denies depression, Denies paranoia, Denies suicidal ideation and Denies tactile hallucinations Endocrine Endocrine: Reports system reviewed and no additional complaints, except as documented and Denies fatigue Hematologic/Lymphatic Hematologic/Lymphatic: Reports system reviewed and no additional complaints, except as documented and Denies lymphadenopathy Allergic/Immunologic Allergic/Immunologic: Reports system reviewed and no additional complaints, except as documented, Denies throat swelling, Denies urticaria and Denies wheezing Past Medical History Past Medical History NEUROLOGIC: Negative Neurological Disorders or Seizures CARDIAC: Negative Cardiac Disorders or Congestive Heart Failure RESPIRATORY: Negative Chronic Obstructive Pulmonary Disease (COPD) or Asthma GENITOURINARY: Positive Genitourinary Disorders, Kidney Stones and Benign Prostatic Hyperplasia; Negative Renal Disease MUSCULOSKELETAL: Positive Musculoskeletal Disorders and Degenerative Joint Disease ENDOCRINE: Negative Diabetes Mellitus Type 1 or Diabetes Mellitus Type 2 HEMATOLOGIC: Negative Sickle Cell Disease OTHER HISTORY: Negative Blood Transfusions, Blood Transfusion Reaction or Anesthesia Reactions Social History SMOKING STATUS: Current some day smoker SUBSTANCE USE: does not use ED Exam General Limitations: Present no limitations General appearance: Present alert and in no apparent distress Head Head exam: Present atraumatic Eye Eye exam: Present normal appearance, PERRL and EOMI ENT ENT exam: Present normal exam, normal oropharynx and mucous membranes moist Neck Neck exam: Present normal inspection, full ROM and trachea midline Chest Chest inspection: Present normal inspection and symmetric chest wall rise Respiratory Respiratory exam: Present normal lung sounds bilaterally Cardiovascular Cardiovascular exam: Present regular rate, normal rhythm and normal heart sounds Abdominal Exam Abdominal exam: Present soft and normal bowel sounds Extremities Exam Extremities exam: Present normal inspection and full ROM Back Exam Back exam: Present normal inspection and full ROM Neurological Exam Neurological exam: Present alert, oriented X3 and CN II-XII intact Psychiatric Psychiatric exam: Present normal affect and normal mood Skin Skin exam: Present warm, dry, intact and normal color Expanded Skin Exam Type of lesion: Present other (Cellulitis to lower umbilical pelvic area) Distribution: Present abdomen Description: Present tenderness and erythematous Body image: 2 1. The patient had a recent bladder stone removal. At the site of his surgical incision the patient has began to develop some redness warmth and signs of infection. Course Quality Measures none Orders Category Date Time Status Wound Care X1 Care 02/05/25 09:46 Active Clindamycin Vial [Cleocin vial] Med 02/05/25 09:46 Discontinued 600 mg IM X1 ONE Ketorolac Inj [Toradol Inj] Med 02/05/25 09:46 Discontinued 30 mg IM X1 ONE Vital Signs Vital signs: Vital Signs Temperature 98.2 F 02/05/25 09:43 Pulse Rate 84 02/05/25 09:43 Respiratory Rate 18 02/05/25 09:43 Blood Pressure 150/82 H 02/05/25 09:43 Pulse Oximetry (%) 100 02/05/25 09:43 Oxygen Delivery Method Room Air 02/05/25 09:43 Abdominal Pain MDM MDM Narrative MDM Narrative:: 64-year-old male with a recent surgery to remove a bladder stone presents to the emergency room with a chief complaint of lower pelvic pain x 4 days Patient is hemodynamically stable and in no apparent distress. Patient is not tachycardic not tachypneic and is afebrile Physical examination shows an area of about 2 cm x 2 cm of warmth, erythema, and some mild swelling. The site is right under the umbilicus in between his pelvic area. The patient recently had a bladder stone removal and at the surgical site the patient has began to develop the symptoms of infection currently there is no drainage pus or any swelling. A dressing was placed in the area as well as the area was cleaned. Patient was discharged and educated to follow-up with primary care provider in the next 24 to 48 hours and return to the emergency room for any evidence of worsening signs or symptoms Patient data External records reviewed:: [facility] previous records Clinical information provided by:: patient Social determinants that could affect healthcare access:: none Patient has the following chronic illnesses:: No chronic illness How is presenting disease/condition affected by chronic disease/condition?: no chronic disease Evaluation data The following diagnostics were reviewed and interpreted by me:: lab results and radiology exam(s) Lab and/or radiology exams considered but not ordered:: Labs and radiology exams considered and ordered Interpretation Summary: N/A Medications / Prescriptions Medications or Prescriptions considered but not ordered:: Medication given Medication administrations:: Medication Administration History Discontinued Medications Clindamycin Phosphate (Clindamycin Phos Inj 150 Mg/Ml Vial 6 Ml) 600 mg IM X1 ONE Stop: 02/05/25 09:47 Last Admin: 02/05/25 09:57 Dose: 600 mg Documented By: DELMY Ketorolac Tromethamine (Ketorolac Inj 60 Mg/2 Ml Vial) 30 mg IM X1 ONE Stop: 02/05/25 09:47 Last Admin: 02/05/25 09:56 Dose: 30 mg Documented By: DELMY Medication given Consultations Consultation(s) initiated? (list below): No Diagnosis Differential diagnosis abdominal pain: other (Surgical site infection/cellulitis/abscess) Most likely diagnosis given after review of the tests above:: Surgical site infection Admission Indicated Admission indicated?: not indicated Admission Request Was there a request for admission?: No Disposition Plan Disposition Plan: Discharge Discharge Attestation Discharge Attestation: The patient and all family members were given an opportunity to ask questions and understood the discharge instructions. Discharge instructions specifically effects, indications for sooner follow up or return to the emergency department, and the expected course of current diagnosis. Patient condition: Stable Discharge Plan Plan Patient Disposition: HOME (Self Care) Discharge Disposition comment: Stable Prescriptions/Referrals Prescriptions/Med Rec: No Action tamsulosin [Flomax] 0.4 mg capsule 0.4 mg PO QDAY Qty: 20 0RF acetaminophen-codeine 300-30 mg tablet 1 tab PO Q8H PRN (Reason: pain) Qty: 20 0RF acetaminophen-codeine 300-30 mg tablet 1 tab PO Q8H PRN (Reason: pain) Qty: 20 0RF hydrocodone-acetaminophen 5-325 mg tablet 1 tab PO BID MDD 10 PRN (Reason: pain) Qty: 14 0RF ibuprofen 600 mg tablet 600 mg PO Q6H PRN (Reason: pain) Qty: 30 0RF acetaminophen-codeine 300-30 mg tablet 1 tab PO Q8H PRN (Reason: pain) Qty: 20 0RF hydrocodone-acetaminophen 5-325 mg tablet 1 tab PO BID MDD 10 PRN (Reason: pain) Qty: 10 0RF ibuprofen 800 mg tablet 800 mg PO TID PRN (Reason: pain) Qty: 30 0RF hydrocodone-acetaminophen 5-325 mg tablet 1 tab PO BID MDD 10 PRN (Reason: pain) Qty: 10 0RF hydrocodone-acetaminophen 5-325 mg tablet 1 tab PO BID MDD 10mg PRN (Reason: pain) Qty: 6 0RF ketorolac 10 mg tablet 10 mg PO Q8H Qty: 10 0RF Rx Instructions: maximum total duration of 5 days from all oral, intranasal, or parenteral formulations acetaminophen-codeine 300-30 mg tablet 1 tab PO Q8H PRN (Reason: pain) Qty: 20 0RF tamsulosin [Flomax] 0.4 mg capsule 0.4 mg PO QDAY Qty: 20 0RF ketorolac 10 mg tablet 10 mg PO Q6H PRN (Reason: pain) Qty: 30 0RF Rx Instructions: maximum total duration of 5 days from all oral, intranasal, or parenteral formulations hydrocodone-acetaminophen 5-325 mg tablet 1 tab PO BID MDD 10mg PRN (Reason: pain) Qty: 10 0RF ciprofloxacin HCl [Cipro] 500 mg tablet 500 mg PO BID Qty: 14 0RF hydrocodone-acetaminophen 5-325 mg tablet 2 tab PO Q8H MDD 6 PRN (Reason: pain) Qty: 20 0RF acetaminophen [Tylenol Extra Strength] 500 mg tablet 1,000 mg PO Q6H PRN (Reason: pain) Qty: 30 0RF Problem List Clinical Impression: Surgical site infection Patient/Caregiver Discharge Instructions Education Materials: Preventing Surgical Site Infections, ED Post Op Wound Check, Infection Additional Instructions: Please keep and follow-up with your surgeon this . If you begin to develop some redness and swelling to your surgical site. Please keep this area clean dry and with a dressing as your belt buckle might be causing irritation to the area. A shot of antibiotics was given to you. In the emergency room and antibiotics were prescribed to your pharmacy. For any evidence of worsening signs or symptoms please return to the emergency room immediately Print Language: Arabic Stand Alone Forms: Latoya Award Info., Work/School Release, Patient Portal Info Letter PA/CECILIA Supervising Physician PA/CECILIA Supervising Physician: Dr. Patrick
[2025-02-05] MEDS: KETOROLAC INJ 60 MG/2 ML VIAL 30 MG IM (09:56)
[2025-02-05] MEDS: CLINDAMYCIN PHOS INJ 150 MG/ML VIAL 6 ML 600 MG IM (09:57)
== END 2025-02-05 10:10 | disposition home or self-care (01) ==
LOC: SERX 10:21
PROVIDERS: Emergency Provider Emergency Medicine; PCP Family Medicine
DX: R10.9 Unspecified abdominal pain (principal)
CPT/HCPCS: 96372; 99282; J0736; J1885

== ENCOUNTER 2025-02-06 16:35 | Emergency (ER) | payer MEDICAID, SELFPAY ==
[2025-02-06 16:42] VITALS: BP 162/74; PULSE 87; RESP 20; TEMP 36.7; O2SAT 97; BMI 24.2
--- NOTE | 2025-02-06 16:48 | EDRME_ITS ---
Rapid Medical Screening Exam [facility] Arrival date/time: 02/06/25 16:35 Chief Complaint: Urogenital-Male Time Seen by Provider: 02/06/25 17:48 Vital signs: Vital Signs Temperature 98.1 F 02/06/25 16:42 Pulse Rate 87 02/06/25 16:42 Respiratory Rate 20 02/06/25 16:42 Blood Pressure 162/74 H 02/06/25 16:42 Pulse Oximetry (%) 97 02/06/25 16:42 Oxygen Delivery Method Room Air 02/06/25 16:42 [facility] Narrative: 64-year-old male presents to the ER complaining of increased pain, pus to his wound overlying his bladder which was from his bladder calculus removal surgery which was performed 2 weeks prior and present now by a urologist after hospital. Patient states his Melgar bag is still collecting urine. Denies fever, vomiting. Exam: Constitutional: Vital Signs Reviewed. Well appearing. No acute distress. Not toxic appearing. Head: Normocephalic, atraumatic. Eyes: Conjunctiva clear. ENT: Mucous membranes moist. Neck: Trachea midline. Normal range of motion. No nuchal rigidity. Respiratory: Normal effort. No respiratory distress or accessory muscle use. Neuro: Alert and oriented. Speech normal. No focal gross motor or sensory deficits observed. Skin: Warm, dry, normal color. Psych: Pleasant. Normal affect. Cooperative. Clinical Impression: Abdominal pain unspecified
--- NOTE | 2025-02-06 17:00 | PC.NURSE ---
Gave urine cup to patient, informing patient that the provider wants to do bloodwork and a urine analysis. Patient declined both blood work and urine sample. Patient stated he just wants medicine for pain
--- NOTE | 2025-02-06 17:20 | PC.NURSE ---
PT CALLED INSIDE AND OUTSIDE ED LOBBY; NO RESPONSE AT THIS TIME
--- NOTE | 2025-02-06 17:39 | PC.NURSE ---
PT CALLED INSIDE AND OUTSIDE LOBBY; NO RESPONSE AT THIS TIME
--- NOTE | 2025-02-06 18:09 | PC.NURSE ---
PT CALLED INSIDE AND OUTSIDE LOBBY FOR THE THIRD TIME; NO RESPONSE
== END 2025-02-06 18:13 | disposition left against medical advice (07) ==
PROVIDERS: Emergency Provider Emergency Medicine; PCP Family Medicine
DX: R10.9 Unspecified abdominal pain (principal); Z53.29 Procedure and treatment not carried out because of patient's decision for other reasons
CPT/HCPCS: 80053; 81001; 83690; 85025; 99281

== ENCOUNTER 2025-02-07 18:42 | Emergency (ER) | payer MEDICAID, SELFPAY ==
[2025-02-07 18:43] VITALS: BMI 22.8
[2025-02-07 19:00] VITALS: BP 146/70; PULSE 103; RESP 20; TEMP 36.7; O2SAT 98
--- NOTE | 2025-02-07 19:25 | EDNOTE_ITS ---
ED Wound/Laceration-RME/HPI General Chief Complaint: Abdominal Pain Stated Complaint: MID ABD PAIN FROM INCISION SITE S/P KIDNEY STONES Time Seen by Provider: 02/07/25 19:16 Arrival date/time: 02/07/25 18:42 64-year-old male patient with significant history of chronic bladder pain. Patient's been having bladder pain for several months, had a surgery in [place] last month for removal of bladder stone, today came in for pain, described as dull ache, severity moderate patient also had wound dehiscence noted on the inferior incision. No fever no vomiting no other complaints noted patient supposed to see his urologist today however he missed it. Came in instead for pain control. Patient is ambulatory. Related Data Previous Rx's ?Medication ?Instructions ?Recorded hydrocodone 5 mg-acetaminophen 325 1 tab PO BID PRN pa in #10 tabs 09/20/ mg tablet ibuprofen 800 mg tablet 800 mg PO TID PRN pain #30 t abs 09/20/24 tamsulosin 0.4 mg capsule (Flomax) 0.4 mg PO QDAY #20 caps 10/01/24 acetaminophen 300 mg-codeine 30 mg 1 tab PO Q8H PRN pa in #20 tabs 10/26/24 tablet acetaminophen 300 mg-codeine 30 mg 1 tab PO Q8H PRN pa in #20 tabs 10/26/24 tablet hydrocodone 5 mg-acetaminophen 325 1 tab PO BID PRN pa in #6 tabs 10/29/24 mg tablet ketorolac 10 mg tablet 10 mg PO Q8H #10 tabs hydrocodone 5 mg-acetaminophen 325 1 tab PO BID PRN pa in #14 tabs 11/09/24 mg tablet acetaminophen 300 mg-codeine 30 mg 1 tab PO Q8H PRN pa in #20 tabs 11/11/24 tablet ibuprofen 600 mg tablet 600 mg PO Q6H PRN pain #30 t abs 11/11/24 acetaminophen 300 mg-codeine 30 mg 1 tab PO Q8H PRN pa in #20 tabs 12/14/24 tablet tamsulosin 0.4 mg capsule (Flomax) 0.4 mg PO QDAY #20 caps 12/14/24 ketorolac 10 mg tablet 10 mg PO Q6H PRN pain #30 ta bs 12/18/24 hydrocodone 5 mg-acetaminophen 325 1 tab PO BID PRN pa in #10 tabs 12/26/25 mg tablet hydrocodone 5 mg-acetaminophen 325 1 tab PO BID PRN pa in #10 tabs 12/27/24 mg tablet ciprofloxacin HCl 500 mg tablet 500 mg PO BID #14 tabs 12/28/24 (Cipro) hydrocodone 5 mg-acetaminophen 325 2 tab PO Q8H PRN pa in #20 tabs 12/29/24 mg tablet acetaminophen 500 mg tablet 1,000 mg (2 x 500 mg) PO Q 6H PRN 01/30/25 (Tylenol Extra Strength) pain #30 tabs doxycycline monohydrate 100 mg 100 mg PO BID #14 tabs 02/07/25 tablet famotidine 40 mg tablet (Pepcid) 40 mg PO BID #20 tabs 02/07/25 ketorolac 10 mg tablet 10 mg PO Q8H PRN pain 5 days #20 02/07/25 tabs Allergies Allergy/AdvReac Type Severity Reaction Status Date / Time No Known Allergies Allergy Verified 02/07/25 18:46 Review of Systems Review of Systems Narrative Review of Systems: Review of system reviewed and within normal limits except mentioned in HPI ED Exam Narrative Physical exam: VITAL SIGNS: Reviewed. GENERAL APPEARANCE: Alert and interactive, follows commands, no acute distress, HEAD AND FACE: Non-traumatic. ENT: PERRL, pink conjunctivitis, eyelid no trauma, Mucous membrane moist. NECK: Supple, nontender, no nuchal rigidity. CHEST: No tenderness, no crepitus, no paradoxical movement, no retractions. LUNGS: Clear, well ventilated, symmetric, no rales, no wheezing, no ronchi, no s tridor, good breath sounds bilaterally. HEART: Regular rate, regular rhythm, no murmur, no gallops. ABDOMEN: Soft, positive bowel sounds, nondistended, no guarding, + wound dehiscence noted on the inferior incision site suprapubic area, no pus noted no redness noted nonfluctuant with tenderness, no rebound, no masses, RECTAL: Deferred. GENITAL: Deferred. NEUROLOGICAL: Gross motor function intact sensory function intact, Appropriate for age. MUSCULOSKELETAL: low back nontender, full range of motion. EXTREMITIES: Nontender, full range of motion. SKIN: Color pink, dry, no rash, no lacerations, no abrasions, no contusions. LYMPHATICS: Deferred. Course Quality Measures none Orders Category Date Time Status Doxycycline [Vibramycin] Med 02/07/25 19:19 Discontinued 100 mg PO X1 ONE Ketorolac Inj [Toradol Inj] Med 02/07/25 19:19 Discontinued 30 mg IM X1 ONE Vital Signs Vital signs: Vital Signs Temperature 98.1 F 02/07/25 19:00 Pulse Rate 103 H 02/07/25 19:00 Respiratory Rate 20 02/07/25 19:00 Blood Pressure 146/70 H 02/07/25 19:00 Pulse Oximetry (%) 98 02/07/25 19:00 Oxygen Delivery Method Room Air 02/07/25 19:00 Wound / Laceration MDM Narrative MDM Narrative:: 64-year-old male patient with significant history of chronic bladder pain. Patient's been having bladder pain for several months, had a surgery in [place] last month for removal of bladder stone, today came in for pain, described as dull ache, severity moderate patient also had wound dehiscence noted on the inferior incision. No fever no vomiting no other complaints noted patient supposed to see his urologist today however he missed it. Came in instead for pain control. Patient is ambulatory. Imaging workup started this time patient received doxycycline and Toradol IM. Patient was advised to see urologist in [place] in few days. Patient told me that he is going to see them. Patient data External records reviewed:: None Clinical information provided by:: patient Social determinants that could affect healthcare access:: none Patient has the following chronic illnesses:: Chronic bladder pain How is presenting disease/condition affected by chronic disease/condition?: exacerbated by Evaluation data The following diagnostics were reviewed and interpreted by me:: other (specify) Lab and/or radiology exams considered but not ordered:: None Interpretation Summary: None Medications / Prescriptions Medications or Prescriptions considered but not ordered:: None Medication administrations:: Medication Administration History Discontinued Medications Doxycycline Hyclate (Doxycycline 100 Mg Tablet) 100 mg PO X1 ONE Stop: 02/07/25 19:20 Ketorolac Tromethamine (Ketorolac Inj 30 Mg/Ml Vial) 30 mg IM X1 ONE Stop: 02/07/25 19:20 Toradol and doxycycline Consultations Consultation(s) initiated? (list below): No Diagnosis Wound Differential Diagnosis: other (Wound dehiscence, chronic bladder pain surgical wound infection) Most likely diagnosis given after review of the tests above:: Surgical site infection, bladder pain chronic Admission Indicated Admission indicated?: not indicated Admission Request Was there a request for admission?: No Disposition Plan Disposition Plan: Discharge Discharge Attestation Discharge Attestation: The patient was given an opportunity to ask questions and understood the discharge instructions. Discharge instructions specifically effects, indication s for sooner follow up or return to the emergency department, and the expected course of current diagnosis. Patient condition: Stable Discharge Plan Plan Patient Disposition: HOME (Self Care) Discharge Disposition comment: stable Prescriptions/Referrals Prescriptions/Med Rec: New doxycycline monohydrate 100 mg tablet 100 mg PO BID Qty: 14 0RF famotidine [Pepcid] 40 mg tablet 40 mg PO BID Qty: 20 0RF ketorolac 10 mg tablet 10 mg PO Q8H PRN (Reason: pain) 5 Days Qty: 20 0RF No Action tamsulosin [Flomax] 0.4 mg capsule 0.4 mg PO QDAY Qty: 20 0RF acetaminophen-codeine 300-30 mg tablet 1 tab PO Q8H PRN (Reason: pain) Qty: 20 0RF acetaminophen-codeine 300-30 mg tablet 1 tab PO Q8H PRN (Reason: pain) Qty: 20 0RF hydrocodone-acetaminophen 5-325 mg tablet 1 tab PO BID MDD 10 PRN (Reason: pain) Qty: 14 0RF ibuprofen 600 mg tablet 600 mg PO Q6H PRN (Reason: pain) Qty: 30 0RF acetaminophen-codeine 300-30 mg tablet 1 tab PO Q8H PRN (Reason: pain) Qty: 20 0RF hydrocodone-acetaminophen 5-325 mg tablet 1 tab PO BID MDD 10 PRN (Reason: pain) Qty: 10 0RF ibuprofen 800 mg tablet 800 mg PO TID PRN (Reason: pain) Qty: 30 0RF hydrocodone-acetaminophen 5-325 mg tablet 1 tab PO BID MDD 10 PRN (Reason: pain) Qty: 10 0RF hydrocodone-acetaminophen 5-325 mg tablet 1 tab PO BID MDD 10mg PRN (Reason: pain) Qty: 6 0RF ketorolac 10 mg tablet 10 mg PO Q8H Qty: 10 0RF Rx Instructions: maximum total duration of 5 days from all oral, intranasal, or parenteral formulations acetaminophen-codeine 300-30 mg tablet 1 tab PO Q8H PRN (Reason: pain) Qty: 20 0RF tamsulosin [Flomax] 0.4 mg capsule 0.4 mg PO QDAY Qty: 20 0RF ketorolac 10 mg tablet 10 mg PO Q6H PRN (Reason: pain) Qty: 30 0RF Rx Instructions: maximum total duration of 5 days from all oral, intranasal, or parenteral formulations hydrocodone-acetaminophen 5-325 mg tablet 1 tab PO BID MDD 10mg PRN (Reason: pain) Qty: 10 0RF ciprofloxacin HCl [Cipro] 500 mg tablet 500 mg PO BID Qty: 14 0RF hydrocodone-acetaminophen 5-325 mg tablet 2 tab PO Q8H MDD 6 PRN (Reason: pain) Qty: 20 0RF acetaminophen [Tylenol Extra Strength] 500 mg tablet 1,000 mg PO Q6H PRN (Reason: pain) Qty: 30 0RF Problem List Clinical Impression: Surgical site infection, Bladder pain Patient/Caregiver Discharge Instructions Discharge Activity: activity as tolerated Education Materials: Preventing Surgical Site Infections Additional Instructions: Thank you for the opportunity for serving you today. You are stable for discharged . You are advised to: Follow-up with your urologist next week Return to ED for worsening of symptoms Increase oral fluids Take medication as prescribed Print Language: Omani Stand Alone Forms: Latoya Award Info., Patient Portal Info Letter ALPHONSO/CECILIA Supervising Physician ALPHONSO/CECILIA Supervising Physician: MD Nasrin
[2025-02-07] MEDS: KETOROLAC INJ 30 MG/ML VIAL IM (19:54)
[2025-02-07] MEDS: DOXYCYCLINE 100 MG TABLET PO (19:54)
== END 2025-02-07 21:31 | disposition home or self-care (01) ==
PROVIDERS: Emergency Provider Emergency Medicine
DX: T81.41XA Infection following a procedure, superficial incisional surgical site, initial encounter (principal); R39.82 Chronic bladder pain; Z87.442 Personal history of urinary calculi
CPT/HCPCS: 96372; 99282; J1885; A9270

== ENCOUNTER 2025-02-08 10:58 | Emergency (ER) | payer MEDICAID, SELFPAY ==
[2025-02-08 11:14] VITALS: BP 135/69; PULSE 85; RESP 18; TEMP 36.6; O2SAT 99; BMI 21.5
--- NOTE | 2025-02-08 11:26 | PD.EDADULT ---
ED General RME/HPI General Chief complaint: General Adult/Misc Complain Stated complaint: WANTS SHOT FOR PAIN Time Seen by Provider: 02/08/25 11:17 Arrival date/time: 02/08/25 10:58 64-year-old male patient who is known to us, with significant history of chronic bladder pain status post bladder stone removal 3 weeks ago, came in for evaluation regarding bladder pain which is chronic, patient is asking for a Toradol shot. Patient was seen yesterday and was prescribed antibiotic for wound dehiscence. Patient denies any fever denies any vomiting denies any abdominal pain denies any other complaints no medication was taken prior to ER visit. Related Data Previous Rx's ?Medication ?Instructions ?Recorded hydrocodone 5 mg-acetaminophen 325 1 tab PO BID PRN pain #10 tabs 09/20/24 mg tablet ibuprofen 800 mg tablet 800 mg PO TID PRN pain #30 tabs 09/20/24 tamsulosin 0.4 mg capsule (Flomax) 0.4 mg PO QDAY #20 caps 10/01/24 acetaminophen 300 mg-codeine 30 mg 1 tab PO Q8H PRN pain #20 tabs 10/26/24 tablet acetaminophen 300 mg-codeine 30 mg 1 tab PO Q8H PRN pain #20 tabs 10/26/24 tablet hydrocodone 5 mg-acetaminophen 325 1 tab PO BID PRN pain #6 tabs 10/29/24 mg tablet ketorolac 10 mg tablet 10 mg PO Q8H #10 tabs 11/02/24 hydrocodone 5 mg-acetaminophen 325 1 tab PO BID PRN pain #14 tabs 11/09/24 mg tablet acetaminophen 300 mg-codeine 30 mg 1 tab PO Q8H PRN pain #20 tabs 11/11/24 tablet ibuprofen 600 mg tablet 600 mg PO Q6H PRN pain #30 tabs 11/11/24 acetaminophen 300 mg-codeine 30 mg 1 tab PO Q8H PRN pain #20 tabs 12/14/24 tablet tamsulosin 0.4 mg capsule (Flomax) 0.4 mg PO QDAY #20 caps 12/14/24 ketorolac 10 mg tablet 10 mg PO Q6H PRN pain #30 tabs 12/18/24 hydrocodone 5 mg-acetaminophen 325 1 tab PO BID PRN pain #10 tabs 09/30/25 mg tablet hydrocodone 5 mg-acetaminophen 325 1 tab PO BID PRN pain #10 tabs 12/27/24 mg tablet ciprofloxacin HCl 500 mg tablet 500 mg PO BID #14 tabs 12/28/24 (Cipro) hydrocodone 5 mg-acetaminophen 325 2 tab PO Q8H PRN pain #20 tabs 12/29/24 mg tablet acetaminophen 500 mg tablet 1,000 mg (2 x 500 mg) PO Q6H PRN 01/30/25 (Tylenol Extra Strength) pain #30 tabs doxycycline monohydrate 100 mg 100 mg PO BID #14 tabs 02/07/25 tablet famotidine 40 mg tablet (Pepcid) 40 mg PO BID #20 tabs 02/07/25 ketorolac 10 mg tablet 10 mg PO Q8H PRN pain 5 days #20 02/07/25 tabs Allergies Allergy/AdvReac Type Severity Reaction Status Date / Time No Known Allergies Allergy Verified 02/08/25 10:58 Review of Systems Review of Systems Narrative Review of Systems: Review of system reviewed and within normal limits except mentioned in HPI ED Exam Narrative Physical exam: VITAL SIGNS: Reviewed. GENERAL APPEARANCE: Alert and interactive, follows commands, no acute distress, HEAD AND FACE: Non-traumatic. ENT: PERRL, pink conjunctivitis, eyelid no trauma, Mucous membrane moist. NECK: Supple, nontender, no nuchal rigidity. CHEST: No tenderness, no crepitus, no paradoxical movement, no retractions. LUNGS: Clear, well ventilated, symmetric, no rales, no wheezing, no ronchi, no stridor, good breath sounds bilaterally. HEART: Regular rate, regular rhythm, no murmur, no gallops. ABDOMEN: Soft, positive bowel sounds, nondistended, no guarding, nontender, no rebound, no masses, RECTAL: Deferred. GENITAL: +1 cm wound dehiscence, no drainage noted, inferior aspect of the midline suprapubic incision no redness, nonfluctuant, bladder tenderness NEUROLOGICAL: Gross motor function intact sensory function intact, Appropriate for age. MUSCULOSKELETAL: low back nontender, full range of motion. EXTREMITIES: Nontender, full range of motion. SKIN: Color pink, dry, no rash, no lacerations, no abrasions, no contusions. LYMPHATICS: Deferred. Course Quality Measures none Orders Category Date Time Status Ketorolac Inj [Toradol Inj] Med 02/08/25 11:21 Discontinued 30 mg IM X1 ONE Vital Signs Vital signs: Vital Signs Temperature 97.9 F 02/08/25 11:14 Pulse Rate 85 02/08/25 11:14 Respiratory Rate 18 02/08/25 11:14 Blood Pressure 135/69 H 02/08/25 11:14 Pulse Oximetry (%) 99 02/08/25 11:14 Oxygen Delivery Method Room Air 02/08/25 11:14 Discharge Plan Plan Patient Disposition: HOME (Self Care) Discharge Disposition comment: Stable Prescriptions/Referrals Prescriptions/Med Rec: No Action tamsulosin [Flomax] 0.4 mg capsule 0.4 mg PO QDAY Qty: 20 0RF acetaminophen-codeine 300-30 mg tablet 1 tab PO Q8H PRN (Reason: pain) Qty: 20 0RF acetaminophen-codeine 300-30 mg tablet 1 tab PO Q8H PRN (Reason: pain) Qty: 20 0RF hydrocodone-acetaminophen 5-325 mg tablet 1 tab PO BID MDD 10 PRN (Reason: pain) Qty: 14 0RF ibuprofen 600 mg tablet 600 mg PO Q6H PRN (Reason: pain) Qty: 30 0RF acetaminophen-codeine 300-30 mg tablet 1 tab PO Q8H PRN (Reason: pain) Qty: 20 0RF hydrocodone-acetaminophen 5-325 mg tablet 1 tab PO BID MDD 10 PRN (Reason: pain) Qty: 10 0RF ibuprofen 800 mg tablet 800 mg PO TID PRN (Reason: pain) Qty: 30 0RF hydrocodone-acetaminophen 5-325 mg tablet 1 tab PO BID MDD 10 PRN (Reason: pain) Qty: 10 0RF hydrocodone-acetaminophen 5-325 mg tablet 1 tab PO BID MDD 10mg PRN (Reason: pain) Qty: 6 0RF ketorolac 10 mg tablet 10 mg PO Q8H Qty: 10 0RF Rx Instructions: maximum total duration of 5 days from all oral, intranasal, or parenteral formulations acetaminophen-codeine 300-30 mg tablet 1 tab PO Q8H PRN (Reason: pain) Qty: 20 0RF tamsulosin [Flomax] 0.4 mg capsule 0.4 mg PO QDAY Qty: 20 0RF ketorolac 10 mg tablet 10 mg PO Q6H PRN (Reason: pain) Qty: 30 0RF Rx Instructions: maximum total duration of 5 days from all oral, intranasal, or parenteral formulations hydrocodone-acetaminophen 5-325 mg tablet 1 tab PO BID MDD 10mg PRN (Reason: pain) Qty: 10 0RF ciprofloxacin HCl [Cipro] 500 mg tablet 500 mg PO BID Qty: 14 0RF hydrocodone-acetaminophen 5-325 mg tablet 2 tab PO Q8H MDD 6 PRN (Reason: pain) Qty: 20 0RF acetaminophen [Tylenol Extra Strength] 500 mg tablet 1,000 mg PO Q6H PRN (Reason: pain) Qty: 30 0RF doxycycline monohydrate 100 mg tablet 100 mg PO BID Qty: 14 0RF famotidine [Pepcid] 40 mg tablet 40 mg PO BID Qty: 20 0RF ketorolac 10 mg tablet 10 mg PO Q8H PRN (Reason: pain) 5 Days Qty: 20 0RF Problem List Clinical Impression: Bladder pain, Surgical site infection Patient/Caregiver Discharge Instructions Education Materials: Preventing Surgical Site Infections Additional Instructions: Thank you for the opportunity for serving you today. You are stable for discharged . You are advised to: Follow-up with your PCP in 1 to 2 days Return to ED for worsening of symptoms Increase oral fluids Take medication as prescribed yesterday Print Language: Greek Stand Alone Forms: Latoya Award Info., Patient Portal Info Letter ALPHONSO/CECILIA Supervising Physician ALPHONSO/CECILIA Supervising Physician: MD Darek MDM Narrative MDM hospital course (for use when minimal MDM required): 64-year-old male patient who is known to us, with significant history of chronic bladder pain status post bladder stone removal 3 weeks ago, came in for evaluation regarding bladder pain which is chronic, patient is asking for a Toradol shot. Patient was seen yesterday and was prescribed antibiotic for wound dehiscence. Patient denies any fever denies any vomiting denies any abdominal pain denies any other complaints no medication was taken prior to ER visit. Imaging workup results at this time, patient was given Toradol IM with significant improvement of pain. Patient showed me that he just picked up the antibiotic that was prescribed yesterday. Stable for charged home Advised him to follow-up with urologist in [place] next week. Medication Administration(s) Medication Administration History Discontinued Medications Ketorolac Tromethamine (Ketorolac Inj 30 Mg/Ml Vial) 30 mg IM X1 ONE Stop: 02/08/25 11:22 Diagnosis Differential Diagnosis ED Complaint MDM: Drug-seeking behavior, chronic bladder pain, wound dehiscence Diagnoses ruled out and/or further discussions: Chronic bladder pain, wound dehiscence
[2025-02-08] MEDS: KETOROLAC INJ 30 MG/ML VIAL IM (11:33)
== END 2025-02-08 11:40 | disposition home or self-care (01) ==
LOC: SERX 11:45
PROVIDERS: Emergency Provider Nurse Practitioner Primary Care; PCP Family Medicine
DX: T81.41XA Infection following a procedure, superficial incisional surgical site, initial encounter (principal); G89.29 Other chronic pain
CPT/HCPCS: 96372; 99282; J1885

== ENCOUNTER 2025-02-19 10:15 | Emergency (ER) | payer MEDICAID, SELFPAY ==
--- NOTE | 2025-02-19 10:49 | EDNOTE_ITS ---
ED Male Genitalurinary RME/HPI General Chief complaint: General Adult/Misc Complain Stated complaint: NEEDS SAINI CHANGED; DISTENDED BLADDER Time Seen by Provider: 02/19/25 10:36 Source: patient Arrival date/time: 02/19/25 10:15 64-year-old male with no known medical history presents to the emergency room with a chief complaint of urinary retention and a distended urinary bladder since waking up this morning. Patient states he recently had a surgery done to remove bladder stones. Mode of arrival: ambulatory Limitations: no limitations Related Data Previous Rx's ?Medication ?Instructions ?Recorded hydrocodone 5 mg-acetaminophen 325 1 tab PO BID PRN pa in #10 tabs 09/20/ mg tablet ibuprofen 800 mg tablet 800 mg PO TID PRN pain #30 t abs 09/20/24 tamsulosin 0.4 mg capsule (Flomax) 0.4 mg PO QDAY #20 caps 10/01/24 acetaminophen 300 mg-codeine 30 mg 1 tab PO Q8H PRN pa in #20 tabs 10/26/24 tablet acetaminophen 300 mg-codeine 30 mg 1 tab PO Q8H PRN pa in #20 tabs 10/26/24 tablet hydrocodone 5 mg-acetaminophen 325 1 tab PO BID PRN pa in #6 tabs 10/29/24 mg tablet ketorolac 10 mg tablet 10 mg PO Q8H #10 tabs hydrocodone 5 mg-acetaminophen 325 1 tab PO BID PRN pa in #14 tabs 11/09/24 mg tablet acetaminophen 300 mg-codeine 30 mg 1 tab PO Q8H PRN pa in #20 tabs 11/11/24 tablet ibuprofen 600 mg tablet 600 mg PO Q6H PRN pain #30 t abs 11/11/24 acetaminophen 300 mg-codeine 30 mg 1 tab PO Q8H PRN pa in #20 tabs 12/14/24 tablet tamsulosin 0.4 mg capsule (Flomax) 0.4 mg PO QDAY #20 caps 12/14/24 ketorolac 10 mg tablet 10 mg PO Q6H PRN pain #30 ta bs 12/18/24 hydrocodone 5 mg-acetaminophen 325 1 tab PO BID PRN pa in #10 tabs 12/26/24 mg tablet hydrocodone 5 mg-acetaminophen 325 1 tab PO BID PRN pa in #10 tabs 12/27/24 mg tablet ciprofloxacin HCl 500 mg tablet 500 mg PO BID #14 tabs 12/28/24 (Cipro) hydrocodone 5 mg-acetaminophen 325 2 tab PO Q8H PRN pa in #20 tabs 12/29/24 mg tablet acetaminophen 500 mg tablet 1,000 mg (2 x 500 mg) PO Q 6H PRN 01/30/25 (Tylenol Extra Strength) pain #30 tabs doxycycline monohydrate 100 mg 100 mg PO BID #14 tabs 02/07/25 tablet famotidine 40 mg tablet (Pepcid) 40 mg PO BID #20 tabs 02/07/25 Allergies Allergy/AdvReac Type Severity Reaction Status Date / Time No Known Allergies Allergy Verified 02/19/25 10:17 Review of Systems Review of Systems Systems Reviewed: All systems reviewed, normal except as documented Constitutional Constitutional: Reports system reviewed and no additional complaints, except as documented, Denies fatigue, Denies fever(s), Denies headache(s) and Denies weakness Eyes Eyes: Reports system reviewed and no additional complaints, except as documented, Denies blurry vision and Denies change in vision ENT Ears, Nose, Mouth, and Throat: Reports system reviewed and no additional complaints, except as documented, Denies otalgia, Denies headache(s), Denies nasal congestion, Denies throat swelling and Denies vertigo Cardiovascular Cardiovascular: Reports system reviewed and no additional complaints, except as documented, Denies chest pain, Denies dyspnea and Denies dyspnea on exertion Respiratory Respiratory: Reports system reviewed and no additional complaints, except as documented, Denies chest congestion, Denies cough, Denies dyspnea, Denies dyspnea on exertion and Denies wheezing Gastrointestinal Gastrointestinal: Reports system reviewed and no additional complaints, except as documented, Denies abdominal pain, Denies cramping, Denies nausea and Denies vomiting Genitourinary Genitourinary: Reports system reviewed and no additional complaints, except as documented, Denies dysuria and Denies hematuria Musculoskeletal Musculoskeletal: Reports system reviewed and no additional complaints, except as documented and Denies back pain Integumentary/Breasts Skin/Breast: Reports system reviewed and no additional complaints, except as documented and Denies wounds Neurologic Neurologic: Reports system reviewed and no additional complaints, except as documented, Denies confusion, Denies headache(s), Denies lack of coordination, Denies vertigo and Denies weakness Psychiatric Psychiatric: Reports system reviewed and no additional complaints, except as documented, Denies anxiety, Denies confusion, Denies depression, Denies paranoia, Denies suicidal ideation and Denies tactile hallucinations Endocrine Endocrine: Reports system reviewed and no additional complaints, except as documented and Denies fatigue Hematologic/Lymphatic Hematologic/Lymphatic: Reports system reviewed and no additional complaints, except as documented and Denies lymphadenopathy Allergic/Immunologic Allergic/Immunologic: Reports system reviewed and no additional complaints, exc ept as documented, Denies throat swelling, Denies urticaria and Denies wheezing Past Medical History Past Medical History NEUROLOGIC: Negative Neurological Disorders or Seizures CARDIAC: Negative Cardiac Disorders or Congestive Heart Failure RESPIRATORY: Negative Chronic Obstructive Pulmonary Disease (COPD) or Asthma GENITOURINARY: Positive Genitourinary Disorders, Kidney Stones and Benign Prostatic Hyperplasia; Negative Renal Disease MUSCULOSKELETAL: Positive Musculoskeletal Disorders and Degenerative Joint Disease ENDOCRINE: Negative Diabetes Mellitus Type 1 or Diabetes Mellitus Type 2 HEMATOLOGIC: Negative Sickle Cell Disease OTHER HISTORY: Negative Blood Transfusions, Blood Transfusion Reaction or Anesthesia Reactions Social History SMOKING STATUS: Current every day smoker SUBSTANCE USE: does not use ED Exam General Limitations: Present no limitations General appearance: Present alert and in no apparent distress Head Head exam: Present atraumatic Eye Eye exam: Present normal appearance, PERRL and EOMI ENT ENT exam: Present normal exam, normal oropharynx and mucous membranes moist Neck Neck exam: Present normal inspection, full ROM and trachea midline Chest Chest inspection: Present normal inspection and symmetric chest wall rise Respiratory Respiratory exam: Present normal lung sounds bilaterally Cardiovascular Cardiovascular exam: Present regular rate, normal rhythm and normal heart sounds Abdominal Exam Abdominal exam: Present soft and normal bowel sounds Extremities Exam Extremities exam: Present normal inspection and full ROM Back Exam Back exam: Present normal inspection and full ROM Neurological Exam Neurological exam: Present alert, oriented X3 and CN II-XII intact Psychiatric Psychiatric exam: Present normal affect and normal mood Skin Skin exam: Present warm, dry, intact and normal color Course Quality Measures none Orders Category Date Time Status Saini to Leg Bag Routine Care 02/19/25 10:47 Ordered Urinary Catheter QS Care 02/19/25 10:47 Active Ketorolac Inj [Toradol Inj] Med 02/19/25 11:00 Discontinued 30 mg IM X1 ONE Lidocaine Jelly 2% Urojet [Xylocaine Jelly 2% Urojet] Med 02/19/25 10:47 Discontinued See Dose Instructions TOP X1 ONE Vital Signs Vital signs: Vital Signs Temperature 98 F 02/19/25 10:56 Pulse Rate 87 02/19/25 10:56 Respiratory Rate 18 02/19/25 10:56 Blood Pressure 131/89 H 02/19/25 10:56 Pulse Oximetry (%) 99 02/19/25 10:56 Oxygen Delivery Method Room Air 02/19/25 10:56 Urogenital - Male MDM Narrative MDM Narrative:: 64-year-old male with no known medical history presents to the emergency room with a chief complaint of urinary retention and a distended urinary bladder since waking up this morning. Patient states he recently had a surgery done to remove bladder stones. Patient is hemodynamically stable and in no apparent distress Physical examination shows a urinary catheter that is clogged up. Patient states as of 2 hours ago it has not been draining much urine. Patient denies any abdominal pain Saini catheter was replaced with no complications. The new catheter is draining urine. Patient has an appointment with his urologist on March 01 Patient was discharged and educated to follow-up with primary care provider in the next 24 to 48 hours and return to the emergency room for any evidence of worsening signs or symptoms Patient data External records reviewed:: [facility] previous records Clinical information provided by:: patient Social determinants that could affect healthcare access:: none Patient has the following chronic illnesses:: No chronic illness How is presenting disease/condition affected by chronic disease/condition?: no chronic disease Evaluation data The following diagnostics were reviewed and interpreted by me:: lab results and radiology exam(s) Lab and/or radiology exams considered but not ordered:: Labs and radiology exams considered and ordered Interpretation Summary: N/A Medications / Prescriptions Medications or Prescriptions considered but not ordered:: Medication given Medication administrations:: Medication Administration History Discontinued Medications Ketorolac Tromethamine (Ketorolac Inj 60 Mg/2 Ml Vial) 30 mg IM X1 ONE Stop: 02/19/25 11:01 Last Admin: 02/19/25 11:24 Dose: 30 mg Documented By: OA Lidocaine HCl (Lidocaine Jelly 2% (Urojet) 10 Ml Tube) 0 ml TOP X1 ONE Stop: 02/19/25 10:48 Last Admin: 02/19/25 11:25 Dose: 10 ml Documented By: OA Medication given Consultations Consultation(s) initiated? (list below): No Diagnosis Urogenital Male Differential Diagnosis: urinary tract infection, acute retention of urine and other (Encounter for Saini catheter replacement) Most likely diagnosis given after review of the tests above:: Encounter for Saini catheter placement Admission Indicated Admission indicated?: not indicated Admission Request Was there a request for admission?: No Disposition Plan Disposition Plan: Discharge Discharge Attestation Discharge Attestation: The patient and all family members were given an opportunity to ask questions and understood the discharge instructions. Discharge instructions specifically effects, indications for sooner follow up or return to the emergency department, and the expected course of current diagnosis. Patient condition: Stable Discharge Plan Plan Patient Disposition: HOME (Self Care) Discharge Disposition comment: Stable Prescriptions/Referrals Prescriptions/Med Rec: No Action tamsulosin [Flomax] 0.4 mg capsule 0.4 mg PO QDAY Qty: 20 0RF acetaminophen-codeine 300-30 mg tablet 1 tab PO Q8H PRN (Reason: pain) Qty: 20 0RF acetaminophen-codeine 300-30 mg tablet 1 tab PO Q8H PRN (Reason: pain) Qty: 20 0RF hydrocodone-acetaminophen 5-325 mg tablet 1 tab PO BID MDD 10 PRN (Reason: pain) Qty: 14 0RF ibuprofen 600 mg tablet 600 mg PO Q6H PRN (Reason: pain) Qty: 30 0RF acetaminophen-codeine 300-30 mg tablet 1 tab PO Q8H PRN (Reason: pain) Qty: 20 0RF hydrocodone-acetaminophen 5-325 mg tablet 1 tab PO BID MDD 10 PRN (Reason: pain) Qty: 10 0RF ibuprofen 800 mg tablet 800 mg PO TID PRN (Reason: pain) Qty: 30 0RF hydrocodone-acetaminophen 5-325 mg tablet 1 tab PO BID MDD 10 PRN (Reason: pain) Qty: 10 0RF hydrocodone-acetaminophen 5-325 mg tablet 1 tab PO BID MDD 10mg PRN (Reason: pain) Qty: 6 0RF ketorolac 10 mg tablet 10 mg PO Q8H Qty: 10 0RF Rx Instructions: maximum total duration of 5 days from all oral, intranasal, or parenteral formulations acetaminophen-codeine 300-30 mg tablet 1 tab PO Q8H PRN (Reason: pain) Qty: 20 0RF tamsulosin [Flomax] 0.4 mg capsule 0.4 mg PO QDAY Qty: 20 0RF ketorolac 10 mg tablet 10 mg PO Q6H PRN (Reason: pain) Qty: 30 0RF Rx Instructions: maximum total duration of 5 days from all oral, intranasal, or parenteral formulations hydrocodone-acetaminophen 5-325 mg tablet 1 tab PO BID MDD 10mg PRN (Reason: pain) Qty: 10 0RF ciprofloxacin HCl [Cipro] 500 mg tablet 500 mg PO BID Qty: 14 0RF hydrocodone-acetaminophen 5-325 mg tablet 2 tab PO Q8H MDD 6 PRN (Reason: pain) Qty: 20 0RF acetaminophen [Tylenol Extra Strength] 500 mg tablet 1,000 mg PO Q6H PRN (Reason: pain) Qty: 30 0RF doxycycline monohydrate 100 mg tablet 100 mg PO BID Qty: 14 0RF famotidine [Pepcid] 40 mg tablet 40 mg PO BID Qty: 20 0RF Referrals: No Primary/Family,Physician [Primary Care Provider] - In 1 week Problem List Clinical Impression: Encounter for Saini catheter replacement Patient/Caregiver Discharge Instructions Additional Instructions: Please follow-up with your primary care provider in the next 24 to 48 hours For any evidence of worsening signs or symptoms return to emergency room immediately Print Language: Ukrainian Stand Alone Forms: Latoya Award Info., Work/School Release, Patient Portal Info Letter
[2025-02-19 10:56] VITALS: BP 131/89; PULSE 87; RESP 18; TEMP 36.6; O2SAT 99; BMI 26.8
[2025-02-19] MEDS: KETOROLAC INJ 60 MG/2 ML VIAL 30 MG IM (11:24)
[2025-02-19] MEDS: LIDOCAINE JELLY 2% (Urojet) 10 ML TUBE TOP (11:25)
== END 2025-02-19 11:51 | disposition home or self-care (01) ==
PROVIDERS: Emergency Provider Nurse Practitioner Family
DX: Z46.6 Encounter for fitting and adjustment of urinary device (principal)
CPT/HCPCS: 51702; 96372; 99282; A4314; J1885

== ENCOUNTER 2025-03-12 07:09 | Emergency (ER) | payer MEDICAID, SELFPAY ==
[2025-03-12 07:15] VITALS: BP 146/74; PULSE 88; RESP 18; TEMP 36.4; O2SAT 98
[2025-03-12 07:16] VITALS: BMI 22.9
--- NOTE | 2025-03-12 07:35 | EDNOTE_ITS ---
<Statement entered by Marylou Andersen MD - 03/13/25 17:40> As co-signing physician, I was present and available for consult prn. I concur with the plan and care as documented by the midlevel provider. ED Male Genitalurinary RME/HPI General Chief complaint: Urogenital-Male Stated complaint: CHANGE SAINI CATH Time Seen by Provider: 03/12/25 07:31 Source: patient Arrival date/time: 03/12/25 07:09 64-year-old male with a history of chronic Saini catheter, BPH, and recent bladder stone surgery presents to the emergency room with a chief complaint of needing his Saini catheter replaced due to it not draining x 1 day Mode of arrival: ambulatory Limitations: no limitations Related Data Previous Rx's ?Medication ?Instructions ?Recorded hydrocodone 5 mg-acetaminophen 325 1 tab PO BID PRN pa in #10 tabs 09/20/24 mg tablet ibuprofen 800 mg tablet 800 mg PO TID PRN pain #30 t abs 09/20/24 tamsulosin 0.4 mg capsule (Flomax) 0.4 mg PO QDAY #20 caps 10/01/24 acetaminophen 300 mg-codeine 30 mg 1 tab PO Q8H PRN pa in #20 tabs 10/26/24 tablet acetaminophen 300 mg-codeine 30 mg 1 tab PO Q8H PRN pa in #20 tabs 10/26/24 tablet hydrocodone 5 mg-acetaminophen 325 1 tab PO BID PRN pa in #6 tabs 10/29/24 mg tablet ketorolac 10 mg tablet 10 mg PO Q8H #10 tabs hydrocodone 5 mg-acetaminophen 325 1 tab PO BID PRN pa in #14 tabs 11/09/24 mg tablet acetaminophen 300 mg-codeine 30 mg 1 tab PO Q8H PRN pa in #20 tabs 11/11/24 tablet ibuprofen 600 mg tablet 600 mg PO Q6H PRN pain #30 t abs 11/11/24 acetaminophen 300 mg-codeine 30 mg 1 tab PO Q8H PRN pa in #20 tabs 12/14/24 tablet tamsulosin 0.4 mg capsule (Flomax) 0.4 mg PO QDAY #20 caps 12/14/24 ketorolac 10 mg tablet 10 mg PO Q6H PRN pain #30 ta bs 12/18/24 hydrocodone 5 mg-acetaminophen 325 1 tab PO BID PRN pa in #10 tabs 12/26/ mg tablet hydrocodone 5 mg-acetaminophen 325 1 tab PO BID PRN pa in #10 tabs 12/27/24 mg tablet ciprofloxacin HCl 500 mg tablet 500 mg PO BID #14 tabs 12/28/24 (Cipro) hydrocodone 5 mg-acetaminophen 325 2 tab PO Q8H PRN pa in #20 tabs 12/29/24 mg tablet acetaminophen 500 mg tablet 1,000 mg (2 x 500 mg) PO Q 6H PRN 01/30/25 (Tylenol Extra Strength) pain #30 tabs doxycycline monohydrate 100 mg 100 mg PO BID #14 tabs 02/07/25 tablet famotidine 40 mg tablet (Pepcid) 40 mg PO BID #20 tabs 02/07/25 Allergies Allergy/AdvReac Type Severity Reaction Status Date / Time No Known Allergies Allergy Verified 03/12/25 07:10 Review of Systems Review of Systems Systems Reviewed: All systems reviewed, normal except as documented Constitutional Constitutional: Reports system reviewed and no additional complaints, except as documented, Denies fatigue, Denies fever(s), Denies headache(s) and Denies weakness Eyes Eyes: Reports system reviewed and no additional complaints, except as documented, Denies blurry vision and Denies change in vision ENT Ears, Nose, Mouth, and Throat: Reports system reviewed and no additional complaints, except as documented, Denies otalgia, Denies headache(s), Denies nasal congestion, Denies throat swelling and Denies vertigo Cardiovascular Cardiovascular: Reports system reviewed and no additional complaints, except as documented, Denies chest pain, Denies dyspnea and Denies dyspnea on exertion Respiratory Respiratory: Reports system reviewed and no additional complaints, except as documented, Denies chest congestion, Denies cough, Denies dyspnea, Denies dyspnea on exertion and Denies wheezing Gastrointestinal Gastrointestinal: Reports system reviewed and no additional complaints, except as documented, Denies abdominal pain, Denies cramping, Denies nausea and Denies vomiting Genitourinary Genitourinary: Reports system reviewed and no additional complaints, except as documented, Reports difficulty urinating, Denies dysuria, Denies hematuria and Reports oliguria Musculoskeletal Musculoskeletal: Reports system reviewed and no additional complaints, except as documented and Denies back pain Integumentary/Breasts Skin/Breast: Reports system reviewed and no additional complaints, except as documented and Denies wounds Neurologic Neurologic: Reports system reviewed and no additional complaints, except as documented, Denies confusion, Denies headache(s), Denies lack of coordination, Denies vertigo and Denies weakness Psychiatric Psychiatric: Reports system reviewed and no additional complaints, except as documented, Denies anxiety, Denies confusion, Denies depression, Denies paranoia, Denies suicidal ideation and Denies tactile hallucinations Endocrine Endocrine: Reports system reviewed and no additional complaints, except as documented and Denies fatigue Hematologic/Lymphatic Hematologic/Lymphatic: Reports system reviewed and no additional complaints, except as documented and Denies lymphadenopathy Allergic/Immunologic Allergic/Immunologic: Reports system reviewed and no additional complaints, except as documented, Denies throat swelling, Denies urticaria and Denies wheezing Past Medical History Past Medical History NEUROLOGIC: Negative Neurological Disorders or Seizures CARDIAC: Negative Cardiac Disorders or Congestive Heart Failure RESPIRATORY: Negative Chronic Obstructive Pulmonary Disease (COPD) or Asthma GENITOURINARY: Positive Genitourinary Disorders, Kidney Stones and Benign Prostatic Hyperplasia; Negative Renal Disease MUSCULOSKELETAL: Positive Musculoskeletal Disorders and Degenerative Joint Disease ENDOCRINE: Negative Diabetes Mellitus Type 1 or Diabetes Mellitus Type 2 HEMATOLOGIC: Negative Sickle Cell Disease OTHER HISTORY: Negative Blood Transfusions, Blood Transfusion Reaction or Anesthesia Reactions Social History SMOKING STATUS: Current every day smoker SUBSTANCE USE: does not use ED Exam General Limitations: Present no limitations General appearance: Present alert and in no apparent distress Head Head exam: Present atraumatic Eye Eye exam: Present normal appearance, PERRL and EOMI ENT ENT exam: Present normal exam, normal oropharynx and mucous membranes moist Neck Neck exam: Present normal inspection, full ROM and trachea midline Chest Chest inspection: Present normal inspection and symmetric chest wall rise Respiratory Respiratory exam: Present normal lung sounds bilaterally Cardiovascular Cardiovascular exam: Present regular rate, normal rhythm and normal heart sounds Abdominal Exam Abdominal exam: Present soft, tenderness and normal bowel sounds; Absent distention, guarding, rebound or rigidity Abdominal tenderness: Present suprapubic and mild Extremities Exam Extremities exam: Present normal inspection and full ROM Back Exam Back exam: Present normal inspection and full ROM Neurological Exam Neurological exam: Present alert, oriented X3 and CN II-XII intact Psychiatric Psychiatric exam: Present normal affect and normal mood Skin Skin exam: Present warm, dry, intact and normal color Course Quality Measures none Orders Category Date Time Status Saini [Urinary Catheter, Remove] ONCE Care 03/12/25 07:31 Active Saini [Urinary Catheter] QS Care 03/12/25 07:31 Active Saini to Leg Bag Routine Care 03/12/25 07:32 Ordered Lidocaine Jelly 2% Urojet [Xylocaine Jelly 2% Urojet] Med 03/12/25 07:31 Discontinued See Dose Instructions TOP X1 ONE Vital Signs Vital signs: Vital Signs Temperature 97.5 F 03/12/25 07:15 Pulse Rate 88 03/12/25 07:15 Respiratory Rate 18 03/12/25 07:15 Blood Pressure 146/74 H 03/12/25 07:15 Pulse Oximetry (%) 98 03/12/25 07:15 Oxygen Delivery Method Room Air 03/12/25 07:15 Urogenital - Male MDM Narrative MDM Narrative:: 64-year-old male with a history of chronic Saini catheter, BPH, and recent bladder stone surgery presents to the emergency room with a chief complaint of needing his Saini catheter replaced due to it not draining x 1 day Patient is hemodynamically stable and in no apparent distress. Patient has a long urogenital medical history in which she recently had surgery to remove bladder stones. Patient states he has 1 more surgery that is scheduled. Patient states he sees his urologist at the beginning of the next month and has a scheduled surgery the week after that. Patient states he has a chronic Saini catheter. Patient denies any dysuria or hematuria. Saini catheter was replaced with no complications Patient was discharged and educated to follow-up with primary care provider in the next 24 to 48 hours and return to the emergency room for any evidence of worsening signs or symptoms Patient data External records reviewed:: [facility] previous records Clinical information provided by:: patient Social determinants that could affect healthcare access:: none Patient has the following chronic illnesses:: BPH How is presenting disease/condition affected by chronic disease/condition?: caused by Evaluation data The following diagnostics were reviewed and interpreted by me:: lab results and radiology exam(s) Lab and/or radiology exams considered but not ordered:: Labs and radiology Interpretation Summary: N/A Medications / Prescriptions Medications or Prescriptions considered but not ordered:: Medication given Medication administrations:: Medication Administration History Discontinued Medications Lidocaine HCl (Lidocaine Jelly 2% (Urojet) 10 Ml Tube) 0 ml TOP X1 ONE Stop: 03/12/25 07:32 Last Admin: 03/12/25 07:54 Dose: 10 ml Documented By: VG Medication given Consultations Consultation(s) initiated? (list below): No Diagnosis Urogenital Male Differential Diagnosis: urinary tract infection, urethritis and acute retention of urine Most likely diagnosis given after review of the tests above:: Acute retention of urine Admission Indicated Admission indicated?: not indicated Admission Request Was there a request for admission?: No Disposition Plan Disposition Plan: Discharge Discharge Attestation Discharge Attestation: The patient and all family members were given an opportunity to ask questions and understood the discharge instructions. Discharge instructions specifically effects, indications for sooner follow up or return to the emergency department, and the expected course of current diagnosis. Patient condition: Stable Discharge Plan Plan Patient Disposition: HOME (Self Care) Discharge Disposition comment: Stable Prescriptions/Referrals Prescriptions/Med Rec: No Action tamsulosin [Flomax] 0.4 mg capsule 0.4 mg PO QDAY Qty: 20 0RF acetaminophen-codeine 300-30 mg tablet 1 tab PO Q8H PRN (Reason: pain) Qty: 20 0RF acetaminophen-codeine 300-30 mg tablet 1 tab PO Q8H PRN (Reason: pain) Qty: 20 0RF hydrocodone-acetaminophen 5-325 mg tablet 1 tab PO BID MDD 10 PRN (Reason: pain) Qty: 14 0RF ibuprofen 600 mg tablet 600 mg PO Q6H PRN (Reason: pain) Qty: 30 0RF acetaminophen-codeine 300-30 mg tablet 1 tab PO Q8H PRN (Reason: pain) Qty: 20 0RF hydrocodone-acetaminophen 5-325 mg tablet 1 tab PO BID MDD 10 PRN (Reason: pain) Qty: 10 0RF ibuprofen 800 mg tablet 800 mg PO TID PRN (Reason: pain) Qty: 30 0RF hydrocodone-acetaminophen 5-325 mg tablet 1 tab PO BID MDD 10 PRN (Reason: pain) Qty: 10 0RF hydrocodone-acetaminophen 5-325 mg tablet 1 tab PO BID MDD 10mg PRN (Reason: pain) Qty: 6 0RF ketorolac 10 mg tablet 10 mg PO Q8H Qty: 10 0RF Rx Instructions: maximum total duration of 5 days from all oral, intranasal, or parenteral formulations acetaminophen-codeine 300-30 mg tablet 1 tab PO Q8H PRN (Reason: pain) Qty: 20 0RF tamsulosin [Flomax] 0.4 mg capsule 0.4 mg PO QDAY Qty: 20 0RF ketorolac 10 mg tablet 10 mg PO Q6H PRN (Reason: pain) Qty: 30 0RF Rx Instructions: maximum total duration of 5 days from all oral, intranasal, or parenteral formulations hydrocodone-acetaminophen 5-325 mg tablet 1 tab PO BID MDD 10mg PRN (Reason: pain) Qty: 10 0RF ciprofloxacin HCl [Cipro] 500 mg tablet 500 mg PO BID Qty: 14 0RF hydrocodone-acetaminophen 5-325 mg tablet 2 tab PO Q8H MDD 6 PRN (Reason: pain) Qty: 20 0RF acetaminophen [Tylenol Extra Strength] 500 mg tablet 1,000 mg PO Q6H PRN (Reason: pain) Qty: 30 0RF doxycycline monohydrate 100 mg tablet 100 mg PO BID Qty: 14 0RF famotidine [Pepcid] 40 mg tablet 40 mg PO BID Qty: 20 0RF Problem List Clinical Impression: Acute urinary retention Patient/Caregiver Discharge Instructions Education Materials: ED Urinary Retention, Male Additional Instructions: Please follow-up with your primary care provider in the next 24 to 48 hours Please keep your appointment with the urologist. For any evidence of worsening signs or symptoms return to the emergency room immediately Print Language: Danish Stand Alone Forms: Latoya Award Info., Work/School Release, Patient Portal Info Letter PA/CECILIA Supervising Physician PA/CECILIA Supervising Physician: Dr. ANDERSEN
[2025-03-12] MEDS: LIDOCAINE JELLY 2% (Urojet) 10 ML TUBE TOP (07:54)
== END 2025-03-12 08:15 | disposition home or self-care (01) ==
LOC: SERX 08:15
PROVIDERS: Emergency Provider Nurse Practitioner Family; PCP Family Medicine
DX: Z46.6 Encounter for fitting and adjustment of urinary device (principal); N40.1 Benign prostatic hyperplasia with lower urinary tract symptoms; R33.8 Other retention of urine
CPT/HCPCS: 51702; 99282; A4314

== ENCOUNTER 2025-03-16 13:12 | Emergency (ER) | payer MEDICAID, SELFPAY ==
[2025-03-16 14:15] VITALS: BP 169/82; PULSE 71; RESP 18; TEMP 36.8; O2SAT 97; BMI 22.9
--- NOTE | 2025-03-16 14:28 | EDNOTE_ITS ---
ED Eye Problem RME/HPI General Chief complaint: Eye Problems Stated complaint: METAL INJURY LEFT EYE Time Seen by Provider: 03/16/25 14:25 Arrival date/time: 03/16/25 13:12 This is a 64-year-old male who comes into the emergency room with complaints of grinding with a plate grinder and feels like a foreign body got into his left eye. Patient states that his eye has been hurting since yesterday when it happened. Patient denies any other trauma or any other complaints. Related Data Previous Rx's ?Medication ?Instructions ?Recorded hydrocodone 5 mg-acetaminophen 325 1 tab PO BID PRN pa in #10 tabs 09/20/ mg tablet ibuprofen 800 mg tablet 800 mg PO TID PRN pain #30 t abs 09/20/24 tamsulosin 0.4 mg capsule (Flomax) 0.4 mg PO QDAY #20 caps 10/01/24 acetaminophen 300 mg-codeine 30 mg 1 tab PO Q8H PRN pa in #20 tabs 10/26/24 tablet acetaminophen 300 mg-codeine 30 mg 1 tab PO Q8H PRN pa in #20 tabs 10/26/24 tablet hydrocodone 5 mg-acetaminophen 325 1 tab PO BID PRN pa in #6 tabs 10/29/24 mg tablet ketorolac 10 mg tablet 10 mg PO Q8H #10 tabs hydrocodone 5 mg-acetaminophen 325 1 tab PO BID PRN pa in #14 tabs 11/09/24 mg tablet acetaminophen 300 mg-codeine 30 mg 1 tab PO Q8H PRN pa in #20 tabs 11/11/24 tablet ibuprofen 600 mg tablet 600 mg PO Q6H PRN pain #30 t abs 11/11/24 acetaminophen 300 mg-codeine 30 mg 1 tab PO Q8H PRN pa in #20 tabs 12/14/24 tablet tamsulosin 0.4 mg capsule (Flomax) 0.4 mg PO QDAY #20 caps 12/14/24 ketorolac 10 mg tablet 10 mg PO Q6H PRN pain #30 ta bs 12/18/24 hydrocodone 5 mg-acetaminophen 325 1 tab PO BID PRN pa in #10 tabs 12/26/24 mg tablet hydrocodone 5 mg-acetaminophen 325 1 tab PO BID PRN pa in #10 tabs 12/27/24 mg tablet ciprofloxacin HCl 500 mg tablet 500 mg PO BID #14 tabs 12/28/24 (Cipro) hydrocodone 5 mg-acetaminophen 325 2 tab PO Q8H PRN pa in #20 tabs 12/29/24 mg tablet acetaminophen 500 mg tablet 1,000 mg (2 x 500 mg) PO Q 6H PRN 01/30/25 (Tylenol Extra Strength) pain #30 tabs doxycycline monohydrate 100 mg 100 mg PO BID #14 tabs 02/07/25 tablet famotidine 40 mg tablet (Pepcid) 40 mg PO BID #20 tabs 02/07/25 erythromycin 5 mg/gram (0.5 %) eye 0.5 inch ophthalmic (eye) BID #3.5 03/16/25 ointment grams Allergies Allergy/AdvReac Type Severity Reaction Status Date / Time No Known Allergies Allergy Verified 03/16/25 13:14 Review of Systems Review of Systems Systems Reviewed: All systems reviewed, normal except as documented Past Medical History Past Medical History NEUROLOGIC: Negative Neurological Disorders or Seizures CARDIAC: Negative Cardiac Disorders or Congestive Heart Failure RESPIRATORY: Negative Chronic Obstructive Pulmonary Disease (COPD) or Asthma GENITOURINARY: Positive Genitourinary Disorders, Kidney Stones and Benign Prostatic Hyperplasia; Negative Renal Disease MUSCULOSKELETAL: Positive Musculoskeletal Disorders and Degenerative Joint Disease ENDOCRINE: Negative Diabetes Mellitus Type 1 or Diabetes Mellitus Type 2 HEMATOLOGIC: Negative Sickle Cell Disease OTHER HISTORY: Negative Blood Transfusions, Blood Transfusion Reaction or Anesthesia Reactions Social History SMOKING STATUS: Current every day smoker SUBSTANCE USE: does not use ED Exam Narrative Physical exam: VITAL SIGNS: Reviewed. GENERAL APPEARANCE: Alert and interactive, follows commands, no acute distress HEAD AND FACE: Non-traumatic. ENT: PERRL, conjuctiva pink and clear, eyelid no trauma, Mucous membrane moist. eyes: When examining the patient's left eye patient has a area that is probably a small little dot that is not even a millimeter it is visible with the regular light on the Dong lamp. It is sitting at the end of the iris at a 2 o'clock position patient also has a small corneal abrasion to that area approximately 2 mm NECK: Supple, nontender, no nuchal rigidity. CHEST: No tenderness, no crepitus, no paradoxical movement, no retractions. LUNGS: breathing even and unlabored HEART: Regular rate, cap refill less than 2 seconds ABDOMEN: Soft, nondistended, no guarding, nontender, no rebound, no masses, NEUROLOGICAL: Gross motor function intact sensory function intact, Appropriate for age. MUSCULOSKELETAL: low back nontender, full range of motion. no midline tenderness, no meningismus, no step offs EXTREMITIES: No redness no swelling no skin breakdown on bilateral foot and leg. Distal neurovascular status intact bilateral foot SKIN: Color pink, dry, no rash, no lacerations, no abrasions, no contusions. Course Quality Measures none Orders Category Date Time Status Dong Lamp to Bedside X1 Care 03/16/25 14:28 Completed Erythromycin Op Oint 0.5% Med 03/16/25 15:22 Discontinued 1 gm LEFT EYE X1 ONE Fluorescein Sodium [Bio-Oanh] Med 03/16/25 14:28 Discontinued 1 mg LEFT EYE X1 ONE TETRACAINE Op Carolynn 0.5% [Pontocaine Op Carolynn 0.5%] Med 03/16/25 14:28 Discontinued 1 drop LEFT EYE X1 ONE Vital Signs Vital signs: Vital Signs Temperature 98.2 F 03/16/25 14:15 Pulse Rate 71 03/16/25 14:15 Respiratory Rate 18 03/16/25 14:15 Blood Pressure 169/82 H 03/16/25 14:15 Pulse Oximetry (%) 97 03/16/25 14:15 Oxygen Delivery Method Room Air 03/16/25 14:15 PROCEDURES: Dong Lamp Exam Left eye: Flourescein uptake:: Yes Dong Lamp Findings: Other (Small tiny foreign body seen at 2:00 at the edge of the iris patient also has a small tiny corneal abrasion around the same area of patient's eye. I was able to remove foreign body with Bovie bur with no issues. Patient tolerated procedure well patient tolerated procedure well) Eye MDM Narrative MDM Narrative:: I was able to remove foreign body from patient's left eye. I used a Bovie bur. Patient tolerated procedure well prior to discharge we put some erythromycin ointment on patient's eye. Patient told to follow-up with assistant business manager in 1 to 2 days. Come back to emergency room if symptoms change or worsen. Patient verbalized understanding. I will send patient home with erythromycin ointment. Dragon dictation: Although this document has been carefully reviewed, there may still be some phonetic and other typographical errors. These errors are purely grammatical due to imperfections in the software program and should not be construed in any way to compromise the substance of the patient's medical care during this visit. Patient data External records reviewed:: [facility] previous records Clinical information provided by:: patient Social determinants that could affect healthcare access:: none Patient has the following chronic illnesses:: none How is presenting disease/condition affected by chronic disease/condition?: no chronic disease Evaluation data The following diagnostics were reviewed and interpreted by me:: other (specify) (none ) Lab and/or radiology exams considered but not ordered:: see note Interpretation Summary: see note Medications / Prescriptions Medications or Prescriptions considered but not ordered:: see note Medication administrations:: Medication Administration History Discontinued Medications Erythromycin (Erythromycin Op Oint 0.5% 1 Gm Packet) 1 gm LEFT EYE X1 ONE Stop: 03/16/25 15:23 Last Admin: 03/16/25 15:46 Dose: 1 gm Documented By: JOSE EDUARDO Co-signed By: DELMY Fluorescein Sodium (Fluorescein Sod 1 Mg Strp) 1 mg LEFT EYE X1 ONE Stop: 03/16/25 14:29 Last Admin: 03/16/25 14:51 Dose: 1 mg Documented By: DELMY Comments: used by provider Tetracaine HCl (Tetracaine Pf Op Carolynn 0.5% 4 Ml Drpette) 1 drop LEFT EYE X1 ONE Stop: 03/16/25 14:29 Last Admin: 03/16/25 14:52 Dose: 1 drop Documented By: DELMY Comments: used by provider see mar Consultations Consultation(s) initiated? (list below): No Diagnosis Eye Problem Differential Diagnosis: corneal abrasion, conjunctivitis, corneal ulcer and other (foreighn body in eye ) Most likely diagnosis given after review of the tests above:: see note Admission Indicated Admission indicated?: not indicated Admission Request Was there a request for admission?: No Disposition Plan Disposition Plan: Discharge Discharge Attestation Discharge Attestation: The patient and all family members were given an opportunity to ask questions and understood the discharge instructions. Discharge instructions specifically effects, indications for sooner follow up or return to the emergency department, and the expected course of current diagnosis. Patient condition: Stable Discharge Plan Plan Patient Disposition: HOME (Self Care) Patient condition on transfer: Stable Prescriptions/Referrals Prescriptions/Med Rec: New erythromycin 5 mg/gram (0.5 %) ointment 0.5 inch ophthalmic (eye) BID Qty: 3.5 0RF No Action tamsulosin [Flomax] 0.4 mg capsule 0.4 mg PO QDAY Qty: 20 0RF acetaminophen-codeine 300-30 mg tablet 1 tab PO Q8H PRN (Reason: pain) Qty: 20 0RF acetaminophen-codeine 300-30 mg tablet 1 tab PO Q8H PRN (Reason: pain) Qty: 20 0RF hydrocodone-acetaminophen 5-325 mg tablet 1 tab PO BID MDD 10 PRN (Reason: pain) Qty: 14 0RF ibuprofen 600 mg tablet 600 mg PO Q6H PRN (Reason: pain) Qty: 30 0RF acetaminophen-codeine 300-30 mg tablet 1 tab PO Q8H PRN (Reason: pain) Qty: 20 0RF hydrocodone-acetaminophen 5-325 mg tablet 1 tab PO BID MDD 10 PRN (Reason: pain) Qty: 10 0RF ibuprofen 800 mg tablet 800 mg PO TID PRN (Reason: pain) Qty: 30 0RF hydrocodone-acetaminophen 5-325 mg tablet 1 tab PO BID MDD 10 PRN (Reason: pain) Qty: 10 0RF hydrocodone-acetaminophen 5-325 mg tablet 1 tab PO BID MDD 10mg PRN (Reason: pain) Qty: 6 0RF ketorolac 10 mg tablet 10 mg PO Q8H Qty: 10 0RF Rx Instructions: maximum total duration of 5 days from all oral, intranasal, or parenteral formulations acetaminophen-codeine 300-30 mg tablet 1 tab PO Q8H PRN (Reason: pain) Qty: 20 0RF tamsulosin [Flomax] 0.4 mg capsule 0.4 mg PO QDAY Qty: 20 0RF ketorolac 10 mg tablet 10 mg PO Q6H PRN (Reason: pain) Qty: 30 0RF Rx Instructions: maximum total duration of 5 days from all oral, intranasal, or parenteral formulations hydrocodone-acetaminophen 5-325 mg tablet 1 tab PO BID MDD 10mg PRN (Reason: pain) Qty: 10 0RF ciprofloxacin HCl [Cipro] 500 mg tablet 500 mg PO BID Qty: 14 0RF hydrocodone-acetaminophen 5-325 mg tablet 2 tab PO Q8H MDD 6 PRN (Reason: pain) Qty: 20 0RF acetaminophen [Tylenol Extra Strength] 500 mg tablet 1,000 mg PO Q6H PRN (Reason: pain) Qty: 30 0RF doxycycline monohydrate 100 mg tablet 100 mg PO BID Qty: 14 0RF famotidine [Pepcid] 40 mg tablet 40 mg PO BID Qty: 20 0RF Referrals: Parminder Lyles MD [Primary Care Provider, Family Practice] - In 1 week Problem List Clinical Impression: Foreign body, eye, Corneal abrasion Patient/Caregiver Discharge Instructions Discharge Activity: activity as tolerated Education Materials: ED Corneal Abrasion Additional Instructions: Please keep eyes protected when using a plate grinder. Use erythromycin ointment to eye as directed. Make an appointment with eye doctor. [place] to the emergency room symptoms change or worsen. Print Language: Kazakh Stand Alone Forms: Latoya Award Info., Patient Portal Info Letter PA/EXECUTIVE PILOT Supervising Physician ALPHONSO/CECILIA Supervising Physician: elmer
[2025-03-16] MEDS: FLUORESCEIN SOD 1 MG STRP LEFT EYE (14:51)
[2025-03-16] MEDS: TETRACAINE PF OP SOL 0.5% 4 ML DRPETTE 1 DROP LEFT EYE (14:52)
[2025-03-16] MEDS: Erythromycin Op Oint 0.5% 1 GM PACKET LEFT EYE (15:46)
== END 2025-03-16 18:12 | disposition home or self-care (01) ==
PROVIDERS: Emergency Provider Nurse Practitioner Family; PCP Family Medicine
DX: T15.02XA Foreign body in cornea, left eye, initial encounter (principal); W44.8XXA Other foreign body entering into or through a natural orifice, initial encounter
CPT/HCPCS: 65220; 99281; A9270